=== PATIENT | female | born 1950 | race Caucasian/White ===

== ENCOUNTER 2018-04-03 17:34 | Inpatient (IN) ==
--- NOTE | 2018-04-03 18:12 | ED ---
HPI General Chief complaint: Medical Clearance Stated complaint: Psych Eval Time Seen by Provider: 04/03/18 17:55 Source: patient and EMS Mode of arrival: EMS Limitations: no limitations History of Present Illness HPI Narrative: Patient is a 67-year-old female presenting to emergency department by EMS for evaluation of shortness of breath. Patient voluntarily presented to [facility], during the intake she reported that she had COPD and had chronic shortness of breath. The stated that she is out of their scope of care and sent her to the emergency department. Upon arrival patient reports that she has been anxious and feels overwhelmed and depressed because of her living situation. She states that her mother's landlord is no longer allowing her to stay in that home because she is not on the lease. She is also stating that he is requiring her to do things to the home that she cannot afford to do such as wagon washer and put mulch around the home. Patient states her family is 4 hours away in [place], she states that they are not available to help financially or physically. Patient reports that the situation is becoming too much for her to handle and she feels like going outside and is throwing her hands up and screaming. Patient reports a previous suicide attempt when she was in her early 20s by overdose. Patient denies any nausea, vomiting, chest pain, abdominal pain, shortness of breath currently. MD complaint: medical clearance requested Reason for Medical Clearance: psychiatric condition Alleged Intoxication: No Traumatic Symptoms: denies traumatic injury Home Medications Medication Instructions Recorded Confirmed albuterol sulfate 2.5 mg INHALATION Q4H PRN 04/03/18 04/03/18 albuterol sulfate [Proventil HFA] 2 puff INHALATION Q4H PRN 04/03/18 04/03/18 aspirin 81 mg PO DAILY 04/03/18 04/03/18 diltiazem HCl 180 mg PO DAILY 04/03/18 04/03/18 gabapentin 100 mg PO BID 04/03/18 04/03/18 hydralazine 50 mg PO TID 04/03/18 04/03/18 ranitidine HCl 150 mg PO BID 04/03/18 04/03/18 rivaroxaban 20 mg PO DAILY 04/03/18 04/03/18 Allergies Allergy/AdvReac Type Severity Reaction Status Date / Time No Known Allergies Allergy Verified 04/03/18 17:58 Review of Systems Except as stated in HPI: all other systems reviewed are negative PMFSH History History Provided By: Patient Medical History Medical History Anterior urethral stricture (Acute) Anxiety (Acute) COPD (chronic obstructive pulmonary disease) (Acute) Depression (Acute) Edema (Acute) Hypertension (Acute) Pulmonary embolism (Acute) Surgical History Surgical History Hx of cholecystectomy (Acute) Previous section (Acute) Social History Social History Substance History: No History of Abuse Second Hand Smoke Exposure: No Smoking Status: Former smoker Tobacco Type: Cigarettes How Often Do You Have a Drink Containing Alcohol: Never Recent Travel in [facility] within the Last 8 Weeks: No Recent Out of Country Travel within the Last 8 Weeks: No Exam Narrative Exam Narrative: GENERAL: Disheveled, alert, well-developed female. Presenting in no acute distress. SKIN: Focused skin assessment warm/dry. HEAD: Atraumatic. Normocephalic. EYES: Pupils equal and round. No scleral icterus. No injection or drainage. ENT: No nasal bleeding or discharge. Mucous membranes pink and moist. NECK: Trachea midline. No JVD. CARDIOVASCULAR: Regular rate and rhythm. No murmur appreciated. RESPIRATORY: No accessory muscle use. Diminished in bases GASTROINTESTINAL: Abdomen soft, non-tender, nondistended. Hepatic and splenic margins not palpable. MUSCULOSKELETAL: No obvious deformities. No clubbing. No cyanosis. No edema. NEUROLOGICAL: Awake and alert. No obvious cranial nerve deficits. Motor grossly within normal limits. Normal speech. PSYCHIATRIC: Appropriate mood and affect; insight and judgment normal. Course Initial Documented Vital Signs Temperature 97.9 F 04/03/18 17:53 Pulse Rate 80 04/03/18 17:53 Respiratory Rate 24 04/03/18 17:53 Blood Pressure 154/69 H 04/03/18 17:53 Pulse Oximetry 96 04/03/18 17:53 Last Documented Vital Signs Temperature 97.9 F 04/03/18 17:53 Pulse Rate 82 04/03/18 18:11 Respiratory Rate 18 04/03/18 18:11 Blood Pressure 154/69 H 08/03/18 18:04 Pulse Oximetry 96 04/03/18 18:11 Medical Decision Making MDM Narrative Medical decision making narrative: Patient is a 59-year-old female that presented to the emergency department voluntarily for psychiatric evaluation. She has stable vital signs. Mental health screening discussed with the patient. Psychiatric screen ordered. Labs reviewed, no acute finding identified. Chest x-ray shows no acute abnormalities. Patient was given nebulizer treatments, Solu-Medrol and IV fluids in the emergency department. She is well oxygenated on room air, patient is cleared for psychiatric screen. Differential Diagnosis Differential Diagnosis: OPD exacerbation versus metabolic abnormality versus psychosis versus depression versus suicidal ideations versus anxiety versus other Lab Data Result diagrams: 04/03/18 18:06 04/03/18 18:06 Lab Results 04/03/18 04/03/18 04/03/18 Range/Units 18:06 18:06 18:06 WBC 9.4 (4.0-11.0) th/mm3 RBC 4.38 (4.00-5.30) mil/mm3 Hgb 11.8 (11.6-15.3) gm/dL Hct 35.5 (35.0-46.0) % MCV 81.1 (80.0-100.0) fL MCH 27.0 (27.0-34.0) pg MCHC 33.3 (32.0-36.0) % RDW 22.8 H (11.6-17.2) % Plt Count 225 (150-450) th/mm3 MPV 8.2 (7.0-11.0) fL Neut % (Auto) 89.3 H (16.0-70.0) % Lymph % (Auto) 7.4 L (9.0-44.0) % [place] % (Auto) 2.8 (0.0-8.0) % Eos % (Auto) 0.3 (0.0-4.0) % Baso % (Auto) 0.2 (0.0-2.0) % Neut # (Auto) 8.4 H (1.8-7.7) th/mm3 Lymph # (Auto) 0.7 L (1.0-4.8) th/mm3 [place] # (Auto) 0.3 (0.0-0.9) th/mm3 Eos # (Auto) 0.0 (0.0-0.4) th/mm3 Baso # (Auto) 0.0 (0.0-0.2) th/mm3 WBC Differential . Differential Comment Auto diff final Sodium 142 (136-145) meq/L Potassium 4.1 (3.5-5.1) meq/L Chloride 109 H (98-107) meq/L Carbon Dioxide 23.8 (21.0-32.0) meq/L Anion Gap 9 (5-15) meq/L BUN 16 (7-18) mg/dL Creatinine 1.53 H (0.50-1.00) mg/dL Estimated GFR 34 L (>89) mL/min Random Glucose 239 H (74-106) mg/dL Calcium 8.8 (8.5-10.1) mg/dL Magnesium 2.3 (1.5-2.5) mg/dL Total Bilirubin 0.4 (0.2-1.0) mg/dL AST 12 L (15-37) U/L ALT 17 (10-53) U/L Alkaline Phosphatase 66 (45-117) U/L Total Protein 6.9 (6.4-8.2) g/dL Albumin 3.8 (3.4-5.0) g/dL TSH 1.510 (0.358-3.740) uIU/mL Imaging Data Radiologist's impression: Chest X-Ray 04/03/18 17:58 CONCLUSION: Negative examination. Reviewed radiology reports Discharge Plan Discharge Disposition Patient Disposition: 30 Still Patient Discharge Condition Condition: Stable Discharge Details Diagnosis: Medical clearance for psychiatric admission, COPD (chronic obstructive pulmonary disease) Physicians Team ED Provider: Isabelle Caal ED Midlevel Provider: Kaila Pan Primary Care Provider: Primary Care Violet Kim Rxs /Orders / Referrals /Forms Prescriptions: No Action diltiazem HCl 180 mg Capsule,Extended Release 24 Hr 180 mg PO DAILY RF: 0 albuterol sulfate 2.5 mg /3 mL (0.083 %) Solution For Nebulization 2.5 mg INHALATION Q4H PRN (Reason: Shortness Of Breath) RF: 0 aspirin 81 mg Tablet,Chewable 81 mg PO DAILY RF: 0 hydralazine 50 mg Tablet 50 mg PO TID RF: 0 ranitidine HCl 150 mg Capsule 150 mg PO BID RF: 0 gabapentin 100 mg Capsule 100 mg PO BID RF: 0 albuterol sulfate [Proventil HFA] 90 mcg/actuation Hfa Aerosol Inhaler 2 puff INHALATION Q4H PRN (Reason: Wheezing) RF: 0 rivaroxaban 20 mg Tablet 20 mg PO DAILY RF: 0 Discharge Interventions Interventions: Vital Signs Last Done: 04/03/18 18:04 Status ED Status: With Doctor
[2018-04-03 18:20] LABS: Baso % (Auto) 0.2 % (0.0-2.0); Eos % (Auto) 0.3 % (0.0-4.0); Hematocrit 35.5 % (35.0-46.0); Hemoglobin 11.8 gm/dL (11.6-15.3); Lymph # (Auto) 0.7 th/mm3 (1.0-4.8); Lymph % (Auto) 7.4 % (9.0-44.0); Mean Corpuscular HGB Conc 33.3 % (32.0-36.0); Mean Corpuscular Volume 81.1 fL (80.0-100.0); Mean Platelet Volume 8.2 fL (7.0-11.0); Mono # (Auto) 0.3 th/mm3 (0.0-0.9); Mono % (Auto) 2.8 % (0.0-8.0); Neut # (Auto) 8.4 th/mm3 (1.8-7.7); Neut % (Auto) 89.3 % (16.0-70.0); Platelet Count 225 th/mm3 (150-450); Red Blood Count 4.38 mil/mm3 (4.00-5.30); Red Cell Distribution Width 22.8 % (11.6-17.2); White Blood Count 9.4 th/mm3 (4.0-11.0)
[2018-04-03 18:44] LABS: Alkaline Phosphatase 66 U/L (45-117); Total Protein 6.9 g/dL (6.4-8.2)
[2018-04-03 18:49] LABS: Alanine Aminotransferase 17 U/L (10-53); Albumin 3.8 g/dL (3.4-5.0); Anion Gap 9 meq/L (5-15); Aspartate Aminotransferase 12 U/L (15-37); Blood Urea Nitrogen 16 mg/dL (7-18); Calcium 8.8 mg/dL (8.5-10.1); Carbon Dioxide 23.8 meq/L (21.0-32.0); Chloride 109 meq/L (98-107); Glomerular Filtration Rate 34 mL/min (>89); Glucose,Random 239 mg/dL (74-106); Magnesium 2.3 mg/dL (1.5-2.5); Potassium 4.1 meq/L (3.5-5.1); Sodium 142 meq/L (136-145)
--- NOTE | 2018-04-03 19:31 | XR ---
EXAM DATE: 04/03/2018 7:17 PM EDT AGE/SEX: 67 years / Female INDICATIONS: Short of breath. CLINICAL DATA: This is the patient's initial encounter. Patient reports that signs and symptoms have been present for 2 days and indicates a pain score of 3/10. MEDICAL/SURGICAL HISTORY: None. None. COMPARISON: No prior exams available for comparison. FINDINGS: A single AP view of the chest demonstrates the lungs to be symmetrically aerated without evidence of mass, infiltrate or effusion. The cardiomediastinal contours are unremarkable. Osseous structures a re intact. CONCLUSION: Negative examination. Electronically signed by: Ezio Hart MD 04/03/2018 7:29 PM EDT
[2018-04-03] MEDS ORDERED: Sod Chloride 0.9% Inj 1,000 ML IV.SIG ONE (19:48)
[2018-04-03] MEDS ORDERED: MethylPREDNISolone Sod Succinate Inj 125 MG/2 ML Vial IV.PUSH ONE (19:48)
[2018-04-03] MEDS ORDERED: Acetaminophen 500 MG Tablet PO ONE (20:42)
[2018-04-03] MEDS ORDERED: ALPRAZolam 0.25 MG Tablet PO ONE (20:42)
[2018-04-03 20:57] LABS: Bacteria,Urine Many /hpf; Bilirubin,Urine Negative (Negative); Clarity,Urine Cloudy (Clear); Color,Urine Yellow (Yellw/Straw); Glucose,Urine (UA) 150 mg/dL (Negative); Hyaline Casts,Urine 7 /lpf (0-3); Leukocyte Esterase,Urine Large (Negative); Nitrite,Urine Positive (Negative); Squamous Epithelial Cell,Urine 1 /hpf (0-5)
[2018-04-04] MEDS ORDERED: Aluminum/Magnesium/Simethacone Susp 30 ML UDC PO PRN (02:00)
[2018-04-04] MEDS: Acetaminophen 325 MG Tablet PO PRN (03:22)
[2018-04-04 07:24] LABS: Calcium 9.2 mg/dL (8.5-10.1); Carbon Dioxide 20.3 meq/L (21.0-32.0)
[2018-04-04 07:28] LABS: Chol/HDL Ratio 4.44 Ratio; HDL Cholesterol 66.1 mg/dL (40.0-60.0)
[2018-04-04] MEDS: hydrALAZINE 50 MG Tablet PO SCH ×3 (09:52→17:12)
[2018-04-04] MEDS: Gabapentin 100 MG Capsule PO SCH ×2 (09:52→20:25)
[2018-04-04] MEDS: Famotidine 20 MG Tablet PO SCH ×2 (09:53→20:25)
[2018-04-04] MEDS: dilTIAZem CD 180 MG Capsule PO SCH (10:33)
[2018-04-04] MEDS: Rivaroxaban 20 MG Tablet PO SCH (10:33)
[2018-04-04] MEDS ORDERED: Sertraline 50 MG Tablet PO ONE (11:12)
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
[2018-04-04] MEDS ORDERED: Non-Formulary Drug (Diltiazem Hcl [Diltiazem Hcl] 180 MG) PO SCH (15:00)
[2018-04-04] MEDS ORDERED: Rivaroxaban 20 MG Tablet PO SCH (15:00)
--- NOTE | 2018-04-04 17:44 | CT ---
EXAM DATE: 04/04/2018 5:40 PM EDT AGE/SEX: 67 years / Female INDICATIONS: Shortness of breath. CLINICAL DATA: This is the patient's initial encounter. Patient reports that signs and symptoms have been present for 1 day and indicates a pain score of 0/10. MEDICAL/SURGICAL HISTORY: Hypertension. Chronic obstructive pulmonary disease. Cholecystectomy. RADIATION DOSE: 10.85 CTDI (mGy) COMPARISON: No prior exams available for comparison. TECHNIQUE: Volumetric scanning was performed using a multi-row detector CT scanner during bolus infu lidia of 70 ml Omnipaque 350 (iohexol) nonionic water-soluble contrast as a single exam dose. The vikki a was post processed with a variety of visualization algorithms including full volume maximum intensi ty projection and sliding thin slab reformation. Using automated exposure control and adjustment of the mA and/or kV according to patient size, radiation dose was kept as low as reasonably achievable t o obtain optimal diagnostic quality images. DICOM format image data is available electronically for review and comparison. FINDINGS: No filling defects are seen to suggest pulmonary embolic disease. There is no lung consolidation. No pleural or pericardial effusion. Moderate emphysema. No hilar, mediastinal or axillary adenopathy. Mo derate coronary calcifications. No acute findings in the upper abdomen. CONCLUSION: 1. Negative for pulmonary embolus. Emphysema. Moderate coronary calcifications. Electronically signed by: Ezio Hart MD 04/04/2018 5:43 PM EDT
--- NOTE | 2018-04-04 18:22 | P.CON ---
History of Present Illness Service: Hospitalist Consult date: 04/04/18 Requesting Physician: Brando Khan Reason for Consult: Medical Management Primary Care Provider: No Primary Care Physician Chief Complaint: I can't breathe History of Present Illness: Patient is a 67-year-old female who presented to the emergency room by EMS for evaluation of shortness of breath. She had previously been at [facility] and during intake she reported COPD with shortness of breath and they directed her to the emergency room. Upon arrival to the emergency room she reported anxiety and depression and was admitted to inpatient psychiatry for additional evaluation. Past medical history includes COPD, asthma, hypertension diabetes, pulmonary embolism, peripheral artery disease with a stent in the left leg. Patient is a somewhat poor historian however it appears that her PE was a result of DVT. She tells me that she is not taking any medication for her diabetes as she feels it resolved after she lost 40 her feet pounds. She does not know prior A1c. She does have a history of cardiac problems for which she takes Cardizem however she cannot tell me details. She does report having been in the hospital and plaque at least 10 times last year. She did bring in her medications -multiple pill bottles are found partially empty -patient's adherence to medical plan is questionable. Patient is seen sitting in room after breathing treatment. She reports continued SOB despite treatments. Reports that she had chest pain last night however is not able to quantify the pain -eventually settles on a description of fluttering rather than true pain. Pain resolved on its own after a few minutes. It is not repeated since. She does complain of swelling in her feet bilaterally however this is chronic. No new calf pain tenderness. [facility] - History History Provided By: Patient, Medical Record - Medical History Medical History: Medical History (Last Reviewed 04/03/18 @ 18:12 by LEODAN Khoury) Anterior urethral stricture Anxiety COPD (chronic obstructive pulmonary disease) Depression Edema Hypertension Pulmonary embolism - Surgical History Surgical History: Surgical History (Last Reviewed 04/03/18 @ 18:12 by LEODAN Khoury) Hx of cholecystectomy Previous section - Tobacco History Second Hand Smoke Exposure: No Smoking Status: Never smoker Tobacco Type: Cigarettes - Alcohol History How Often Do You Have a Drink Containing Alcohol: Never - Substance Use History Substance History: Past History - Substance Use Type Alcohol Status: Sustained Remission Route Used: By Mouth Comment: she used to smoke too - Travel History Recent Travel in the [place] Within the Last 8 Weeks: No Recent Travel Out of the Country Within the Last 8 Weeks: No - Immunization History Tetanus Immunization: Unsure Hx Influenza Vaccine This Season: Yes Medications and Allergies Active Medications: Active Medications Acetaminophen (Tylenol) 650 mg PO Q4H PRN PRN Reason: Pain 1-5 or Temp >101F Last Admin: 04/04/18 03:22 Dose: 650 mg Al Hydrox/Mg Hydrox/Simethicone (Mag-Al Plus Susp Liq) 30 ml PO Q6H PRN PRN Reason: DYSPEPSIA Al Hydroxide/Mg Hydroxide (Milk Of Magnesia Liq) 30 ml PO Q12H PRN PRN Reason: Constipation Albuterol (Ventolin Hfa Inh) 2 puff INH Q4H PRN PRN Reason: SHORTNESS OF BREATH Albuterol (Albuterol Neb (Prn)) 2.5 mg NEB Q4HR NEB PRN PRN Reason: SHORTNESS OF BREATH Last Admin: 04/04/18 14:05 Dose: 2.5 mg Aspirin (Aspirin Chew) 81 mg PO DAILY [facility] Last Admin: 04/04/18 09:53 Dose: 81 mg Diltiazem HCl (Cardizem Cd 24hr) 180 mg PO DAILY [facility] Last Admin: 04/04/18 10:33 Dose: 180 mg Diphenhydramine HCl (Benadryl Inj) 50 mg IM HS PRN PRN Reason: INSOMNIA Diphenhydramine HCl (Benadryl) 50 mg PO HS PRN PRN Reason: INSOMNIA Famotidine (Pepcid) 20 mg PO BID [facility] Last Admin: 04/04/18 09:53 Dose: 20 mg Gabapentin (Neurontin) 100 mg PO BID [facility] Last Admin: 04/04/18 09:52 Dose: 100 mg Hydralazine HCl (Apresoline) 50 mg PO TID [facility] Last Admin: 04/04/18 17:12 Dose: 50 mg Hydroxyzine HCl (Atarax) 50 mg PO Q6H PRN PRN Reason: ANXIETY Last Admin: 04/04/18 17:12 Dose: 50 mg Rivaroxaban (Xarelto) 20 mg PO DAILY [facility] Last Admin: 04/04/18 10:33 Dose: 20 mg Sertraline HCl (Zoloft) 50 mg PO DAILY [facility] Sodium Chloride (Ns Flush) 2 ml IV.FLUSH PRN PRN PRN Reason: FLUSH AFTER USING IV ACCESS Allergies Allergy/AdvReac Type Severity Reaction Status Date / Time No Known Allergies Allergy Verified 04/03/18 17:58 Home Medications Medication Instructions Recorded Confirmed Type albuterol sulfate 2.5 mg INHALATION Q4H PRN 04/03/18 04/03/18 History albuterol sulfate [Proventil HFA] 2 puff INHALATION Q4H PRN 04/03/18 04/03/18 History aspirin 81 mg PO DAILY 04/03/18 04/03/18 History diltiazem HCl 180 mg PO DAILY 04/03/18 04/03/18 History gabapentin 100 mg PO BID 04/03/18 04/03/18 History hydralazine 50 mg PO TID 04/03/18 04/03/18 History ranitidine HCl 150 mg PO BID 04/03/18 04/03/18 History rivaroxaban 20 mg PO DAILY 04/03/18 04/03/18 History Physical Exam Vital signs: Vital Signs 04/03/18 17:53 04/03/18 18:04 04/03/18 18:11 Temperature 97.9 F Pulse Rate 80 80 82 Respiratory Rate 24 22 18 Blood Pressure 154/69 H 154/69 H Pulse Oximetry 96 96 96 04/04/18 02:00 04/04/18 03:08 04/04/18 04:00 Temperature 97.8 F Pulse Rate 22 L 99 H Respiratory Rate 20 18 Blood Pressure 252/114 H 172/89 H Pulse Oximetry 96 04/04/18 06:28 04/04/18 08:29 04/04/18 09:28 Temperature 98.1 F Pulse Rate 83 84 80 Respiratory Rate 16 20 18 Blood Pressure 218/100 H 190/80 H Pulse Oximetry 98 95 04/04/18 14:05 Temperature Pulse Rate 79 Respiratory Rate 20 Blood Pressure Pulse Oximetry Intake & Output 04/03/18 04/04/18 04/04/18 18:59 06:59 18:59 Weight 79.379 kg 76.9 kg Other: Weight On Admission 76.9 kg Assessment and Plan - Plan 67-year-old female who presented to the emergency room by EMS for evaluation of shortness of breath. She had previously been at [facility] and during intake she reported COPD with shortness of breath and they directed her to the emergency room. Upon arrival to the emergency room she reported anxiety and depression and was admitted to inpatient psychiatry for additional evaluation. Past medical history includes COPD, asthma, hypertension, diabetes , pulmonary embolism, peripheral artery disease with a stent in the left leg. Patient is a somewhat poor historian. Depression/ anxiety -Managed by psychiatry COPD -Albuterol, nebs, prednisone -Monitor sats; [facility]. DVT/PE -Continue Xarelto -Rule out new PE -CTAP done 04/04 negative for PE Hypertension -Continue Cardizem -ECG ordered; BNP r/o CHF Edema -Add Lasix; monitor lab Diabetes - resolved -Not currently taking any medications; A1C 6.0 UTI - acute -04/04 started Keflex for 7 days DVT prophylaxis: Patient is on Xarelto Discussed with: Patient, nurse and Dr. Alvarez
[2018-04-04] MEDS: Furosemide 20 MG Tablet PO SCH (19:54)
[2018-04-04] MEDS: predniSONE 20 MG Tablet PO SCH (19:54)
[2018-04-05 07:07] LABS: Lymph # (Auto) 0.8 th/mm3 (1.0-4.8); Lymph % (Auto) 7.1 % (9.0-44.0); Mean Corpuscular HGB Conc 32.3 % (32.0-36.0); Mean Corpuscular Hemoglobin 26.3 pg (27.0-34.0); Mean Corpuscular Volume 81.4 fL (80.0-100.0); Mean Platelet Volume 8.2 fL (7.0-11.0); Mono # (Auto) 0.4 th/mm3 (0.0-0.9); Mono % (Auto) 3.8 % (0.0-8.0); Neut # (Auto) 9.7 th/mm3 (1.8-7.7); Neut % (Auto) 89.1 % (16.0-70.0); Platelet Count 222 th/mm3 (150-450); Red Blood Count 4.17 mil/mm3 (4.00-5.30); Red Cell Distribution Width 22.8 % (11.6-17.2); White Blood Count 10.9 th/mm3 (4.0-11.0)
[2018-04-05 07:40] LABS: Calcium 9.1 mg/dL (8.5-10.1); Carbon Dioxide 24.5 meq/L (21.0-32.0); Potassium 4.3 meq/L (3.5-5.1)
--- NOTE | 2018-04-05 08:48 | US ---
EXAM DATE: 04/05/2018 8:43 AM EDT AGE/SEX: 67 years / Female INDICATIONS: Bilateral leg swelling. CLINICAL DATA: This is the patient's initial encounter. Patient reports that signs and symptoms have been present for 1 week and indicates a pain score of 9/10. MEDICAL/SURGICAL HISTORY: Chronic obstructive pulmonary disease. Hypertension. Anterior urethr al stricture. Anxiety. Depression. Edema. Pulmonary embolism. Cholecystectomy. section. COMPARISON: No prior exams available for comparison. TECHNIQUE: Venous ultrasound of both lower extremities was performed from the inguinal ligament to t he proximal calf. Real-time, color Doppler and spectral tracing, compression and augmentation techni ques were used. FINDINGS: Right Leg: Normal compression of the deep venous system from the inguinal region to the proximal teri f. No echogenic clot is seen. Normal response of the venous system to augmentation and respiration. Left Leg: Normal compression of the deep venous system from the inguinal region to the proximal calf . No echogenic clot is seen. Normal response of the venous system to augmentation and respiration. Other: None. CONCLUSION: 1. The study is negative for bilateral lower extremity deep venous thrombosis. Electronically signed by: Vandana Quintanilla MD 04/05/2018 8:46 AM EDT
--- NOTE | 2018-04-05 08:56 | ECG ---
Date Performed: 04/04/2018 Time Performed: 15:20:27 PTAGE: 67 years EKG: Sinus rhythm MODERATE T-WAVE ABNORMALITY, CONSIDER LATERAL ISCHEMIA MODERATE T-WAVE ABNORMALITY, CONSIDER INFERIO R ISCHEMIA ABNORMAL ECG NO PREVIOUS TRACING DOCTOR: Melisa Rebollar Interpretating Date/Time 04/05/2018 08:54:15
[2018-04-05] MEDS: Famotidine 20 MG Tablet PO SCH ×2 (10:22→20:54)
[2018-04-05] MEDS: Gabapentin 100 MG Capsule PO SCH ×2 (10:22→20:54)
[2018-04-05] MEDS: Furosemide 20 MG Tablet PO SCH (10:22)
[2018-04-05] MEDS: dilTIAZem CD 180 MG Capsule PO SCH (10:22)
[2018-04-05] MEDS: Sertraline 50 MG Tablet PO SCH (10:22)
[2018-04-05] MEDS: predniSONE 20 MG Tablet PO SCH (10:23)
[2018-04-05] MEDS: Rivaroxaban 20 MG Tablet PO SCH (10:23)
[2018-04-05] MEDS: hydrALAZINE 50 MG Tablet PO SCH ×3 (10:24→17:28)
--- NOTE | 2018-04-05 12:40 | ECHRPT ---
Indication: HEART FAILURE CONCLUSIONS Normal left ventricular size. Mild concentric left ventricular hypertrophy. The left ventricular systolic function is hyperdynamic with an estimated ejection fraction in the ra nge of 65- 70%. A possible atrial level shunt is demonstrated by color flow Doppler interrogation, clinical correlat ion recommended. Aortic valve sclerosis is present. There is trace tricuspid valve regurgitation. The estimated pulmonary arterial pressure is 36 mmHg. Trivial pulmonary valve regurgitation. mild mr A prominent epicardial fat pad is present. BP: / HR: Rhythm: Sinus, PVCs MEASUREMENTS (Male / Female) Normal Values Technical Quality:Fair 2D ECHO LV Diastolic Diameter PLAX 5.3 cm 4.2 - 5.9 / 3.9 - 5.3 cm LV Systolic Diameter PLAX 3.4 cm IVS Diastolic Thickness 1.4 cm 0.6 - 1.0 / 0.6 - 0.9 cm LVPW Diastolic Thickness 1.4 cm 0.6 - 1.0 / 0.6 - 0.9 cm LV Relative Wall Thickness 0.5 RV Internal Dim ED PLAX 2.0 cm LVOT Diameter 2.4 cm Aortic Root Diameter 2.8 cm LA Systolic Diameter LX 3.8 cm 3.0 - 4.0 / 2.7 - 3.8 cm M-MODE AV Cusp Separation MM 1.7 cm DOPPLER AV Peak Velocity 174.0 cm/s AV Peak Gradient 12.1 mmHg AV Mean Gradient 6.0 mmHg AV Velocity Time Integral 35.5 cm LVOT Peak Velocity 96.3 cm/s LVOT Peak Gradient 3.7 mmHg LVOT Velocity Time Integral 19.2 cm AV Area Cont Eq vti 2.4 cm AV Area Cont Eq pk 2.5 cm Mitral E Point Velocity 99.2 cm/s Mitral A Point Velocity 81.4 cm/s Mitral E to A Ratio 1.2 LV E' Lateral Velocity 8.3 cm/s Mitral E to LV E' Lateral Ratio 12.0 LV E' Septal Velocity 6.6 cm/s Mitral E to LV E' Septal Ratio 15.0 TR Peak Velocity 255.0 cm/s TR Peak Gradient 26.0 mmHg Right Atrial Pressure 10.0 mmHg Pulmonary Artery Systolic Pressu 36.0 mmHg Right Ventricular Systolic Press 36.0 mmHg PV Peak Velocity 79.7 cm/s PV Peak Gradient 2.5 mmHg FINDINGS LEFT VENTRICLE Normal left ventricular size. Mild concentric left ventricular hypertrophy. The left ventricular systolic function is hyperdynamic with an estimated ejection fraction in the ra nge of 65- 70%. RIGHT VENTRICLE Normal right ventricular size and systolic function. LEFT ATRIUM The left atrial size is normal. RIGHT ATRIUM The right atrial size is normal. ATRIAL SEPTUM A possible atrial level shunt is demonstrated by color flow Doppler interrogation, clinical correlat ion recommended. AORTA The aortic root and proximal ascending aorta are normal in size on limited imaging. MITRAL VALVE Structurally normal mitral valve. No mitral valve stenosis or regurgitation. AORTIC VALVE Aortic valve sclerosis is present. TRICUSPID VALVE There is trace tricuspid valve regurgitation. The estimated pulmonary arterial pressure is 36 mmHg. PULMONARY VALVE Trivial pulmonary valve regurgitation. VESSELS The inferior vena cava is normal in size. PERICARDIUM A prominent epicardial fat pad is present. No pericardial effusion. Robert Hooks MD, FACC, [facility] (Electronically Signed) Final Date:05 April 2018 12:38
--- NOTE | 2018-04-05 13:23 | P.PNPSY ---
Subjective Remarks: Reviewed electronic medical records and discussed case with staff. Follow-up was conducted in the day room. Her nurse reports she remains very somatic. I found the patient eating heartily of her lunch tray. She reports that she is feeling "terrible". When asked if she has attended any of the group therapy sessions she responded, "why would I do that". She then goes on to say that she is here until her living arrangements and her medications are straightened out. When I explained to her that this is a psychiatric unit for people with mental illness she responds, "what I did not say I do not have one of those". She has been observed in the halls requesting breathing treatments stating she is having difficulty breathing although she talks without any shortness of breath. Mental Status Examination Appearance: Disheveled (Slightly) Consciousness: Alert Orientation: Person, Place, Date/Time Motor Activity: Normal gait Speech: Unremarkable Language: Adequate Fund of Knowledge: Inadequate Attention and Concentration: Adequate Memory: Unremarkable Mood: Anxious Affect: Anxious Thought Process & Associations: Intact, Linear Thought Content: Appropriate Hallucination Type: None Delusion Type: None Suicidal Ideation: No Suicidal Plan: No Suicidal Intention: No Homicidal Ideation: No Homicidal Plan: No Homicidal Intention: No Insight: Fair Judgment: Impulsive Assessment and Plan - Assessment (1) Acute adjustment disorder with mixed anxiety and depressed mood Code(s): F43.23 - Adjustment disorder with mixed anxiety and depressed mood Status: Acute - Plan Plan: Patient will be reevaluated tomorrow by the attending psychiatrist. Continue with current treatment plan. Justification for Continued Inpatient Stay: Moving this patient to a less restrictive environment would likely result in decompensation.
--- NOTE | 2018-04-05 13:55 | P.PN ---
Subjective Interval history: Patient is seen sitting in room. She has just completed a breathing treatment. She tells me she is breathing better however she very quickly becomes anxious as she discusses her situation. Appears to be fixated on what will happen to her when she is discharged; very worried about the fact that she has no money. Denies any chest pain. Denies any nausea vomiting or diarrhea. She is tolerating her meals well. Normal bowel movements and urination per her report. Physical Exam Vital signs: Vital Signs 04/04/18 14:05 04/04/18 21:17 04/05/18 04:00 Temperature Pulse Rate 79 90 92 H Respiratory Rate 20 18 18 Blood Pressure Pulse Oximetry 98 04/05/18 05:13 04/05/18 10:06 Temperature 97.9 F Pulse Rate 62 62 Respiratory Rate 18 16 Blood Pressure 175/76 H Pulse Oximetry 98 Intake & Output 04/04/18 04/05/18 04/05/18 18:59 06:59 18:59 Intake Total 360 / 360 Balance 360 / 360 Intake: Oral 360 / 360 Narrative: GENERAL: Well-nourished, well-developed adult female in no obvious distress. SKIN: Warm and dry. HEAD: Atraumatic. Normocephalic. CARDIOVASCULAR: Regular rate and rhythm. RESPIRATORY: No accessory muscle use. wheeze. Breath sounds equal bilaterally. GASTROINTESTINAL: Abdomen soft, non-tender, non-distended. Positive bowel sounds. MUSCULOSKELETAL: Generalized edema lower extremities, + 1 at ankles. No obvious deformities. NEUROLOGICAL: Awake and alert. No obvious cranial nerve deficits. Motor grossly within normal limits. Normal speech. Results - Labs CBC & Chem 7: 04/05/18 06:35 04/05/18 06:35 Laboratory Results - last 24 hr 04/04/18 04/04/18 04/04/18 06:21 16:07 16:07 WBC RBC Hgb Hct MCV MCH MCHC RDW Plt Count MPV Neut % (Auto) Lymph % (Auto) [place] % (Auto) Eos % (Auto) Baso % (Auto) Neut # (Auto) Lymph # (Auto) [place] # (Auto) Eos # (Auto) Baso # (Auto) WBC Differential Differential Comment D-Dimer Quant (PE/DVT) 0.21 Sodium Potassium Chloride Carbon Dioxide Anion Gap BUN Creatinine Estimated GFR Random Glucose Hemoglobin A1c 6.0 Calcium B-Natriuretic Peptide 358 H 04/05/18 04/05/18 06:35 06:35 WBC 10.9 RBC 4.17 Hgb 11.0 L Hct 34.0 L MCV 81.4 MCH 26.3 L MCHC 32.3 RDW 22.8 H Plt Count 222 MPV 8.2 Neut % (Auto) 89.1 H Lymph % (Auto) 7.1 L [place] % (Auto) 3.8 Eos % (Auto) 0.0 Baso % (Auto) 0.0 Neut # (Auto) 9.7 H Lymph # (Auto) 0.8 L [place] # (Auto) 0.4 Eos # (Auto) 0.0 Baso # (Auto) 0.0 WBC Differential . Differential Comment Auto diff final D-Dimer Quant (PE/DVT) Sodium 143 Potassium 4.3 Chloride 109 H Carbon Dioxide 24.5 Anion Gap 10 BUN 26 H Creatinine 1.30 H Estimated GFR 41 L Random Glucose 177 H D Hemoglobin A1c Calcium 9.1 B-Natriuretic Peptide Microbiology 04/03/18 20:40 Clean Catch Urine Urine Culture - Final Escherichia coli - Imaging Impressions Chest CTA 04/04/18 00:00 CONCLUSION: 1. Negative for pulmonary embolus. Emphysema. Moderate coronary calcifications. Venous Doppler Study 04/05/18 00:00 CONCLUSION: 1. The study is negative for bilateral lower extremity deep venous thrombosis. Assessment and Plan - Plan 67-year-old female who presented to the emergency room by EMS for evaluation of shortness of breath. She had previously been at [facility] and during intake she reported COPD with shortness of breath and they directed her to the emergency room. Upon arrival to the emergency room she reported anxiety and depression and was admitted to inpatient psychiatry for additional evaluation. Past medical history includes COPD, asthma, hypertension, diabetes , pulmonary embolism, peripheral artery disease with a stent in the left leg. Patient is a somewhat poor historian. Depression/ anxiety -Managed by psychiatry COPD -Albuterol, nebs, prednisone (5 day course; avoid taper as pt is non-adherent and would likely fail to complete if discharged early) -Monitor sats; appears stable DVT/PE -Continue Xarelto -Rule out new PE -CTAP done 04/04 negative for PE; Doppler negative for DVT Hypertension -Continue Cardizem -ECG ordered -sinus rhythm; BNP r/o CHF -Echo done 04/05 EF 65-70%; possible atrial level shunt -cardiology consult placed for additional evaluation; appreciate assistance -Nursing is attempting to get prior records from [facility] [place] Edema -Add Lasix; monitor lab Diabetes - resolved -Not currently taking any medications; A1C 6.0 UTI - acute -04/04 started Keflex for 7 days DVT prophylaxis: Patient is on Xarelto Discussed with: Patient, nurse and Dr. Alvarez
[2018-04-06] MEDS: hydrALAZINE 50 MG Tablet PO SCH ×3 (09:08→17:41)
[2018-04-06] MEDS: Rivaroxaban 20 MG Tablet PO SCH (09:08)
[2018-04-06] MEDS: dilTIAZem CD 180 MG Capsule PO SCH (09:08)
[2018-04-06] MEDS: Sertraline 50 MG Tablet PO SCH (09:09)
[2018-04-06] MEDS: predniSONE 20 MG Tablet PO SCH (09:09)
[2018-04-06] MEDS: Gabapentin 100 MG Capsule PO SCH ×2 (09:09→20:36)
[2018-04-06] MEDS: Famotidine 20 MG Tablet PO SCH ×3 (09:09→20:38)
[2018-04-06] MEDS: Furosemide 40 MG Tablet PO SCH (09:09)
--- NOTE | 2018-04-06 09:40 | P.PNPSY ---
Subjective Remarks: Patient seen and examined with nurse. Chart reviewed. Case discussed with nursing staff who reports patient slept well overnight and has presented no behavioral problem. On my examination today, the patient presents as somewhat disheveled although she does appear to be attending to basic needs. She complains of anxiety particularly regarding her living situation. Her main focus seems to be on her social situation and she is requesting counselor support to obtain help with Medicaid, food stamps and housing. I have discussed the case with counselor who reports that she has offered the patient assisted living placement, but the patient has declined any sort of placement and wishes to return home. Patient denies any suicidal or homicidal ideation at denies side effects from medications. No acute physical complaints. Vital Signs Temp Pulse Resp BP Pulse Ox 04/06/18 06:00 97.8 F 88 18 156/84 H 95 04/06/18 04:37 58 L 24 04/05/18 21:56 76 20 158/74 H 04/05/18 20:52 104 H 19 04/05/18 18:30 66 170/72 H 97 04/05/18 18:22 73 18 220/91 H 91 L Laboratory Tests 04/03/18 04/03/18 04/04/18 18:06 18:06 16:07 WBC Hgb Plt Count D-Dimer Quant (PE/DVT) 0.21 Sodium Potassium Chloride Carbon Dioxide BUN Creatinine Estimated GFR AST 12 L ALT 17 Alkaline Phosphatase 66 B-Natriuretic Peptide TSH 1.510 04/04/18 04/05/18 04/05/18 16:07 06:35 06:35 WBC 10.9 Hgb 11.0 L Plt Count 222 D-Dimer Quant (PE/DVT) Sodium 143 Potassium 4.3 Chloride 109 H Carbon Dioxide 24.5 BUN 26 H Creatinine 1.30 H Estimated GFR 41 L AST ALT Alkaline Phosphatase B-Natriuretic Peptide 358 H TSH Impressions Chest X-Ray 04/03/18 17:58 CONCLUSION: Negative examination. Chest CTA 04/04/18 00:00 CONCLUSION: 1. Negative for pulmonary embolus. Emphysema. Moderate coronary calcifications. Venous Doppler Study 04/05/18 00:00 CONCLUSION: 1. The study is negative for bilateral lower extremity deep venous thrombosis. Urinalysis and urine culture results reviewed. Review of Systems All other systems reviewed negative except as stated in HPI Mental Status Examination Appearance: Disheveled (Mild) Consciousness: Alert Orientation: x4 Motor Activity: Normal gait Speech: Unremarkable Language: Adequate Fund of Knowledge: Adequate Attention and Concentration: Adequate Memory: Unremarkable Mood: Anxious Affect: Anxious Thought Process & Associations: Intact, Logical, Linear Thought Content: Appropriate Hallucination Type: None Delusion Type: None Suicidal Ideation: No Suicidal Plan: No Suicidal Intention: No Homicidal Ideation: No Homicidal Plan: No Homicidal Intention: No Mental Status Exam Remarks: Insight and judgment are perhaps fair Assessment and Plan - Assessment (1) Acute adjustment disorder with mixed anxiety and depressed mood Code(s): F43.23 - Adjustment disorder with mixed anxiety and depressed mood Status: Acute - Plan Plan: Patient is complaining of some anxiety but denies SI or HI, denies psychotic symptoms. Unclear if there are psychiatric symptoms that necessitate inpatient psychiatric care at this time. As this is my first visit with the patient, I will continue to monitor on the inpatient unit overnight. Continue Zoloft as ordered. Continue to monitor on the inpatient unit. Hospitalist and cardiology input noted and appreciated. I have encouraged participation in groups and unit activities. Continue other medications and care as ordered. Justification for Continued Inpatient Stay: Monitoring on inpatient psychiatric unit Discharge Planning: Possible discharge in next 1-2 days Request Healthcare Surrogate/Guardian Advocate?: No
--- NOTE | 2018-04-06 12:40 | P.PN ---
Subjective Interval history: Patient is seen sitting in day room. She is initially very calm but becomes agitated and anxious as we talk. Continues to be focused on follow-up after discharge and how she will afford her medications. Tells me that her wheezing is improved but she still become short of breath very easily. Attempted to get more detailed cardiac history however she quickly becomes confused. Denies any chest pain. Denies any nausea vomiting, fever or chills. Bowel movements have been normal. Physical Exam Vital signs: Vital Signs 04/05/18 18:22 04/05/18 18:30 04/05/18 20:52 Temperature Pulse Rate 73 66 104 H Respiratory Rate 18 19 Blood Pressure 220/91 H 170/72 H Pulse Oximetry 91 L 97 04/05/18 21:56 04/06/18 04:37 04/06/18 06:00 Temperature 97.8 F Pulse Rate 76 58 L 88 Respiratory Rate 20 24 18 Blood Pressure 158/74 H 156/84 H Pulse Oximetry 95 Narrative: GENERAL: Well-nourished, well-developed adult female in no obvious distress. SKIN: Warm and dry. HEAD: Atraumatic. Normocephalic. CARDIOVASCULAR: Regular rate and rhythm. RESPIRATORY: No accessory muscle use. no wheeze. Breath sounds equal bilaterally. GASTROINTESTINAL: Abdomen soft, non-tender, non-distended. Positive bowel sounds. MUSCULOSKELETAL: Generalized edema lower extremities. No obvious deformities. NEUROLOGICAL: Awake and alert. No obvious cranial nerve deficits. Motor grossly within normal limits. Normal speech. Results - Labs CBC & Chem 7: 04/05/18 06:35 04/05/18 06:35 Microbiology 04/03/18 20:40 Clean Catch Urine Urine Culture - Final Escherichia coli - Imaging Impressions Chest X-Ray 04/03/18 17:58 CONCLUSION: Negative examination. Chest CTA 04/04/18 00:00 CONCLUSION: 1. Negative for pulmonary embolus. Emphysema. Moderate coronary calcifications. Assessment and Plan - Plan 67-year-old female who presented to the emergency room by EMS for evaluation of shortness of breath. She had previously been at [facility] and during intake she reported COPD with shortness of breath and they directed her to the emergency room. Upon arrival to the emergency room she reported anxiety and depression and was admitted to inpatient psychiatry for additional evaluation. Past medical history includes COPD, asthma, hypertension, diabetes , pulmonary embolism, peripheral artery disease with a stent in the left leg. Patient is a somewhat poor historian. Depression/ anxiety -Managed by psychiatry COPD -Albuterol, nebs, prednisone (5 day course; avoid taper as pt is non-adherent and would likely fail to complete if discharged early) -Monitor sats; appears stable DVT/PE -Continue Xarelto -Rule out new PE -CTAP done 04/04 negative for PE; Doppler negative for DVT Hypertension / CHF -Continue Cardizem; increased scheduled hydralazine to 75 mg TID. -ECG ordered -sinus rhythm; BNP elevated -Echo done 04/05 EF 65-70%; possible atrial level shunt -cardiology consult placed for additional evaluation; appreciate assistance -Nursing is attempting to get prior records from [facility] [place] Edema -Add Lasix; monitor lab Diabetes - resolved -Not currently taking any medications; A1C 6.0 UTI - acute -04/04 started Keflex for 7 days DVT prophylaxis: Patient is on Xarelto Discussed with: Patient, nurse and Dr. Obrien
--- NOTE | 2018-04-06 14:54 | MB ---
cc: Robert Hooks MD DATE: 04/06/2018 HISTORY OF PRESENT ILLNESS: Annemarie is a very pleasant 59-year-old lady with history of pulmonary embolism, COPD, currently in the psych unit. Consult is obtained for a possible atrial septal defect. The patient is currently lying in bed. She appears very anxious. She says she "doesn't feel good" but does not specify any details in terms of symptoms. Denies chest pain, shortness of breath, fever, chills, cough, GI or bleeding, PND or orthopnea, syncope or dizziness. PAST MEDICAL HISTORY: Includes anterior urethral stricture, anxiety, depression, edema, hypertension, cholecystectomy, and section. ALLERGIES: NONE. SOCIAL HISTORY: Denies tobacco use, denies alcohol use. MEDICATIONS: 1. Albuterol. 2. Aspirin 81 mg daily. 3. Cardizem-CD 180 mg a day. 4. Pepcid 10 mg b.i.d. 5. Lasix 40 mg daily. 6. Neurontin 100 mg b.i.d. 7. Hydralazine 75 mg t.i.d. 8. Atarax 50 mg p.r.n. 9. Prednisone 20 mg daily. 10. Xarelto 20 mg daily. 11. Zoloft 50 mg daily. PHYSICAL EXAMINATION: VITAL SIGNS: Pulse ranges between 58 and 104, blood pressure 156/84, respiratory rate 18, temperature 97.8. GENERAL: She is alert and oriented x 3, in mild distress. NECK: Supple. No JVD. No bruit. CARDIOVASCULAR: S1, S2. No murmurs, rubs or gallops. LUNGS: Clear to auscultation bilaterally. ABDOMEN: Soft, nontender, and nondistended with positive bowel sounds. EXTREMITIES: No lower extremity edema. DIAGNOSTIC STUDIES: A 2D echo read by myself on 04/05/2018 shows EF of 70%, possible atrial level shunt as demonstrated by color flow Doppler interrogation. PA systolic pressure equal to 36 mmHg. Chest x-ray negative examination. CTA of the chest negative for PE. Emphysema, moderate coronary artery calcifications. EKG: Normal sinus rhythm at 61 beats per minute. Asymmetric T-wave inversion and biphasic T-wave in V4, V5, V6, II, III, aVF. LABORATORY DATA: White count 10.9, hemoglobin 9.0, hematocrit 34.0, platelet count 222. INR is not done. Sodium 143, potassium 4.3, chloride 100, bicarbonate 24.5, BUN 26, creatinine 1.30. BNP is 358, LDL is 212. LFTs normal. Hemoglobin A1c is 6.0. DIAGNOSES: 1. Possible atrial septal defect. 2. Chronic obstructive pulmonary disease. 3. Coronary artery disease. 4. Hyperlipidemia. 5. Chronic renal insufficiency. 6. Chronic obstructive pulmonary disease. 7. Anemia. 8. History of pulmonary embolism. 9. Hypertension. DISCUSSION: At this point in time, the patient is adequately anticoagulated with Xarelto. There is no evidence of pressure volume overload by 2D echo. At this point in time, would continue Xarelto. We will also add Lipitor 80 given the coronary artery calcifications and the markedly elevated LDL. Liver function tests are normal. MD RAVI Stern/MAXINE , 02:27 PM , 02:36 PM
--- NOTE | 2018-04-07 09:34 | P.PNPSY ---
Subjective Remarks: Patient seen and examined with nurse. Chart reviewed. Case discussed with nursing staff. Case discussed in treatment team. Counselor notes that patient' s family is working on getting the patient placed in a nursing facility and a bed might be available later in the week. On my examination today, patient presents as fretful and anxious. She complains of feeling "overwhelmed and frightened." Main source of anxiety seems to be disposition plan. I try to review disposition options with patient, but she does not seem to be able to retain and weigh these options, I suspect secondary to anxiety. No SI/HI. No side effects from medications. Complains of paresthesias in fingertips. No other physical complaints. I have instructed the nurse to have the hospitalist follow up on this complaint. Vital Signs Temp Pulse Resp BP Pulse Ox 04/07/18 06:00 98.2 F 81 18 148/70 H 96 04/07/18 03:40 76 18 04/06/18 22:02 77 24 04/06/18 17:54 77 18 175/74 H 96 Labs reviewed. No new labs. Review of Systems All other systems reviewed negative except as stated in HPI (Limitation: Poor historian) Mental Status Examination Appearance: Disheveled (Mild) Consciousness: Alert Orientation: x4 Motor Activity: Normal gait Speech: Unremarkable Language: Adequate Fund of Knowledge: Adequate Attention and Concentration: Adequate Memory: Unremarkable Mood: Anxious (Ongoing) Affect: Anxious Thought Process & Associations: Circumstantial Thought Content: Appropriate Hallucination Type: None Delusion Type: None Suicidal Ideation: No Homicidal Ideation: No Insight: Fair Judgment: Impulsive Assessment and Plan - Assessment (1) Acute adjustment disorder with mixed anxiety and depressed mood Code(s): F43.23 - Adjustment disorder with mixed anxiety and depressed mood Status: Acute - Plan Plan: I discuss pharmacotherapeutic options for management of ongoing anxiety with patient. I will titrate patient's gabapentin to 100 mg 3 times a day to assist with management of anxiety, and I have discussed with patient that this is an "off label" use of this medication. Continue other psychotropics as ordered. Plan to attempt cognitive screening when the patient is less anxious; there may be some degree of underlying neurocognitive disorder. Hospitalist and cardiology input noted and appreciated. Continue other medications and care as ordered. Justification for Continued Inpatient Stay: Medication changes. High risk for decompensation in less restrictive environment. Discharge Planning: With the benefit of further observation I do believe the patient's anxiety is significant enough to warrant inpatient treatment. Possible discharge to nursing facility later in the week. Request Healthcare Surrogate/Guardian Advocate?: No
[2018-04-07] MEDS: hydrALAZINE 50 MG Tablet PO SCH ×3 (09:39→17:42)
[2018-04-07] MEDS: Sertraline 50 MG Tablet PO SCH (09:40)
[2018-04-07] MEDS: Famotidine 20 MG Tablet PO SCH ×2 (09:40→20:42)
[2018-04-07] MEDS: predniSONE 20 MG Tablet PO SCH (09:40)
[2018-04-07] MEDS: Furosemide 40 MG Tablet PO SCH (09:40)
[2018-04-07] MEDS: Rivaroxaban 20 MG Tablet PO SCH (09:40)
[2018-04-07] MEDS: Gabapentin 100 MG Capsule PO SCH ×3 (09:40→17:43)
--- NOTE | 2018-04-07 13:54 | P.PNCA ---
Subjective Interval history: c/o dyspnea improved with inhaler Physical Exam Vital signs: Vital Signs 04/06/18 17:54 04/06/18 22:02 04/07/18 03:40 Temperature Pulse Rate 77 77 76 Respiratory Rate 18 24 18 Blood Pressure 175/74 H Pulse Oximetry 96 04/07/18 06:00 Temperature 98.2 F Pulse Rate 81 Respiratory Rate 18 Blood Pressure 148/70 H Pulse Oximetry 96 Assessment and Plan - Plan 1.) ? ASD - continue xarelto
--- NOTE | 2018-04-07 16:48 | P.PN ---
Subjective Interval history: Follow-up visit for COPD, UTI, and possible atrial shunt. Patient is seen and examined sitting on the side of the bed in her room, appears anxious when I first introduced myself. As we begin speaking patient progressively gets more and more anxious. She continues to report "something is not right" she believes that it has to do with her medications. She believes that possibly the antibiotic for UTI as well as Zoloft could be causing these symptoms. She is unable to verbalize an exact reason behind the fact that she is not feeling right. She denies any fevers, chills, cough, shortness of breath, nausea, vomiting, diarrhea, headaches or chest pain. She reports some constipation, offered stool softeners on an as-needed basis, last BM yesterday. She reports that she does not know where she will be going home after she leaves the unit, concerns over going back to where she lives due to a broken AC. She reports that she is unable to afford duct cleaning since her AC is broken and this needs to be done. Spoke with nurse who reports patient has been anxious throughout the day. Physical Exam Vital signs: Vital Signs 04/06/18 17:54 04/06/18 22:02 04/07/18 03:40 Temperature Pulse Rate 77 77 76 Respiratory Rate 18 24 18 Blood Pressure 175/74 H Pulse Oximetry 96 04/07/18 06:00 Temperature 36.8 C Pulse Rate 81 Respiratory Rate 18 Blood Pressure 148/70 H Pulse Oximetry 96 Narrative: GENERAL: Well-nourished, well-developed adult female visibly anxious. SKIN: Warm and dry. HEAD: Atraumatic. Normocephalic. CARDIOVASCULAR: Regular rate and rhythm. RESPIRATORY: No accessory muscle use. Tammy left posterior upper lobe expiratory wheeze, rest of the lung acevedo clear. GASTROINTESTINAL: Abdomen soft, non-tender, non-distended. Positive bowel sounds. MUSCULOSKELETAL: No obvious deformities. Bilateral lower extremities with dry skin, no edema appreciated. NEUROLOGICAL: Awake and alert. No obvious cranial nerve deficits. Motor grossly within normal limits. Normal speech. Results - Labs CBC & Chem 7: 04/05/18 06:35 04/05/18 06:35 Assessment and Plan - Plan 67-year-old female who presented to the emergency room by EMS for evaluation of shortness of breath. She had previously been at [facility] and during intake she reported COPD with shortness of breath and they directed her to the emergency room. Upon arrival to the emergency room she reported anxiety and depression and was admitted to inpatient psychiatry for additional evaluation. Past medical history includes COPD, asthma, hypertension, diabetes , pulmonary embolism, peripheral artery disease with a stent in the left leg. Patient is a somewhat poor historian. Depression/ anxiety -Managed by psychiatry COPD -Albuterol, nebs, prednisone (5 day course; patient to complete course 04/08) -O2 saturations have been stable on room air, suspect that her shortness of breath could also be due to her anxiety. DVT/PE -Continue Xarelto -Rule out new PE -CTAP done 04/04 negative for PE; Doppler negative for DVT Hypertension / CHF -Continue Cardizem; increased scheduled hydralazine to 75 mg TID. -ECG ordered -sinus rhythm; BNP elevated -Echo done 04/05 EF 65-70%; possible atrial level shunt -cardiology consult placed for additional evaluation; appreciate assistance -Cardiology recommends continuing anticoagulation for the moment Edema -Bilateral leg edema resolved, discontinue Lasix for now and continue to monitor leg edema. Patient does not take Lasix at home. Diabetes - resolved -Not currently taking any medications; A1C 6.0 UTI - acute -04/04 started Keflex for 7 days -Denies any dysuria, afebrile DVT prophylaxis: Patient is on Xarelto Discussed Condition With: Discussed with patient, RN,
[2018-04-08] MEDS ORDERED: dilTIAZem CD 180 MG Capsule PO SCH (09:00)
[2018-04-08] MEDS ORDERED: dilTIAZem CD 240 MG Capsule PO SCH (10:00)
--- NOTE | 2018-04-08 10:36 | P.PNPSY ---
Subjective Remarks: Patient seen and examined with counselor, Karon. Chart reviewed. Case discussed with nursing staff. Case discussed with counselor. On my examination today, the patient presents as disheveled and malodorous. She remains quite anxious and fretful. She insists that her medications are "too much." When I try to ascertain in what sense they are too much, she only repeats again and again that they are "too much." She in particular does not like the Zoloft and wants it to be discontinued. She says that she has been on Xanax in the past. I have an extensive discussion with patient regarding pharmacotherapeutic options instead of Zoloft for anxiety, but the patient dismisses each option that I present to her. She seems quite forgetful and at the end of the interview asks again about what can be done about her anxiety. Denies SI/HI. No acute physical complaints. Vital Signs Temp Pulse Resp BP Pulse Ox 04/08/18 11:19 59 L 16 04/08/18 06:39 160/100 H 04/08/18 05:52 98.3 F 89 20 180/90 H 95 04/07/18 17:25 97.8 F 100 H 20 189/75 H 96 Nurse has rechecked blood pressure and it is 150s/70s. Labs reviewed. No new labs. Review of Systems All other systems reviewed negative except as stated in HPI Mental Status Examination Appearance: Disheveled, Malodorous Consciousness: Alert Orientation: x4 Motor Activity: Normal gait Speech: Unremarkable Language: Adequate Fund of Knowledge: Adequate Attention and Concentration: Easily distracted Memory: Impaired Mood: Anxious Affect: Anxious Thought Process & Associations: Circumstantial Thought Content: Appropriate Hallucination Type: None Delusion Type: None Suicidal Ideation: No Suicidal Plan: No Suicidal Intention: No Homicidal Ideation: No Homicidal Plan: No Homicidal Intention: No Insight: Fair Judgment: Impulsive Assessment and Plan - Assessment (1) Acute adjustment disorder with mixed anxiety and depressed mood Code(s): F43.23 - Adjustment disorder with mixed anxiety and depressed mood Status: Acute - Plan Plan: Discontinue Zoloft per patient preference. I have emphasized to the patient that anxiety may worsen if no other agent is put in its place. I will revisit options for management of this issue with her tomorrow. Continue gabapentin and Atarax as needed for anxiety. As noted above, the patient does seem quite forgetful. It is unclear to me if this is a registration problem in the setting of anxiety or if there is some degree of brittany joby underlying neurocognitive disorder. I do not think a bedside cognitive evaluation will be sufficient to differentiate between the two. I will request a neuropsychology consultation. Hospitalist input appreciated. Continue to monitor on the inpatient unit. Continue other medications and care as ordered. Justification for Continued Inpatient Stay: Risk for decompensation in less restrictive setting. Discharge Planning: Anticipate transfer to nursing facility later in the week. Counselor working on this. Request Healthcare Surrogate/Guardian Advocate?: No
--- NOTE | 2018-04-08 13:54 | P.PN ---
Subjective Interval history: Follow-up visit for COPD and hypertension. Spoke with nurse reports patient refused several medications early this morning, reluctant to take them all at one time. Patient is seen and examined in her room, still appears somewhat anxious and nervous although improved compared to yesterday. She reports that she is feeling better and less "shaky" due to the fact that she has been trying to stay off some of the medications. Discussed with patient the importance of medication compliance especially given the fact that her blood pressure is quite elevated. She denies any shortness of headache, dizziness, breath, cough , fevers, chills, nausea, vomiting, or diarrhea. Physical Exam Vital signs: Vital Signs 04/07/18 17:25 04/08/18 05:52 04/08/18 06:39 Temperature 36.6 C 36.8 C Pulse Rate 100 H 89 Respiratory Rate 20 20 Blood Pressure 189/75 H 180/90 H 160/100 H Pulse Oximetry 96 95 04/08/18 11:19 Temperature Pulse Rate 59 L Respiratory Rate 16 Blood Pressure Pulse Oximetry Narrative: GENERAL: Well-nourished, well-developed adult female visibly anxious. SKIN: Warm and dry. HEAD: Atraumatic. Normocephalic. CARDIOVASCULAR: Regular rate and rhythm. RESPIRATORY: No accessory muscle use. Tammy left upper lobe expiratory wheeze, rest of the lung acevedo diminished but clear. GASTROINTESTINAL: Abdomen soft, non-tender, non-distended. Positive bowel sounds. MUSCULOSKELETAL: No obvious deformities. Bilateral lower extremities with dry skin, no edema appreciated. NEUROLOGICAL: Awake and alert. No obvious cranial nerve deficits. Motor grossly within normal limits. Normal speech. Results - Labs CBC & Chem 7: 04/05/18 06:35 04/05/18 06:35 Assessment and Plan - Plan 67-year-old female who presented to the emergency room by EMS for evaluation of shortness of breath. She had previously been at [facility] and during intake she reported COPD with shortness of breath and they directed her to the emergency room. Upon arrival to the emergency room she reported anxiety and depression and was admitted to inpatient psychiatry for additional evaluation. Past medical history includes COPD, asthma, hypertension, diabetes , pulmonary embolism, peripheral artery disease with a stent in the left leg. Patient is a somewhat poor historian. Depression/ anxiety -Managed by psychiatry -Psychiatry adjusting medications, Zoloft D/C COPD -Albuterol, nebs, prednisone s/p 5 day course -O2 saturations have been stable on room air, suspect that her shortness of breath could also be due to her anxiety. DVT/PE -Continue Xarelto -Rule out new PE -CTAP done 04/04 negative for PE; Doppler negative for DVT Hypertension / CHF -BP continues to be elevated, Cardizem increased by refrigeration brazer/solderer, continue hydralazine to 75 mg TID. -ECG ordered -sinus rhythm; BNP elevated -Echo done 04/05 EF 65-70%; possible atrial level shunt -cardiology consult placed for additional evaluation; appreciate assistance -Cardiology recommends continuing anticoagulation for the moment Bilateral lower extremity edema, resolved -Lasix have been discontinued, continue to monitor for leg edema Diabetes - resolved -Not currently taking any medications; A1C 6.0 UTI - acute -04/04 started Keflex for 7 days -Denies any dysuria, afebrile DVT prophylaxis: Patient is on Xarelto Discussed with patient the importance of medication compliance Discussed Condition With: Discussed with patient and RN
--- NOTE | 2018-04-08 15:57 | P.PNCA ---
Subjective Interval history: alert in nad Physical Exam Vital signs: Vital Signs 04/07/18 17:25 04/08/18 05:52 04/08/18 06:39 Temperature 97.8 F 98.3 F Pulse Rate 100 H 89 Respiratory Rate 20 20 Blood Pressure 189/75 H 180/90 H 160/100 H Pulse Oximetry 96 95 04/08/18 11:19 04/08/18 15:39 Temperature Pulse Rate 59 L 59 L Respiratory Rate 16 16 Blood Pressure Pulse Oximetry Assessment and Plan - Plan 1.) ? ASD - continue xarelto 2.) HTN - increase cardizem to 240 mg qd
[2018-04-08] MEDS: hydrALAZINE 50 MG Tablet PO SCH (19:40)
[2018-04-08] MEDS: predniSONE 20 MG Tablet PO SCH (19:40)
[2018-04-08] MEDS: Famotidine 20 MG Tablet PO SCH ×2 (19:41→20:07)
[2018-04-08] MEDS: Gabapentin 100 MG Capsule PO SCH (19:41)
[2018-04-08] MEDS: Rivaroxaban 20 MG Tablet PO SCH (19:42)
[2018-04-09] MEDS: hydrALAZINE 50 MG Tablet PO SCH ×4 (05:04→17:01)
[2018-04-09] MEDS: Acetaminophen 325 MG Tablet PO PRN ×2 (09:14→16:25)
[2018-04-09] MEDS: Famotidine 20 MG Tablet PO SCH ×2 (09:17→21:04)
[2018-04-09] MEDS: Gabapentin 100 MG Capsule PO SCH ×3 (09:18→17:04)
[2018-04-09] MEDS: Rivaroxaban 20 MG Tablet PO SCH (09:18)
[2018-04-09] MEDS: amLODIPine 10 MG Tablet PO SCH (09:23)
[2018-04-09 11:03] LABS: Calcium 8.6 mg/dL (8.5-10.1); Carbon Dioxide 28.4 meq/L (21.0-32.0); Potassium 4.1 meq/L (3.5-5.1)
--- NOTE | 2018-04-09 13:49 | P.PNPSY ---
Subjective Remarks: Patient seen and examined with nurse. Chart reviewed. Case discussed with nursing staff. Patient remains somewhat oppositional and medication selective. Case discussed with counselor who reports that [facility] cannot accept the patient in the foreseeable future. She is pursuing local [facility] placement as an alternative. On my examination today, patient presents as extremely manipulative. In the first place, she is laying calmly in her room before we enter. When we enter she begins shaking in an exaggerated fashion to mimic panicky anxiety. She remains vague, I suspect intentionally, regarding any physical or psychiatric symptoms she is experiencing. She says flat out that she expects us to hold her in the hospital until she can go to [facility], even though I have explained that this is not a viable option at this point. No SI/HI. Besides chronic low back pain, no concrete medical complaints. Refuses to discuss meds to manage anxiety despite my efforts to engage her on this topic. Vital Signs Temp Pulse Resp BP Pulse Ox 04/09/18 10:35 18 04/09/18 06:30 96 H 20 170/82 H 96 04/09/18 05:27 98.5 F 87 18 200/85 H 96 04/08/18 19:41 82 20 04/08/18 18:02 97.4 F L 82 20 148/71 H 96 04/08/18 15:39 59 L 16 Intake and Output 04/08/18 04/09/18 04/09/18 22:59 06:59 14:59 Intake Total 1160 / 1160 480 / 480 Balance 1160 / 1160 480 / 480 Intake: Oral 1160 / 1160 480 / 480 Other: # Voids 3 3 Weight 77.7 kg Laboratory Results - last 24 hr 04/09/18 09:40 Sodium 142 Potassium 4.1 Chloride 106 Carbon Dioxide 28.4 Anion Gap 8 BUN 22 H Creatinine 1.05 H Estimated GFR 52 L Random Glucose 100 Calcium 8.6 Labs reviewed. Review of Systems other (Uncooperative) Mental Status Examination Appearance: Disheveled Consciousness: Alert Orientation: x4 Motor Activity: Other (Tremulous, I suspect consciously simulated. No other motor abnormalities noted.) Speech: Unremarkable Language: Adequate Fund of Knowledge: Adequate Attention and Concentration: Adequate Memory: Unremarkable Mood: Anxious Affect: Anxious Thought Process & Associations: Other (Vague) Thought Content: Appropriate Hallucination Type: None Delusion Type: None Suicidal Ideation: No Homicidal Ideation: No Insight: Fair Judgment: Impulsive Assessment and Plan - Assessment (1) Acute adjustment disorder with mixed anxiety and depressed mood Code(s): F43.23 - Adjustment disorder with mixed anxiety and depressed mood Status: Acute - Plan Plan: I am beginning to strongly suspect malingering in this patient. I believe that she wants to be housed here in the hospital until she can go to [facility], which is not an option. I suspect she is being purposely recalcitrant and vague with regards to managing the symptoms she is verbalizing and displaying in hopes that this obstructionism will extend her stay. Discussed with Dr. Kilpatrick, who will add symptom exaggeration measures when he comes to perform neuropsych testing. Continue to monitor on the inpatient unit for now. Continue other medications and care as ordered. Justification for Continued Inpatient Stay: Pending further assessment. Discharge Planning: TBD. Request Healthcare Surrogate/Guardian Advocate?: No
--- NOTE | 2018-04-09 14:17 | P.PNCA ---
Subjective Interval history: asleep in nad Physical Exam Vital signs: Vital Signs 04/08/18 15:39 04/08/18 18:02 04/08/18 19:41 Temperature 97.4 F L Pulse Rate 59 L 82 82 Respiratory Rate 16 20 20 Blood Pressure 148/71 H Pulse Oximetry 96 04/09/18 05:27 04/09/18 06:30 04/09/18 10:35 Temperature 98.5 F Pulse Rate 87 96 H Respiratory Rate 18 20 18 Blood Pressure 200/85 H 170/82 H Pulse Oximetry 96 96 Intake & Output 04/08/18 04/09/18 04/09/18 18:59 06:59 18:59 Intake Total 1160 / 1160 480 / 480 Balance 1160 / 1160 480 / 480 Weight 77.7 kg Intake: Oral 1160 / 1160 480 / 480 Other: # Voids 3 3 Assessment and Plan - Plan 1.) ? ASD - continue xarelto 2.) HTN - dc cardizem due to interaction with xarelto, start norvasc 10 mg qd
--- NOTE | 2018-04-09 15:55 | P.PN ---
Subjective Interval history: Follow-up visit for COPD, HTN, and UTI. Spoke with nurse reports patient has been quite manipulative with staff and has been complaining of an array of symptoms, suspect patient may not be wanting to leave psychiatry department. Prior to me entering the room I am able to see the patient is resting comfortably in bed, appears to be in no acute distress. As soon as I enter the room patient becomes shaky and begins hyperventilating. Reports back pain and states that she has a urinary tract infection. She also reports that she needs Coreg for her heart rate. Discussed with patient as needed Tylenol for back pain, will also recheck UA. Patient reports she does not know if she is having any dysuria, vague symptoms and states that she just "does not feel well". Today she does not mention anything regarding her respiratory status. She did report that she had a bowel movement today. Discussed with patient that her blood pressure continues to be elevated and assistant plant control operator has discontinued diltiazem and started her on Norvasc, reiterated the importance of medication compliance for BP control. When I bring up the topic over what the plan will be for her once discharge patient becomes upset and repeatedly states "do not do this to me". She reports that she does not know what she will do because of her living situations, cannot return back home. Discussed with patient that child support case officer is following and will attempt to arrange safe discharge for her. Physical Exam Vital signs: Vital Signs 04/08/18 18:02 04/08/18 19:41 04/09/18 05:27 Temperature 36.3 C L 36.9 C Pulse Rate 82 82 87 Respiratory Rate 20 20 18 Blood Pressure 148/71 H 200/85 H Pulse Oximetry 96 96 04/09/18 06:30 04/09/18 10:35 Temperature Pulse Rate 96 H Respiratory Rate 20 18 Blood Pressure 170/82 H Pulse Oximetry 96 Intake & Output 04/08/18 04/09/18 04/09/18 18:59 06:59 18:59 Intake Total 1160 / 1160 480 / 480 Balance 1160 / 1160 480 / 480 Weight 77.7 kg Intake: Oral 1160 / 1160 480 / 480 Other: # Voids 3 3 Narrative: GENERAL: Well-nourished, well-developed adult female she was. SKIN: Warm and dry. HEAD: Atraumatic. Normocephalic. CARDIOVASCULAR: Regular rate and rhythm. RESPIRATORY: No accessory muscle use. Diminished but clear throughout. GASTROINTESTINAL: Abdomen soft, non-tender, non-distended. Positive bowel sounds. MUSCULOSKELETAL: No obvious deformities. Bilateral lower extremities with dry skin, no edema appreciated. NEUROLOGICAL: Awake and alert. No obvious cranial nerve deficits. Motor grossly within normal limits. Normal speech. Results - Labs CBC & Chem 7: 04/05/18 06:35 04/09/18 09:40 Laboratory Results - last 24 hr 04/09/18 09:40 Sodium 142 Potassium 4.1 Chloride 106 Carbon Dioxide 28.4 Anion Gap 8 BUN 22 H Creatinine 1.05 H Estimated GFR 52 L Random Glucose 100 Calcium 8.6 Assessment and Plan - Plan 67-year-old female who presented to the emergency room by EMS for evaluation of shortness of breath. She had previously been at [facility] and during intake she reported COPD with shortness of breath and they directed her to the emergency room. Upon arrival to the emergency room she reported anxiety and depression and was admitted to inpatient psychiatry for additional evaluation. Past medical history includes COPD, asthma, hypertension, diabetes , pulmonary embolism, peripheral artery disease with a stent in the left leg. Patient is a somewhat poor historian. Depression/ anxiety -Managed by psychiatry -Psychiatry adjusting medications, Zoloft D/C COPD -Albuterol, nebs, prednisone s/p 5 day course -O2 saturations have been stable on room air. DVT/PE -Continue Xarelto -Rule out new PE -CTAP done 04/04 negative for PE; Doppler negative for DVT Hypertension / CHF -BP continues to be elevated, Cardizem discontinued and started on Norvasc by assistant plant control operator, continue hydralazine to 75 mg TID. -ECG -sinus rhythm; BNP elevated -Echo done 04/05 EF 65-70%; possible atrial level shunt -cardiology consult placed for additional evaluation; appreciate assistance -Cardiology recommends continuing anticoagulation for the moment -Discussed importance of medication compliance for BP control Bilateral lower extremity edema, resolved -Lasix have been discontinued, continue to monitor for leg edema Diabetes - resolved -Not currently taking any medications; A1C 6.0 UTI - acute -04/04 started Keflex for 7 days -Denies any dysuria, afebrile -Complaints of back pain, recheck UA, as needed Tylenol. Patient ambulating without difficulty. DVT prophylaxis: Patient is on Xarelto Discussed Condition With: Discussed with patient and RN
[2018-04-10 00:27] LABS: Bilirubin,Urine Negative (Negative); Clarity,Urine Clear (Clear); Color,Urine Yellow (Yellw/Straw); Glucose,Urine (UA) 50 mg/dL (Negative); Leukocyte Esterase,Urine Negative (Negative); Mucus,Urine Few /lpf (Occasional); Nitrite,Urine Negative (Negative); Specific Gravity,Urine 1.019 (1.002-1.035); Squamous Epithelial Cell,Urine 1 /hpf (0-5)
[2018-04-10] MEDS: hydrALAZINE 50 MG Tablet PO SCH ×2 (08:27→14:10)
[2018-04-10] MEDS: amLODIPine 10 MG Tablet PO SCH (08:28)
[2018-04-10] MEDS: Gabapentin 100 MG Capsule PO SCH ×2 (08:28→14:11)
[2018-04-10] MEDS: Rivaroxaban 20 MG Tablet PO SCH (08:29)
[2018-04-10] MEDS: Famotidine 20 MG Tablet PO SCH ×2 (08:32→20:33)
--- NOTE | 2018-04-10 11:43 | P.PNCA ---
Subjective Interval history: c/o dyspnea and tachycardia Physical Exam Vital signs: Vital Signs 04/09/18 19:18 04/10/18 04:58 04/10/18 06:00 Temperature 98.6 F Pulse Rate 93 H 106 H 106 H Respiratory Rate 18 20 Blood Pressure 132/60 184/74 H 146/80 H Pulse Oximetry 96 04/10/18 07:27 Temperature Pulse Rate 96 H Respiratory Rate 22 Blood Pressure Pulse Oximetry Intake & Output 04/09/18 04/10/18 04/10/18 18:59 06:59 18:59 Intake Total 340 / 340 Balance 340 / 340 Intake: Oral 240 / 240 Oral Supplement 100 / 100 Other: # Voids 2 # Bowel Movements 0 Assessment and Plan - Plan 1.) ? ASD - continue xarelto 2.) HTN - dc cardizem due to interaction with xarelto, continue norvasc 10 mg qd , add coreg 3.125 mg bid 3.) Dyspnea - consult pulmonary
--- NOTE | 2018-04-10 12:08 | P.NPEVAL ---
Disclaimer Patient was given an explanation of the nature and purpose of the evaluation. Patient agreed to proceed with the evaluation and treatment plan. History - Reason for Referral The patient is a 67 year old left handed female with a past medical history of HTN, DM, COPD, who presented to the ED on a voluntary basis on 04/04/2018 with complaints of anxiety, depression, feeling of being overwhelmed and financial stresses. She is originally from [place], been in [place] since a young age. She did not finish high school, but earned a GED. 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 She is x 1 , for many years and she has a daughter who lives in [facility], but far enough away to care for her. She has been living with her mother. She is referred for baseline neuropsychological evaluation to assess cognitive, behavioral and emotional aspects of the injury and to provide treatment recommendations. - Additional Psychosocial History Smoking Status: Never smoker Education Level: 12 Years or Less Employment Status: Retired Living Arrangement Prior to Admission: Lives With Parent Hand Dominance: Left PMFSH - History History Provided By: Patient, Medical Record - Medical History Medical History: Medical History (Last Reviewed 04/03/18 @ 18:12 by LEODAN Khoury) Anterior urethral stricture Anxiety COPD (chronic obstructive pulmonary disease) Depression Edema Hypertension Pulmonary embolism - Surgical History Surgical History: Surgical History (Last Reviewed 04/03/18 @ 18:12 by LEODAN Khoury) Hx of cholecystectomy Previous section - Tobacco History Second Hand Smoke Exposure: No Smoking Status: Never smoker Tobacco Type: Cigarettes - Alcohol History How Often Do You Have a Drink Containing Alcohol: Never - Substance Use History Substance History: Past History - Substance Use Type Alcohol Status: Sustained Remission Route Used: By Mouth Comment: she used to smoke too - Travel History Recent Travel in the [place] Within the Last 8 Weeks: No Recent Travel Out of the Country Within the Last 8 Weeks: No - Immunization History Tetanus Immunization: Unsure Hx Influenza Vaccine This Season: Yes Medications Active Medications Acetaminophen (Tylenol) 650 mg PO Q4H PRN PRN Reason: Pain 1-5 or Temp >101F Last Admin: 04/09/18 16:25 Dose: 650 mg Al Hydrox/Mg Hydrox/Simethicone (Mag-Al Plus Susp Liq) 30 ml PO Q6H PRN PRN Reason: DYSPEPSIA Al Hydroxide/Mg Hydroxide (Milk Of Magnvinay Liq) 30 ml PO Q12H PRN PRN Reason: Constipation Albuterol (Ventolin Hfa Inh) 2 puff INH Q4H PRN PRN Reason: SHORTNESS OF BREATH Last Admin: 04/10/18 07:18 Dose: 2 puff Albuterol (Duoneb Neb (Prn)) 1 ampul NEB Q4HR NEB PRN PRN Reason: SHORTNESS OF BREATH/WHEEZING Last Admin: 04/08/18 19:41 Dose: 1 ampul Amlodipine Besylate (Norvasc) 10 mg PO DAILY [facility] Last Admin: 04/10/18 08:28 Dose: 10 mg Aspirin (Aspirin Chew) 81 mg PO DAILY [facility] Last Admin: 04/10/18 08:29 Dose: 81 mg Atorvastatin Calcium (Lipitor) 40 mg PO HS [facility] Last Admin: 04/09/18 21:04 Dose: 40 mg Carvedilol (Coreg) 3.125 mg PO BID [facility] Diphenhydramine HCl (Benadryl Inj) 50 mg IM HS PRN PRN Reason: INSOMNIA Diphenhydramine HCl (Benadryl) 50 mg PO HS PRN PRN Reason: INSOMNIA Last Admin: 04/09/18 21:04 Dose: 50 mg Famotidine (Pepcid) 10 mg PO BID [facility] Last Admin: 04/10/18 08:32 Dose: 10 mg Gabapentin (Neurontin) 100 mg PO TID [facility] Last Admin: 04/10/18 08:28 Dose: 100 mg Hydralazine HCl (Apresoline) 75 mg PO TID [facility] Last Admin: 04/10/18 08:27 Dose: 75 mg Hydroxyzine HCl (Atarax) 50 mg PO Q6H PRN PRN Reason: ANXIETY Last Admin: 04/10/18 08:39 Dose: 50 mg Miscellaneous (Pill Splitter) 1 each OTHER UNSCH PRN PRN Reason: SEE LABEL COMMENTS Rivaroxaban (Xarelto) 20 mg PO DAILY [facility] Last Admin: 04/10/18 08:29 Dose: 20 mg Sodium Chloride (Ns Flush) 2 ml IV.FLUSH PRN PRN PRN Reason: FLUSH AFTER USING IV ACCESS Mental Status Assessment - Mental Status Orientation: oriented to: Self, Place, Time, Situation Mental Status: WFL: Language/interactions, Attention, Learning/memory, Visuospatial/construction, Variable: Problem-solving, Impaired: Thought processing Absent: Hallucinations, Delusions Adjustment/Coping Assessment - Adjustment/Coping Adjustment/Coping: Severe: Depression, Anxiety Affect: Full range - Observation In terms of emotional functioning, the patient demonstrated significant challenges. This patient demonstrated frequent signs of agitation, but no impulsivity or disinhibition. There was no remarkable evidence of a formal thought disorder or psychosis. There was significant evidence of depression and anxiety. The Geriatric Depression Scale-Short Form was administered given the ease to which it is administered to persons with known neurological pathology, and the patient endorsed 13 of 15 symptoms, which falls within the severely depressed range. Given the number of endorsed symptoms on the GDS-SF, there is some indication of over endorsement of symptoms. Thought content was free from suicidal, homicidal or paranoid ideation, and thought processes were tangential, preoccupied and concrete. The patients mood was dysthymic, anxious and tearful, and her affect was labile. The patient appears to possess minimal insight and awareness into their situation and within the limits of this brief evaluation, limited judgment. Effort Effort: Below average Cognition Assessment - Attention/Processing Speed Rating: WFL: Attention/processing, Language, Immediate & delayed memory, Visual perception, Spatial judgment, Impaired: Executive, Awareness - insight adjustment Observation: The patient was alert and oriented to person, place, time and circumstances surrounding the recent hospitalization. The Mini-Mental State Exam was administered, and the patient obtained a score of 30 out of 30 points, which falls in the [] range. However, on further evaluation, specific deficits were identified. In terms of attention skills, the patient exhibited normal abilities. The patient was able to remain on task and remember basic and complex verbal instructions in spite of her emotional distress. The patient was able to spell WORLD backwards, recite an adequate number of words from a serial word learning test and follow directions. In terms of memory functioning, the patient exhibited normal abilities. The patients initial registration of verbal information was normal, and the patient was able to improve their memory with repetition. After a period of delay, the patient was able to recall this information from memory. More specifically, on the [place]uria Memory Words Test- Short Form, the patients trial one performance was 5 of 7 words, trial five performance was 7 of 7 words, the patients Total Learning score was 33 (above cut-off), and the patients Delayed recall score was 7 of 7 words (above cut-off ). In terms of speech and language skills, the patient demonstrated normal abilities. The patients initiated spontaneous conversation throughout the assessment. Speech was characterized by adequate prosody, grammar, articulation , volume and rate. No remarkable dysnomic or paraphasic errors were noted either during conversational speech or on confrontation naming tasks. Reading recognition skills were adequate, as were writing skills. Her reading recognition ability fell within the superior range (percentile rank of 93). The patients comprehension for basic one- and two-stage commands was adequate. In terms of problem-solving skills, the patient exhibited challenges. The patient s ability to understand abstraction reasoning was abnormal, as she exhibited difficulties abstracting essential shared characteristics of objects and concepts. Mathematical reasoning skills were also below normal, but this was moreover due to questionable effort rather than defect. Speed of information processing, as evaluated by both the Letter and Category Fluency Tests was abnormal, again primarily due to poor effort. Finally, there was no evidence of ideomotor apraxia or constructional difficulties during this brief evaluation. Summary/Diagnosis - Summary/Impressions Summary: Neuropsychological evaluation results for this patient were relatively consistent with normal aging, with some inconsistencies due to limited effort, not possible underlying neuroanatomical compromise. She exhibited deficiencies of abstract reasoning and processing speed, but this appears moreover due to poor effort. Her learning and memory functioning was quite normal. Emotionally , she endorses significant amounts of depression, and her clinical demeanor is somewhat histrionic in terms of how she impressed upon the examiner just how depressed and anxious she was. I attempted to administer symptom validity measures to check on over endorsement of symptoms but her minimal effort precluded the administration. I even attempted to read each of the 75 questions to her, and she would have none of it. Overall diagnostic impressions include recurrent major depression, severe, and underlying Cluster B personality disorder. Recommendations Recommendations: From a neuropsychological standpoint, her cognition is sufficient to conclude she has decision making capacity. However, from a psychiatric standpoint, for which I defer to my psychiatric colleagues, she may not. Thus, I defer opinions concerning decision making to her treating psychiatrist. In terms of her ability to return to an independent living situation, in her present state, her emotional functioning appears to preclude her ability to do so. I would certainly recommend continued psychiatric evaluation and treatment in order to achieve an optimal therapeutic outcome. - Session Attendance Variance: 60 minutes
--- NOTE | 2018-04-10 12:35 | P.PN ---
Subjective Interval history: Follow-up visit for COPD, HTN, and UTI. Patient is seen resting comfortably in bed and in no acute distress, when I go in to see her she becomes visibally restless and shaking. States that her breathing is not good today. She is requesting to be placed back on Prednisone. She also states that her heart rate was acting up yesterday. She denies any cough, fevers, chill, or vomiting, denies dysuria or abdominal pain. She reports some nausea yesterday, but no vomiting. +BM with out diarrhea. She reports that she is not feeling well, but is vague about specific symptoms. Physical Exam Vital signs: Vital Signs 04/09/18 19:18 04/10/18 04:58 04/10/18 06:00 Temperature 37.0 C Pulse Rate 93 H 106 H 106 H Respiratory Rate 18 20 Blood Pressure 132/60 184/74 H 146/80 H Pulse Oximetry 96 04/10/18 07:27 04/10/18 11:53 Temperature Pulse Rate 96 H 108 H Respiratory Rate 22 18 Blood Pressure Pulse Oximetry Intake & Output 04/09/18 04/10/18 04/10/18 18:59 06:59 18:59 Intake Total 340 / 340 240 / 240 Balance 340 / 340 240 / 240 Intake: Oral 240 / 240 240 / 240 Oral Supplement 100 / 100 Other: # Voids 2 # Bowel Movements 0 Narrative: GENERAL: Well-nourished, well-developed adult female she was. SKIN: Warm and dry. HEAD: Atraumatic. Normocephalic. CARDIOVASCULAR: Regular rate and rhythm. RESPIRATORY: No accessory muscle use. Diminished but clear throughout. GASTROINTESTINAL: Abdomen soft, non-tender, non-distended. Positive bowel sounds. MUSCULOSKELETAL: No obvious deformities. Bilateral lower extremities with dry skin, no edema appreciated. NEUROLOGICAL: Awake and alert. No obvious cranial nerve deficits. Motor grossly within normal limits. Normal speech. Results - Labs CBC & Chem 7: 04/05/18 06:35 04/09/18 09:40 Laboratory Results - last 24 hr 04/09/18 23:35 Urine Color Yellow Urine Clarity Clear Urine pH 5.0 Ur Specific [place] 1.019 Urine Protein Negative Urine Glucose (UA) 50 Urine Ketones Negative Urine Occult Blood Negative Urine Nitrate Negative Urine Bilirubin Negative Urine Urobilinogen Less than 2 Ur Leukocyte Esterase Negative Urine RBC 1 Urine WBC 3 Ur Squamous Epith Cells 1 Urine Mucus Few H Micro UA Comment Culture not ind Urine Culture Comments Culture not ind Assessment and Plan - Plan 67-year-old female who presented to the emergency room by EMS for evaluation of shortness of breath. She had previously been at [facility] and during intake she reported COPD with shortness of breath and they directed her to the emergency room. Upon arrival to the emergency room she reported anxiety and depression and was admitted to inpatient psychiatry for additional evaluation. Past medical history includes COPD, asthma, hypertension, diabetes , pulmonary embolism, peripheral artery disease with a stent in the left leg. Patient is a somewhat poor historian. Depression/ anxiety -Managed by psychiatry -Psychiatry adjusting medications, Zoloft D/C COPD -Albuterol, nebs, prednisone s/p 5 day course -O2 saturations have been stable on room air. -Complaints of dyspnea, pulmonary consulted by DVT/PE -Continue Xarelto -Rule out new PE -CTAP done 04/04 negative for PE; Doppler negative for DVT Hypertension / CHF -BP still on high side, Cardizem D/C by cards. Increase in Norvasc to 10mg QD, hydralazine to 75 mg TID, cards added Coreg. -ECG -sinus rhythm; BNP elevated -Echo done 04/05 EF 65-70%; possible atrial level shunt -cardiology consult placed for additional evaluation; appreciate assistance -Cardiology recommends continuing anticoagulation for the moment Bilateral lower extremity edema, resolved -Lasix have been discontinued, continue to monitor for leg edema Diabetes - resolved -Not currently taking any medications; A1C 6.0 UTI - acute -04/04 started Keflex, denies any dysuria, afebrile -Complaints of back pain, recheck UA was negative, Keflex D/C DVT prophylaxis: Patient is on Xarelto
--- NOTE | 2018-04-10 15:41 | P.PNPSY ---
Subjective Remarks: Patient seen and examined. Chart reviewed. Case discussed with nursing staff who reports patient remains nervous and negativistic. Case discussed in treatment team. Therapists suspect malingering. On my examination today, patient once again does not display any signs of distress when surreptitiously observed. When engaged directly, however, she once again grows tremulous in a dramatic fashion. As before, she resists efforts to engage in constructive discussion of the psychiatric symptoms she may really have (perhaps some underlying anxiety or, as suggested by neuropsychologist, a cluster B personality disorder). She resists efforts to discuss medication adjustments. When I try to engage the patient in a discussion of discharge planning, emphasizing that it is not my intention to discharge her today, she endeavors to place this provider on the defensive, accusing me of "threatening" her, even though I did no such thing. Presentation remains exceedingly manipulative. Cluster B personality traits noted. No side effects from medications. No acute physical complaints. Vital Signs Temp Pulse Resp BP Pulse Ox 04/10/18 11:53 108 H 18 04/10/18 07:27 96 H 22 04/10/18 06:00 106 H 20 146/80 H 04/10/18 04:58 98.6 F 106 H 18 184/74 H 96 04/09/18 19:18 93 H 132/60 Intake and Output 04/10/18 04/10/18 04/10/18 06:59 14:59 22:59 Intake Total 240 / 240 Balance 240 / 240 Intake: Oral 240 / 240 Laboratory Results - last 24 hr 04/09/18 23:35 Urine Color Yellow Urine Clarity Clear Urine pH 5.0 Ur Specific [place] 1.019 Urine Protein Negative Urine Glucose (UA) 50 Urine Ketones Negative Urine Occult Blood Negative Urine Nitrate Negative Urine Bilirubin Negative Urine Urobilinogen Less than 2 Ur Leukocyte Esterase Negative Urine RBC 1 Urine WBC 3 Ur Squamous Epith Cells 1 Urine Mucus Few H Micro UA Comment Culture not ind Urine Culture Comments Culture not ind Labs reviewed. Review of Systems All other systems reviewed negative except as stated in HPI Mental Status Examination Appearance: Disheveled Consciousness: Alert Orientation: x4 Motor Activity: Other (Tremulous, I again suspect consciously simulated. No other motor abnormalities noted.) Speech: Unremarkable Language: Adequate Fund of Knowledge: Adequate Attention and Concentration: Adequate Memory: Unremarkable Mood: Anxious Affect: Anxious Thought Process & Associations: Other (Remains vague) Thought Content: Appropriate Hallucination Type: None Delusion Type: None Suicidal Ideation: No Homicidal Ideation: No Insight: Fair Judgment: Poor Assessment and Plan - Assessment (1) Adjustment disorder with anxiety Code(s): F43.22 - Adjustment disorder with anxiety Status: Acute (2) Mixed personality disorder Code(s): F60.89 - Other specific personality disorders Status: Suspected (3) Malingering Code(s): Z76.5 - Malingerer [conscious simulation] Status: Suspected - Plan Plan: Titrate gabapentin to help manage anxiety. Patient has been exceedingly resistant to any other medication change suggestions. Seam Taper Machine input noted and appreciated. Continue other medications and care as ordered. Justification for Continued Inpatient Stay: Medication change. Discharge Planning: Plan is for discharge Friday to . I think there is a high likelihood that the patient will sabotage this discharge because she wants to remain on the inpatient unit until she can be transferred to nursing facility where her mother resides (which is not feasible for the foreseeable future). In this case , we will discharge into [id number]'s care as per counselor's arrangements. Request Healthcare Surrogate/Guardian Advocate?: No
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
[2018-04-10] MEDS: Budesonide-Formoterol 160/4.5 MCG 6 GM Inhaler INH SCH (21:17)
[2018-04-11] MEDS ORDERED: Carvedilol 6.25 MG Tablet PO SCH (09:00)
[2018-04-11] MEDS: amLODIPine 10 MG Tablet PO SCH (09:03)
[2018-04-11] MEDS: Gabapentin 100 MG Capsule PO SCH ×4 (09:04→17:30)
[2018-04-11] MEDS: Rivaroxaban 20 MG Tablet PO SCH (09:04)
[2018-04-11] MEDS: Famotidine 20 MG Tablet PO SCH ×2 (09:04→20:55)
[2018-04-11] MEDS: hydrALAZINE 50 MG Tablet PO SCH ×3 (09:05→17:34)
[2018-04-11] MEDS: hydroCHLOROthiazide 25 MG Tablet PO SCH ×2 (09:07→17:35)
[2018-04-11] MEDS: Budesonide-Formoterol 160/4.5 MCG 6 GM Inhaler INH SCH ×2 (09:09→20:56)
--- NOTE | 2018-04-11 11:37 | P.PNCA ---
Subjective Interval history: alert in nad, appears more comfortable and less anxious Physical Exam Vital signs: Vital Signs 04/10/18 11:53 04/10/18 16:23 04/10/18 20:45 Temperature Pulse Rate 108 H 115 H 88 Respiratory Rate 18 24 18 Blood Pressure Pulse Oximetry 04/11/18 05:46 Temperature 98.7 F Pulse Rate 85 Respiratory Rate 18 Blood Pressure 177/74 H Pulse Oximetry 96 Intake & Output 04/10/18 04/11/18 04/11/18 18:59 06:59 18:59 Intake Total 820 / 820 Balance 820 / 820 Intake: Oral 820 / 820 Assessment and Plan - Plan 1.) ? ASD - continue xarelto 2.) HTN - dc cardizem due to interaction with xarelto, continue norvasc 10 mg qd , increase coreg 6.25 mg bid 3.) Dyspnea - Dr Schwartz following
--- NOTE | 2018-04-11 12:17 | P.PNPSY ---
Subjective Remarks: Patient was seen and case discussed with nursing. Patient remains guarded and defensive during the interview. Affect remains quite irritable and anxious. She is compliant with her medications and largely seclusive to self Mental Status Examination Appearance: Disheveled Consciousness: Alert Orientation: x4 Motor Activity: Other (Tremulous, I again suspect consciously simulated. No other motor abnormalities noted.) Speech: Unremarkable Language: Adequate Fund of Knowledge: Adequate Attention and Concentration: Adequate Memory: Unremarkable Mood: Anxious Affect: Anxious Thought Process & Associations: Other (Remains vague) Thought Content: Appropriate Hallucination Type: None Delusion Type: None Suicidal Ideation: No Suicidal Plan: No Suicidal Intention: No Homicidal Ideation: No Homicidal Plan: No Homicidal Intention: No Insight: Fair Judgment: Poor Assessment and Plan - Assessment (1) Adjustment disorder with anxiety Code(s): F43.22 - Adjustment disorder with anxiety Status: Acute (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
--- NOTE | 2018-04-11 15:44 | P.PN ---
Subjective Interval history: Follow-up visit for COPD, HTN, and UTI. Spoke with nurse who reports patient has been doing better today. She is seen and examined sitting in the morfin by her room, appears much more calm today even after I asked her how she is doing. Denies any fevers, chills, nausea, vomiting, diarrhea, cough, shortness of breath, chest pain or dysuria. Was recently started on Symbicort by pulmonary physician, feels as if this is helping. We discussed mildly elevated BP which is ongoing, added hydrochlorothiazide for better BP control. Patient reports that case management has talked to her and may possibly be going to [facility] on Friday. She is concerned that she still needs to make arrangements to obtain her belongings from her mother's house. Physical Exam Vital signs: Vital Signs 04/10/18 16:23 04/10/18 20:45 04/11/18 05:46 Temperature 37.1 C Pulse Rate 115 H 88 85 Respiratory Rate 24 18 Blood Pressure 177/74 H Pulse Oximetry 96 04/11/18 11:50 Temperature Pulse Rate 88 Respiratory Rate 14 Blood Pressure Pulse Oximetry Intake & Output 04/10/18 04/11/18 04/11/18 18:59 06:59 18:59 Intake Total 820 / 820 Balance 820 / 820 Intake: Oral 820 / 820 Narrative: GENERAL: Well-nourished, well-developed adult female she was. SKIN: Warm and dry. HEAD: Atraumatic. Normocephalic. CARDIOVASCULAR: Regular rate and rhythm. RESPIRATORY: No accessory muscle use. Diminished but clear throughout. GASTROINTESTINAL: Abdomen soft, non-tender, non-distended. Positive bowel sounds. MUSCULOSKELETAL: No obvious deformities. Bilateral lower extremities with dry skin, no edema appreciated. NEUROLOGICAL: Awake and alert. No obvious cranial nerve deficits. Motor grossly within normal limits. Normal speech. Results - Labs CBC & Chem 7: 04/05/18 06:35 04/09/18 09:40 Assessment and Plan - Plan 67-year-old female who presented to the emergency room by EMS for evaluation of shortness of breath. She had previously been at [facility] and during intake she reported COPD with shortness of breath and they directed her to the emergency room. Upon arrival to the emergency room she reported anxiety and depression and was admitted to inpatient psychiatry for additional evaluation. Past medical history includes COPD, asthma, hypertension, diabetes , pulmonary embolism, peripheral artery disease with a stent in the left leg. Patient is a somewhat poor historian. Depression/ anxiety -Managed by psychiatry -Appears, today COPD -Albuterol, nebs, prednisone s/p 5 day course -O2 saturations have been stable on room air. -Dr. Schwartz has restarted patient Symbicort, can continue as needed breathing treatments DVT/PE -Continue Xarelto -Rule out new PE -CTAP done 04/04 negative for PE; Doppler negative for DVT Hypertension / CHF -BP still on high side, Cardizem D/C by cards. Currently on Norvasc to 10mg QD , hydralazine to 75 mg TID, and Coreg 3.125 -BP still on the higher side, add hydrochlorothiazide and Coreg increased by cardiology -ECG -sinus rhythm; BNP elevated -Echo done 04/05 EF 65-70%; possible atrial level shunt -cardiology consult placed for additional evaluation; appreciate assistance -Cardiology recommends continuing anticoagulation for the moment Bilateral lower extremity edema, resolved -Lasix have been discontinued, continue to monitor for leg edema Diabetes - resolved -Not currently taking any medications; A1C 6.0 UTI - acute -04/04 started Keflex, denies any dysuria, afebrile -Complaints of back pain, recheck UA was negative, Keflex D/C DVT prophylaxis: Patient is on Xarelto Discussed Condition With: Patient, RN, Discharge Planning: Case management has made arrangements for patient to be discharged to [facility] on Friday. If for some reason something comes up or she is not able to be discharged to [facility], arrangements have already been made for patient to be discharged with [id number]. I anticipate patient's blood pressure to stabilize with increase in Coreg as well as addition of hydrochlorothiazide, will continue to observe this but most likely should be able to be discharged and follow-up with PCP.
--- NOTE | 2018-04-11 17:05 | MB ---
cc: Oleg Schwartz MD DATE: 04/11/2018 FOLLOWUP PULMONARY CONSULTATION HISTORY OF PRESENT ILLNESS: Ms. Hernández presented with acute anxiety and was hospitalized in psychiatry several days ago and was consistently short of breath. She was seen by cardiology who recommended I see her because she had a [id number] smoking history, although she quit smoking 5 years ago. When I saw her yesterday, she was breathing rapidly, appeared to be hyperventilating, but was extremely anxious and tremulous. She had been on Symbicort at home, so I resumed that yesterday and I scaled her respiratory treatments back to p.r.n. When I found her today, she was out with the other patients conversing, obviously much less anxious, no longer tremulous, and her lungs were clear. The patient will be continued on her Symbicort. I did explain to her that she does not have to use the nebulizer every 4 hours, which is what she has been accustomed to at home, particularly in light of her severe anxiety which is probably contributing to this. She also complained of palpitations which could have been complicated by over utilization of this medicine. She is clinically stable. I will not see her routinely, but I would suggest continuing on the Symbicort and only p.r.n. aerosol treatments. Oleg Schwartz MD RSW/lh , 04:47 PM , 04:54 PM
[2018-04-11] MEDS: Carvedilol 6.25 MG Tablet PO SCH (20:56)
[2018-04-12] MEDS: Acetaminophen 325 MG Tablet PO PRN ×2 (03:33→18:39)
[2018-04-12] MEDS: Budesonide-Formoterol 160/4.5 MCG 6 GM Inhaler INH SCH ×2 (08:54→20:58)
[2018-04-12] MEDS: Famotidine 20 MG Tablet PO SCH ×2 (08:54→20:56)
[2018-04-12] MEDS: Gabapentin 100 MG Capsule PO SCH ×3 (08:55→18:42)
[2018-04-12] MEDS: amLODIPine 10 MG Tablet PO SCH (08:55)
[2018-04-12] MEDS: hydrALAZINE 50 MG Tablet PO SCH ×3 (08:56→18:34)
[2018-04-12] MEDS: Carvedilol 6.25 MG Tablet PO SCH ×2 (09:07→20:56)
[2018-04-12] MEDS: hydroCHLOROthiazide 25 MG Tablet PO SCH ×2 (09:07→18:41)
[2018-04-12] MEDS: Rivaroxaban 20 MG Tablet PO SCH (09:39)
--- NOTE | 2018-04-12 11:19 | P.PN ---
Subjective Interval history: Follow-up visit for COPD and hypertension. Nurse reports no acute events overnight or this morning. Patient seen and examined in the day room, appears to be in no acute distress. BP has improved, plans for possible discharge tomorrow to facility. Patient denies any headache or dizziness. Physical Exam Vital signs: Vital Signs 04/11/18 11:50 04/11/18 17:56 04/11/18 18:32 Temperature 36.7 C Pulse Rate 88 88 75 Respiratory Rate 14 20 14 Blood Pressure 130/80 Pulse Oximetry 94 L 04/12/18 04:30 04/12/18 06:15 Temperature 36.8 C Pulse Rate 70 Respiratory Rate 16 16 Blood Pressure 150/84 H Pulse Oximetry 96 Intake & Output 04/11/18 04/12/18 04/12/18 18:59 06:59 18:59 Intake Total 0 / 0 Balance 0 / 0 Intake: Oral 0 / 0 Other: # Voids 3 Narrative: GENERAL: Well-nourished, well-developed adult female sitting up in chair. CARDIOVASCULAR: Regular rate and rhythm. RESPIRATORY: No accessory muscle use. Diminished but clear throughout. GASTROINTESTINAL: Abdomen soft, non-tender, non-distended. Positive bowel sounds. MUSCULOSKELETAL: No obvious deformities. Bilateral lower extremities with dry skin, no edema appreciated. NEUROLOGICAL: Awake and alert. No obvious cranial nerve deficits. Motor grossly within normal limits. Normal speech. Results - Labs CBC & Chem 7: 04/05/18 06:35 04/09/18 09:40 Assessment and Plan - Plan 67-year-old female who presented to the emergency room by EMS for evaluation of shortness of breath. She had previously been at [facility] and during intake she reported COPD with shortness of breath and they directed her to the emergency room. Upon arrival to the emergency room she reported anxiety and depression and was admitted to inpatient psychiatry for additional evaluation. Past medical history includes COPD, asthma, hypertension, diabetes , pulmonary embolism, peripheral artery disease with a stent in the left leg. Patient is a somewhat poor historian. Depression/ anxiety -Managed by psychiatry -Appears, today COPD -Albuterol, nebs, prednisone s/p 5 day course -O2 saturations have been stable on room air. -Dr. Schwartz has restarted patient Symbicort, can continue as needed breathing treatments -Breathing appears stable at the moment. DVT/PE -Continue Xarelto -Rule out new PE -CTAP done 04/04 negative for PE; Doppler negative for DVT Hypertension / CHF -Cardizem D/C by cards. Currently on Norvasc to 10mg QD, hydralazine to 75 mg TID, and Coreg 6.25 -BP improved -ECG -sinus rhythm; BNP elevated -Echo done 04/05 EF 65-70%; possible atrial level shunt -cardiology consult placed for additional evaluation; appreciate assistance -Cardiology recommends continuing anticoagulation for the moment Bilateral lower extremity edema, resolved -Lasix have been discontinued, continue to monitor for leg edema Diabetes - resolved -Not currently taking any medications; A1C 6.0 UTI - acute -04/04 started Keflex, denies any dysuria, afebrile -Complaints of back pain, recheck UA was negative, Keflex D/C DVT prophylaxis: Patient is on Xarelto Discussed Condition With: Patient and RN. Discharge Planning: Case management has made arrangements for patient to be discharged to [facility] on Friday. If for some reason something comes up or she is not able to be discharged to [facility], arrangements have already been made for patient to be discharged with [id number]. Patient's blood pressure has improved. Cleared medically for discharge.
--- NOTE | 2018-04-12 12:23 | P.PNPSY ---
Subjective Remarks: Patient was seen and case discussed with nursing. Medicine has now signed off on her case. We continue to believe there is a suspicion of malingering. Patient appears to be more anxious during the conversations. She is irritable during the interview. Guarded and defensive and vague. She does deny suicidal or homicidal ideation intent or plan at this time Mental Status Examination Appearance: Dirty, Disheveled Consciousness: Alert Orientation: x4 Motor Activity: Other (Tremulous, I again suspect consciously simulated. No other motor abnormalities noted.) Speech: Unremarkable Language: Adequate Fund of Knowledge: Adequate Attention and Concentration: Adequate Memory: Unremarkable Mood: Anxious Affect: Anxious Thought Process & Associations: Other (Remains vague) Thought Content: Appropriate Hallucination Type: None Delusion Type: None Suicidal Ideation: No Suicidal Plan: No Suicidal Intention: No Homicidal Ideation: No Homicidal Plan: No Homicidal Intention: No Insight: Fair Judgment: Poor Assessment and Plan - Assessment (1) Adjustment disorder with anxiety Code(s): F43.22 - Adjustment disorder with anxiety Status: Acute (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
--- NOTE | 2018-04-12 13:16 | P.PNCA ---
Subjective Interval history: alert in nad Physical Exam Vital signs: Vital Signs 04/11/18 17:56 04/11/18 18:32 04/12/18 04:30 Temperature 98.0 F Pulse Rate 88 75 Respiratory Rate 20 14 16 Blood Pressure 130/80 Pulse Oximetry 94 L 04/12/18 06:15 Temperature 98.2 F Pulse Rate 70 Respiratory Rate 16 Blood Pressure 150/84 H Pulse Oximetry 96 Intake & Output 04/11/18 04/12/18 04/12/18 18:59 06:59 18:59 Intake Total 0 / 0 Balance 0 / 0 Intake: Oral 0 / 0 Other: # Voids 3 Assessment and Plan - Plan 1.) ? ASD - continue xarelto 2.) HTN - dc cardizem due to interaction with xarelto, continue norvasc 10 mg qd , coreg 6.25 mg bid, bp and hr improved 3.) Dyspnea - Dr Schwartz following, dyspnea improved on simbicort
[2018-04-13] MEDS: Acetaminophen 325 MG Tablet PO PRN ×2 (00:59→09:03)
[2018-04-13] MEDS: Budesonide-Formoterol 160/4.5 MCG 6 GM Inhaler INH SCH (09:01)
[2018-04-13] MEDS: Gabapentin 100 MG Capsule PO SCH ×3 (09:02→15:11)
[2018-04-13] MEDS: hydrALAZINE 50 MG Tablet PO SCH ×2 (09:02→15:13)
[2018-04-13] MEDS: Rivaroxaban 20 MG Tablet PO SCH (09:02)
[2018-04-13] MEDS: Famotidine 20 MG Tablet PO SCH (09:02)
[2018-04-13] MEDS: hydroCHLOROthiazide 25 MG Tablet PO SCH (09:02)
[2018-04-13] MEDS: amLODIPine 10 MG Tablet PO SCH (09:02)
[2018-04-13] MEDS: Carvedilol 6.25 MG Tablet PO SCH (09:03)
--- NOTE | 2018-04-13 14:38 | P.PNCA ---
Subjective Interval history: alert in nad Physical Exam Vital signs: Vital Signs 04/12/18 18:17 04/13/18 02:00 04/13/18 06:00 Temperature 98.1 F 97.8 F Pulse Rate 85 74 Respiratory Rate 18 18 18 Blood Pressure 156/69 H 166/74 H Pulse Oximetry 97 97 04/13/18 06:45 04/13/18 13:18 Temperature Pulse Rate 78 84 Respiratory Rate 20 19 Blood Pressure Pulse Oximetry Intake & Output 04/12/18 04/13/18 04/13/18 18:59 06:59 18:59 Intake Total 1080 / 1080 0 / 0 Balance 1080 / 1080 0 / 0 Weight 76.9 kg Intake: Oral 1080 / 1080 0 / 0 Other: # Voids 3 2 Assessment and Plan - Plan 1.) ? ASD - continue xarelto 2.) HTN - dc cardizem due to interaction with xarelto, continue norvasc 10 mg qd , increase coreg 12.5 mg bid, bp and hr improved 3.) Dyspnea - Dr Schwartz following, dyspnea improved on simbicort
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
[2018-04-13] MEDS ORDERED: Carvedilol 12.5 MG Tablet PO SCH (21:00)
== END 2018-04-13 16:50 ==
LOC: NEPE 17:34 → NEDA 04-04 00:22 → H260 04-04 01:33
PROVIDERS: ADMIT Psychiatry & Neurology Psychiatry; ATTEND Psychiatry & Neurology Psychiatry

== ENCOUNTER 2018-05-20 02:05 | Inpatient (IN) ==
[2018-05-20] MEDS ORDERED: Sod Chloride 0.9% Inj 1,000 ML IV.SIG ONE (02:10)
[2018-05-20] MEDS ORDERED: fentaNYL Citrate Inj 100 MCG/2 ML Ampul IV.PUSH ONE (02:10)
[2018-05-20 02:25] LABS: Baso % (Auto) 0.2 % (0.0-2.0); Eos % (Auto) 0.1 % (0.0-4.0); Hematocrit 30.4 % (35.0-46.0); Hemoglobin 9.4 gm/dL (11.6-15.3); Lymph # (Auto) 0.6 th/mm3 (1.0-4.8); Lymph % (Auto) 3.3 % (9.0-44.0); Mean Corpuscular Hemoglobin 25.9 pg (27.0-34.0); Mean Corpuscular Volume 84.3 fL (80.0-100.0); Mean Platelet Volume 7.6 fL (7.0-11.0); Mono # (Auto) 0.6 th/mm3 (0.0-0.9); Mono % (Auto) 3.7 % (0.0-8.0); Neut # (Auto) 16.1 th/mm3 (1.8-7.7); Neut % (Auto) 92.7 % (16.0-70.0); Platelet Count 326 th/mm3 (150-450); Red Blood Count 3.61 mil/mm3 (4.00-5.30); Red Cell Distribution Width 18.6 % (11.6-17.2); White Blood Count 17.4 th/mm3 (4.0-11.0)
[2018-05-20] MEDS ORDERED: Pantoprazole Inj 40 MG Vial IV.PUSH ONE (02:30)
[2018-05-20 02:31] LABS: Mean Corpuscular HGB Conc 30.7 % (32.0-36.0)
--- NOTE | 2018-05-20 02:34 | XR ---
EXAM DATE: 05/20/2018 2:32 AM EDT AGE/SEX: 68 years / Female INDICATIONS: Evaluate for free air under the diaphragm. CLINICAL DATA: This is the patient's initial encounter. Patient reports that signs and symptoms have been present for 1 day and indicates a pain score of Nonresponsive. MEDICAL/SURGICAL HISTORY: Non-responsive. Non-responsive. COMPARISON: [facility] [place], CHEST 1V SINGLE AP, 04/03/2018. . FINDINGS: A single AP view of the chest demonstrates the lungs to be symmetrically aerated without evidence of mass, infiltrate or effusion. The cardiomediastinal contours are unremarkable. Osseous structures a re intact. CONCLUSION: Negative examination. Electronically signed by: Brando Laureano MD 05/20/2018 2:33 AM EDT
[2018-05-20] MEDS ORDERED: Vancomycin Inj 1,500 MG in Sodium Chlor 0.9% Inj 500 ML IV.SIG STA (02:35)
[2018-05-20] MEDS ORDERED: Piperacil/Tazo 4.5 GM Premix 4.5 GM/100 ML BAG IV.SIG STA (02:35)
--- NOTE | 2018-05-20 02:35 | XR ---
EXAM DATE: 05/20/2018 2:33 AM EDT AGE/SEX: 68 years / Female INDICATIONS: Blood in stool. CLINICAL DATA: This is the patient's initial encounter. Patient reports that signs and symptoms have been present for 1 day and indicates a pain score of 0/10. MEDICAL/SURGICAL HISTORY: Non-responsive. Abdominal aortic aneurysm repair. COMPARISON: No prior exams available for comparison. FINDINGS: The abdominal bowel gas pattern is normal. No abnormal masses, calcifications, or organomegaly is s een. The osseous structures are unremarkable. CONCLUSION: Nonspecific, benign abdomen appearance. Electronically signed by: Brando Laureano MD 05/20/2018 2:34 AM EDT
[2018-05-20 02:44] LABS: Activated Partial Thrombo Time 27.6 sec (24.3-30.1); INR 1.3 Ratio; Prothrombin Time 13.6 sec (9.8-11.6)
[2018-05-20 02:52] LABS: Alanine Aminotransferase 25 U/L (10-53); Albumin 2.9 g/dL (3.4-5.0); Anion Gap 7 meq/L (5-15); Aspartate Aminotransferase 22 U/L (15-37); Blood Urea Nitrogen 41 mg/dL (7-18); Calcium 8.5 mg/dL (8.5-10.1); Chloride 103 meq/L (98-107); Glomerular Filtration Rate 22 mL/min (>89); Glucose,Random 198 mg/dL (74-106); Lipase 573 U/L (73-393); Potassium 4.5 meq/L (3.5-5.1); Sodium 140 meq/L (136-145)
[2018-05-20 02:56] LABS: Alkaline Phosphatase 111 U/L (45-117)
--- NOTE | 2018-05-20 02:59 | ED ---
HPI General Chief complaint: GI Bleed Stated complaint: poss gi bleed Time Seen by Provider: 05/20/18 02:10 Source: patient and EMS Mode of arrival: EMS Limitations: altered mental status History of Present Illness HPI Narrative: Patient is a 68-year-old female, past medical history significant for COPD, PE, on blood thinners, who presents with complaint of GI bleed. EMS states that they were called to the snf for respiratory distress. On their arrival they state that she was not in respiratory distress but she was hypotensive with a systolic blood pressure in the 60s and delayed cap refill. Blood sugar was within normal limits. They noted dark bloody stools. They were able to secure an IV and route did give her about 350 cc of fluids prior to arrival. Her last blood pressure prior to arrival was in the 110s systolic. Patient was able to say that her abdomen hurts but is not answering too many more questions, she denied chest pain, shortness of breath. MD complaint: gross hematochezia Onset (ago): unknown Pain Consistency: constant Severity: moderate Context: anticoagulant use Associated symptoms: abdominal pain Related Data Home Medications Medication Instructions Recorded Confirmed acetaminophen [Tylenol Extra 500 mg PO Q4H PRN 05/20/18 05/20/18 Strength] alprazolam [Xanax] 0.5 mg PO BID PRN 05/20/18 05/20/18 amlodipine [Norvasc] 10 mg PO DAILY 05/20/18 05/20/18 ammonium lactate 1 applic TOPICAL DAILY 05/20/18 05/20/18 aspirin [Aspir-Low] 81 mg PO DAILY 05/20/18 05/20/18 atorvastatin 40 mg PO DAILY 05/20/18 05/20/18 budesonide-formoterol [Symbicort] 2 puff INHALATION BID 05/20/18 05/20/18 captopril-hydrochlorothiazide 1 tab PO BID 05/20/18 05/20/18 carvedilol [Coreg] 12.5 mg PO BID 05/20/18 05/20/18 ciprofloxacin HCl [Cipro] 500 mg PO BID 05/20/18 05/20/18 gabapentin 100 mg PO TID 05/20/18 05/20/18 hydralazine 75 mg PO TID 05/20/18 05/20/18 ibuprofen 5 mg/kg PO Q6-8H PRN 05/20/18 05/20/18 ipratropium-albuterol 3 ml INHALATION QID 05/20/18 05/20/18 melatonin 3 mg PO HS PRN 05/20/18 05/20/18 omeprazole magnesium [Prilosec OTC] 20 mg PO DAILY 05/20/18 05/20/18 prednisone 5 mg PO DAILY 05/20/18 05/20/18 ranitidine HCl 150 mg PO DAILY 05/20/18 05/20/18 rivaroxaban [Xarelto] 20 mg PO DAILY 05/20/18 05/20/18 trazodone 50 mg PO DAILY 05/20/18 05/20/18 Allergies Allergy/AdvReac Type Severity Reaction Status Date / Time No Known Allergies Allergy Verified 05/20/18 02:09 Review of Systems ROS Unobtainable ROS Unobtainable: unobtainable due to mental condition PMFSH Medical History Medical History Anterior urethral stricture (Acute) Anxiety (Acute) COPD (chronic obstructive pulmonary disease) (Acute) Depression (Acute) Edema (Acute) Hypertension (Acute) Pulmonary embolism (Acute) Surgical History Surgical History Hx of cholecystectomy (Acute) Previous section (Acute) Social History Social History Substance History: No History of Abuse Second Hand Smoke Exposure: No Smoking Status: Unknown if ever smoked Tobacco Type: Cigarettes How Often Do You Have a Drink Containing Alcohol: Never Recent Travel in [facility] within the Last 8 Weeks: No Recent Out of Country Travel within the Last 8 Weeks: No Immunization History Tetanus Immunization: Unsure Hx Influenza Vaccine This Season: Yes Exam Narrative Exam Narrative: GENERAL: Ill-appearing female, tired but easily arousable SKIN: Focused skin assessment cool and dry. HEAD: Atraumatic. Normocephalic. EYES: Pupils equal and round. No scleral icterus. No injection or drainage. ENT: No nasal bleeding or discharge. Mucous membranes pink and moist. NECK: Trachea midline. No JVD. CARDIOVASCULAR: Regular rate and rhythm. No murmur appreciated. Intact and equal peripheral pulses. RESPIRATORY: No accessory muscle use. Clear to auscultation. Breath sounds equal bilaterally. GASTROINTESTINAL: Abdomen soft. Tenderness present throughout. Abdomen distended. No pulsatile abdominal mass. : (done with EMILY Kong present) Dark stool with gross hematochezia. Guaiac positive. MUSCULOSKELETAL: No obvious deformities. No clubbing. No cyanosis. No edema. NEUROLOGICAL: Intermittently asleep but easily arousable. No obvious cranial nerve deficits. Generalized weakness. PSYCHIATRIC: Unable to assess Course Initial Documented Vital Signs Pulse Rate 86 05/20/18 02:09 Respiratory Rate 24 05/20/18 02:09 Blood Pressure 160/67 H 05/20/18 02:09 Pulse Oximetry 92 L 05/20/18 02:09 Last Documented Vital Signs Temperature 98.9 F 05/20/18 02:13 Pulse Rate 71 05/20/18 03:24 Respiratory Rate 18 05/20/18 03:24 Blood Pressure 115/51 L 05/20/18 03:24 Pulse Oximetry 95 05/20/18 03:24 Medical Decision Making MDM Narrative Medical decision making narrative: Patient is a 68-year-old female who presented with complaint of abdominal pain, rectal bleeding, lethargy. She is asleep but easily arousable on exam. Initial blood pressure on arrival here was within normal limits. Bedside ultrasound did not reveal a AAA. Portable chest and abdominal x-rays did not reveal free air under the diaphragm. Labs revealed leukocytosis (for which she has been given zosyn and vancomycin for presumed intraabdominal infection) and STEPHIE. CT showed proctitis and impaction. Stool was not easily palpated on rectal exam (and patient is having copious stool), thus suppository has been given. She has been admitted to the hospitalist, Dr Jeffries for her STEPHIE and hematochezia on blood thinners. Medical Screen Exam Complete: Yes Emergency Medical Condition: Yes Differential Diagnosis Differential Diagnosis: Differential diagnosis includes but is not limited to diverticulitis, diverticulosis, AAA, perforated viscus, pancreatitis, volvulus. Medical Records Medical records reviewed: Yes I reviewed the patient's medical records. Lab Data Result diagrams: 05/20/18 02:20 05/20/18 02:15 Lab Results 05/20/18 05/20/18 05/20/18 Range/Units 02:15 02:15 02:15 WBC (4.0-11.0) th/mm3 RBC (4.00-5.30) mil/mm3 Hgb (11.6-15.3) gm/dL POC Hgb (Calc) (11.6-15.3) g/dL Hct (35.0-46.0) % POC Hct (35-46.0) % MCV (80.0-100.0) fL MCH (27.0-34.0) pg MCHC (32.0-36.0) % RDW (11.6-17.2) % Plt Count (150-450) th/mm3 MPV (7.0-11.0) fL Neut % (Auto) (16.0-70.0) % Lymph % (Auto) (9.0-44.0) % Mitchell % (Auto) (0.0-8.0) % Eos % (Auto) (0.0-4.0) % Baso % (Auto) (0.0-2.0) % Neut # (Auto) (1.8-7.7) th/mm3 Lymph # (Auto) (1.0-4.8) th/mm3 Mitchell # (Auto) (0.0-0.9) th/mm3 Eos # (Auto) (0.0-0.4) th/mm3 Baso # (Auto) (0.0-0.2) th/mm3 WBC Differential Differential Comment PT (9.8-11.6) sec INR Ratio APTT (24.3-30.1) sec POC Sodium (137-144) mmol/L Sodium 140 (136-145) meq/L POC Potassium (3.6-5.0) mmol/L Potassium 4.5 (3.5-5.1) meq/L POC Chloride (102-111) mmol/L Chloride 103 (98-107) meq/L Carbon Dioxide 30.0 (21.0-32.0) meq/L Anion Gap 7 (5-15) meq/L POC BUN (5-21) mg/dL BUN 41 H (7-18) mg/dL Creatinine 2.25 H (0.50-1.00) mg/dL POC Creatinine (0.6-1.3) mg/dL Estimated GFR 22 L (>89) mL/min POC Glucose (68-110) mg/dL Random Glucose 198 H (74-106) mg/dL Lactic Acid (0.4-2.0) mmol/L Calcium 8.5 (8.5-10.1) mg/dL Total Bilirubin 0.6 (0.2-1.0) mg/dL AST 22 (15-37) U/L ALT 25 (10-53) U/L Alkaline Phosphatase 111 (45-117) U/L Troponin I Less than 0.02 L (0.02-0.05) ng/mL Total Protein 6.0 L (6.4-8.2) g/dL Albumin 2.9 L (3.4-5.0) g/dL Lipase 573 H (73-393) U/L Urine Color (Yellw/Straw) Urine Clarity (Clear) Urine pH (5.0-8.5) Ur Specific [place] (1.002-1.035) Urine Protein (Neg-Trace) mg/dL Urine Glucose (UA) (Negative) mg/dL Urine Ketones (Negative) mg/dL Urine Occult Blood (Negative) Urine Nitrate (Negative) Urine Bilirubin (Negative) Urine Urobilinogen (Less than 2) mg/dL Ur Leukocyte Esterase (Negative) Urine RBC (0-3) /hpf Urine WBC (0-5) /hpf Urine Mucus (Occasional) /lpf Micro UA Comment Ur Microscopic Review Urine Culture Comments Blood Type A Positive Blood Type Recheck Required Antibody Screen Positive H Antibody Identification Anti-E Antigen Identification E Antigen - NEGATIVE MTS Gel Crossmatch See Detail 05/20/18 05/20/18 05/20/18 Range/Units 02:20 02:20 02:20 WBC 17.4 H (4.0-11.0) th/mm3 RBC 3.61 L (4.00-5.30) mil/mm3 Hgb 9.4 L (11.6-15.3) gm/dL POC Hgb (Calc) (11.6-15.3) g/dL Hct 30.4 L (35.0-46.0) % POC Hct (35-46.0) % MCV 84.3 (80.0-100.0) fL MCH 25.9 L (27.0-34.0) pg MCHC 30.7 L (32.0-36.0) % RDW 18.6 H (11.6-17.2) % Plt Count 326 (150-450) th/mm3 MPV 7.6 (7.0-11.0) fL Neut % (Auto) 92.7 H (16.0-70.0) % Lymph % (Auto) 3.3 L (9.0-44.0) % Mitchell % (Auto) 3.7 (0.0-8.0) % Eos % (Auto) 0.1 (0.0-4.0) % Baso % (Auto) 0.2 (0.0-2.0) % Neut # (Auto) 16.1 H (1.8-7.7) th/mm3 Lymph # (Auto) 0.6 L (1.0-4.8) th/mm3 Mitchell # (Auto) 0.6 (0.0-0.9) th/mm3 Eos # (Auto) 0.0 (0.0-0.4) th/mm3 Baso # (Auto) 0.0 (0.0-0.2) th/mm3 WBC Differential . Differential Comment Auto diff final PT 13.6 H (9.8-11.6) sec INR 1.3 Ratio APTT 27.6 (24.3-30.1) sec POC Sodium (137-144) mmol/L Sodium (136-145) meq/L POC Potassium (3.6-5.0) mmol/L Potassium (3.5-5.1) meq/L POC Chloride (102-111) mmol/L Chloride (98-107) meq/L Carbon Dioxide (21.0-32.0) meq/L Anion Gap (5-15) meq/L POC BUN (5-21) mg/dL BUN (7-18) mg/dL Creatinine (0.50-1.00) mg/dL POC Creatinine (0.6-1.3) mg/dL Estimated GFR (>89) mL/min POC Glucose (68-110) mg/dL Random Glucose (74-106) mg/dL Lactic Acid 1.8 (0.4-2.0) mmol/L Calcium (8.5-10.1) mg/dL Total Bilirubin (0.2-1.0) mg/dL AST (15-37) U/L ALT (10-53) U/L Alkaline Phosphatase (45-117) U/L Troponin I (0.02-0.05) ng/mL Total Protein (6.4-8.2) g/dL Albumin (3.4-5.0) g/dL Lipase (73-393) U/L Urine Color (Yellw/Straw) Urine Clarity (Clear) Urine pH (5.0-8.5) Ur Specific [place] (1.002-1.035) Urine Protein (Neg-Trace) mg/dL Urine Glucose (UA) (Negative) mg/dL Urine Ketones (Negative) mg/dL Urine Occult Blood (Negative) Urine Nitrate (Negative) Urine Bilirubin (Negative) Urine Urobilinogen (Less than 2) mg/dL Ur Leukocyte Esterase (Negative) Urine RBC (0-3) /hpf Urine WBC (0-5) /hpf Urine Mucus (Occasional) /lpf Micro UA Comment Ur Microscopic Review Urine Culture Comments Blood Type Blood Type Recheck Antibody Screen Antibody Identification Antigen Identification MTS Gel Crossmatch 05/20/18 05/20/18 Range/Units 02:20 03:05 WBC (4.0-11.0) th/mm3 RBC (4.00-5.30) mil/mm3 Hgb (11.6-15.3) gm/dL POC Hgb (Calc) 9.5 L (11.6-15.3) g/dL Hct (35.0-46.0) % POC Hct 28.0 L (35-46.0) % MCV (80.0-100.0) fL MCH (27.0-34.0) pg MCHC (32.0-36.0) % RDW (11.6-17.2) % Plt Count (150-450) th/mm3 MPV (7.0-11.0) fL Neut % (Auto) (16.0-70.0) % Lymph % (Auto) (9.0-44.0) % Mitchell % (Auto) (0.0-8.0) % Eos % (Auto) (0.0-4.0) % Baso % (Auto) (0.0-2.0) % Neut # (Auto) (1.8-7.7) th/mm3 Lymph # (Auto) (1.0-4.8) th/mm3 Mitchell # (Auto) (0.0-0.9) th/mm3 Eos # (Auto) (0.0-0.4) th/mm3 Baso # (Auto) (0.0-0.2) th/mm3 WBC Differential Differential Comment PT (9.8-11.6) sec INR Ratio APTT (24.3-30.1) sec POC Sodium 137 (137-144) mmol/L Sodium (136-145) meq/L POC Potassium 4.4 (3.6-5.0) mmol/L Potassium (3.5-5.1) meq/L POC Chloride 102 (102-111) mmol/L Chloride (98-107) meq/L Carbon Dioxide (21.0-32.0) meq/L Anion Gap (5-15) meq/L POC BUN 38 H (5-21) mg/dL BUN (7-18) mg/dL Creatinine (0.50-1.00) mg/dL POC Creatinine 2.1 H (0.6-1.3) mg/dL Estimated GFR (>89) mL/min POC Glucose 198 H (68-110) mg/dL Random Glucose (74-106) mg/dL Lactic Acid (0.4-2.0) mmol/L Calcium (8.5-10.1) mg/dL Total Bilirubin (0.2-1.0) mg/dL AST (15-37) U/L ALT (10-53) U/L Alkaline Phosphatase (45-117) U/L Troponin I (0.02-0.05) ng/mL Total Protein (6.4-8.2) g/dL Albumin (3.4-5.0) g/dL Lipase (73-393) U/L Urine Color Yellow (Yellw/Straw) Urine Clarity Clear (Clear) Urine pH 6.0 (5.0-8.5) Ur Specific [place] 1.011 (1.002-1.035) Urine Protein Negative (Neg-Trace) mg/dL Urine Glucose (UA) Negative (Negative) mg/dL Urine Ketones Negative (Negative) mg/dL Urine Occult Blood Negative (Negative) Urine Nitrate Negative (Negative) Urine Bilirubin Negative (Negative) Urine Urobilinogen Less than 2 (Less than 2) mg/dL Ur Leukocyte Esterase Negative (Negative) Urine RBC Less than 1 (0-3) /hpf Urine WBC 1 (0-5) /hpf Urine Mucus Few H (Occasional) /lpf Micro UA Comment Culture not ind Ur Microscopic Review Not Reportable Urine Culture Comments Culture not ind Blood Type Blood Type Recheck Antibody Screen Antibody Identification Antigen Identification MTS Gel Crossmatch Imaging Data Radiologist's impression: Abdomen X-Ray 05/20/18 02:10 CONCLUSION: Nonspecific, benign abdomen appearance. Abdomen/Pelvis CT 05/20/18 02:10 CONCLUSION: Rectal fecal impaction and likely mild proctitis Chest X-Ray 05/20/18 02:10 CONCLUSION: Negative examination. ECG Data EKG Prior to Arrival: No Attestation: I personally reviewed and interpreted this ECG as follows: (Sinus rhythm at a rate of 84 bpm. Baseline is erratic and there is T-wave flattening present throughout no ST changes.) Discharge Plan Discharge Details Diagnosis: Abdominal pain, acute, STEPHIE (acute kidney injury) Physicians Team ED Provider: Claire Goodrich Primary Care Provider: Dakota Azevedo V Other Providers: Julián Navarro Rxs /Orders / Referrals /Forms Prescriptions: No Action atorvastatin 40 mg Tablet 40 mg PO DAILY RF: 0 carvedilol [Coreg] 12.5 mg Tablet 12.5 mg PO BID RF: 0 ipratropium-albuterol 0.5 mg-3 mg(2.5 mg base)/3 mL Solution For Nebulization 3 ml INHALATION QID RF: 0 ammonium lactate 12 % Lotion 1 applic TOPICAL DAILY RF: 0 trazodone 50 mg Tablet 50 mg PO DAILY RF: 0 prednisone 5 mg Tablet 5 mg PO DAILY RF: 0 ciprofloxacin HCl [Cipro] 500 mg Tablet 500 mg PO BID RF: 0 aspirin [Aspir-Low] 81 mg Tablet,Delayed Release (Dr/Ec) 81 mg PO DAILY RF: 0 acetaminophen [Tylenol Extra Strength] 500 mg Tablet 500 mg PO Q4H PRN (Reason: Pain) RF: 0 alprazolam [Xanax] 0.5 mg Tablet 0.5 mg PO BID PRN (Reason: Anxiety) RF: 0 captopril-hydrochlorothiazide 25-25 mg Tablet 1 tab PO BID RF: 0 amlodipine [Norvasc] 10 mg Tablet 10 mg PO DAILY RF: 0 hydralazine 100 mg Tablet 75 mg PO TID RF: 0 ranitidine HCl 150 mg Capsule 150 mg PO DAILY RF: 0 gabapentin 100 mg Capsule 100 mg PO TID RF: 0 ibuprofen 600 mg Tablet 5 mg/kg PO Q6-8H PRN (Reason: Pain) RF: 0 omeprazole magnesium [Prilosec OTC] 20 mg Tablet,Delayed Release (Dr/Ec) 20 mg PO DAILY RF: 0 melatonin 1 mg Tablet 3 mg PO HS PRN (Reason: Insomnia) RF: 0 budesonide-formoterol [Symbicort] 160-4.5 mcg/actuation Hfa Aerosol Inhaler 2 puff INHALATION BID RF: 0 rivaroxaban [Xarelto] 20 mg Tablet 20 mg PO DAILY RF: 0 Status ED Status: With Doctor
[2018-05-20 03:19] LABS: Bilirubin,Urine Negative (Negative); Clarity,Urine Clear (Clear); Color,Urine Yellow (Yellw/Straw); Glucose,Urine (UA) Negative (Negative); Leukocyte Esterase,Urine Negative (Negative); Mucus,Urine Few /lpf (Occasional); Nitrite,Urine Negative (Negative); Specific Gravity,Urine 1.011 (1.002-1.035)
[2018-05-20] MEDS ORDERED: Mineral Oil Enema 118 ML Bottle RECTAL ONE (03:23)
[2018-05-20] MEDS ORDERED: Bisacodyl 10 MG Supp RECTAL ONE (03:23)
--- NOTE | 2018-05-20 03:55 | CT ---
EXAM DATE: 05/20/2018 3:14 AM EDT AGE/SEX: 68 years / Female INDICATIONS: Abdomen pain; blood in stool. CLINICAL DATA: This is the patient's initial encounter. Patient reports that signs and symptoms have been present for 1 day and indicates a pain score of 5/10. MEDICAL/SURGICAL HISTORY: . Physch None. RADIATION DOSE: 12.29 CTDI (mGy) COMPARISON: [facility], CT ABDOMEN W/O CONTRAST, 05/11/2018. . TECHNIQUE: Multiple contiguous axial images were obtained through the abdomen. Images were obtained using multiple row detector helical technique. Using automated exposure control and adjustment of the mA and/or kV according to patient size, radiation dose was kept as low as reasonably achievable to o btain optimal diagnostic quality images. DICOM format image data is available electronically for rev iew and comparison. FINDINGS: Lower Lungs: The visualized lower lungs are clear. Liver: The liver has a homogeneous density without space-occupying lesion. Dilatation of the extrahep atic biliary tree is potentially reservoir effect postcholecystectomy. Spleen: Homogeneous density without enlargement. Pancreas: Unremarkable without mass or calcification. Kidneys: Normal in size and shape. No evidence of mass or hydronephrosis. Adrenal Glands: Unremarkable. Aorta: Prominent atherosclerotic calcification involving abdominal aorta and branch vessels. Slight distal aortic ectasia. Bowel/Mesentery: Rectosigmoid is distended with formed stool and there is mild indurative change in the perirectal and perisigmoid fatty tissues. The small bowel is nondilated. Abdominal Wall: Intact. Retroperitoneum: No evidence of adenopathy in the retrocrural, para-aortic, or deep pelvic regions. Bladder: Decompressed with Chirinos catheter Reproductive Organs: No abnormal masses or calcifications seen. Inguinal: The inguinal region is unremarkable without evidence of adenopathy. Bony Structures: Unremarkable. CONCLUSION: Rectal fecal impaction and likely mild proctitis Electronically signed by: Brando Laureano MD 05/20/2018 3:53 AM EDT
[2018-05-20] MEDS ORDERED: Morphine Inj 4 MG/ML Vial IV.PUSH PRN (04:43)
[2018-05-20] MEDS ORDERED: Naloxone Inj 0.4 MG/ML Vial ONE (05:15)
[2018-05-20] MEDS ORDERED: Sod Chloride 0.9% Inj 1,000 ML IV.SIG SCH (05:15)
[2018-05-20] MEDS ORDERED: Etomidate Inj 40 MG/20 ML Vial IV.PUSH ONE ×2 (05:20→05:29)
[2018-05-20] MEDS ORDERED: Succinylcholine Inj 200 MG/10 ML Vial IV.PUSH ONE (05:29)
[2018-05-20] MEDS ORDERED: fentaNYL 10 mcg/mL Premix Drip 2,500 MCG/250 ML BAG IV.SIG PRN ×2 (05:29→07:14)
[2018-05-20] MEDS ORDERED: Naloxone Inj 0.4 MG/ML Vial IV.PUSH ONE (05:29)
[2018-05-20 05:38] LABS: Hematocrit 27.5 % (35.0-46.0); Hemoglobin 8.4 gm/dL (11.6-15.3)
--- NOTE | 2018-05-20 05:47 | P.HPCC ---
History of Present Illness Primary Care Physician: Dakota Azevedo MD History of Present Illness: 68-year-old female, with past medical history significant for COPD, PE, on blood thinners, presented initially with complaint of GI bleed. Per EMS report they were called to the half-way for respiratory distress. On their arrival they state that she was not in respiratory distress but she was hypotensive with a systolic blood pressure in the 60s and delayed cap refill. Blood sugar was within normal limits. They noted dark bloody stools. They were able to secure an IV and route did give her about 350 cc of fluids prior to arrival. Her last blood pressure prior to arrival was in the 110s systolic. Patient was able to say that her abdomen hurts but was not answering too many more questions, she denied chest pain, shortness of breath. The CT of the abdomen showed only large amount of stool in the bowel and the patient passed a large volume of stool after manual disimpaction. Shortly after this she has lost consciousness, became unresponsive with GCS of 3 requiring emergent intubation for an airway protection by ED attending. Inpatient Certification: I certify that the inpatient services were ordered in accordance with Medicare regulations governing the order. This includes certification that hospital inpatient services are reasonable and necessary and in the case of services not specified as inpatient-only under 42 CFR 419.22(n), that they are appropriately provided as inpatient services in accordance to with the 2-midnight benchmark under 43 CFR 412.3(e) Estimated Total Length of Stay (Days): 2 Plans for Post Hospital Care: Not yet determined Review of Systems unobtainable due to endotracheal tube PMFSH - History History Provided By: Medical Record - Medical History Medical History: Medical History (Last Reviewed 05/20/18 @ 02:54 by Claire Goodrich MD) Anterior urethral stricture Anxiety COPD (chronic obstructive pulmonary disease) Depression Edema Hypertension Pulmonary embolism - Surgical History Surgical History: Surgical History (Last Reviewed 05/20/18 @ 02:54 by Claire Goodrich MD) Hx of cholecystectomy Previous section - Tobacco History Second Hand Smoke Exposure: No Tobacco Use In Past 30 Days: No Smoking Status: Unknown if ever smoked Tobacco Type: Cigarettes - Alcohol History How Often Do You Have a Drink Containing Alcohol: Never - Substance Use History Substance History: No History of Abuse - Travel History Recent Travel in the [place] Within the Last 8 Weeks: No Recent Travel Out of the Country Within the Last 8 Weeks: No - Immunization History Tetanus Immunization: Unsure Hx Influenza Vaccine This Season: Yes Medications and Allergies Active Medications: Active Medications Enalaprilat (Vasotec Inj) 2.5 mg IV.PUSH Q6H PRN PRN Reason: SBP>160, DBP>90 Sodium Chloride (Ns Inj) 1,000 mls @ 125 mls/hr IV.CONT .Q8H ANNE Sodium Chloride (Ns Inj) 1,000 mls @ 0 mls/hr IV.SIG BOLUS ANNE Last Admin: 05/20/18 05:15 Dose: 1,000 mls/hr Fentanyl (Fentanyl 10 Mcg/Ml Premix Drip) 2,500 mcg in 250 mls @ 5 mls/hr IV.SIG TITRATE PRN; Protocol PRN Reason: Per Protocol Morphine Sulfate (Morphine Inj) 4 mg IV.PUSH Q4H PRN PRN Reason: pain 6-10 Ondansetron HCl (Zofran Inj) 4 mg IV.PUSH Q6H PRN PRN Reason: NAUSEA Pantoprazole Sodium (Protonix Inj) 40 mg IV.PUSH DAILY ANNE Sodium Chloride (Ns Flush) 2 ml IV.FLUSH PRN PRN PRN Reason: FLUSH AFTER USING IV ACCESS Sodium Chloride (Ns Flush) 2 ml IV.FLUSH BID ANNE Sodium Chloride (Ns Flush) 2 ml IV.FLUSH PRN PRN PRN Reason: FLUSH AFTER USING IV ACCESS Sodium Chloride (Ns Flush) 2 ml IV.FLUSH PRN PRN PRN Reason: FLUSH AFTER USING IV ACCESS Allergies Allergy/AdvReac Type Severity Reaction Status Date / Time No Known Allergies Allergy Verified 05/20/18 02:09 Home Medications Medication Instructions Recorded Confirmed Type acetaminophen [Tylenol Extra 500 mg PO Q4H PRN 05/20/18 05/20/18 History Strength] alprazolam [Xanax] 0.5 mg PO BID PRN 05/20/18 05/20/18 History amlodipine [Norvasc] 10 mg PO DAILY 05/20/18 05/20/18 History ammonium lactate 1 applic TOPICAL DAILY 05/20/18 05/20/18 History aspirin [Aspir-Low] 81 mg PO DAILY 05/20/18 05/20/18 History atorvastatin 40 mg PO DAILY 05/20/18 05/20/18 History budesonide-formoterol [Symbicort] 2 puff INHALATION BID 05/20/18 05/20/18 History captopril-hydrochlorothiazide 1 tab PO BID 05/20/18 05/20/18 History carvedilol [Coreg] 12.5 mg PO BID 05/20/18 05/20/18 History ciprofloxacin HCl [Cipro] 500 mg PO BID 05/20/18 05/20/18 History gabapentin 100 mg PO TID 05/20/18 05/20/18 History hydralazine 75 mg PO TID 05/20/18 05/20/18 History ibuprofen 5 mg/kg PO Q6-8H PRN 05/20/18 05/20/18 History ipratropium-albuterol 3 ml INHALATION QID 05/20/18 05/20/18 History melatonin 3 mg PO HS PRN 05/20/18 05/20/18 History omeprazole magnesium [Prilosec OTC] 20 mg PO DAILY 05/20/18 05/20/18 History prednisone 5 mg PO DAILY 05/20/18 05/20/18 History ranitidine HCl 150 mg PO DAILY 05/20/18 05/20/18 History rivaroxaban [Xarelto] 20 mg PO DAILY 05/20/18 05/20/18 History trazodone 50 mg PO DAILY 05/20/18 05/20/18 History Results - Labs CBC & Chem 7: 05/20/18 15:55 05/20/18 12:12 Labs: Short CBC 05/20/18 05/20/18 Range/Units 02:20 05:25 WBC 17.4 H (4.0-11.0) th/mm3 Hgb 9.4 L 8.4 L (11.6-15.3) gm/dL Hct 30.4 L 27.5 L (35.0-46.0) % Plt Count 326 (150-450) th/mm3 BMP 05/20/18 02:15 Sodium 140 Potassium 4.5 Chloride 103 Carbon Dioxide 30.0 BUN 41 H Creatinine 2.25 H Calcium 8.5 Cardiac Enzymes 05/20/18 Range/Units 02:15 Troponin I Less than 0.02 L (0.02-0.05) ng/mL Liver Function 05/20/18 Range/Units 02:15 Total Bilirubin 0.6 (0.2-1.0) mg/dL AST 22 (15-37) U/L ALT 25 (10-53) U/L Alkaline Phosphatase 111 (45-117) U/L Albumin 2.9 L (3.4-5.0) g/dL Urine 05/20/18 Range/Units 03:05 Urine Color Yellow (Yellw/Straw) Urine Clarity Clear (Clear) Urine pH 6.0 (5.0-8.5) Ur Specific [place] 1.011 (1.002-1.035) Urine Protein Negative (Neg-Trace) mg/dL Urine Glucose (UA) Negative (Negative) mg/dL - Imaging Impressions Abdomen X-Ray 05/20/18 02:10 CONCLUSION: Nonspecific, benign abdomen appearance. Abdomen/Pelvis CT 05/20/18 02:10 CONCLUSION: Rectal fecal impaction and likely mild proctitis Chest X-Ray 05/20/18 02:10 CONCLUSION: Negative examination. Exam Vital signs: Vital Signs 05/20/18 02:09 05/20/18 02:12 05/20/18 02:13 Temperature 98.9 F Pulse Rate 86 Respiratory Rate 24 Blood Pressure 160/67 H Pulse Oximetry 92 L 95 96 05/20/18 03:24 Temperature Pulse Rate 71 Respiratory Rate 18 Blood Pressure 115/51 L Pulse Oximetry 95 Intake & Output 05/19/18 05/19/18 05/20/18 06:59 18:59 06:59 Intake Total 1100 / 1100 Balance 1100 / 1100 Weight 99.79 kg Intake: IV 1100 / 1100 Zosyn 4.5 GM Premix 4.5 gm In 100 / 100 100 ml @ 200 mls/hr IV.SIG STAT STA Rx#:[id number] NS Inj 1,000 ML @ Wide Open IV. 1000 / 1000 SIG BOLUS ONE Rx#:[id number] - Constitutional moderate distress - Routine HEENT Exam Head: Present: normocephalic, atraumatic Eye: Present: PERRL, normal accommodation ENT: Present: mucous membranes dry - Routine Neck Exam Present: supple. Absent: JVD, carotid bruit - Routine Respiratory Exam Present: patient mechanically ventilated. Absent: rhonchi, stridor, wheezes, crackles - Routine Cardiovascular Exam Present: RRR, S1, S2 - Routine Abdominal Exam Present: soft, distended. Absent: tenderness, rebound - Routine Extremities Exam Absent: cyanosis, clubbing, edema - Routine Skin Exam Present: intact. Absent: cyanosis, erythema - Routine Neurological Exam Present: altered mental status GCS 3 Caprini VTE Risk Assessment Caprini VTE Risk Assessment: Moderate/High Risk (score >= 2) VTE Pharmacological Exception Reason: Hemorrhage Caprini Risk Assessment Model: Point Value = 1 Point Value = 2 Point Value = 3 Point Value = 5 Age 41-60 Minor surgery BMI > 25 kg/m2 Swollen legs Varicose veins or History of unexplained or recurrent spontaneous Oral contraceptives or hormone replacement Sepsis (< 1 month) Serious lung disease, including pneumonia (< 1 month) Abnormal pulmonary function Acute myocardial infarction Congestive heart failure (< 1 month) History of inflammatory bowel disease Medical patient at bed rest Age 61-74 Arthroscopic surgery Major open surgery (> 45 min) Laparoscopic surgery (> 45 min) Malignancy Confined to bed (> 72 hours) Immobilizing plaster cast Central venous access Age >= 75 History of VTE Family history of VTE Factor V Leiden Prothrombin [id number] Lupus anticoagulant Anticardiolipin antibodies Elevated serum homocysteine Heparin-induced thrombocytopenia Other congenital or acquired thrombophilia Stroke (< 1 month) Elective arthroplasty Hip, pelvis, or leg fracture Acute spinal cord injury (< 1 month) Prophylaxis Regimen: Total Risk Factor Score Risk Level Prophylaxis Regimen 0-1 Low Early ambulation 2 Moderate Order ONE of the following: *Sequential Compression Device (SCD) *Heparin 5000 units SQ BID 3-4 Higher Order ONE of the following medications: *Heparin 5000 units SQ TID *Enoxaparin/Lovenox 40 mg SQ daily (WT < 150 kg, CrCl > 30 mL/min) *Enoxaparin/Lovenox 30 mg SQ daily (WT < 150 kg, CrCl > 10-29 mL/min) *Enoxaparin/Lovenox 30 mg SQ BID (WT < 150 kg, CrCl > 30 mL/min) AND/OR *Sequential Compression Device (SCD) 5 or more Highest Order ONE of the following medications: *Heparin 5000 units SQ TID (Preferred with Epidurals) *Enoxaparin/Lovenox 40 mg SQ daily (WT < 150 kg, CrCl > 30 mL/min) *Enoxaparin/Lovenox 30 mg SQ daily (WT < 150 kg, CrCl > 10-29 mL/min) *Enoxaparin/Lovenox 30 mg SQ BID (WT < 150 kg, CrCl > 30 mL/min) AND *Sequential Compression Device (SCD) Assessment and Plan - Assessment and Plan Plan: Respiratory failure -Intubated for an airway protection -No weaning until neurologically improve -Vent bundle -DuoNeb's as needed COPD -DuoNeb scheduled and as needed -Continue home dose prednisone GI bleed -N.p.o. -Protonix IV twice daily -Gastroenterology consultation Altered mental status -Likely vagal response -CT head pending -Neuro checks per unit protocol -Correct hypercarbia History of pulmonary embolism -Hold anticoagulation until cleared by GI Constipation -As needed meds per unit protocol DVT GI prophylaxis -Teds SCDs -No pharmacological DVT prophylaxis due to acute GI bleed -Protonix IV twice daily 35 minutes of critical care
[2018-05-20] MEDS ORDERED: fentaNYL 10 mcg/mL Premix Drip 2,500 MCG/250 ML BAG ONE (05:49)
--- NOTE | 2018-05-20 06:07 | XR ---
EXAM DATE: 05/20/2018 5:45 AM EDT AGE/SEX: 68 years / Female INDICATIONS: Post intubation. CLINICAL DATA: This is the patient's initial encounter. Patient reports that signs and symptoms have been present for 1 day and indicates a pain score of 0/10. MEDICAL/SURGICAL HISTORY: Non-responsive. Non-responsive. COMPARISON: [facility], CHEST 1V SINGLE AP, 05/20/2018. . FINDINGS: Endotracheal tube is present in good position with tip several centimeters above the mo. A nasoga stric tube descends into the stomach. There is mild bibasilar parenchymal opacity present. Cardiac co ntours are unchanged. CONCLUSION: Satisfactory endotracheal tube positioning. Slight bibasilar parenchymal opacities. Electronically signed by: Brando Laureano MD 05/20/2018 6:05 AM EDT
[2018-05-20] MEDS ORDERED: ALPRAZolam 0.5 MG Tablet PO PRN (06:12)
[2018-05-20] MEDS ORDERED: Acetaminophen 500 MG Tablet PO PRN (06:12)
[2018-05-20] MEDS ORDERED: Bisacodyl 10 MG Supp RECTAL PRN (06:17)
[2018-05-20 06:34] LABS: ABG Base Excess -1.6 mmol/L (-2-2); ABG PCO2 65 mmHg (38-42); ABG PO2 338 mmHg (61-120)
--- NOTE | 2018-05-20 06:52 | CT ---
EXAM DATE: 05/20/2018 6:29 AM EDT AGE/SEX: 68 years / Female INDICATIONS: Altered mental status. CLINICAL DATA: This is the patient's initial encounter. Patient reports that signs and symptoms have been present for 1 day and indicates a pain score of Nonresponsive. MEDICAL/SURGICAL HISTORY: Non-responsive. Non-responsive. RADIATION DOSE: 56.35 CTDI (mGy) COMPARISON: No prior exams available for comparison. TECHNIQUE: CT of the head without contrast. Using automated exposure control and adjustment of the mA and/or kV according to patient size, radiation dose was kept as low as reasonably achievable to ob tain optimal diagnostic quality images. DICOM format image data is available electronically for revi ew and comparison. FINDINGS: The ventricles are symmetric and normal. There is no evidence of intracranial hemorrhage or mass. Pat syeda diminished attenuation in deep white matter which appears chronic and benign. There is nothing to suggest acute infarction. There is a mucous retention cyst in the right maxillary antrum. Extracrani al structures are otherwise benign and intact. CONCLUSION: No acute intracranial findings . Electronically signed by: Brando Laureano MD 05/20/2018 6:50 AM EDT
[2018-05-20] MEDS: Sod Chloride 0.9% Inj 1,000 ML IV.CONT SCH ×3 (06:55→21:36)
[2018-05-20] MEDS ORDERED: Dextrose 50% in Water 50 ML Vial IV.PUSH PRN (07:06)
--- NOTE | 2018-05-20 07:13 | P.PNCC ---
Subjective Subjective Remarks/Hospital Course: 68-year-old female, with past medical history significant for COPD, PE, on blood thinners, presented initially with complaint of GI bleed. Per EMS report they were called to the snf for respiratory distress. On their arrival they state that she was not in respiratory distress but she was hypotensive with a systolic blood pressure in the 60s and delayed cap refill. Blood sugar was within normal limits. They noted dark bloody stools. They were able to secure an IV and route did give her about 350 cc of fluids prior to arrival. Her last blood pressure prior to arrival was in the 110s systolic. Patient was able to say that her abdomen hurts but was not answering too many more questions, she denied chest pain, shortness of breath. The CT of the abdomen showed only large amount of stool in the bowel and the patient passed a large volume of stool after manual disimpaction. Shortly after this she has lost consciousness, became unresponsive with GCS of 3 requiring emergent intubation for an airway protection by ED attending. Subjective 05/20: Patient still became more hypotensive. Receiving 2 units PRBCs and K Centra 4500 units x1 now. Minimal response on the ventilator. Did withdraw to vigorous stimuli/sternal rub. Afebrile. Objective Vital Signs / I&O: Vital Signs 05/20/18 02:09 05/20/18 02:10 05/20/18 02:12 Temperature Pulse Rate 86 77 Respiratory Rate 24 20 Blood Pressure 160/67 H 115/71 Pulse Oximetry 92 L 96 95 05/20/18 02:13 05/20/18 03:24 05/20/18 04:30 Temperature 98.9 F Pulse Rate 71 71 Respiratory Rate 18 18 Blood Pressure 115/51 L 127/70 Pulse Oximetry 96 95 97 05/20/18 05:15 05/20/18 05:25 05/20/18 05:41 Temperature Pulse Rate 76 81 Respiratory Rate 18 18 14 Blood Pressure 97/61 L 88/47 L Pulse Oximetry 98 97 100 05/20/18 06:00 05/20/18 06:15 05/20/18 06:30 Temperature Pulse Rate 71 Respiratory Rate 18 21 Blood Pressure 146/71 H Pulse Oximetry 98 100 100 Intake & Output 05/19/18 05/20/18 05/20/18 18:59 06:59 18:59 Intake Total 2100 / 2100 Output Total 300 / 300 Balance 1800 / 1800 Weight 85.7 kg Intake: IV 2099 Zosyn 4.5 GM Premix 4.5 gm In 100 / 100 100 ml @ 200 mls/hr IV.SIG STAT STA Rx#:[id number] NS Inj 1,000 ML @ Wide Open IV. 1999 SIG BOLUS ANNE Rx#:[id number] Output: Urine Amount (Catheter) 300 / 300 Indwelling Urethral Catheter 300 / 300 Other: Weight On Admission 85.7 kg Result Diagrams: 05/20/18 05:25 05/20/18 02:15 Imaging: Abdomen X-Ray 05/20/18 02:10 CONCLUSION: Nonspecific, benign abdomen appearance. Abdomen/Pelvis CT 05/20/18 02:10 CONCLUSION: Rectal fecal impaction and likely mild proctitis Chest X-Ray 05/20/18 02:10 CONCLUSION: Negative examination. Chest X-Ray 05/20/18 05:29 CONCLUSION: Satisfactory endotracheal tube positioning. Slight bibasilar parenchymal opacities. Head CT 05/20/18 05:44 CONCLUSION: No acute intracranial findings . Objective Remarks: GENERAL: 68-year-old female currently resting in bed in no acute distress SKIN: Warm and dry. No rash HEAD: Atraumatic. Normocephalic. EYES: Pupils equal and round. No scleral icterus. No injection or drainage. ENT: No nasal bleeding or discharge. Mucous membranes pink and moist. NECK: Trachea midline. No JVD. CARDIOVASCULAR: Regular rate and rhythm. S1, S2 predose 4. 1/6 systolic murmur r RESPIRATORY: No accessory muscle use. Clear to auscultation. Breath sounds equal bilaterally. GASTROINTESTINAL: Abdomen distended and protuberant with hypoactive bowel sounds appreciate MUSCULOSKELETAL: Extremities trace bilateral lower extremity edema. No obvious deformities. NEUROLOGICAL: Sedated on the ventilator. Positive corneal effect. Positive pupillary reflex 4 mm down to 3 mm. Positive gag and cough. Withdraws to sternal rub. Assessment and Plan - Assessment and Plan Plan: Neuro/Psych: Depression/anxiety disorder NOS Peripheral neuropathy Chronic insomnia Acute syncope likely vagal Holding alprazolam 0.5 mg twice daily/home medication Currently on trazodone 50 mg at night for depression Gabapentin 100 mg 3 times daily for peripheral neuropathy Ofirmev 650 mg IV every 6 hours as needed fever Currently on propofol/fentanyl drips for sedation/analgesia while intubated Goal of RASS -[address] brain 05/20 revealed no acute intracranial findings Holding melatonin 3 mg at night for insomnia CV: Essential hypertension Hyperlipidemia Questionable atrial septal defect on echocardiogram 04/[address] Hooks 04/18 admission. Started on rivaroxaban. 2D echocardiogram time revealed EF 65-30%. LVH. Essentially normal pulmonary arterial pressures. Holding anti-pretenses including amlodipine 10 mg daily, captopril/ hydrochlorthiazide 25/25 1 tablet daily, carvedilol 25 mg twice daily and hydralazine 75 mg 3 times daily in light of acute bleeding. On atorvastatin 40 mg daily for dyslipidemia. Hold aspirin 81 mg daily in light of GI bleed Resp: Acute respiratory failure COPD History of pulmonary embolism on chronic rivaroxaban [facility] /09/05/39 Ventilator bundle Albuterol/ipratropium aerosols every 4 hours with albuterol aerosols every 2 as needed for dyspnea Continue budesonide/formoterol 160/4.52 puffs twice daily via ventilator Chest x-ray post intubation revealed no acute cardiopulmonary findings GI: Fecal impaction GI bleed Hypoalbuminemia Elevated lipase of unclear significance NG tube to low remnant wall suction Pantoprazole 40 mg IV twice daily Docusate serum/senna 1 tablet twice daily for bowel regimen GI consultation for endoscopy Disimpacted in the ED. Possibly vagal during that event. CT abdomen/pelvis revealed fecal disimpaction. Possible proctitis. : History of anterior urethral stricture Chirinos catheter if indicated Endo: Hyperglycemia Chronic prednisone use Sliding scale insulin with aspart insulin medium regimen every 6 hours to maintain euglycemia Check TSH Put on hydrocortisone 100 mg 3 times daily/stress still. Renal: Acute kidney injury Baseline creatinine around 1.1. Monitor urine output Accurate I's and O's CT abdomen/pelvis revealed no hydronephrosis. Check urine eosinophils, sodium and creatinine. Avoid nephrotoxic medication. Heme: Acute blood loss anemia Chronic requires of him use Receiving 45 minutes K Centra currently. Serial hemoglobins every 6 hours Transfuse 2 units PRBCs currently. ID: Received vancomycin and piperacillin/tazobactam ED. UA negative Blood cultures x2, sputum, influenza a and B pending FEN: Replace electrolytes as clinically indicated Currently on normal saline at 125 cc now MSK: Elevated BMI Weight loss encouraged Access -Utilize peripheral IV. Central line if indicated Prophylaxis -GI -pantoprazole -DVT-SCD/holding pharmacological prophylaxis in light of GI bleed Additional 35 minutes critical care time Code Status: Full code
[2018-05-20] MEDS ORDERED: Norepinephrine Inj 16 MG in Sodium Chlor 0.9% Inj 234 ML IV.CONT PRN (07:14)
[2018-05-20] MEDS ORDERED: Acetaminophen Inj 650 MG/65 ML VIAL IV.SIG PRN (07:17)
[2018-05-20] MEDS ORDERED: Prothrombin Complex Conc Inj 4,500 UNIT in Syringe/Bag 1 EACH IV.SIG ONE (07:20)
[2018-05-20] MEDS ORDERED: Chlorhexidine 0.12% Oral Kit 15 ML UDC OROPHARYNG SCH (08:00)
[2018-05-20] MEDS ORDERED: predniSONE 5 MG Tablet PO SCH (09:00)
[2018-05-20] MEDS ORDERED: Pantoprazole Inj 40 MG Vial IV.PUSH SCH (09:00)
[2018-05-20] MEDS ORDERED: Albumin Human 5% Inj 500 ML IV.SIG ONE (09:00)
--- NOTE | 2018-05-20 09:01 | P.PCN ---
Date of procedure: 05/20/18 Pre-op diagnosis: Acute respiratory failure, GI bleed Post-op diagnosis: same Procedure: DATE: 05/20/18 CENTRAL LINE PLACEMENT: Left internal jugular vein. Ultrasound-guided INDICATION: Central venous access CONSENT Informed consent for procedure was obtained from dtr. DESCRIPTION OF THE PROCEDURE The patient was placed in supine position. The skin was cleansed with Chloraprep. Additional barrier precautions included large sterile drape, sterile gloves, sterile gown, face mask, and hat. 1 % lidocaine was used for local anesthesia. Under direct ultrasound guidance and on initial attempt, the vein was accessed with an introducer needle. The guide wire was advanced and the tract was dilated. Using Seldinger technique a 7 [place] 20 cm antimicrobial coated triple-lumen catheter was advanced to a depth of 20 centimeters. The guide wire was removed. All ports had good return of dark venous blood and flushed easily with saline. The central line was secured with 2.0 silk. StatLock do not adhere to skin. A sterile dressing with antibiotic disc was applied. ESTIMATED BLOOD LOSS: Minimal COMPLICATIONS: No apparent complications. STAT chest x-ray pending at time of dictation.
[2018-05-20] MEDS: Chlorhexidine 0.12% Oral Kit 15 ML UDC OROPHARYNG SCH ×2 (09:07→20:09)
--- NOTE | 2018-05-20 09:55 | XR ---
EXAM DATE: 05/20/2018 9:51 AM EDT AGE/SEX: 68 years / Female INDICATIONS: Post central line placement. CLINICAL DATA: This is the patient's subsequent encounter. Patient reports that signs and symptoms h ave been present for 1 day and indicates a pain score of Nonresponsive. MEDICAL/SURGICAL HISTORY: Non-responsive. Non-responsive. COMPARISON: [facility], CHEST 1V SINGLE AP, 05/20/2018. . FINDINGS: Stable ETT and NGT. Interval placement left IJ central line with tip in the mid SVC. No significant p neumothorax. Residual minimal airspace disease at the bases bilaterally. Cardiomediastinal contours a re within normal limits. Remainder of exam is unchanged. CONCLUSION: 1. Left IJ central line in the mid SVC without pneumothorax. Electronically signed by: Sanket Regalado MD 05/20/2018 9:54 AM EDT
[2018-05-20] MEDS: Pantoprazole Inj 40 MG Vial IV.PUSH SCH ×2 (10:27→20:10)
[2018-05-20] MEDS: Budesonide-Formoterol 160/4.5 MCG 6 GM Inhaler INH SCH ×2 (10:27→20:55)
[2018-05-20] MEDS: Senna/Docusate Sodium 8.6/50 MG Tablet PO SCH ×2 (10:27→20:10)
[2018-05-20] MEDS: traZODone 50 MG Tablet PO SCH (10:27)
[2018-05-20] MEDS: Polyvinyl Alcohol/Povidone PF Opth Drops 0.4 ML Dropperette EACH EYE SCH ×2 (10:29→20:10)
[2018-05-20 11:59] LABS: ABG Base Excess -1.5 mmol/L (-2-2); ABG PCO2 42 mmHg (38-42); ABG PO2 68 mmHG (61-120)
[2018-05-20] MEDS: Insulin NovoLOG Aspart Correctional Sugar Inj SQ SCH ×2 (12:00→18:00)
[2018-05-20] MEDS: Oral Hygiene Kit OROPHARYNG SCH ×2 (12:00→15:56)
--- NOTE | 2018-05-20 12:01 | P.CONGI ---
History of Present Illness Consult date: 05/19/18 Consult reason: GI bleed Chief complaint: GI Bleed, STEPHIE History of Present Illness: This is a 68-year-old female who presented [facility] the emergency room [facility] a [facility] on 05/14/2018 according to the record patient was not in respiratory distress on arrival but she was hypotensive and they noted dark bloody stools. Patient was admitted to the intensive care area and is now on ventilator management as well as altered mental status. Patient is currently receiving EEG and is been ruled out for possible CVA secondary to her initial lethargy. According to the record patient was having some abdominal pain on admission and had a manual disimpaction performed with relief of a large hard solid stool. Patient has a history of Motrin usage, prednisone as well as history of PE and was on Xarelto. Current hemoglobin was initially 9.4 now 8.4 , PT/INR 1.3, bilirubin LFTs and alkaline phosphatase are normal. Patient had CT scan of the abdomen which showed mild proctitis. Gastroenterology was consulted to assist with her GI bleed, GI symptoms as well as plan of care. According to the record patient and staff patient had recent laparoscopic cholecystectomy. Currently patient remains critically ill with ventilator management as well as her change in neuro status. Most of the information is being gathered from the record and/or the nursing staff caring for her <[place],Gladys Alfredo - Last Filed: 05/20/18 12:02> Review of Systems All other systems reviewed negative except as stated in HPI <Gladys Yuan Alfredo - Last Filed: 05/20/18 12:02> [facility] - History History Provided By: Medical Record - Medical History Medical History: Medical History (Last Reviewed 05/20/18 @ 02:54 by Claire Goodrich MD) Anterior urethral stricture Anxiety COPD (chronic obstructive pulmonary disease) Depression Edema Hypertension Pulmonary embolism - Surgical History Surgical History: Surgical History (Last Reviewed 05/20/18 @ 02:54 by Claire Goodrich MD) Hx of cholecystectomy Previous section - Tobacco History Second Hand Smoke Exposure: No Tobacco Use In Past 30 Days: No Smoking Status: Unknown if ever smoked Tobacco Type: Cigarettes - Alcohol History How Often Do You Have a Drink Containing Alcohol: Never - Substance Use History Substance History: No History of Abuse - Travel History Recent Travel in the [facility] Within the Last 8 Weeks: No Recent Travel Out of the Country Within the Last 8 Weeks: No - Immunization History Tetanus Immunization: Unsure Hx Influenza Vaccine This Season: Yes <Gladys Yuan - Last Filed: 05/20/18 12:02> - Medical History Medical History: Medical History (Last Reviewed 05/20/18 @ 02:54 by Claire Goodrich MD) Anterior urethral stricture Anxiety COPD (chronic obstructive pulmonary disease) Depression Edema Hypertension Pulmonary embolism - Surgical History Surgical History: Surgical History (Last Reviewed 05/20/18 @ 02:54 by Claire Goodrich MD) Hx of cholecystectomy Previous section <Julián Navarro - Last Filed: 05/20/18 21:37> Medications and Allergies Active Medications: Active Medications Al Hydroxide/Mg Hydroxide (Milk Of Magnvinay Liq) 30 ml PO Q12H PRN PRN Reason: Mild Constipation Albuterol (Albuterol Neb (Prn)) 2.5 mg NEB Q2HR NEB PRN PRN Reason: DYSPNEA Albuterol (Duoneb Neb ([facility])) 1 ampul NEB Q4HR NEB [facility] Last Admin: 05/20/18 08:19 Dose: 1 ampul Artificial Tears (Refresh Classic 1.4/0.6% Pf Opth Drops) 1 drop EACH EYE BID [facility] Last Admin: 05/20/18 10:29 Dose: 1 drop Atorvastatin Calcium (Lipitor) 40 mg PO DAILY [facility] Last Admin: 05/20/18 10:27 Dose: 40 mg Bisacodyl (Dulcolax Supp) 10 mg RECTAL DAILY PRN PRN Reason: SEVERE CONSITIPATION Budesonide/Formoterol Fumarate (Symbicort 160/4.5 Mcg Inh) 2 puff INH BID [facility] Last Admin: 05/20/18 10:27 Dose: Not Given Chlorhexidine Gluconate (Peridex 0.12% Oral Kit) 15 ml OROPHARYNG BID@0800, 2000 [facility] Last Admin: 05/20/18 09:07 Dose: 15 ml Chlorhexidine Gluconate (Chlorhexidine 2% Cloth) 3 pack TOPICAL DAILY@0400 SONNY Stop: 05/26/18 03:59 Chlorhexidine Gluconate (Chlorhexidine 2% Cloth) 3 pack TOPICAL DAILY@0400 PRN PRN Reason: Extra cloth needed Stop: 05/26/18 03:59 Dextrose (D50w Vial) 50 ml IV.PUSH UNSCH PRN PRN Reason: PER HYPOGLYCEMIA PROTOCOL Enalaprilat (Vasotec Inj) 2.5 mg IV.PUSH Q6H PRN PRN Reason: SBP>160, DBP>90 Glucagon (Glucagon Inj) 1 mg OTHER PRN PRN PRN Reason: for Hypoglycemia Protocol Hydrocortisone Sodium Succinate (Solucortef Inj) 100 mg IV.PUSH Q8HR SONNY Sodium Chloride (Ns Inj) 1,000 mls @ 125 mls/hr IV.CONT .Q8H [facility]ON[facility] Last Admin: 05/20/18 06:55 Dose: 125 mls/hr Sodium Chloride (Ns Inj) 1,000 mls @ 0 mls/hr IV.SIG BOLUS [facility] Last Infusion: 05/20/18 05:55 Dose: Infused Acetaminophen (Ofirmev Inj) 650 mg in 65 mls @ 400 mls/hr IV.SIG Q6H PRN PRN Reason: FEVER Norepinephrine Bitartrate 16 (mg/ Sodium Chloride) 250 mls @ 1.87 mls/hr IV.CONT TITRATE PRN; Protocol PRN Reason: See Protocol Propofol (Diprivan 1000 Mg/100 Ml Inj) 1,000 mg in 100 mls @ 2.571 mls/hr IV.CONT TITRATE PRN; Protocol PRN Reason: Per Protocol Fentanyl (Fentanyl 10 Mcg/Ml Premix Drip) 2,500 mcg in 250 mls @ 5 mls/hr IV.SIG TITRATE PRN; Protocol PRN Reason: Per Protocol Insulin Aspart (Novolog Insulin Correctional Sugar Inj) 0 unit SQ Q6HR SONNY; Protocol Lactulose (Lactulose Liq) 30 ml PO DAILY PRN PRN Reason: SEVERE CONSITIPATION Ondansetron HCl (Zofran Inj) 4 mg IV.PUSH Q6H PRN PRN Reason: NAUSEA Pantoprazole Sodium (Protonix Inj) 40 mg IV.PUSH Q12HR [facility] Last Admin: 05/20/18 10:27 Dose: 40 mg Senna/Docusate Sodium (Tanisha-Colace) 1 tab PO BID [facility] Last Admin: 05/20/18 10:27 Dose: 1 tab Sennosides (Senokot) 17.2 mg PO Q12H PRN PRN Reason: Moderate Constipation Sodium Chloride (Ns Flush) 2 ml IV.FLUSH BID [facility] Last Admin: 05/20/18 10:27 Dose: 2 ml Sodium Chloride (Ns Flush) 2 ml IV.FLUSH PRN PRN PRN Reason: FLUSH AFTER USING IV ACCESS Terbutaline Sulfate (Brethine Inj) 1 mg SQ UNSCH PRN PRN Reason: For Extravasation Trazodone HCl (Desyrel) 50 mg PO DAILY [facility] Last Admin: 05/20/18 10:27 Dose: Not Given <Gladys Yuan M - Last Filed: 05/20/18 12:02> Active Medications: Active Medications Al Hydroxide/Mg Hydroxide (Milk Of Marga Johnson) 30 ml PO Q12H PRN PRN Reason: Mild Constipation Albuterol (Albuterol Neb (Prn)) 2.5 mg NEB Q2HR NEB PRN PRN Reason: DYSPNEA Albuterol (Duoneb Neb (Sonny)) 1 ampul NEB Q4HR NEB [facility] Last Admin: 05/20/18 20:28 Dose: 1 ampul Artificial Tears (Refresh Classic 1.4/0.6% Pf Opth Drops) 1 drop EACH EYE BID [facility] Last Admin: 05/20/18 20:10 Dose: 1 drop Atorvastatin Calcium (Lipitor) 40 mg PO DAILY [facility] Last Admin: 05/20/18 10:27 Dose: 40 mg Bisacodyl (Dulcolax Supp) 10 mg RECTAL DAILY PRN PRN Reason: SEVERE CONSITIPATION Budesonide/Formoterol Fumarate (Symbicort 160/4.5 Mcg Inh) 2 puff INH BID [facility] Last Admin: 05/20/18 20:55 Dose: Not Given Chlorhexidine Gluconate (Peridex 0.12% Oral Kit) 15 ml OROPHARYNG BID@0800, 2000 [facility] Last Admin: 05/20/18 20:09 Dose: 15 ml Chlorhexidine Gluconate (Chlorhexidine 2% Cloth) 3 pack TOPICAL DAILY@0400 [facility] Stop: 05/26/18 03:59 Chlorhexidine Gluconate (Chlorhexidine 2% Cloth) 3 pack TOPICAL DAILY@0400 PRN PRN Reason: Extra cloth needed Stop: 05/26/18 03:59 Dextrose (D50w Vial) 50 ml IV.PUSH UNSCH PRN PRN Reason: PER HYPOGLYCEMIA PROTOCOL Enalaprilat (Vasotec Inj) 2.5 mg IV.PUSH Q6H PRN PRN Reason: SBP>160, DBP>90 Glucagon (Glucagon Inj) 1 mg OTHER PRN PRN PRN Reason: for Hypoglycemia Protocol Hydrocortisone Sodium Succinate (Solucortef Inj) 100 mg IV.PUSH Q8HR [facility] Last Admin: 05/20/18 14:49 Dose: 100 mg Sodium Chloride (Ns Inj) 1,000 mls @ 125 mls/hr IV.CONT .Q8H [facility] Last Admin: 05/20/18 19:19 Dose: 125 mls/hr Sodium Chloride (Ns Inj) 1,000 mls @ 0 mls/hr IV.SIG BOLUS [facility] Last Infusion: 05/20/18 05:55 Dose: Infused Acetaminophen (Ofirmev Inj) 650 mg in 65 mls @ 400 mls/hr IV.SIG Q6H PRN PRN Reason: FEVER Norepinephrine Bitartrate 16 (mg/ Sodium Chloride) 250 mls @ 1.87 mls/hr IV.CONT TITRATE PRN; Protocol PRN Reason: See Protocol Propofol (Diprivan 1000 Mg/100 Ml Inj) 1,000 mg in 100 mls @ 2.571 mls/hr IV.CONT TITRATE PRN; Protocol PRN Reason: Per Protocol Last Admin: 05/20/18 12:13 Dose: 5 mcg/kg/min, 2.57 mls/hr Fentanyl (Fentanyl 10 Mcg/Ml Premix Drip) 2,500 mcg in 250 mls @ 5 mls/hr IV.SIG TITRATE PRN; Protocol PRN Reason: Per Protocol Insulin Aspart (Novolog Insulin Correctional Sugar Inj) 0 unit SQ Q6HR [facility]; Protocol Last Admin: 05/20/18 18:00 Dose: 4 unit Lactulose (Lactulose Liq) 30 ml PO DAILY PRN PRN Reason: SEVERE CONSITIPATION Ondansetron HCl (Zofran Inj) 4 mg IV.PUSH Q6H PRN PRN Reason: NAUSEA Pantoprazole Sodium (Protonix Inj) 40 mg IV.PUSH Q12HR [facility] Last Admin: 05/20/18 20:10 Dose: 40 mg Senna/Docusate Sodium (Tanisha-Colace) 1 tab PO BID [facility] Last Admin: 05/20/18 20:10 Dose: 1 tab Sennosides (Senokot) 17.2 mg PO Q12H PRN PRN Reason: Moderate Constipation Sodium Chloride (Ns Flush) 2 ml IV.FLUSH BID [facility] Last Admin: 05/20/18 20:09 Dose: 2 ml Sodium Chloride (Ns Flush) 2 ml IV.FLUSH PRN PRN PRN Reason: FLUSH AFTER USING IV ACCESS Terbutaline Sulfate (Brethine Inj) 1 mg SQ UNSCH PRN PRN Reason: For Extravasation Trazodone HCl (Desyrel) 50 mg PO DAILY [facility] Last Admin: 05/20/18 10:27 Dose: Not Given <Julián Navarro E - Last Filed: 05/20/18 21:37> Allergies Allergy/AdvReac Type Severity Reaction Status Date / Time No Known Allergies Allergy Verified 05/20/18 02:09 Home Medications Medication Instructions Recorded Confirmed Type acetaminophen [Tylenol Extra 500 mg PO Q4H PRN 05/20/18 05/20/18 History Strength] alprazolam [Xanax] 0.5 mg PO BID PRN 05/20/18 05/20/18 History amlodipine [Norvasc] 10 mg PO DAILY 05/20/18 05/20/18 History ammonium lactate 1 applic TOPICAL DAILY 05/20/18 05/20/18 History aspirin [Aspir-Low] 81 mg PO DAILY 05/20/18 05/20/18 History atorvastatin 40 mg PO DAILY 05/20/18 05/20/18 History budesonide-formoterol [Symbicort] 2 puff INHALATION BID 05/20/18 05/20/18 History captopril-hydrochlorothiazide 1 tab PO BID 05/20/18 05/20/18 History carvedilol [Coreg] 12.5 mg PO BID 05/20/18 05/20/18 History ciprofloxacin HCl [Cipro] 500 mg PO BID 05/20/18 05/20/18 History gabapentin 100 mg PO TID 05/20/18 05/20/18 History hydralazine 75 mg PO TID 05/20/18 05/20/18 History ibuprofen 5 mg/kg PO Q6-8H PRN 05/20/18 05/20/18 History ipratropium-albuterol 3 ml INHALATION QID 05/20/18 05/20/18 History melatonin 3 mg PO HS PRN 05/20/18 05/20/18 History omeprazole magnesium [Prilosec OTC] 20 mg PO DAILY 05/20/18 05/20/18 History prednisone 5 mg PO DAILY 05/20/18 05/20/18 History ranitidine HCl 150 mg PO DAILY 05/20/18 05/20/18 History rivaroxaban [Xarelto] 20 mg PO DAILY 05/20/18 05/20/18 History trazodone 50 mg PO DAILY 05/20/18 05/20/18 History Exam Vital signs: Vital Signs 05/20/18 02:09 05/20/18 02:10 05/20/18 02:12 Temperature Pulse Rate 86 77 Respiratory Rate 24 20 Blood Pressure 160/67 H 115/71 Pulse Oximetry 92 L 96 95 05/20/18 02:13 05/20/18 03:24 05/20/18 04:30 Temperature 98.9 F Pulse Rate 71 71 Respiratory Rate 18 18 Blood Pressure 115/51 L 127/70 Pulse Oximetry 96 95 97 05/20/18 05:15 05/20/18 05:25 05/20/18 05:41 Temperature Pulse Rate 76 81 Respiratory Rate 18 18 14 Blood Pressure 97/61 L 88/47 L Pulse Oximetry 98 97 100 05/20/18 06:00 05/20/18 06:15 05/20/18 06:30 Temperature Pulse Rate 71 Respiratory Rate 18 21 Blood Pressure 146/71 H Pulse Oximetry 98 100 100 05/20/18 06:45 05/20/18 08:04 05/20/18 08:25 Temperature 98.5 F 97.6 F Pulse Rate 78 77 75 Respiratory Rate 18 18 18 Blood Pressure 100/44 L 87/42 L Pulse Oximetry 100 100 100 05/20/18 08:41 05/20/18 09:17 05/20/18 09:35 Temperature 98.4 F 98.4 F 97.7 F Pulse Rate 79 83 82 Respiratory Rate 18 21 18 Blood Pressure 115/56 L 129/56 L 121/57 L Pulse Oximetry 95 100 100 05/20/18 10:42 Temperature 97.4 F L Pulse Rate 79 Respiratory Rate 18 Blood Pressure 125/58 L Pulse Oximetry 94 L Intake & Output 05/19/18 05/20/18 05/20/18 18:59 06:59 18:59 Intake Total 2100 / 2100 400 / 400 Output Total 300 / 300 Balance 1800 / 1800 400 / 400 Weight 85.7 kg Intake: IV 2099 / 2099 Zosyn 4.5 GM Premix 4.5 gm In 100 / 100 100 ml @ 200 mls/hr IV.SIG STAT STA Rx#:[id number] NS Inj 1,000 ML @ Wide Open IV. 1999 SIG BOLUS SONNY Rx#:[id number] Intake (Blood Product) Amt 400 / 400 Rbc As-3 Leukoreduced Unit 0 / 0 [id number] Rbc As-3 Leukoreduced Unit 400 / 400 [id number] Output: Urine Amount (Catheter) 300 / 300 Indwelling Urethral Catheter 300 / 300 Other: Weight On Admission 85.7 kg - Constitutional mild distress, obese, obtunded - Routine HEENT Exam Head: Present: normocephalic ENT: Present: mucous membranes moist - Routine Neck Exam Present: supple - Routine Respiratory Exam Present: accessory muscle use, patient mechanically ventilated, decreased breath sounds - Routine Cardiovascular Exam Present: S1, S2 (Regular rhythm sinus heart rate 82) - Routine Abdominal Exam Present: distended (Obese, round, very soft hypoactive bowel sounds, mild tautness.) - Routine Neurological Exam Present: altered mental status <Gladys Yuan - Last Filed: 05/20/18 12:02> Vital signs: Vital Signs 05/20/18 02:09 05/20/18 02:10 05/20/18 02:12 Temperature Pulse Rate 86 77 Respiratory Rate 24 20 Blood Pressure 160/67 H 115/71 Pulse Oximetry 92 L 96 95 05/20/18 02:13 05/20/18 03:24 05/20/18 04:30 Temperature 98.9 F Pulse Rate 71 71 Respiratory Rate 18 18 Blood Pressure 115/51 L 127/70 Pulse Oximetry 96 95 97 05/20/18 05:15 05/20/18 05:25 05/20/18 05:41 Temperature Pulse Rate 76 81 Respiratory Rate 18 18 14 Blood Pressure 97/61 L 88/47 L Pulse Oximetry 98 97 100 05/20/18 06:00 05/20/18 06:15 05/20/18 06:30 Temperature Pulse Rate 71 Respiratory Rate 18 21 Blood Pressure 146/71 H Pulse Oximetry 98 100 100 05/20/18 06:45 05/20/18 07:00 05/20/18 08:00 Temperature 98.5 F 97.6 F Pulse Rate 78 74 Respiratory Rate 18 14 Blood Pressure 100/44 L 87/42 L Pulse Oximetry 100 100 100 05/20/18 08:04 05/20/18 08:25 05/20/18 08:41 Temperature 97.6 F 98.4 F Pulse Rate 77 75 79 Respiratory Rate 18 18 18 Blood Pressure 87/42 L 115/56 L Pulse Oximetry 100 100 95 05/20/18 08:42 05/20/18 08:45 05/20/18 08:48 Temperature Pulse Rate 79 79 Respiratory Rate 18 18 Blood Pressure 110/54 L 112/54 L 118/58 L Pulse Oximetry 96 95 05/20/18 08:51 05/20/18 08:54 05/20/18 08:57 Temperature Pulse Rate 80 79 79 Respiratory Rate 14 15 16 Blood Pressure 118/56 L 120/58 L 127/58 L Pulse Oximetry 93 L 94 L 100 05/20/18 09:00 05/20/18 09:03 05/20/18 09:06 Temperature Pulse Rate 79 79 79 Respiratory Rate 23 11 L 19 Blood Pressure 101/54 L 117/56 L 120/56 L Pulse Oximetry 99 100 100 05/20/18 09:09 05/20/18 09:12 05/20/18 09:17 Temperature 98.4 F Pulse Rate 79 80 83 Respiratory Rate 12 15 21 Blood Pressure 125/57 L 129/56 L 129/56 L Pulse Oximetry 99 100 100 05/20/18 09:30 05/20/18 09:35 05/20/18 10:00 Temperature 97.7 F Pulse Rate 82 82 81 Respiratory Rate 14 18 18 Blood Pressure 121/57 L 121/57 L 95/47 L Pulse Oximetry 100 100 98 05/20/18 10:30 05/20/18 10:42 05/20/18 11:00 Temperature 97.4 F L Pulse Rate 79 79 77 Respiratory Rate 18 18 18 Blood Pressure 125/58 L 125/58 L 126/59 L Pulse Oximetry 100 94 L 99 05/20/18 11:30 05/20/18 12:00 05/20/18 12:52 Temperature 98.4 F Pulse Rate 76 84 Respiratory Rate 18 18 18 Blood Pressure 132/63 158/68 H Pulse Oximetry 96 94 L 95 05/20/18 13:00 05/20/18 13:01 05/20/18 14:00 Temperature 97.7 F Pulse Rate 78 79 79 Respiratory Rate 18 18 18 Blood Pressure 117/56 L 113/53 L Pulse Oximetry 95 95 95 05/20/18 15:00 05/20/18 16:00 05/20/18 16:18 Temperature 98.1 F Pulse Rate 80 79 73 Respiratory Rate 18 18 16 Blood Pressure 114/53 L 116/57 L Pulse Oximetry 95 96 96 05/20/18 17:00 05/20/18 18:00 05/20/18 19:00 Temperature Pulse Rate 74 73 73 Respiratory Rate 18 18 18 Blood Pressure 104/51 L 105/53 L 107/54 L Pulse Oximetry 99 99 100 05/20/18 20:00 Temperature 99.3 F Pulse Rate 76 Respiratory Rate 18 Blood Pressure 113/57 L Pulse Oximetry 100 Intake & Output 05/20/18 05/20/18 05/21/18 06:59 18:59 06:59 Intake Total 2100 / 2100 1400 / 1400 3015 / 3015 Output Total 300 / 300 400 / 400 Balance 1800 / 1800 1000 / 1000 3015 / 3015 Weight 85.7 kg Intake: IV 2100 / 2100 1000 / 1000 3015 / 3015 NS Inj 1,000 ML @ 125 mls/hr IV 1000 / 1000 1000 / 1000 .CONT .Q8H [facility] Rx#:[id number] Alburx 5% Inj 500 ML @ 250 mls/ 500 / 500 hr IV.SIG ONCE ONE Rx#:[id number] Zosyn 4.5 GM Premix 4.5 gm In 100 / 100 100 ml @ 200 mls/hr IV.SIG STAT STA Rx#:[id number] NS Inj 1,000 ML @ Wide Open IV. 1999 SIG BOLUS SONNY Rx#:[id number] Intake (Blood Product) Amt 400 / 400 Rbc As-3 Leukoreduced Unit 0 / 0 [id number] Rbc As-3 Leukoreduced Unit 400 / 400 [id number] Output: Urine Amount (Catheter) 300 / 300 300 / 300 Indwelling Urethral Catheter 300 / 300 300 / 300 Gastric Drainage 100 / 100 Oral Orogastric Tube 100 / 100 Other: Date of Last Bowel Movement 05/20/18 05/20/18 # Bowel Movements 2 Weight On Admission 85.7 kg <Julián Navarro E - Last Filed: 05/20/18 21:37> Results - Labs CBC & Chem 7: 05/20/18 05:25 05/20/18 02:15 Labs: Laboratory Results - last 24 hr 05/20/18 05/20/18 05/20/18 02:15 02:15 02:15 WBC RBC Hgb POC Hgb (Calc) Hct POC Hct MCV MCH MCHC RDW Plt Count MPV Neut % (Auto) Lymph % (Auto) Crisp % (Auto) Eos % (Auto) Baso % (Auto) Neut # (Auto) Lymph # (Auto) Crisp # (Auto) Eos # (Auto) Baso # (Auto) WBC Differential Differential Comment PT INR APTT Puncture Site Patient Temperature O2 Saturation ABG pH ABG pCO2 ABG pO2 ABG HCO3 ABG O2 Content ABG Base Excess ABG Methemoglobin Spenser Test Hemoglobin Carboxyhemoglobin O2 Delivery Device Vent Setting Inspired O2 Critical Value POC Sodium Sodium 140 POC Potassium Potassium 4.5 POC Chloride Chloride 103 Carbon Dioxide 30.0 Anion Gap 7 POC BUN BUN 41 H Creatinine 2.25 H POC Creatinine Estimated GFR 22 L POC Glucose Random Glucose 198 H Lactic Acid Calcium 8.5 Total Bilirubin 0.6 AST 22 ALT 25 Alkaline Phosphatase 111 Troponin I Less than 0.02 L Total Protein 6.0 L Albumin 2.9 L Lipase 573 H TSH Urine Color Urine Clarity Urine pH Ur Specific [place] Urine Protein Urine Glucose (UA) Urine Ketones Urine Occult Blood Urine Nitrate Urine Bilirubin Urine Urobilinogen Ur Leukocyte Esterase Urine RBC Urine WBC Urine Mucus Micro UA Comment Ur Microscopic Review Urine Culture Comments Nasal Screen MRSA (PCR) Stl C.difficile Tox PCR St C. diff Tox Epid 027 Blood Type A Positive Blood Type Recheck Required Antibody Screen Positive H Antibody Identification Anti-E Rout Panel Path Interp Antigen Identification E Antigen - NEGATIVE MTS Gel Crossmatch See Detail Bld Prod Order Comment 05/20/18 05/20/18 05/20/18 02:20 02:20 02:20 WBC 17.4 H RBC 3.61 L Hgb 9.4 L POC Hgb (Calc) Hct 30.4 L POC Hct MCV 84.3 MCH 25.9 L MCHC 30.7 L RDW 18.6 H Plt Count 326 MPV 7.6 Neut % (Auto) 92.7 H Lymph % (Auto) 3.3 L Crisp % (Auto) 3.7 Eos % (Auto) 0.1 Baso % (Auto) 0.2 Neut # (Auto) 16.1 H Lymph # (Auto) 0.6 L Crisp # (Auto) 0.6 Eos # (Auto) 0.0 Baso # (Auto) 0.0 WBC Differential . Differential Comment Auto diff final PT 13.6 H INR 1.3 APTT 27.6 Puncture Site Patient Temperature O2 Saturation ABG pH ABG pCO2 ABG pO2 ABG HCO3 ABG O2 Content ABG Base Excess ABG Methemoglobin Spenser Test Hemoglobin Carboxyhemoglobin O2 Delivery Device Vent Setting Inspired O2 Critical Value POC Sodium Sodium POC Potassium Potassium POC Chloride Chloride Carbon Dioxide Anion Gap POC BUN BUN Creatinine POC Creatinine Estimated GFR POC Glucose Random Glucose Lactic Acid 1.8 Calcium Total Bilirubin AST ALT Alkaline Phosphatase Troponin I Total Protein Albumin Lipase TSH Urine Color Urine Clarity Urine pH Ur Specific [place] Urine Protein Urine Glucose (UA) Urine Ketones Urine Occult Blood Urine Nitrate Urine Bilirubin Urine Urobilinogen Ur Leukocyte Esterase Urine RBC Urine WBC Urine Mucus Micro UA Comment Ur Microscopic Review Urine Culture Comments Nasal Screen MRSA (PCR) Stl C.difficile Tox PCR St C. diff Tox Epid 027 Blood Type Blood Type Recheck Antibody Screen Antibody Identification Rout Panel Path Interp Antigen Identification MTS Gel Crossmatch Bld Prod Order Comment 05/20/18 05/20/18 05/20/18 02:20 03:05 04:40 WBC RBC Hgb POC Hgb (Calc) 9.5 L Hct POC Hct 28.0 L MCV MCH MCHC RDW Plt Count MPV Neut % (Auto) Lymph % (Auto) Crisp % (Auto) Eos % (Auto) Baso % (Auto) Neut # (Auto) Lymph # (Auto) Crisp # (Auto) Eos # (Auto) Baso # (Auto) WBC Differential Differential Comment PT INR APTT Puncture Site Patient Temperature O2 Saturation ABG pH ABG pCO2 ABG pO2 ABG HCO3 ABG O2 Content ABG Base Excess ABG Methemoglobin Spenser Test Hemoglobin Carboxyhemoglobin O2 Delivery Device Vent Setting Inspired O2 Critical Value POC Sodium 137 Sodium POC Potassium 4.4 Potassium POC Chloride 102 Chloride Carbon Dioxide Anion Gap POC BUN 38 H BUN Creatinine POC Creatinine 2.1 H Estimated GFR POC Glucose 198 H Random Glucose Lactic Acid Calcium Total Bilirubin AST ALT Alkaline Phosphatase Troponin I Total Protein Albumin Lipase TSH Urine Color Yellow Urine Clarity Clear Urine pH 6.0 Ur Specific [place] 1.011 Urine Protein Negative Urine Glucose (UA) Negative Urine Ketones Negative Urine Occult Blood Negative Urine Nitrate Negative Urine Bilirubin Negative Urine Urobilinogen Less than 2 Ur Leukocyte Esterase Negative Urine RBC Less than 1 Urine WBC 1 Urine Mucus Few H Micro UA Comment Culture not ind Ur Microscopic Review Not Reportable Urine Culture Comments Culture not ind Nasal Screen MRSA (PCR) Stl C.difficile Tox PCR Negative St C. diff Tox Epid 027 Negative Blood Type Blood Type Recheck Antibody Screen Antibody Identification Rout Panel Path Interp Antigen Identification MTS Gel Crossmatch Bld Prod Order Comment 05/20/18 05/20/18 05/20/18 05:25 05:51 06:30 WBC RBC Hgb 8.4 L POC Hgb (Calc) Hct 27.5 L POC Hct MCV MCH MCHC RDW Plt Count MPV Neut % (Auto) Lymph % (Auto) Crisp % (Auto) Eos % (Auto) Baso % (Auto) Neut # (Auto) Lymph # (Auto) Crisp # (Auto) Eos # (Auto) Baso # (Auto) WBC Differential Differential Comment PT INR APTT Puncture Site Left radial Patient Temperature 98.6 O2 Saturation 97 ABG pH 7.22 L* ABG pCO2 65 H* ABG pO2 338 H ABG HCO3 25 ABG O2 Content 12.2 ABG Base Excess -1.6 ABG Methemoglobin 1.0 Spenser Test Present Hemoglobin 8.3 L Carboxyhemoglobin 1.6 O2 Delivery Device Vent Vent Setting Prvc/ac Inspired O2 100 Critical Value Yes POC Sodium Sodium POC Potassium Potassium POC Chloride Chloride Carbon Dioxide Anion Gap POC BUN BUN Creatinine POC Creatinine Estimated GFR POC Glucose Random Glucose Lactic Acid Calcium Total Bilirubin AST ALT Alkaline Phosphatase Troponin I Total Protein Albumin Lipase TSH Urine Color Urine Clarity Urine pH Ur Specific [place] Urine Protein Urine Glucose (UA) Urine Ketones Urine Occult Blood Urine Nitrate Urine Bilirubin Urine Urobilinogen Ur Leukocyte Esterase Urine RBC Urine WBC Urine Mucus Micro UA Comment Ur Microscopic Review Urine Culture Comments Nasal Screen MRSA (PCR) Mrsa detected Stl C.difficile Tox PCR St C. diff Tox Epid 027 Blood Type Blood Type Recheck Antibody Screen Antibody Identification Rout Panel Path Interp Antigen Identification MTS Gel Crossmatch Bld Prod Order Comment 05/20/18 05/20/18 05/20/18 07:13 07:53 07:55 WBC RBC Hgb POC Hgb (Calc) Hct POC Hct MCV MCH MCHC RDW Plt Count MPV Neut % (Auto) Lymph % (Auto) Crisp % (Auto) Eos % (Auto) Baso % (Auto) Neut # (Auto) Lymph # (Auto) Crisp # (Auto) Eos # (Auto) Baso # (Auto) WBC Differential Differential Comment PT INR APTT Puncture Site Patient Temperature O2 Saturation ABG pH ABG pCO2 ABG pO2 ABG HCO3 ABG O2 Content ABG Base Excess ABG Methemoglobin Spenser Test Hemoglobin Carboxyhemoglobin O2 Delivery Device Vent Setting Inspired O2 Critical Value POC Sodium Sodium POC Potassium Potassium POC Chloride Chloride Carbon Dioxide Anion Gap POC BUN BUN Creatinine POC Creatinine Estimated GFR POC Glucose 209 H Random Glucose Lactic Acid Calcium Total Bilirubin AST ALT Alkaline Phosphatase Troponin I Less than 0.02 L Total Protein Albumin Lipase TSH Urine Color Urine Clarity Urine pH Ur Specific [place] Urine Protein Urine Glucose (UA) Urine Ketones Urine Occult Blood Urine Nitrate Urine Bilirubin Urine Urobilinogen Ur Leukocyte Esterase Urine RBC Urine WBC Urine Mucus Micro UA Comment Ur Microscopic Review Urine Culture Comments Nasal Screen MRSA (PCR) Stl C.difficile Tox PCR St C. diff Tox Epid 027 Blood Type Blood Type Recheck Antibody Screen Antibody Identification Rout Panel Path Interp Antigen Identification MTS Gel Crossmatch See Detail Bld Prod Order Comment 05/20/18 07:55 WBC RBC Hgb POC Hgb (Calc) Hct POC Hct MCV MCH MCHC RDW Plt Count MPV Neut % (Auto) Lymph % (Auto) Crisp % (Auto) Eos % (Auto) Baso % (Auto) Neut # (Auto) Lymph # (Auto) Crisp # (Auto) Eos # (Auto) Baso # (Auto) WBC Differential Differential Comment PT INR APTT Puncture Site Patient Temperature O2 Saturation ABG pH ABG pCO2 ABG pO2 ABG HCO3 ABG O2 Content ABG Base Excess ABG Methemoglobin Spenser Test Hemoglobin Carboxyhemoglobin O2 Delivery Device Vent Setting Inspired O2 Critical Value POC Sodium Sodium POC Potassium Potassium POC Chloride Chloride Carbon Dioxide Anion Gap POC BUN BUN Creatinine POC Creatinine Estimated GFR POC Glucose Random Glucose Lactic Acid Calcium Total Bilirubin AST ALT Alkaline Phosphatase Troponin I Total Protein Albumin Lipase TSH 1.770 Urine Color Urine Clarity Urine pH Ur Specific [place] Urine Protein Urine Glucose (UA) Urine Ketones Urine Occult Blood Urine Nitrate Urine Bilirubin Urine Urobilinogen Ur Leukocyte Esterase Urine RBC Urine WBC Urine Mucus Micro UA Comment Ur Microscopic Review Urine Culture Comments Nasal Screen MRSA (PCR) Stl C.difficile Tox PCR St C. diff Tox Epid 027 Blood Type Blood Type Recheck Antibody Screen Antibody Identification Rout Panel Path Interp Antigen Identification MTS Gel Crossmatch Bld Prod Order Comment - Imaging Impressions Abdomen X-Ray 05/20/18 02:10 CONCLUSION: Nonspecific, benign abdomen appearance. Abdomen/Pelvis CT 05/20/18 02:10 CONCLUSION: Rectal fecal impaction and likely mild proctitis Chest X-Ray 05/20/18 02:10 CONCLUSION: Negative examination. Chest X-Ray 05/20/18 05:29 CONCLUSION: Satisfactory endotracheal tube positioning. Slight bibasilar parenchymal opacities. Head CT 05/20/18 05:44 CONCLUSION: No acute intracranial findings . Chest X-Ray 05/20/18 08:57 CONCLUSION: 1. Left IJ central line in the mid SVC without pneumothorax. <Gladys Yuan - Last Filed: 05/20/18 12:02> - Labs CBC & Chem 7: 05/20/18 15:55 05/20/18 12:12 Labs: Laboratory Results - last 24 hr 05/20/18 05/20/18 05/20/18 02:15 02:15 02:15 WBC RBC Hgb POC Hgb (Calc) Hct POC Hct MCV MCH MCHC RDW Plt Count MPV Neut % (Auto) Lymph % (Auto) Crisp % (Auto) Eos % (Auto) Baso % (Auto) Neut # (Auto) Lymph # (Auto) Crisp # (Auto) Eos # (Auto) Baso # (Auto) WBC Differential Differential Comment PT INR APTT Puncture Site Patient Temperature O2 Saturation ABG pH ABG pCO2 ABG pO2 ABG HCO3 ABG O2 Content ABG Base Excess ABG Methemoglobin Spenser Test Hemoglobin Carboxyhemoglobin O2 Delivery Device Vent Setting Inspired O2 Critical Value POC Sodium Sodium 140 POC Potassium Potassium 4.5 POC Chloride Chloride 103 Carbon Dioxide 30.0 Anion Gap 7 POC BUN BUN 41 H Creatinine 2.25 H POC Creatinine Estimated GFR 22 L POC Glucose Random Glucose 198 H Lactic Acid Calcium 8.5 Total Bilirubin 0.6 AST 22 ALT 25 Alkaline Phosphatase 111 Troponin I Less than 0.02 L Total Protein 6.0 L Albumin 2.9 L Lipase 573 H TSH Urine Color Urine Clarity Urine pH Ur Specific [place] Urine Protein Urine Glucose (UA) Urine Ketones Urine Occult Blood Urine Nitrate Urine Bilirubin Urine Urobilinogen Ur Leukocyte Esterase Urine RBC Urine WBC Urine Mucus Micro UA Comment Ur Microscopic Review Urine Culture Comments Ur Random Creatinine Ur Random Sodium Nasal Screen MRSA (PCR) Stl C.difficile Tox PCR St C. diff Tox Epid 027 Blood Type A Positive Blood Type Recheck Required Antibody Screen Positive H Antibody Identification Anti-E Rout Panel Path Interp Antigen Identification E Antigen - NEGATIVE MTS Gel Crossmatch See Detail Bld Prod Order Comment 05/20/18 05/20/18 05/20/18 02:20 02:20 02:20 WBC 17.4 H RBC 3.61 L Hgb 9.4 L POC Hgb (Calc) Hct 30.4 L POC Hct MCV 84.3 MCH 25.9 L MCHC 30.7 L RDW 18.6 H Plt Count 326 MPV 7.6 Neut % (Auto) 92.7 H Lymph % (Auto) 3.3 L Crisp % (Auto) 3.7 Eos % (Auto) 0.1 Baso % (Auto) 0.2 Neut # (Auto) 16.1 H Lymph # (Auto) 0.6 L Crisp # (Auto) 0.6 Eos # (Auto) 0.0 Baso # (Auto) 0.0 WBC Differential . Differential Comment Auto diff final PT 13.6 H INR 1.3 APTT 27.6 Puncture Site Patient Temperature O2 Saturation ABG pH ABG pCO2 ABG pO2 ABG HCO3 ABG O2 Content ABG Base Excess ABG Methemoglobin Spenser Test Hemoglobin Carboxyhemoglobin O2 Delivery Device Vent Setting Inspired O2 Critical Value POC Sodium Sodium POC Potassium Potassium POC Chloride Chloride Carbon Dioxide Anion Gap POC BUN BUN Creatinine POC Creatinine Estimated GFR POC Glucose Random Glucose Lactic Acid 1.8 Calcium Total Bilirubin AST ALT Alkaline Phosphatase Troponin I Total Protein Albumin Lipase TSH Urine Color Urine Clarity Urine pH Ur Specific [place] Urine Protein Urine Glucose (UA) Urine Ketones Urine Occult Blood Urine Nitrate Urine Bilirubin Urine Urobilinogen Ur Leukocyte Esterase Urine RBC Urine WBC Urine Mucus Micro UA Comment Ur Microscopic Review Urine Culture Comments Ur Random Creatinine Ur Random Sodium Nasal Screen MRSA (PCR) Stl C.difficile Tox PCR St C. diff Tox Epid 027 Blood Type Blood Type Recheck Antibody Screen Antibody Identification Rout Panel Path Interp Antigen Identification MTS Gel Crossmatch Bld Prod Order Comment 05/20/18 05/20/18 05/20/18 02:20 03:05 04:40 WBC RBC Hgb POC Hgb (Calc) 9.5 L Hct POC Hct 28.0 L MCV MCH MCHC RDW Plt Count MPV Neut % (Auto) Lymph % (Auto) Cris[place] % (Auto) Eos % (Auto) Baso % (Auto) Neut # (Auto) Lymph # (Auto) Crisp # (Auto) Eos # (Auto) Baso # (Auto) WBC Differential Differential Comment PT INR APTT Puncture Site Patient Temperature O2 Saturation ABG pH ABG pCO2 ABG pO2 ABG HCO3 ABG O2 Content ABG Base Excess ABG Methemoglobin Spenser Test Hemoglobin Carboxyhemoglobin O2 Delivery Device Vent Setting Inspired O2 Critical Value POC Sodium 137 Sodium POC Potassium 4.4 Potassium POC Chloride 102 Chloride Carbon Dioxide Anion Gap POC BUN 38 H BUN Creatinine POC Creatinine 2.1 H Estimated GFR POC Glucose 198 H Random Glucose Lactic Acid Calcium Total Bilirubin AST ALT Alkaline Phosphatase Troponin I Total Protein Albumin Lipase TSH Urine Color Yellow Urine Clarity Clear Urine pH 6.0 Ur Specific [place] 1.011 Urine Protein Negative Urine Glucose (UA) Negative Urine Ketones Negative Urine Occult Blood Negative Urine Nitrate Negative Urine Bilirubin Negative Urine Urobilinogen Less than 2 Ur Leukocyte Esterase Negative Urine RBC Less than 1 Urine WBC 1 Urine Mucus Few H Micro UA Comment Culture not ind Ur Microscopic Review Not Reportable Urine Culture Comments Culture not ind Ur Random Creatinine Ur Random Sodium Nasal Screen MRSA (PCR) Stl C.difficile Tox PCR Negative St C. diff Tox Epid 027 Negative Blood Type Blood Type Recheck Antibody Screen Antibody Identification Rout Panel Path Interp Antigen Identification MTS Gel Crossmatch Bld Prod Order Comment 05/20/18 05/20/18 05/20/18 05:25 05:30 05:51 WBC RBC Hgb 8.4 L POC Hgb (Calc) Hct 27.5 L POC Hct MCV MCH MCHC RDW Plt Count MPV Neut % (Auto) Lymph % (Auto) Cris[place] % (Auto) Eos % (Auto) Baso % (Auto) Neut # (Auto) Lymph # (Auto) Cris[place] # (Auto) Eos # (Auto) Baso # (Auto) WBC Differential Differential Comment PT INR APTT Puncture Site Left radial Patient Temperature 98.6 O2 Saturation 97 ABG pH 7.22 L* ABG pCO2 65 H* ABG pO2 338 H ABG HCO3 25 ABG O2 Content 12.2 ABG Base Excess -1.6 ABG Methemoglobin 1.0 Spenser Test Present Hemoglobin 8.3 L Carboxyhemoglobin 1.6 O2 Delivery Device Vent Vent Setting Prvc/ac Inspired O2 100 Critical Value Yes POC Sodium Sodium POC Potassium Potassium POC Chloride Chloride Carbon Dioxide Anion Gap POC BUN BUN Creatinine POC Creatinine Estimated GFR POC Glucose Random Glucose Lactic Acid Calcium Total Bilirubin AST ALT Alkaline Phosphatase Troponin I Total Protein Albumin Lipase TSH Urine Color Urine Clarity Urine pH Ur Specific [place] Urine Protein Urine Glucose (UA) Urine Ketones Urine Occult Blood Urine Nitrate Urine Bilirubin Urine Urobilinogen Ur Leukocyte Esterase Urine RBC Urine WBC Urine Mucus Micro UA Comment Ur Microscopic Review Urine Culture Comments Ur Random Creatinine 115 Ur Random Sodium 7 Nasal Screen MRSA (PCR) Stl C.difficile Tox PCR St C. diff Tox Epid 027 Blood Type Blood Type Recheck Antibody Screen Antibody Identification Rout Panel Path Interp Antigen Identification MTS Gel Crossmatch Bld Prod Order Comment 05/20/18 05/20/18 05/20/18 06:30 07:13 07:53 WBC RBC Hgb POC Hgb (Calc) Hct POC Hct MCV MCH MCHC RDW Plt Count MPV Neut % (Auto) Lymph % (Auto) [place] % (Auto) Eos % (Auto) Baso % (Auto) Neut # (Auto) Lymph # (Auto) [place] # (Auto) Eos # (Auto) Baso # (Auto) WBC Differential Differential Comment PT INR APTT Puncture Site Patient Temperature O2 Saturation ABG pH ABG pCO2 ABG pO2 ABG HCO3 ABG O2 Content ABG Base Excess ABG Methemoglobin Spenser Test Hemoglobin Carboxyhemoglobin O2 Delivery Device Vent Setting Inspired O2 Critical Value POC Sodium Sodium POC Potassium Potassium POC Chloride Chloride Carbon Dioxide Anion Gap POC BUN BUN Creatinine POC Creatinine Estimated GFR POC Glucose 209 H Random Glucose Lactic Acid Calcium Total Bilirubin AST ALT Alkaline Phosphatase Troponin I Total Protein Albumin Lipase TSH Urine Color Urine Clarity Urine pH Ur Specific [place] Urine Protein Urine Glucose (UA) Urine Ketones Urine Occult Blood Urine Nitrate Urine Bilirubin Urine Urobilinogen Ur Leukocyte Esterase Urine RBC Urine WBC Urine Mucus Micro UA Comment Ur Microscopic Review Urine Culture Comments Ur Random Creatinine Ur Random Sodium Nasal Screen MRSA (PCR) Mrsa detected Stl C.difficile Tox PCR St C. diff Tox Epid 027 Blood Type Blood Type Recheck Antibody Screen Antibody Identification Rout Panel Path Interp Antigen Identification MTS Gel Crossmatch See Detail Bld Prod Order Comment 05/20/18 05/20/18 05/20/18 07:55 07:55 11:45 WBC RBC Hgb POC Hgb (Calc) Hct POC Hct MCV MCH MCHC RDW Plt Count MPV Neut % (Auto) Lymph % (Auto) Cris[place] % (Auto) Eos % (Auto) Baso % (Auto) Neut # (Auto) Lymph # (Auto) Cris[place] # (Auto) Eos # (Auto) Baso # (Auto) WBC Differential Differential Comment PT INR APTT Puncture Site Right radial Patient Temperature 98.6 O2 Saturation 91 ABG pH 7.36 L ABG pCO2 42 ABG pO2 68 ABG HCO3 23 ABG O2 Content 13.4 ABG Base Excess -1.5 ABG Methemoglobin 1.8 Spenser Test Present Hemoglobin 10.4 L Carboxyhemoglobin 1.7 O2 Delivery Device Ventilator Vent Setting [id number] Inspired O2 35 Critical Value No POC Sodium Sodium POC Potassium Potassium POC Chloride Chloride Carbon Dioxide Anion Gap POC BUN BUN Creatinine POC Creatinine Estimated GFR POC Glucose Random Glucose Lactic Acid Calcium Total Bilirubin AST ALT Alkaline Phosphatase Troponin I Less than 0.02 L Total Protein Albumin Lipase TSH 1.770 Urine Color Urine Clarity Urine pH Ur Specific [place] Urine Protein Urine Glucose (UA) Urine Ketones Urine Occult Blood Urine Nitrate Urine Bilirubin Urine Urobilinogen Ur Leukocyte Esterase Urine RBC Urine WBC Urine Mucus Micro UA Comment Ur Microscopic Review Urine Culture Comments Ur Random Creatinine Ur Random Sodium Nasal Screen MRSA (PCR) Stl C.difficile Tox PCR St C. diff Tox Epid 027 Blood Type Blood Type Recheck Antibody Screen Antibody Identification Rout Panel Path Interp Antigen Identification MTS Gel Crossmatch Bld Prod Order Comment 05/20/18 05/20/18 05/20/18 12:12 12:12 12:30 WBC RBC Hgb 10.4 L D POC Hgb (Calc) Hct 32.4 L POC Hct MCV MCH MCHC RDW Plt Count MPV Neut % (Auto) Lymph % (Auto) [place] % (Auto) Eos % (Auto) Baso % (Auto) Neut # (Auto) Lymph # (Auto) [place] # (Auto) Eos # (Auto) Baso # (Auto) WBC Differential Differential Comment PT INR APTT Puncture Site Patient Temperature O2 Saturation ABG pH ABG pCO2 ABG pO2 ABG HCO3 ABG O2 Content ABG Base Excess ABG Methemoglobin Spenser Test Hemoglobin Carboxyhemoglobin O2 Delivery Device Vent Setting Inspired O2 Critical Value POC Sodium Sodium 141 POC Potassium Potassium 4.1 POC Chloride Chloride 106 Carbon Dioxide 25.0 Anion Gap 10 POC BUN BUN 44 H Creatinine 2.14 H POC Creatinine Estimated GFR 23 L POC Glucose 231 H Random Glucose 229 H Lactic Acid Calcium 7.5 L D Total Bilirubin AST ALT Alkaline Phosphatase Troponin I Less than 0.02 L Total Protein Albumin Lipase TSH Urine Color Urine Clarity Urine pH Ur Specific [place] Urine Protein Urine Glucose (UA) Urine Ketones Urine Occult Blood Urine Nitrate Urine Bilirubin Urine Urobilinogen Ur Leukocyte Esterase Urine RBC Urine WBC Urine Mucus Micro UA Comment Ur Microscopic Review Urine Culture Comments Ur Random Creatinine Ur Random Sodium Nasal Screen MRSA (PCR) Stl C.difficile Tox PCR St C. diff Tox Epid 027 Blood Type Blood Type Recheck Antibody Screen Antibody Identification Rout Panel Path Interp Antigen Identification MTS Gel Crossmatch Bld Prod Order Comment 05/20/18 05/20/18 15:55 16:34 WBC RBC Hgb 10.2 L POC Hgb (Calc) Hct 32.3 L POC Hct MCV MCH MCHC RDW Plt Count MPV Neut % (Auto) Lymph % (Auto) [place] % (Auto) Eos % (Auto) Baso % (Auto) Neut # (Auto) Lymph # (Auto) [place] # (Auto) Eos # (Auto) Baso # (Auto) WBC Differential Differential Comment PT INR APTT Puncture Site Patient Temperature O2 Saturation ABG pH ABG pCO2 ABG pO2 ABG HCO3 ABG O2 Content ABG Base Excess ABG Methemoglobin Spenser Test Hemoglobin Carboxyhemoglobin O2 Delivery Device Vent Setting Inspired O2 Critical Value POC Sodium Sodium POC Potassium Potassium POC Chloride Chloride Carbon Dioxide Anion Gap POC BUN BUN Creatinine POC Creatinine Estimated GFR POC Glucose 209 H Random Glucose Lactic Acid Calcium Total Bilirubin AST ALT Alkaline Phosphatase Troponin I Total Protein Albumin Lipase TSH Urine Color Urine Clarity Urine pH Ur Specific [place] Urine Protein Urine Glucose (UA) Urine Ketones Urine Occult Blood Urine Nitrate Urine Bilirubin Urine Urobilinogen Ur Leukocyte Esterase Urine RBC Urine WBC Urine Mucus Micro UA Comment Ur Microscopic Review Urine Culture Comments Ur Random Creatinine Ur Random Sodium Nasal Screen MRSA (PCR) Stl C.difficile Tox PCR St C. diff Tox Epid 027 Blood Type Blood Type Recheck Antibody Screen Antibody Identification Rout Panel Path Interp Antigen Identification MTS Gel Crossmatch Bld Prod Order Comment - Imaging Impressions Abdomen X-Ray 05/20/18 02:10 CONCLUSION: Nonspecific, benign abdomen appearance. Abdomen/Pelvis CT 05/20/18 02:10 CONCLUSION: Rectal fecal impaction and likely mild proctitis Chest X-Ray 05/20/18 02:10 CONCLUSION: Negative examination. Chest X-Ray 05/20/18 05:29 CONCLUSION: Satisfactory endotracheal tube positioning. Slight bibasilar parenchymal opacities. Head CT 05/20/18 05:44 CONCLUSION: No acute intracranial findings . Chest X-Ray 05/20/18 08:57 CONCLUSION: 1. Left IJ central line in the mid SVC without pneumothorax. <Julián Navarro - Last Filed: 05/20/18 21:37> Assessment and Plan - Plan This is a 68-year-old female who [facility] on [facility]2018 according to the record patient was not in respiratory distress on arrival but she was hypotensive and they noted dark bloody stools. Patient was admitted to the intensive care area and is now on ventilator management as well as altered mental status. Patient is currently receiving EEG and is been ruled out for possible CVA secondary to her initial lethargy. Abdominal pain noted per the patient initially on admission according to the record. This could be related to her constipation, proctitis Bloody stools , patient did experience disimpaction and due to her history of Xarelto is high risk for GI bleed or possible hemorrhoid bleeding, versus diverticular. Fecal impaction, disimpacted on admission with hard stool CT scan did note some proctitis History of PE and currently patient is on Xarelto Current hemoglobin was initially 9.4 now 8.4, PT/INR 1.3, bilirubin LFTs and alkaline phosphatase are normal. Patient had CT scan of the abdomen which showed mild proctitis. Currently patient remains critically ill with ventilator management as well as her change in neuro status. Most of the information is being gathered from the record and/or the nursing staff caring for her. Patient currently has significant neurological changes in his receiving EEG for now CVA is been ruled out Plan Diet currently n.p.o., consider nutritional feedings once patient is more stable PPI IV Hold Xarelto Zofran as needed Monitor labs with special attention to hemoglobin Monitor for any further obvious rectal bleeding and report to GI Transfuse as needed Further recommendations to follow, patient remains critically ill and is not stable for any further procedures for now, will consider EGD/colonoscopy when stable Patient was seen per myself and Dr. Navarro, note was written on his behalf <Gladys Yuan M - Last Filed: 05/20/18 12:02> - Attending Attestation Patient seen and examined Patient with known history of PE on Xarelto Currently in respiratory failure apparently had fecal impaction and was disimpacted in the ED Subsequently she has had some hematochezia and she went into respiratory failure and is currently intubated At this point there is no active bleeding We will continue with current supportive care monitor labs and transfuse as needed We will need to allow the effects of Xarelto to her off and thereafter patient HAVE colonoscopy at some point This could happen either as an inpatient prior to discharge or if actively bleeding or even on outpatient basis Further recommendations she will depend on her hospital course <Julián Navarro - Last Filed: 05/20/18 21:37>
[2018-05-20] MEDS: Propofol 1000 mg/100 ml Inj 1,000 MG/100 ML BOTTLE IV.CONT PRN (12:13)
[2018-05-20 12:55] LABS: Hematocrit 32.4 % (35.0-46.0); Hemoglobin 10.4 gm/dL (11.6-15.3)
[2018-05-20 13:21] LABS: Anion Gap 10 meq/L (5-15); Blood Urea Nitrogen 44 mg/dL (7-18); Calcium 7.5 mg/dL (8.5-10.1); Chloride 106 meq/L (98-107); Glomerular Filtration Rate 23 mL/min (>89); Glucose,Random 229 mg/dL (74-106); Potassium 4.1 meq/L (3.5-5.1); Sodium 141 meq/L (136-145)
[2018-05-20] MEDS: Hydrocortisone Sod Succinate 100 MG Vial IV.PUSH SCH ×2 (14:49→21:35)
[2018-05-20 16:12] LABS: Hematocrit 32.3 % (35.0-46.0); Hemoglobin 10.2 gm/dL (11.6-15.3)
[2018-05-20 17:34] LABS: Creatinine,Urine Random 115 mg/dL (27-300)
--- NOTE | 2018-05-20 20:02 | ECG ---
Date Performed: 05/20/2018 Time Performed: 12:10:51 PTAGE: 68 years EKG: Sinus rhythm LOW QRS VOLTAGE IN EXTREMITY LEADS ABNORMAL ECG PREVIOUS TRACING : 05/20/2018 06.07 Since the previous tracing, no significant change noted DOCTOR: Tahir Leung Interpretating Date/Time 05/20/2018 20:00:21
--- NOTE | 2018-05-20 20:21 | ECG ---
Date Performed: 05/20/2018 Time Performed: 05:54:56 PTAGE: 68 years EKG: Sinus rhythm WITH OCCASIONAL VENTRICULAR PREMATURE COMPLEXES LOW QRS VOLTAGE IN EXTREMITY LEADS NONSPECIFIC T-WAV E ABNORMALITY ABNORMAL ECG PREVIOUS TRACING : 05/20/2018 02.15 Since the previous tracing, no significant change noted DOCTOR: Tahir Leung Interpretating Date/Time 05/20/2018 20:20:09
--- NOTE | 2018-05-20 20:21 | ECG ---
Date Performed: 05/20/2018 Time Performed: 06:07:38 PTAGE: 68 years EKG: Sinus rhythm LOW QRS VOLTAGE IN EXTREMITY LEADS NONSPECIFIC ST & T-WAVE ABNORMALITY ABNORMAL ECG PREVIOUS TRACING : 05/20/2018 05.54 Since the previous tracing, no significant change noted DOCTOR: Tahir Leung Interpretating Date/Time 05/20/2018 20:19:29
--- NOTE | 2018-05-20 20:25 | ECG ---
Date Performed: 05/20/2018 Time Performed: 02:15:15 PTAGE: 68 years EKG: Sinus rhythm LOW QRS VOLTAGE IN EXTREMITY LEADS NONSPECIFIC T-WAVE ABNORMALITY BORDERLINE ECG PREVIOUS TRACING : 05/20/2018 02.13 Compared to previous tracing, T wave changes less prominen t DOCTOR: Tahir Leung Interpretating Date/Time 05/20/2018 20:25:03
[2018-05-20 21:57] LABS: Hematocrit 31.5 % (35.0-46.0); Hemoglobin 10.2 gm/dL (11.6-15.3)
--- NOTE | 2018-05-20 22:05 | MG ---
cc: Josué Holly MD EEG RECORD NUMBER: [id number] Increased myogenic electrical artifact occurring almost throughout the recording. [place] through the recording, artifact reduced followed by generalized theta delta frequencies, some spindle activity suggestive of stage II sleep, poorly formed sleep architecture overall. Limited drive by photic stimulation. Single-lead EKG showing sinus rhythm. INTERPRETATION: Significant artifact during the first half of the recording followed by what appeared to be mild encephalopathy in sleep state. Clinical correlation. Josué Holly MD MG/rw/do , 09:39 PM , 09:47 PM
[2018-05-21] MEDS: Insulin NovoLOG Aspart Correctional Sugar Inj SQ SCH ×4 (00:54→18:29)
[2018-05-21] MEDS: Oral Hygiene Kit OROPHARYNG SCH ×4 (01:38→18:26)
[2018-05-21] MEDS: Propofol 1000 mg/100 ml Inj 1,000 MG/100 ML BOTTLE IV.CONT PRN (02:29)
[2018-05-21] MEDS ORDERED: Chlorhexidine Gluconate 2% 1 Pack (2 Cloths) TOPICAL PRN (04:00)
[2018-05-21 05:10] LABS: Baso % (Auto) 0.1 % (0.0-2.0); Hematocrit 30.8 % (35.0-46.0); Hemoglobin 10.1 gm/dL (11.6-15.3); Lymph # (Auto) 0.7 th/mm3 (1.0-4.8); Mean Corpuscular HGB Conc 32.9 % (32.0-36.0); Mean Corpuscular Hemoglobin 27.7 pg (27.0-34.0); Mean Corpuscular Volume 84.4 fL (80.0-100.0); Mean Platelet Volume 7.8 fL (7.0-11.0); Mono # (Auto) 0.6 th/mm3 (0.0-0.9); Mono % (Auto) 4.5 % (0.0-8.0); Neut # (Auto) 12.9 th/mm3 (1.8-7.7); Neut % (Auto) 90.4 % (16.0-70.0); Platelet Count 255 th/mm3 (150-450); Red Blood Count 3.65 mil/mm3 (4.00-5.30); Red Cell Distribution Width 17.1 % (11.6-17.2); White Blood Count 14.2 th/mm3 (4.0-11.0)
[2018-05-21 05:21] LABS: Activated Partial Thrombo Time 25.4 sec (24.3-30.1); INR 1.1 Ratio; Prothrombin Time 11.1 sec (9.8-11.6)
[2018-05-21] MEDS: Chlorhexidine Gluconate 2% 1 Pack (2 Cloths) TOPICAL SCH (05:42)
[2018-05-21] MEDS: Sod Chloride 0.9% Inj 1,000 ML IV.CONT SCH ×3 (05:42→21:55)
[2018-05-21] MEDS: Hydrocortisone Sod Succinate 100 MG Vial IV.PUSH SCH ×3 (05:43→21:57)
[2018-05-21 06:06] LABS: Albumin 2.6 g/dL (3.4-5.0); Calcium 7.3 mg/dL (8.5-10.1); Magnesium 4.3 mg/dL (1.5-2.5); Phosphorus 3.8 mg/dL (2.5-4.9); Potassium 3.7 meq/L (3.5-5.1); Total Protein 5.6 g/dL (6.4-8.2)
[2018-05-21] MEDS: Senna/Docusate Sodium 8.6/50 MG Tablet PO SCH ×2 (08:09→21:56)
[2018-05-21] MEDS: Pantoprazole Inj 40 MG Vial IV.PUSH SCH ×2 (08:09→21:56)
[2018-05-21] MEDS: Chlorhexidine 0.12% Oral Kit 15 ML UDC OROPHARYNG SCH ×2 (08:09→21:55)
[2018-05-21] MEDS: Budesonide-Formoterol 160/4.5 MCG 6 GM Inhaler INH SCH ×2 (08:10→21:57)
[2018-05-21] MEDS: Polyvinyl Alcohol/Povidone PF Opth Drops 0.4 ML Dropperette EACH EYE SCH ×2 (08:10→21:57)
--- NOTE | 2018-05-21 09:32 | P.PNCC ---
Subjective Subjective Remarks/Hospital Course: 68-year-old female, with past medical history significant for COPD, PE, on blood thinners, presented initially with complaint of GI bleed. Per EMS report they were called to the residential for respiratory distress. On their arrival they state that she was not in respiratory distress but she was hypotensive with a systolic blood pressure in the 60s and delayed cap refill. Blood sugar was within normal limits. They noted dark bloody stools. They were able to secure an IV and route did give her about 350 cc of fluids prior to arrival. Her last blood pressure prior to arrival was in the 110s systolic. Patient was able to say that her abdomen hurts but was not answering too many more questions, she denied chest pain, shortness of breath. The CT of the abdomen showed only large amount of stool in the bowel and the patient passed a large volume of stool after manual disimpaction. Shortly after this she has lost consciousness, became unresponsive with GCS of 3 requiring emergent intubation for an airway protection by ED attending. 05/20: Patient still became more hypotensive. Receiving 2 units PRBCs and K Centra 4500 units x1 now. Minimal response on the ventilator. Did withdraw to vigorous stimuli/sternal rub. Afebrile. Subjective 05/21: Currently resting in bed in no acute distress. Plan for extubation today. Hemoglobins remained stable. Objective Vital Signs / I&O: Vital Signs 05/20/18 09:35 05/20/18 10:00 05/20/18 10:30 Temperature 97.7 F Pulse Rate 82 81 79 Respiratory Rate 18 18 18 Blood Pressure 121/57 L 95/47 L 125/58 L Pulse Oximetry 100 98 100 05/20/18 10:35 05/20/18 10:42 05/20/18 10:50 Temperature 97.7 F 97.4 F L 98.4 F Pulse Rate 79 79 77 Respiratory Rate 18 18 18 Blood Pressure 125/58 L 125/58 L 126/59 L Pulse Oximetry 100 94 L 99 05/20/18 11:00 05/20/18 11:30 05/20/18 12:00 Temperature 98.4 F Pulse Rate 77 76 84 Respiratory Rate 18 18 18 Blood Pressure 126/59 L 132/63 158/68 H Pulse Oximetry 99 96 94 L 05/20/18 12:52 05/20/18 13:00 05/20/18 13:01 Temperature Pulse Rate 78 79 Respiratory Rate 18 18 18 Blood Pressure 117/56 L Pulse Oximetry 95 95 95 05/20/18 14:00 05/20/18 15:00 05/20/18 16:00 Temperature 97.7 F 98.1 F Pulse Rate 79 80 79 Respiratory Rate 18 18 18 Blood Pressure 113/53 L 114/53 L 116/57 L Pulse Oximetry 95 95 96 05/20/18 16:18 05/20/18 17:00 05/20/18 18:00 Temperature Pulse Rate 73 74 73 Respiratory Rate 16 18 18 Blood Pressure 104/51 L 105/53 L Pulse Oximetry 96 99 99 05/20/18 19:00 05/20/18 20:00 05/20/18 20:27 Temperature 99.3 F Pulse Rate 73 76 Respiratory Rate 18 18 18 Blood Pressure 107/54 L 113/57 L Pulse Oximetry 100 100 100 05/20/18 20:28 05/20/18 21:00 05/20/18 22:00 Temperature Pulse Rate 76 79 79 Respiratory Rate 18 18 18 Blood Pressure 120/56 L 123/57 L Pulse Oximetry 100 100 05/20/18 23:00 05/20/18 23:35 05/21/18 00:00 Temperature 99.9 F H Pulse Rate 79 79 79 Respiratory Rate 18 18 18 Blood Pressure 124/56 L 123/60 Pulse Oximetry 100 100 100 05/21/18 01:00 05/21/18 02:00 05/21/18 02:11 Temperature Pulse Rate 75 101 H 97 H Respiratory Rate 18 21 18 Blood Pressure 118/57 L 183/79 H Pulse Oximetry 100 79 L 95 05/21/18 03:00 05/21/18 03:08 05/21/18 04:00 Temperature Pulse Rate 85 85 87 Respiratory Rate 18 18 18 Blood Pressure 138/61 145/65 H Pulse Oximetry 97 96 05/21/18 05:00 05/21/18 06:00 05/21/18 07:00 Temperature Pulse Rate 83 77 79 Respiratory Rate 18 18 18 Blood Pressure 132/60 136/64 145/66 H Pulse Oximetry 100 100 100 05/21/18 07:28 Temperature Pulse Rate 96 H Respiratory Rate 14 Blood Pressure Pulse Oximetry Intake & Output 05/20/18 05/21/18 05/21/18 18:59 06:59 18:59 Intake Total 1800 / 1800 4365 / 4365 Output Total 400 / 400 600 / 600 Balance 1400 / 1400 3765 / 3765 Weight 88.8 kg Intake: IV 1000 / 1000 4365 / 4365 Diprivan 1000 mg/100 ml Inj 1, 100 / 100 000 mg In 100 ml @ 5 MCG/KG/MIN 2.571 mls/hr IV.CONT TITRATE PRN Rx#:[id number] NS Inj 1,000 ML @ 125 mls/hr IV 1000 / 1000 1999 / 1999 .CONT .Q8H ANNE Rx#:[id number] Alburx 5% Inj 500 ML @ 250 mls/ 500 / 500 hr IV.SIG ONCE ONE Rx#:[id number] Intake (Blood Product) Amt 800 / 800 Rbc As-3 Leukoreduced Unit 400 / 400 [id number] Rbc As-3 Leukoreduced Unit 0 / 0 [id number] Rbc As-3 Leukoreduced Unit 400 / 400 [id number] Output: Urine Amount (Catheter) 300 / 300 550 / 550 Indwelling Urethral Catheter 300 / 300 550 / 550 Gastric Drainage 100 / 100 50 / 50 Oral Orogastric Tube 100 / 100 50 / 50 Other: Date of Last Bowel Movement 05/20/18 05/21/18 # Bowel Movements 2 1 Result Diagrams: 05/21/18 04:45 05/21/18 04:45 Other Results: Microbiology 05/20/18 15:30 Nasal Wash Influenza Types A,B Antigen - Final Negative for FLU A and B antigen Infection due to influenza A or B cannot be ruled out since the antigen present in the sample may be below the detection limit of the test. Imaging: Abdomen X-Ray 05/20/18 02:10 CONCLUSION: Nonspecific, benign abdomen appearance. Abdomen/Pelvis CT 05/20/18 02:10 CONCLUSION: Rectal fecal impaction and likely mild proctitis Chest X-Ray 05/20/18 02:10 CONCLUSION: Negative examination. Chest X-Ray 05/20/18 05:29 CONCLUSION: Satisfactory endotracheal tube positioning. Slight bibasilar parenchymal opacities. Head CT 05/20/18 05:44 CONCLUSION: No acute intracranial findings . Chest X-Ray 05/20/18 08:57 CONCLUSION: 1. Left IJ central line in the mid SVC without pneumothorax. Objective Remarks: GENERAL: 68-year-old female currently resting in bed in no acute distress SKIN: Warm and dry. No rash HEAD: Atraumatic. Normocephalic. EYES: Pupils equal and round. No scleral icterus. No injection or drainage. ENT: No nasal bleeding or discharge. Mucous membranes pink and moist. NECK: Trachea midline. No JVD. CARDIOVASCULAR: Regular rate and rhythm. S1, S2 predose 4. 1/6 systolic murmur r RESPIRATORY: No accessory muscle use. Clear to auscultation. Breath sounds equal bilaterally. GASTROINTESTINAL: Abdomen distended and protuberant with hypoactive bowel sounds appreciate MUSCULOSKELETAL: Extremities trace bilateral lower extremity edema. No obvious deformities. NEUROLOGICAL: Sedated on the ventilator. Positive corneal effect. Positive pupillary reflex 4 mm down to 3 mm. Positive gag and cough. Withdraws to sternal rub. Assessment and Plan - Assessment and Plan Plan: Plan: Neuro/Psych: Depression/anxiety disorder NOS Peripheral neuropathy Chronic insomnia Acute syncope likely vagal Holding alprazolam 0.5 mg twice daily/home medication Currently on trazodone 50 mg at night for depression Gabapentin 100 mg 3 times daily for peripheral neuropathy currently on hold Ofirmev 650 mg IV every 6 hours as needed fever Currently on propofol/fentanyl drips for sedation/analgesia while intubated Goal of RASS -[address] brain 05/20 revealed no acute intracranial findings Holding melatonin 3 mg at night for insomnia CV: Essential hypertension Hyperlipidemia Questionable atrial septal defect on echocardiogram 04/[address] Hooks 04/18 admission. Started on rivaroxaban. 2D echocardiogram time revealed EF 65-30%. LVH. Essentially normal pulmonary arterial pressures. Holding anti-pretenses including amlodipine 10 mg daily, captopril/ hydrochlorthiazide 25/25 1 tablet daily, carvedilol 25 mg twice daily and hydralazine 75 mg 3 times daily in light of acute bleeding. On atorvastatin 40 mg daily for dyslipidemia. Hold aspirin 81 mg daily in light of GI bleed Resp: Acute respiratory failure COPD History of pulmonary embolism on chronic rivaroxaban [facility] /09/05/39 Ventilator bundle Albuterol/ipratropium aerosols every 4 hours with albuterol aerosols every 2 as needed for dyspnea Continue budesonide/formoterol 160/4.52 puffs twice daily via ventilator Chest x-ray post intubation revealed no acute cardiopulmonary findings Will attempt extubation today GI: Fecal impaction GI bleed Hypoalbuminemia Elevated lipase of unclear significance NG tube to low remnant wall suction Pantoprazole 40 mg IV twice daily Docusate serum/senna 1 tablet twice daily for bowel regimen GI consultation for endoscopy Disimpacted in the ED. Possibly vagal during that event. CT abdomen/pelvis revealed fecal disimpaction. Possible proctitis. : History of anterior urethral stricture Chirinos catheter if indicated Endo: Hyperglycemia Chronic prednisone use Sliding scale insulin with aspart insulin medium regimen every 6 hours to maintain euglycemia Check TSH Put on hydrocortisone 100 mg 3 times daily/stress dose steroids and weaned over the next week Renal: Acute kidney injury Baseline creatinine around 1.1. Monitor urine output Accurate I's and O's CT abdomen/pelvis revealed no hydronephrosis. Negative urine eosinophils. Avoid nephrotoxic medication. Heme: Leukocytosis Acute blood loss anemia Chronic rivaroxaban use Receiving 4500 K Centra 05/20 Serial hemoglobins every 6 hours completed and stated Transfuse 2 units PRBCs Recheck CBC in a.m. 05/20 ID: Received vancomycin and piperacillin/tazobactam ED. UA negative Blood cultures x2, sputum, influenza a and B no growth todTE FEN: Hyper magnesium Replace electrolytes as clinically indicated Currently on normal saline at 125 cc now MSK: Elevated BMI Weight loss encouraged Access -Utilize peripheral IV. Central line if indicated Prophylaxis -GI -pantoprazole -DVT-SCD/holding pharmacological prophylaxis in light of GI bleed Level 2 follow-up
--- NOTE | 2018-05-21 10:16 | P.PNGI ---
Subjective Interval history: Pt is resting in bed, in 2 points restraints, per nurse, she had pink stools. hh stable, OG was removed today, normal gastric out put. Was extubated today. <Nazanin Clark - Last Filed: 05/21/18 10:07> Physical Exam Vital signs: Vital Signs 05/20/18 10:30 05/20/18 10:35 05/20/18 10:42 Temperature 97.7 F 97.4 F L Pulse Rate 79 79 79 Respiratory Rate 18 18 18 Blood Pressure 125/58 L 125/58 L 125/58 L Pulse Oximetry 100 100 94 L 05/20/18 10:50 05/20/18 11:00 05/20/18 11:30 Temperature 98.4 F Pulse Rate 77 77 76 Respiratory Rate 18 18 18 Blood Pressure 126/59 L 126/59 L 132/63 Pulse Oximetry 99 99 96 05/20/18 12:00 05/20/18 12:52 05/20/18 13:00 Temperature 98.4 F Pulse Rate 84 78 Respiratory Rate 18 18 18 Blood Pressure 158/68 H Pulse Oximetry 94 L 95 95 05/20/18 13:01 05/20/18 14:00 05/20/18 15:00 Temperature 97.7 F Pulse Rate 79 79 80 Respiratory Rate 18 18 18 Blood Pressure 117/56 L 113/53 L 114/53 L Pulse Oximetry 95 95 95 05/20/18 16:00 05/20/18 16:18 05/20/18 17:00 Temperature 98.1 F Pulse Rate 79 73 74 Respiratory Rate 18 16 18 Blood Pressure 116/57 L 104/51 L Pulse Oximetry 96 96 99 05/20/18 18:00 05/20/18 19:00 05/20/18 20:00 Temperature 99.3 F Pulse Rate 73 73 76 Respiratory Rate 18 18 18 Blood Pressure 105/53 L 107/54 L 113/57 L Pulse Oximetry 99 100 100 05/20/18 20:27 05/20/18 20:28 05/20/18 21:00 Temperature Pulse Rate 76 79 Respiratory Rate 18 18 18 Blood Pressure 120/56 L Pulse Oximetry 100 100 05/20/18 22:00 05/20/18 23:00 05/20/18 23:35 Temperature Pulse Rate 79 79 79 Respiratory Rate 18 18 18 Blood Pressure 123/57 L 124/56 L Pulse Oximetry 100 100 100 05/21/18 00:00 05/21/18 01:00 05/21/18 02:00 Temperature 99.9 F H Pulse Rate 79 75 101 H Respiratory Rate 18 18 21 Blood Pressure 123/60 118/57 L Pulse Oximetry 100 100 79 L 05/21/18 02:11 05/21/18 03:00 05/21/18 03:08 Temperature Pulse Rate 97 H 85 85 Respiratory Rate 18 18 18 Blood Pressure 183/79 H 138/61 Pulse Oximetry 95 97 05/21/18 04:00 05/21/18 05:00 05/21/18 06:00 Temperature Pulse Rate 87 83 77 Respiratory Rate 18 18 18 Blood Pressure 145/65 H 132/60 136/64 Pulse Oximetry 96 100 100 05/21/18 07:00 05/21/18 07:28 Temperature Pulse Rate 79 96 H Respiratory Rate 18 14 Blood Pressure 145/66 H Pulse Oximetry 100 Intake & Output 05/20/18 05/21/18 05/21/18 18:59 06:59 18:59 Intake Total 1800 / 1800 4365 / 4365 Output Total 400 / 400 600 / 600 Balance 1400 / 1400 3765 / 3765 Weight 88.8 kg Intake: IV 1000 / 1000 4365 / 4365 Diprivan 1000 mg/100 ml Inj 1, 100 / 100 000 mg In 100 ml @ 5 MCG/KG/MIN 2.571 mls/hr IV.CONT TITRATE PRN Rx#:[id number] NS Inj 1,000 ML @ 125 mls/hr IV 1000 / 1000 1999 / 1999 .CONT .Q8H ANNE Rx#:[id number] Alburx 5% Inj 500 ML @ 250 mls/ 500 / 500 hr IV.SIG ONCE ONE Rx#:[id number] Intake (Blood Product) Amt 800 / 800 Rbc As-3 Leukoreduced Unit 400 / 400 [id number] Rbc As-3 Leukoreduced Unit 0 / 0 [id number] Rbc As-3 Leukoreduced Unit 400 / 400 [id number] Output: Urine Amount (Catheter) 300 / 300 550 / 550 Indwelling Urethral Catheter 300 / 300 550 / 550 Gastric Drainage 100 / 100 50 / 50 Oral Orogastric Tube 100 / 100 50 / 50 Other: Date of Last Bowel Movement 05/20/18 05/21/18 # Bowel Movements 2 1 - Constitutional no acute distress - Routine HEENT Exam Head: Present: normocephalic - Routine Neck Exam Present: supple - Routine Respiratory Exam Present: CTA bilaterally - Routine Cardiovascular Exam Present: RRR - Routine Abdominal Exam Present: soft, normoactive bowel sounds. Absent: tenderness, distended - Routine Skin Exam Present: intact, dry - Routine Neurological Exam Present: alert - Urinary Catheter Management Indwelling Urethral Catheter Cath placed during this visit: yes Reason for continuing: Hourly intake/output Insertion date: 05/20/18 Insertion time: 06:00 <Nazanin Clark - Last Filed: 05/21/18 10:07> Vital signs: Vital Signs 05/20/18 16:00 05/20/18 16:18 05/20/18 17:00 Temperature 98.1 F Pulse Rate 79 73 74 Respiratory Rate 18 16 18 Blood Pressure 116/57 L 104/51 L Pulse Oximetry 96 96 99 05/20/18 18:00 05/20/18 19:00 05/20/18 20:00 Temperature 99.3 F Pulse Rate 73 73 76 Respiratory Rate 18 18 18 Blood Pressure 105/53 L 107/54 L 113/57 L Pulse Oximetry 99 100 100 05/20/18 20:27 05/20/18 20:28 05/20/18 21:00 Temperature Pulse Rate 76 79 Respiratory Rate 18 18 18 Blood Pressure 120/56 L Pulse Oximetry 100 100 05/20/18 22:00 05/20/18 23:00 05/20/18 23:35 Temperature Pulse Rate 79 79 79 Respiratory Rate 18 18 18 Blood Pressure 123/57 L 124/56 L Pulse Oximetry 100 100 100 05/21/18 00:00 05/21/18 01:00 05/21/18 02:00 Temperature 99.9 F H Pulse Rate 79 75 101 H Respiratory Rate 18 18 21 Blood Pressure 123/60 118/57 L Pulse Oximetry 100 100 79 L 05/21/18 02:11 05/21/18 03:00 05/21/18 03:08 Temperature Pulse Rate 97 H 85 85 Respiratory Rate 18 18 18 Blood Pressure 183/79 H 138/61 Pulse Oximetry 95 97 05/21/18 04:00 05/21/18 05:00 05/21/18 06:00 Temperature Pulse Rate 87 83 77 Respiratory Rate 18 18 18 Blood Pressure 145/65 H 132/60 136/64 Pulse Oximetry 96 100 100 05/21/18 07:00 05/21/18 07:28 05/21/18 08:00 Temperature 98.1 F Pulse Rate 79 96 H 100 H Respiratory Rate 18 14 12 Blood Pressure 145/66 H 193/84 H Pulse Oximetry 100 93 L 05/21/18 09:00 05/21/18 10:00 05/21/18 11:42 Temperature Pulse Rate 112 H 100 H 102 H Respiratory Rate 19 24 Blood Pressure 141/69 H Pulse Oximetry 88 L 05/21/18 12:00 05/21/18 14:00 Temperature 97.6 F Pulse Rate 95 H 91 H Respiratory Rate 15 15 Blood Pressure 130/62 142/64 H Pulse Oximetry 95 95 Intake & Output 05/20/18 05/21/18 05/21/18 18:59 06:59 18:59 Intake Total 1800 / 1800 4365 / 4365 1000 / 1000 Output Total 400 / 400 600 / 600 Balance 1400 / 1400 3765 / 3765 1000 / 1000 Weight 88.8 kg Intake: IV 1000 / 1000 4365 / 4365 1000 / 1000 Diprivan 1000 mg/100 ml Inj 1, 100 / 100 000 mg In 100 ml @ 5 MCG/KG/MIN 2.571 mls/hr IV.CONT TITRATE PRN Rx#:[id number] NS Inj 1,000 ML @ 125 mls/hr IV 1000 / 1000 2000 / 2000 1000 / 1000 .CONT .Q8H ANNE Rx#:[id number] Alburx 5% Inj 500 ML @ 250 mls/ 500 / 500 hr IV.SIG ONCE ONE Rx#:[id number] Intake (Blood Product) Amt 800 / 800 Rbc As-3 Leukoreduced Unit 400 / 400 [id number] Rbc As-3 Leukoreduced Unit 0 / 0 [id number] Rbc As-3 Leukoreduced Unit 400 / 400 [id number] Output: Urine Amount (Catheter) 300 / 300 550 / 550 Indwelling Urethral Catheter 300 / 300 550 / 550 Gastric Drainage 100 / 100 50 / 50 Oral Orogastric Tube 100 / 100 50 / 50 Other: Date of Last Bowel Movement 09/19/18 09/20/18 09/19/18 # Bowel Movements 2 1 - Urinary Catheter Management Indwelling Urethral Catheter Cath placed during this visit: no <Sa Ramonud E - Last Filed: 05/21/18 15:42> Results - Labs CBC & Chem 7: 05/21/18 04:45 05/21/18 04:45 Laboratory Results - last 24 hr 05/20/18 05/20/18 05/20/18 05:30 05:30 06:30 WBC RBC Hgb Hct MCV MCH MCHC RDW Plt Count MPV Neut % (Auto) Lymph % (Auto) Tucker % (Auto) Eos % (Auto) Baso % (Auto) Neut # (Auto) Lymph # (Auto) Tucker # (Auto) Eos # (Auto) Baso # (Auto) WBC Differential Differential Comment PT INR APTT Puncture Site Patient Temperature O2 Saturation ABG pH ABG pCO2 ABG pO2 ABG HCO3 ABG O2 Content ABG Base Excess ABG Methemoglobin Spenser Test Hemoglobin Carboxyhemoglobin O2 Delivery Device Vent Setting Inspired O2 Critical Value Sodium Potassium Chloride Carbon Dioxide Anion Gap BUN Creatinine Estimated GFR POC Glucose Random Glucose Lactic Acid Calcium Prot Corrected Calcium Phosphorus Magnesium Total Bilirubin AST ALT Alkaline Phosphatase Troponin I Total Protein Albumin Urine Eosinophils Ur Random Creatinine 115 Ur Random Sodium 7 Nasal Screen MRSA (PCR) Mrsa detected MTS Gel Crossmatch Bld Prod Order Comment 05/20/18 05/20/18 05/20/18 07:13 11:45 12:12 WBC RBC Hgb 10.4 L D Hct 32.4 L MCV MCH MCHC RDW Plt Count MPV Neut % (Auto) Lymph % (Auto) Tucker % (Auto) Eos % (Auto) Baso % (Auto) Neut # (Auto) Lymph # (Auto) Tucker # (Auto) Eos # (Auto) Baso # (Auto) WBC Differential Differential Comment PT INR APTT Puncture Site Right radial Patient Temperature 98.6 O2 Saturation 91 ABG pH 7.36 L ABG pCO2 42 ABG pO2 68 ABG HCO3 23 ABG O2 Content 13.4 ABG Base Excess -1.5 ABG Methemoglobin 1.8 Spenser Test Present Hemoglobin 10.4 L Carboxyhemoglobin 1.7 O2 Delivery Device Ventilator Vent Setting [id number] Inspired O2 35 Critical Value No Sodium Potassium Chloride Carbon Dioxide Anion Gap BUN Creatinine Estimated GFR POC Glucose Random Glucose Lactic Acid Calcium Prot Corrected Calcium Phosphorus Magnesium Total Bilirubin AST ALT Alkaline Phosphatase Troponin I Total Protein Albumin Urine Eosinophils Ur Random Creatinine Ur Random Sodium Nasal Screen MRSA (PCR) MTS Gel Crossmatch See Detail Bld Prod Order Comment 05/20/18 05/20/18 05/20/18 12:12 12:30 15:55 WBC RBC Hgb 10.2 L Hct 32.3 L MCV MCH MCHC RDW Plt Count MPV Neut % (Auto) Lymph % (Auto) Tucker % (Auto) Eos % (Auto) Baso % (Auto) Neut # (Auto) Lymph # (Auto) Tucker # (Auto) Eos # (Auto) Baso # (Auto) WBC Differential Differential Comment PT INR APTT Puncture Site Patient Temperature O2 Saturation ABG pH ABG pCO2 ABG pO2 ABG HCO3 ABG O2 Content ABG Base Excess ABG Methemoglobin Spenser Test Hemoglobin Carboxyhemoglobin O2 Delivery Device Vent Setting Inspired O2 Critical Value Sodium 141 Potassium 4.1 Chloride 106 Carbon Dioxide 25.0 Anion Gap 10 BUN 44 H Creatinine 2.14 H Estimated GFR 23 L POC Glucose 231 H Random Glucose 229 H Lactic Acid Calcium 7.5 L D Prot Corrected Calcium Phosphorus Magnesium Total Bilirubin AST ALT Alkaline Phosphatase Troponin I Less than 0.02 L Total Protein Albumin Urine Eosinophils Ur Random Creatinine Ur Random Sodium Nasal Screen MRSA (PCR) MTS Gel Crossmatch Bld Prod Order Comment 05/20/18 05/20/18 05/21/18 16:34 21:44 00:39 WBC RBC Hgb 10.2 L Hct 31.5 L MCV MCH MCHC RDW Plt Count MPV Neut % (Auto) Lymph % (Auto) Tucker % (Auto) Eos % (Auto) Baso % (Auto) Neut # (Auto) Lymph # (Auto) Tucker # (Auto) Eos # (Auto) Baso # (Auto) WBC Differential Differential Comment PT INR APTT Puncture Site Patient Temperature O2 Saturation ABG pH ABG pCO2 ABG pO2 ABG HCO3 ABG O2 Content ABG Base Excess ABG Methemoglobin Spenser Test Hemoglobin Carboxyhemoglobin O2 Delivery Device Vent Setting Inspired O2 Critical Value Sodium Potassium Chloride Carbon Dioxide Anion Gap BUN Creatinine Estimated GFR POC Glucose 209 H 211 H Random Glucose Lactic Acid Calcium Prot Corrected Calcium Phosphorus Magnesium Total Bilirubin AST ALT Alkaline Phosphatase Troponin I Total Protein Albumin Urine Eosinophils Ur Random Creatinine Ur Random Sodium Nasal Screen MRSA (PCR) MTS Gel Crossmatch Bld Prod Order Comment 05/21/18 05/21/1818 04:45 04:45 04:45 WBC 14.2 H RBC 3.65 L Hgb 10.1 L Hct 30.8 L MCV 84.4 MCH 27.7 MCHC 32.9 RDW 17.1 Plt Count 255 MPV 7.8 Neut % (Auto) 90.4 H Lymph % (Auto) 5.0 L Tucker % (Auto) 4.5 Eos % (Auto) 0.0 Baso % (Auto) 0.1 Neut # (Auto) 12.9 H Lymph # (Auto) 0.7 L Tucker # (Auto) 0.6 Eos # (Auto) 0.0 Baso # (Auto) 0.0 WBC Differential . Differential Comment Auto diff final PT 11.1 INR 1.1 APTT 25.4 Puncture Site Patient Temperature O2 Saturation ABG pH ABG pCO2 ABG pO2 ABG HCO3 ABG O2 Content ABG Base Excess ABG Methemoglobin Spenser Test Hemoglobin Carboxyhemoglobin O2 Delivery Device Vent Setting Inspired O2 Critical Value Sodium 143 Potassium 3.7 Chloride 110 H Carbon Dioxide 24.0 Anion Gap 9 BUN 46 H Creatinine 2.01 H Estimated GFR 25 L POC Glucose Random Glucose 188 H Lactic Acid Calcium 7.3 L* Prot Corrected Calcium 8.1 L Phosphorus 3.8 Magnesium 4.3 H Total Bilirubin 0.5 AST 24 ALT 23 Alkaline Phosphatase 85 Troponin I Total Protein 5.6 L Albumin 2.6 L Urine Eosinophils Ur Random Creatinine Ur Random Sodium Nasal Screen MRSA (PCR) MTS Gel Crossmatch Bld Prod Order Comment 05/21/18 05/21/18 04:45 05:45 WBC RBC Hgb Hct MCV MCH MCHC RDW Plt Count MPV Neut % (Auto) Lymph % (Auto) Tucker % (Auto) Eos % (Auto) Baso % (Auto) Neut # (Auto) Lymph # (Auto) Tucker # (Auto) Eos # (Auto) Baso # (Auto) WBC Differential Differential Comment PT INR APTT Puncture Site Patient Temperature O2 Saturation ABG pH ABG pCO2 ABG pO2 ABG HCO3 ABG O2 Content ABG Base Excess ABG Methemoglobin Spenser Test Hemoglobin Carboxyhemoglobin O2 Delivery Device Vent Setting Inspired O2 Critical Value Sodium Potassium Chloride Carbon Dioxide Anion Gap BUN Creatinine Estimated GFR POC Glucose 189 H Random Glucose Lactic Acid 1.4 Calcium Prot Corrected Calcium Phosphorus Magnesium Total Bilirubin AST ALT Alkaline Phosphatase Troponin I Total Protein Albumin Urine Eosinophils Ur Random Creatinine Ur Random Sodium Nasal Screen MRSA (PCR) MTS Gel Crossmatch Bld Prod Order Comment Microbiology 05/20/18 15:30 Nasal Wash Influenza Types A,B Antigen - Final Negative for FLU A and B antigen Infection due to influenza A or B cannot be ruled out since the antigen present in the sample may be below the detection limit of the test. <Nazanin Clark - Last Filed: 05/21/18 10:07> - Labs CBC & Chem 7: 05/21/18 04:45 05/21/18 04:45 Laboratory Results - last 24 hr 05/20/18 05/20/18 05/20/18 05:30 05:30 07:13 WBC RBC Hgb Hct MCV MCH MCHC RDW Plt Count MPV Neut % (Auto) Lymph % (Auto) Tucker % (Auto) Eos % (Auto) Baso % (Auto) Neut # (Auto) Lymph # (Auto) Tucker # (Auto) Eos # (Auto) Baso # (Auto) WBC Differential Differential Comment PT INR APTT Sodium Potassium Chloride Carbon Dioxide Anion Gap BUN Creatinine Estimated GFR POC Glucose Random Glucose Lactic Acid Calcium Prot Corrected Calcium Phosphorus Magnesium Total Bilirubin AST ALT Alkaline Phosphatase Total Protein Albumin Urine Eosinophils Ur Random Creatinine 115 Ur Random Sodium 7 MTS Gel Crossmatch See Detail Bld Prod Order Comment 05/20/18 05/20/18 05/20/18 15:55 16:34 21:44 WBC RBC Hgb 10.2 L 10.2 L Hct 32.3 L 31.5 L MCV MCH MCHC RDW Plt Count MPV Neut % (Auto) Lymph % (Auto) Tucker % (Auto) Eos % (Auto) Baso % (Auto) Neut # (Auto) Lymph # (Auto) Tucker # (Auto) Eos # (Auto) Baso # (Auto) WBC Differential Differential Comment PT INR APTT Sodium Potassium Chloride Carbon Dioxide Anion Gap BUN Creatinine Estimated GFR POC Glucose 209 H Random Glucose Lactic Acid Calcium Prot Corrected Calcium Phosphorus Magnesium Total Bilirubin AST ALT Alkaline Phosphatase Total Protein Albumin Urine Eosinophils Ur Random Creatinine Ur Random Sodium MTS Gel Crossmatch Bld Prod Order Comment 05/21/18 05/21/18 05/21/18 00:39 04:45 04:45 WBC 14.2 H RBC 3.65 L Hgb 10.1 L Hct 30.8 L MCV 84.4 MCH 27.7 MCHC 32.9 RDW 17.1 Plt Count 255 MPV 7.8 Neut % (Auto) 90.4 H Lymph % (Auto) 5.0 L Tucker % (Auto) 4.5 Eos % (Auto) 0.0 Baso % (Auto) 0.1 Neut # (Auto) 12.9 H Lymph # (Auto) 0.7 L Tucker # (Auto) 0.6 Eos # (Auto) 0.0 Baso # (Auto) 0.0 WBC Differential . Differential Comment Auto diff final PT 11.1 INR 1.1 APTT 25.4 Sodium Potassium Chloride Carbon Dioxide Anion Gap BUN Creatinine Estimated GFR POC Glucose 211 H Random Glucose Lactic Acid Calcium Prot Corrected Calcium Phosphorus Magnesium Total Bilirubin AST ALT Alkaline Phosphatase Total Protein Albumin Urine Eosinophils Ur Random Creatinine Ur Random Sodium MTS Gel Crossmatch Bld Prod Order Comment 05/21/18 05/21/18 05/21/18 04:45 04:45 05:45 WBC RBC Hgb Hct MCV MCH MCHC RDW Plt Count MPV Neut % (Auto) Lymph % (Auto) Tucker % (Auto) Eos % (Auto) Baso % (Auto) Neut # (Auto) Lymph # (Auto) Tucker # (Auto) Eos # (Auto) Baso # (Auto) WBC Differential Differential Comment PT INR APTT Sodium 143 Potassium 3.7 Chloride 110 H Carbon Dioxide 24.0 Anion Gap 9 BUN 46 H Creatinine 2.01 H Estimated GFR 25 L POC Glucose 189 H Random Glucose 188 H Lactic Acid 1.4 Calcium 7.3 L* Prot Corrected Calcium 8.1 L Phosphorus 3.8 Magnesium 4.3 H Total Bilirubin 0.5 AST 24 ALT 23 Alkaline Phosphatase 85 Total Protein 5.6 L Albumin 2.6 L Urine Eosinophils Ur Random Creatinine Ur Random Sodium MTS Gel Crossmatch Bld Prod Order Comment 05/21/18 05/21/18 12:27 13:50 WBC RBC Hgb Hct MCV MCH MCHC RDW Plt Count MPV Neut % (Auto) Lymph % (Auto) Tucker % (Auto) Eos % (Auto) Baso % (Auto) Neut # (Auto) Lymph # (Auto) Tucker # (Auto) Eos # (Auto) Baso # (Auto) WBC Differential Differential Comment PT INR APTT Sodium Potassium Chloride Carbon Dioxide Anion Gap BUN Creatinine Estimated GFR POC Glucose 201 H Random Glucose Lactic Acid Calcium Prot Corrected Calcium Phosphorus 3.9 Magnesium 4.1 H Total Bilirubin AST ALT Alkaline Phosphatase Total Protein Albumin Urine Eosinophils Ur Random Creatinine Ur Random Sodium MTS Gel Crossmatch Bld Prod Order Comment Microbiology 05/20/18 03:15 Blood - Peripheral Aerobic Blood Culture - Preliminary No growth in 1 day 05/20/18 03:15 Blood - Peripheral Anaerobic Blood Culture - Preliminary No growth in 1 day 05/20/18 03:10 Blood - Peripheral Aerobic Blood Culture - Preliminary No growth in 1 day 05/20/18 03:10 Blood - Peripheral Anaerobic Blood Culture - Preliminary No growth in 1 day 05/20/18 16:35 Sputum - Endotracheal Gram Stain - Final 05/20/18 16:35 Sputum - Endotracheal Sputum Culture - Preliminary No growth in 24 hours 05/20/18 15:30 Nasal Wash Influenza Types A,B Antigen - Final Negative for FLU A and B antigen Infection due to influenza A or B cannot be ruled out since the antigen present in the sample may be below the detection limit of the test. <Julián Navarro - Last Filed: 05/21/18 15:42> Assessment and Plan - Plan Bloody stools/black stools - Hh stable, having pink stools per nurse, OG removed today, was normal gastric output. CT scan did note some proctitis Fecal impaction, disimpacted on admission History of PE on Xarelto ( on Hold) Respiratory failure- S/p intubation, was extubated today Plan Might feed pt Cont. PPI Hold Xarelto Monitor labs with special attention to hemoglobin Transfuse as needed EGD/colonoscopy when stable, possibly sometimes next week Patient was seen per myself and Dr. Navarro, note was written on his behalf <Nazanin Clark - Last Filed: 05/21/18 10:07> - Plan Patient seen and examined Agree with above Continue with current supportive care Monitor labs <Julián Navarro - Last Filed: 05/21/18 15:42>
[2018-05-21] MEDS: traZODone 50 MG Tablet PO SCH (13:54)
[2018-05-21 14:43] LABS: Magnesium 4.1 mg/dL (1.5-2.5); Phosphorus 3.9 mg/dL (2.5-4.9)
[2018-05-21] MEDS ORDERED: niCARdipine Inj 25 MG in Sodium Chlor 0.9% Inj 240 ML IV.CONT PRN (17:49)
[2018-05-21] MEDS: Gabapentin 100 MG Capsule PO SCH (18:25)
[2018-05-21] MEDS: hydrALAZINE 25 MG Tablet PO SCH (18:25)
--- NOTE | 2018-05-21 20:38 | CT ---
EXAM DATE: 05/21/2018 8:30 PM EDT AGE/SEX: 68 years / Female INDICATIONS: Altered mental status. CLINICAL DATA: This is the patient's initial encounter. Patient reports that signs and symptoms have been present for 1 day and indicates a pain score of 0/10. MEDICAL/SURGICAL HISTORY: Chronic obstructive pulmonary disease. Hypertension. Pulmonary embolism. None. RADIATION DOSE: 52.17 CTDI (mGy) [place] [facility] [place]. . TECHNIQUE: CT of the head without contrast. Using automated exposure control and adjustment of the mA and/or kV according to patient size, radiation dose was kept as low as reasonably achievable to ob tain optimal diagnostic quality images. DICOM format image data is available electronically for revi ew and comparison. FINDINGS: Cerebrum: The ventricles are normal for age. No evidence of midline shift, mass lesion, hemorrhage or acute infarction. No extraaxial fluid collections are seen. Patchy white matter ischemic changes similar to recent exam. Posterior Fossa: The cerebellum and brainstem are intact. The 4th ventricle is midline. The cerebe llopontine angle is unremarkable. Extracranial: The visualized portion of the orbits is intact. Skull: The calvaria is intact. No evidence of skull fracture. CONCLUSION: 1. No acute findings. Stable exam since May 20. Chronic white matter ischemic changes. Retenti on cyst right maxillary sinus. . Electronically signed by: Ezio Hart MD 05/21/2018 8:36 PM EDT
[2018-05-21] MEDS ORDERED: CAPTOPRIL PO SCH (21:00)
[2018-05-21] MEDS ORDERED: HYDROCHLOROTHIAZIDE PO SCH (21:00)
[2018-05-21] MEDS: Mupirocin 2% Nasal Oint Topical Syringe EACH NARE SCH (21:55)
[2018-05-21] MEDS: Melatonin 5 MG Tablet PO SCH (21:56)
[2018-05-21] MEDS: Carvedilol 12.5 MG Tablet PO SCH (21:56)
[2018-05-21] MEDS: ALPRAZolam 0.25 MG Tablet PO PRN (21:57)
[2018-05-22] MEDS: Oral Hygiene Kit OROPHARYNG SCH ×4 (01:16→18:53)
[2018-05-22] MEDS: Insulin NovoLOG Aspart Correctional Sugar Inj SQ SCH ×4 (05:33→23:59)
[2018-05-22] MEDS: Sod Chloride 0.9% Inj 1,000 ML IV.CONT SCH (05:41)
[2018-05-22] MEDS: Hydrocortisone Sod Succinate 100 MG Vial IV.PUSH SCH ×3 (05:41→21:30)
[2018-05-22] MEDS: Chlorhexidine Gluconate 2% 1 Pack (2 Cloths) TOPICAL SCH (05:41)
[2018-05-22 07:06] LABS: Baso % (Auto) 0.1 % (0.0-2.0); Hematocrit 30.1 % (35.0-46.0); Hemoglobin 9.9 gm/dL (11.6-15.3); Lymph # (Auto) 0.8 th/mm3 (1.0-4.8); Lymph % (Auto) 6.7 % (9.0-44.0); Mean Corpuscular HGB Conc 32.9 % (32.0-36.0); Mean Corpuscular Hemoglobin 28.1 pg (27.0-34.0); Mean Corpuscular Volume 85.5 fL (80.0-100.0); Mono # (Auto) 0.6 th/mm3 (0.0-0.9); Mono % (Auto) 4.8 % (0.0-8.0); Neut # (Auto) 10.7 th/mm3 (1.8-7.7); Neut % (Auto) 88.4 % (16.0-70.0); Platelet Count 231 th/mm3 (150-450); Red Blood Count 3.52 mil/mm3 (4.00-5.30); Red Cell Distribution Width 17.5 % (11.6-17.2); White Blood Count 12.2 th/mm3 (4.0-11.0)
[2018-05-22 07:08] LABS: Carbon Dioxide 24.5 meq/L (21.0-32.0); Potassium 3.8 meq/L (3.5-5.1)
[2018-05-22] MEDS: traZODone 50 MG Tablet PO SCH (10:09)
[2018-05-22] MEDS: Pantoprazole Inj 40 MG Vial IV.PUSH SCH ×2 (10:09→21:41)
[2018-05-22] MEDS: hydroCHLOROthiazide 25 MG Tablet PO SCH ×2 (10:15→21:30)
[2018-05-22] MEDS: Gabapentin 100 MG Capsule PO SCH ×3 (10:17→18:54)
[2018-05-22] MEDS: Lactic Acid (Ammonium Lactate) 12% Lotion 225 GM Bottle TOPICAL SCH (10:19)
[2018-05-22] MEDS: Senna/Docusate Sodium 8.6/50 MG Tablet PO SCH ×2 (10:20→21:30)
[2018-05-22] MEDS: Carvedilol 12.5 MG Tablet PO SCH ×2 (10:20→21:41)
[2018-05-22] MEDS: Mupirocin 2% Nasal Oint Topical Syringe EACH NARE SCH ×2 (10:20→21:41)
[2018-05-22] MEDS: Chlorhexidine 0.12% Oral Kit 15 ML UDC OROPHARYNG SCH ×2 (10:23→23:58)
[2018-05-22] MEDS: hydrALAZINE 25 MG Tablet PO SCH ×3 (10:23→18:53)
[2018-05-22] MEDS: Polyvinyl Alcohol/Povidone PF Opth Drops 0.4 ML Dropperette EACH EYE SCH ×2 (10:24→23:58)
--- NOTE | 2018-05-22 10:29 | P.PNGI ---
Subjective Interval history: Patient continues in the intensive care setting off ventilator support now oxygen per nasal cannula greater than 6 L. IV fluids at 1 25 cc an hour and patient has audible wheezing and coarse breath sounds while talking. No obvious bleeding but still has abdominal tenderness generalized on palpation. No obvious nausea or vomiting <LissyGladys M - Last Filed: 05/22/18 10:37> Physical Exam Vital signs: Vital Signs 05/21/18 11:00 05/21/18 11:42 05/21/18 12:00 Temperature 97.6 F Pulse Rate 97 H 102 H 95 H Respiratory Rate 12 24 15 Blood Pressure 132/60 130/62 Pulse Oximetry 89 L 92 L 05/21/18 13:00 05/21/18 14:00 05/21/18 14:01 Temperature Pulse Rate 97 H 91 H 90 Respiratory Rate 17 15 13 Blood Pressure 140/67 142/64 H 142/64 H Pulse Oximetry 93 L 95 96 05/21/18 15:00 05/21/18 16:00 05/21/18 16:01 Temperature 98.2 F Pulse Rate 92 H 88 89 Respiratory Rate 14 22 17 Blood Pressure 165/70 H 165/70 H 203/83 H Pulse Oximetry 92 L 94 L 94 L 05/21/18 16:13 05/21/18 16:19 05/21/18 17:00 Temperature Pulse Rate 91 H 86 92 H Respiratory Rate 16 14 18 Blood Pressure 160/70 H Pulse Oximetry 100 94 L 05/21/18 17:04 05/21/18 18:00 05/21/18 18:01 Temperature Pulse Rate 95 H 97 H 94 H Respiratory Rate 22 23 25 H Blood Pressure 142/63 H 135/62 Pulse Oximetry 95 90 L 92 L 05/21/18 19:00 05/21/18 19:36 05/21/18 20:00 Temperature 99.1 F Pulse Rate 94 H 100 H 107 H Respiratory Rate 22 22 27 H Blood Pressure 146/66 H Pulse Oximetry 92 L 92 L 85 L 05/21/18 20:59 05/21/18 21:00 05/21/18 22:00 Temperature Pulse Rate 109 H 103 H 101 H Respiratory Rate 24 26 H 17 Blood Pressure Pulse Oximetry 89 L 92 L 05/21/18 22:17 05/21/18 23:00 05/22/18 00:00 Temperature Pulse Rate 101 H 73 72 Respiratory Rate 22 14 13 Blood Pressure 136/61 126/58 L 135/62 Pulse Oximetry 89 L 95 94 L 05/22/18 01:00 05/22/18 02:00 05/22/18 03:00 Temperature Pulse Rate 76 74 73 Respiratory Rate 18 18 14 Blood Pressure 153/69 H 158/68 H 147/65 H Pulse Oximetry 96 94 L 95 05/22/18 04:00 05/22/18 04:01 05/22/18 04:33 Temperature Pulse Rate 76 79 82 Respiratory Rate 15 16 20 Blood Pressure 152/72 H Pulse Oximetry 92 L 93 L 05/22/18 05:00 05/22/18 06:00 05/22/18 07:00 Temperature Pulse Rate 74 83 79 Respiratory Rate 14 17 15 Blood Pressure 161/71 H 171/79 H Pulse Oximetry 94 L 91 L 91 L 05/22/18 07:01 05/22/18 07:38 Temperature Pulse Rate 79 80 Respiratory Rate 14 16 Blood Pressure 159/67 H Pulse Oximetry 91 L 91 L Intake & Output 05/21/18 05/22/18 05/22/18 18:59 06:59 18:59 Intake Total 1600 / 1600 2830 / 2830 Output Total 950 / 950 650 / 650 Balance 650 / 650 2180 / 2180 Weight 89.5 kg Intake: IV 1000 / 1000 2350 / 2350 Diprivan 1000 mg/100 ml Inj 1, 100 / 100 000 mg In 100 ml @ 5 MCG/KG/MIN 2.571 mls/hr IV.CONT TITRATE PRN Rx#:[id number] NS Inj 1,000 ML @ 125 mls/hr IV 1000 / 1000 1999 / 1999 .CONT .Q8H [facility] Rx#:[id number] fentaNYL 10 mcg/mL Premix Drip 250 / 250 2,500 mcg In 250 ml @ 50 MCG/HR 5 mls/hr IV.SIG TITRATE PRN Rx #:[id number] Oral 600 / 600 480 / 480 Output: Urine 650 / 650 Urine Amount (Catheter) 950 / 950 Indwelling Urethral Catheter 950 / 950 Other: Date of Last Bowel Movement 05/20/18 05/21/18 # Bowel Movements 1 - Constitutional mild distress, cachectic, disheveled - Routine HEENT Exam Head: Present: normocephalic ENT: Present: mucous membranes moist - Routine Respiratory Exam Present: decreased breath sounds, wheezes - Routine Cardiovascular Exam Present: S1, S2 - Routine Abdominal Exam Present: soft, tenderness ( generalize to light palpation), distended (Mild) - Routine Skin Exam Present: intact (Thin turgor), pallor - Routine Neurological Exam Present: altered mental status - Routine Psychiatric Exam Present: anxious (Mild) - Urinary Catheter Management Indwelling Urethral Catheter Cath placed during this visit: yes Reason for continuing: Hourly intake/output Insertion date: 05/20/18 Insertion time: 06:00 <Gladys Yuan - Last Filed: 05/22/18 10:37> Vital signs: Vital Signs 05/21/18 13:00 05/21/18 14:00 05/21/18 14:01 Temperature Pulse Rate 97 H 91 H 90 Respiratory Rate 17 15 13 Blood Pressure 140/67 142/64 H 142/64 H Pulse Oximetry 93 L 95 96 05/21/18 15:00 05/21/18 16:00 05/21/18 16:01 Temperature 98.2 F Pulse Rate 92 H 88 89 Respiratory Rate 14 22 17 Blood Pressure 165/70 H 165/70 H 203/83 H Pulse Oximetry 92 L 94 L 94 L 05/21/18 16:13 05/21/18 16:19 05/21/18 17:00 Temperature Pulse Rate 91 H 86 92 H Respiratory Rate 16 14 18 Blood Pressure 160/70 H Pulse Oximetry 100 94 L 05/21/18 17:04 05/21/18 18:00 05/21/18 18:01 Temperature Pulse Rate 95 H 97 H 94 H Respiratory Rate 22 23 25 H Blood Pressure 142/63 H 135/62 Pulse Oximetry 95 90 L 92 L 05/21/18 19:00 05/21/18 19:36 05/21/18 20:00 Temperature 99.1 F Pulse Rate 94 H 100 H 107 H Respiratory Rate 22 22 27 H Blood Pressure 146/66 H Pulse Oximetry 92 L 92 L 85 L 05/21/18 20:59 05/21/18 21:00 05/21/18 22:00 Temperature Pulse Rate 109 H 103 H 101 H Respiratory Rate 24 26 H 17 Blood Pressure Pulse Oximetry 89 L 92 L 05/21/18 22:17 05/21/18 23:00 05/22/18 00:00 Temperature Pulse Rate 101 H 73 72 Respiratory Rate 22 14 13 Blood Pressure 136/61 126/58 L 135/62 Pulse Oximetry 89 L 95 94 L 05/22/18 01:00 05/22/18 02:00 05/22/18 03:00 Temperature Pulse Rate 76 74 73 Respiratory Rate 18 18 14 Blood Pressure 153/69 H 158/68 H 147/65 H Pulse Oximetry 96 94 L 95 05/22/18 04:00 05/22/18 04:01 05/22/18 04:33 Temperature Pulse Rate 76 79 82 Respiratory Rate 15 16 20 Blood Pressure 152/72 H Pulse Oximetry 92 L 93 L 05/22/18 05:00 05/22/18 06:00 05/22/18 07:00 Temperature Pulse Rate 74 83 79 Respiratory Rate 14 17 15 Blood Pressure 161/71 H 171/79 H Pulse Oximetry 94 L 91 L 91 L 05/22/18 07:01 05/22/18 07:38 05/22/18 11:01 Temperature Pulse Rate 79 80 93 H Respiratory Rate 14 16 24 Blood Pressure 159/67 H Pulse Oximetry 91 L 91 L 05/22/18 11:12 Temperature Pulse Rate Respiratory Rate Blood Pressure Pulse Oximetry 92 L Intake & Output 05/21/18 05/22/18 05/22/18 18:59 06:59 18:59 Intake Total 1600 / 1600 2830 / 2830 Output Total 950 / 950 650 / 650 Balance 650 / 650 2180 / 2180 Weight 89.5 kg Intake: IV 1000 / 1000 2350 / 2350 Diprivan 1000 mg/100 ml Inj 1, 100 / 100 000 mg In 100 ml @ 5 MCG/KG/MIN 2.571 mls/hr IV.CONT TITRATE PRN Rx#:[id number] NS Inj 1,000 ML @ 125 mls/hr IV 1000 / 1000 1999 / 1999 .CONT .Q8H [facility] Rx#:[id number] fentaNYL 10 mcg/mL Premix Drip 250 / 250 2,500 mcg In 250 ml @ 50 MCG/HR 5 mls/hr IV.SIG TITRATE PRN Rx #:[id number] Oral 600 / 600 480 / 480 Output: Urine 650 / 650 Urine Amount (Catheter) 950 / 950 Indwelling Urethral Catheter 950 / 950 Other: Date of Last Bowel Movement 05/20/18 05/21/18 # Bowel Movements 1 - Urinary Catheter Management Indwelling Urethral Catheter Cath placed during this visit: no <Julián Navarro E - Last Filed: 05/22/18 12:28> Results - Labs CBC & Chem 7: 05/22/18 05:50 05/22/18 05:50 Laboratory Results - last 24 hr 05/21/18 05/21/18 05/21/18 12:27 13:50 18:28 WBC RBC Hgb Hct MCV MCH MCHC RDW Plt Count MPV Neut % (Auto) Lymph % (Auto) [place] % (Auto) Eos % (Auto) Baso % (Auto) Neut # (Auto) Lymph # (Auto) [place] # (Auto) Eos # (Auto) Baso # (Auto) WBC Differential Differential Comment Sodium Potassium Chloride Carbon Dioxide Anion Gap BUN Creatinine Estimated GFR POC Glucose 201 H 173 H Random Glucose Calcium Phosphorus 3.9 Magnesium 4.1 H 05/22/18 05/22/18 05/22/18 05:42 05:50 05:50 WBC 12.2 H RBC 3.52 L Hgb 9.9 L Hct 30.1 L MCV 85.5 MCH 28.1 MCHC 32.9 RDW 17.5 H Plt Count 231 MPV 8.0 Neut % (Auto) 88.4 H Lymph % (Auto) 6.7 L [place] % (Auto) 4.8 Eos % (Auto) 0.0 Baso % (Auto) 0.1 Neut # (Auto) 10.7 H Lymph # (Auto) 0.8 L [place] # (Auto) 0.6 Eos # (Auto) 0.0 Baso # (Auto) 0.0 WBC Differential . Differential Comment Auto diff final Sodium 146 H Potassium 3.8 Chloride 112 H Carbon Dioxide 24.5 Anion Gap 10 BUN 40 H Creatinine 1.35 H Estimated GFR 39 L POC Glucose 162 H Random Glucose 163 H Calcium 8.0 L Phosphorus Magnesium Microbiology 05/20/18 16:35 Sputum - Endotracheal Gram Stain - Final 05/20/18 16:35 Sputum - Endotracheal Sputum Culture - Final No growth in 48 hours 05/20/18 03:15 Blood - Peripheral Aerobic Blood Culture - Preliminary No growth in 1 day 05/20/18 03:15 Blood - Peripheral Anaerobic Blood Culture - Preliminary No growth in 1 day 05/20/18 03:10 Blood - Peripheral Aerobic Blood Culture - Preliminary No growth in 1 day 05/20/18 03:10 Blood - Peripheral Anaerobic Blood Culture - Preliminary No growth in 1 day - Imaging Impressions Head CT 05/21/18 19:41 CONCLUSION: 1. No acute findings. Stable exam since May 20. Chronic white matter ischemic changes. Retention cyst right maxillary sinus. . <Gladys Yuan - Last Filed: 05/22/18 10:37> - Labs CBC & Chem 7: 05/22/18 05:50 05/22/18 05:50 Laboratory Results - last 24 hr 05/21/18 05/21/18 05/21/18 12:27 13:50 18:28 WBC RBC Hgb Hct MCV MCH MCHC RDW Plt Count MPV Neut % (Auto) Lymph % (Auto) [place] % (Auto) Eos % (Auto) Baso % (Auto) Neut # (Auto) Lymph # (Auto) [place] # (Auto) Eos # (Auto) Baso # (Auto) WBC Differential Differential Comment Sodium Potassium Chloride Carbon Dioxide Anion Gap BUN Creatinine Estimated GFR POC Glucose 201 H 173 H Random Glucose Calcium Phosphorus 3.9 Magnesium 4.1 H 05/22/18 05/22/18 05/22/18 05:42 05:50 05:50 WBC 12.2 H RBC 3.52 L Hgb 9.9 L Hct 30.1 L MCV 85.5 MCH 28.1 MCHC 32.9 RDW 17.5 H Plt Count 231 MPV 8.0 Neut % (Auto) 88.4 H Lymph % (Auto) 6.7 L [place] % (Auto) 4.8 Eos % (Auto) 0.0 Baso % (Auto) 0.1 Neut # (Auto) 10.7 H Lymph # (Auto) 0.8 L [place] # (Auto) 0.6 Eos # (Auto) 0.0 Baso # (Auto) 0.0 WBC Differential . Differential Comment Auto diff final Sodium 146 H Potassium 3.8 Chloride 112 H Carbon Dioxide 24.5 Anion Gap 10 BUN 40 H Creatinine 1.35 H Estimated GFR 39 L POC Glucose 162 H Random Glucose 163 H Calcium 8.0 L Phosphorus Magnesium Microbiology 05/20/18 03:15 Blood - Peripheral Aerobic Blood Culture - Preliminary No growth in 2 days 05/20/18 03:15 Blood - Peripheral Anaerobic Blood Culture - Preliminary No growth in 2 days 05/20/18 03:10 Blood - Peripheral Aerobic Blood Culture - Preliminary No growth in 2 days 05/20/18 03:10 Blood - Peripheral Anaerobic Blood Culture - Preliminary No growth in 2 days 05/20/18 16:35 Sputum - Endotracheal Gram Stain - Final 05/20/18 16:35 Sputum - Endotracheal Sputum Culture - Final No growth in 48 hours - Imaging Impressions Head CT 05/21/18 19:41 CONCLUSION: 1. No acute findings. Stable exam since May 20. Chronic white matter ischemic changes. Retention cyst right maxillary sinus. . <Julián Navarro E - Last Filed: 05/22/18 12:28> Assessment and Plan - Plan This is a 68-year-old female who presented to the emergency room from a intermediate setting on 05/14/2018 according to the record patient was not in respiratory distress on arrival but she was hypotensive and they noted dark bloody stools. Patient was admitted to the intensive care area and is now on ventilator management as well as altered mental status. Patient is currently receiving EEG and is been ruled out for possible CVA secondary to her initial lethargy. Abdominal pain noted per the patient initially on admission according to the record. This could be related to her constipation, proctitis Bloody stools , patient did experience disimpaction and due to her history of Xarelto is high risk for GI bleed or possible hemorrhoid bleeding, versus diverticular. Fecal impaction, disimpacted on admission with hard stool CT scan did note some proctitis History of PE and currently patient is on Xarelto Current hemoglobin was initially 9.4 now 8.4, PT/INR 1.3, bilirubin LFTs and alkaline phosphatase are normal. Patient had CT scan of the abdomen which showed mild proctitis. Currently patient remains critically ill with ventilator management as well as her change in neuro status. Most of the information is being gathered from the record and/or the nursing staff caring for her. Patient currently has significant neurological changes in his receiving EEG for now CVA is been ruled out 05/21/2018 bloody stools/black stools - Hh stable, having pink stools per nurse, OG removed today, was normal gastric output. CT scan did note some proctitis Fecal impaction, disimpacted on admission History of PE on Xarelto ( on Hold) Respiratory failure- S/p intubation, was extubated today 05/22/2018 patient is awake, currently being managed on oxygen per nasal cannula at greater than 6 L and continues to have some shortness of breath as well as audible wheezing. IV fluids continue at 1 25 cc an hour. May consider cutting back on fluids. Patient's currently still in the intensive care setting and will have her O2 sat monitored cautiously. Patient does have some altered mental status and some mild confusion and does not remember what happened to her and why she ended up in the hospital except that she had uncontrolled abdominal pain. She also remembered being constipated and currently is having a couple of loose stools since her admission. Current hemoglobin 9.9 which is stable PT/INR 1.1. Patient will need colonoscopy probable EGD also sometime next week once she is stable from a respiratory status. Plan Diet as tolerated, regular per attending PPI Continue to hold Xarelto Monitor labs with special attention to hemoglobin Transfuse as needed EGD/colonoscopy, possibly sometimes next week when stable from a respiratory status Patient was seen per myself and Dr. Navarro, note was written on his behalf <Gladys Yuan - Last Filed: 05/22/18 10:37> - Plan Patient seen and examined Agree with above Continue current supportive care Monitor labs and transfuse if needed Probable EGD colonoscopy on Friday <Julián Navarro - Last Filed: 05/22/18 12:28>
[2018-05-22] MEDS: ALPRAZolam 0.25 MG Tablet PO PRN (11:34)
--- NOTE | 2018-05-22 13:04 | P.PNCC ---
Subjective Subjective Remarks/Hospital Course: 68-year-old female, with past medical history significant for COPD, PE, on blood thinners, presented initially with complaint of GI bleed. Per EMS report they were called to the shelter for respiratory distress. On their arrival they state that she was not in respiratory distress but she was hypotensive with a systolic blood pressure in the 60s and delayed cap refill. Blood sugar was within normal limits. They noted dark bloody stools. They were able to secure an IV and route did give her about 350 cc of fluids prior to arrival. Her last blood pressure prior to arrival was in the 110s systolic. Patient was able to say that her abdomen hurts but was not answering too many more questions, she denied chest pain, shortness of breath. The CT of the abdomen showed only large amount of stool in the bowel and the patient passed a large volume of stool after manual disimpaction. Shortly after this she has lost consciousness, became unresponsive with GCS of 3 requiring emergent intubation for an airway protection by ED attending. 05/20: Patient still became more hypotensive. Receiving 2 units PRBCs and K Centra 4500 units x1 now. Minimal response on the ventilator. Did withdraw to vigorous stimuli/sternal rub. Afebrile. 05/21: Currently resting in bed in no acute distress. Plan for extubation today. Hemoglobins remained stable. Subjective 05/22: Afebrile. Currently on 8 L nasal cannula. Will provide 1 dose of bumetanide and attempt to diurese. Discontinue IV fluids. CT brain overnight revealed no acute intracranial findings. Objective Vital Signs / I&O: Vital Signs 05/21/18 14:00 05/21/18 14:01 05/21/18 15:00 Temperature Pulse Rate 91 H 90 92 H Respiratory Rate 15 13 14 Blood Pressure 142/64 H 142/64 H 165/70 H Pulse Oximetry 95 96 92 L 05/21/18 16:00 05/21/18 16:01 05/21/18 16:13 Temperature 98.2 F Pulse Rate 88 89 91 H Respiratory Rate 22 17 16 Blood Pressure 165/70 H 203/83 H Pulse Oximetry 94 L 94 L 05/21/18 16:19 05/21/18 17:00 05/21/18 17:04 Temperature Pulse Rate 86 92 H 95 H Respiratory Rate 14 18 22 Blood Pressure 160/70 H 142/63 H Pulse Oximetry 100 94 L 95 05/21/18 18:00 05/21/18 18:01 05/21/18 19:00 Temperature Pulse Rate 97 H 94 H 94 H Respiratory Rate 23 25 H 22 Blood Pressure 135/62 146/66 H Pulse Oximetry 90 L 92 L 92 L 05/21/18 19:36 05/21/18 20:00 05/21/18 20:59 Temperature 99.1 F Pulse Rate 100 H 107 H 109 H Respiratory Rate 22 27 H 24 Blood Pressure Pulse Oximetry 92 L 85 L 05/21/18 21:00 05/21/18 22:00 05/21/18 22:17 Temperature Pulse Rate 103 H 101 H 101 H Respiratory Rate 26 H 17 22 Blood Pressure 136/61 Pulse Oximetry 89 L 92 L 89 L 05/21/18 23:00 05/22/18 00:00 05/22/18 01:00 Temperature Pulse Rate 73 72 76 Respiratory Rate 14 13 18 Blood Pressure 126/58 L 135/62 153/69 H Pulse Oximetry 95 94 L 96 05/22/18 02:00 05/22/18 03:00 05/22/18 04:00 Temperature Pulse Rate 74 73 76 Respiratory Rate 18 14 15 Blood Pressure 158/68 H 147/65 H Pulse Oximetry 94 L 95 92 L 05/22/18 04:01 05/22/18 04:33 05/22/18 05:00 Temperature Pulse Rate 79 82 74 Respiratory Rate 16 20 14 Blood Pressure 152/72 H 161/71 H Pulse Oximetry 93 L 94 L 05/22/18 06:00 05/22/18 07:00 05/22/18 07:01 Temperature Pulse Rate 83 79 79 Respiratory Rate 17 15 14 Blood Pressure 171/79 H 159/67 H Pulse Oximetry 91 L 91 L 91 L 05/22/18 07:38 05/22/18 11:01 05/22/18 11:12 Temperature Pulse Rate 80 93 H Respiratory Rate 16 24 Blood Pressure Pulse Oximetry 91 L 92 L Intake & Output 05/21/18 05/22/18 05/22/18 18:59 06:59 18:59 Intake Total 1600 / 1600 2830 / 2830 Output Total 950 / 950 650 / 650 Balance 650 / 650 2180 / 2180 Weight 89.5 kg Intake: IV 1000 / 1000 2350 / 2350 Diprivan 1000 mg/100 ml Inj 1, 100 / 100 000 mg In 100 ml @ 5 MCG/KG/MIN 2.571 mls/hr IV.CONT TITRATE PRN Rx#:[id number] NS Inj 1,000 ML @ 125 mls/hr IV 1000 / 1000 1999 / 1999 .CONT .Q8H [facility] Rx#:[id number] fentaNYL 10 mcg/mL Premix Drip 250 / 250 2,500 mcg In 250 ml @ 50 MCG/HR 5 mls/hr IV.SIG TITRATE PRN Rx #:[id number] Oral 600 / 600 480 / 480 Output: Urine 650 / 650 Urine Amount (Catheter) 950 / 950 Indwelling Urethral Catheter 950 / 950 Other: Date of Last Bowel Movement 05/20/18 05/21/18 # Bowel Movements 1 Result Diagrams: 05/22/18 05:50 05/22/18 05:50 Other Results: Microbiology 05/20/18 03:15 Blood - Peripheral Aerobic Blood Culture - Preliminary No growth in 2 days 05/20/18 03:15 Blood - Peripheral Anaerobic Blood Culture - Preliminary No growth in 2 days 05/20/18 03:10 Blood - Peripheral Aerobic Blood Culture - Preliminary No growth in 2 days 05/20/18 03:10 Blood - Peripheral Anaerobic Blood Culture - Preliminary No growth in 2 days 05/20/18 16:35 Sputum - Endotracheal Gram Stain - Final 05/20/18 16:35 Sputum - Endotracheal Sputum Culture - Final No growth in 48 hours 05/20/18 15:30 Nasal Wash Influenza Types A,B Antigen - Final Negative for FLU A and B antigen Infection due to influenza A or B cannot be ruled out since the antigen present in the sample may be below the detection limit of the test. Imaging: Abdomen X-Ray 05/20/18 02:10 CONCLUSION: Nonspecific, benign abdomen appearance. Abdomen/Pelvis CT 05/20/18 02:10 CONCLUSION: Rectal fecal impaction and likely mild proctitis Chest X-Ray 05/20/18 02:10 CONCLUSION: Negative examination. Chest X-Ray 05/20/18 05:29 CONCLUSION: Satisfactory endotracheal tube positioning. Slight bibasilar parenchymal opacities. Head CT 05/20/18 05:44 CONCLUSION: No acute intracranial findings . Chest X-Ray 05/20/18 08:57 CONCLUSION: 1. Left IJ central line in the mid SVC without pneumothorax. Head CT 05/21/18 19:41 CONCLUSION: 1. No acute findings. Stable exam since May 20. Chronic white matter ischemic changes. Retention cyst right maxillary sinus. . Objective Remarks: GENERAL: 68-year-old female currently resting in bed in no acute distress on nasal cannula SKIN: Warm and dry. No rash HEAD: Atraumatic. Normocephalic. EYES: Pupils equal and round. No scleral icterus. No injection or drainage. ENT: No nasal bleeding or discharge. Mucous membranes pink and moist. NECK: Trachea midline. No JVD. CARDIOVASCULAR: Regular rate and rhythm. S1, S2 no S4. / systolic murmur r RESPIRATORY: No accessory muscle use. Clear to auscultation. Breath sounds equal bilaterally. GASTROINTESTINAL: Abdomen distended and protuberant with hypoactive bowel sounds appreciate MUSCULOSKELETAL: Extremities trace bilateral lower extremity edema. No obvious deformities. NEUROLOGICAL: Sedated on the ventilator. Positive corneal effect. Positive pupillary reflex 4 mm down to 3 mm. Positive gag and cough. Withdraws to sternal rub. Assessment and Plan - Assessment and Plan Plan: Plan: Neuro/Psych: Depression/anxiety disorder NOS Peripheral neuropathy Chronic insomnia Acute syncope likely vagal Holding alprazolam 0.5 mg twice daily/home medication Currently on trazodone 50 mg at night for depression Gabapentin 100 mg 3 times daily for peripheral neuropathy currently on hold Ofirmev 650 mg IV every 6 hours as needed fever CT brain 05/20 and 05/21 revealed no acute intracranial findings Holding melatonin 3 mg at night for insomnia CV: Essential hypertension Hyperlipidemia Questionable atrial septal defect on echocardiogram 04/[address] Hooks 04/18 admission. Started on rivaroxaban. 2D echocardiogram time revealed EF 65-30%. LVH. Essentially normal pulmonary arterial pressures. Holding anti-pretenses including amlodipine 10 mg daily, captopril/ hydrochlorthiazide 25/25 1 tablet daily, carvedilol 25 mg twice daily and hydralazine 75 mg 3 times daily in light of acute bleeding. On atorvastatin 40 mg daily for dyslipidemia. Hold aspirin 81 mg daily in light of GI bleed Resp: Acute respiratory failure COPD History of pulmonary embolism on chronic rivaroxaban Incentive spirometer while awake Nasal cannula to maintain saturations greater than equal to 90% Albuterol/ipratropium aerosols every 4 hours with albuterol aerosols every 2 as needed for dyspnea Continue budesonide/formoterol 160/4.52 puffs twice daily Chest x-ray post intubation revealed no acute cardiopulmonary findings Extubated 05/21 GI: Fecal impaction GI bleed Hypoalbuminemia Elevated lipase of unclear significance NG tube to low remnant wall suction Pantoprazole 40 mg IV twice daily Docusate serum/senna 1 tablet twice daily for bowel regimen GI consultation for endoscopy Disimpacted in the ED. Possibly vagal during that event. CT abdomen/pelvis revealed fecal disimpaction. Possible proctitis. : History of anterior urethral stricture Chirinos catheter if indicated Endo: Hyperglycemia Chronic prednisone use Sliding scale insulin with aspart insulin medium regimen every 6 hours to maintain euglycemia Check TSH Put on hydrocortisone 100 mg 3 times daily/stress dose steroids and weaned over the next week. 05/22 decrease to 50 twice daily Renal: Acute kidney injury Baseline creatinine around 1.1. Rate currently 1.36 Monitor urine output Accurate I's and O's CT abdomen/pelvis revealed no hydronephrosis. Negative urine eosinophils. Avoid nephrotoxic medication. Heme: Leukocytosis Acute blood loss anemia Chronic rivaroxaban use Receiving 4500 K Centra 05/20 Serial hemoglobins every 6 hours completed and stated Transfuse 2 units PRBCs Recheck CBC in a.m. 05/23 ID: Received vancomycin and piperacillin/tazobactam ED. UA negative Blood cultures x2, sputum, influenza a and B no growth to date. FEN: Hyper magnesium Replace electrolytes as clinically indicated Discontinue IV fluids MSK: Elevated BMI Weight loss encouraged Access -Utilize peripheral IV. Central line if indicated Prophylaxis -GI -pantoprazole -DVT-SCD/holding pharmacological prophylaxis in light of GI bleed Level 2 follow-up Stable from critical care medicine standpoint. Assign care to hospitalist in a.m. 05/23.
[2018-05-22] MEDS: Budesonide-Formoterol 160/4.5 MCG 6 GM Inhaler INH SCH ×2 (18:52→23:58)
[2018-05-22] MEDS: Melatonin 5 MG Tablet PO SCH (21:29)
[2018-05-23] MEDS: Insulin NovoLOG Aspart Correctional Sugar Inj SQ SCH ×4 (02:00→18:12)
[2018-05-23] MEDS: Oral Hygiene Kit OROPHARYNG SCH ×4 (02:01→17:58)
--- NOTE | 2018-05-23 05:14 | XR ---
EXAM DATE: 05/23/2018 5:10 AM EDT AGE/SEX: 68 years / Female INDICATIONS: Shortness of breath, possible pulmonary disease. CLINICAL DATA: This is the patient's subsequent encounter. Patient reports that signs and symptoms h ave been present for 4 - 6 days and indicates a pain score of Nonresponsive. MEDICAL/SURGICAL HISTORY: Chronic obstructive pulmonary disease. Hypertension. PE. s ection. Cholecystectomy. COMPARISON: [facility] [place], CHEST 1V SINGLE AP, 05/20/2018. . FINDINGS: Mild bibasilar parenchymal opacities are present and both sides are slightly worse in the interim. No large effusions seen. No pneumothorax. Endotracheal tube and nasogastric tube out. Left internal jugular central venous catheter with tip in the superior vena cava unchanged. CONCLUSION: Worsening bibasilar parenchymal consolidation. Interim extubation and nasogastric tube removal. Electronically signed by: Brando Yanez MD 05/23/2018 5:12 AM EDT
[2018-05-23 05:35] LABS: Baso % (Auto) 0.1 % (0.0-2.0); Hematocrit 29.5 % (35.0-46.0); Hemoglobin 9.7 gm/dL (11.6-15.3); Lymph # (Auto) 0.8 th/mm3 (1.0-4.8); Lymph % (Auto) 8.9 % (9.0-44.0); Mean Corpuscular HGB Conc 32.8 % (32.0-36.0); Mean Corpuscular Hemoglobin 27.8 pg (27.0-34.0); Mean Corpuscular Volume 84.8 fL (80.0-100.0); Mean Platelet Volume 7.9 fL (7.0-11.0); Mono # (Auto) 0.7 th/mm3 (0.0-0.9); Mono % (Auto) 7.2 % (0.0-8.0); Neut # (Auto) 7.9 th/mm3 (1.8-7.7); Neut % (Auto) 83.8 % (16.0-70.0); Platelet Count 223 th/mm3 (150-450); Red Blood Count 3.48 mil/mm3 (4.00-5.30); White Blood Count 9.5 th/mm3 (4.0-11.0)
[2018-05-23] MEDS: Hydrocortisone Sod Succinate 100 MG Vial IV.PUSH SCH (05:38)
[2018-05-23 06:22] LABS: Alanine Aminotransferase 23 U/L (10-53); Albumin 2.3 g/dL (3.4-5.0); Alkaline Phosphatase 80 U/L (45-117); Anion Gap 9 meq/L (5-15); Aspartate Aminotransferase 25 U/L (15-37); Blood Urea Nitrogen 31 mg/dL (7-18); Chloride 112 meq/L (98-107); Glomerular Filtration Rate 44 mL/min (>89); Glucose,Random 188 mg/dL (74-106); Magnesium 3.1 mg/dL (1.5-2.5); Phosphorus 3.6 mg/dL (2.5-4.9); Potassium 3.1 meq/L (3.5-5.1); Sodium 149 meq/L (136-145); Total Protein 5.5 g/dL (6.4-8.2)
[2018-05-23] MEDS: Chlorhexidine Gluconate 2% 1 Pack (2 Cloths) TOPICAL SCH (06:26)
[2018-05-23] MEDS ORDERED: Vancomycin Consult Pharmacy OTHER PRN (08:12)
[2018-05-23] MEDS: Pantoprazole Inj 40 MG Vial IV.PUSH SCH ×2 (09:05→20:07)
[2018-05-23] MEDS: Carvedilol 12.5 MG Tablet PO SCH ×2 (09:06→20:05)
[2018-05-23] MEDS: Gabapentin 100 MG Capsule PO SCH ×3 (09:06→17:59)
[2018-05-23] MEDS: hydroCHLOROthiazide 25 MG Tablet PO SCH (09:07)
[2018-05-23] MEDS: Senna/Docusate Sodium 8.6/50 MG Tablet PO SCH ×2 (09:07→20:07)
[2018-05-23] MEDS: traZODone 50 MG Tablet PO SCH (09:08)
[2018-05-23] MEDS: Mupirocin 2% Nasal Oint Topical Syringe EACH NARE SCH ×2 (09:09→20:07)
[2018-05-23] MEDS: Piperacil/Tazo 4.5 GM Premix 4.5 GM/100 ML BAG IV.SIG SCH ×3 (09:20→20:08)
--- NOTE | 2018-05-23 09:37 | P.PNIM ---
Subjective Interval history: The patient was resting in bed comfortably. She seems confused about how she ended up in the hospital. She describes some left-sided abdominal pain that has improved. She said she was recently on antibiotics for a urinary tract infection. She said the breathing treatments have been helping with her breathing. Discussed with nursing at the bedside. Physical Exam Vital signs: Vital Signs 05/22/18 11:01 05/22/18 11:12 05/22/18 12:00 Temperature 98.4 F Pulse Rate 93 H 88 Respiratory Rate 24 15 Blood Pressure 174/92 H Pulse Oximetry 92 L 05/22/18 14:43 05/22/18 16:00 05/22/18 18:00 Temperature 98.7 F Pulse Rate 90 85 88 Respiratory Rate 21 22 19 Blood Pressure 161/70 H 172/71 H Pulse Oximetry 93 L 05/22/18 19:00 05/22/18 19:28 05/22/18 20:00 Temperature 100.0 F H Pulse Rate 93 H 92 H 92 H Respiratory Rate 30 H 22 20 Blood Pressure 179/72 H Pulse Oximetry 93 L 92 L 05/22/18 20:01 05/22/18 21:00 05/22/18 22:00 Temperature Pulse Rate 91 H 86 95 H Respiratory Rate 19 26 H 39 H Blood Pressure 154/65 H 131/60 131/69 Pulse Oximetry 93 L 93 L 90 L 05/22/18 23:00 05/22/18 23:09 05/23/18 00:00 Temperature 98.8 F Pulse Rate 75 75 75 Respiratory Rate 17 20 16 Blood Pressure 146/63 H 156/70 H Pulse Oximetry 96 93 L 05/23/18 01:00 05/23/18 02:00 05/23/18 03:00 Temperature Pulse Rate 77 82 71 Respiratory Rate 15 17 15 Blood Pressure 173/74 H 170/75 H 169/72 H Pulse Oximetry 93 L 95 96 05/23/18 03:43 05/23/18 04:00 05/23/18 05:00 Temperature 98.8 F Pulse Rate 76 70 79 Respiratory Rate 16 15 19 Blood Pressure 177/79 H 186/81 H Pulse Oximetry 100 95 05/23/18 06:00 05/23/18 06:01 05/23/18 07:10 Temperature Pulse Rate 73 76 75 Respiratory Rate 13 14 14 Blood Pressure 167/73 H Pulse Oximetry 93 L 93 L 95 Intake & Output 05/22/18 05/23/18 05/23/18 18:59 06:59 18:59 Intake Total 480 / 480 240 / 240 Output Total 1999 950 / 950 Balance -1520 / -1520 -710 / -710 Weight 90.7 kg Intake: Oral 480 / 480 240 / 240 Output: Urine Amount (Catheter) 1949 950 / 950 Indwelling Urethral Catheter 1949 950 / 950 Gastric Drainage 50 / 50 Oral Orogastric Tube 50 / 50 Other: Date of Last Bowel Movement 05/22/18 05/22/18 # Bowel Movements 1 2 Narrative: GENERAL: Resting comfortably. SKIN: Warm and dry. No rash. HEAD: Atraumatic. Normocephalic. EYES: Pupils equal and round. No scleral icterus. No injection or drainage. ENT: No nasal bleeding or discharge. Mucous membranes pink and moist. NECK: Trachea midline. No JVD. CARDIOVASCULAR: Regular rate and rhythm. S1, S2 no S4. RESPIRATORY: Diffuse wheezing. GASTROINTESTINAL: Mild tenderness to palpation on the left. MUSCULOSKELETAL: Extremities trace bilateral lower extremity edema. No obvious deformities. NEUROLOGICAL: Awake and alert. Moves upper and lower extremities. - Urinary Catheter Management Indwelling Urethral Catheter Cath placed during this visit: yes Reason for continuing: Hourly intake/output Insertion date: 05/20/18 Insertion time: 06:00 Results - Labs CBC & Chem 7: 05/23/18 05:02 05/23/18 05:02 Laboratory Results - last 24 hr 05/22/18 05/22/18 05/23/18 14:10 19:01 00:25 WBC RBC Hgb Hct MCV MCH MCHC RDW Plt Count MPV Neut % (Auto) Lymph % (Auto) [place] % (Auto) Eos % (Auto) Baso % (Auto) Neut # (Auto) Lymph # (Auto) [place] # (Auto) Eos # (Auto) Baso # (Auto) WBC Differential Differential Comment Sodium Potassium Chloride Carbon Dioxide Anion Gap BUN Creatinine Estimated GFR POC Glucose 179 H 170 H 214 H Random Glucose Calcium Phosphorus Magnesium Total Bilirubin AST ALT Alkaline Phosphatase Total Protein Albumin 05/23/18 05/23/18 05/23/18 05:02 05:02 05:30 WBC 9.5 RBC 3.48 L Hgb 9.7 L Hct 29.5 L MCV 84.8 MCH 27.8 MCHC 32.8 RDW 18.0 H Plt Count 223 MPV 7.9 Neut % (Auto) 83.8 H Lymph % (Auto) 8.9 L [place] % (Auto) 7.2 Eos % (Auto) 0.0 Baso % (Auto) 0.1 Neut # (Auto) 7.9 H Lymph # (Auto) 0.8 L [place] # (Auto) 0.7 Eos # (Auto) 0.0 Baso # (Auto) 0.0 WBC Differential . Differential Comment Auto diff final Sodium 149 H Potassium 3.1 L Chloride 112 H Carbon Dioxide 28.0 Anion Gap 9 BUN 31 H Creatinine 1.21 H Estimated GFR 44 L POC Glucose 174 H Random Glucose 188 H Calcium 8.0 L Phosphorus 3.6 Magnesium 3.1 H D Total Bilirubin 0.5 AST 25 ALT 23 Alkaline Phosphatase 80 Total Protein 5.5 L Albumin 2.3 L Microbiology 05/20/18 03:15 Blood - Peripheral Aerobic Blood Culture - Preliminary No growth in 2 days 05/20/18 03:15 Blood - Peripheral Anaerobic Blood Culture - Preliminary No growth in 2 days 05/20/18 03:10 Blood - Peripheral Aerobic Blood Culture - Preliminary No growth in 2 days 05/20/18 03:10 Blood - Peripheral Anaerobic Blood Culture - Preliminary No growth in 2 days 05/20/18 16:35 Sputum - Endotracheal Gram Stain - Final 05/20/18 16:35 Sputum - Endotracheal Sputum Culture - Final No growth in 48 hours - Imaging Impressions Chest X-Ray 05/23/18 06:00 CONCLUSION: Worsening bibasilar parenchymal consolidation. Interim extubation and nasogastric tube removal. Assessment and Plan - Plan Acute syncope Likely vagal. CT brain 05/20 and 05/21 revealed no acute intracranial findings. -neuro checks. Essential hypertension Hyperlipidemia Questionable atrial septal defect on echocardiogram 04/[address] Hooks 04/18 admission. Started on rivaroxaban. 2D echocardiogram time revealed EF 65-30%. LVH. Essentially normal pulmonary arterial pressures. -on Coreg, HCTZ, captopril and hydralazine. Adjust regimen as needed. -On atorvastatin 40 mg daily for dyslipidemia. -Hold aspirin and Xarelto in light of GI bleed Acute respiratory failure COPD History of pulmonary embolism on chronic rivaroxaban -Incentive spirometer while awake -Nasal cannula to maintain saturations greater than equal to 90% -Albuterol/ipratropium aerosols every 4 hours with albuterol aerosols every 2 as needed for dyspnea -Continue budesonide/formoterol 160/4.52 puffs twice daily -Chest x-ray post intubation revealed no acute cardiopulmonary findings -Extubated 05/21 -IV vancomycin and Zosyn stared 05/23 for HCAP. -continue IV Solumedrol. Fecal impaction s/p disimpaction in the ED. CT abdomen/pelvis revealed fecal disimpaction. Possible proctitis. GI bleed Hypoalbuminemia Elevated lipase of unclear significance -Pantoprazole 40 mg IV twice daily -GI consultation for endoscopy Acute kidney injury/ Hypokalemia Baseline creatinine around 1.1. Improving. -Monitor urine output -Accurate I's and O's -CT abdomen/pelvis revealed no hydronephrosis. -Negative urine eosinophils. -Avoid nephrotoxic medication. -IVFs with KCl and monitor Leukocytosis Acute blood loss anemia Chronic rivaroxaban use Received 4500 K [address] 05/20 Transfused 2 units PRBCs -Recheck CBC in a.m. 05/24 Prophylaxis -GI -pantoprazole -DVT-SCD/holding pharmacological prophylaxis in light of GI bleed
[2018-05-23] MEDS ORDERED: Vancomycin Inj 1,750 MG in Sodium Chlor 0.9% Inj 500 ML IV.SIG ONE (10:00)
[2018-05-23] MEDS: Chlorhexidine 0.12% Oral Kit 15 ML UDC OROPHARYNG SCH ×3 (10:42→20:08)
[2018-05-23] MEDS: hydrALAZINE 25 MG Tablet PO SCH ×3 (10:52→17:59)
[2018-05-23] MEDS: Sodium Chloride 0.45 % Inj 1,000 ML IV.CONT SCH ×2 (10:52→17:59)
[2018-05-23] MEDS: Lactic Acid (Ammonium Lactate) 12% Lotion 225 GM Bottle TOPICAL SCH (10:53)
[2018-05-23] MEDS: Polyvinyl Alcohol/Povidone PF Opth Drops 0.4 ML Dropperette EACH EYE SCH ×2 (10:53→20:08)
[2018-05-23] MEDS: Budesonide-Formoterol 160/4.5 MCG 6 GM Inhaler INH SCH ×2 (10:54→20:13)
--- NOTE | 2018-05-23 13:59 | P.PNGI ---
Subjective Interval history: Patient is sitting up in the bed more alert answering simple questions Denies any acute nausea or vomiting unable to tolerate regular soft food Mild abdominal pain left and right lateral edges, describes more as a soreness <Gladys Yuan M - Last Filed: 05/23/18 14:31> Physical Exam Vital signs: Vital Signs 05/22/18 14:43 05/22/18 16:00 05/22/18 18:00 Temperature 98.7 F Pulse Rate 90 85 88 Respiratory Rate 21 22 19 Blood Pressure 161/70 H 172/71 H Pulse Oximetry 93 L 05/22/18 19:00 05/22/18 19:28 05/22/18 20:00 Temperature 100.0 F H Pulse Rate 93 H 92 H 92 H Respiratory Rate 30 H 22 20 Blood Pressure 179/72 H Pulse Oximetry 93 L 92 L 05/22/18 20:01 05/22/18 21:00 05/22/18 22:00 Temperature Pulse Rate 91 H 86 95 H Respiratory Rate 19 26 H 39 H Blood Pressure 154/65 H 131/60 131/69 Pulse Oximetry 93 L 93 L 90 L 05/22/18 23:00 05/22/18 23:09 05/23/18 00:00 Temperature 98.8 F Pulse Rate 75 75 75 Respiratory Rate 17 20 16 Blood Pressure 146/63 H 156/70 H Pulse Oximetry 96 93 L 05/23/18 01:00 05/23/18 02:00 05/23/18 03:00 Temperature Pulse Rate 77 82 71 Respiratory Rate 15 17 15 Blood Pressure 173/74 H 170/75 H 169/72 H Pulse Oximetry 93 L 95 96 05/23/18 03:43 05/23/18 04:00 05/23/18 05:00 Temperature 98.8 F Pulse Rate 76 70 79 Respiratory Rate 16 15 19 Blood Pressure 177/79 H 186/81 H Pulse Oximetry 100 95 05/23/18 06:00 05/23/18 06:01 05/23/18 07:00 Temperature Pulse Rate 73 76 70 Respiratory Rate 13 14 18 Blood Pressure 167/73 H 177/74 H Pulse Oximetry 93 L 93 L 93 L 05/23/18 07:10 05/23/18 08:00 05/23/18 09:00 Temperature 99 F Pulse Rate 75 73 75 Respiratory Rate 14 20 16 Blood Pressure 174/74 H 125/76 Pulse Oximetry 95 94 L 91 L 05/23/18 10:00 05/23/18 11:00 05/23/18 11:07 Temperature Pulse Rate 77 82 83 Respiratory Rate 20 22 16 Blood Pressure 182/76 H 162/69 H Pulse Oximetry 93 L 98 Intake & Output 05/22/18 05/23/18 05/23/18 18:59 06:59 18:59 Intake Total 480 / 480 240 / 240 Output Total 1999 950 / 950 Balance -1520 / -1520 -710 / -710 Weight 90.7 kg Intake: Oral 480 / 480 240 / 240 Output: Urine Amount (Catheter) 1949 950 / 950 Indwelling Urethral Catheter 1949 950 / 950 Gastric Drainage 50 / 50 Oral Orogastric Tube 50 / 50 Other: Date of Last Bowel Movement 05/22/18 05/22/18 05/22/18 # Bowel Movements 1 2 - Constitutional mild distress, obese, cachectic - Routine HEENT Exam Head: Present: normocephalic ENT: Present: mucous membranes moist - Routine Neck Exam Present: supple - Routine Respiratory Exam Present: accessory muscle use (No obvious wheezing or rhonchi or shortness of breath at rest) - Routine Cardiovascular Exam Present: S1, S2 (Heart rate controlled) - Routine Abdominal Exam Present: soft, tenderness (Round, right and left lateral quadrant, mild discomfort) - Routine Extremities Exam Present: edema (Mild lower extremity) - Urinary Catheter Management Indwelling Urethral Catheter Cath placed during this visit: yes Reason for continuing: Hourly intake/output Insertion date: 05/20/18 Insertion time: 06:00 <Gladys Yuan - Last Filed: 05/23/18 14:31> Vital signs: Vital Signs 05/22/18 22:00 05/22/18 23:00 05/22/18 23:09 Temperature Pulse Rate 95 H 75 75 Respiratory Rate 39 H 17 20 Blood Pressure 131/69 146/63 H Pulse Oximetry 90 L 96 05/23/18 00:00 05/23/18 01:00 05/23/18 02:00 Temperature 98.8 F Pulse Rate 75 77 82 Respiratory Rate 16 15 17 Blood Pressure 156/70 H 173/74 H 170/75 H Pulse Oximetry 93 L 93 L 95 05/23/18 03:00 05/23/18 03:43 05/23/18 04:00 Temperature 98.8 F Pulse Rate 71 76 70 Respiratory Rate 15 16 15 Blood Pressure 169/72 H 177/79 H Pulse Oximetry 96 100 05/23/18 05:00 05/23/18 06:00 05/23/18 06:01 Temperature Pulse Rate 79 73 76 Respiratory Rate 19 13 14 Blood Pressure 186/81 H 167/73 H Pulse Oximetry 95 93 L 93 L 05/23/18 07:00 05/23/18 07:10 05/23/18 08:00 Temperature 99 F Pulse Rate 70 75 73 Respiratory Rate 18 14 20 Blood Pressure 177/74 H 174/74 H Pulse Oximetry 93 L 95 94 L 05/23/18 09:00 05/23/18 10:00 05/23/18 11:00 Temperature Pulse Rate 75 77 82 Respiratory Rate 16 20 22 Blood Pressure 125/76 182/76 H 162/69 H Pulse Oximetry 91 L 93 L 98 05/23/18 11:07 05/23/18 12:00 05/23/18 13:00 Temperature 98.8 F Pulse Rate 83 74 77 Respiratory Rate 16 20 18 Blood Pressure 162/69 H 150/69 H Pulse Oximetry 94 L 98 05/23/18 14:00 05/23/18 15:00 05/23/18 15:47 Temperature Pulse Rate 76 74 83 Respiratory Rate 16 14 16 Blood Pressure 157/69 H 168/70 H Pulse Oximetry 95 98 05/23/18 16:00 05/23/18 17:00 05/23/18 18:00 Temperature 99 F 98.5 F 98.6 F Pulse Rate 73 64 60 Respiratory Rate 20 22 24 Blood Pressure 177/116 H 175/72 H 162/69 H Pulse Oximetry 98 100 100 05/23/18 20:00 Temperature Pulse Rate Respiratory Rate Blood Pressure Pulse Oximetry 98 Intake & Output 05/23/18 05/23/18 05/24/18 06:59 18:59 06:59 Intake Total 240 / 240 2517.5 / 2517.5 Output Total 950 / 950 1000 / 1000 Balance -710 / -710 1517.5 / 1517.5 Weight 90.7 kg Intake: IV 1817.5 / 1817.5 1/2 Normal Saline Inj 1,000 ML 1000 / 1000 @ 100 mls/hr IV.CONT .Q10H [facility] Rx#:[id number] Zosyn 4.5 GM Premix 4.5 gm In 200 / 200 100 ml @ 200 mls/hr IV.SIG Q6H [facility] Rx#:[id number] KCl 20 mEq Premix Inj 20 meq In 100 / 100 100 ml @ 50 mls/hr IV.SIG Q2H [facility] Rx#:[id number] Vancomycin Inj 1,750 MG In NS 517.5 / 517.5 Inj 500 ML @ 250 mls/hr IV.SIG ONCE ONE Rx#:[id number] Oral 240 / 240 700 / 700 Output: Urine Amount (Catheter) 950 / 950 1000 / 1000 Indwelling Urethral Catheter 950 / 950 1000 / 1000 Other: Date of Last Bowel Movement 05/22/18 05/23/18 # Bowel Movements 2 - Urinary Catheter Management Indwelling Urethral Catheter Cath placed during this visit: no <Julián Navarro E - Last Filed: 05/23/18 21:31> Results - Labs CBC & Chem 7: 05/23/18 05:02 05/23/18 05:02 Laboratory Results - last 24 hr 05/22/18 05/22/18 05/23/18 14:10 19:01 00:25 WBC RBC Hgb Hct MCV MCH MCHC RDW Plt Count MPV Neut % (Auto) Lymph % (Auto) [place] % (Auto) Eos % (Auto) Baso % (Auto) Neut # (Auto) Lymph # (Auto) [place] # (Auto) Eos # (Auto) Baso # (Auto) WBC Differential Differential Comment Sodium Potassium Chloride Carbon Dioxide Anion Gap BUN Creatinine Estimated GFR POC Glucose 179 H 170 H 214 H Random Glucose Calcium Phosphorus Magnesium Total Bilirubin AST ALT Alkaline Phosphatase Total Protein Albumin 05/23/18 05/23/18 05/23/18 05:02 05:02 05:30 WBC 9.5 RBC 3.48 L Hgb 9.7 L Hct 29.5 L MCV 84.8 MCH 27.8 MCHC 32.8 RDW 18.0 H Plt Count 223 MPV 7.9 Neut % (Auto) 83.8 H Lymph % (Auto) 8.9 L [place] % (Auto) 7.2 Eos % (Auto) 0.0 Baso % (Auto) 0.1 Neut # (Auto) 7.9 H Lymph # (Auto) 0.8 L [place] # (Auto) 0.7 Eos # (Auto) 0.0 Baso # (Auto) 0.0 WBC Differential . Differential Comment Auto diff final Sodium 149 H Potassium 3.1 L Chloride 112 H Carbon Dioxide 28.0 Anion Gap 9 BUN 31 H Creatinine 1.21 H Estimated GFR 44 L POC Glucose 174 H Random Glucose 188 H Calcium 8.0 L Phosphorus 3.6 Magnesium 3.1 H D Total Bilirubin 0.5 AST 25 ALT 23 Alkaline Phosphatase 80 Total Protein 5.5 L Albumin 2.3 L Microbiology 05/20/18 03:15 Blood - Peripheral Aerobic Blood Culture - Preliminary No growth in 3 days 05/20/18 03:15 Blood - Peripheral Anaerobic Blood Culture - Preliminary No growth in 3 days 05/20/18 03:10 Blood - Peripheral Aerobic Blood Culture - Preliminary No growth in 3 days 05/20/18 03:10 Blood - Peripheral Anaerobic Blood Culture - Preliminary No growth in 3 days - Imaging Impressions Chest X-Ray 05/23/18 06:00 CONCLUSION: Worsening bibasilar parenchymal consolidation. Interim extubation and nasogastric tube removal. <Gladys Yuan - Last Filed: 05/23/18 14:31> - Labs CBC & Chem 7: 05/23/18 05:02 05/23/18 05:02 Laboratory Results - last 24 hr 05/23/18 05/23/18 05/23/18 00:25 05:02 05:02 WBC 9.5 RBC 3.48 L Hgb 9.7 L Hct 29.5 L MCV 84.8 MCH 27.8 MCHC 32.8 RDW 18.0 H Plt Count 223 MPV 7.9 Neut % (Auto) 83.8 H Lymph % (Auto) 8.9 L [place] % (Auto) 7.2 Eos % (Auto) 0.0 Baso % (Auto) 0.1 Neut # (Auto) 7.9 H Lymph # (Auto) 0.8 L [place] # (Auto) 0.7 Eos # (Auto) 0.0 Baso # (Auto) 0.0 WBC Differential . Differential Comment Auto diff final Sodium 149 H Potassium 3.1 L Chloride 112 H Carbon Dioxide 28.0 Anion Gap 9 BUN 31 H Creatinine 1.21 H Estimated GFR 44 L POC Glucose 214 H Random Glucose 188 H Calcium 8.0 L Phosphorus 3.6 Magnesium 3.1 H D Total Bilirubin 0.5 AST 25 ALT 23 Alkaline Phosphatase 80 Total Protein 5.5 L Albumin 2.3 L 05/23/18 05/23/18 05/23/18 05:30 15:56 18:09 WBC RBC Hgb Hct MCV MCH MCHC RDW Plt Count MPV Neut % (Auto) Lymph % (Auto) [place] % (Auto) Eos % (Auto) Baso % (Auto) Neut # (Auto) Lymph # (Auto) [place] # (Auto) Eos # (Auto) Baso # (Auto) WBC Differential Differential Comment Sodium Potassium Chloride Carbon Dioxide Anion Gap BUN Creatinine Estimated GFR POC Glucose 174 H 248 H 89 Random Glucose Calcium Phosphorus Magnesium Total Bilirubin AST ALT Alkaline Phosphatase Total Protein Albumin Microbiology 05/20/18 03:15 Blood - Peripheral Aerobic Blood Culture - Preliminary No growth in 3 days 05/20/18 03:15 Blood - Peripheral Anaerobic Blood Culture - Preliminary No growth in 3 days 05/20/18 03:10 Blood - Peripheral Aerobic Blood Culture - Preliminary No growth in 3 days 05/20/18 03:10 Blood - Peripheral Anaerobic Blood Culture - Preliminary No growth in 3 days - Imaging Impressions Chest X-Ray 05/23/18 06:00 CONCLUSION: Worsening bibasilar parenchymal consolidation. Interim extubation and nasogastric tube removal. <Julián Navarro E - Last Filed: 05/23/18 21:31> Assessment and Plan - Plan This is a 68-year-old female who presented to the emergency room from a care home setting on 05/14/2018 according to the record patient was not in respiratory distress on arrival but she was hypotensive and they noted dark bloody stools. Patient was admitted to the intensive care area and is now on ventilator management as well as altered mental status. Patient is currently receiving EEG and is been ruled out for possible CVA secondary to her initial lethargy. Abdominal pain noted per the patient initially on admission according to the record. This could be related to her constipation, proctitis Bloody stools , patient did experience disimpaction and due to her history of Xarelto is high risk for GI bleed or possible hemorrhoid bleeding, versus diverticular. Fecal impaction, disimpacted on admission with hard stool CT scan did note some proctitis History of PE and currently patient is on Xarelto Current hemoglobin was initially 9.4 now 8.4, PT/INR 1.3, bilirubin LFTs and alkaline phosphatase are normal. Patient had CT scan of the abdomen which showed mild proctitis. Currently patient remains critically ill with ventilator management as well as her change in neuro status. Most of the information is being gathered from the record and/or the nursing staff caring for her. Patient currently has significant neurological changes in his receiving EEG for now CVA is been ruled out 05/21/2018 bloody stools/black stools - Hh stable, having pink stools per nurse, OG removed today, was normal gastric output. CT scan did note some proctitis Fecal impaction, disimpacted on admission History of PE on Xarelto ( on Hold) Respiratory failure- S/p intubation, was extubated today 05/22/2018 patient is awake, currently being managed on oxygen per nasal cannula at greater than 6 L and continues to have some shortness of breath as well as audible wheezing. IV fluids continue at 1 25 cc an hour. May consider cutting back on fluids. Patient's currently still in the intensive care setting and will have her O2 sat monitored cautiously. Patient does have some altered mental status and some mild confusion and does not remember what happened to her and why she ended up in the hospital except that she had uncontrolled abdominal pain. She also remembered being constipated and currently is having a couple of loose stools since her admission. Current hemoglobin 9.9 which is stable PT/INR 1.1. Patient will need colonoscopy probable EGD also sometime next week once she is stable from a respiratory status. 05/23/2018, patient is more alert today no audible wheezing no nausea no vomiting. Gradual improvement of abdominal pain but still notes some pain on the left and right lateral abdominal edges. Patient states large BM within the past 12 hours. Current hemoglobin 9.7, no obvious bleeding. Continuing to hold Xarelto. Patient does continue to show gradual improvement and discussed with her plans for EGD colonoscopy Friday. No current transfusion so far and patient's hemoglobin remains . Patient had significant fecal impaction with one BM in the past 24 hours since she was disimpacted. Will transition back to clear liquids this p.m. and give bowel regimen lactulose today, to assist pre- prep for EGD colonoscopy Friday. Plan Diet regular, PPI Monitor hemoglobin, PT/INR hold Xarelto Monitor labs with special attention to hemoglobin, transfuse as needed Consent for EGD/colonoscopy, tentatively Friday as long as patient continues to improve. Plan clear liquids for supper and through 05/24/2018 until after EGD colonoscopy Lactulose p.o. twice daily, start today Supportive care Patient was seen per myself and Dr. Navarro, note was written on his behalf <Gladys Yuan M - Last Filed: 05/23/18 14:31> - Plan patient seen and examined agree with above continue current supportive care monitor labs egd colon on friday <Julián Navarro - Last Filed: 05/23/18 21:31>
[2018-05-23] MEDS: Potassium Chlor 20 mEq Premix 20 MEQ/100 ML PIGGYBACK IV.SIG SCH ×2 (15:45→17:58)
[2018-05-23] MEDS: MethylPREDNISolone Sod Succinate Inj 40 MG/ML Vial IV.PUSH SCH ×2 (15:45→23:37)
[2018-05-23] MEDS: ALPRAZolam 0.25 MG Tablet PO PRN (20:05)
[2018-05-23] MEDS: Melatonin 5 MG Tablet PO SCH (20:05)
[2018-05-24] MEDS: Insulin NovoLOG Aspart Correctional Sugar Inj SQ SCH ×4 (01:02→17:44)
[2018-05-24] MEDS: Oral Hygiene Kit OROPHARYNG SCH ×5 (01:02→23:35)
[2018-05-24] MEDS: Piperacil/Tazo 4.5 GM Premix 4.5 GM/100 ML BAG IV.SIG SCH ×4 (04:03→20:37)
[2018-05-24 04:58] LABS: Baso % (Auto) 0.2 % (0.0-2.0); Eos % (Auto) 0.2 % (0.0-4.0); Hematocrit 30.7 % (35.0-46.0); Hemoglobin 9.9 gm/dL (11.6-15.3); Lymph # (Auto) 0.5 th/mm3 (1.0-4.8); Lymph % (Auto) 6.7 % (9.0-44.0); Mean Corpuscular HGB Conc 32.3 % (32.0-36.0); Mean Corpuscular Volume 86.5 fL (80.0-100.0); Mean Platelet Volume 8.1 fL (7.0-11.0); Mono # (Auto) 0.2 th/mm3 (0.0-0.9); Mono % (Auto) 3.2 % (0.0-8.0); Neut # (Auto) 6.1 th/mm3 (1.8-7.7); Neut % (Auto) 89.7 % (16.0-70.0); Platelet Count 200 th/mm3 (150-450); Red Blood Count 3.55 mil/mm3 (4.00-5.30); Red Cell Distribution Width 17.8 % (11.6-17.2); White Blood Count 6.8 th/mm3 (4.0-11.0)
[2018-05-24] MEDS: Chlorhexidine Gluconate 2% 1 Pack (2 Cloths) TOPICAL SCH (05:08)
[2018-05-24 05:10] LABS: Prothrombin Time 10.2 sec (9.8-11.6)
[2018-05-24 05:26] LABS: Calcium 7.5 mg/dL (8.5-10.1); Carbon Dioxide 27.9 meq/L (21.0-32.0); Magnesium 2.3 mg/dL (1.5-2.5); Phosphorus 2.6 mg/dL (2.5-4.9); Potassium 3.4 meq/L (3.5-5.1)
[2018-05-24] MEDS: MethylPREDNISolone Sod Succinate Inj 40 MG/ML Vial IV.PUSH SCH ×3 (07:23→21:38)
[2018-05-24] MEDS: Mupirocin 2% Nasal Oint Topical Syringe EACH NARE SCH ×2 (08:26→20:36)
[2018-05-24] MEDS: Senna/Docusate Sodium 8.6/50 MG Tablet PO SCH ×2 (08:26→20:37)
[2018-05-24] MEDS: hydrALAZINE 25 MG Tablet PO SCH ×3 (08:26→17:44)
[2018-05-24] MEDS: hydroCHLOROthiazide 25 MG Tablet PO SCH (08:27)
[2018-05-24] MEDS: Pantoprazole Inj 40 MG Vial IV.PUSH SCH ×2 (08:27→20:36)
[2018-05-24] MEDS: Gabapentin 100 MG Capsule PO SCH ×3 (08:27→17:44)
[2018-05-24] MEDS: Carvedilol 12.5 MG Tablet PO SCH ×2 (08:27→20:35)
[2018-05-24] MEDS: traZODone 50 MG Tablet PO SCH (08:27)
[2018-05-24] MEDS: Chlorhexidine 0.12% Oral Kit 15 ML UDC OROPHARYNG SCH ×2 (08:28→20:34)
[2018-05-24] MEDS: Lactic Acid (Ammonium Lactate) 12% Lotion 225 GM Bottle TOPICAL SCH (08:28)
[2018-05-24] MEDS: Polyvinyl Alcohol/Povidone PF Opth Drops 0.4 ML Dropperette EACH EYE SCH ×2 (08:28→20:37)
[2018-05-24] MEDS ORDERED: Potassium Chlor 20 mEq Premix 20 MEQ/100 ML PIGGYBACK IV.SIG ONE (09:00)
[2018-05-24] MEDS ORDERED: Sodium Chloride 0.45 % Inj 1,000 ML IV.CONT SCH (09:19)
--- NOTE | 2018-05-24 09:22 | P.PNIM ---
Subjective Interval history: The patient was resting comfortably in bed. She said she has some abdominal pain yesterday but that has improved. She was surprised to hear that she might have a colonoscopy tomorrow. She understood that she was being treated for pneumonia. Discussed with nursing. Physical Exam Vital signs: Vital Signs 05/23/18 10:00 05/23/18 10:01 05/23/18 11:00 Temperature Pulse Rate 77 75 82 Respiratory Rate 21 21 36 H Blood Pressure 182/76 H 182/76 H 162/69 H Pulse Oximetry 93 L 93 L 94 L 05/23/18 11:01 05/23/18 11:07 05/23/18 12:00 Temperature 98.8 F Pulse Rate 80 83 74 Respiratory Rate 24 16 17 Blood Pressure 162/69 H 145/67 H Pulse Oximetry 94 L 94 L 05/23/18 13:00 05/23/18 14:00 05/23/18 15:00 Temperature Pulse Rate 77 76 74 Respiratory Rate 18 20 18 Blood Pressure 150/69 H 157/69 H 168/70 H Pulse Oximetry 91 L 95 95 05/23/18 15:47 05/23/18 16:00 05/23/18 17:00 Temperature 99 F 98.5 F Pulse Rate 83 73 79 Respiratory Rate 16 18 22 Blood Pressure 177/116 H 175/72 H Pulse Oximetry 96 95 05/23/18 18:00 05/23/18 19:00 05/23/18 20:00 Temperature 98.6 F Pulse Rate 77 83 84 Respiratory Rate 18 24 24 Blood Pressure 162/69 H 167/68 H 165/113 H Pulse Oximetry 96 95 98 05/23/18 20:31 05/23/18 21:00 05/23/18 21:31 Temperature Pulse Rate 88 71 70 Respiratory Rate 21 18 16 Blood Pressure 136/77 134/63 128/60 Pulse Oximetry 93 L 94 L 94 L 05/23/18 22:00 05/23/18 22:30 05/23/18 23:00 Temperature Pulse Rate 70 74 75 Respiratory Rate 16 18 20 Blood Pressure 117/57 L 127/60 140/61 Pulse Oximetry 95 94 L 91 L 05/23/18 23:30 05/23/18 23:51 05/24/18 00:00 Temperature 99.4 F Pulse Rate 74 78 70 Respiratory Rate 31 H 21 20 Blood Pressure 146/65 H 156/67 H Pulse Oximetry 93 L 99 05/24/18 00:30 05/24/18 01:00 05/24/18 01:30 Temperature Pulse Rate 71 81 81 Respiratory Rate 17 27 H 21 Blood Pressure 148/64 H 168/74 H 173/73 H Pulse Oximetry 92 L 93 L 92 L 05/24/18 02:00 05/24/18 02:30 05/24/18 03:00 Temperature Pulse Rate 81 71 75 Respiratory Rate 19 17 17 Blood Pressure 165/73 H 143/64 H 159/73 H Pulse Oximetry 92 L 93 L 94 L 05/24/18 03:14 05/24/18 03:30 05/24/18 04:00 Temperature 99 F Pulse Rate 77 73 79 Respiratory Rate 21 17 18 Blood Pressure 151/69 H 170/76 H Pulse Oximetry 100 92 L 05/24/18 07:54 Temperature Pulse Rate 74 Respiratory Rate 20 Blood Pressure Pulse Oximetry 94 L Intake & Output 05/23/18 05/24/18 05/24/18 18:59 06:59 18:59 Intake Total 2517.5 / 2517.5 500 / 500 1000 / 1000 Output Total 1000 / 1000 1000 / 1000 Balance 1517.5 / 1517.5 -500 / -500 1000 / 1000 Weight 93.5 kg Intake: IV 1817.5 / 1817.5 200 / 200 1000 / 1000 1/2 Normal Saline Inj 1,000 ML 1000 / 1000 1000 / 1000 @ 100 mls/hr IV.CONT .Q10H [facility] Rx#:[id number] Zosyn 4.5 GM Premix 4.5 gm In 200 / 200 200 / 200 100 ml @ 200 mls/hr IV.SIG Q6H [facility] Rx#:[id number] KCl 20 mEq Premix Inj 20 meq In 100 / 100 100 ml @ 50 mls/hr IV.SIG Q2H [facility] Rx#:[id number] Vancomycin Inj 1,750 MG In NS 517.5 / 517.5 Inj 500 ML @ 250 mls/hr IV.SIG ONCE ONE Rx#:[id number] Oral 700 / 700 300 / 300 Output: Urine Amount (Catheter) 1000 / 1000 1000 / 1000 Indwelling Urethral Catheter 1000 / 1000 1000 / 1000 Other: Date of Last Bowel Movement 05/23/18 05/24/18 # Bowel Movements 1 Narrative: GENERAL: Resting comfortably. SKIN: Warm and dry. No rash. HEAD: Atraumatic. Normocephalic. EYES: Pupils equal and round. No scleral icterus. No injection or drainage. ENT: No nasal bleeding or discharge. Mucous membranes pink and moist. NECK: Trachea midline. No JVD. CARDIOVASCULAR: Regular rate and rhythm. S1, S2 no S4. RESPIRATORY: Diffuse wheezing improved. GASTROINTESTINAL: Nontender, soft. MUSCULOSKELETAL: Extremities trace bilateral lower extremity edema. No obvious deformities. NEUROLOGICAL: Awake and alert. Moves upper and lower extremities. - Urinary Catheter Management Indwelling Urethral Catheter Cath placed during this visit: yes Reason for continuing: Hourly intake/output Insertion date: 05/20/18 Insertion time: 06:00 Results - Labs CBC & Chem 7: 05/24/18 03:59 05/24/18 03:59 Laboratory Results - last 24 hr 05/23/18 05/23/18 05/23/18 15:56 18:09 23:35 WBC RBC Hgb Hct MCV MCH MCHC RDW Plt Count MPV Neut % (Auto) Lymph % (Auto) [place] % (Auto) Eos % (Auto) Baso % (Auto) Neut # (Auto) Lymph # (Auto) [place] # (Auto) Eos # (Auto) Baso # (Auto) WBC Differential Differential Comment PT INR Sodium Potassium Chloride Carbon Dioxide Anion Gap BUN Creatinine Estimated GFR POC Glucose 248 H 89 120 H Random Glucose Calcium Phosphorus Magnesium 05/24/18 05/24/18 05/24/18 03:59 03:59 03:59 WBC 6.8 RBC 3.55 L Hgb 9.9 L Hct 30.7 L MCV 86.5 MCH 28.0 MCHC 32.3 RDW 17.8 H Plt Count 200 MPV 8.1 Neut % (Auto) 89.7 H Lymph % (Auto) 6.7 L [place] % (Auto) 3.2 Eos % (Auto) 0.2 Baso % (Auto) 0.2 Neut # (Auto) 6.1 Lymph # (Auto) 0.5 L [place] # (Auto) 0.2 Eos # (Auto) 0.0 Baso # (Auto) 0.0 WBC Differential . Differential Comment Auto diff final PT 10.2 INR 1.0 Sodium 144 Potassium 3.4 L Chloride 109 H Carbon Dioxide 27.9 Anion Gap 7 BUN 24 H Creatinine 1.07 H Estimated GFR 51 L POC Glucose Random Glucose 266 H Calcium 7.5 L Phosphorus 2.6 D Magnesium 2.3 D 05/24/18 05:52 WBC RBC Hgb Hct MCV MCH MCHC RDW Plt Count MPV Neut % (Auto) Lymph % (Auto) [place] % (Auto) Eos % (Auto) Baso % (Auto) Neut # (Auto) Lymph # (Auto) [place] # (Auto) Eos # (Auto) Baso # (Auto) WBC Differential Differential Comment PT INR Sodium Potassium Chloride Carbon Dioxide Anion Gap BUN Creatinine Estimated GFR POC Glucose 277 H Random Glucose Calcium Phosphorus Magnesium Microbiology 05/20/18 03:15 Blood - Peripheral Aerobic Blood Culture - Preliminary No growth in 3 days 05/20/18 03:15 Blood - Peripheral Anaerobic Blood Culture - Preliminary No growth in 3 days 05/20/18 03:10 Blood - Peripheral Aerobic Blood Culture - Preliminary No growth in 3 days 05/20/18 03:10 Blood - Peripheral Anaerobic Blood Culture - Preliminary No growth in 3 days Assessment and Plan - Plan Acute syncope Likely vagal. CT brain 05/20 and 05/21 revealed no acute intracranial findings. -neuro checks. Hypertensive urgency Questionable atrial septal defect on echocardiogram 04/[address] Hooks on 04/18 admission. Started on rivaroxaban. 2D echocardiogram revealed EF 65-30%. LVH. Essentially normal pulmonary arterial pressures. -on Coreg, HCTZ, captopril and hydralazine. Add amlodipine. -On atorvastatin 40 mg daily for dyslipidemia. -Hold aspirin and Xarelto in light of GI bleed Acute respiratory failure COPD History of pulmonary embolism on chronic rivaroxaban -Incentive spirometer while awake -Nasal cannula to maintain saturations greater than equal to 90% -Albuterol/ipratropium aerosols every 4 hours with albuterol aerosols every 2 as needed for dyspnea -Continue budesonide/formoterol 160/4.52 puffs twice daily -repeat chest x-ray showed consolidation. -Extubated 05/21 -IV vancomycin and Zosyn stared 05/23 for HCAP. -continue IV Solumedrol. Fecal impaction s/p disimpaction in the ED. CT abdomen/pelvis revealed fecal disimpaction. Possible proctitis. GI bleed- hemoglobin stable Elevated lipase of unclear significance -Pantoprazole 40 mg IV twice daily -GI consultation for endoscopy and colonoscopy 05/25. -diet per GI. Acute kidney injury/ Hypokalemia Baseline creatinine around 1.1. Improving. -Monitor urine output -Accurate I's and O's -CT abdomen/pelvis revealed no hydronephrosis. -Negative urine eosinophils. -Avoid nephrotoxic medication. -IVFs. Leukocytosis Acute blood loss anemia Chronic rivaroxaban use Received 4500 K [address] 05/20 Transfused 2 units PRBCs -Recheck CBC in a.m. 05/25. Prophylaxis -GI -pantoprazole -DVT-SCD/holding pharmacological prophylaxis in light of GI bleed
[2018-05-24] MEDS: amLODIPine 5 MG Tablet PO SCH (10:19)
[2018-05-24] MEDS: Vancomycin Inj 1,250 MG in Sodium Chlor 0.9% Inj 250 ML IV.SIG SCH (11:37)
[2018-05-24 12:53] LABS: Hemoglobin A1c 6.9 % (4.3-6.0)
[2018-05-24] MEDS: Labetalol HCl Inj 100 MG/20 ML Vial IV.PUSH PRN ×2 (14:27→17:29)
[2018-05-24] MEDS: ALPRAZolam 0.25 MG Tablet PO PRN (14:31)
[2018-05-24] MEDS ORDERED: PEG 3350/E-Lyte Soln 4000 ML Bottle PO ONE (15:00)
--- NOTE | 2018-05-24 16:36 | P.PNGI ---
Subjective Interval history: Mild increased anxiety, tearful at times, mild shortness of breath at rest with oxygen per nasal cannula O2 sat 91 Lower abdominal discomfort improved <Gladys Yuan M - Last Filed: 05/24/18 16:30> Physical Exam Vital signs: Vital Signs 05/23/18 17:00 05/23/18 18:00 05/23/18 19:00 Temperature 98.5 F 98.6 F Pulse Rate 79 77 83 Respiratory Rate 22 18 24 Blood Pressure 175/72 H 162/69 H 167/68 H Pulse Oximetry 95 96 95 05/23/18 20:00 05/23/18 20:31 05/23/18 21:00 Temperature Pulse Rate 84 88 71 Respiratory Rate 24 21 18 Blood Pressure 165/113 H 136/77 134/63 Pulse Oximetry 98 93 L 94 L 05/23/18 21:31 05/23/18 22:00 05/23/18 22:30 Temperature Pulse Rate 70 70 74 Respiratory Rate 16 16 18 Blood Pressure 128/60 117/57 L 127/60 Pulse Oximetry 94 L 95 94 L 05/23/18 23:00 05/23/18 23:30 05/23/18 23:51 Temperature Pulse Rate 75 74 78 Respiratory Rate 20 31 H 21 Blood Pressure 140/61 146/65 H Pulse Oximetry 91 L 93 L 05/24/18 00:00 05/24/18 00:30 05/24/18 01:00 Temperature 99.4 F Pulse Rate 70 71 81 Respiratory Rate 20 17 27 H Blood Pressure 156/67 H 148/64 H 168/74 H Pulse Oximetry 99 92 L 93 L 05/24/18 01:30 05/24/18 02:00 05/24/18 02:30 Temperature Pulse Rate 81 81 71 Respiratory Rate 21 19 17 Blood Pressure 173/73 H 165/73 H 143/64 H Pulse Oximetry 92 L 92 L 93 L 05/24/18 03:00 05/24/18 03:14 05/24/18 03:30 Temperature Pulse Rate 75 77 73 Respiratory Rate 17 21 17 Blood Pressure 159/73 H 151/69 H Pulse Oximetry 94 L 100 05/24/18 04:00 05/24/18 04:30 05/24/18 05:00 Temperature 99 F Pulse Rate 79 71 69 Respiratory Rate 18 16 16 Blood Pressure 170/76 H 153/66 H 147/65 H Pulse Oximetry 92 L 92 L 93 L 05/24/18 05:30 05/24/18 06:00 05/24/18 06:30 Temperature Pulse Rate 76 73 72 Respiratory Rate 16 16 16 Blood Pressure 166/72 H 181/78 H 192/84 H Pulse Oximetry 93 L 94 L 95 05/24/18 07:00 05/24/18 07:01 05/24/18 07:30 Temperature Pulse Rate 72 76 72 Respiratory Rate 16 22 18 Blood Pressure 180/85 H 187/77 H Pulse Oximetry 96 95 96 05/24/18 07:54 05/24/18 08:00 05/24/18 08:30 Temperature 98.4 F Pulse Rate 74 73 78 Respiratory Rate 20 16 20 Blood Pressure 204/84 H 217/86 H Pulse Oximetry 94 L 97 93 L 05/24/18 09:00 05/24/18 09:01 05/24/18 10:00 Temperature Pulse Rate 84 82 77 Respiratory Rate 34 H 31 H 15 Blood Pressure 200/81 H Pulse Oximetry 92 L 93 L 93 L 05/24/18 10:01 05/24/18 11:00 05/24/18 11:15 Temperature Pulse Rate 77 80 82 Respiratory Rate 17 16 16 Blood Pressure 142/65 H 160/69 H Pulse Oximetry 93 L 94 L 05/24/18 12:00 05/24/18 13:00 05/24/18 14:00 Temperature 98.8 F Pulse Rate 77 82 82 Respiratory Rate 17 28 H Blood Pressure 176/75 H 169/74 H Pulse Oximetry 93 L 93 L 05/24/18 15:40 05/24/18 16:05 Temperature Pulse Rate 76 Respiratory Rate 18 22 Blood Pressure Pulse Oximetry Intake & Output 05/23/18 05/24/18 05/24/18 18:59 06:59 18:59 Intake Total 2517.5 / 2517.5 500 / 500 1540 / 1540 Output Total 1000 / 1000 1000 / 1000 Balance 1517.5 / 1517.5 -500 / -500 1540 / 1540 Weight 93.5 kg Intake: IV 1817.5 / 1817.5 200 / 200 1540 / 1540 1/2 Normal Saline Inj 1,000 ML 1000 / 1000 1000 / 1000 @ 100 mls/hr IV.CONT .Q10H [facility] Rx#:[id number] Ofirmev Inj 650 mg In 65 ml @ 65 / 65 400 mls/hr IV.SIG Q6H [facility] Rx#: [id number] Zosyn 4.5 GM Premix 4.5 gm In 200 / 200 200 / 200 100 / 100 100 ml @ 200 mls/hr IV.SIG Q6H [facility] Rx#:[id number] KCl 20 mEq Premix Inj 20 meq In 100 / 100 105 / 105 100 ml @ 50 mls/hr IV.SIG ONCE ONE Rx#:[id number] Vancomycin Inj 1,250 MG In NS 270 / 270 Inj 250 ML @ 250 mls/hr IV.SIG Q24H [facility] Rx#:[id number] Vancomycin Inj 1,750 MG In NS 517.5 / 517.5 Inj 500 ML @ 250 mls/hr IV.SIG ONCE ONE Rx#:[id number] Oral 700 / 700 300 / 300 Output: Urine Amount (Catheter) 1000 / 1000 1000 / 1000 Indwelling Urethral Catheter 1000 / 1000 1000 / 1000 Other: Date of Last Bowel Movement 05/23/18 05/24/18 # Bowel Movements 1 - Constitutional mild distress, cachectic, chronically ill appearing, agitated - Routine HEENT Exam Head: Present: normocephalic ENT: Present: mucous membranes dry - Routine Respiratory Exam Present: decreased breath sounds (Low volumes mild tachypnea ) - Routine Cardiovascular Exam Present: S1 (at rest), S2 - Routine Abdominal Exam Present: soft, normoactive bowel sounds (Round,), distended ( soft , mild distention) - Urinary Catheter Management Indwelling Urethral Catheter Cath placed during this visit: yes Reason for continuing: Hourly intake/output Insertion date: 05/20/18 Insertion time: 06:00 <Gladys Yuan - Last Filed: 05/24/18 16:30> Vital signs: Vital Signs 05/23/18 17:00 05/23/18 18:00 05/23/18 19:00 Temperature 98.5 F 98.6 F Pulse Rate 79 77 83 Respiratory Rate 22 18 24 Blood Pressure 175/72 H 162/69 H 167/68 H Pulse Oximetry 95 96 95 05/23/18 20:00 05/23/18 20:31 05/23/18 21:00 Temperature Pulse Rate 84 88 71 Respiratory Rate 18 Blood Pressure 165/113 H 136/77 134/63 Pulse Oximetry 98 93 L 94 L 05/23/18 21:31 05/23/18 22:00 05/23/18 22:30 Temperature Pulse Rate 70 70 74 Respiratory Rate 16 16 18 Blood Pressure 128/60 117/57 L 127/60 Pulse Oximetry 94 L 95 94 L 05/23/18 23:00 05/23/18 23:30 05/23/18 23:51 Temperature Pulse Rate 75 74 78 Respiratory Rate 20 31 H 21 Blood Pressure 140/61 146/65 H Pulse Oximetry 91 L 93 L 05/24/18 00:00 05/24/18 00:30 05/24/18 01:00 Temperature 99.4 F Pulse Rate 70 71 81 Respiratory Rate 20 17 27 H Blood Pressure 156/67 H 148/64 H 168/74 H Pulse Oximetry 99 92 L 93 L 05/24/18 01:30 05/24/18 02:00 05/24/18 02:30 Temperature Pulse Rate 81 81 71 Respiratory Rate 21 19 17 Blood Pressure 173/73 H 165/73 H 143/64 H Pulse Oximetry 92 L 92 L 93 L 05/24/18 03:00 05/24/18 03:14 05/24/18 03:30 Temperature Pulse Rate 75 77 73 Respiratory Rate 17 21 17 Blood Pressure 159/73 H 151/69 H Pulse Oximetry 94 L 100 05/24/18 04:00 05/24/18 04:30 05/24/18 05:00 Temperature 99 F Pulse Rate 79 71 69 Respiratory Rate 18 16 16 Blood Pressure 170/76 H 153/66 H 147/65 H Pulse Oximetry 92 L 92 L 93 L 05/24/18 05:30 05/24/18 06:00 05/24/18 06:30 Temperature Pulse Rate 76 73 72 Respiratory Rate 16 16 16 Blood Pressure 166/72 H 181/78 H 192/84 H Pulse Oximetry 93 L 94 L 95 05/24/18 07:00 05/24/18 07:01 05/24/18 07:30 Temperature Pulse Rate 72 76 72 Respiratory Rate 16 22 18 Blood Pressure 180/85 H 187/77 H Pulse Oximetry 96 95 96 05/24/18 07:54 05/24/18 08:00 05/24/18 08:30 Temperature 98.4 F Pulse Rate 74 73 78 Respiratory Rate 20 16 20 Blood Pressure 204/84 H 217/86 H Pulse Oximetry 94 L 97 93 L 05/24/18 09:00 05/24/18 09:01 05/24/18 10:00 Temperature Pulse Rate 84 82 77 Respiratory Rate 34 H 31 H 15 Blood Pressure 200/81 H Pulse Oximetry 92 L 93 L 93 L 05/24/18 10:01 05/24/18 11:00 05/24/18 11:15 Temperature Pulse Rate 77 80 82 Respiratory Rate 17 16 16 Blood Pressure 142/65 H 160/69 H Pulse Oximetry 93 L 94 L 05/24/18 12:00 05/24/18 13:00 05/24/18 14:00 Temperature 98.8 F Pulse Rate 77 82 82 Respiratory Rate 17 28 H Blood Pressure 176/75 H 169/74 H Pulse Oximetry 93 L 93 L 05/24/18 15:40 05/24/18 16:00 05/24/18 16:05 Temperature Pulse Rate 79 76 Respiratory Rate 18 17 22 Blood Pressure Pulse Oximetry Intake & Output 05/23/18 05/24/18 05/24/18 18:59 06:59 18:59 Intake Total 2517.5 / 2517.5 500 / 500 1640 / 1640 Output Total 1000 / 1000 1000 / 1000 Balance 1517.5 / 1517.5 -500 / -500 1640 / 1640 Weight 93.5 kg Intake: IV 1817.5 / 1817.5 200 / 200 1640 / 1640 1/2 Normal Saline Inj 1,000 ML 1000 / 1000 1000 / 1000 @ 100 mls/hr IV.CONT .Q10H [facility] Rx#:[id number] Ofirmev Inj 650 mg In 65 ml @ 65 / 65 400 mls/hr IV.SIG Q6H [facility] Rx#: [id number] Zosyn 4.5 GM Premix 4.5 gm In 200 / 200 200 / 200 200 / 200 100 ml @ 200 mls/hr IV.SIG Q6H [facility] Rx#:[id number] KCl 20 mEq Premix Inj 20 meq In 100 / 100 105 / 105 100 ml @ 50 mls/hr IV.SIG ONCE ONE Rx#:[id number] Vancomycin Inj 1,250 MG In NS 270 / 270 Inj 250 ML @ 250 mls/hr IV.SIG Q24H [facility] Rx#:[id number] Vancomycin Inj 1,750 MG In NS 517.5 / 517.5 Inj 500 ML @ 250 mls/hr IV.SIG ONCE ONE Rx#:[id number] Oral 700 / 700 300 / 300 Output: Urine Amount (Catheter) 1000 / 1000 1000 / 1000 Indwelling Urethral Catheter 1000 / 1000 1000 / 1000 Other: Date of Last Bowel Movement 05/23/18 05/24/18 # Bowel Movements 1 - Urinary Catheter Management Indwelling Urethral Catheter Cath placed during this visit: no <Julián Navarro E - Last Filed: 05/24/18 16:53> Results - Labs CBC & Chem 7: 05/24/18 03:59 05/24/18 03:59 Laboratory Results - last 24 hr 05/23/18 05/23/18 05/24/18 18:09 23:35 03:59 WBC 6.8 RBC 3.55 L Hgb 9.9 L Hct 30.7 L MCV 86.5 MCH 28.0 MCHC 32.3 RDW 17.8 H Plt Count 200 MPV 8.1 Neut % (Auto) 89.7 H Lymph % (Auto) 6.7 L [place] % (Auto) 3.2 Eos % (Auto) 0.2 Baso % (Auto) 0.2 Neut # (Auto) 6.1 Lymph # (Auto) 0.5 L [place] # (Auto) 0.2 Eos # (Auto) 0.0 Baso # (Auto) 0.0 WBC Differential . Differential Comment Auto diff final PT INR Sodium Potassium Chloride Carbon Dioxide Anion Gap BUN Creatinine Estimated GFR POC Glucose 89 120 H Random Glucose Hemoglobin A1c Calcium Phosphorus Magnesium 05/24/18 05/24/18 05/24/18 03:59 03:59 03:59 WBC RBC Hgb Hct MCV MCH MCHC RDW Plt Count MPV Neut % (Auto) Lymph % (Auto) [place] % (Auto) Eos % (Auto) Baso % (Auto) Neut # (Auto) Lymph # (Auto) [place] # (Auto) Eos # (Auto) Baso # (Auto) WBC Differential Differential Comment PT 10.2 INR 1.0 Sodium 144 Potassium 3.4 L Chloride 109 H Carbon Dioxide 27.9 Anion Gap 7 BUN 24 H Creatinine 1.07 H Estimated GFR 51 L POC Glucose Random Glucose 266 H Hemoglobin A1c 6.9 H Calcium 7.5 L Phosphorus 2.6 D Magnesium 2.3 D 05/24/18 05/24/18 05/24/18 05:52 12:41 12:42 WBC RBC Hgb Hct MCV MCH MCHC RDW Plt Count MPV Neut % (Auto) Lymph % (Auto) [place] % (Auto) Eos % (Auto) Baso % (Auto) Neut # (Auto) Lymph # (Auto) [place] # (Auto) Eos # (Auto) Baso # (Auto) WBC Differential Differential Comment PT INR Sodium Potassium Chloride Carbon Dioxide Anion Gap BUN Creatinine Estimated GFR POC Glucose 277 H 331 H 357 H Random Glucose Hemoglobin A1c Calcium Phosphorus Magnesium Microbiology 05/20/18 03:15 Blood - Peripheral Aerobic Blood Culture - Preliminary No growth in 4 days 05/20/18 03:15 Blood - Peripheral Anaerobic Blood Culture - Preliminary No growth in 4 days 05/20/18 03:10 Blood - Peripheral Aerobic Blood Culture - Preliminary No growth in 4 days 05/20/18 03:10 Blood - Peripheral Anaerobic Blood Culture - Preliminary No growth in 4 days <lGadys Yuan - Last Filed: 05/24/18 16:30> - Labs CBC & Chem 7: 05/24/18 03:59 05/24/18 03:59 Laboratory Results - last 24 hr 05/23/18 05/23/18 05/24/18 18:09 23:35 03:59 WBC 6.8 RBC 3.55 L Hgb 9.9 L Hct 30.7 L MCV 86.5 MCH 28.0 MCHC 32.3 RDW 17.8 H Plt Count 200 MPV 8.1 Neut % (Auto) 89.7 H Lymph % (Auto) 6.7 L [place] % (Auto) 3.2 Eos % (Auto) 0.2 Baso % (Auto) 0.2 Neut # (Auto) 6.1 Lymph # (Auto) 0.5 L [place] # (Auto) 0.2 Eos # (Auto) 0.0 Baso # (Auto) 0.0 WBC Differential . Differential Comment Auto diff final PT INR Sodium Potassium Chloride Carbon Dioxide Anion Gap BUN Creatinine Estimated GFR POC Glucose 89 120 H Random Glucose Hemoglobin A1c Calcium Phosphorus Magnesium 05/24/18 05/24/18 05/24/18 03:59 03:59 03:59 WBC RBC Hgb Hct MCV MCH MCHC RDW Plt Count MPV Neut % (Auto) Lymph % (Auto) [place] % (Auto) Eos % (Auto) Baso % (Auto) Neut # (Auto) Lymph # (Auto) [place] # (Auto) Eos # (Auto) Baso # (Auto) WBC Differential Differential Comment PT 10.2 INR 1.0 Sodium 144 Potassium 3.4 L Chloride 109 H Carbon Dioxide 27.9 Anion Gap 7 BUN 24 H Creatinine 1.07 H Estimated GFR 51 L POC Glucose Random Glucose 266 H Hemoglobin A1c 6.9 H Calcium 7.5 L Phosphorus 2.6 D Magnesium 2.3 D 05/24/18 05/24/18 05/24/18 05:52 12:41 12:42 WBC RBC Hgb Hct MCV MCH MCHC RDW Plt Count MPV Neut % (Auto) Lymph % (Auto) [place] % (Auto) Eos % (Auto) Baso % (Auto) Neut # (Auto) Lymph # (Auto) [place] # (Auto) Eos # (Auto) Baso # (Auto) WBC Differential Differential Comment PT INR Sodium Potassium Chloride Carbon Dioxide Anion Gap BUN Creatinine Estimated GFR POC Glucose 277 H 331 H 357 H Random Glucose Hemoglobin A1c Calcium Phosphorus Magnesium Microbiology 05/20/18 03:15 Blood - Peripheral Aerobic Blood Culture - Preliminary No growth in 4 days 05/20/18 03:15 Blood - Peripheral Anaerobic Blood Culture - Preliminary No growth in 4 days 05/20/18 03:10 Blood - Peripheral Aerobic Blood Culture - Preliminary No growth in 4 days 05/20/18 03:10 Blood - Peripheral Anaerobic Blood Culture - Preliminary No growth in 4 days <Julián Navarro - Last Filed: 05/24/18 16:53> Assessment and Plan - Plan 05/21/2018 bloody stools/black stools - Hh stable, having pink stools per nurse, OG removed today, was normal gastric output. CT scan did note some proctitis Fecal impaction, disimpacted on admission History of PE on Xarelto ( on Hold) Respiratory failure- S/p intubation, was extubated today 05/22/2018 patient is awake, currently being managed on oxygen per nasal cannula at greater than 6 L and continues to have some shortness of breath as well as audible wheezing. IV fluids continue at 1 25 cc an hour. May consider cutting back on fluids. Patient's currently still in the intensive care setting and will have her O2 sat monitored cautiously. Patient does have some altered mental status and some mild confusion and does not remember what happened to her and why she ended up in the hospital except that she had uncontrolled abdominal pain. She also remembered being constipated and currently is having a couple of loose stools since her admission. Current hemoglobin 9.9 which is stable PT/INR 1.1. Patient will need colonoscopy probable EGD also sometime next week once she is stable from a respiratory status. 05/23/2018, patient is more alert today no audible wheezing no nausea no vomiting. Gradual improvement of abdominal pain but still notes some pain on the left and right lateral abdominal edges. Patient states large BM within the past 12 hours. Current hemoglobin 9.7, no obvious bleeding. Continuing to hold Xarelto. Patient does continue to show gradual improvement and discussed with her plans for EGD colonoscopy Friday. No current transfusion so far and patient's hemoglobin remains . Patient had significant fecal impaction with one BM in the past 24 hours since she was disimpacted. Will transition back to clear liquids this p.m. and give bowel regimen lactulose today, to assist pre- prep for EGD colonoscopy Friday. 05/24/2018 patient appears to be weaker and more short of breath today with O2 sat currently 91. States she feels tired and has some bouts of increased anxiety today. Current hemoglobin 9.9. Nurse states loose stools 2, but patient is currently refusing EGD and colonoscopy. She is thinking back when she had cholecystectomy and bowel perforation back in 2013, and currently is struggling with any further procedures. Will offer supportive care for now and monitor patient, continue to hold Xarelto for now. Plan Diet as tolerated PPI Monitor labs, hemoglobin and transfuse as necessary hold Xarelto Monitor labs with special attention to hemoglobin, transfuse as needed Bowel regimen as needed Supportive care Patient was seen per myself and Dr. Navarro, note was written on his behalf <Gladys Yuan M - Last Filed: 05/24/18 16:30> - Plan Patient seen and examined Agree with above Continue with current supportive care Monitor labs Patient refusing endoscopy Not much to add from a GI perspective at this point therefore we will sign off <Julián Navarro - Last Filed: 05/24/18 16:53>
[2018-05-24] MEDS: Budesonide-Formoterol 160/4.5 MCG 6 GM Inhaler INH SCH ×2 (19:57→21:58)
[2018-05-24] MEDS: Melatonin 5 MG Tablet PO SCH (20:36)
[2018-05-24] MEDS ORDERED: Potassium Chloride 25 MEQ Effervescent Tablet PO ONE (21:55)
[2018-05-24] MEDS ORDERED: Potassium Chloride Inj 30 MEQ in Sodium Chlor 0.9% Inj 100 ML IV.CONT ONE (22:54)
[2018-05-25] MEDS: Insulin NovoLOG Aspart Correctional Sugar Inj SQ SCH ×4 (00:35→17:02)
[2018-05-25] MEDS: Labetalol HCl Inj 100 MG/20 ML Vial IV.PUSH PRN ×3 (00:35→07:05)
[2018-05-25] MEDS: Chlorhexidine Gluconate 2% 1 Pack (2 Cloths) TOPICAL SCH (03:01)
[2018-05-25] MEDS: Piperacil/Tazo 4.5 GM Premix 4.5 GM/100 ML BAG IV.SIG SCH ×4 (03:01→21:27)
[2018-05-25] MEDS: Oral Hygiene Kit OROPHARYNG SCH ×4 (03:02→17:06)
[2018-05-25] MEDS: MethylPREDNISolone Sod Succinate Inj 40 MG/ML Vial IV.PUSH SCH ×2 (06:10→21:23)
[2018-05-25 06:16] LABS: Hematocrit 31.2 % (35.0-46.0); Hemoglobin 10.1 gm/dL (11.6-15.3); Mean Corpuscular HGB Conc 32.5 % (32.0-36.0); Mean Corpuscular Hemoglobin 27.9 pg (27.0-34.0); Mean Platelet Volume 7.9 fL (7.0-11.0); Platelet Count 211 th/mm3 (150-450); Red Blood Count 3.62 mil/mm3 (4.00-5.30); Red Cell Distribution Width 17.8 % (11.6-17.2); White Blood Count 7.7 th/mm3 (4.0-11.0)
[2018-05-25 06:43] LABS: Calcium 8.2 mg/dL (8.5-10.1); Carbon Dioxide 30.1 meq/L (21.0-32.0); Magnesium 2.4 mg/dL (1.5-2.5); Potassium 3.8 meq/L (3.5-5.1)
[2018-05-25] MEDS: traZODone 50 MG Tablet PO SCH (08:04)
[2018-05-25] MEDS: hydroCHLOROthiazide 25 MG Tablet PO SCH (08:04)
[2018-05-25] MEDS: Carvedilol 12.5 MG Tablet PO SCH ×2 (08:04→21:24)
[2018-05-25] MEDS: Senna/Docusate Sodium 8.6/50 MG Tablet PO SCH ×2 (08:05→21:27)
[2018-05-25] MEDS: amLODIPine 5 MG Tablet PO SCH (08:05)
[2018-05-25] MEDS: Gabapentin 100 MG Capsule PO SCH ×3 (08:05→17:02)
[2018-05-25] MEDS: hydrALAZINE 25 MG Tablet PO SCH ×3 (08:05→17:01)
[2018-05-25] MEDS: Chlorhexidine 0.12% Oral Kit 15 ML UDC OROPHARYNG SCH ×2 (08:06→21:23)
[2018-05-25] MEDS: Mupirocin 2% Nasal Oint Topical Syringe EACH NARE SCH ×2 (08:06→21:23)
[2018-05-25] MEDS: Lactic Acid (Ammonium Lactate) 12% Lotion 225 GM Bottle TOPICAL SCH (08:07)
[2018-05-25] MEDS: Polyvinyl Alcohol/Povidone PF Opth Drops 0.4 ML Dropperette EACH EYE SCH ×2 (08:08→21:25)
--- NOTE | 2018-05-25 09:15 | P.PNIM ---
Subjective Interval history: The patient said she was confused about the endoscopy and colonoscopy. She says she recently got a breathing treatment. She did endorse some abdominal discomfort and acid reflux. She was wondering if she could take Tylenol. She said she was having diarrhea. Physical Exam Vital signs: Vital Signs 05/24/18 10:00 05/24/18 10:01 05/24/18 11:00 Temperature Pulse Rate 77 77 80 Respiratory Rate 15 17 16 Blood Pressure 142/65 H 160/69 H Pulse Oximetry 93 L 93 L 94 L 05/24/18 11:15 05/24/18 12:00 05/24/18 13:00 Temperature 98.8 F Pulse Rate 82 77 82 Respiratory Rate 16 17 28 H Blood Pressure 176/75 H 169/74 H Pulse Oximetry 93 L 93 L 05/24/18 14:00 05/24/18 15:00 05/24/18 15:40 Temperature Pulse Rate 83 79 Respiratory Rate 20 22 18 Blood Pressure 173/70 H 152/67 H Pulse Oximetry 92 L 92 L 05/24/18 16:00 05/24/18 16:05 05/24/18 17:00 Temperature Pulse Rate 77 76 78 Respiratory Rate 19 22 19 Blood Pressure 168/71 H 164/71 H Pulse Oximetry 92 L 94 L 05/24/18 18:00 05/24/18 19:00 05/24/18 19:31 Temperature Pulse Rate 85 84 79 Respiratory Rate 24 19 16 Blood Pressure 189/79 H 162/67 H Pulse Oximetry 94 L 95 95 05/24/18 20:00 05/24/18 21:00 05/24/18 22:00 Temperature 99.4 F Pulse Rate 83 81 78 Respiratory Rate 20 18 18 Blood Pressure 165/70 H 162/67 H Pulse Oximetry 95 93 L 95 05/24/18 22:04 05/24/18 23:00 05/24/18 23:14 Temperature Pulse Rate 78 81 75 Respiratory Rate 17 28 H 33 H Blood Pressure 156/69 H 172/72 H 165/71 H Pulse Oximetry 96 96 96 05/24/18 23:24 05/25/18 00:00 05/25/18 00:25 Temperature 98.9 F Pulse Rate 83 76 78 Respiratory Rate 24 27 H 22 Blood Pressure 175/77 H 175/77 H Pulse Oximetry 95 93 L 05/25/18 01:00 05/25/18 02:00 05/25/18 02:30 Temperature Pulse Rate 76 72 76 Respiratory Rate 25 H 16 18 Blood Pressure 180/79 H 181/72 H 189/79 H Pulse Oximetry 93 L 98 97 05/25/18 03:00 05/25/18 03:30 05/25/18 04:00 Temperature 98.2 F Pulse Rate 67 66 78 Respiratory Rate 16 16 20 Blood Pressure 160/69 H 162/70 H 188/81 H Pulse Oximetry 98 99 97 05/25/18 04:03 05/25/18 04:30 05/25/18 04:39 Temperature Pulse Rate 80 79 75 Respiratory Rate 22 22 27 H Blood Pressure 208/81 H 219/85 H Pulse Oximetry 96 96 05/25/18 04:47 05/25/18 05:00 05/25/18 05:31 Temperature Pulse Rate 76 71 76 Respiratory Rate 20 18 28 H Blood Pressure 189/79 H 192/81 H 180/77 H Pulse Oximetry 95 95 91 L 05/25/18 06:00 05/25/18 07:26 Temperature Pulse Rate 69 71 Respiratory Rate 16 16 Blood Pressure 182/74 H Pulse Oximetry 96 95 Intake & Output 05/24/18 05/25/18 05/25/18 18:59 06:59 18:59 Intake Total 2440 / 2440 1555 / 1555 Output Total 950 / 950 775 / 775 Balance 1490 / 1490 780 / 780 Weight 94.6 kg Intake: IV 1640 / 1640 1315 / 1315 KCl Inj 30 MEQ In NS Inj 100 ML 115 / 115 @ 38.333 mls/hr IV.CONT ONCE ONE Rx#:[id number] 1/2 Normal Saline Inj 1,000 ML 1000 / 1000 1000 / 1000 @ 75 mls/hr IV.CONT .[id number] ANNE Rx#:[id number] Ofirmev Inj 650 mg In 65 ml @ 65 / 65 400 mls/hr IV.SIG Q6H PRN Rx#: [id number] Zosyn 4.5 GM Premix 4.5 gm In 200 / 200 200 / 200 100 ml @ 200 mls/hr IV.SIG Q6H ANNE Rx#:[id number] KCl 20 mEq Premix Inj 20 meq In 105 / 105 100 ml @ 50 mls/hr IV.SIG ONCE ONE Rx#:[id number] Vancomycin Inj 1,250 MG In NS 270 / 270 Inj 250 ML @ 250 mls/hr IV.SIG Q24H ANNE Rx#:[id number] Oral 800 / 800 240 / 240 Output: Urine Amount (Catheter) 950 / 950 775 / 775 Indwelling Urethral Catheter 950 / 950 775 / 775 Other: Date of Last Bowel Movement 05/25/18 # Bowel Movements 2 2 Narrative: GENERAL: Resting comfortably. SKIN: Warm and dry. No rash. HEAD: Atraumatic. Normocephalic. EYES: Pupils equal and round. No scleral icterus. No injection or drainage. ENT: No nasal bleeding or discharge. Mucous membranes pink and moist. NECK: Trachea midline. No JVD. CARDIOVASCULAR: Regular rate and rhythm. S1, S2 no S4. RESPIRATORY: Diffuse wheezing improved. GASTROINTESTINAL: Nontender, soft. MUSCULOSKELETAL: Extremities trace bilateral lower extremity edema. No obvious deformities. NEUROLOGICAL: Awake and alert. Moves upper and lower extremities. - Urinary Catheter Management Indwelling Urethral Catheter Cath placed during this visit: yes Reason for continuing: Hourly intake/output Insertion date: 05/20/18 Insertion time: 06:00 Results - Labs CBC & Chem 7: 05/25/18 05:30 05/25/18 05:30 Laboratory Results - last 24 hr 05/24/18 05/24/18 05/24/18 03:59 12:41 12:42 WBC RBC Hgb Hct MCV MCH MCHC RDW Plt Count MPV Sodium Potassium Chloride Carbon Dioxide Anion Gap BUN Creatinine Estimated GFR POC Glucose 331 H 357 H Random Glucose Hemoglobin A1c 6.9 H Calcium Phosphorus Magnesium 05/24/18 05/24/18 05/25/18 17:43 19:35 00:26 WBC RBC Hgb Hct MCV MCH MCHC RDW Plt Count MPV Sodium Potassium 3.1 L Chloride Carbon Dioxide Anion Gap BUN Creatinine Estimated GFR POC Glucose 288 H 318 H Random Glucose Hemoglobin A1c Calcium Phosphorus Magnesium 05/25/18 05/25/18 05/25/18 05:30 05:30 06:07 WBC 7.7 RBC 3.62 L Hgb 10.1 L Hct 31.2 L MCV 86.0 MCH 27.9 MCHC 32.5 RDW 17.8 H Plt Count 211 MPV 7.9 Sodium 145 Potassium 3.8 Chloride 107 Carbon Dioxide 30.1 Anion Gap 8 BUN 22 H Creatinine 1.11 H Estimated GFR 49 L POC Glucose 235 H Random Glucose 246 H Hemoglobin A1c Calcium 8.2 L Phosphorus 3.0 Magnesium 2.4 Microbiology 05/20/18 03:15 Blood - Peripheral Aerobic Blood Culture - Preliminary No growth in 4 days 05/20/18 03:15 Blood - Peripheral Anaerobic Blood Culture - Preliminary No growth in 4 days 05/20/18 03:10 Blood - Peripheral Aerobic Blood Culture - Preliminary No growth in 4 days 05/20/18 03:10 Blood - Peripheral Anaerobic Blood Culture - Preliminary No growth in 4 days Assessment and Plan - Plan Acute syncope Likely vagal. CT brain 05/20 and 05/21 revealed no acute intracranial findings. -neuro checks. Hypertensive urgency Questionable atrial septal defect on echocardiogram 04/[address] Hooks on 04/18 admission. Started on rivaroxaban. 2D echocardiogram revealed EF 65-30%. LVH. Essentially normal pulmonary arterial pressures. -on Coreg, HCTZ, captopril and hydralazine. Increase amlodipine. -On atorvastatin 40 mg daily for dyslipidemia. -Hold aspirin and Xarelto in light of GI bleed. Acute respiratory failure COPD History of pulmonary embolism on chronic rivaroxaban -Incentive spirometer while awake. -Nasal cannula to maintain saturations greater than equal to 90%. -Albuterol/ipratropium aerosols every 4 hours with albuterol aerosols every 2 as needed for dyspnea. -Continue budesonide/formoterol 160/4.52 puffs twice daily. -repeat chest x-ray showed consolidation. -Extubated 05/21 -IV vancomycin and Zosyn stared 05/23 for HCAP. -continue IV Solumedrol, wean to BID. Fecal impaction s/p disimpaction in the ED. CT abdomen/pelvis revealed fecal disimpaction. Possible proctitis. GI bleed- hemoglobin stable Elevated lipase of unclear significance -Pantoprazole 40 mg IV twice daily. -GI consultation signed off as pt refusing endoscopy and colonoscopy. She is still considering it. -ADAT. Acute kidney injury/ Hypokalemia Baseline creatinine around 1.1. Improving. -Monitor urine output -Accurate I's and O's -CT abdomen/pelvis revealed no hydronephrosis. -Negative urine eosinophils. -Avoid nephrotoxic medication. -IVFs. Leukocytosis Acute blood loss anemia Chronic rivaroxaban use Received 4500 K [facility] 05/20 Transfused 2 units PRBCs -Recheck CBC in a.m. 05/26. Prophylaxis -GI -pantoprazole -DVT-SCD/holding pharmacological prophylaxis in light of GI bleed Discharge Planning: Transfer to floor if blood pressure improves
[2018-05-25] MEDS ORDERED: amLODIPine 5 MG Tablet PO ONE (09:30)
[2018-05-25] MEDS: ALPRAZolam 0.25 MG Tablet PO PRN ×2 (09:36→22:08)
[2018-05-25] MEDS: Insulin Detemir Inj 1,000 UNIT/10 ML Vial SQ SCH (10:37)
[2018-05-25] MEDS: Pantoprazole Inj 40 MG Vial IV.PUSH SCH ×2 (10:38→21:24)
[2018-05-25] MEDS: Vancomycin Inj 1,250 MG in Sodium Chlor 0.9% Inj 250 ML IV.SIG SCH (10:39)
[2018-05-25] MEDS: Budesonide-Formoterol 160/4.5 MCG 6 GM Inhaler INH SCH ×3 (12:30→21:25)
[2018-05-25] MEDS: Melatonin 5 MG Tablet PO SCH (21:23)
[2018-05-25] MEDS: Acetaminophen 325 MG Tablet PO PRN (22:07)
[2018-05-26] MEDS: Insulin NovoLOG Aspart Correctional Sugar Inj SQ SCH ×5 (01:16→23:58)
[2018-05-26] MEDS: Oral Hygiene Kit OROPHARYNG SCH ×5 (01:17→23:59)
[2018-05-26] MEDS: Labetalol HCl Inj 100 MG/20 ML Vial IV.PUSH PRN ×7 (02:11→22:34)
[2018-05-26] MEDS: Piperacil/Tazo 4.5 GM Premix 4.5 GM/100 ML BAG IV.SIG SCH ×4 (03:10→20:40)
[2018-05-26] MEDS ORDERED: hydrALAZINE HCl Inj 20 MG/ML Vial IV.PUSH ONE (05:40)
[2018-05-26] MEDS: Chlorhexidine 0.12% Oral Kit 15 ML UDC OROPHARYNG SCH ×2 (08:55→20:42)
[2018-05-26] MEDS: Pantoprazole Inj 40 MG Vial IV.PUSH SCH ×2 (08:56→20:42)
[2018-05-26] MEDS: Carvedilol 12.5 MG Tablet PO SCH ×2 (08:57→20:43)
[2018-05-26] MEDS: traZODone 50 MG Tablet PO SCH (08:57)
[2018-05-26] MEDS: hydrALAZINE 25 MG Tablet PO SCH ×3 (08:57→17:10)
[2018-05-26] MEDS: Lactic Acid (Ammonium Lactate) 12% Lotion 225 GM Bottle TOPICAL SCH (08:58)
[2018-05-26] MEDS: hydroCHLOROthiazide 25 MG Tablet PO SCH (08:58)
[2018-05-26] MEDS: Mupirocin 2% Nasal Oint Topical Syringe EACH NARE SCH ×2 (08:58→20:42)
[2018-05-26] MEDS: Gabapentin 100 MG Capsule PO SCH ×3 (08:59→17:10)
[2018-05-26] MEDS: Insulin Detemir Inj 1,000 UNIT/10 ML Vial SQ SCH ×2 (08:59→20:41)
[2018-05-26] MEDS: amLODIPine 5 MG Tablet PO SCH (08:59)
[2018-05-26] MEDS: Senna/Docusate Sodium 8.6/50 MG Tablet PO SCH ×2 (09:00→20:42)
[2018-05-26] MEDS: MethylPREDNISolone Sod Succinate Inj 40 MG/ML Vial IV.PUSH SCH ×2 (09:00→20:41)
[2018-05-26] MEDS: Polyvinyl Alcohol/Povidone PF Opth Drops 0.4 ML Dropperette EACH EYE SCH ×2 (09:01→20:43)
[2018-05-26] MEDS: Budesonide-Formoterol 160/4.5 MCG 6 GM Inhaler INH SCH ×2 (09:01→20:43)
--- NOTE | 2018-05-26 09:13 | P.PNIM ---
Subjective Interval history: The patient was resting in bed comfortably. She changed her mind about the colonoscopy and endoscopy and would like to go ahead with those. She said she has shortness of breath at times. She says she recently had a breathing treatment. Discussed with nursing at the bedside. Physical Exam Vital signs: Vital Signs 05/25/18 10:00 05/25/18 11:00 05/25/18 11:04 Temperature 98.4 F Pulse Rate 82 75 76 Respiratory Rate 19 26 H 18 Blood Pressure 162/74 H 159/66 H Pulse Oximetry 94 L 97 05/25/18 12:00 05/25/18 13:00 05/25/18 13:30 Temperature 98.1 F Pulse Rate 73 71 78 Respiratory Rate 18 17 20 Blood Pressure 141/64 H 144/65 H 163/70 H Pulse Oximetry 96 96 96 05/25/18 14:00 05/25/18 14:30 05/25/18 15:00 Temperature Pulse Rate 81 78 77 Respiratory Rate 24 22 21 Blood Pressure 168/67 H 150/65 H 132/60 Pulse Oximetry 96 96 97 05/25/18 15:17 05/25/18 16:00 05/25/18 17:00 Temperature Pulse Rate 73 78 79 Respiratory Rate 18 28 H 26 H Blood Pressure 145/65 H 148/67 H Pulse Oximetry 94 L 96 05/25/18 17:01 05/25/18 17:30 05/25/18 18:00 Temperature Pulse Rate 78 77 76 Respiratory Rate 21 18 18 Blood Pressure 148/67 H 144/64 H 144/64 H Pulse Oximetry 96 96 97 05/25/18 19:00 05/25/18 19:26 05/25/18 19:30 Temperature Pulse Rate 90 84 Respiratory Rate 18 30 H Blood Pressure 160/76 H 175/72 H 160/76 H Pulse Oximetry 95 95 05/25/18 20:00 05/25/18 20:01 05/25/18 20:30 Temperature 99.0 F Pulse Rate 79 76 77 Respiratory Rate 35 H 18 19 Blood Pressure 147/67 H 165/71 H Pulse Oximetry 96 96 96 05/25/18 21:00 05/25/18 21:30 05/25/18 22:00 Temperature Pulse Rate 76 91 H 77 Respiratory Rate 21 39 H 23 Blood Pressure 162/70 H 183/80 H 137/69 Pulse Oximetry 96 96 96 05/25/18 22:01 05/25/18 22:30 05/25/18 23:00 Temperature Pulse Rate 78 71 67 Respiratory Rate 25 H 31 H 16 Blood Pressure 163/70 H 137/69 132/62 Pulse Oximetry 96 97 99 05/25/18 23:30 05/26/18 00:00 05/26/18 00:02 Temperature 98.7 F Pulse Rate 74 70 71 Respiratory Rate 20 19 20 Blood Pressure 166/73 H 165/70 H Pulse Oximetry 97 97 05/26/18 00:54 05/26/18 01:00 05/26/18 01:30 Temperature Pulse Rate 70 69 69 Respiratory Rate 17 18 17 Blood Pressure 168/76 H 168/72 H 169/72 H Pulse Oximetry 97 96 96 05/26/18 02:00 05/26/18 02:05 05/26/18 02:16 Temperature Pulse Rate 74 82 68 Respiratory Rate 18 24 18 Blood Pressure 176/76 H 197/93 H 193/81 H Pulse Oximetry 96 97 95 05/26/18 02:30 05/26/18 03:00 05/26/18 03:01 Temperature Pulse Rate 68 64 64 Respiratory Rate 19 16 16 Blood Pressure 189/68 H 161/70 H 161/70 H Pulse Oximetry 97 98 98 05/26/18 03:30 05/26/18 04:00 05/26/18 04:25 Temperature 98.9 F Pulse Rate 68 69 68 Respiratory Rate 25 H 21 20 Blood Pressure 188/74 H 174/74 H Pulse Oximetry 98 99 05/26/18 04:31 05/26/18 05:00 05/26/18 05:01 Temperature Pulse Rate 69 71 69 Respiratory Rate 18 23 18 Blood Pressure 209/87 H 173/76 H 173/76 H Pulse Oximetry 100 96 96 05/26/18 06:00 05/26/18 07:00 05/26/18 07:29 Temperature 97.8 F Pulse Rate 73 69 79 Respiratory Rate 17 16 25 H Blood Pressure 168/69 H 160/70 H Pulse Oximetry 96 97 98 Intake & Output 05/25/18 05/26/18 05/26/18 18:59 06:59 18:59 Intake Total 1250 / 1250 780 / 780 Output Total 1000 / 1000 600 / 600 Balance 250 / 250 180 / 180 Weight 93.7 kg Intake: IV 100 / 100 300 / 300 Zosyn 4.5 GM Premix 4.5 gm In 100 / 100 300 / 300 100 ml @ 200 mls/hr IV.SIG Q6H ANNE Rx#:[id number] Oral 1150 / 1150 480 / 480 Output: Urine 1000 / 1000 600 / 600 Other: Date of Last Bowel Movement 05/25/18 05/26/18 # Bowel Movements 3 3 # Incontinent Bowel Movements 3 Narrative: GENERAL: Resting comfortably. SKIN: Warm and dry. No rash. HEAD: Atraumatic. Normocephalic. EYES: Pupils equal and round. No scleral icterus. No injection or drainage. ENT: No nasal bleeding or discharge. Mucous membranes pink and moist. NECK: Trachea midline. No JVD. CARDIOVASCULAR: Regular rate and rhythm. S1, S2 no S4. RESPIRATORY: Diffuse wheezing, improved. GASTROINTESTINAL: Nontender, soft. MUSCULOSKELETAL: Extremities trace bilateral lower extremity edema. No obvious deformities. NEUROLOGICAL: Awake and alert. Moves upper and lower extremities. - Urinary Catheter Management Indwelling Urethral Catheter Cath placed during this visit: yes Reason for continuing: Hourly intake/output Insertion date: 05/20/18 Insertion time: 06:00 Results - Labs CBC & Chem 7: 05/25/18 05:30 05/26/18 03:41 Laboratory Results - last 24 hr 05/25/18 05/25/18 05/26/18 12:07 16:52 01:11 Creatinine Estimated GFR POC Glucose 260 H 277 H 271 H 05/26/18 05/26/18 03:41 05:20 Creatinine 1.02 H Estimated GFR 54 L POC Glucose 200 H Microbiology 05/20/18 03:15 Blood - Peripheral Aerobic Blood Culture - Final No growth in 5 days 05/20/18 03:15 Blood - Peripheral Anaerobic Blood Culture - Final No growth in 5 days 05/20/18 03:10 Blood - Peripheral Aerobic Blood Culture - Final No growth in 5 days 05/20/18 03:10 Blood - Peripheral Anaerobic Blood Culture - Final No growth in 5 days Assessment and Plan - Plan Acute syncope Likely vagal. CT brain 05/20 and 05/21 revealed no acute intracranial findings. -neuro checks. Hypertensive urgency Questionable atrial septal defect on echocardiogram 04/[address] Hooks on 04/18 admission. Started on rivaroxaban. 2D echocardiogram revealed EF 65-30%. LVH. Essentially normal pulmonary arterial pressures. -on Coreg, HCTZ, captopril and hydralazine. Increased amlodipine. -On atorvastatin 40 mg daily for dyslipidemia. -Hold aspirin and Xarelto in light of GI bleed. Acute respiratory failure COPD History of pulmonary embolism on chronic rivaroxaban -Incentive spirometer while awake. -Nasal cannula to maintain saturations greater than equal to 90%. -Albuterol/ipratropium aerosols every 4 hours with albuterol aerosols every 2 as needed for dyspnea. -Continue budesonide/formoterol 160/4.52 puffs twice daily. -repeat chest x-ray 05/26. -Extubated 05/21. -IV vancomycin and Zosyn stared 05/23 for HCAP. -continue IV Solumedrol, weaned to BID. Fecal impaction s/p disimpaction in the ED. CT abdomen/pelvis revealed fecal disimpaction. Possible proctitis. GI bleed- hemoglobin stable Elevated lipase of unclear significance -Pantoprazole 40 mg IV twice daily. -GI consultation signed off as pt refusing endoscopy and colonoscopy. She changed her mind and would like to proceed with the GI studies. Reconsult GI. -ADAT. Acute kidney injury/ Hypokalemia Baseline creatinine around 1.1. Improving. -Monitor urine output -Accurate I's and O's -CT abdomen/pelvis revealed no hydronephrosis. -Negative urine eosinophils. -Avoid nephrotoxic medication. Leukocytosis Acute blood loss anemia Chronic rivaroxaban use Received 4500 K [facility] 05/20 Transfused 2 units PRBCs -Recheck CBC in a.m. 05/26. Prophylaxis -GI -pantoprazole -DVT-SCD/holding pharmacological prophylaxis in light of GI bleed Discharge Planning: Transfer to floor
[2018-05-26] MEDS ORDERED: Pharmacy Ordered Lab Info OTHER ONE (09:45)
--- NOTE | 2018-05-26 09:58 | XR ---
EXAM DATE: 05/26/2018 9:34 AM EDT AGE/SEX: 68 years / Female INDICATIONS: Shortness of breath. CLINICAL DATA: This is the patient's subsequent encounter. Patient reports that signs and symptoms h ave been present for 4 - 6 days and indicates a pain score of 0/10. MEDICAL/SURGICAL HISTORY: . Chronic obstructive pulmonary disease. Hypertension None. COMPARISON: C, CHEST 1V SINGLE AP, 05/23/2018. . FINDINGS: Today's exam is compared to the prior study. There is improving bibasal infiltrates compared to the p rior study. The interstitial edema is also improved on today's exam compared to the prior study. The heart size is within normal limits. There is still some mild blunting of both costophrenic angles sug gestive of small effusions. There is no evidence of pneumothorax. The bony structures are stable. CONCLUSION: Improving bibasilar infiltrates and interstitial edema. Electronically signed by: Yohan Whelan MD 05/26/2018 9:57 AM EDT
[2018-05-26] MEDS: Vancomycin Inj 1,250 MG in Sodium Chlor 0.9% Inj 250 ML IV.SIG SCH (11:00)
[2018-05-26] MEDS: ALPRAZolam 0.25 MG Tablet PO PRN ×2 (12:35→20:41)
[2018-05-26] MEDS ORDERED: Vancomycin Inj 500 MG in Sodium Chlor 0.9% Inj 100 ML IV.SIG ONE (13:00)
--- NOTE | 2018-05-26 13:49 | P.PNGI ---
Subjective Interval history: No bleeding, reports diarrhea. Abdominal pain improved. Physical Exam Vital signs: Vital Signs 05/25/18 14:00 05/25/18 14:30 05/25/18 15:00 Temperature Pulse Rate 81 78 77 Respiratory Rate 24 22 21 Blood Pressure 168/67 H 150/65 H 132/60 Pulse Oximetry 96 96 97 05/25/18 15:17 05/25/18 16:00 05/25/18 17:00 Temperature Pulse Rate 73 78 79 Respiratory Rate 18 28 H 26 H Blood Pressure 145/65 H 148/67 H Pulse Oximetry 94 L 96 05/25/18 17:01 05/25/18 17:30 05/25/18 18:00 Temperature Pulse Rate 78 77 76 Respiratory Rate 21 18 18 Blood Pressure 148/67 H 144/64 H 144/64 H Pulse Oximetry 96 96 97 05/25/18 19:00 05/25/18 19:26 05/25/18 19:30 Temperature Pulse Rate 90 84 Respiratory Rate 18 30 H Blood Pressure 160/76 H 175/72 H 160/76 H Pulse Oximetry 95 95 05/25/18 20:00 05/25/18 20:01 05/25/18 20:30 Temperature 99.0 F Pulse Rate 79 76 77 Respiratory Rate 35 H 18 19 Blood Pressure 147/67 H 165/71 H Pulse Oximetry 96 96 96 05/25/18 21:00 05/25/18 21:30 05/25/18 22:00 Temperature Pulse Rate 76 91 H 77 Respiratory Rate 21 39 H 23 Blood Pressure 162/70 H 183/80 H 137/69 Pulse Oximetry 96 96 96 05/25/18 22:01 05/25/18 22:30 05/25/18 23:00 Temperature Pulse Rate 78 71 67 Respiratory Rate 25 H 31 H 16 Blood Pressure 163/70 H 137/69 132/62 Pulse Oximetry 96 97 99 05/25/18 23:30 05/26/18 00:00 05/26/18 00:02 Temperature 98.7 F Pulse Rate 74 70 71 Respiratory Rate 20 19 20 Blood Pressure 166/73 H 165/70 H Pulse Oximetry 97 97 05/26/18 00:54 05/26/18 01:00 05/26/18 01:30 Temperature Pulse Rate 70 69 69 Respiratory Rate 17 18 17 Blood Pressure 168/76 H 168/72 H 169/72 H Pulse Oximetry 97 96 96 05/26/18 02:00 05/26/18 02:05 05/26/18 02:16 Temperature Pulse Rate 74 82 68 Respiratory Rate 18 24 18 Blood Pressure 176/76 H 197/93 H 193/81 H Pulse Oximetry 96 97 95 05/26/18 02:30 05/26/18 03:00 05/26/18 03:01 Temperature Pulse Rate 68 64 64 Respiratory Rate 19 16 16 Blood Pressure 189/68 H 161/70 H 161/70 H Pulse Oximetry 97 98 98 05/26/18 03:30 05/26/18 04:00 05/26/18 04:25 Temperature 98.9 F Pulse Rate 68 69 68 Respiratory Rate 25 H 21 20 Blood Pressure 188/74 H 174/74 H Pulse Oximetry 98 99 05/26/18 04:31 05/26/18 05:00 05/26/18 05:01 Temperature Pulse Rate 69 71 69 Respiratory Rate 18 23 18 Blood Pressure 209/87 H 173/76 H 173/76 H Pulse Oximetry 100 96 96 05/26/18 06:00 05/26/18 07:00 05/26/18 07:29 Temperature 97.8 F Pulse Rate 73 69 79 Respiratory Rate 17 16 25 H Blood Pressure 168/69 H 160/70 H Pulse Oximetry 96 97 98 05/26/18 08:00 05/26/18 09:00 05/26/18 09:15 Temperature 97.6 F Pulse Rate 75 73 74 Respiratory Rate 31 H 20 21 Blood Pressure 160/70 H 157/111 H 171/76 H Pulse Oximetry 95 95 96 05/26/18 09:30 05/26/18 10:00 05/26/18 10:01 Temperature Pulse Rate 73 78 76 Respiratory Rate 26 H 35 H 35 H Blood Pressure 170/65 H 150/84 H Pulse Oximetry 97 98 97 05/26/18 10:42 05/26/18 11:00 05/26/18 11:16 Temperature 98.8 F Pulse Rate 67 67 Respiratory Rate 22 15 22 Blood Pressure 139/65 Pulse Oximetry 100 98 05/26/18 11:30 05/26/18 12:00 05/26/18 12:30 Temperature Pulse Rate 67 72 68 Respiratory Rate 16 39 H 24 Blood Pressure 141/61 H 146/61 H 146/65 H Pulse Oximetry 98 96 95 05/26/18 13:00 Temperature Pulse Rate 67 Respiratory Rate 26 H Blood Pressure 155/67 H Pulse Oximetry 95 Intake & Output 05/25/18 05/26/18 05/26/18 18:59 06:59 18:59 Intake Total 1250 / 1250 780 / 780 Output Total 1000 / 1000 600 / 600 Balance 250 / 250 180 / 180 Weight 93.7 kg Intake: IV 100 / 100 300 / 300 Zosyn 4.5 GM Premix 4.5 gm In 100 / 100 300 / 300 100 ml @ 200 mls/hr IV.SIG Q6H ANNE Rx#:[id number] Oral 1150 / 1150 480 / 480 Output: Urine 1000 / 1000 600 / 600 Other: Date of Last Bowel Movement 05/25/18 05/26/18 05/26/18 # Bowel Movements 3 3 # Incontinent Bowel Movements 3 - Constitutional no acute distress - Routine HEENT Exam Head: Present: normocephalic Eye: Present: EOMI - Routine Neck Exam Present: supple - Routine Respiratory Exam Present: CTA bilaterally - Routine Cardiovascular Exam Present: RRR - Routine Abdominal Exam Present: soft, normoactive bowel sounds - Urinary Catheter Management Indwelling Urethral Catheter Cath placed during this visit: yes Reason for continuing: Hourly intake/output Insertion date: 05/20/18 Insertion time: 06:00 Results - Labs CBC & Chem 7: 05/25/18 05:30 05/26/18 03:41 Laboratory Results - last 24 hr 05/25/18 05/26/18 05/26/18 16:52 01:11 03:41 Creatinine 1.02 H Estimated GFR 54 L POC Glucose 277 H 271 H Vancomycin Trough 05/26/18 05/26/18 05/26/18 05:20 10:16 12:14 Creatinine Estimated GFR POC Glucose 200 H 373 H Vancomycin Trough 8.0 Microbiology 05/20/18 03:15 Blood - Peripheral Aerobic Blood Culture - Final No growth in 5 days 05/20/18 03:15 Blood - Peripheral Anaerobic Blood Culture - Final No growth in 5 days 05/20/18 03:10 Blood - Peripheral Aerobic Blood Culture - Final No growth in 5 days 05/20/18 03:10 Blood - Peripheral Anaerobic Blood Culture - Final No growth in 5 days - Imaging Impressions Chest X-Ray 05/26/18 09:08 CONCLUSION: Improving bibasilar infiltrates and interstitial edema. Assessment and Plan - Plan Patient seen and examined ow agreeable to gi sallie. 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 EGD/Colonoscopy tomorrow. Patient agreeable. Thank you
[2018-05-26] MEDS ORDERED: PEG 3350/E-Lyte Soln 4000 ML Bottle PO ONE (15:00)
[2018-05-26] MEDS: Melatonin 5 MG Tablet PO SCH (20:42)
[2018-05-27] MEDS: Piperacil/Tazo 4.5 GM Premix 4.5 GM/100 ML BAG IV.SIG SCH ×4 (03:36→20:22)
[2018-05-27] MEDS: Oral Hygiene Kit OROPHARYNG SCH ×3 (03:36→17:28)
[2018-05-27] MEDS: Insulin NovoLOG Aspart Correctional Sugar Inj SQ SCH ×3 (06:19→20:16)
--- NOTE | 2018-05-27 07:56 | P.PNIM ---
Subjective Interval history: in no acute distress. has mild wheezing . no abdominal pain or active GI bleed. had some nausea earlier which has improved. Physical Exam Vital signs: Vital Signs 05/26/18 08:00 05/26/18 09:00 05/26/18 09:15 Temperature 97.6 F Pulse Rate 75 73 74 Respiratory Rate 31 H 20 21 Blood Pressure 160/70 H 157/111 H 171/76 H Pulse Oximetry 95 95 96 05/26/18 09:30 05/26/18 10:00 05/26/18 10:01 Temperature Pulse Rate 73 78 76 Respiratory Rate 26 H 35 H 35 H Blood Pressure 170/65 H 150/84 H Pulse Oximetry 97 98 97 05/26/18 10:42 05/26/18 11:00 05/26/18 11:16 Temperature 98.8 F Pulse Rate 67 67 Respiratory Rate 22 15 22 Blood Pressure 139/65 Pulse Oximetry 100 98 05/26/18 11:30 05/26/18 12:00 05/26/18 12:30 Temperature Pulse Rate 67 72 68 Respiratory Rate 16 39 H 24 Blood Pressure 141/61 H 146/61 H 146/65 H Pulse Oximetry 98 96 95 05/26/18 13:00 05/26/18 14:00 05/26/18 14:30 Temperature Pulse Rate 67 75 77 Respiratory Rate 26 H 35 H 21 Blood Pressure 155/67 H 152/87 H 168/73 H Pulse Oximetry 95 96 90 L 05/26/18 15:00 05/26/18 15:30 05/26/18 15:39 Temperature Pulse Rate 69 66 63 Respiratory Rate 24 17 16 Blood Pressure 149/69 H 155/68 H Pulse Oximetry 97 97 05/26/18 16:00 05/26/18 17:00 05/26/18 17:31 Temperature 98.1 F 98.2 F Pulse Rate 70 71 73 Respiratory Rate 16 20 18 Blood Pressure 174/74 H 172/72 H 192/79 H Pulse Oximetry 97 97 97 05/26/18 17:40 05/26/18 17:56 05/26/18 18:00 Temperature Pulse Rate 74 70 71 Respiratory Rate 25 H 22 22 Blood Pressure 186/78 H 174/73 H 174/73 H Pulse Oximetry 97 98 97 05/26/18 18:35 05/26/18 19:00 05/26/18 20:00 Temperature 98.6 F Pulse Rate 82 71 Respiratory Rate 20 28 H 17 Blood Pressure 178/76 H 162/71 H Pulse Oximetry 97 98 05/26/18 20:52 05/26/18 21:00 05/26/18 22:00 Temperature Pulse Rate 77 74 72 Respiratory Rate 22 19 19 Blood Pressure 195/79 H 157/70 H Pulse Oximetry 98 98 95 05/26/18 23:00 05/26/18 23:52 05/27/18 00:00 Temperature 98.7 F Pulse Rate 71 77 74 Respiratory Rate 22 22 25 H Blood Pressure 185/89 H 217/88 H Pulse Oximetry 97 100 05/27/18 01:00 05/27/18 02:00 05/27/18 03:00 Temperature Pulse Rate 64 62 62 Respiratory Rate 16 15 16 Blood Pressure 159/69 H 159/70 H 157/70 H Pulse Oximetry 96 94 L 96 05/27/18 03:44 05/27/18 04:00 05/27/18 05:00 Temperature 98.9 F Pulse Rate 67 66 65 Respiratory Rate 18 17 15 Blood Pressure 164/71 H 163/69 H Pulse Oximetry 95 94 L 05/27/18 06:00 05/27/18 07:35 Temperature Pulse Rate 74 74 Respiratory Rate 17 25 H Blood Pressure 178/72 H Pulse Oximetry 96 97 Intake & Output 05/26/18 05/27/18 05/27/18 18:59 06:59 18:59 Intake Total 1762.5 / 1762.5 4600 / 4600 Output Total 50 / 50 Balance 1712.5 / 1712.5 4600 / 4600 Weight 92.6 kg Intake: IV 562.5 / 562.5 100 / 100 Zosyn 4.5 GM Premix 4.5 gm In 200 / 200 100 / 100 100 ml @ 200 mls/hr IV.SIG Q6H ANEN Rx#:[id number] Vancomycin Inj 1,250 MG In NS 262.5 / 262.5 Inj 250 ML @ 250 mls/hr IV.SIG Q24H ANNE Rx#:[id number] Vancomycin Inj 500 MG In NS Inj 100 / 100 100 ML @ 200 mls/hr IV.SIG ONCE ONE Rx#:[id number] Oral 1200 / 1200 4500 / 4500 Output: Gastric Drainage 50 / 50 Oral Orogastric Tube 50 / 50 Other: # Voids 6 5 # Incontinent Voids 6 Date of Last Bowel Movement 05/26/18 05/27/18 # Bowel Movements 4 5 # Incontinent Bowel Movements 3 - Constitutional no acute distress - Routine Respiratory Exam Present: CTA bilaterally, wheezes - Routine Cardiovascular Exam Present: RRR - Routine Abdominal Exam Present: soft - Routine Extremities Exam Comments: no pedal edema. - Routine Neurological Exam Present: alert, oriented X3 - Urinary Catheter Management Indwelling Urethral Catheter Cath placed during this visit: yes Reason for continuing: Hourly intake/output Insertion date: 05/20/18 Insertion time: 06:00 Results - Labs CBC & Chem 7: 05/25/18 05:30 05/26/18 03:41 Laboratory Results - last 24 hr 05/26/18 05/26/18 05/26/18 10:16 12:14 17:12 POC Glucose 373 H 361 H Vancomycin Trough 8.0 05/26/18 05/27/18 23:47 05:59 POC Glucose 174 H 195 H Vancomycin Trough - Imaging Impressions Chest X-Ray 05/26/18 09:08 CONCLUSION: Improving bibasilar infiltrates and interstitial edema. - Procedures central line placement. Assessment and Plan - Plan Acute syncope Likely vagal. CT brain 05/20 and 05/21 revealed no acute intracranial findings. -neuro checks. Hypertensive urgency Questionable atrial septal defect on echocardiogram 04/[address] Hooks on 04/18 admission. Started on rivaroxaban. 2D echocardiogram revealed EF 65-30%. LVH. Essentially normal pulmonary arterial pressures. -on Coreg, HCTZ, captopril and hydralazine which will be increased to 100 mg tid. Increased amlodipine. -On atorvastatin 40 mg daily for dyslipidemia. -Hold aspirin and Xarelto in light of GI bleed. Acute respiratory failure COPD History of pulmonary embolism on chronic rivaroxaban -Incentive spirometer while awake. -Nasal cannula to maintain saturations greater than equal to 90%. -Albuterol/ipratropium aerosols every 4 hours with albuterol aerosols every 2 as needed for dyspnea. -Continue budesonide/formoterol 160/4.52 puffs twice daily. -repeat chest x-ray 05/26 with improved infiltrate and interstitia edema- -Extubated 05/21. -IV vancomycin and Zosyn stared 05/23 for HCAP. -continue IV Solumedrol, weaned to BID. Fecal impaction s/p disimpaction in the ED. CT abdomen/pelvis revealed fecal disimpaction. Possible proctitis. GI bleed- hemoglobin stable Elevated lipase of unclear significance -Pantoprazole 40 mg IV twice daily. -GI consultation signed off as pt refusing endoscopy and colonoscopy. She changed her mind and would like to proceed with the GI studies. Reconsulted GI and plan for panendoscopy today. Acute kidney injury/ Hypokalemia Baseline creatinine around 1.1. Improving. -Monitor urine output -Accurate I's and O's -CT abdomen/pelvis revealed no hydronephrosis. -Negative urine eosinophils. -Avoid nephrotoxic medication. Leukocytosis Acute blood loss anemia Chronic rivaroxaban use Received 4500 K [address] 05/20 Transfused 2 units PRBCs H/H stable. Prophylaxis -GI -pantoprazole -DVT-SCD/holding pharmacological prophylaxis in light of GI bleed for transfer to floor. Discharge Planning: awaiting GI w/u.
[2018-05-27] MEDS: Chlorhexidine 0.12% Oral Kit 15 ML UDC OROPHARYNG SCH ×2 (09:27→20:16)
[2018-05-27] MEDS: MethylPREDNISolone Sod Succinate Inj 40 MG/ML Vial IV.PUSH SCH ×2 (09:28→20:14)
[2018-05-27] MEDS: Pantoprazole Inj 40 MG Vial IV.PUSH SCH ×2 (09:28→20:14)
[2018-05-27] MEDS: Mupirocin 2% Nasal Oint Topical Syringe EACH NARE SCH ×2 (09:28→20:15)
[2018-05-27] MEDS: traZODone 50 MG Tablet PO SCH (09:29)
[2018-05-27] MEDS: amLODIPine 5 MG Tablet PO SCH (09:29)
[2018-05-27] MEDS: Carvedilol 12.5 MG Tablet PO SCH ×2 (09:29→20:14)
[2018-05-27] MEDS: Gabapentin 100 MG Capsule PO SCH ×3 (09:29→17:28)
[2018-05-27] MEDS: hydroCHLOROthiazide 25 MG Tablet PO SCH (09:29)
[2018-05-27] MEDS: Lactic Acid (Ammonium Lactate) 12% Lotion 225 GM Bottle TOPICAL SCH (09:30)
[2018-05-27] MEDS: Polyvinyl Alcohol/Povidone PF Opth Drops 0.4 ML Dropperette EACH EYE SCH ×2 (09:30→20:16)
[2018-05-27] MEDS: Budesonide-Formoterol 160/4.5 MCG 6 GM Inhaler INH SCH ×2 (09:30→20:16)
[2018-05-27] MEDS: Senna/Docusate Sodium 8.6/50 MG Tablet PO SCH ×2 (09:30→20:15)
[2018-05-27] MEDS: Insulin Detemir Inj 1,000 UNIT/10 ML Vial SQ SCH ×2 (13:09→20:21)
[2018-05-27] MEDS: Vancomycin Inj 1,750 MG in Sodium Chlor 0.9% Inj 500 ML IV.SIG SCH (13:20)
[2018-05-27] MEDS ORDERED: Lidocaine PF 1% Inj 5 ML Syringe OTHER ONE (14:15)
--- NOTE | 2018-05-27 14:48 | GIPROC ---
[facility] [address] [facility]. [facility], [address] EGD PROCEDURE REPORT EXAM DATE: 05/27/2018 PATIENT NAME: Annemarie Hernández MR #: [id number] BIRTHDATE: 1950 ATTENDING: Cathie Porter MD ORDER #: [id number] TOWEL FOLDER: Robinson Fuentes and Gypsy Gutierrez STATUS: inpatient INDICATIONS: The patient is a 68 yr old female here for an EGD due to iron deficiency anemia PROCEDURE PERFORMED: EGD w/ biopsy MEDICATIONS: None and Per Anesthesia. TOPICAL ANESTHETIC: CONSENT: The patient understands the risks and benefits of the procedure and understands that these risks include, but are not limited to: sedation, allergic reaction, infection, perforation and/or bleeding. Alternative means of evaluation and treatment include, among others: physical exam, x-rays, and/or surgical intervention. The patient elects to proceed with this endoscopic procedure. medical equipment was checked for proper function. Hand hygiene and appropriate measures for infection prevention was taken. After the risks, benefits and alternatives of the procedure were thoroughly explained, Informed consent was verified, confirmed and timeout was successfully executed by the treatment team. The patient was anesthetized with topical anesthesia and the EC-3490Li (Pedi C) endoscope was introduced through the mouth and advanced to the second portion of the duodenum. Retroflexed views revealed no abnormalities The gastroscope was then slowly withdrawn and removed. ESOPHAGUS: The mucosa of the esophagus appeared normal. STOMACH: There was erythematous severe gastritis in the gastric antrum and gastric body. A biopsy was performed using cold forceps. Sample sent for histology. DUODENUM: The duodenal mucosa appeared normal in the bulb and second portion of the duodenum. ADVERSE EVENTS: There were no complications. IMPRESSIONS: 1. The esophagus appeared normal 2. There was erythematous gastritis in the gastric antrum and gastric body; biopsy was performed 3. Normal duodenal mucosa in the bulb and second portion of the duodenum 4. Retroflexed views revealed no abnormalities RECOMMENDATIONS: 1. Await biopsy results. Biopsy results will not be ready for 7-10 days. If you don't hear from us in two weeks, call our office for biopsy results. 2. Anti-reflux regimen 3. Continue PPI PATIENT CONDITION: stable DISPOSITION: Inpatient REPEAT EXAM: Return 1 year EGD pending biopsy results Cathie Porter MD eSigned: Cathie Porter MD 05/27/2018 2:48 PM cc: PATIENT NAME: Annemarie Hernández MR#: [id number]
--- NOTE | 2018-05-27 14:58 | GIPROC ---
[facility] [address] [facility]. [facility], [address] COLONOSCOPY PROCEDURE REPORT EXAM DATE: 05/27/2018 PATIENT NAME: Annemarie Hernández MR #: [id number] BIRTHDATE: 1950 ENDOSCOPIST: Cathie Porter MD ORDER #: [id number] REGISTERED NURSE MIDWIFE: Robinson Fuentes and Gypsy Gutierrez STATUS: inpatient INDICATIONS: The patient is a 68 yr old female here for a colonoscopy due to abdominal pain and iron deficiency anemia PROCEDURE PERFORMED: Colonoscopy with biopsy MEDICATIONS: None and Per Anesthesia. PREP QUALITY: The [place] Bowel Prep Score was Right colon 1, Mid colon 2, and Left colon 2. Total = 5. ESTIMATED BLOOD LOSS: None CONSENT: The patient understands the risks and benefits of the procedure and understands that these risks include, but are not limited to: sedation, allergic reaction, infection, perforation and/or bleeding. Alternative means of evaluation and treatment include, among others: physical exam, x-rays, and/or surgical intervention. The patient elects to proceed with this endoscopic procedure. medical equipment was checked for proper function. Hand hygiene and appropriate measures for infection prevention was taken. After the risks, benefits and alternatives of the procedure were thoroughly explained, Informed consent was verified, confirmed and timeout was successfully executed by the treatment team. A digital exam revealed external hemorrhoids The Pentax EC-3490Li endoscope was introduced through the anus and advanced to the cecum, which was identified by both the appendix and ileocecal valve. The instrument was then slowly withdrawn as the colon was fully examined. COLON FINDINGS: Severe diverticulosis was noted throughout the entire examined colon. No bleeding was noted from the diverticulosis. A large sized circumferential patch of colitis was found in the sigmoid colon. The mucosa was congested, edematous, erythematous, friable and ulcerated. This is consistent with ischemic colitis disease. Multiple biopsies were performed using cold forceps. Retroflexed views revealed internal hemorrhoids and Retroflexed views revealed medium internal hemorrhoids The scope was then completely withdrawn from the patient and the procedure terminated. PROCEDURE WITHDRAWAL TIME:6minutes ADVERSE EVENTS: There were no complications. IMPRESSIONS: 1. Severe diverticulosis was noted throughout the entire examined colon 2. Large sized circumferential colitis was found in the sigmoid colon; The mucosa was congested, edematous, erythematous, friable and ulcerated; This is consistent with ischemic colitis.; multiple biopsies were performed using cold forceps 3. Retroflexed views revealed internal hemorrhoids 4. Retroflexed views revealed medium internal hemorrhoids 5. Revealed external hemorrhoids RECOMMENDATIONS: 1. Await biopsy results. Biopsy results will not be ready for 7-10 days. If you don't hear from us in two weeks, call our office for results. 2. Continue surveillance 3. High fiber diet 4. Yearly hemoccult 5. No seeds, nuts and popcorn in diet RECALL: Return 1 month Colonoscopy, pending biopsy results Cathie Porter MD eSigned: Cathie Porter MD 05/27/2018 2:57 PM cc: PATIENT NAME: Annemarie Hernández MR#: [id number]
--- NOTE | 2018-05-27 16:48 | CT ---
EXAM DATE: 05/27/2018 3:34 PM EDT AGE/SEX: 68 years / Female INDICATIONS: Mesentery Ischemia. CLINICAL DATA: This is the patient's initial encounter. Patient reports that signs and symptoms have been present for 1 day and indicates a pain score of 0/10. MEDICAL/SURGICAL HISTORY: Chronic obstructive pulmonary disease. Hypertension. Pulmonary emboli. Cholecystectomy. RADIATION DOSE: 7.4 CTDI (mGy) COMPARISON: [facility] [place], CT ABDOMEN & PELVIS W/O CONTRAST, 05/20/2018. . TECHNIQUE: Volumetric scanning was performed using a multi-row detector CT scanner during bolus infu lidia of 75 ml Omnipaque 350 (iohexol) nonionic water-soluble contrast as a single exam dose. . The data was post processed with a variety of visualization algorithms including full volume maximum inte nsity projection, multi-planar sliding thin slab reformation, curved planar reformation, and surface rendering techniques. Using automated exposure control and adjustment of the mA and/or kV according to patient size, radiation dose was kept as low as reasonably achievable to obtain optimal diagnostic quality images. DICOM format image data is available electronically for review and comparison. FINDINGS: Lower chest: There are new small bilateral pleural effusions with compressive atelectasis. Hepatobiliary: No focal liver lesion is identified. There is pneumobilia. Gallbladder is absent with clips in the gallbladder fossa. No bile duct dilatation is appreciated. Kidneys: No hydronephrosis, stone, or mass. Adrenal Glands: Within normal limits. Spleen: Within normal limits. Pancreas: No mass is visualized. There is air within the main pancreatic duct in the head and proxima l body. Vascular: There is severe atherosclerotic disease of the abdominal aorta. Infrarenal aorta is ectatic measuring up to 2.6 x 2.2 cm. The celiac trunk demonstrates no aneurysm or significant stenosis. The re is atherosclerotic calcification throughout the splenic artery. No hepatic artery or splenic arter y aneurysm is seen. The superior mesenteric artery demonstrates mild atherosclerotic plaque near the origin. More distally there is mild narrowing at the first branching. However, the more peripheral br anches appear patent. The ANGIE is patent. There are patent renal arteries bilaterally with suspected a ccessory renal artery supplying the right lower pole. Mild plaque is present in the proximal right re nal artery and there is moderate plaque causing narrowing of the proximal left renal artery. Common i liac arteries demonstrate severe atherosclerotic disease but no aneurysm. Internal and external iliac arteries are also patent. Bowel/Mesentery: The stomach and small bowel demonstrate no acute abnormality. 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 The colon demonstrates no intramural air. There is small volume of f ree fluid in the pelvis. Rectum demonstrates circumferential wall thickening with mild surrounding in flammation. No intramural air is visualized. Abdominal Wall: There is diffuse subcutaneous edema. Retroperitoneum: No lymphadenopathy. Bladder: No wall thickening or mass. Reproductive: No definite abnormality is appreciated. Inguinal: No lymphadenopathy or hernia. Musculoskeletal: No acute osseous abnormality is identified. There are degenerative changes of the chloe mbar spine. CONCLUSION: 1. There is severe atherosclerotic disease of the aorta. Atherosclerotic disease is present within t he superior mesenteric artery but no high-grade stenosis or occlusion is visualized on the arterial s glen of the mesenteric vasculature. Please note that the venous mesenteric structures are not well bushra luated on this examination timed for arterial enhancement. Additionally, there are no secondary findi ngs to suggest mesenteric ischemia including no intramural air. 2. Wall thickening of the rectum suggesting a proctitis. 3. New small bilateral pleural effusions and new small volume of free fluid in the abdomen and pelvi s. Also, anasarca is new. Electronically signed by: Brando Vernon MD 05/27/2018 4:47 PM EDT
[2018-05-27] MEDS: Melatonin 5 MG Tablet PO SCH (20:14)
[2018-05-27] MEDS: ALPRAZolam 0.25 MG Tablet PO PRN (20:36)
[2018-05-28] MEDS: Insulin NovoLOG Aspart Correctional Sugar Inj SQ SCH ×4 (00:44→19:40)
[2018-05-28] MEDS: Oral Hygiene Kit OROPHARYNG SCH ×4 (00:45→15:24)
[2018-05-28] MEDS: Piperacil/Tazo 4.5 GM Premix 4.5 GM/100 ML BAG IV.SIG SCH ×4 (02:38→23:44)
[2018-05-28 04:52] LABS: Baso % (Auto) 0.1 % (0.0-2.0); Hematocrit 33.6 % (35.0-46.0); Hemoglobin 10.7 gm/dL (11.6-15.3); Lymph # (Auto) 0.5 th/mm3 (1.0-4.8); Lymph % (Auto) 7.4 % (9.0-44.0); Mean Corpuscular HGB Conc 31.9 % (32.0-36.0); Mean Corpuscular Hemoglobin 27.6 pg (27.0-34.0); Mean Corpuscular Volume 86.6 fL (80.0-100.0); Mean Platelet Volume 8.2 fL (7.0-11.0); Mono # (Auto) 0.3 th/mm3 (0.0-0.9); Neut # (Auto) 6.1 th/mm3 (1.8-7.7); Neut % (Auto) 87.5 % (16.0-70.0); Platelet Count 218 th/mm3 (150-450); Red Blood Count 3.89 mil/mm3 (4.00-5.30); Red Cell Distribution Width 17.7 % (11.6-17.2)
[2018-05-28 05:16] LABS: Calcium 8.3 mg/dL (8.5-10.1); Carbon Dioxide 31.3 meq/L (21.0-32.0); Potassium 3.4 meq/L (3.5-5.1)
--- NOTE | 2018-05-28 08:08 | P.PNIM ---
Subjective Interval history: f/u; respiratory failure/colitis in no acute distress. however easily desaturates upon moving. still with bilateral wheezing. has some abdominal pain. no fever. d/w the RN. Physical Exam Vital signs: Vital Signs 05/27/18 08:30 05/27/18 09:00 05/27/18 09:01 Temperature Pulse Rate 62 60 61 Respiratory Rate 16 12 7 L Blood Pressure 185/78 H 169/72 H Pulse Oximetry 95 94 L 96 05/27/18 09:30 05/27/18 10:00 05/27/18 10:31 Temperature Pulse Rate 66 63 62 Respiratory Rate 20 16 15 Blood Pressure 160/70 H 180/77 H 133/63 Pulse Oximetry 99 99 100 05/27/18 11:00 05/27/18 11:30 05/27/18 12:00 Temperature Pulse Rate 62 62 60 Respiratory Rate 10 L 17 17 Blood Pressure 138/65 148/65 H Pulse Oximetry 96 99 95 05/27/18 12:01 05/27/18 12:30 05/27/18 13:00 Temperature Pulse Rate 62 64 63 Respiratory Rate 23 16 21 Blood Pressure 130/59 L 144/64 H Pulse Oximetry 100 97 94 L 05/27/18 13:01 05/27/18 13:30 05/27/18 14:04 Temperature Pulse Rate 64 62 72 Respiratory Rate 33 H 24 24 Blood Pressure 143/61 H 143/64 H Pulse Oximetry 96 97 05/27/18 15:15 05/27/18 15:30 05/27/18 15:58 Temperature 97.7 F 97.7 F Pulse Rate 64 65 71 Respiratory Rate 14 14 Blood Pressure 131/58 L 134/60 Pulse Oximetry 98 97 100 05/27/18 15:59 05/27/18 16:00 05/27/18 16:30 Temperature Pulse Rate 71 68 69 Respiratory Rate 24 13 14 Blood Pressure 139/75 143/65 H 145/66 H Pulse Oximetry 96 97 95 05/27/18 17:00 05/27/18 17:01 05/27/18 17:31 Temperature Pulse Rate 66 65 68 Respiratory Rate 16 15 16 Blood Pressure 145/61 H 139/63 Pulse Oximetry 95 96 99 05/27/18 18:00 05/27/18 18:41 05/27/18 19:00 Temperature Pulse Rate 65 69 73 Respiratory Rate 16 18 24 Blood Pressure 129/60 142/65 H 136/65 Pulse Oximetry 97 94 L 93 L 05/27/18 19:39 05/27/18 20:00 05/27/18 21:00 Temperature 98.7 F Pulse Rate 68 68 Respiratory Rate 18 19 Blood Pressure 123/57 L 118/58 L Pulse Oximetry 94 L 94 L 94 L 05/27/18 22:00 05/27/18 23:00 05/28/18 00:00 Temperature 98.1 F Pulse Rate 60 62 61 Respiratory Rate 14 15 15 Blood Pressure 123/58 L 154/65 H 138/63 Pulse Oximetry 93 L 94 L 94 L 05/28/18 01:00 05/28/18 01:15 05/28/18 02:00 Temperature Pulse Rate 77 65 66 Respiratory Rate 21 17 22 Blood Pressure 172/74 H 156/70 H Pulse Oximetry 95 96 94 L 05/28/18 03:00 05/28/18 04:00 05/28/18 05:00 Temperature 98.3 F Pulse Rate 58 L 58 L 64 Respiratory Rate 15 14 17 Blood Pressure 147/65 H 149/67 H 159/68 H Pulse Oximetry 93 L 95 96 05/28/18 06:00 05/28/18 07:31 Temperature Pulse Rate 57 L 62 Respiratory Rate 15 17 Blood Pressure 162/70 H Pulse Oximetry 95 96 Intake & Output 05/27/18 05/28/18 05/28/18 18:59 06:59 18:59 Intake Total 917.5 / 917.5 920 / 920 Balance 917.5 / 917.5 920 / 920 Weight 94.1 kg Intake: IV 717.5 / 717.5 200 / 200 Zosyn 4.5 GM Premix 4.5 gm In 200 / 200 200 / 200 100 ml @ 200 mls/hr IV.SIG Q6H ANNE Rx#:[id number] Vancomycin Inj 1,750 MG In NS 517.5 / 517.5 Inj 500 ML @ 250 mls/hr IV.SIG Q24H ANNE Rx#:[id number] Oral 720 / 720 Anesthesia Amount 200 / 200 Other: # Voids 5 5 Date of Last Bowel Movement 05/27/18 05/28/18 # Bowel Movements 3 2 - Constitutional mild distress - Routine Respiratory Exam Present: CTA bilaterally, prolonged expiratory phase, wheezes - Routine Cardiovascular Exam Present: RRR - Routine Abdominal Exam Present: soft, tenderness (mild generalized tenderness.) - Routine Extremities Exam Comments: no pedal edema. - Routine Neurological Exam Present: alert, oriented X3 - Urinary Catheter Management Indwelling Urethral Catheter Cath placed during this visit: yes Reason for continuing: Hourly intake/output Insertion date: 05/20/18 Insertion time: 06:00 Results - Labs CBC & Chem 7: 05/28/18 02:50 05/28/18 02:50 Laboratory Results - last 24 hr 05/27/18 05/27/18 05/27/18 09:47 18:14 20:00 WBC RBC Hgb Hct MCV MCH MCHC RDW Plt Count MPV Neut % (Auto) Lymph % (Auto) [place] % (Auto) Eos % (Auto) Baso % (Auto) Neut # (Auto) Lymph # (Auto) [place] # (Auto) Eos # (Auto) Baso # (Auto) WBC Differential Differential Comment Sodium Potassium Chloride Carbon Dioxide Anion Gap BUN Creatinine Estimated GFR POC Glucose 180 H 187 H 262 H Random Glucose Calcium 05/28/18 05/28/18 05/28/18 00:32 02:50 02:50 WBC 7.0 RBC 3.89 L Hgb 10.7 L Hct 33.6 L MCV 86.6 MCH 27.6 MCHC 31.9 L RDW 17.7 H Plt Count 218 MPV 8.2 Neut % (Auto) 87.5 H Lymph % (Auto) 7.4 L [place] % (Auto) 5.0 Eos % (Auto) 0.0 Baso % (Auto) 0.1 Neut # (Auto) 6.1 Lymph # (Auto) 0.5 L [place] # (Auto) 0.3 Eos # (Auto) 0.0 Baso # (Auto) 0.0 WBC Differential . Differential Comment Auto diff final Sodium 140 Potassium 3.4 L Chloride 100 Carbon Dioxide 31.3 Anion Gap 9 BUN 20 H Creatinine 1.06 H Estimated GFR 51 L POC Glucose 355 H Random Glucose 259 H Calcium 8.3 L 05/28/18 05:29 WBC RBC Hgb Hct MCV MCH MCHC RDW Plt Count MPV Neut % (Auto) Lymph % (Auto) [place] % (Auto) Eos % (Auto) Baso % (Auto) Neut # (Auto) Lymph # (Auto) [place] # (Auto) Eos # (Auto) Baso # (Auto) WBC Differential Differential Comment Sodium Potassium Chloride Carbon Dioxide Anion Gap BUN Creatinine Estimated GFR POC Glucose 230 H Random Glucose Calcium - Imaging Impressions Abdomen/Pelvis CTA 05/27/18 00:00 CONCLUSION: 1. There is severe atherosclerotic disease of the aorta. Atherosclerotic disease is present within the superior mesenteric artery but no high-grade stenosis or occlusion is visualized on the arterial side of the mesenteric vasculature. Please note that the venous mesenteric structures are not well evaluated on this examination timed for arterial enhancement. Additionally, there are no secondary findings to suggest mesenteric ischemia including no intramural air. 2. Wall thickening of the rectum suggesting a proctitis. 3. New small bilateral pleural effusions and new small volume of free fluid in the abdomen and pelvis. Also, anasarca is new. - Procedures central line placement. Assessment and Plan - Plan Acute syncope Likely vagal. CT brain 05/20 and 05/21 revealed no acute intracranial findings. -neuro checks. Hypertensive urgency Questionable atrial septal defect on echocardiogram 04/[address] Hooks on 04/18 admission. Started on rivaroxaban. 2D echocardiogram revealed EF 65-30%. LVH. Essentially normal pulmonary arterial pressures. -on Coreg, HCTZ, captopril and hydralazine which was just increased to 100 mg tid. continue amlodipine. -On atorvastatin 40 mg daily for dyslipidemia. -resume aspirin and Xarelto when ok with GI. Acute respiratory failure COPD History of pulmonary embolism on chronic rivaroxaban -still with persistent wheezing which is somewhat worse than yesterday. -Incentive spirometer while awake. -Nasal cannula to maintain saturations greater than equal to 90%. -Albuterol/ipratropium aerosols every 4 hours with albuterol aerosols every 2 as needed for dyspnea. -Continue budesonide/formoterol 160/4.52 puffs twice daily. -repeat chest x-ray 05/26 with improved infiltrate and interstitia edema- -Extubated 05/21. -IV vancomycin and Zosyn stared 05/23 for HCAP. -continue IV Solumedrol, weaned to BID. -will consult pulmonary Fecal impaction s/p disimpaction in the ED. CT abdomen/pelvis revealed fecal disimpaction. Possible proctitis. GI bleed- hemoglobin stable Elevated lipase of unclear significance -Pantoprazole 40 mg IV twice daily. -GI consulted- s/p colonoscopy with diverticulosis/ischemic colitis/ external and internal hemorrhoids/ s/p EGD with gastritis -continue Antibiotics and PPI/ biopsy pending. Acute kidney injury/ Hypokalemia Baseline creatinine around 1.1. Improving. -Monitor urine output -Accurate I's and O's -CT abdomen/pelvis revealed no hydronephrosis. -Negative urine eosinophils. -Avoid nephrotoxic medication. Leukocytosis Acute blood loss anemia Chronic rivaroxaban use Received 4500 K [facility] 05/20 Transfused 2 units PRBCs H/H stable. Prophylaxis -GI -pantoprazole -DVT-SCD/will resume Xarelto when ok with GI. hold the transfer today; will monitor in ICU for now- awaiting pulmonary evaluation. d/w the RN.
[2018-05-28] MEDS: Carvedilol 12.5 MG Tablet PO SCH ×2 (08:40→22:50)
[2018-05-28] MEDS: amLODIPine 5 MG Tablet PO SCH (08:41)
[2018-05-28] MEDS: hydroCHLOROthiazide 25 MG Tablet PO SCH (08:41)
[2018-05-28] MEDS: MethylPREDNISolone Sod Succinate Inj 40 MG/ML Vial IV.PUSH SCH ×2 (08:41→23:44)
[2018-05-28] MEDS: Gabapentin 100 MG Capsule PO SCH ×3 (08:41→19:40)
[2018-05-28] MEDS: Pantoprazole Inj 40 MG Vial IV.PUSH SCH (08:41)
[2018-05-28] MEDS: traZODone 50 MG Tablet PO SCH (08:41)
[2018-05-28] MEDS: Insulin Detemir Inj 1,000 UNIT/10 ML Vial SQ SCH (08:44)
[2018-05-28] MEDS: Mupirocin 2% Nasal Oint Topical Syringe EACH NARE SCH ×2 (08:47→23:45)
[2018-05-28] MEDS: Senna/Docusate Sodium 8.6/50 MG Tablet PO SCH ×2 (08:47→23:45)
[2018-05-28] MEDS: Budesonide-Formoterol 160/4.5 MCG 6 GM Inhaler INH SCH ×2 (08:49→23:45)
[2018-05-28] MEDS: Polyvinyl Alcohol/Povidone PF Opth Drops 0.4 ML Dropperette EACH EYE SCH ×2 (08:49→23:45)
[2018-05-28] MEDS: Lactic Acid (Ammonium Lactate) 12% Lotion 225 GM Bottle TOPICAL SCH (08:49)
[2018-05-28] MEDS: Chlorhexidine 0.12% Oral Kit 15 ML UDC OROPHARYNG SCH ×2 (09:21→22:49)
--- NOTE | 2018-05-28 09:24 | P.PNGI ---
Subjective Interval history: Patient resting in bed, still had a few loose stools yesterday. No further hematochezia or melena. Denies any nausea discussed with RN at bedside. H/H stable. Patient reports some minor soreness to her abdomen with palpation. <Maryse Augustin - Last Filed: 05/28/18 09:13> Physical Exam Vital signs: Vital Signs 05/27/18 09:30 05/27/18 10:00 05/27/18 10:31 Temperature Pulse Rate 66 63 62 Respiratory Rate 20 16 15 Blood Pressure 160/70 H 180/77 H 133/63 Pulse Oximetry 99 99 100 05/27/18 11:00 05/27/18 11:30 05/27/18 12:00 Temperature Pulse Rate 62 62 60 Respiratory Rate 10 L 17 17 Blood Pressure 138/65 148/65 H Pulse Oximetry 96 99 95 05/27/18 12:01 05/27/18 12:30 05/27/18 13:00 Temperature Pulse Rate 62 64 63 Respiratory Rate 23 16 21 Blood Pressure 130/59 L 144/64 H Pulse Oximetry 100 97 94 L 05/27/18 13:01 05/27/18 13:30 05/27/18 14:04 Temperature Pulse Rate 64 62 72 Respiratory Rate 33 H 24 24 Blood Pressure 143/61 H 143/64 H Pulse Oximetry 96 97 05/27/18 15:15 05/27/18 15:30 05/27/18 15:58 Temperature 97.7 F 97.7 F Pulse Rate 64 65 71 Respiratory Rate 14 14 Blood Pressure 131/58 L 134/60 Pulse Oximetry 98 97 100 05/27/18 15:59 05/27/18 16:00 05/27/18 16:30 Temperature Pulse Rate 71 68 69 Respiratory Rate 24 13 14 Blood Pressure 139/75 143/65 H 145/66 H Pulse Oximetry 96 97 95 05/27/18 17:00 05/27/18 17:01 05/27/18 17:31 Temperature Pulse Rate 66 65 68 Respiratory Rate 16 15 16 Blood Pressure 145/61 H 139/63 Pulse Oximetry 95 96 99 05/27/18 18:00 05/27/18 18:41 05/27/18 19:00 Temperature Pulse Rate 65 69 73 Respiratory Rate 16 18 24 Blood Pressure 129/60 142/65 H 136/65 Pulse Oximetry 97 94 L 93 L 09/26/18 19:39 05/27/18 20:00 05/27/18 21:00 Temperature 98.7 F Pulse Rate 68 68 Respiratory Rate 18 19 Blood Pressure 123/57 L 118/58 L Pulse Oximetry 94 L 94 L 94 L 05/27/18 22:00 05/27/18 23:00 05/28/18 00:00 Temperature 98.1 F Pulse Rate 60 62 61 Respiratory Rate 14 15 15 Blood Pressure 123/58 L 154/65 H 138/63 Pulse Oximetry 93 L 94 L 94 L 05/28/18 01:00 05/28/18 01:15 05/28/18 02:00 Temperature Pulse Rate 77 65 66 Respiratory Rate 21 17 22 Blood Pressure 172/74 H 156/70 H Pulse Oximetry 95 96 94 L 05/28/18 03:00 05/28/18 04:00 05/28/18 05:00 Temperature 98.3 F Pulse Rate 58 L 58 L 64 Respiratory Rate 15 14 17 Blood Pressure 147/65 H 149/67 H 159/68 H Pulse Oximetry 93 L 95 96 05/28/18 06:00 05/28/18 07:31 Temperature Pulse Rate 57 L 62 Respiratory Rate 15 17 Blood Pressure 162/70 H Pulse Oximetry 95 96 Intake & Output 05/27/18 05/28/18 05/28/18 18:59 06:59 18:59 Intake Total 917.5 / 917.5 920 / 920 Balance 917.5 / 917.5 920 / 920 Weight 94.1 kg Intake: IV 717.5 / 717.5 200 / 200 Zosyn 4.5 GM Premix 4.5 gm In 200 / 200 200 / 200 100 ml @ 200 mls/hr IV.SIG Q6H ANNE Rx#:[id number] Vancomycin Inj 1,750 MG In NS 517.5 / 517.5 Inj 500 ML @ 250 mls/hr IV.SIG Q24H ANNE Rx#:[id number] Oral 720 / 720 Anesthesia Amount 200 / 200 Other: # Voids 5 5 Date of Last Bowel Movement 05/27/18 05/28/18 # Bowel Movements 3 2 - Constitutional no acute distress - Routine HEENT Exam Head: Present: normocephalic, atraumatic - Routine Respiratory Exam Present: wheezes. Absent: accessory muscle use - Routine Abdominal Exam Present: soft, normoactive bowel sounds, tenderness (mild diffuse tenderness ). Absent: distended - Routine Skin Exam Present: dry, warm - Routine Neurological Exam Present: alert, oriented X3 - Urinary Catheter Management Indwelling Urethral Catheter Cath placed during this visit: yes Reason for continuing: Hourly intake/output Insertion date: 05/20/18 Insertion time: 06:00 <Maryse Augustin - Last Filed: 05/28/18 09:13> Vital signs: Vital Signs 05/27/18 11:30 05/27/18 12:00 05/27/18 12:01 Temperature Pulse Rate 62 60 62 Respiratory Rate 17 17 23 Blood Pressure 148/65 H 130/59 L Pulse Oximetry 99 95 100 05/27/18 12:30 05/27/18 13:00 05/27/18 13:01 Temperature Pulse Rate 64 63 64 Respiratory Rate 16 21 33 H Blood Pressure 144/64 H 143/61 H Pulse Oximetry 97 94 L 96 05/27/18 13:30 05/27/18 14:04 05/27/18 15:15 Temperature 97.7 F Pulse Rate 62 72 64 Respiratory Rate 24 24 14 Blood Pressure 143/64 H 131/58 L Pulse Oximetry 97 98 05/27/18 15:30 05/27/18 15:58 05/27/18 15:59 Temperature 97.7 F Pulse Rate 65 71 71 Respiratory Rate 14 24 Blood Pressure 134/60 139/75 Pulse Oximetry 97 100 96 05/27/18 16:00 05/27/18 16:30 05/27/18 17:00 Temperature Pulse Rate 68 69 66 Respiratory Rate 13 14 16 Blood Pressure 143/65 H 145/66 H Pulse Oximetry 97 95 95 05/27/18 17:01 05/27/18 17:31 05/27/18 18:00 Temperature Pulse Rate 65 68 65 Respiratory Rate 15 16 16 Blood Pressure 145/61 H 139/63 129/60 Pulse Oximetry 96 99 97 05/27/18 18:41 05/27/18 19:00 05/27/18 19:39 Temperature Pulse Rate 69 73 Respiratory Rate 18 24 Blood Pressure 142/65 H 136/65 Pulse Oximetry 94 L 93 L 94 L 05/27/18 20:00 05/27/18 21:00 05/27/18 21:31 Temperature 98.7 F Pulse Rate 68 68 60 Respiratory Rate 18 19 16 Blood Pressure 123/57 L 118/58 L 108/53 L Pulse Oximetry 94 L 94 L 93 L 05/27/18 22:00 05/27/18 22:30 05/27/18 23:00 Temperature Pulse Rate 60 58 L 62 Respiratory Rate 14 15 15 Blood Pressure 123/58 L 136/60 154/65 H Pulse Oximetry 92 L 93 L 94 L 05/27/18 23:30 05/28/18 00:00 05/28/18 00:01 Temperature 98.1 F Pulse Rate 64 61 63 Respiratory Rate 18 15 16 Blood Pressure 158/72 H 138/63 138/63 Pulse Oximetry 94 L 94 L 95 05/28/18 00:31 05/28/18 01:00 05/28/18 01:15 Temperature Pulse Rate 66 77 65 Respiratory Rate 20 32 H 17 Blood Pressure 151/65 H 172/74 H Pulse Oximetry 94 L 91 L 96 05/28/18 01:30 05/28/18 01:33 05/28/18 02:00 Temperature Pulse Rate 63 63 66 Respiratory Rate 12 14 30 H Blood Pressure 189/78 H 172/74 H 156/70 H Pulse Oximetry 98 99 94 L 05/28/18 02:01 05/28/18 03:00 05/28/18 03:01 Temperature Pulse Rate 64 58 L 58 L Respiratory Rate 15 15 15 Blood Pressure 156/70 H 147/65 H 147/65 H Pulse Oximetry 94 L 93 L 93 L 05/28/18 04:00 05/28/18 05:00 05/28/18 05:01 Temperature 98.3 F Pulse Rate 58 L 64 60 Respiratory Rate 14 17 16 Blood Pressure 149/67 H 159/68 H 165/70 H Pulse Oximetry 95 96 96 05/28/18 06:00 05/28/18 06:23 05/28/18 07:00 Temperature Pulse Rate 57 L 66 62 Respiratory Rate 15 23 20 Blood Pressure 190/77 H 162/70 H Pulse Oximetry 95 95 96 05/28/18 07:01 05/28/18 07:31 05/28/18 08:00 Temperature 98.0 F Pulse Rate 65 62 66 Respiratory Rate 22 17 27 H Blood Pressure 180/81 H Pulse Oximetry 96 96 95 05/28/18 08:01 05/28/18 09:00 05/28/18 09:01 Temperature Pulse Rate 62 63 62 Respiratory Rate 24 20 18 Blood Pressure 184/81 H 182/77 H Pulse Oximetry 95 96 96 05/28/18 10:00 05/28/18 10:01 05/28/18 11:00 Temperature Pulse Rate 66 66 63 Respiratory Rate 14 18 16 Blood Pressure 130/59 L Pulse Oximetry 96 97 95 05/28/18 11:01 05/28/18 11:15 Temperature Pulse Rate 68 Respiratory Rate 17 Blood Pressure 149/67 H Pulse Oximetry Intake & Output 05/27/18 05/28/18 05/28/18 18:59 06:59 18:59 Intake Total 917.5 / 917.5 920 / 920 Balance 917.5 / 917.5 920 / 920 Weight 94.1 kg Intake: IV 717.5 / 717.5 200 / 200 Zosyn 4.5 GM Premix 4.5 gm In 200 / 200 200 / 200 100 ml @ 200 mls/hr IV.SIG Q6H ANNE Rx#:[id number] Vancomycin Inj 1,750 MG In NS 517.5 / 517.5 Inj 500 ML @ 250 mls/hr IV.SIG Q24H ANNE Rx#:[id number] Oral 720 / 720 Anesthesia Amount 200 / 200 Other: # Voids 5 5 Date of Last Bowel Movement 05/27/18 05/28/18 05/28/18 # Bowel Movements 3 2 - Urinary Catheter Management Indwelling Urethral Catheter Cath placed during this visit: no <Cathie Porter - Last Filed: 05/28/18 11:29> Results - Labs CBC & Chem 7: 05/28/18 02:50 05/28/18 02:50 Laboratory Results - last 24 hr 05/27/18 05/27/18 05/27/18 09:47 18:14 20:00 WBC RBC Hgb Hct MCV MCH MCHC RDW Plt Count MPV Neut % (Auto) Lymph % (Auto) [place] % (Auto) Eos % (Auto) Baso % (Auto) Neut # (Auto) Lymph # (Auto) [place] # (Auto) Eos # (Auto) Baso # (Auto) WBC Differential Differential Comment Sodium Potassium Chloride Carbon Dioxide Anion Gap BUN Creatinine Estimated GFR POC Glucose 180 H 187 H 262 H Random Glucose Calcium 05/28/18 05/28/18 05/28/18 00:32 02:50 02:50 WBC 7.0 RBC 3.89 L Hgb 10.7 L Hct 33.6 L MCV 86.6 MCH 27.6 MCHC 31.9 L RDW 17.7 H Plt Count 218 MPV 8.2 Neut % (Auto) 87.5 H Lymph % (Auto) 7.4 L [place] % (Auto) 5.0 Eos % (Auto) 0.0 Baso % (Auto) 0.1 Neut # (Auto) 6.1 Lymph # (Auto) 0.5 L [place] # (Auto) 0.3 Eos # (Auto) 0.0 Baso # (Auto) 0.0 WBC Differential . Differential Comment Auto diff final Sodium 140 Potassium 3.4 L Chloride 100 Carbon Dioxide 31.3 Anion Gap 9 BUN 20 H Creatinine 1.06 H Estimated GFR 51 L POC Glucose 355 H Random Glucose 259 H Calcium 8.3 L 05/28/18 05/28/18 05:29 08:06 WBC RBC Hgb Hct MCV MCH MCHC RDW Plt Count MPV Neut % (Auto) Lymph % (Auto) [place] % (Auto) Eos % (Auto) Baso % (Auto) Neut # (Auto) Lymph # (Auto) [place] # (Auto) Eos # (Auto) Baso # (Auto) WBC Differential Differential Comment Sodium Potassium Chloride Carbon Dioxide Anion Gap BUN Creatinine Estimated GFR POC Glucose 230 H 175 H Random Glucose Calcium - Imaging Impressions Abdomen/Pelvis CTA 05/27/18 00:00 CONCLUSION: 1. There is severe atherosclerotic disease of the aorta. Atherosclerotic disease is present within the superior mesenteric artery but no high-grade stenosis or occlusion is visualized on the arterial side of the mesenteric vasculature. Please note that the venous mesenteric structures are not well evaluated on this examination timed for arterial enhancement. Additionally, there are no secondary findings to suggest mesenteric ischemia including no intramural air. 2. Wall thickening of the rectum suggesting a proctitis. 3. New small bilateral pleural effusions and new small volume of free fluid in the abdomen and pelvis. Also, anasarca is new. - Procedures central line placement. <Maryse Augustin - Last Filed: 05/28/18 09:13> - Labs CBC & Chem 7: 05/28/18 02:50 05/28/18 02:50 Laboratory Results - last 24 hr 05/27/18 05/27/18 05/28/18 18:14 20:00 00:32 WBC RBC Hgb Hct MCV MCH MCHC RDW Plt Count MPV Neut % (Auto) Lymph % (Auto) [place] % (Auto) Eos % (Auto) Baso % (Auto) Neut # (Auto) Lymph # (Auto) [place] # (Auto) Eos # (Auto) Baso # (Auto) WBC Differential Differential Comment Sodium Potassium Chloride Carbon Dioxide Anion Gap BUN Creatinine Estimated GFR POC Glucose 187 H 262 H 355 H Random Glucose Calcium 05/28/18 05/28/18 05/28/18 02:50 02:50 05:29 WBC 7.0 RBC 3.89 L Hgb 10.7 L Hct 33.6 L MCV 86.6 MCH 27.6 MCHC 31.9 L RDW 17.7 H Plt Count 218 MPV 8.2 Neut % (Auto) 87.5 H Lymph % (Auto) 7.4 L [place] % (Auto) 5.0 Eos % (Auto) 0.0 Baso % (Auto) 0.1 Neut # (Auto) 6.1 Lymph # (Auto) 0.5 L [place] # (Auto) 0.3 Eos # (Auto) 0.0 Baso # (Auto) 0.0 WBC Differential . Differential Comment Auto diff final Sodium 140 Potassium 3.4 L Chloride 100 Carbon Dioxide 31.3 Anion Gap 9 BUN 20 H Creatinine 1.06 H Estimated GFR 51 L POC Glucose 230 H Random Glucose 259 H Calcium 8.3 L 05/28/18 08:06 WBC RBC Hgb Hct MCV MCH MCHC RDW Plt Count MPV Neut % (Auto) Lymph % (Auto) [place] % (Auto) Eos % (Auto) Baso % (Auto) Neut # (Auto) Lymph # (Auto) [place] # (Auto) Eos # (Auto) Baso # (Auto) WBC Differential Differential Comment Sodium Potassium Chloride Carbon Dioxide Anion Gap BUN Creatinine Estimated GFR POC Glucose 175 H Random Glucose Calcium - Imaging Impressions Abdomen/Pelvis CTA 05/27/18 00:00 CONCLUSION: 1. There is severe atherosclerotic disease of the aorta. Atherosclerotic disease is present within the superior mesenteric artery but no high-grade stenosis or occlusion is visualized on the arterial side of the mesenteric vasculature. Please note that the venous mesenteric structures are not well evaluated on this examination timed for arterial enhancement. Additionally, there are no secondary findings to suggest mesenteric ischemia including no intramural air. 2. Wall thickening of the rectum suggesting a proctitis. 3. New small bilateral pleural effusions and new small volume of free fluid in the abdomen and pelvis. Also, anasarca is new. <Cathie Porter - Last Filed: 05/28/18 11:29> Assessment and Plan - Plan Assessment: - Rectal bleeding reported on admission- pt was sent from [place] and according to chart EVAC noted her to have dark red stools and to be very hypotensive with systolic BP in the 60s on arrival. Pt initially declined GI procedures, however changed her mind and underwent EGD and colonoscopy yesterday. 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 Erythematous gastritis in the gastric antrum and gastric body, biopsy. Normal duodenal mucosa in the bulb and second portion of the duodenum. Colonoscopy --> Severe diverticulosis throughout entire examined colon. Large sized circumferential colitis in the sigmoid colon consistent with ischemic colitis. Internal and external hemorrhoids Abdomen/Pelvis CTA --> There is severe atherosclerotic disease of the aorta. Atherosclerotic disease is present within the superior mesenteric artery but no high-grade stenosis or occlusion is visualized on the arterial side of the mesenteric vasculature. Please note that the venous mesenteric structures are not well evaluated on this examination timed for arterial enhancement. Additionally, there are no secondary findings to suggest mesenteric ischemia including no intramural air. Wall thickening of the rectum suggesting a proctitis. New small bilateral pleural effusions and new small volume of free fluid in the abdomen and pelvis. Also, anasarca is new. Pt severely hypotensive on 05/20, day of admission, could be cause of ischemic colitis, BP is now controlled Plan: Protonix EGD/colon biopsy pending Monitor H/H- at this time stable OK to restart Xarelto from a GI perspective Avoid hypotension Diet as tolerated Our service will sign off, please reconsult as needed Have pt follow up with GI after DC Pt has been seen and examined by myself and Dr. Porter and this note is written on his behalf <Maryse Augustin - Last Filed: 05/28/18 09:13> - Plan Seen and examined with [employer], CTA with atherosclerosis but no major occlusions. Clinically doing better. Colon biopsies-p. Diet as tolerated. Recommend fu colonoscopy in 1 to 2 months to document healing of colon mucosa. If further problems recommend Vascular surgery consult. GI fu upon dc. Thank you The exam, history, and the medical decision-making described in the above note were completed with the assistance of the mid-level provider. I reviewed and agree with the findings presented. I attest that I had a [id number] encounter with the patient on the same day, and personally performed and documented my assessment and findings in the medical record. <Cathie Porter - Last Filed: 05/28/18 11:29>
[2018-05-28] MEDS ORDERED: Pharmacy Ordered Lab Info OTHER ONE (09:45)
[2018-05-28] MEDS: Vancomycin Inj 1,750 MG in Sodium Chlor 0.9% Inj 500 ML IV.SIG SCH (10:59)
[2018-05-28] MEDS ORDERED: Rivaroxaban 20 MG Tablet PO SCH (12:00)
[2018-05-28 19:39] LABS: Hematocrit 23.2 % (35.0-46.0); Hemoglobin 7.4 gm/dL (11.6-15.3)
[2018-05-28] MEDS: Sod Chloride 0.9% Inj 1,000 ML IV.SIG SCH (20:00)
--- NOTE | 2018-05-28 20:01 | MB ---
cc: Gertrude Joshi MD DATE: 05/28/2018 REASON FOR CONSULTATION: COPD and hypoxia. HISTORY OF PRESENT ILLNESS: This is a 68-year-old white female with a longstanding history of COPD, prior history of pulmonary emboli, history of anemia and a recent GI bleed, who was seen in the emergency room with hypotension and dark bloody stools. The patient was started on IV fluids and her blood pressure did improve. She was poorly responsive following admission, requiring emergency intubation. The hemoglobin was 10.1. The patient had a GI workup and apparently was found to be not actively bleeding from the GI tract and was weaned off the ventilator within 24 hours. Following that, the patient needed oxygen via mask and now has been weaned down to oxygen via nasal cannula at 2 liters. She had chest x-rays done which showed evidence of COPD and no active infiltrates. The patient does have some abdominal discomfort. She has had leg swelling and she has complaints of lower abdominal pain but no nausea or vomiting. She has been placed on vancomycin and Zosyn for a possibility of sepsis and pneumonia. PAST MEDICAL HISTORY: Includes a history of COPD with emphysema, history of depression and anxiety. history of hypertension, prior history of pulmonary embolism and DVT, history of urethral strictures. PAST SURGICAL HISTORY: Includes cholecystectomy and a previous . HABITS: The patient smoked 1-2 packs per day for 35 years and cut down. Alcohol use, none. FAMILY HISTORY: Noncontributory. ALLERGIES: NO DRUG ALLERGIES ARE LISTED. REVIEW OF SYSTEMS: The patient has had some weight loss. She complains of dizziness, blackout spells. She has epigastric distress and nausea. She has wheezing and shortness of breath. She has leg swelling and joint pains of her extremities. She does have some depression. The other system review is negative. MEDICATION LIST: Reviewed from the chart. She is also on nebulized albuterol and Atrovent solution q.6 and Symbicort 160/4.5 mcg 2 puffs b.i.d. PHYSICAL EXAMINATION: GENERAL: This is an averagely built elderly white female who is pale and mildly dyspneic at rest. VITAL SIGNS: Blood pressure 130/70, pulse 90, respirations 22, temperature 97.2. HEENT: Head is normocephalic. Pupils are reactive. Sclerae are clear. Throat is dry. Nasal mucosa is edematous. NECK: Supple. No bruits, thyroid enlargement or lymphadenopathy. CHEST: Decreased excursions with occasional wheezes bilaterally. Breath sounds are distant. HEART: Sounds are regular. S1 and S2. No murmur. No S3. ABDOMEN: Soft, protuberant without masses. No organomegaly or tenderness. Bowel sounds are active. EXTREMITIES: Edema 1+ with decreased pulses. NEUROLOGIC: Reflexes are 1+ with no gross motor deficits. Cranial nerves are grossly intact. RECTAL: Deferred. SKIN: No lesions noted. IMPRESSION: 1. Chronic obstructive pulmonary disease with emphysema in acute exacerbation. 2. Respiratory failure, resolved. 3. History of pulmonary embolism. 4. Anemia with gastrointestinal bleed. 5. Nicotine dependency. 6. History of hypertension. PLAN: The patient has been placed on 2 liters of oxygen and wean to keep sats greater than 92. Nebulized DuoNeb solution added q.i.d. and p.r.n. We will also continue Symbicort 160/4.5 mcg 2 puffs twice a day. Chest x-ray to be done tomorrow. Pulmonary functions done at the bedside. Antibiotic therapy continued for now. Followup CBC and BMP are pending. Incentive spirometry was started every 2 hours. Thank you, Dr. Juarez, for this consultation. Gertrude Joshi MD VJD/cullen , 06:10 PM , 06:23 PM
[2018-05-28] MEDS ORDERED: Lidocaine 1% Inj 50 ML Vial ONE (20:03)
--- NOTE | 2018-05-28 20:29 | P.CON ---
History of Present Illness Consult date: 05/28/18 Requesting Physician: Cathie Porter Reason for Consult: Ischemic colitis Primary Care Provider: Dakota Azevedo MD Chief Complaint: Acute change in status History of Present Illness: Patient is a 68-year-old female admitted for GI hemorrhage on 05/20/2018. The patient has been relatively stable after receiving 3 units packed red cells since her admission. She was restarted on Xarelto today due to previous history of DVT. Patient became hypotensive and had significant change in her hemodynamic status approximately 1-1/2 hours ago. I have been asked to see the patient based on this with her history of ischemic colitis seen by colonoscopy yesterday. There was a circumferential segment of ulcerated mucosa in the sigmoid colon. Biopsies were taken. Review of Systems Gastrointestinal: Reports abdominal pain, Reports black, tarry stools PMFSH - History History Provided By: Medical Record - Medical History Medical History: Medical History (Last Reviewed 06/08/18 @ 16:07 by Maria Isabel Carnes MD) Anterior urethral stricture Anxiety COPD (chronic obstructive pulmonary disease) Depression Edema Hypertension Pulmonary embolism - Surgical History Surgical History: Surgical History (Last Reviewed 06/08/18 @ 16:07 by Maria Isabel Carnes MD) Hx of cholecystectomy Previous section - Family History Family History: Family History (Last Updated 06/08/18 @ 16:07 by Maria Isabel Carnes MD) Other No pertinent family history - Tobacco History Second Hand Smoke Exposure: No Tobacco Use In Past 30 Days: No Smoking Status: Unknown if ever smoked Tobacco Type: Cigarettes - Alcohol History How Often Do You Have a Drink Containing Alcohol: Never - Substance Use History Substance History: No History of Abuse - Travel History Recent Travel in the [place] Within the Last 8 Weeks: No Recent Travel Out of the Country Within the Last 8 Weeks: No - Immunization History Tetanus Immunization: Unsure Hx Influenza Vaccine This Season: Yes Medications and Allergies Active Medications: Active Medications Acetaminophen (Tylenol) 650 mg PO Q4H PRN PRN Reason: pain 1-10/ fever Last Admin: 05/25/18 22:07 Dose: 650 mg Al Hydroxide/Mg Hydroxide (Milk Of Magnvinay Liq) 30 ml PO Q12H PRN PRN Reason: Mild Constipation Albuterol (Albuterol Neb (Prn)) 2.5 mg NEB Q2HR NEB PRN PRN Reason: DYSPNEA Last Admin: 05/28/18 07:28 Dose: 2.5 mg Albuterol (Duoneb Neb (Sonny)) 1 ampul NEB Q6HR NEB [facility] Alprazolam (Xanax) 0.25 mg PO Q8H PRN PRN Reason: ANXIETY Last Admin: 05/27/18 20:36 Dose: 0.25 mg Amlodipine Besylate (Norvasc) 10 mg PO DAILY [facility] Last Admin: 05/28/18 08:41 Dose: 10 mg Artificial Tears (Refresh Classic 1.4/0.6% Pf Opth Drops) 1 drop EACH EYE BID [facility] Last Admin: 05/28/18 08:49 Dose: 1 drop Aspirin (Ecotrin) 81 mg PO DAILY [facility] Atorvastatin Calcium (Lipitor) 40 mg PO DAILY [facility] Last Admin: 05/28/18 08:40 Dose: 40 mg Bisacodyl (Dulcolax Supp) 10 mg RECTAL DAILY PRN PRN Reason: SEVERE CONSITIPATION Budesonide/Formoterol Fumarate (Symbicort 160/4.5 Mcg Inh) 2 puff INH BID [facility] Last Admin: 05/28/18 08:49 Dose: 2 puff Captopril (Capoten) 25 mg PO BID [facility] Last Admin: 05/28/18 08:41 Dose: 25 mg Carvedilol (Coreg) 12.5 mg PO BID [facility] Last Admin: 05/28/18 08:40 Dose: 12.5 mg Chlorhexidine Gluconate (Peridex 0.12% Oral Kit) 15 ml OROPHARYNG BID@0800, 2000 [facility] Last Admin: 05/28/18 09:21 Dose: Not Given Dextrose (D50w Vial) 50 ml IV.PUSH UNSCH PRN PRN Reason: PER HYPOGLYCEMIA PROTOCOL Enalaprilat (Vasotec Inj) 2.5 mg IV.PUSH Q6H PRN PRN Reason: SBP>160, DBP>90 Last Admin: 05/28/18 01:36 Dose: 2.5 mg Gabapentin (Neurontin) 100 mg PO TID [facility] Last Admin: 05/28/18 19:40 Dose: Not Given Glucagon (Glucagon Inj) 1 mg OTHER PRN PRN PRN Reason: for Hypoglycemia Protocol Hydralazine HCl (Apresoline) 100 mg PO TID [facility] Last Admin: 05/28/18 19:39 Dose: Not Given Hydrochlorothiazide (Hydrodiuril) 25 mg PO DAILY [facility] Last Admin: 05/28/18 08:41 Dose: 25 mg Piperacillin/Tazobactam/Dextrose (Zosyn 4.5 Gm Premix) 4.5 gm in 100 mls @ 200 mls/hr IV.SIG Q6H [facility] Last Admin: 05/28/18 14:19 Dose: 100 mls/hr Vancomycin HCl 1,750 mg/ (Sodium Chloride) 517.5 mls @ 250 mls/hr IV.SIG Q24H [facility] Last Admin: 05/28/18 10:59 Dose: 250 mls/hr Sodium Chloride (Ns Inj) 1,000 mls @ 100 mls/hr IV.SIG .Q10H [facility] Norepinephrine Bitartrate (Levophed-Dextrose 4 Mg/250 Ml Drip) 4 mg in 250 mls @ 7.5 mls/hr IV.SIG TITRATE PRN; Protocol PRN Reason: Per Protocol Insulin Aspart (Novolog Insulin Correctional Sugar Inj) 0 unit SQ Q6HR [facility]; Protocol Last Admin: 05/28/18 19:40 Dose: Not Given Insulin Detemir (Levemir Inj) 10 unit SQ BID [facility] Last Admin: 05/28/18 08:44 Dose: 10 unit Labetalol HCl (Trandate Inj) 10 mg IV.PUSH Q1H PRN PRN Reason: Sbp>160, Dbp>90, Hr>65 Last Admin: 05/26/18 22:34 Dose: 10 mg Lactic Acid (Lac-Hydrin 12% Lotion) 1 applicatio TOPICAL DAILY [facility] Last Admin: 05/28/18 08:49 Dose: 1 applicatio Melatonin (Melatonin) 5 mg PO [facility] Last Admin: 05/27/18 20:14 Dose: 5 mg Methylprednisolone Sodium Succinate (Solumedrol Inj) 40 mg IV.PUSH BID [facility] Last Admin: 05/28/18 08:41 Dose: 40 mg Miscellaneous Information ([facility] [place]dered [place] Info) 0 each OTHER ONCE ONE Stop: 05/29/18 09:46 Mupirocin (Bactroban 2% Nasal Oint) 1 applicatio EACH NARE BID [facility] Last Admin: 05/28/18 08:47 Dose: 1 applicatio Ondansetron HCl (Zofran Inj) 4 mg IV.PUSH Q6H PRN PRN Reason: NAUSEA Last Admin: 05/27/18 06:53 Dose: 4 mg Pantoprazole Sodium (Protonix Inj) 40 mg IV.PUSH Q12HR [facility] Last Admin: 05/28/18 08:41 Dose: 40 mg Pharmacy Profile Note (Vancomycin Consult Pharmacy) 1 each OTHER UNSCH PRN PRN Reason: Pharmacy to dose Rivaroxaban (Xarelto) 20 mg PO DAILY [facility] Last Admin: 05/28/18 13:21 Dose: 20 mg Senna/Docusate Sodium (Tanisha-Colace) 1 tab PO BID [facility] Last Admin: 05/28/18 08:47 Dose: 1 tab Sennosides (Senokot) 17.2 mg PO Q12H PRN PRN Reason: Moderate Constipation Sodium Chloride (Ns Flush) 2 ml IV.FLUSH BID [facility] Last Admin: 05/28/18 08:47 Dose: 2 ml Sodium Chloride (Ns Flush) 2 ml IV.FLUSH PRN PRN PRN Reason: FLUSH AFTER USING IV ACCESS Last Admin: 05/24/18 14:27 Dose: 2 ml Terbutaline Sulfate (Brethine Inj) 1 mg SQ UNSCH PRN PRN Reason: For Extravasation Tramadol HCl (Ultram) 50 mg PO Q8H PRN PRN Reason: BREAKTHROUGH PAIN Last Admin: 05/28/18 20:07 Dose: 50 mg Trazodone HCl (Desyrel) 50 mg PO DAILY [facility] Last Admin: 05/28/18 08:41 Dose: 50 mg Allergies Allergy/AdvReac Type Severity Reaction Status Date / Time No Known Allergies Allergy Verified 05/20/18 02:09 Home Medications Medication Instructions Recorded Confirmed Type acetaminophen [Tylenol Extra 500 mg PO Q4H PRN 05/20/18 05/20/18 History Strength] alprazolam [Xanax] 0.5 mg PO BID PRN 05/20/18 05/20/18 History amlodipine [Norvasc] 10 mg PO DAILY 05/20/18 05/20/18 History ammonium lactate 1 applic TOPICAL DAILY 05/20/18 05/20/18 History aspirin [Aspir-Low] 81 mg PO DAILY 05/20/18 05/20/18 History atorvastatin 40 mg PO DAILY 05/20/18 05/20/18 History budesonide-formoterol [Symbicort] 2 puff INHALATION BID 05/20/18 05/20/18 History captopril-hydrochlorothiazide 1 tab PO BID 05/20/18 05/20/18 History carvedilol [Coreg] 12.5 mg PO BID 05/20/18 05/20/18 History ciprofloxacin HCl [Cipro] 500 mg PO BID 05/20/18 05/20/18 History gabapentin 100 mg PO TID 05/20/18 05/20/18 History hydralazine 75 mg PO TID 05/20/18 05/20/18 History ibuprofen 5 mg/kg PO Q6-8H PRN 05/20/18 05/20/18 History ipratropium-albuterol 3 ml INHALATION QID 05/20/18 05/20/18 History melatonin 3 mg PO HS PRN 05/20/18 05/20/18 History omeprazole magnesium [Prilosec OTC] 20 mg PO DAILY 05/20/18 05/20/18 History prednisone 5 mg PO DAILY 05/20/18 05/20/18 History ranitidine HCl 150 mg PO DAILY 05/20/18 05/20/18 History rivaroxaban [Xarelto] 20 mg PO DAILY 05/20/18 05/20/18 History trazodone 50 mg PO DAILY 05/20/18 05/20/18 History Physical Exam Vital signs: Vital Signs 05/27/18 21:00 05/27/18 21:31 05/27/18 22:00 Temperature Pulse Rate 68 60 60 Respiratory Rate 19 16 14 Blood Pressure 118/58 L 108/53 L 123/58 L Pulse Oximetry 94 L 93 L 92 L 05/27/18 22:30 05/27/18 23:00 05/27/18 23:30 Temperature Pulse Rate 58 L 62 64 Respiratory Rate 15 15 18 Blood Pressure 136/60 154/65 H 158/72 H Pulse Oximetry 93 L 94 L 94 L 05/28/18 00:00 05/28/18 00:01 05/28/18 00:31 Temperature 98.1 F Pulse Rate 61 63 66 Respiratory Rate 15 16 20 Blood Pressure 138/63 138/63 151/65 H Pulse Oximetry 94 L 95 94 L 05/28/18 01:00 05/28/18 01:15 05/28/18 01:30 Temperature Pulse Rate 77 65 63 Respiratory Rate 32 H 17 12 Blood Pressure 172/74 H 189/78 H Pulse Oximetry 91 L 96 98 05/28/18 01:33 05/28/18 02:00 05/28/18 02:01 Temperature Pulse Rate 63 66 64 Respiratory Rate 14 30 H 15 Blood Pressure 172/74 H 156/70 H 156/70 H Pulse Oximetry 99 94 L 94 L 05/28/18 03:00 05/28/18 03:01 05/28/18 04:00 Temperature 98.3 F Pulse Rate 58 L 58 L 58 L Respiratory Rate 15 15 14 Blood Pressure 147/65 H 147/65 H 149/67 H Pulse Oximetry 93 L 93 L 95 05/28/18 05:00 05/28/18 05:01 05/28/18 06:00 Temperature Pulse Rate 64 60 57 L Respiratory Rate 17 16 15 Blood Pressure 159/68 H 165/70 H 190/77 H Pulse Oximetry 96 96 95 05/28/18 06:23 05/28/18 07:00 05/28/18 07:01 Temperature Pulse Rate 66 62 65 Respiratory Rate 23 20 22 Blood Pressure 162/70 H 180/81 H Pulse Oximetry 95 96 96 05/28/18 07:31 05/28/18 08:00 05/28/18 08:01 Temperature 98.0 F Pulse Rate 62 66 62 Respiratory Rate 17 27 H 24 Blood Pressure 184/81 H Pulse Oximetry 96 95 95 05/28/18 09:00 05/28/18 09:01 05/28/18 10:00 Temperature Pulse Rate 63 62 66 Respiratory Rate 20 18 14 Blood Pressure 182/77 H Pulse Oximetry 96 96 96 05/28/18 10:01 05/28/18 11:00 05/28/18 11:01 Temperature Pulse Rate 66 63 Respiratory Rate 18 16 Blood Pressure 130/59 L 149/67 H Pulse Oximetry 97 95 05/28/18 11:15 05/28/18 12:00 05/28/18 14:00 Temperature 98.0 F Pulse Rate 68 65 70 Respiratory Rate 17 16 Blood Pressure 137/63 Pulse Oximetry 99 05/28/18 15:15 05/28/18 16:00 05/28/18 18:00 Temperature 97.8 F Pulse Rate 70 69 85 Respiratory Rate 16 20 Blood Pressure 140/65 Pulse Oximetry 90 L Intake & Output 05/28/18 05/28/18 05/29/18 06:59 18:59 06:59 Intake Total 920 / 920 700 / 700 Balance 920 / 920 700 / 700 Weight 94.1 kg Intake: IV 200 / 200 100 / 100 Zosyn 4.5 GM Premix 4.5 gm In 200 / 200 100 / 100 100 ml @ 200 mls/hr IV.SIG Q6H [facility] Rx#:[id number] Oral 720 / 720 600 / 600 Other: # Voids 5 5 Date of Last Bowel Movement 05/28/18 05/28/18 # Bowel Movements 2 # Incontinent Bowel Movements 1 - Constitutional mild distress - Routine HEENT Exam Head: Present: normocephalic, atraumatic Comments: Pale but skin warm and not clammy - Routine Respiratory Exam Present: CTA bilaterally - Routine Abdominal Exam Present: soft, distended Comments: Tender but not with pain out of proportion to the physical findings; No guarding - Routine Rectal Exam Patient deferred: visual exam Digital: Present: blood (Dark bloody stool in the bed) Comments: Dark bloody stool in felisha in the bed - Urinary Catheter Management Indwelling Urethral Catheter Cath placed during this visit: yes Reason for continuing: Hourly intake/output Insertion date: 05/20/18 Insertion time: 06:00 Assessment and Plan - Assessment (1) GI hemorrhage Code(s): K92.2 - Gastrointestinal hemorrhage, unspecified Status: Acute Plan: Patient receiving volume bolus at the time of this dictation. Being started on pressors. Discussed with Dr. Avendano. Blood products being typed and crossed. Latest hemoglobin 1 hour ago was 7.4. Hemoglobin was 10.7 this morning. If she continues to deteriorate, I have discussed with the patient that she may require total or subtotal colectomy to save her life. Ideally, patient needs to be resuscitated and hopefully she will stabilize. Would hold any and all Xarelto or other anticoagulants as it is contraindicated at this time. (2) Abdominal pain, acute Code(s): R10.9 - Unspecified abdominal pain Status: Acute (3) Acute blood loss anemia Code(s): D62 - Acute posthemorrhagic anemia Status: Acute (4) Acute hypotension Code(s): I95.9 - Hypotension, unspecified Status: Acute - Attending Attestation I attest that I had a [id number] encounter with the patient on the same day, and personally performed and documented my assessment and findings in the medical record. The following services were provided during this hospital visit: Chart data review, vital sign assessments/reviewing monitor data Review of consultation notes if present Medication orders/review and/or management Ordering and/or reviewing lab tests Ordering and/or interpreting/reviewing x-rays and/or diagnostic studies Care of the patient and discussion of the patient with the care team Documentation time To help prompt me to consider important information that might be impacting today's encounter and assessment, Information from prior notes written by myself or my colleagues may have been "brought forward/copy and pasted" into today's note.
[2018-05-28] MEDS ORDERED: Prothrombin Complex Conc Inj 2,500 UNIT in Syringe/Bag 1 EACH IV.SIG ONE (22:00)
[2018-05-28 23:41] LABS: Hematocrit 23.5 % (35.0-46.0); Hemoglobin 7.9 gm/dL (11.6-15.3)
[2018-05-28] MEDS ORDERED: PANTOPRAZOLE IV.SIG ONE (23:42)
[2018-05-28] MEDS ORDERED: SODIUM CHLOR 0.9% IV.SIG ONE (23:42)
--- NOTE | 2018-05-28 23:43 | P.PCN ---
Date of procedure: 05/28/18 Pre-op diagnosis: Shock Procedure: DATE: 05/28/18 PROCEDURE: Right radial arterial catheter placement INDICATION: Hemorrhagic shock DETAILS OF PROCEDURE The patient was placed in supine position. The skin was cleansed with Chloraprep x3. Additional barrier precautions included sterile towels, sterile gloves, sterile gown, face mask, and hat. 1% lidocaine 1cc was used for local anesthesia. Ultrasound probe cover was used. Under direct ultrasound guidance and on the first attempt, the artery was accessed with an introducer needle. The patient flinched vigorously and wire would not thread. A new 20 gauge Arrow radial art line kit was obtained. The artery was accessed and the wire was advanced. The 20-gauge catheter was advanced over the wire. The needle and guidewire were removed. The catheter was connected to a transducer line and flushed with saline. The video monitor displayed normal arterial wave forms. The catheter was secured with 2-0 silk. A sterile dressing with antibiotic disc was applied. ESTIMATED BLOOD LOSS: minimal COMPLICATIONS: None
[2018-05-29] MEDS ORDERED: fentaNYL Citrate Inj 100 MCG/2 ML Ampul IV.PUSH PRN (00:06)
--- NOTE | 2018-05-29 00:06 | XR ---
EXAM DATE: 05/28/2018 11:38 PM EDT AGE/SEX: 68 years / Female INDICATIONS: Central line placement. CLINICAL DATA: This is the patient's initial encounter. Patient reports that signs and symptoms have been present for 1 day and indicates a pain score of Nonresponsive. MEDICAL/SURGICAL HISTORY: . Chronic obstructive pulmonary disease. Hypertension. Pulmonary embo li. . [place]olecyst[place]. [place] [facility] [place]. . FINDINGS: Mild bibasilar atelectasis again seen and not significantly changed. Probable small, bilateral pleura l effusions as well. No large effusion demonstrated. No pneumothorax. There is now a right internal jugular central venous catheter with tip at the atriocaval junction. Normal, stable heart size. CONCLUSION: 1. New right IJ line with tip at the atriocaval junction. No pneumothorax. 2. Mild atelectasis and tiny effusions at both lung bases not significantly changed. Electronically signed by: Brando Yanez MD 05/29/2018 12:05 AM EDT
--- NOTE | 2018-05-29 00:16 | P.PCN ---
Date of procedure: 05/28/18 Pre-op diagnosis: Hemorrhagic shock in need of central venous access. Procedure: DATE: 05/28/18 CENTRAL LINE PLACEMENT: Right internal jugular vein. INDICATION: Central venous access CONSENT Informed consent for procedure was obtained from patient after discussion of risk, benefits, alternatives. DESCRIPTION OF THE PROCEDURE The patient was placed in supine position, mild Trendelenburg. The skin was cleansed with Chloraprep x3. Additional barrier precautions included large sterile drape, sterile gloves, sterile gown, face mask, and hat. 1 % lidocaine was used for local anesthesia. Under direct ultrasound guidance and on single attempt, the vein was accessed with an introducer needle. The guide wire was advanced and the tract was dilated. Using Seldinger technique a 7 Uzbek 20 cm antimicrobial coated triple-lumen catheter was advanced to a depth of 18 centimeters. The guide wire was removed. All ports had good return of dark venous blood and flushed easily with saline. The central line was secured with 2.0 silk as Statlock would not adhere due to diaphoresis. A sterile dressing with antibiotic disc was applied. ESTIMATED BLOOD LOSS: Minimal COMPLICATIONS: No apparent complications. STAT chest x-ray demonstrates aspect or central venous line position without apparent complication.
[2018-05-29] MEDS ORDERED: Prothrombin Complex Conc Inj 2,500 UNIT in Syringe/Bag 1 EACH IV.SIG ONE (00:40)
[2018-05-29] MEDS ORDERED: Sodium Chlor 0.9% Inj 250 ML IV.SIG SCH ×3 (01:00→03:00)
[2018-05-29] MEDS ORDERED: Dextrose 50% in Water 50 ML Vial IV.PUSH PRN (01:02)
--- NOTE | 2018-05-29 01:04 | P.PNCC ---
Subjective Subjective Remarks/Hospital Course: 68-year-old female, with past medical history significant for COPD, PE, on blood thinners, presented initially with complaint of GI bleed. Per EMS report they were called to the senior care for respiratory distress. On their arrival they state that she was not in respiratory distress but she was hypotensive with a systolic blood pressure in the 60s and delayed cap refill. Blood sugar was within normal limits. They noted dark bloody stools. They were able to secure an IV and route did give her about 350 cc of fluids prior to arrival. Her last blood pressure prior to arrival was in the 110s systolic. Patient was able to say that her abdomen hurts but was not answering too many more questions, she denied chest pain, shortness of breath. The CT of the abdomen showed only large amount of stool in the bowel and the patient passed a large volume of stool after manual disimpaction. Shortly after this she has lost consciousness, became unresponsive with GCS of 3 requiring emergent intubation for an airway protection by ED attending. 05/20: Patient still became more hypotensive. Receiving 2 units PRBCs and K Centra 4500 units x1 now. Minimal response on the ventilator. Did withdraw to vigorous stimuli/sternal rub. Afebrile. 05/21: Currently resting in bed in no acute distress. Plan for extubation today. Hemoglobins remained stable. 05/22: Afebrile. Currently on 8 L nasal cannula. Will provide 1 dose of bumetanide and attempt to diurese. Discontinue IV fluids. CT brain overnight revealed no acute intracranial findings. Subjective: 05/29 Critical care medicine reconsulted for hemorrhagic shock. Patient underwent EGD/colonoscopy on 05/27 that demonstrated severe erythematous gastritis of gastric body and antrum, diverticulosis, large circumferential colitis in sigmoid colon. CTA 05/27 demonstrates atherosclerosis in the SMA without high-grade stenosis. She does have a history of pulmonary embolism that was treated with Xarelto. Her Xarelto had been on hold due to GI bleeding but was resumed today. This afternoon she began having large dark bowel movements with clots. She has crampy abdominal pain. She is nauseated but not vomiting. Hemoglobin dropped from 10.7 this morning to 7.[address] Castro has been consulted for evaluation of ischemic colitis. Upon his evaluation he found her hypotensive with a MAP of 50 and thus has requested critical care medicine consult due to hemorrhagic shock. I am placing art line and central line. She was started on Levophed Objective Vital Signs / I&O: Vital Signs 05/28/18 01:15 05/28/18 01:30 05/28/18 01:33 Temperature Pulse Rate 65 63 63 Respiratory Rate 17 12 14 Blood Pressure 189/78 H 172/74 H Pulse Oximetry 96 98 99 05/28/18 02:00 05/28/18 02:01 05/28/18 03:00 Temperature Pulse Rate 66 64 58 L Respiratory Rate 30 H 15 15 Blood Pressure 156/70 H 156/70 H 147/65 H Pulse Oximetry 94 L 94 L 93 L 05/28/18 03:01 05/28/18 04:00 05/28/18 05:00 Temperature 98.3 F Pulse Rate 58 L 58 L 64 Respiratory Rate 15 14 17 Blood Pressure 147/65 H 149/67 H 159/68 H Pulse Oximetry 93 L 95 96 05/28/18 05:01 05/28/18 06:00 05/28/18 06:23 Temperature Pulse Rate 60 57 L 66 Respiratory Rate 16 15 23 Blood Pressure 165/70 H 190/77 H 162/70 H Pulse Oximetry 96 95 95 05/28/18 07:00 05/28/18 07:01 05/28/18 07:31 Temperature Pulse Rate 62 65 62 Respiratory Rate 20 22 17 Blood Pressure 180/81 H Pulse Oximetry 96 96 96 05/28/18 08:00 05/28/18 08:01 05/28/18 09:00 Temperature 98.0 F Pulse Rate 66 62 63 Respiratory Rate 27 H 24 20 Blood Pressure 184/81 H Pulse Oximetry 95 95 96 05/28/18 09:01 05/28/18 10:00 05/28/18 10:01 Temperature Pulse Rate 62 66 66 Respiratory Rate 18 14 18 Blood Pressure 182/77 H 130/59 L Pulse Oximetry 96 96 97 05/28/18 11:00 05/28/18 11:01 05/28/18 11:15 Temperature Pulse Rate 63 68 Respiratory Rate 16 17 Blood Pressure 149/67 H Pulse Oximetry 95 05/28/18 12:00 05/28/18 14:00 05/28/18 15:15 Temperature 98.0 F Pulse Rate 65 70 70 Respiratory Rate 16 16 Blood Pressure 137/63 Pulse Oximetry 99 05/28/18 16:00 05/28/18 18:00 05/28/18 20:40 Temperature 97.8 F 98.4 F Pulse Rate 69 85 74 Respiratory Rate 20 20 Blood Pressure 140/65 117/44 L Pulse Oximetry 90 L 99 05/28/18 20:57 05/28/18 20:58 05/28/18 21:43 Temperature 97.8 F Pulse Rate 89 80 Respiratory Rate 21 20 Blood Pressure 100/39 L Pulse Oximetry 100 98 05/28/18 23:35 Temperature 98.3 F Pulse Rate 78 Respiratory Rate 20 Blood Pressure 95/64 L Pulse Oximetry 99 Intake & Output 05/28/18 05/28/18 05/29/18 06:59 18:59 06:59 Intake Total 920 / 920 800 / 800 1215 / 1215 Balance 920 / 920 800 / 800 1215 / 1215 Weight 94.1 kg Intake: IV 200 / 200 200 / 200 Zosyn 4.5 GM Premix 4.5 gm In 200 / 200 200 / 200 100 ml @ 200 mls/hr IV.SIG Q6H [facility] Rx#:[id number] Oral 720 / 720 600 / 600 Other Rbc As-3 Leukoreduced Unit [id number] Intake (Blood Product) Amt 1200 / 1200 Rbc As-3 Leukoreduced Unit 400 / 400 [id number] Rbc As-3 Leukoreduced Unit 400 / 400 [id number] Rbc As-3 Leukoreduced Unit 400 / 400 [id number] Other: Other Intake Source Rbc As-3 Leukoreduced Unit Saline Solution [id number] # Voids 5 5 Date of Last Bowel Movement 05/28/18 05/28/18 # Bowel Movements 2 # Incontinent Bowel Movements 1 Result Diagrams: 05/30/18 17:45 05/30/18 04:15 Objective Remarks: GENERAL: 68-year-old female sitting up in [facility] bed, anxious and uncomfortable. On nasal cannula. SKIN: Warm and dry. No rash HEAD: Atraumatic. Normocephalic. EYES: Pupils equal and round. No scleral icterus. No injection or drainage. ENT: No nasal bleeding or discharge. Mucous membranes pink and moist. NECK: Trachea midline. No JVD. CARDIOVASCULAR: Regular rate and rhythm. S1, S2 no S4. 1/6 systolic murmur left sternal border. RESPIRATORY: Mildly tachypneic without accessory muscle use. Coarse breath sounds bilaterally with slight wheeze. No rales. GASTROINTESTINAL: Abdomen mildly distended, tender to palpation primarily in left mid and lower abdomen. Bowel sounds present. No hepatosplenomegaly or mass. Large dark bowel movement with clots on pad. : Voiding MUSCULOSKELETAL: Trace to 1+ edema bilateral lower extremities. NEUROLOGICAL: Eyes open, alert and interactive, oriented. Moves all extremities without focal deficit. Assessment and Plan - Problem List (1) Hemorrhagic shock Code(s): R57.8 - Other shock Status: Acute (2) Mesenteric ischemia Code(s): K55.9 - Vascular disorder of intestine, unspecified Status: Acute (3) Gastritis Code(s): K29.70 - Gastritis, unspecified, without bleeding Status: Acute (4) Anticoagulated Code(s): Z79.01 - longterm (current) use of anticoagulants Status: Acute (5) Obesity Code(s): E66.9 - Obesity, unspecified Status: Chronic (6) STEPHIE (acute kidney injury) Code(s): N17.9 - Acute kidney failure, unspecified Status: Acute (7) HLD (hyperlipidemia) Code(s): E78.5 - Hyperlipidemia, unspecified Status: Chronic (8) Chronic steroid use Status: Chronic (9) Hx pulmonary embolism Code(s): Z86.711 - Personal history of pulmonary embolism Status: Resolved (10) COPD (chronic obstructive pulmonary disease) Code(s): J44.9 - Chronic obstructive pulmonary disease, unspecified Status: Chronic (11) Acute blood loss anemia Code(s): D62 - Acute posthemorrhagic anemia Status: Acute - Assessment and Plan Plan: Plan: Neuro/Psych: Depression/anxiety disorder NOS Peripheral neuropathy Chronic insomnia Acute syncope likely vagal Has been on Xanax/tramadol as needed and trazodone.. Will use morphine now as needed for pain. On gabapentin 100 mg 3 times daily for peripheral neuropathy CT brain 05/20 and 05/21 revealed no acute intracranial findings CV: Hemorrhagic shock Essential hypertension Hyperlipidemia Questionable atrial septal defect on echocardiogram 04/18 Place art line for continuous hemodynamic monitoring. Levophed to maintain mean arterial pressure greater than 65. Actively transfusing for hemorrhagic shock. Received 2 L of crystalloid while awaiting available packed red cells as she has antibodies. Normal saline 100 mL/h peer Evaluate Dr. Hooks 04/18 admission. 2D echocardiogram time revealed EF 65-30%. LVH. Essentially normal pulmonary arterial pressures. Holding anti-hypertensives including amlodipine 10 mg daily, captopril/ hydrochlorthiazide 25/25 1 tablet daily, carvedilol 25 mg twice daily, hydralazine 100 every 8 hours in light of hemorrhagic shock. On atorvastatin 40 mg daily for dyslipidemia. Hold aspirin 81 mg daily in light of GI bleed Resp: COPD History of pulmonary embolism on chronic rivaroxaban Acute respiratory failure (resolved) Extubated 05/21 Incentive spirometer while awake Nasal cannula to maintain saturations greater than equal to 90% Albuterol/ipratropium aerosols every 4 hours with albuterol aerosols every 2 as needed for dyspnea Continue budesonide/formoterol 160/4.52 puffs twice daily GI/HEME: Ischemic colitis, sigmoid. Seen on colonoscopy 05/[address] Porter Severe erythematous gastritis, esophagitis on EGD 05/27 GI bleeding Fecal impaction, resolved Disimpacted in the ED. Hypoalbuminemia Elevated lipase of unclear significance Obesity Start Protonix drip. Serial hemoglobin. Transfuse as indicated based on hemodynamics. CT abdomen pelvis 05/27no pneumatosis. There is SMA atherosclerosis without high-grade stenosis. EGD and colonoscopy 05/27 demonstrated severe erythematous gastritis, esophagitis , diverticulitis, sigmoid ischemic colitis. Developed acute GI bleeding with hemorrhagic shock on 05/28 after receiving dose of Xarelto. Xarelto on hold. Administered K Centra and 2 doses of 25 units/ kg. Transfused based on hemodynamics to total of 6 units packed red cells which facilitated weaning Levophed from 9 mcg/min to 3 mcg/min. She does have coarse breath sounds and some comet tail on lung ultrasound consistent with pulmonary edema however chest x-ray looks relatively clear and IVC was collapsible so held off on Lasix. Recheck coags and fibrinogen. Dr. Castro states would pursue colectomy if needed for mesenteric ischemia, however resuscitating medically at this point and she appears to be responding. In addition, before pursuing colectomy, may be reasonable to re-scope or use other study to ensure that this is source of bleeding since she had abnormalities both gastric and sigmoid, though would defer to expertise and findings of GI. Endo: Hyperglycemia Chronic prednisone use - On solumedrol 40 mg IV q8 . Bedside glucose every 4 hours with medium dose insulin sliding scale as indicated. FEN/Renal: Acute kidney injury History of anterior urethral stricture Baseline creatinine around 1.1. She is voiding well and does not need Chirinos at this time CT abdomen/pelvis revealed no hydronephrosis. Negative urine eosinophils. Avoid nephrotoxic medication. ID: Obtain blood cultures. Already on Zosyn and vancomycin which will cover for translocation for mesenteric ischemia. Could discontinue vancomycin soon if cultures are negative. Access -Right IJ central venous line placed 05/28 #1 Prophylaxis -GI -pantoprazole drip as per above -DVT-SCD/holding pharmacological prophylaxis in light of GI bleed Patient is critically ill with hemorrhagic shock requiring repeated evaluation at bedside to assist with titration of vasopressors and determination of blood product requirements. Discussed with Dr. Castro on multiple occasions. Discussed with bedside RN and charge nurse. Discussed K Ron with pharmacist. Critical care time 90 minutes exclusive of separately billable procedures per (10) COPD (chronic obstructive pulmonary disease) Qualifiers: COPD type: unspecified COPD Qualified Code(s): J44.9 - Chronic obstructive pulmonary disease, unspecified
[2018-05-29 02:41] LABS: INR 1.4 Ratio; Prothrombin Time 13.8 sec (9.8-11.6)
[2018-05-29] MEDS: Morphine Inj 4 MG/ML Vial IV.PUSH PRN ×5 (02:49→19:56)
[2018-05-29] MEDS: Melatonin 5 MG Tablet PO SCH ×2 (03:19→20:01)
[2018-05-29] MEDS: Oral Hygiene Kit OROPHARYNG SCH ×3 (03:19→16:39)
[2018-05-29] MEDS: Insulin NovoLOG Aspart Correctional Sugar Inj SQ SCH ×5 (03:34→21:03)
--- NOTE | 2018-05-29 04:04 | XR ---
EXAM DATE: 05/29/2018 12:00 AM EDT AGE/SEX: 68 years / Female INDICATIONS: Shortness of breath CLINICAL DATA: This is the patient's subsequent encounter. Patient reports that signs and symptoms h ave been present for 1 week and indicates a pain score of 0/10. MEDICAL/SURGICAL HISTORY: . Chronic obstructive pulmonary disease. Hypertension. Pulmonary embo li. Cholecystectomy. COMPARISON: C, CHEST 1V SINGLE AP, 05/28/2018. . FINDINGS: Mild atelectasis and tiny effusions at each lung base not significantly changed. No pneumothorax. Hea rt size stable, within normal limits. Right IJ central venous catheter with tip at the atriocaval junction again noted. CONCLUSION: No change mild atelectasis and small effusions at each lung base. Electronically signed by: Brando Yanez MD 05/29/2018 4:03 AM EDT
[2018-05-29] MEDS: Piperacil/Tazo 4.5 GM Premix 4.5 GM/100 ML BAG IV.SIG SCH ×2 (04:07→08:19)
[2018-05-29 04:56] LABS: Baso % (Auto) 0.1 % (0.0-2.0); Hematocrit 39.8 % (35.0-46.0); Hemoglobin 13.3 gm/dL (11.6-15.3); Lymph % (Auto) 3.9 % (9.0-44.0); Mean Corpuscular HGB Conc 33.5 % (32.0-36.0); Mean Corpuscular Volume 86.5 fL (80.0-100.0); Mean Platelet Volume 8.5 fL (7.0-11.0); Mono % (Auto) 3.8 % (0.0-8.0); Neut # (Auto) 24.9 th/mm3 (1.8-7.7); Neut % (Auto) 92.2 % (16.0-70.0); Platelet Count 129 th/mm3 (150-450)
[2018-05-29] MEDS: Sod Chloride 0.9% Inj 1,000 ML IV.SIG SCH ×2 (06:50→17:10)
[2018-05-29] MEDS: Senna/Docusate Sodium 8.6/50 MG Tablet PO SCH ×2 (08:11→20:02)
[2018-05-29] MEDS: MethylPREDNISolone Sod Succinate Inj 40 MG/ML Vial IV.PUSH SCH ×2 (08:19→20:01)
[2018-05-29] MEDS: traZODone 50 MG Tablet PO SCH (08:19)
[2018-05-29] MEDS: Gabapentin 100 MG Capsule PO SCH ×3 (08:19→17:15)
[2018-05-29] MEDS: Polyvinyl Alcohol/Povidone PF Opth Drops 0.4 ML Dropperette EACH EYE SCH ×2 (08:20→20:02)
[2018-05-29] MEDS: Budesonide-Formoterol 160/4.5 MCG 6 GM Inhaler INH SCH ×2 (08:20→20:02)
[2018-05-29] MEDS: Mupirocin 2% Nasal Oint Topical Syringe EACH NARE SCH ×2 (08:20→20:02)
[2018-05-29] MEDS: Chlorhexidine 0.12% Oral Kit 15 ML UDC OROPHARYNG SCH ×2 (08:21→19:55)
[2018-05-29] MEDS ORDERED: Pharmacy Ordered Lab Info OTHER ONE (09:45)
[2018-05-29 10:35] LABS: INR 1.2 Ratio
[2018-05-29] MEDS: Vancomycin Inj 1,750 MG in Sodium Chlor 0.9% Inj 500 ML IV.SIG SCH (11:14)
[2018-05-29] MEDS: Lactic Acid (Ammonium Lactate) 12% Lotion 225 GM Bottle TOPICAL SCH (11:15)
--- NOTE | 2018-05-29 12:53 | P.PN ---
Subjective Interval history: Had to receive 6 U packed red cells yesterdy for GI bleed. Off xarelto again. On O2 5 L. Weak and SOB. Physical Exam Vital signs: Vital Signs 05/28/18 14:00 05/28/18 15:15 05/28/18 16:00 Temperature 97.8 F Pulse Rate 70 70 69 Respiratory Rate 16 20 Blood Pressure 140/65 Pulse Oximetry 90 L 05/28/18 18:00 05/28/18 20:00 05/28/18 20:40 Temperature 98.4 F Pulse Rate 85 77 74 Respiratory Rate 18 20 Blood Pressure 117/44 L Pulse Oximetry 99 05/28/18 20:57 05/28/18 20:58 05/28/18 21:43 Temperature 97.8 F Pulse Rate 89 80 Respiratory Rate 21 20 Blood Pressure 100/39 L Pulse Oximetry 100 98 05/28/18 22:00 05/28/18 22:51 05/28/18 22:54 Temperature Pulse Rate 80 77 78 Respiratory Rate Blood Pressure 91/48 L Pulse Oximetry 98 98 05/28/18 22:57 05/28/18 23:00 05/28/18 23:03 Temperature Pulse Rate 80 79 78 Respiratory Rate Blood Pressure 97/50 L 95/53 L 99/55 L Pulse Oximetry 98 99 98 05/28/18 23:06 05/28/18 23:09 05/28/18 23:12 Temperature Pulse Rate 76 78 77 Respiratory Rate Blood Pressure 102/53 L 102/55 L 106/58 L Pulse Oximetry 98 98 97 05/28/18 23:15 05/28/18 23:18 05/28/18 23:21 Temperature Pulse Rate 77 78 79 Respiratory Rate Blood Pressure 107/56 L 106/52 L 101/55 L Pulse Oximetry 98 99 100 05/28/18 23:24 05/28/18 23:27 05/28/18 23:30 Temperature Pulse Rate 79 77 77 Respiratory Rate Blood Pressure 102/52 L 99/54 L 105/54 L Pulse Oximetry 99 97 98 05/28/18 23:33 05/28/18 23:35 05/28/18 23:36 Temperature 98.3 F Pulse Rate 75 78 77 Respiratory Rate 9 L 20 14 Blood Pressure 111/54 L 95/64 L 98/51 L Pulse Oximetry 98 99 99 05/29/18 00:00 05/29/18 00:30 05/29/18 00:48 Temperature 98.3 F Pulse Rate 83 84 91 H Respiratory Rate 17 18 15 Blood Pressure 102/56 L 107/71 110/53 L Pulse Oximetry 99 100 97 05/29/18 01:00 05/29/18 01:31 05/29/18 01:33 Temperature 98 F Pulse Rate 93 H 92 H 88 Respiratory Rate 16 15 18 Blood Pressure 114/55 L 116/82 113/52 L Pulse Oximetry 87 L 100 100 05/29/18 02:00 05/29/18 02:04 05/29/18 02:30 Temperature Pulse Rate 84 87 Respiratory Rate 15 17 Blood Pressure 119/55 L 127/58 L Pulse Oximetry 99 95 99 05/29/18 03:00 05/29/18 03:30 05/29/18 03:43 Temperature Pulse Rate 83 79 83 Respiratory Rate 16 18 17 Blood Pressure 134/60 132/56 L Pulse Oximetry 98 98 05/29/18 03:44 05/29/18 04:00 05/29/18 04:01 Temperature Pulse Rate 79 80 Respiratory Rate 18 18 Blood Pressure 87/52 L Pulse Oximetry 99 99 99 05/29/18 06:00 05/29/18 07:17 05/29/18 08:00 Temperature Pulse Rate 78 77 77 Respiratory Rate 13 Blood Pressure Pulse Oximetry 96 98 05/29/18 10:00 05/29/18 12:00 Temperature Pulse Rate 80 80 Respiratory Rate Blood Pressure Pulse Oximetry Intake & Output 05/28/18 05/29/18 05/29/18 18:59 06:59 18:59 Intake Total 800 / 800 5082.5 / 5082.5 135 / 135 Output Total 650 / 650 Balance 800 / 800 4432.5 / 4432.5 135 / 135 Weight 97.5 kg Intake: IV 200 / 200 1867.5 / 1867.5 135 / 135 Levophed-Dextrose 4 mg/250 ml 250 / 250 Drip 4 mg In 250 ml @ 2 MCG/MIN 7.5 mls/hr IV.SIG TITRATE PRN Rx#:[id number] Protonix Inj 40 MG In NS Inj 35 35 / 35 ML @ 420 mls/hr IV.SIG [facility] Rx#:[id number] Zosyn 4.5 GM Premix 4.5 gm In 200 / 200 100 / 100 100 / 100 100 ml @ 200 mls/hr IV.SIG Q6H [facility] Rx#:[id number] NS Inj 1,000 ML @ 100 mls/hr IV 1000 / 1000 .SIG .Q10H [facility] Rx#:[id number] Vancomycin Inj 1,750 MG In NS 517.5 / 517.5 Inj 500 ML @ 250 mls/hr IV.SIG Q24H [facility] Rx#:[id number] Oral 600 / 600 600 / 600 Anesthesia Amount 200 / 200 Other Rbc As-3 Leukoreduced Unit [id number] Intake (Blood Product) Amt 2400 / 2400 Rbc As-3 Leukoreduced Unit 400 / 400 [id number] Rbc As-3 Leukoreduced Unit 400 / 400 [id number] Rbc As-3 Leukoreduced Unit 400 / 400 [id number] Rbc As-3 Leukoreduced Unit 400 / 400 [id number] Rbc As-3 Leukoreduced Unit 400 / 400 [id number] Rbc As-3 Leukoreduced Unit 400 / 400 [id number] Output: Urine 600 / 600 Gastric Drainage 50 / 50 Oral Orogastric Tube 50 / 50 Other: Other Intake Source Rbc As-3 Leukoreduced Unit Saline Solution [id number] # Voids 5 5 # Incontinent Voids 6 Date of Last Bowel Movement 05/28/18 05/28/18 05/28/18 # Bowel Movements 2 # Incontinent Bowel Movements 1 1 Narrative: GENERAL: Pale awake and seems dyspneic SKIN: Warm and dry. No rash. HEAD: Atraumatic. Normocephalic. EYES: Pupils equal and round. No scleral icterus. No injection or drainage. ENT: No nasal bleeding or discharge. Mucous membranes pink and moist. NECK: Trachea midline. No JVD. CARDIOVASCULAR: Regular rate and rhythm. S1, S2 no S4. RESPIRATORY: Diffuse wheezing, bilateral. GASTROINTESTINAL: Nontender, soft. MUSCULOSKELETAL: Extremities with trace bilateral lower extremity edema. No obvious deformities. NEUROLOGICAL: Awake and alert. Moves upper and lower extremities. - Urinary Catheter Management Indwelling Urethral Catheter Cath placed during this visit: yes Reason for continuing: Hourly intake/output Insertion date: 05/20/18 Insertion time: 06:00 Results - Labs CBC & Chem 7: 05/29/18 09:30 05/29/18 04:15 Laboratory Results - last 24 hr 05/20/18 05/28/18 05/28/18 07:13 13:20 18:02 WBC RBC Hgb Hct MCV MCH MCHC RDW Plt Count MPV Neut % (Auto) Lymph % (Auto) [place] % (Auto) Eos % (Auto) Baso % (Auto) Neut # (Auto) Lymph # (Auto) [place] # (Auto) Eos # (Auto) Baso # (Auto) WBC Differential Differential Comment PT INR APTT Fibrinogen Creatinine Estimated GFR POC Glucose 267 H 273 H Lactic Acid Vancomycin Trough Blood Type Antibody Screen MTS Gel Crossmatch See Detail Bld Prod Order Comment 05/28/18 05/28/18 05/28/18 19:09 19:09 20:32 WBC RBC Hgb 7.4 L D Hct 23.2 L MCV MCH MCHC RDW Plt Count MPV Neut % (Auto) Lymph % (Auto) [place] % (Auto) Eos % (Auto) Baso % (Auto) Neut # (Auto) Lymph # (Auto) [place] # (Auto) Eos # (Auto) Baso # (Auto) WBC Differential Differential Comment PT INR APTT Fibrinogen Creatinine Estimated GFR POC Glucose Lactic Acid Vancomycin Trough Blood Type A Positive Antibody Screen Negative MTS Gel Crossmatch See Detail See Detail Bld Prod Order Comment 05/28/18 05/28/18 05/29/18 20:47 23:20 00:08 WBC RBC Hgb 7.9 L Hct 23.5 L MCV MCH MCHC RDW Plt Count MPV Neut % (Auto) Lymph % (Auto) [place] % (Auto) Eos % (Auto) Baso % (Auto) Neut # (Auto) Lymph # (Auto) [place] # (Auto) Eos # (Auto) Baso # (Auto) WBC Differential Differential Comment PT INR APTT Fibrinogen Creatinine Estimated GFR POC Glucose Lactic Acid 1.0 Vancomycin Trough Blood Type Antibody Screen MTS Gel Crossmatch See Detail Bld Prod Order Comment Cancelled 05/29/18 05/29/18 05/29/18 00:12 00:42 01:58 WBC RBC Hgb Hct MCV MCH MCHC RDW Plt Count MPV Neut % (Auto) Lymph % (Auto) [place] % (Auto) Eos % (Auto) Baso % (Auto) Neut # (Auto) Lymph # (Auto) [place] # (Auto) Eos # (Auto) Baso # (Auto) WBC Differential Differential Comment PT 13.8 H INR 1.4 APTT Fibrinogen 119 L Creatinine Estimated GFR POC Glucose 272 H Lactic Acid Vancomycin Trough Blood Type Antibody Screen MTS Gel Crossmatch See Detail Bld Prod Order Comment 05/29/18 05/29/18 05/29/18 01:58 02:19 03:30 WBC RBC Hgb Hct MCV MCH MCHC RDW Plt Count MPV Neut % (Auto) Lymph % (Auto) [place] % (Auto) Eos % (Auto) Baso % (Auto) Neut # (Auto) Lymph # (Auto) [place] # (Auto) Eos # (Auto) Baso # (Auto) WBC Differential Differential Comment PT INR APTT Fibrinogen Creatinine Estimated GFR POC Glucose 338 H Lactic Acid 1.1 Vancomycin Trough Blood Type Antibody Screen MTS Gel Crossmatch See Detail Bld Prod Order Comment Cancelled 05/29/18 05/29/18 05/29/18 04:15 04:15 04:15 WBC 27.0 H RBC 4.60 Hgb 13.3 D Hct 39.8 MCV 86.5 MCH 29.0 MCHC 33.5 RDW 15.0 D Plt Count 129 L D MPV 8.5 Neut % (Auto) 92.2 H Lymph % (Auto) 3.9 L [place]mons[place] % (Auto) 3.8 Eos % (Auto) 0.0 Baso % (Auto) 0.1 Neut # (Auto) 24.9 H Lymph # (Auto) 1.0 [place] # (Auto) 1.0 H Eos # (Auto) 0.0 Baso # (Auto) 0.0 WBC Differential . Differential Comment Auto diff final PT INR APTT Fibrinogen Creatinine 1.31 H Estimated GFR 40 L POC Glucose Lactic Acid Vancomycin Trough 12.7 H Blood Type Antibody Screen MTS Gel Crossmatch Bld Prod Order Comment 05/29/18 05/29/18 05/29/18 08:10 09:30 09:30 WBC RBC Hgb 12.6 Hct MCV MCH MCHC RDW Plt Count MPV Neut % (Auto) Lymph % (Auto) [place] % (Auto) Eos % (Auto) Baso % (Auto) Neut # (Auto) Lymph # (Auto) [place] # (Auto) Eos # (Auto) Baso # (Auto) WBC Differential Differential Comment PT 12.0 H INR 1.2 APTT 21.0 L Fibrinogen 153 L Creatinine Estimated GFR POC Glucose 283 H Lactic Acid Vancomycin Trough Blood Type Antibody Screen MTS Gel Crossmatch Bld Prod Order Comment 05/29/18 12:28 WBC RBC Hgb Hct MCV MCH MCHC RDW Plt Count MPV Neut % (Auto) Lymph % (Auto) [place] % (Auto) Eos % (Auto) Baso % (Auto) Neut # (Auto) Lymph # (Auto) [place] # (Auto) Eos # (Auto) Baso # (Auto) WBC Differential Differential Comment PT INR APTT Fibrinogen Creatinine Estimated GFR POC Glucose 257 H Lactic Acid Vancomycin Trough Blood Type Antibody Screen MTS Gel Crossmatch Bld Prod Order Comment Microbiology 05/28/18 18:40 Stool Stool Occult Blood (SARAHI) - Final Hemoccult positive - Imaging Impressions Chest X-Ray 05/28/18 23:38 CONCLUSION: 1. New right IJ line with tip at the atriocaval junction. No pneumothorax. 2. Mild atelectasis and tiny effusions at both lung bases not significantly changed. Chest X-Ray 05/29/18 00:00 CONCLUSION: No change mild atelectasis and small effusions at each lung base. - Procedures central line placement. Assessment and Plan - Assessment (1) GI bleed requiring more than 4 units of blood in 24 hours, ICU, or surgery Code(s): K92.2 - Gastrointestinal hemorrhage, unspecified Status: Acute (2) Anemia Code(s): D64.9 - Anemia, unspecified Status: Acute (3) Shock Code(s): R57.9 - Shock, unspecified Status: Acute (4) COPD (chronic obstructive pulmonary disease) Code(s): J44.9 - Chronic obstructive pulmonary disease, unspecified Status: Acute (5) Major depression, recurrent Code(s): F33.9 - Major depressive disorder, recurrent, unspecified Status: Acute (6) Sepsis Code(s): A41.9 - Sepsis, unspecified organism Status: Acute (7) Atelectasis Code(s): J98.11 - Atelectasis Status: Acute - Plan 1. Continue O2 at 4 L. 2. watch Hgb and transfuse if Necessary 3. Duonebs qid prn. 4. taper solumedrol to 20 mg BID 5. CBC,BMP in am 6. GI and surgical Evaluation (4) COPD (chronic obstructive pulmonary disease) Qualifiers: COPD type: unspecified COPD Qualified Code(s): J44.9 - Chronic obstructive pulmonary disease, unspecified
[2018-05-29] MEDS: Pantoprazole Inj 80 MG in Sodium Chlor 0.9% Inj 100 ML IV.CONT SCH ×2 (13:35→22:11)
--- NOTE | 2018-05-29 14:17 | P.PNGS ---
Subjective Interval history: Resting in bed Asking for a fruit smoothie Physical Exam Vital signs: Vital Signs 05/28/18 15:15 05/28/18 16:00 05/28/18 18:00 Temperature 97.8 F Pulse Rate 70 69 85 Respiratory Rate 16 20 Blood Pressure 140/65 Pulse Oximetry 90 L 05/28/18 20:00 05/28/18 20:40 05/28/18 20:57 Temperature 98.4 F Pulse Rate 77 74 89 Respiratory Rate 18 20 21 Blood Pressure 117/44 L Pulse Oximetry 99 05/28/18 20:58 05/28/18 21:43 05/28/18 22:00 Temperature 97.8 F Pulse Rate 80 80 Respiratory Rate 20 Blood Pressure 100/39 L Pulse Oximetry 100 98 05/28/18 22:51 05/28/18 22:54 05/28/18 22:57 Temperature Pulse Rate 77 78 80 Respiratory Rate Blood Pressure 91/48 L 97/50 L Pulse Oximetry 98 98 98 05/28/18 23:00 05/28/18 23:03 05/28/18 23:06 Temperature Pulse Rate 79 78 76 Respiratory Rate Blood Pressure 95/53 L 99/55 L 102/53 L Pulse Oximetry 99 98 98 05/28/18 23:09 05/28/18 23:12 05/28/18 23:15 Temperature Pulse Rate 78 77 77 Respiratory Rate Blood Pressure 102/55 L 106/58 L 107/56 L Pulse Oximetry 98 97 98 05/28/18 23:18 05/28/18 23:21 05/28/18 23:24 Temperature Pulse Rate 78 79 79 Respiratory Rate Blood Pressure 106/52 L 101/55 L 102/52 L Pulse Oximetry 99 100 99 05/28/18 23:27 05/28/18 23:30 05/28/18 23:33 Temperature Pulse Rate 77 77 75 Respiratory Rate 9 L Blood Pressure 99/54 L 105/54 L 111/54 L Pulse Oximetry 97 98 98 05/28/18 23:35 05/28/18 23:36 05/29/18 00:00 Temperature 98.3 F Pulse Rate 78 77 83 Respiratory Rate 20 14 17 Blood Pressure 95/64 L 98/51 L 102/56 L Pulse Oximetry 99 99 99 05/29/18 00:30 05/29/18 00:48 05/29/18 01:00 Temperature 98.3 F Pulse Rate 84 91 H 93 H Respiratory Rate 18 15 16 Blood Pressure 107/71 110/53 L 114/55 L Pulse Oximetry 100 97 87 L 05/29/18 01:31 05/29/18 01:33 05/29/18 02:00 Temperature 98 F Pulse Rate 92 H 88 84 Respiratory Rate 15 18 15 Blood Pressure 116/82 113/52 L 119/55 L Pulse Oximetry 100 100 99 05/29/18 02:04 05/29/18 02:30 05/29/18 03:00 Temperature Pulse Rate 87 83 Respiratory Rate 17 16 Blood Pressure 127/58 L 134/60 Pulse Oximetry 95 99 98 05/29/18 03:30 05/29/18 03:43 05/29/18 03:44 Temperature Pulse Rate 79 83 Respiratory Rate 18 17 Blood Pressure 132/56 L Pulse Oximetry 98 99 05/29/18 04:00 05/29/18 04:01 05/29/18 05:00 Temperature Pulse Rate 79 80 80 Respiratory Rate 18 18 10 L Blood Pressure 87/52 L 125/58 L Pulse Oximetry 99 99 97 05/29/18 06:00 05/29/18 07:00 05/29/18 07:17 Temperature Pulse Rate 78 79 77 Respiratory Rate 14 15 13 Blood Pressure 117/59 L 128/56 L Pulse Oximetry 97 96 96 05/29/18 08:00 05/29/18 09:00 05/29/18 10:00 Temperature 98.0 F Pulse Rate 77 73 74 Respiratory Rate 12 14 12 Blood Pressure 115/56 L 121/56 L 123/58 L Pulse Oximetry 97 97 98 05/29/18 11:00 05/29/18 12:00 05/29/18 12:59 Temperature 98.5 F Pulse Rate 75 76 67 Respiratory Rate 12 14 11 L Blood Pressure 135/59 L 137/64 Pulse Oximetry 97 99 99 05/29/18 13:00 Temperature Pulse Rate Respiratory Rate Blood Pressure 151/68 H Pulse Oximetry Intake & Output 05/28/18 05/29/18 05/29/18 18:59 06:59 18:59 Intake Total 800 / 800 5082.5 / 5082.5 135 / 135 Output Total 650 / 650 Balance 800 / 800 4432.5 / 4432.5 135 / 135 Weight 97.5 kg Intake: IV 200 / 200 1867.5 / 1867.5 135 / 135 Levophed-Dextrose 4 mg/250 ml 250 / 250 Drip 4 mg In 250 ml @ 2 MCG/MIN 7.5 mls/hr IV.SIG TITRATE PRN Rx#:[id number] Protonix Inj 40 MG In NS Inj 35 35 / 35 ML @ 420 mls/hr IV.SIG BOLUS ONE Rx#:[id number] Zosyn 4.5 GM Premix 4.5 gm In 200 / 200 100 / 100 100 / 100 100 ml @ 200 mls/hr IV.SIG Q6H [facility] Rx#:[id number] NS Inj 1,000 ML @ 100 mls/hr IV 1000 / 1000 .SIG .Q10H [facility] Rx#:[id number] Vancomycin Inj 1,750 MG In NS 517.5 / 517.5 Inj 500 ML @ 250 mls/hr IV.SIG Q24H [facility] Rx#:[id number] Oral 600 / 600 600 / 600 Anesthesia Amount 200 / 200 Other Rbc As-3 Leukoreduced Unit [id number] Intake (Blood Product) Amt 2400 / 2400 Rbc As-3 Leukoreduced Unit 400 / 400 [id number] Rbc As-3 Leukoreduced Unit 400 / 400 [id number] Rbc As-3 Leukoreduced Unit 400 / 400 [id number] Rbc As-3 Leukoreduced Unit 400 / 400 [id number] Rbc As-3 Leukoreduced Unit 400 / 400 [id number] Rbc As-3 Leukoreduced Unit 400 / 400 [id number] Output: Urine 600 / 600 Gastric Drainage 50 / 50 Oral Orogastric Tube 50 / 50 Other: Other Intake Source Rbc As-3 Leukoreduced Unit Saline Solution [id number] # Voids 5 5 # Incontinent Voids 6 Date of Last Bowel Movement 05/28/18 05/28/18 05/28/18 # Bowel Movements 2 # Incontinent Bowel Movements 1 1 Narrative: Alert and awake Abd: soft; minimally tender to palpation; non distended - Urinary Catheter Management Indwelling Urethral Catheter Cath placed during this visit: yes Reason for continuing: Hourly intake/output Insertion date: 05/20/18 Insertion time: 06:00 Results - Labs 06/11/18 02:50 06/11/18 02:50 Laboratory Results - last 24 hr 05/20/18 05/28/18 05/28/18 07:13 18:02 19:09 WBC RBC Hgb Hct MCV MCH MCHC RDW Plt Count MPV Neut % (Auto) Lymph % (Auto) [place] % (Auto) Eos % (Auto) Baso % (Auto) Neut # (Auto) Lymph # (Auto) [place] # (Auto) Eos # (Auto) Baso # (Auto) WBC Differential Differential Comment PT INR APTT Fibrinogen Creatinine Estimated GFR POC Glucose 273 H Lactic Acid Vancomycin Trough Blood Type A Positive Antibody Screen Negative MTS Gel Crossmatch See Detail See Detail Bld Prod Order Comment 05/28/18 05/28/18 05/28/18 19:09 20:32 20:47 WBC RBC Hgb 7.4 L D Hct 23.2 L MCV MCH MCHC RDW Plt Count MPV Neut % (Auto) Lymph % (Auto) [place] % (Auto) Eos % (Auto) Baso % (Auto) Neut # (Auto) Lymph # (Auto) [place] # (Auto) Eos # (Auto) Baso # (Auto) WBC Differential Differential Comment PT INR APTT Fibrinogen Creatinine Estimated GFR POC Glucose Lactic Acid 1.0 Vancomycin Trough Blood Type Antibody Screen MTS Gel Crossmatch See Detail Bld Prod Order Comment 05/28/18 05/29/18 05/29/18 23:20 00:08 00:12 WBC RBC Hgb 7.9 L Hct 23.5 L MCV MCH MCHC RDW Plt Count MPV Neut % (Auto) Lymph % (Auto) [place] % (Auto) Eos % (Auto) Baso % (Auto) Neut # (Auto) Lymph # (Auto) [place] # (Auto) Eos # (Auto) Baso # (Auto) WBC Differential Differential Comment PT INR APTT Fibrinogen Creatinine Estimated GFR POC Glucose 272 H Lactic Acid Vancomycin Trough Blood Type Antibody Screen MTS Gel Crossmatch See Detail Bld Prod Order Comment Cancelled 05/29/18 05/29/18 05/29/18 00:42 01:58 01:58 WBC RBC Hgb Hct MCV MCH MCHC RDW Plt Count MPV Neut % (Auto) Lymph % (Auto) [place] % (Auto) Eos % (Auto) Baso % (Auto) Neut # (Auto) Lymph # (Auto) [place] # (Auto) Eos # (Auto) Baso # (Auto) WBC Differential Differential Comment PT 13.8 H INR 1.4 APTT Fibrinogen 119 L Creatinine Estimated GFR POC Glucose Lactic Acid 1.1 Vancomycin Trough Blood Type Antibody Screen MTS Gel Crossmatch See Detail Bld Prod Order Comment 05/29/18 05/29/18 05/29/18 02:19 03:30 04:15 WBC 27.0 H RBC 4.60 Hgb 13.3 D Hct 39.8 MCV 86.5 MCH 29.0 MCHC 33.5 RDW 15.0 D Plt Count 129 L D MPV 8.5 Neut % (Auto) 92.2 H Lymph % (Auto) 3.9 L [place] % (Auto) 3.8 Eos % (Auto) 0.0 Baso % (Auto) 0.1 Neut # (Auto) 24.9 H Lymph # (Auto) 1.0 [place] # (Auto) 1.0 H Eos # (Auto) 0.0 Baso # (Auto) 0.0 WBC Differential . Differential Comment Auto diff final PT INR APTT Fibrinogen Creatinine Estimated GFR POC Glucose 338 H Lactic Acid Vancomycin Trough Blood Type Antibody Screen MTS Gel Crossmatch See Detail Bld Prod Order Comment Cancelled 05/29/18 05/29/18 05/29/18 04:15 04:15 08:10 WBC RBC Hgb Hct MCV MCH MCHC RDW Plt Count MPV Neut % (Auto) Lymph % (Auto) [place] % (Auto) Eos % (Auto) Baso % (Auto) Neut # (Auto) Lymph # (Auto) [place] # (Auto) Eos # (Auto) Baso # (Auto) WBC Differential Differential Comment PT INR APTT Fibrinogen Creatinine 1.31 H Estimated GFR 40 L POC Glucose 283 H Lactic Acid Vancomycin Trough 12.7 H Blood Type Antibody Screen MTS Gel Crossmatch Bld Prod Order Comment 05/29/18 05/29/18 05/29/18 09:30 09:30 12:28 WBC RBC Hgb 12.6 Hct MCV MCH MCHC RDW Plt Count MPV Neut % (Auto) Lymph % (Auto) [place] % (Auto) Eos % (Auto) Baso % (Auto) Neut # (Auto) Lymph # (Auto) [place] # (Auto) Eos # (Auto) Baso # (Auto) WBC Differential Differential Comment PT 12.0 H INR 1.2 APTT 21.0 L Fibrinogen 153 L Creatinine Estimated GFR POC Glucose 257 H Lactic Acid Vancomycin Trough Blood Type Antibody Screen MTS Gel Crossmatch Bld Prod Order Comment - Imaging Imaging: ITS Impressions Abdomen X-Ray 05/20/18 02:10 CONCLUSION: Nonspecific, benign abdomen appearance. Abdomen/Pelvis CT 05/20/18 02:10 CONCLUSION: Rectal fecal impaction and likely mild proctitis Head CT 05/21/18 19:41 CONCLUSION: 1. No acute findings. Stable exam since May 20. Chronic white matter ischemic changes. Retention cyst right maxillary sinus. . Abdomen/Pelvis CTA 05/27/18 00:00 CONCLUSION: 1. There is severe atherosclerotic disease of the aorta. Atherosclerotic disease is present within the superior mesenteric artery but no high-grade stenosis or occlusion is visualized on the arterial side of the mesenteric vasculature. Please note that the venous mesenteric structures are not well evaluated on this examination timed for arterial enhancement. Additionally, there are no secondary findings to suggest mesenteric ischemia including no intramural air. 2. Wall thickening of the rectum suggesting a proctitis. 3. New small bilateral pleural effusions and new small volume of free fluid in the abdomen and pelvis. Also, anasarca is new. Chest X-Ray 05/29/18 00:00 CONCLUSION: No change mild atelectasis and small effusions at each lung base. Assessment and Plan - Assessment (1) GI hemorrhage Code(s): K92.2 - Gastrointestinal hemorrhage, unspecified Status: Acute Plan: 68 year old female with GIB; ischemic colitis -On Levophed 4 mcg---BP in the low 100s-110s -WBC up to 27k---recheck tomorrow -LA 1.1 -Continue to hold OAC -Continue to resuscitate the patient -Will continue non operative treatment unless patient clinically changes Clinically improved Weaning pressors, blood loss decreasing dramatically Continuing to follow Elevated WBC's may be due to acute bleed and margination of white cells. The exam, history, and the medical decision-making described in the above note were completed with the assistance of the mid-level provider. I reviewed and agree with the findings presented. I attest that I had a [id number] encounter with the patient on the same day, and personally performed and documented my assessment and findings in the medical record. (2) Abdominal pain, acute Code(s): R10.9 - Unspecified abdominal pain Status: Acute (3) Acute blood loss anemia Code(s): D62 - Acute posthemorrhagic anemia Status: Acute (4) Acute hypotension Code(s): I95.9 - Hypotension, unspecified Status: Acute
[2018-05-29] MEDS: Piperacil/Tazo 3.375 GM Premix 50 ML IV.SIG SCH ×2 (15:34→20:01)
[2018-05-30] MEDS: Insulin NovoLOG Aspart Correctional Sugar Inj SQ SCH ×5 (00:09→21:08)
[2018-05-30] MEDS: Oral Hygiene Kit OROPHARYNG SCH ×4 (00:09→21:08)
[2018-05-30] MEDS: Piperacil/Tazo 3.375 GM Premix 50 ML IV.SIG SCH ×4 (02:30→22:09)
[2018-05-30] MEDS: Morphine Inj 4 MG/ML Vial IV.PUSH PRN ×3 (03:42→22:10)
[2018-05-30] MEDS: Sod Chloride 0.9% Inj 1,000 ML IV.SIG SCH ×2 (03:43→21:06)
[2018-05-30 05:02] LABS: Baso % (Auto) 0.1 % (0.0-2.0); Hematocrit 30.2 % (35.0-46.0); Hemoglobin 10.3 gm/dL (11.6-15.3); Lymph # (Auto) 1.2 th/mm3 (1.0-4.8); Lymph % (Auto) 6.8 % (9.0-44.0); Mean Corpuscular HGB Conc 34.2 % (32.0-36.0); Mean Corpuscular Hemoglobin 29.6 pg (27.0-34.0); Mean Corpuscular Volume 86.4 fL (80.0-100.0); Mean Platelet Volume 8.7 fL (7.0-11.0); Mono # (Auto) 0.9 th/mm3 (0.0-0.9); Mono % (Auto) 5.2 % (0.0-8.0); Neut # (Auto) 14.9 th/mm3 (1.8-7.7); Neut % (Auto) 87.9 % (16.0-70.0); Platelet Count 115 th/mm3 (150-450); Red Blood Count 3.49 mil/mm3 (4.00-5.30); Red Cell Distribution Width 15.6 % (11.6-17.2)
[2018-05-30 05:21] LABS: Albumin 1.9 g/dL (3.4-5.0); Calcium 7.4 mg/dL (8.5-10.1); Carbon Dioxide 30.2 meq/L (21.0-32.0); Potassium 3.9 meq/L (3.5-5.1)
[2018-05-30 07:31] LABS: Lymphocytes 9 % (9-44); Metamyelocytes 3 % (0-1); Monocytes 2 % (0-8)
[2018-05-30 07:32] LABS: Platelet Morphology Normal (Normal); RBC Morphology Normal (Normal)
[2018-05-30] MEDS: Chlorhexidine 0.12% Oral Kit 15 ML UDC OROPHARYNG SCH ×2 (08:05→21:08)
[2018-05-30] MEDS: traZODone 50 MG Tablet PO SCH (09:05)
--- NOTE | 2018-05-30 09:23 | P.PNCC ---
Subjective Subjective Remarks/Hospital Course: 68-year-old female, with past medical history significant for COPD, PE, on blood thinners, presented initially with complaint of GI bleed. Per EMS report they were called to the [facility] for respiratory distress. On their arrival they state that she was not in respiratory distress but she was hypotensive with a systolic blood pressure in the 60s and delayed cap refill. Blood sugar was within normal limits. They noted dark bloody stools. They were able to secure an IV and route did give her about 350 cc of fluids prior to arrival. Her last blood pressure prior to arrival was in the 110s systolic. Patient was able to say that her abdomen hurts but was not answering too many more questions, she denied chest pain, shortness of breath. The CT of the abdomen showed only large amount of stool in the bowel and the patient passed a large volume of stool after manual disimpaction. Shortly after this she has lost consciousness, became unresponsive with GCS of 3 requiring emergent intubation for an airway protection by ED attending. 05/20: Patient still became more hypotensive. Receiving 2 units PRBCs and K Centra 4500 units x1 now. Minimal response on the ventilator. Did withdraw to vigorous stimuli/sternal rub. Afebrile. 05/21: Currently resting in bed in no acute distress. Plan for extubation today. Hemoglobins remained stable. 05/22: Afebrile. Currently on 8 L nasal cannula. Will provide 1 dose of bumetanide and attempt to diurese. Discontinue IV fluids. CT brain overnight revealed no acute intracranial findings. Subjective: 05/29 Critical care medicine reconsulted for hemorrhagic shock. Patient underwent EGD/colonoscopy on 05/27 that demonstrated severe erythematous gastritis of gastric body and antrum, diverticulosis, large circumferential colitis in sigmoid colon. CTA 05/27 demonstrates atherosclerosis in the SMA without high-grade stenosis. She does have a history of pulmonary embolism that was treated with Xarelto. Her Xarelto had been on hold due to GI bleeding but was resumed today. This afternoon she began having large dark bowel movements with clots. She has crampy abdominal pain. She is nauseated but not vomiting. Hemoglobin dropped from 10.7 this morning to 7.[address] Castro has been consulted for evaluation of ischemic colitis. Upon his evaluation he found her hypotensive with a MAP of 50 and thus has requested critical care medicine consult due to hemorrhagic shock. I am placing art line and central line. She was started on Levophed 05/30: Shock is resolved patient is hypotensive Levophed just discontinued. Systolic blood pressure close to 180s. Hemoglobin remained stable. Lactic acid had remained normal. Had an episode of black stool overnight could be old blood, there was no hemoglobin drop Objective Vital Signs / I&O: Vital Signs 05/29/18 10:00 05/29/18 11:00 05/29/18 12:00 Temperature 98.5 F Pulse Rate 74 75 76 Respiratory Rate 12 12 14 Blood Pressure 123/58 L 135/59 L 137/64 Pulse Oximetry 98 97 99 05/29/18 12:59 05/29/18 13:00 05/29/18 14:00 Temperature Pulse Rate 67 68 71 Respiratory Rate 11 L 12 15 Blood Pressure 151/68 H 153/67 H Pulse Oximetry 99 99 96 05/29/18 14:33 05/29/18 15:00 05/29/18 15:01 Temperature Pulse Rate 74 70 70 Respiratory Rate 16 11 L 16 Blood Pressure 132/61 Pulse Oximetry 98 97 97 05/29/18 16:00 05/29/18 17:00 05/29/18 18:00 Temperature 98.2 F Pulse Rate 78 70 71 Respiratory Rate 23 11 L 11 L Blood Pressure 119/76 111/54 L 127/66 Pulse Oximetry 98 97 99 05/29/18 19:00 05/29/18 20:00 05/29/18 20:01 Temperature 97.8 F Pulse Rate 71 73 68 Respiratory Rate 21 18 10 L Blood Pressure 140/65 170/71 H Pulse Oximetry 99 99 99 05/29/18 20:20 05/29/18 21:00 05/29/18 21:01 Temperature Pulse Rate 72 67 68 Respiratory Rate 18 10 L 13 Blood Pressure 136/60 Pulse Oximetry 97 100 100 05/29/18 22:00 05/29/18 23:00 05/29/18 23:01 Temperature Pulse Rate 70 69 70 Respiratory Rate 11 L 11 L 10 L Blood Pressure 162/72 H 149/65 H Pulse Oximetry 95 94 L 94 L 05/30/18 00:00 05/30/18 00:01 05/30/18 01:00 Temperature 97.6 F Pulse Rate 67 67 68 Respiratory Rate 11 L 11 L 11 L Blood Pressure 132/60 Pulse Oximetry 94 L 94 L 95 05/30/18 01:01 05/30/18 02:00 05/30/18 02:01 Temperature Pulse Rate 68 69 69 Respiratory Rate 11 L 11 L 11 L Blood Pressure 161/69 H 166/72 H Pulse Oximetry 95 95 95 05/30/18 02:42 05/30/18 03:00 05/30/18 03:01 Temperature Pulse Rate 70 68 66 Respiratory Rate 12 9 L 13 Blood Pressure 174/71 H 166/71 H Pulse Oximetry 96 96 96 05/30/18 04:00 05/30/18 04:11 05/30/18 05:00 Temperature 98.1 F Pulse Rate 83 78 79 Respiratory Rate 15 16 11 L Blood Pressure 161/70 H Pulse Oximetry 94 L 97 05/30/18 05:01 05/30/18 06:00 05/30/18 08:00 Temperature Pulse Rate 71 82 Respiratory Rate 16 Blood Pressure 172/71 H Pulse Oximetry 05/30/18 08:01 Temperature Pulse Rate Respiratory Rate Blood Pressure Pulse Oximetry 96 Intake & Output 05/29/18 05/30/18 05/30/18 18:59 06:59 18:59 Intake Total 1635 / 1635 1300 / 1300 Output Total 1100 / 1100 600 / 600 Balance 535 / 535 700 / 700 Weight 100 kg Intake: IV 1435 / 1435 1200 / 1200 Protonix Inj 80 MG In NS Inj 100 / 100 100 ML @ 10 mls/hr IV.CONT CONT [facility] Rx#:[id number] Levophed-Dextrose 4 mg/250 ml 250 / 250 Drip 4 mg In 250 ml @ 2 MCG/MIN 7.5 mls/hr IV.SIG TITRATE PRN Rx#:[id number] Protonix Inj 40 MG In NS Inj 35 35 / 35 ML @ 420 mls/hr IV.SIG BOLUS ONE Rx#:[id number] Zosyn 3.375 GM Premix 50 ML @ 50 / 50 100 / 100 200 mls/hr IV.SIG Q6H [facility] Rx#: [id number] Zosyn 4.5 GM Premix 4.5 gm In 100 / 100 100 ml @ 200 mls/hr IV.SIG Q6H [facility] Rx#:[id number] NS Inj 1,000 ML @ 100 mls/hr IV 1000 / 1000 1000 / 1000 .SIG .Q10H [facility] Rx#:[id number] Oral 100 / 100 Anesthesia Amount 200 / 200 Output: Urine 600 / 600 600 / 600 Urine Amount (Catheter) 500 / 500 Indwelling Urethral Catheter 500 / 500 Other: # Voids 5 4 # Incontinent Voids 6 Date of Last Bowel Movement 05/28/18 05/30/18 # Bowel Movements 0 2 Result Diagrams: 05/30/18 04:15 05/30/18 04:15 Objective Remarks: GENERAL: 68-year-old female sitting up in [facility] bed. On nasal cannula. SKIN: Warm and dry. No rash HEAD: Atraumatic. Normocephalic. EYES: Pupils equal and round. No scleral icterus. No injection or drainage. ENT: No nasal bleeding or discharge. Mucous membranes pink and moist. NECK: Trachea midline. No JVD. CARDIOVASCULAR: Regular rate and rhythm. S1, S2 no S4. 1/6 systolic murmur left sternal border. RESPIRATORY: Coarse breath sounds bilaterally with slight wheeze. No rales. GASTROINTESTINAL: Abdomen mildly distended, tender to palpation primarily in left mid and lower abdomen. Bowel sounds present. No hepatosplenomegaly or mass. : Voiding MUSCULOSKELETAL: Trace to 1+ edema bilateral lower extremities. NEUROLOGICAL: Eyes open, alert and interactive, oriented. Moves all extremities without focal deficit. Assessment and Plan - Problem List (1) Hemorrhagic shock Code(s): R57.8 - Other shock Status: Acute (2) Mesenteric ischemia Code(s): K55.9 - Vascular disorder of intestine, unspecified Status: Acute (3) Gastritis Code(s): K29.70 - Gastritis, unspecified, without bleeding Status: Acute (4) Anticoagulated Code(s): Z79.01 - residential (current) use of anticoagulants Status: Acute (5) Obesity Code(s): E66.9 - Obesity, unspecified Status: Chronic (6) STEPHIE (acute kidney injury) Code(s): N17.9 - Acute kidney failure, unspecified Status: Acute - Assessment and Plan Plan: Plan: Neuro/Psych: Depression/anxiety disorder NOS Peripheral neuropathy Chronic insomnia Acute syncope likely vagal Has been on Xanax/tramadol as needed and trazodone.. Use morphine now as needed for pain. On gabapentin 100 mg 3 times daily for peripheral neuropathy CT brain 05/20 and 05/21 revealed no acute intracranial findings CV: Hemorrhagic shock-resolved Essential hypertension Hyperlipidemia Questionable atrial septal defect on echocardiogram 04/18 Weaned off Levophed, currently hypertensive Discontinue maintenance IV fluids Use Vasotec as needed for systolic blood pressure more than 160 2D echocardiogram time revealed EF 65-30%. LVH. Essentially normal pulmonary arterial pressures. Continue to hold anti-hypertensives including amlodipine 10 mg daily, captopril/ hydrochlorthiazide 25/25 1 tablet daily, carvedilol 25 mg twice daily, hydralazine 100 every 8 hours in light of hemorrhagic shock. Resume as tolerated. Will start back on carvedilol first On atorvastatin 40 mg daily for dyslipidemia. Hold aspirin 81 mg daily in light of GI bleed Resp: COPD History of pulmonary embolism on chronic rivaroxaban Acute respiratory failure (resolved) Extubated 05/21 Incentive spirometer while awake Nasal cannula to maintain saturations greater than equal to 90% Albuterol/ipratropium aerosols every 4 hours with albuterol aerosols every 2 as needed for dyspnea Continue budesonide/formoterol 160/4.52 puffs twice daily Holding Xarelto GI/HEME: Ischemic colitis, sigmoid. Seen on colonoscopy 05/[address] Porter Severe erythematous gastritis, esophagitis on EGD 05/27 GI bleeding Fecal impaction, resolved Disimpacted in the ED. Hypoalbuminemia Elevated lipase of unclear significance Continue Protonix drip. Serial hemoglobin. Transfuse as indicated based on hemodynamics. CT abdomen pelvis 05/27no pneumatosis. There is SMA atherosclerosis without high-grade stenosis. EGD and colonoscopy 05/27 demonstrated severe erythematous gastritis, esophagitis , diverticulitis, sigmoid ischemic colitis. Developed acute GI bleeding with hemorrhagic shock on 05/28 after receiving dose of Xarelto. Xarelto on hold. Administered K Centra and 2 doses of 25 units/kg. Transfused based on hemodynamics to total of 6 units packed red cells which facilitated Dr. Castro would pursue colectomy if needed for mesenteric ischemia, however patient has stabilized and no indication for colectomy at this time Endo: Hyperglycemia Chronic prednisone use - On solumedrol 40 mg IV q8 . Bedside glucose every 4 hours with medium dose insulin sliding scale as indicated. FEN/Renal: Acute kidney injury History of anterior urethral stricture Baseline creatinine around 1.1. She is voiding well and does not need Chirinos at this time CT abdomen/pelvis revealed no hydronephrosis. Negative urine eosinophils. Avoid nephrotoxic medication. ID: Follow-up blood cultures. Already on Zosyn and vancomycin which will cover for translocation for mesenteric ischemia. Could discontinue vancomycin soon if cultures are negative. Access -Right IJ central venous line placed 05/28 and arterial line placed 05/28/2018. Discontinue both today 05/30/2018 Prophylaxis -GI -pantoprazole drip as per above -DVT-SCD/holding pharmacological prophylaxis in light of GI bleed Level 2 Consult hospitalist to assume care in a.m. 05/31/2018 Code Status: Full
[2018-05-30] MEDS: MethylPREDNISolone Sod Succinate Inj 40 MG/ML Vial IV.PUSH SCH ×2 (09:39→22:10)
[2018-05-30] MEDS: Budesonide-Formoterol 160/4.5 MCG 6 GM Inhaler INH SCH ×2 (09:40→22:16)
[2018-05-30] MEDS: Mupirocin 2% Nasal Oint Topical Syringe EACH NARE SCH ×2 (09:40→22:10)
[2018-05-30] MEDS: Gabapentin 100 MG Capsule PO SCH ×3 (09:40→21:08)
[2018-05-30] MEDS: Senna/Docusate Sodium 8.6/50 MG Tablet PO SCH ×2 (09:40→22:11)
[2018-05-30] MEDS: Polyvinyl Alcohol/Povidone PF Opth Drops 0.4 ML Dropperette EACH EYE SCH ×2 (09:40→22:16)
[2018-05-30] MEDS: Vancomycin Inj 1,750 MG in Sodium Chlor 0.9% Inj 500 ML IV.SIG SCH (10:02)
--- NOTE | 2018-05-30 12:08 | P.PNGS ---
Subjective Patient reports: no new complaints (mild abdominal pain, HH slow trend down, off levo) Physical Exam Vital signs: Vital Signs 05/29/18 12:59 05/29/18 13:00 05/29/18 14:00 Temperature Pulse Rate 67 68 71 Respiratory Rate 11 L 12 15 Blood Pressure 151/68 H 153/67 H Pulse Oximetry 99 99 96 05/29/18 14:33 05/29/18 15:00 05/29/18 15:01 Temperature Pulse Rate 74 70 70 Respiratory Rate 16 11 L 16 Blood Pressure 132/61 Pulse Oximetry 98 97 97 05/29/18 16:00 05/29/18 17:00 05/29/18 18:00 Temperature 98.2 F Pulse Rate 78 70 71 Respiratory Rate 23 11 L 11 L Blood Pressure 119/76 111/54 L 127/66 Pulse Oximetry 98 97 99 05/29/18 19:00 05/29/18 20:00 05/29/18 20:01 Temperature 97.8 F Pulse Rate 71 73 68 Respiratory Rate 21 18 10 L Blood Pressure 140/65 170/71 H Pulse Oximetry 99 99 99 05/29/18 20:20 05/29/18 21:00 05/29/18 21:01 Temperature Pulse Rate 72 67 68 Respiratory Rate 18 10 L 13 Blood Pressure 136/60 Pulse Oximetry 97 100 100 05/29/18 22:00 05/29/18 23:00 05/29/18 23:01 Temperature Pulse Rate 70 69 70 Respiratory Rate 11 L 11 L 10 L Blood Pressure 162/72 H 149/65 H Pulse Oximetry 95 94 L 94 L 05/30/18 00:00 05/30/18 00:01 05/30/18 01:00 Temperature 97.6 F Pulse Rate 67 67 68 Respiratory Rate 11 L 11 L 11 L Blood Pressure 132/60 Pulse Oximetry 94 L 94 L 95 05/30/18 01:01 05/30/18 02:00 05/30/18 02:01 Temperature Pulse Rate 68 69 69 Respiratory Rate 11 L 11 L 11 L Blood Pressure 161/69 H 166/72 H Pulse Oximetry 95 95 95 05/30/18 02:42 05/30/18 03:00 05/30/18 03:01 Temperature Pulse Rate 70 68 66 Respiratory Rate 12 9 L 13 Blood Pressure 174/71 H 166/71 H Pulse Oximetry 96 96 96 05/30/18 04:00 05/30/18 04:11 05/30/18 05:00 Temperature 98.1 F Pulse Rate 83 78 79 Respiratory Rate 15 16 11 L Blood Pressure 161/70 H Pulse Oximetry 94 L 97 05/30/18 05:01 05/30/18 06:00 05/30/18 08:00 Temperature Pulse Rate 71 82 Respiratory Rate 16 Blood Pressure 172/71 H Pulse Oximetry 05/30/18 08:01 Temperature Pulse Rate Respiratory Rate Blood Pressure Pulse Oximetry 96 Intake & Output 05/29/18 05/30/18 05/30/18 18:59 06:59 18:59 Intake Total 2152.5 / 2152.5 1300 / 1300 Output Total 1100 / 1100 600 / 600 Balance 1052.5 / 1052.5 700 / 700 Weight 100 kg Intake: IV 1952.5 / 1952.5 1200 / 1200 Protonix Inj 80 MG In NS Inj 100 / 100 100 ML @ 10 mls/hr IV.CONT CONT [facility] Rx#:[id number] Levophed-Dextrose 4 mg/250 ml 250 / 250 Drip 4 mg In 250 ml @ 2 MCG/MIN 7.5 mls/hr IV.SIG TITRATE PRN Rx#:[id number] Protonix Inj 40 MG In NS Inj 35 35 / 35 ML @ 420 mls/hr IV.SIG BOLUS ONE Rx#:[id number] Zosyn 3.375 GM Premix 50 ML @ 50 / 50 100 / 100 200 mls/hr IV.SIG Q6H [facility] Rx#: [id number] Zosyn 4.5 GM Premix 4.5 gm In 100 / 100 100 ml @ 200 mls/hr IV.SIG Q6H [facility] Rx#:[id number] NS Inj 1,000 ML @ 100 mls/hr IV 1000 / 1000 1000 / 1000 .SIG .Q10H [facility] Rx#:[id number] Vancomycin Inj 1,750 MG In NS 517.5 / 517.5 Inj 500 ML @ 250 mls/hr IV.SIG Q24H [facility] Rx#:[id number] Oral 100 / 100 Anesthesia Amount 200 / 200 Output: Urine 600 / 600 600 / 600 Urine Amount (Catheter) 500 / 500 Indwelling Urethral Catheter 500 / 500 Other: # Voids 5 4 # Incontinent Voids 6 Date of Last Bowel Movement 05/28/18 05/30/18 # Bowel Movements 0 2 - Routine Abdominal Exam Present: soft (mild ttp diffuse, mild distension) - Urinary Catheter Management Indwelling Urethral Catheter Cath placed during this visit: yes Reason for continuing: Hourly intake/output Insertion date: 05/20/18 Insertion time: 06:00 Results - Labs 05/30/18 04:15 05/30/18 04:15 Laboratory Results - last 24 hr 05/29/18 05/29/18 05/29/18 12:28 15:33 19:18 WBC RBC Hgb 11.5 L Hct MCV MCH MCHC RDW Plt Count MPV Prelim Diff (Auto) Neut % (Auto) Lymph % (Auto) [place] % (Auto) Eos % (Auto) Baso % (Auto) Neut # (Auto) Lymph # (Auto) [place] # (Auto) Eos # (Auto) Baso # (Auto) WBC Differential Seg Neuts % (Manual) Lymphocytes % (Manual) Monocytes % (Manual) Metamyelocytes % (Man) Abs Neuts (Manual) Differential Comment Platelet Estimate Platelet Morphology RBC Morphology Sodium Potassium Chloride Carbon Dioxide Anion Gap BUN Creatinine Estimated GFR POC Glucose 257 H 231 H Random Glucose Calcium Prot Corrected Calcium Total Bilirubin AST ALT Alkaline Phosphatase Total Protein Albumin 05/29/18 05/30/18 05/30/18 20:21 00:00 04:15 WBC 17.0 H RBC 3.49 L Hgb 10.3 L Hct 30.2 L MCV 86.4 MCH 29.6 MCHC 34.2 RDW 15.6 Plt Count 115 L MPV 8.7 Prelim Diff (Auto) Slide review pending Neut % (Auto) 87.9 H Lymph % (Auto) 6.8 L [place] % (Auto) 5.2 Eos % (Auto) 0.0 Baso % (Auto) 0.1 Neut # (Auto) 14.9 H Lymph # (Auto) 1.2 [place] # (Auto) 0.9 Eos # (Auto) 0.0 Baso # (Auto) 0.0 WBC Differential Manual diff final Seg Neuts % (Manual) 86 H Lymphocytes % (Manual) 9 Monocytes % (Manual) 2 Metamyelocytes % (Man) 3 H Abs Neuts (Manual) 15.1 H Differential Comment . Platelet Estimate Low L Platelet Morphology Normal RBC Morphology Normal Sodium Potassium Chloride Carbon Dioxide Anion Gap BUN Creatinine Estimated GFR POC Glucose 171 H 176 H Random Glucose Calcium Prot Corrected Calcium Total Bilirubin AST ALT Alkaline Phosphatase Total Protein Albumin 05/30/18 05/30/18 05/30/18 04:15 04:17 09:35 WBC RBC Hgb Hct MCV MCH MCHC RDW Plt Count MPV Prelim Diff (Auto) Neut % (Auto) Lymph % (Auto) [place] % (Auto) Eos % (Auto) Baso % (Auto) Neut # (Auto) Lymph # (Auto) [place] # (Auto) Eos # (Auto) Baso # (Auto) WBC Differential Seg Neuts % (Manual) Lymphocytes % (Manual) Monocytes % (Manual) Metamyelocytes % (Man) Abs Neuts (Manual) Differential Comment Platelet Estimate Platelet Morphology RBC Morphology Sodium 146 H Potassium 3.9 Chloride 108 H Carbon Dioxide 30.2 Anion Gap 8 BUN 31 H Creatinine 1.11 H Estimated GFR 49 L POC Glucose 194 H 174 H Random Glucose 187 H Calcium 7.4 L* Prot Corrected Calcium 9.3 Total Bilirubin 0.6 AST 13 L ALT 19 Alkaline Phosphatase 35 L Total Protein 4.0 L D Albumin 1.9 L - Imaging Imaging: ITS Impressions Abdomen X-Ray 05/20/18 02:10 CONCLUSION: Nonspecific, benign abdomen appearance. Abdomen/Pelvis CT 05/20/18 02:10 CONCLUSION: Rectal fecal impaction and likely mild proctitis Head CT 05/21/18 19:41 CONCLUSION: 1. No acute findings. Stable exam since May 20. Chronic white matter ischemic changes. Retention cyst right maxillary sinus. . Abdomen/Pelvis CTA 05/27/18 00:00 CONCLUSION: 1. There is severe atherosclerotic disease of the aorta. Atherosclerotic disease is present within the superior mesenteric artery but no high-grade stenosis or occlusion is visualized on the arterial side of the mesenteric vasculature. Please note that the venous mesenteric structures are not well evaluated on this examination timed for arterial enhancement. Additionally, there are no secondary findings to suggest mesenteric ischemia including no intramural air. 2. Wall thickening of the rectum suggesting a proctitis. 3. New small bilateral pleural effusions and new small volume of free fluid in the abdomen and pelvis. Also, anasarca is new. Chest X-Ray 05/29/18 00:00 CONCLUSION: No change mild atelectasis and small effusions at each lung base. Assessment and Plan - Assessment (1) GI hemorrhage Code(s): K92.2 - Gastrointestinal hemorrhage, unspecified Status: Acute Plan: 68 year old female with GIB; ischemic colitis rectal bag with ree aixa maroon , hh slow trend down but wnl, pt off levo more stable -off levo -cardio diet -WBC up to 27k---recheck better today 17 -Continue to hold OAC -Continue to resuscitate the patient as needed -Will continue non operative treatment unless patient clinically changes- appears improving overall (2) Abdominal pain, acute Code(s): R10.9 - Unspecified abdominal pain Status: Acute (3) Acute blood loss anemia Code(s): D62 - Acute posthemorrhagic anemia Status: Acute (4) Acute hypotension Code(s): I95.9 - Hypotension, unspecified Status: Acute
[2018-05-30] MEDS: ALPRAZolam 0.25 MG Tablet PO PRN (17:39)
[2018-05-30] MEDS: Lactic Acid (Ammonium Lactate) 12% Lotion 225 GM Bottle TOPICAL SCH (21:06)
[2018-05-30] MEDS: Melatonin 5 MG Tablet PO SCH (22:10)
[2018-05-30] MEDS: Pantoprazole Inj 80 MG in Sodium Chlor 0.9% Inj 100 ML IV.CONT SCH (22:12)
[2018-05-31] MEDS: Oral Hygiene Kit OROPHARYNG SCH ×4 (00:12→20:44)
[2018-05-31] MEDS: Insulin NovoLOG Aspart Correctional Sugar Inj SQ SCH ×7 (00:12→21:21)
[2018-05-31] MEDS: Morphine Inj 4 MG/ML Vial IV.PUSH PRN ×2 (00:13→20:35)
[2018-05-31] MEDS: ALPRAZolam 0.25 MG Tablet PO PRN (02:05)
[2018-05-31] MEDS: Piperacil/Tazo 3.375 GM Premix 50 ML IV.SIG SCH ×4 (02:05→21:23)
[2018-05-31 04:43] LABS: Hematocrit 26.9 % (35.0-46.0); Hemoglobin 9.1 gm/dL (11.6-15.3); Mean Corpuscular HGB Conc 33.8 % (32.0-36.0); Mean Corpuscular Hemoglobin 29.7 pg (27.0-34.0); Mean Corpuscular Volume 87.8 fL (80.0-100.0); Mean Platelet Volume 8.7 fL (7.0-11.0); Platelet Count 114 th/mm3 (150-450); Red Blood Count 3.07 mil/mm3 (4.00-5.30); Red Cell Distribution Width 15.4 % (11.6-17.2); White Blood Count 13.7 th/mm3 (4.0-11.0)
[2018-05-31] MEDS: Sod Chloride 0.9% Inj 1,000 ML IV.SIG SCH (05:16)
[2018-05-31] MEDS: Labetalol HCl Inj 100 MG/20 ML Vial IV.PUSH PRN (05:40)
--- NOTE | 2018-05-31 07:59 | P.PNIM ---
Subjective Interval history: f/u; GI bleed/COPD exacerbation in no acute distress. however with cough and bilateral wheezing. has mild generalized abdominal pain with blood-tinged stools but no active GI bleed. afebrile. d/w the RN. Physical Exam Vital signs: Vital Signs 05/30/18 08:00 05/30/18 08:01 05/30/18 10:00 Temperature 97.9 F Pulse Rate 82 81 Respiratory Rate 20 Blood Pressure 159/70 H Pulse Oximetry 94 L 96 05/30/18 12:00 05/30/18 14:00 05/30/18 15:05 Temperature 98.1 F Pulse Rate 82 79 76 Respiratory Rate 16 16 Blood Pressure 157/64 H Pulse Oximetry 96 05/30/18 16:00 05/30/18 18:00 05/30/18 20:00 Temperature 97.7 F 97.9 F Pulse Rate 82 84 96 H Respiratory Rate 20 24 Blood Pressure 147/66 H 123/73 Pulse Oximetry 96 100 05/30/18 21:26 05/30/18 22:00 05/31/18 00:00 Temperature 97.9 F Pulse Rate 84 82 85 Respiratory Rate 18 20 Blood Pressure 145/47 H Pulse Oximetry 95 100 05/31/18 02:00 05/31/18 04:00 05/31/18 06:00 Temperature 98.0 F Pulse Rate 79 76 72 Respiratory Rate 16 Blood Pressure 91/72 L Pulse Oximetry 96 Intake & Output 05/30/18 05/31/18 05/31/18 18:59 06:59 18:59 Intake Total 1650 / 1650 1667.5 / 1667.5 Output Total 900 / 900 1300 / 1300 Balance 750 / 750 367.5 / 367.5 Weight 100.9 kg Intake: IV 1050 / 1050 1667.5 / 1667.5 Zosyn 3.375 GM Premix 50 ML @ 50 / 50 150 / 150 200 mls/hr IV.SIG Q6H [facility] Rx#: [id number] NS Inj 1,000 ML @ 100 mls/hr IV 1000 / 1000 1000 / 1000 .SIG .Q10H [facility] Rx#:[id number] Vancomycin Inj 1,750 MG In NS 517.5 / 517.5 Inj 500 ML @ 250 mls/hr IV.SIG Q24H [facility] Rx#:[id number] Oral 600 / 600 Output: Urine 600 / 600 Stool 300 / 300 300 / 300 Urine Amount (Catheter) 1000 / 1000 Indwelling Urethral Catheter 1000 / 1000 Other: Date of Last Bowel Movement 05/30/18 05/30/18 # Bowel Movements 2 - Constitutional mild distress - Routine Respiratory Exam Present: prolonged expiratory phase, wheezes - Routine Cardiovascular Exam Present: RRR - Routine Abdominal Exam Present: soft, tenderness (mild generalized tenderness.) - Routine Extremities Exam Comments: bilateral pedal edema. - Routine Neurological Exam Present: alert, oriented X3 - Urinary Catheter Management Indwelling Urethral Catheter Cath placed during this visit: yes Reason for continuing: Hourly intake/output Insertion date: 05/20/18 Insertion time: 06:00 Results - Labs CBC & Chem 7: 05/31/18 03:30 05/31/18 03:30 Laboratory Results - last 24 hr 05/28/18 05/29/18 05/30/18 20:32 00:42 09:35 WBC RBC Hgb Hct MCV MCH MCHC RDW Plt Count MPV Creatinine Estimated GFR POC Glucose 174 H MTS Gel Crossmatch See Detail See Detail 05/30/18 05/30/18 05/31/18 17:45 18:22 01:58 WBC RBC Hgb 8.7 L Hct MCV MCH MCHC RDW Plt Count MPV Creatinine Estimated GFR POC Glucose 181 H 214 H MTS Gel Crossmatch 05/31/18 05/31/18 03:30 03:30 WBC 13.7 H RBC 3.07 L Hgb 9.1 L Hct 26.9 L MCV 87.8 MCH 29.7 MCHC 33.8 RDW 15.4 Plt Count 114 L MPV 8.7 Creatinine 0.92 Estimated GFR 61 L POC Glucose MTS Gel Crossmatch Microbiology 05/29/18 04:40 Blood - Peripheral Aerobic Blood Culture - Preliminary No growth in 1 day 05/29/18 04:40 Blood - Peripheral Anaerobic Blood Culture - Preliminary No growth in 1 day 05/29/18 04:40 Blood - Peripheral Aerobic Blood Culture - Preliminary No growth in 1 day 05/29/18 04:40 Blood - Peripheral Anaerobic Blood Culture - Preliminary No growth in 1 day - Procedures central line placement. Assessment and Plan - Plan Hemorrhagic shock-resolved Essential hypertension Hyperlipidemia Questionable atrial septal defect on echocardiogram 04/18 Weaned off Levophed, BP currently fairly stable. Use Vasotec as needed for systolic blood pressure more than 160 2D echocardiogram time revealed EF 65-70%. LVH. Essentially normal pulmonary arterial pressures. Continue to hold anti-hypertensives including amlodipine 10 mg daily, captopril/ hydrochlorthiazide 25/25 1 tablet daily, carvedilol 25 mg twice daily, hydralazine 100 every 8 hours in light of hemorrhagic shock. Resume as tolerated. Will start back on carvedilol first On atorvastatin 40 mg daily for dyslipidemia. Hold aspirin 81 mg daily in light of GI bleed Depression/anxiety disorder NOS Peripheral neuropathy Chronic insomnia Acute syncope likely vagal Has been on Xanax/tramadol as needed and trazodone.. Use morphine now as needed for pain. On gabapentin 100 mg 3 times daily for peripheral neuropathy CT brain 05/20 and 05/21 revealed no acute intracranial findings COPD exacerbation History of pulmonary embolism on chronic rivaroxaban Acute respiratory failure (resolved) Extubated 05/21 Incentive spirometer while awake Nasal cannula to maintain saturations greater than equal to 90% Albuterol/ipratropium aerosols every 4 hours with albuterol aerosols every 2 as needed for dyspnea Continue budesonide/formoterol 160/4.52 puffs twice daily continue IV Solumedrol CXR today Holding Xarelto because of GI bleed pulmonary following. Ischemic colitis, sigmoid. Seen on colonoscopy 05/[address] Porter Severe erythematous gastritis, esophagitis on EGD 05/27 GI bleeding Fecal impaction, resolved Disimpacted in the ED. Hypoalbuminemia Elevated lipase of unclear significance Continue Protonix drip. Serial hemoglobin. Transfuse as indicated based on hemodynamics. continue IV Zosyn- will dc IV Vanco tomorrow if blood cultures remain negative. CT abdomen pelvis 05/27no pneumatosis. There is SMA atherosclerosis without high-grade stenosis. EGD and colonoscopy 05/27 demonstrated severe erythematous gastritis, esophagitis , diverticulitis, sigmoid ischemic colitis. Developed acute GI bleeding with hemorrhagic shock on 05/28 after receiving dose of Xarelto. Xarelto on hold. Administered K Centra and 2 doses of 25 units/kg. Transfused based on hemodynamics to total of 6 units packed red cells which facilitated Dr. Castro would pursue colectomy if needed for mesenteric ischemia, however patient has stabilized and no indication for colectomy at this time surgery following. Hyperglycemia Chronic prednisone use - On solumedrol 40 mg IV. Bedside glucose every 4 hours with medium dose insulin sliding scale as indicated. Acute kidney injury History of anterior urethral stricture Baseline creatinine around 1.1. CT abdomen/pelvis revealed no hydronephrosis. Negative urine eosinophils. Avoid nephrotoxic medication. Access -Right IJ central venous line placed 05/28 and arterial line placed 05/28/2018. Discontinue both today 05/30/2018 Prophylaxis -GI -pantoprazole drip as per above -DVT-SCD/holding pharmacological prophylaxis in light of GI bleed Discharge Planning: will transfer to floor within the next 24-48 hrs if stable. dc planning; rehab.
--- NOTE | 2018-05-31 08:20 | XR ---
EXAM DATE: 05/31/2018 12:00 AM EDT AGE/SEX: 68 years / Female INDICATIONS: COPD. CLINICAL DATA: This is the patient's subsequent encounter. Patient reports that signs and symptoms h ave been present for 1 day and indicates a pain score of 0/10. MEDICAL/SURGICAL HISTORY: . Chronic obstructive pulmonary disease. Hypertension. Pulmonary embo li. . Cholecystectomy. COMPARISON: [facility] [place], CHEST 1V SINGLE AP, 05/29/2018. . FINDINGS: Portable AP view of the chest demonstrates a normal-sized cardiac silhouette. There are small bibasil ar pleural-parenchymal opacities, stable from the prior study. No pneumothorax is identified. The bon es and soft tissues demonstrate no acute abnormality. EKG lines overlie the patient. CONCLUSION: Stable chest x-ray with small bilateral pleural effusions with associated volume loss and/or airspace consolidation. Electronically signed by: Brando Vernon MD 05/31/2018 8:18 AM EDT
[2018-05-31] MEDS ORDERED: Pharmacy Ordered Lab Info OTHER ONE (09:45)
[2018-05-31] MEDS: traZODone 50 MG Tablet PO SCH (10:56)
[2018-05-31] MEDS: Gabapentin 100 MG Capsule PO SCH ×3 (10:56→20:44)
[2018-05-31] MEDS: ALPRAZolam 0.5 MG Tablet PO PRN ×2 (10:59→21:21)
--- NOTE | 2018-05-31 12:50 | P.PNGS ---
Subjective Patient reports: feels better, still having pain, pain is less, tolerating liquids well, bowel movement, afebrile Physical Exam Vital signs: Vital Signs 05/30/18 14:00 05/30/18 15:05 05/30/18 16:00 Temperature 97.7 F Pulse Rate 79 76 82 Respiratory Rate 16 20 Blood Pressure 147/66 H Pulse Oximetry 96 05/30/18 18:00 05/30/18 20:00 05/30/18 21:26 Temperature 97.9 F Pulse Rate 84 96 H 84 Respiratory Rate 24 18 Blood Pressure 123/73 Pulse Oximetry 100 95 05/30/18 22:00 05/31/18 00:00 05/31/18 02:00 Temperature 97.9 F Pulse Rate 82 85 79 Respiratory Rate 20 Blood Pressure 145/47 H Pulse Oximetry 100 05/31/18 04:00 05/31/18 06:00 05/31/18 07:00 Temperature 98.0 F Pulse Rate 76 72 Respiratory Rate 16 Blood Pressure 91/72 L Pulse Oximetry 96 96 Intake & Output 05/30/18 05/31/18 05/31/18 18:59 06:59 18:59 Intake Total 1650 / 1650 1667.5 / 1667.5 Output Total 900 / 900 1300 / 1300 Balance 750 / 750 367.5 / 367.5 Weight 100.9 kg Intake: IV 1050 / 1050 1667.5 / 1667.5 Zosyn 3.375 GM Premix 50 ML @ 50 / 50 150 / 150 200 mls/hr IV.SIG Q6H [facility] Rx#: [id number] NS Inj 1,000 ML @ 100 mls/hr IV 1000 / 1000 1000 / 1000 .SIG .Q10H [facility] Rx#:[id number] Vancomycin Inj 1,750 MG In NS 517.5 / 517.5 Inj 500 ML @ 250 mls/hr IV.SIG Q24H [facility] Rx#:[id number] Oral 600 / 600 Output: Urine 600 / 600 Stool 300 / 300 300 / 300 Urine Amount (Catheter) 1000 / 1000 Indwelling Urethral Catheter 1000 / 1000 Other: Date of Last Bowel Movement 05/30/18 05/30/18 # Bowel Movements 2 - Routine Abdominal Exam Present: soft, normoactive bowel sounds - Urinary Catheter Management Indwelling Urethral Catheter Cath placed during this visit: yes Reason for continuing: Hourly intake/output Insertion date: 05/20/18 Insertion time: 06:00 Results - Labs 05/31/18 03:30 05/31/18 03:30 Laboratory Results - last 24 hr 05/28/18 05/29/18 05/30/18 20:32 00:42 17:45 WBC RBC Hgb 8.7 L Hct MCV MCH MCHC RDW Plt Count MPV Creatinine Estimated GFR POC Glucose MTS Gel Crossmatch See Detail See Detail 05/30/18 05/31/18 05/31/18 18:22 01:58 03:30 WBC RBC Hgb Hct MCV MCH MCHC RDW Plt Count MPV Creatinine 0.92 Estimated GFR 61 L POC Glucose 181 H 214 H MTS Gel Crossmatch 05/31/18 05/31/18 03:30 08:59 WBC 13.7 H RBC 3.07 L Hgb 9.1 L Hct 26.9 L MCV 87.8 MCH 29.7 MCHC 33.8 RDW 15.4 Plt Count 114 L MPV 8.7 Creatinine Estimated GFR POC Glucose 212 H MTS Gel Crossmatch - Imaging Imaging: ITS Impressions Abdomen X-Ray 05/20/18 02:10 CONCLUSION: Nonspecific, benign abdomen appearance. Abdomen/Pelvis CT 05/20/18 02:10 CONCLUSION: Rectal fecal impaction and likely mild proctitis Head CT 05/21/18 19:41 CONCLUSION: 1. No acute findings. Stable exam since May 20. Chronic white matter ischemic changes. Retention cyst right maxillary sinus. . Abdomen/Pelvis CTA 05/27/18 00:00 CONCLUSION: 1. There is severe atherosclerotic disease of the aorta. Atherosclerotic disease is present within the superior mesenteric artery but no high-grade stenosis or occlusion is visualized on the arterial side of the mesenteric vasculature. Please note that the venous mesenteric structures are not well evaluated on this examination timed for arterial enhancement. Additionally, there are no secondary findings to suggest mesenteric ischemia including no intramural air. 2. Wall thickening of the rectum suggesting a proctitis. 3. New small bilateral pleural effusions and new small volume of free fluid in the abdomen and pelvis. Also, anasarca is new. Chest X-Ray 05/31/18 00:00 CONCLUSION: Stable chest x-ray with small bilateral pleural effusions with associated volume loss and/or airspace consolidation. Assessment and Plan - Assessment (1) GI hemorrhage Code(s): K92.2 - Gastrointestinal hemorrhage, unspecified Status: Acute Plan: 68 year old female with GIB; ischemic colitis rectal bag with melana dark maroon , hh slow trend down but wnl, pt off levo more stable -off levo -cardio diet -WBC up to 27k---recheck better today 17 -Continue to hold OAC -Continue to resuscitate the patient as needed -Will continue non operative treatment unless patient clinically changes- appears improving overall (2) Abdominal pain, acute Code(s): R10.9 - Unspecified abdominal pain Status: Acute (3) Acute blood loss anemia Code(s): D62 - Acute posthemorrhagic anemia Status: Acute (4) Acute hypotension Code(s): I95.9 - Hypotension, unspecified Status: Acute - Plan stable no active bleeding, labs stable continue medical management
[2018-05-31] MEDS ORDERED: Propofol Inj 500 MG/50 ML Vial ONE (14:14)
[2018-05-31] MEDS: Pantoprazole Inj 80 MG in Sodium Chlor 0.9% Inj 100 ML IV.CONT SCH ×2 (20:35→21:00)
[2018-05-31] MEDS: Chlorhexidine 0.12% Oral Kit 15 ML UDC OROPHARYNG SCH ×2 (20:37→21:21)
[2018-05-31] MEDS: Mupirocin 2% Nasal Oint Topical Syringe EACH NARE SCH ×2 (20:37→21:21)
[2018-05-31] MEDS: Senna/Docusate Sodium 8.6/50 MG Tablet PO SCH ×2 (20:38→21:22)
[2018-05-31] MEDS: MethylPREDNISolone Sod Succinate Inj 40 MG/ML Vial IV.PUSH SCH ×2 (20:38→21:21)
[2018-05-31] MEDS: Lactic Acid (Ammonium Lactate) 12% Lotion 225 GM Bottle TOPICAL SCH (20:38)
[2018-05-31] MEDS: Polyvinyl Alcohol/Povidone PF Opth Drops 0.4 ML Dropperette EACH EYE SCH ×2 (20:38→21:22)
[2018-05-31] MEDS: Budesonide-Formoterol 160/4.5 MCG 6 GM Inhaler INH SCH ×2 (20:38→21:23)
[2018-05-31] MEDS: Vancomycin Inj 1,500 MG in Sodium Chlor 0.9% Inj 500 ML IV.SIG SCH (20:42)
[2018-05-31] MEDS: Melatonin 5 MG Tablet PO SCH (21:21)
[2018-05-31] MEDS: Carvedilol 12.5 MG Tablet PO SCH (21:21)
[2018-06-01] MEDS: Insulin NovoLOG Aspart Correctional Sugar Inj SQ SCH ×6 (01:21→21:17)
[2018-06-01] MEDS: Oral Hygiene Kit OROPHARYNG SCH ×4 (01:21→16:55)
[2018-06-01] MEDS: Morphine Inj 4 MG/ML Vial IV.PUSH PRN ×4 (01:32→20:27)
[2018-06-01] MEDS: Piperacil/Tazo 3.375 GM Premix 50 ML IV.SIG SCH ×4 (03:30→20:35)
[2018-06-01] MEDS: Pantoprazole Inj 80 MG in Sodium Chlor 0.9% Inj 100 ML IV.CONT SCH ×2 (06:39→16:54)
[2018-06-01 06:58] LABS: Baso % (Auto) 0.1 % (0.0-2.0); Eos % (Auto) 0.1 % (0.0-4.0); Hematocrit 27.7 % (35.0-46.0); Hemoglobin 9.4 gm/dL (11.6-15.3); Lymph # (Auto) 0.5 th/mm3 (1.0-4.8); Mean Corpuscular HGB Conc 33.9 % (32.0-36.0); Mean Corpuscular Hemoglobin 30.1 pg (27.0-34.0); Mean Platelet Volume 8.9 fL (7.0-11.0); Mono # (Auto) 0.2 th/mm3 (0.0-0.9); Mono % (Auto) 2.4 % (0.0-8.0); Neut # (Auto) 9.1 th/mm3 (1.8-7.7); Neut % (Auto) 92.4 % (16.0-70.0); Platelet Count 132 th/mm3 (150-450); Red Blood Count 3.12 mil/mm3 (4.00-5.30); Red Cell Distribution Width 15.3 % (11.6-17.2); White Blood Count 9.9 th/mm3 (4.0-11.0)
[2018-06-01 07:17] LABS: Carbon Dioxide 28.6 meq/L (21.0-32.0); Potassium 4.2 meq/L (3.5-5.1)
[2018-06-01] MEDS: Senna/Docusate Sodium 8.6/50 MG Tablet PO SCH ×2 (09:21→20:19)
[2018-06-01] MEDS: Mupirocin 2% Nasal Oint Topical Syringe EACH NARE SCH ×2 (09:21→20:20)
[2018-06-01] MEDS: Gabapentin 100 MG Capsule PO SCH ×3 (09:21→18:24)
[2018-06-01] MEDS: traZODone 50 MG Tablet PO SCH (09:21)
[2018-06-01] MEDS: Carvedilol 12.5 MG Tablet PO SCH ×2 (09:21→20:19)
[2018-06-01] MEDS: Chlorhexidine 0.12% Oral Kit 15 ML UDC OROPHARYNG SCH ×2 (09:22→20:20)
[2018-06-01] MEDS: Lactic Acid (Ammonium Lactate) 12% Lotion 225 GM Bottle TOPICAL SCH (09:23)
[2018-06-01] MEDS: Budesonide-Formoterol 160/4.5 MCG 6 GM Inhaler INH SCH ×2 (09:23→20:21)
[2018-06-01] MEDS: MethylPREDNISolone Sod Succinate Inj 40 MG/ML Vial IV.PUSH SCH ×2 (10:00→20:21)
[2018-06-01] MEDS: ALPRAZolam 0.5 MG Tablet PO PRN (10:00)
[2018-06-01] MEDS: Polyvinyl Alcohol/Povidone PF Opth Drops 0.4 ML Dropperette EACH EYE SCH ×2 (10:03→20:36)
--- NOTE | 2018-06-01 13:04 | P.PN ---
Subjective Interval history: Alert and On O2 2 L. No active bleeding. Hgb >9.0 Physical Exam Vital signs: Vital Signs 05/31/18 14:43 05/31/18 16:00 05/31/18 20:00 Temperature 98.2 F 98 F Pulse Rate 69 73 75 Respiratory Rate 18 16 13 Blood Pressure 137/63 139/62 Pulse Oximetry 94 L 96 05/31/18 20:42 05/31/18 22:00 06/01/18 00:00 Temperature 98.4 F Pulse Rate 71 77 69 Respiratory Rate 18 17 Blood Pressure 124/58 L Pulse Oximetry 96 93 L 06/01/18 01:34 06/01/18 02:00 06/01/18 04:00 Temperature Pulse Rate 66 68 Respiratory Rate 18 15 Blood Pressure 155/68 H Pulse Oximetry 95 06/01/18 05:23 06/01/18 06:00 06/01/18 08:00 Temperature Pulse Rate 73 65 Respiratory Rate 18 Blood Pressure Pulse Oximetry 06/01/18 09:14 06/01/18 10:00 06/01/18 10:03 Temperature Pulse Rate 73 73 Respiratory Rate 21 8 L Blood Pressure Pulse Oximetry 98 06/01/18 11:56 Temperature Pulse Rate 63 Respiratory Rate 18 Blood Pressure Pulse Oximetry Intake & Output 05/31/18 06/01/18 06/01/18 18:59 06:59 18:59 Intake Total 600 / 600 800 / 800 Output Total 900 / 900 1200 / 1200 Balance -300 / -300 -400 / -400 Weight 99.3 kg Intake: IV 100 / 100 400 / 400 Protonix Inj 80 MG In NS Inj 100 / 100 200 / 200 100 ML @ 10 mls/hr IV.CONT Q10H ANNE Rx#:[id number] Zosyn 3.375 GM Premix 50 ML @ 200 / 200 200 mls/hr IV.SIG Q6H ANNE Rx#: [id number] Oral 500 / 500 400 / 400 Output: Urine 900 / 900 Urine Amount (Catheter) 1200 / 1200 Indwelling Urethral Catheter 1200 / 1200 Other: Date of Last Bowel Movement 05/30/18 05/30/18 05/30/18 # Bowel Movements 2 Narrative: Alert and awake GENERAL: Elderly W/F pale alert SKIN: Warm and dry. HEAD: Normocephalic. EYES: No scleral icterus. No injection or drainage. NECK: Supple, trachea midline. No JVD or lymphadenopathy. CARDIOVASCULAR: Regular rate and rhythm without murmurs, gallops, or rubs. RESPIRATORY: Breath sounds equal bilaterally. No wheeze. No accessory muscle use. GASTROINTESTINAL: Abdomen soft, non-tender, nondistended. MUSCULOSKELETAL: No cyanosis, but has 1 + edema. BACK: Nontender without obvious deformity. No CVA tenderness. - Urinary Catheter Management Indwelling Urethral Catheter Cath placed during this visit: yes Reason for continuing: Hourly intake/output Insertion date: 05/20/18 Insertion time: 06:00 Results - Labs CBC & Chem 7: 06/01/18 04:47 06/01/18 04:47 Laboratory Results - last 24 hr 05/31/18 05/31/18 05/31/18 13:12 17:05 21:19 WBC RBC Hgb Hct MCV MCH MCHC RDW Plt Count MPV Prelim Diff (Auto) Neut % (Auto) Lymph % (Auto) [place] % (Auto) Eos % (Auto) Baso % (Auto) Neut # (Auto) Lymph # (Auto) [place] # (Auto) Eos # (Auto) Baso # (Auto) WBC Differential Diff Scan Differential Comment Sodium Potassium Chloride Carbon Dioxide Anion Gap BUN Creatinine Estimated GFR POC Glucose 156 H 106 156 H Random Glucose Calcium 06/01/18 06/01/18 06/01/18 04:46 04:47 04:47 WBC 9.9 RBC 3.12 L Hgb 9.4 L Hct 27.7 L MCV 89.0 MCH 30.1 MCHC 33.9 RDW 15.3 Plt Count 132 L MPV 8.9 Prelim Diff (Auto) Slide review pending Neut % (Auto) 92.4 H Lymph % (Auto) 5.0 L [place] % (Auto) 2.4 Eos % (Auto) 0.1 Baso % (Auto) 0.1 Neut # (Auto) 9.1 H Lymph # (Auto) 0.5 L [place] # (Auto) 0.2 Eos # (Auto) 0.0 Baso # (Auto) 0.0 WBC Differential . Diff Scan Auto diff confirmed Differential Comment . Sodium 143 Potassium 4.2 Chloride 106 Carbon Dioxide 28.6 Anion Gap 8 BUN 15 Creatinine 0.73 Estimated GFR 79 L POC Glucose 299 H Random Glucose 280 H Calcium 8.0 L 06/01/18 06/01/18 09:17 12:32 WBC RBC Hgb Hct MCV MCH MCHC RDW Plt Count MPV Prelim Diff (Auto) Neut % (Auto) Lymph % (Auto) [place] % (Auto) Eos % (Auto) Baso % (Auto) Neut # (Auto) Lymph # (Auto) [place] # (Auto) Eos # (Auto) Baso # (Auto) WBC Differential Diff Scan Differential Comment Sodium Potassium Chloride Carbon Dioxide Anion Gap BUN Creatinine Estimated GFR POC Glucose 225 H 211 H Random Glucose Calcium Microbiology 05/29/18 04:40 Blood - Peripheral Aerobic Blood Culture - Preliminary No growth in 3 days 05/29/18 04:40 Blood - Peripheral Anaerobic Blood Culture - Preliminary No growth in 3 days 05/29/18 04:40 Blood - Peripheral Aerobic Blood Culture - Preliminary No growth in 3 days 05/29/18 04:40 Blood - Peripheral Anaerobic Blood Culture - Preliminary No growth in 3 days - Procedures central line placement. Assessment and Plan - Assessment (1) GI bleed requiring more than 4 units of blood in 24 hours, ICU, or surgery Code(s): K92.2 - Gastrointestinal hemorrhage, unspecified Status: Acute (2) Anemia Code(s): D64.9 - Anemia, unspecified Status: Acute (3) Shock Code(s): R57.9 - Shock, unspecified Status: Acute (4) COPD (chronic obstructive pulmonary disease) Code(s): J44.9 - Chronic obstructive pulmonary disease, unspecified Status: Chronic (5) Major depression, recurrent Code(s): F33.9 - Major depressive disorder, recurrent, unspecified Status: Acute (6) Sepsis Code(s): A41.9 - Sepsis, unspecified organism Status: Acute (7) Atelectasis Code(s): J98.11 - Atelectasis Status: Acute - Plan 1. Continue O2 at 2 L.and wean to RA 2. CBC,BMP 3. Duonebs qid prn. 4. D/C solumedrol 5. IS q3h bedside 6. Transfer to tele (4) COPD (chronic obstructive pulmonary disease) Qualifiers: COPD type: unspecified COPD Qualified Code(s): J44.9 - Chronic obstructive pulmonary disease, unspecified
[2018-06-01] MEDS: Vancomycin Inj 1,500 MG in Sodium Chlor 0.9% Inj 500 ML IV.SIG SCH (13:23)
--- NOTE | 2018-06-01 18:24 | P.PNIM ---
Subjective Interval history: Patient is tolerating her p.o. diet. She states that she has a good appetite. She does not have any other complaints. Physical Exam Vital signs: Vital Signs 05/31/18 20:00 05/31/18 20:42 05/31/18 22:00 Temperature 98 F Pulse Rate 75 71 77 Respiratory Rate 13 18 Blood Pressure 139/62 Pulse Oximetry 96 96 06/01/18 00:00 06/01/18 01:34 06/01/18 02:00 Temperature 98.4 F Pulse Rate 69 66 Respiratory Rate 17 18 Blood Pressure 124/58 L Pulse Oximetry 93 L 06/01/18 04:00 06/01/18 05:23 06/01/18 06:00 Temperature Pulse Rate 68 73 Respiratory Rate 15 18 Blood Pressure 155/68 H Pulse Oximetry 95 06/01/18 08:00 06/01/18 09:14 06/01/18 10:00 Temperature 97.8 F Pulse Rate 65 73 73 Respiratory Rate 18 21 Blood Pressure 157/70 H Pulse Oximetry 99 98 06/01/18 10:03 06/01/18 11:56 06/01/18 12:00 Temperature 98.3 F Pulse Rate 63 56 L Respiratory Rate 8 L 18 15 Blood Pressure 143/69 H Pulse Oximetry 100 06/01/18 14:00 06/01/18 15:36 06/01/18 16:00 Temperature 98 F Pulse Rate 69 60 64 Respiratory Rate 15 16 Blood Pressure 154/69 H Pulse Oximetry 97 Intake & Output 05/31/18 06/01/18 06/01/18 18:59 06:59 18:59 Intake Total 600 / 600 1315 / 1315 150 / 150 Output Total 900 / 900 1200 / 1200 Balance -300 / -300 115 / 115 150 / 150 Weight 99.3 kg Intake: IV 100 / 100 915 / 915 150 / 150 Protonix Inj 80 MG In NS Inj 100 / 100 200 / 200 100 / 100 100 ML @ 10 mls/hr IV.CONT Q10H ANNE Rx#:[id number] Zosyn 3.375 GM Premix 50 ML @ 200 / 200 50 / 50 200 mls/hr IV.SIG Q6H ANNE Rx#: [id number] Vancomycin Inj 1,500 MG In NS 515 / 515 Inj 500 ML @ 250 mls/hr IV.SIG Q18H ANNE Rx#:[id number] Oral 500 / 500 400 / 400 Output: Urine 900 / 900 Urine Amount (Catheter) 1200 / 1200 Indwelling Urethral Catheter 1200 / 1200 Other: Date of Last Bowel Movement 05/30/18 05/30/18 05/30/18 # Bowel Movements 2 Narrative: General patient in no acute distress HEENT extraocular movements are intact, clear oropharyngeal mucosa Cardiovascular S1-S2 audible Respiratory clear to auscultation bilaterally Abdomen soft, nontender, nondistended, normal bowel sounds Extremities no edema 2+ distal pulses in bilateral upper and lower extremities Neuro patient moves all 4 extremities, sensation is intact bilaterally - Urinary Catheter Management Indwelling Urethral Catheter Cath placed during this visit: yes Reason for continuing: Hourly intake/output Insertion date: 05/20/18 Insertion time: 06:00 Results - Labs CBC & Chem 7: 06/01/18 04:47 06/01/18 04:47 Laboratory Results - last 24 hr 05/31/18 06/01/18 06/01/18 21:19 04:46 04:47 WBC 9.9 RBC 3.12 L Hgb 9.4 L Hct 27.7 L MCV 89.0 MCH 30.1 MCHC 33.9 RDW 15.3 Plt Count 132 L MPV 8.9 Prelim Diff (Auto) Slide review pending Neut % (Auto) 92.4 H Lymph % (Auto) 5.0 L [place] % (Auto) 2.4 Eos % (Auto) 0.1 Baso % (Auto) 0.1 Neut # (Auto) 9.1 H Lymph # (Auto) 0.5 L [place] # (Auto) 0.2 Eos # (Auto) 0.0 Baso # (Auto) 0.0 WBC Differential . Diff Scan Auto diff confirmed Differential Comment . Sodium Potassium Chloride Carbon Dioxide Anion Gap BUN Creatinine Estimated GFR POC Glucose 156 H 299 H Random Glucose Calcium 06/01/18 06/01/18 06/01/18 04:47 09:17 12:32 WBC RBC Hgb Hct MCV MCH MCHC RDW Plt Count MPV Prelim Diff (Auto) Neut % (Auto) Lymph % (Auto) [place] % (Auto) Eos % (Auto) Baso % (Auto) Neut # (Auto) Lymph # (Auto) [place] # (Auto) Eos # (Auto) Baso # (Auto) WBC Differential Diff Scan Differential Comment Sodium 143 Potassium 4.2 Chloride 106 Carbon Dioxide 28.6 Anion Gap 8 BUN 15 Creatinine 0.73 Estimated GFR 79 L POC Glucose 225 H 211 H Random Glucose 280 H Calcium 8.0 L 06/01/18 18:18 WBC RBC Hgb Hct MCV MCH MCHC RDW Plt Count MPV Prelim Diff (Auto) Neut % (Auto) Lymph % (Auto) [place] % (Auto) Eos % (Auto) Baso % (Auto) Neut # (Auto) Lymph # (Auto) [place] # (Auto) Eos # (Auto) Baso # (Auto) WBC Differential Diff Scan Differential Comment Sodium Potassium Chloride Carbon Dioxide Anion Gap BUN Creatinine Estimated GFR POC Glucose 299 H Random Glucose Calcium Microbiology 05/29/18 04:40 Blood - Peripheral Aerobic Blood Culture - Preliminary No growth in 3 days 05/29/18 04:40 Blood - Peripheral Anaerobic Blood Culture - Preliminary No growth in 3 days 05/29/18 04:40 Blood - Peripheral Aerobic Blood Culture - Preliminary No growth in 3 days 05/29/18 04:40 Blood - Peripheral Anaerobic Blood Culture - Preliminary No growth in 3 days - Procedures central line placement. Assessment and Plan - Plan This patient is a 68-year-old female from a alf facility. She has a history of hypertension dyslipidemia and pulmonary embolus and was on Xarelto. She was brought into our emergency department after she was found to have systolic blood pressure in the 60s and was having dark colored stools. 1. Hemorrhagic shock secondary to GI bleed resolved The patient is currently off of levophed. Blood pressure is stable. EGD and colonoscopy were done which showed severe erythematous gastritis as well as findings consistent with ischemic colitis Continue Protonix drip. Surgery co-following, recommends non-operative management at this point. Will continue to follow recommendations from GI and surgery. Aspirin has been held, Xarelto has also been held due to the GI bleed. 2. Ischemic colitis Continue IV antibiotics. Surgery is recommending nonoperative management at this point. We will continue to follow their recommendations. 3. Acute hypoxic respiratory failure secondary to COPD exacerbation Continue breathing treatments and supplemental oxygen as needed to keep O2 saturation greater than 90% Incentive spirometry Continue IV steroids Continue to follow regulations from pulmonary team. 4. Anxiety disorder Continue Xanax 5. Peripheral neuropathy Continue gabapentin 6. Dyslipidemia Continue statin 7. Acute kidney injury likely secondary to hypovolemia from hemorrhagic shock Acute kidney injury has resolved patient's serum creatinine is now normal. 8. Hyperglycemia Possibly secondary to IV steroids. Will obtain a hemoglobin A1c. Protonix for GI prophylaxis, no pharmacotherapy for DVT prophylaxis as the patient had a GI bleed.
[2018-06-01] MEDS: Labetalol HCl Inj 100 MG/20 ML Vial IV.PUSH PRN (19:25)
[2018-06-01] MEDS: amLODIPine 5 MG Tablet PO SCH (20:19)
[2018-06-01] MEDS: Melatonin 5 MG Tablet PO SCH (20:19)
--- NOTE | 2018-06-01 22:13 | P.PN ---
Subjective Interval history: Uneventful day Tolerating diet Physical Exam Vital signs: Vital Signs 06/01/18 00:00 06/01/18 01:34 06/01/18 02:00 Temperature 98.4 F Pulse Rate 69 66 Respiratory Rate 17 18 Blood Pressure 124/58 L Pulse Oximetry 93 L 06/01/18 04:00 06/01/18 05:23 06/01/18 06:00 Temperature Pulse Rate 68 73 Respiratory Rate 15 18 Blood Pressure 155/68 H Pulse Oximetry 95 06/01/18 08:00 06/01/18 09:14 06/01/18 10:00 Temperature 97.8 F Pulse Rate 65 73 73 Respiratory Rate 18 21 Blood Pressure 157/70 H Pulse Oximetry 99 98 06/01/18 10:03 06/01/18 11:56 06/01/18 12:00 Temperature 98.3 F Pulse Rate 63 56 L Respiratory Rate 8 L 18 15 Blood Pressure 143/69 H Pulse Oximetry 100 06/01/18 14:00 06/01/18 15:36 06/01/18 16:00 Temperature 98 F Pulse Rate 69 60 64 Respiratory Rate 15 16 Blood Pressure 154/69 H Pulse Oximetry 97 06/01/18 18:00 06/01/18 20:05 06/01/18 20:07 Temperature Pulse Rate 80 72 Respiratory Rate 20 Blood Pressure Pulse Oximetry 93 L Intake & Output 06/01/18 06/01/18 06/02/18 06:59 18:59 06:59 Intake Total 1315 / 1315 900 / 900 Output Total 1200 / 1200 1000 / 1000 Balance 115 / 115 -100 / -100 Weight 99.3 kg Intake: IV 915 / 915 200 / 200 Protonix Inj 80 MG In NS Inj 200 / 200 100 / 100 100 ML @ 10 mls/hr IV.CONT Q10H ANNE Rx#:[id number] Zosyn 3.375 GM Premix 50 ML @ 200 / 200 100 / 100 200 mls/hr IV.SIG Q6H ANNE Rx#: [id number] Vancomycin Inj 1,500 MG In NS 515 / 515 Inj 500 ML @ 250 mls/hr IV.SIG Q18H ANNE Rx#:[id number] Oral 400 / 400 700 / 700 Output: Urine 1000 / 1000 Urine Amount (Catheter) 1200 / 1200 Indwelling Urethral Catheter 1200 / 1200 Other: Date of Last Bowel Movement 05/30/18 05/30/18 - Constitutional no acute distress - Routine Abdominal Exam Present: soft - Urinary Catheter Management Indwelling Urethral Catheter Cath placed during this visit: yes Reason for continuing: Hourly intake/output Insertion date: 05/20/18 Insertion time: 06:00 Results - Labs CBC & Chem 7: 06/01/18 04:47 06/01/18 04:47 Laboratory Results - last 24 hr 06/01/18 06/01/18 06/01/18 04:46 04:47 04:47 WBC 9.9 RBC 3.12 L Hgb 9.4 L Hct 27.7 L MCV 89.0 MCH 30.1 MCHC 33.9 RDW 15.3 Plt Count 132 L MPV 8.9 Prelim Diff (Auto) Slide review pending Neut % (Auto) 92.4 H Lymph % (Auto) 5.0 L [place] % (Auto) 2.4 Eos % (Auto) 0.1 Baso % (Auto) 0.1 Neut # (Auto) 9.1 H Lymph # (Auto) 0.5 L [place] # (Auto) 0.2 Eos # (Auto) 0.0 Baso # (Auto) 0.0 WBC Differential . Diff Scan Auto diff confirmed Differential Comment . Sodium 143 Potassium 4.2 Chloride 106 Carbon Dioxide 28.6 Anion Gap 8 BUN 15 Creatinine 0.73 Estimated GFR 79 L POC Glucose 299 H Random Glucose 280 H Calcium 8.0 L 06/01/18 06/01/18 06/01/18 09:17 12:32 18:18 WBC RBC Hgb Hct MCV MCH MCHC RDW Plt Count MPV Prelim Diff (Auto) Neut % (Auto) Lymph % (Auto) [place] % (Auto) Eos % (Auto) Baso % (Auto) Neut # (Auto) Lymph # (Auto) [place] # (Auto) Eos # (Auto) Baso # (Auto) WBC Differential Diff Scan Differential Comment Sodium Potassium Chloride Carbon Dioxide Anion Gap BUN Creatinine Estimated GFR POC Glucose 225 H 211 H 299 H Random Glucose Calcium 06/01/18 21:10 WBC RBC Hgb Hct MCV MCH MCHC RDW Plt Count MPV Prelim Diff (Auto) Neut % (Auto) Lymph % (Auto) [place] % (Auto) Eos % (Auto) Baso % (Auto) Neut # (Auto) Lymph # (Auto) [place] # (Auto) Eos # (Auto) Baso # (Auto) WBC Differential Diff Scan Differential Comment Sodium Potassium Chloride Carbon Dioxide Anion Gap BUN Creatinine Estimated GFR POC Glucose 310 H Random Glucose Calcium Microbiology 05/29/18 04:40 Blood - Peripheral Aerobic Blood Culture - Preliminary No growth in 3 days 05/29/18 04:40 Blood - Peripheral Anaerobic Blood Culture - Preliminary No growth in 3 days 05/29/18 04:40 Blood - Peripheral Aerobic Blood Culture - Preliminary No growth in 3 days 05/29/18 04:40 Blood - Peripheral Anaerobic Blood Culture - Preliminary No growth in 3 days - Procedures central line placement. Assessment and Plan - Assessment (1) GI hemorrhage Code(s): K92.2 - Gastrointestinal hemorrhage, unspecified Status: Acute Plan: Stable with Hb 9.4 (9.1 yesterday) Would hold any and all Xarelto or other anticoagulants as it is contraindicated at this time. Will sign off and see as needed. (2) Abdominal pain, acute Code(s): R10.9 - Unspecified abdominal pain Status: Acute (3) Acute blood loss anemia Code(s): D62 - Acute posthemorrhagic anemia Status: Acute (4) Acute hypotension Code(s): I95.9 - Hypotension, unspecified Status: Acute
[2018-06-02] MEDS: Insulin NovoLOG Aspart Correctional Sugar Inj SQ SCH ×7 (00:19→23:39)
[2018-06-02] MEDS: Oral Hygiene Kit OROPHARYNG SCH ×5 (00:20→23:39)
[2018-06-02] MEDS: Pantoprazole Inj 80 MG in Sodium Chlor 0.9% Inj 100 ML IV.CONT SCH ×3 (02:34→20:33)
[2018-06-02] MEDS: Piperacil/Tazo 3.375 GM Premix 50 ML IV.SIG SCH ×4 (02:42→20:42)
[2018-06-02] MEDS: Morphine Inj 4 MG/ML Vial IV.PUSH PRN ×6 (02:42→23:14)
[2018-06-02] MEDS: Vancomycin Inj 1,500 MG in Sodium Chlor 0.9% Inj 500 ML IV.SIG SCH ×2 (05:38→23:39)
[2018-06-02] MEDS: Carvedilol 12.5 MG Tablet PO SCH ×2 (08:46→20:35)
[2018-06-02] MEDS: Chlorhexidine 0.12% Oral Kit 15 ML UDC OROPHARYNG SCH ×2 (08:46→20:36)
[2018-06-02] MEDS: Mupirocin 2% Nasal Oint Topical Syringe EACH NARE SCH ×2 (08:46→20:35)
[2018-06-02] MEDS: Senna/Docusate Sodium 8.6/50 MG Tablet PO SCH ×2 (08:47→20:35)
[2018-06-02] MEDS: Lactic Acid (Ammonium Lactate) 12% Lotion 225 GM Bottle TOPICAL SCH (08:47)
[2018-06-02] MEDS: Gabapentin 100 MG Capsule PO SCH ×3 (08:47→17:39)
[2018-06-02] MEDS: Polyvinyl Alcohol/Povidone PF Opth Drops 0.4 ML Dropperette EACH EYE SCH ×2 (08:47→20:36)
[2018-06-02] MEDS: traZODone 50 MG Tablet PO SCH (08:47)
[2018-06-02] MEDS: MethylPREDNISolone Sod Succinate Inj 40 MG/ML Vial IV.PUSH SCH (08:47)
[2018-06-02] MEDS: amLODIPine 5 MG Tablet PO SCH (08:47)
[2018-06-02] MEDS: Budesonide-Formoterol 160/4.5 MCG 6 GM Inhaler INH SCH ×2 (08:47→20:36)
[2018-06-02] MEDS ORDERED: amLODIPine 5 MG Tablet PO ONE (11:00)
[2018-06-02] MEDS: Lisinopril 10 MG Tablet PO SCH (11:10)
--- NOTE | 2018-06-02 12:37 | P.PN ---
Subjective Interval history: No new change . On O2 2 l Hgb is stable at 9.3. No active GI bleed noted. Physical Exam Vital signs: Vital Signs 06/01/18 14:00 06/01/18 15:36 06/01/18 16:00 Temperature 98 F Pulse Rate 69 60 64 Respiratory Rate 15 16 Blood Pressure 154/69 H Pulse Oximetry 97 06/01/18 18:00 06/01/18 20:00 06/01/18 20:05 Temperature 97.7 F Pulse Rate 80 77 72 Respiratory Rate 16 20 Blood Pressure 169/73 H Pulse Oximetry 97 06/01/18 20:07 06/01/18 22:00 06/02/18 00:00 Temperature 97.6 F Pulse Rate 65 70 Respiratory Rate 16 Blood Pressure 166/74 H Pulse Oximetry 93 L 96 06/02/18 00:33 06/02/18 02:00 06/02/18 04:00 Temperature 97.8 F Pulse Rate 65 82 62 Respiratory Rate 14 14 Blood Pressure 157/71 H Pulse Oximetry 97 06/02/18 04:26 06/02/18 06:00 06/02/18 07:55 Temperature Pulse Rate 59 L 64 59 L Respiratory Rate 16 13 Blood Pressure Pulse Oximetry 99 06/02/18 08:00 06/02/18 10:00 06/02/18 10:52 Temperature 97.9 F Pulse Rate 61 63 69 Respiratory Rate 13 25 H Blood Pressure 206/88 H Pulse Oximetry 100 06/02/18 12:00 Temperature 98.6 F Pulse Rate 70 Respiratory Rate 18 Blood Pressure 182/80 H Pulse Oximetry 92 L Intake & Output 06/01/18 06/02/18 06/02/18 18:59 06:59 18:59 Intake Total 1415 / 1415 680 / 680 100 / 100 Output Total 1000 / 1000 600 / 600 Balance 415 / 415 80 / 80 100 / 100 Intake: IV 715 / 715 200 / 200 100 / 100 Protonix Inj 80 MG In NS Inj 100 / 100 100 / 100 100 / 100 100 ML @ 10 mls/hr IV.CONT Q10H ANNE Rx#:[id number] Zosyn 3.375 GM Premix 50 ML @ 100 / 100 100 / 100 200 mls/hr IV.SIG Q6H ANNE Rx#: [id number] Vancomycin Inj 1,500 MG In NS 515 / 515 Inj 500 ML @ 250 mls/hr IV.SIG Q18H ANNE Rx#:[id number] Oral 700 / 700 480 / 480 Output: Urine 1000 / 1000 600 / 600 Other: Date of Last Bowel Movement 05/30/18 06/02/18 06/02/18 # Bowel Movements 1 Narrative: General patient in no acute distress GENERAL: SKIN: Warm and dry.[place]+. HEAD: Normocephalic. EYES: No scleral icterus. No injection or drainage. NECK: Supple, trachea midline. No JVD or lymphadenopathy. CARDIOVASCULAR: Regular rate and rhythm without murmurs, gallops, or rubs. RESPIRATORY: Breath sounds equal bilaterally. No accessory muscle use. GASTROINTESTINAL: Abdomen soft, non-tender, nondistended. MUSCULOSKELETAL: No cyanosis, or edema. BACK: Nontender without obvious deformity. No CVA tenderness. - Urinary Catheter Management Indwelling Urethral Catheter Cath placed during this visit: yes Reason for continuing: Hourly intake/output Insertion date: 05/20/18 Insertion time: 06:00 Results - Labs CBC & Chem 7: 06/01/18 04:47 06/02/18 06:06 Laboratory Results - last 24 hr 06/01/18 06/01/18 06/01/18 12:32 18:18 21:10 Creatinine Estimated GFR POC Glucose 211 H 299 H 310 H 06/02/18 06/02/18 06/02/18 00:13 04:33 06:06 Creatinine 0.88 Estimated GFR 64 L POC Glucose 279 H 270 H 06/02/18 06/02/18 08:22 11:10 Creatinine Estimated GFR POC Glucose 228 H 202 H Microbiology 05/29/18 04:40 Blood - Peripheral Aerobic Blood Culture - Preliminary No growth in 4 days 05/29/18 04:40 Blood - Peripheral Anaerobic Blood Culture - Preliminary No growth in 4 days 05/29/18 04:40 Blood - Peripheral Aerobic Blood Culture - Preliminary No growth in 4 days 05/29/18 04:40 Blood - Peripheral Anaerobic Blood Culture - Preliminary No growth in 4 days - Procedures central line placement. Assessment and Plan - Assessment (1) GI bleed requiring more than 4 units of blood in 24 hours, ICU, or surgery Code(s): K92.2 - Gastrointestinal hemorrhage, unspecified Status: Acute (2) Anemia Code(s): D64.9 - Anemia, unspecified Status: Acute (3) Shock Code(s): R57.9 - Shock, unspecified Status: Acute (4) COPD (chronic obstructive pulmonary disease) Code(s): J44.9 - Chronic obstructive pulmonary disease, unspecified Status: Chronic (5) Major depression, recurrent Code(s): F33.9 - Major depressive disorder, recurrent, unspecified Status: Acute (6) Sepsis Code(s): A41.9 - Sepsis, unspecified organism Status: Acute (7) Atelectasis Code(s): J98.11 - Atelectasis Status: Acute - Plan 1. Continue O2 at 2 L.and wean to RA 2. CBC,BMP in am 3. Duonebs qid prn. 4. Up with help 5. IS q3h bedside 6. Transfer to tele (4) COPD (chronic obstructive pulmonary disease) Qualifiers: COPD type: unspecified COPD Qualified Code(s): J44.9 - Chronic obstructive pulmonary disease, unspecified
--- NOTE | 2018-06-02 18:16 | P.PNIM ---
Subjective Interval history: Patient is in no acute distress. She is sitting comfortably on 3 L of supplemental oxygen. She is tolerating a p.o. diet. She does not have any other complaints. Physical Exam Vital signs: Vital Signs 06/01/18 20:00 06/01/18 20:05 06/01/18 20:07 Temperature 97.7 F Pulse Rate 77 72 Respiratory Rate 16 20 Blood Pressure 169/73 H Pulse Oximetry 97 93 L 06/01/18 22:00 06/02/18 00:00 06/02/18 00:33 Temperature 97.6 F Pulse Rate 65 70 65 Respiratory Rate 16 14 Blood Pressure 166/74 H Pulse Oximetry 96 06/02/18 02:00 06/02/18 04:00 06/02/18 04:26 Temperature 97.8 F Pulse Rate 82 62 59 L Respiratory Rate 14 16 Blood Pressure 157/71 H Pulse Oximetry 97 06/02/18 06:00 06/02/18 07:55 06/02/18 08:00 Temperature 97.9 F Pulse Rate 64 59 L 61 Respiratory Rate 13 13 Blood Pressure 206/88 H Pulse Oximetry 99 100 06/02/18 10:00 06/02/18 10:52 06/02/18 12:00 Temperature 98.6 F Pulse Rate 63 69 70 Respiratory Rate 25 H 18 Blood Pressure 182/80 H Pulse Oximetry 92 L 06/02/18 13:00 06/02/18 14:00 06/02/18 15:00 Temperature Pulse Rate 78 68 76 Respiratory Rate 25 H 14 21 Blood Pressure 171/71 H 145/66 H 144/64 H Pulse Oximetry 90 L 94 L 92 L 06/02/18 15:35 06/02/18 16:00 Temperature Pulse Rate 65 68 Respiratory Rate 15 15 Blood Pressure 144/65 H Pulse Oximetry 93 L Intake & Output 06/01/18 06/02/18 06/02/18 18:59 06:59 18:59 Intake Total 1415 / 1415 680 / 680 150 / 150 Output Total 1000 / 1000 600 / 600 1000 / 1000 Balance 415 / 415 80 / 80 -850 / -850 Intake: IV 715 / 715 200 / 200 150 / 150 Protonix Inj 80 MG In NS Inj 100 / 100 100 / 100 100 / 100 100 ML @ 10 mls/hr IV.CONT Q10H PENDING SALE TO [facility] Rx#:[id number] Zosyn 3.375 GM Premix 50 ML @ 100 / 100 100 / 100 50 / 50 200 mls/hr IV.SIG Q6H [facility] Rx#: [id number] Vancomycin Inj 1,500 MG In NS 515 / 515 Inj 500 ML @ 250 mls/hr IV.SIG Q18H ANNE Rx#:[id number] Oral 700 / 700 480 / 480 Output: Urine 1000 / 1000 600 / 600 1000 / 1000 Other: Date of Last Bowel Movement 05/30/18 06/02/18 06/02/18 # Bowel Movements 1 1 Narrative: General patient in no acute distress HEENT extraocular movements are intact, clear oropharyngeal mucosa Cardiovascular S1-S2 audible Respiratory clear to auscultation bilaterally Abdomen soft, nontender, nondistended, normal bowel sounds Extremities no edema 2+ distal pulses in bilateral upper and lower extremities Neuro patient moves all 4 extremities, sensation is intact bilaterally - Urinary Catheter Management Indwelling Urethral Catheter Cath placed during this visit: yes Reason for continuing: Hourly intake/output Insertion date: 05/20/18 Insertion time: 06:00 Results - Labs CBC & Chem 7: 06/01/18 04:47 06/02/18 06:06 Laboratory Results - last 24 hr 06/01/18 06/01/18 06/02/18 18:18 21:10 00:13 Creatinine Estimated GFR POC Glucose 299 H 310 H 279 H 06/02/18 06/02/18 06/02/18 04:33 06:06 08:22 Creatinine 0.88 Estimated GFR 64 L POC Glucose 270 H 228 H 06/02/18 06/02/18 11:10 17:51 Creatinine Estimated GFR POC Glucose 202 H 307 H Microbiology 05/29/18 04:40 Blood - Peripheral Aerobic Blood Culture - Preliminary No growth in 4 days 05/29/18 04:40 Blood - Peripheral Anaerobic Blood Culture - Preliminary No growth in 4 days 05/29/18 04:40 Blood - Peripheral Aerobic Blood Culture - Preliminary No growth in 4 days 05/29/18 04:40 Blood - Peripheral Anaerobic Blood Culture - Preliminary No growth in 4 days - Procedures central line placement. Assessment and Plan - Plan This patient is a 68-year-old female from [facility]. She has a history of hypertension dyslipidemia and pulmonary embolus and was on Xarelto. She was brought into our emergency department after she was found to have systolic blood pressure in the 60s and was having dark colored stools. 1. Hemorrhagic shock secondary to GI bleed resolved No drop in the patient's hemoglobin. Anticoagulant and aspirin have been held because of the GI bleed. The patient is currently off of levophed. Blood pressure is stable. EGD and colonoscopy were done which showed severe erythematous gastritis as well as findings consistent with ischemic colitis Continue Protonix drip. Surgery co-following, recommends non-operative management at this point. Will continue to follow recommendations from GI and surgery. 2. Ischemic colitis Continue IV antibiotics. Surgery is recommending nonoperative management at this point. We will continue to follow their recommendations. 3. Acute hypoxic respiratory failure secondary to COPD exacerbation Continue breathing treatments and supplemental oxygen as needed to keep O2 saturation greater than 90% Incentive spirometry Continue IV steroids Continue to follow regulations from pulmonary team. 4. Anxiety disorder Continue Xanax 5. Peripheral neuropathy Continue gabapentin 6. Dyslipidemia Continue statin 7. Acute kidney injury likely secondary to hypovolemia from hemorrhagic shock Acute kidney injury has resolved patient's serum creatinine is now normal. 8. Hyperglycemia Patient is consistently hyperglycemic. Continue low-dose insulin sliding scale. The patient will be started on Lantus. Possibly secondary to IV steroids. Will obtain a hemoglobin A1c. Protonix for GI prophylaxis, no pharmacotherapy for DVT prophylaxis as the patient had a GI bleed.
[2018-06-02] MEDS: Melatonin 5 MG Tablet PO SCH (20:36)
[2018-06-02] MEDS: Insulin Detemir Inj 1,000 UNIT/10 ML Vial SQ SCH (20:36)
[2018-06-02] MEDS: ALPRAZolam 0.5 MG Tablet PO PRN (20:41)
[2018-06-02] MEDS ORDERED: Pharmacy Ordered Lab Info OTHER ONE (23:45)
[2018-06-03] MEDS: Piperacil/Tazo 3.375 GM Premix 50 ML IV.SIG SCH ×4 (03:48→22:41)
[2018-06-03] MEDS: Insulin NovoLOG Aspart Correctional Sugar Inj SQ SCH ×5 (03:50→22:48)
[2018-06-03] MEDS: Oral Hygiene Kit OROPHARYNG SCH ×3 (03:51→16:43)
[2018-06-03] MEDS: Morphine Inj 4 MG/ML Vial IV.PUSH PRN ×2 (04:32→08:48)
[2018-06-03] MEDS: Pantoprazole Inj 80 MG in Sodium Chlor 0.9% Inj 100 ML IV.CONT SCH ×2 (05:47→14:53)
[2018-06-03 07:45] LABS: Calcium 8.3 mg/dL (8.5-10.1)
[2018-06-03 07:49] LABS: Hematocrit 28.8 % (35.0-46.0); Hemoglobin 9.4 gm/dL (11.6-15.3); Mean Corpuscular HGB Conc 32.7 % (32.0-36.0); Mean Corpuscular Hemoglobin 29.9 pg (27.0-34.0); Mean Corpuscular Volume 91.3 fL (80.0-100.0); Mean Platelet Volume 8.8 fL (7.0-11.0); Platelet Count 168 th/mm3 (150-450); Red Blood Count 3.16 mil/mm3 (4.00-5.30); Red Cell Distribution Width 15.1 % (11.6-17.2); White Blood Count 10.6 th/mm3 (4.0-11.0)
[2018-06-03] MEDS: Chlorhexidine 0.12% Oral Kit 15 ML UDC OROPHARYNG SCH ×2 (08:46→22:00)
[2018-06-03] MEDS: Carvedilol 12.5 MG Tablet PO SCH ×2 (08:47→21:59)
[2018-06-03] MEDS: Lisinopril 10 MG Tablet PO SCH (08:47)
[2018-06-03] MEDS: Gabapentin 100 MG Capsule PO SCH ×3 (08:47→17:57)
[2018-06-03] MEDS: Mupirocin 2% Nasal Oint Topical Syringe EACH NARE SCH ×2 (08:47→21:59)
[2018-06-03] MEDS: traZODone 50 MG Tablet PO SCH (08:47)
[2018-06-03] MEDS: amLODIPine 10 MG Tablet PO SCH (08:48)
[2018-06-03] MEDS: Budesonide-Formoterol 160/4.5 MCG 6 GM Inhaler INH SCH ×2 (08:49→22:45)
[2018-06-03] MEDS: Lactic Acid (Ammonium Lactate) 12% Lotion 225 GM Bottle TOPICAL SCH (08:52)
[2018-06-03] MEDS: Polyvinyl Alcohol/Povidone PF Opth Drops 0.4 ML Dropperette EACH EYE SCH ×2 (08:53→22:51)
[2018-06-03] MEDS: Senna/Docusate Sodium 8.6/50 MG Tablet PO SCH ×2 (09:16→21:59)
--- NOTE | 2018-06-03 12:02 | P.PN ---
Subjective Interval history: She is better. On O2 2 L. No chest pains. Able to take a diet. C/O Arm swelling. Physical Exam Vital signs: Vital Signs 06/02/18 12:00 06/02/18 13:00 06/02/18 14:00 Temperature 98.6 F Pulse Rate 70 78 68 Respiratory Rate 18 25 H 14 Blood Pressure 182/80 H 171/71 H 145/66 H Pulse Oximetry 92 L 90 L 94 L 06/02/18 15:00 06/02/18 15:35 06/02/18 16:00 Temperature Pulse Rate 76 65 68 Respiratory Rate 21 15 15 Blood Pressure 144/64 H 144/65 H Pulse Oximetry 92 L 93 L 06/02/18 17:00 06/02/18 18:00 06/02/18 19:00 Temperature Pulse Rate 75 79 77 Respiratory Rate 14 13 22 Blood Pressure 134/66 138/65 155/67 H Pulse Oximetry 90 L 92 L 93 L 06/02/18 19:23 06/02/18 20:00 06/02/18 21:00 Temperature 97.8 F Pulse Rate 74 78 75 Respiratory Rate 16 19 14 Blood Pressure 157/67 H 139/63 Pulse Oximetry 94 L 96 94 L 06/02/18 22:00 06/02/18 23:00 06/02/18 23:42 Temperature Pulse Rate 64 61 64 Respiratory Rate 14 13 16 Blood Pressure 135/60 149/67 H Pulse Oximetry 98 98 06/02/18 23:43 06/03/18 00:00 06/03/18 01:00 Temperature 98.2 F Pulse Rate 57 L 61 Respiratory Rate 14 12 Blood Pressure 149/67 H 162/73 H Pulse Oximetry 96 97 97 06/03/18 02:00 06/03/18 03:00 06/03/18 04:00 Temperature 98.4 F Pulse Rate 62 61 62 Respiratory Rate 13 16 14 Blood Pressure 164/74 H 166/74 H 172/81 H Pulse Oximetry 98 98 99 06/03/18 04:41 06/03/18 05:00 06/03/18 05:02 Temperature Pulse Rate 58 L 60 64 Respiratory Rate 19 15 14 Blood Pressure 162/114 H 166/70 H Pulse Oximetry 100 99 06/03/18 06:00 06/03/18 07:00 06/03/18 07:24 Temperature Pulse Rate 64 56 L 63 Respiratory Rate 14 12 15 Blood Pressure Pulse Oximetry 94 L 98 98 06/03/18 07:44 06/03/18 08:00 06/03/18 09:00 Temperature 96.9 F L Pulse Rate 66 70 74 Respiratory Rate 21 18 14 Blood Pressure 162/80 H 172/78 H 172/78 H Pulse Oximetry 100 100 95 06/03/18 10:00 06/03/18 11:11 Temperature Pulse Rate 63 63 Respiratory Rate 19 Blood Pressure Pulse Oximetry Intake & Output 06/02/18 06/03/18 06/03/18 18:59 06:59 18:59 Intake Total 715 / 715 1115 / 1115 50 / 50 Output Total 2200 / 2200 150 / 150 Balance -1485 / -1485 965 / 965 50 / 50 Weight 100.4 kg Intake: IV 715 / 715 815 / 815 50 / 50 Protonix Inj 80 MG In NS Inj 100 / 100 200 / 200 100 ML @ 10 mls/hr IV.CONT Q10H [facility] Rx#:[id number] Zosyn 3.375 GM Premix 50 ML @ 100 / 100 100 / 100 50 / 50 200 mls/hr IV.SIG Q6H [facility] Rx#: [id number] Vancomycin Inj 1,500 MG In NS 515 / 515 515 / 515 Inj 500 ML @ 250 mls/hr IV.SIG Q18H [facility] Rx#:[id number] Oral 300 / 300 Output: Urine 2200 / 2200 150 / 150 Other: # Incontinent Voids 2 Date of Last Bowel Movement 06/02/18 06/03/18 06/03/18 # Bowel Movements 1 1 Narrative: General : Elderly W/F patient in no acute distress HEENT Clear throat Cardiovascular S1-S2 audible Respiratory clear to auscultation bilaterally Abdomen soft, nontender, nondistended, normal bowel sounds Extremities 2 + arm edema and 1+ distal pulses in bilateral upper and lower extremities Neuro patient moves all 4 extremities with no gross deficit. - Urinary Catheter Management Indwelling Urethral Catheter Cath placed during this visit: yes Reason for continuing: Hourly intake/output Insertion date: 05/20/18 Insertion time: 06:00 Results - Labs CBC & Chem 7: 06/03/18 06:45 06/03/18 06:45 Laboratory Results - last 24 hr 06/02/18 06/02/18 06/02/18 17:51 20:36 23:23 WBC RBC Hgb Hct MCV MCH MCHC RDW Plt Count MPV Sodium Potassium Chloride Carbon Dioxide Anion Gap BUN Creatinine Estimated GFR POC Glucose 307 H 290 H 301 H Random Glucose Calcium Vancomycin Trough 06/02/18 06/03/18 06/03/18 23:30 03:50 06:45 WBC 10.6 RBC 3.16 L Hgb 9.4 L Hct 28.8 L MCV 91.3 MCH 29.9 MCHC 32.7 RDW 15.1 Plt Count 168 MPV 8.8 Sodium Potassium Chloride Carbon Dioxide Anion Gap BUN Creatinine Estimated GFR POC Glucose 218 H Random Glucose Calcium Vancomycin Trough 14.2 H 06/03/18 06/03/18 06:45 07:51 WBC RBC Hgb Hct MCV MCH MCHC RDW Plt Count MPV Sodium 142 Potassium 4.0 Chloride 107 Carbon Dioxide 29.0 Anion Gap 6 BUN 15 Creatinine 0.79 Estimated GFR 72 L POC Glucose 126 H Random Glucose 142 H Calcium 8.3 L Vancomycin Trough Microbiology 05/29/18 04:40 Blood - Peripheral Aerobic Blood Culture - Final No growth in 5 days 05/29/18 04:40 Blood - Peripheral Anaerobic Blood Culture - Final No growth in 5 days 05/29/18 04:40 Blood - Peripheral Aerobic Blood Culture - Final No growth in 5 days 05/29/18 04:40 Blood - Peripheral Anaerobic Blood Culture - Final No growth in 5 days - Procedures central line placement. Assessment and Plan - Assessment (1) GI bleed requiring more than 4 units of blood in 24 hours, ICU, or surgery Code(s): K92.2 - Gastrointestinal hemorrhage, unspecified Status: Acute (2) Anemia Code(s): D64.9 - Anemia, unspecified Status: Acute (3) Shock Code(s): R57.9 - Shock, unspecified Status: Acute (4) COPD (chronic obstructive pulmonary disease) Code(s): J44.9 - Chronic obstructive pulmonary disease, unspecified Status: Chronic (5) Major depression, recurrent Code(s): F33.9 - Major depressive disorder, recurrent, unspecified Status: Acute (6) Sepsis Code(s): A41.9 - Sepsis, unspecified organism Status: Acute (7) Atelectasis Code(s): J98.11 - Atelectasis Status: Acute - Plan 1. Continue O2 at 2 L.and wean to RA 2. transfer to tele 3. [place] qid prn. 4. Up with help 5. IS q3h bedside 6. Rpt labs in am. (4) COPD (chronic obstructive pulmonary disease) Qualifiers: COPD type: unspecified COPD Qualified Code(s): J44.9 - Chronic obstructive pulmonary disease, unspecified
--- NOTE | 2018-06-03 17:08 | P.PNIM ---
Subjective Interval history: Patient does not appear to be in any acute distress. She complains of feeling weak. Otherwise does not have any other complaints. Physical Exam Vital signs: Vital Signs 06/02/18 18:00 06/02/18 19:00 06/02/18 19:23 Temperature Pulse Rate 79 77 74 Respiratory Rate 13 22 16 Blood Pressure 138/65 155/67 H Pulse Oximetry 92 L 93 L 94 L 06/02/18 20:00 06/02/18 21:00 06/02/18 22:00 Temperature 97.8 F Pulse Rate 78 75 64 Respiratory Rate 19 14 14 Blood Pressure 157/67 H 139/63 135/60 Pulse Oximetry 96 94 L 98 06/02/18 23:00 06/02/18 23:42 06/02/18 23:43 Temperature Pulse Rate 61 64 Respiratory Rate 13 16 Blood Pressure 149/67 H Pulse Oximetry 98 96 06/03/18 00:00 06/03/18 01:00 06/03/18 02:00 Temperature 98.2 F Pulse Rate 57 L 61 62 Respiratory Rate 14 12 13 Blood Pressure 149/67 H 162/73 H 164/74 H Pulse Oximetry 97 97 98 06/03/18 03:00 06/03/18 04:00 06/03/18 04:41 Temperature 98.4 F Pulse Rate 61 62 58 L Respiratory Rate 16 14 19 Blood Pressure 166/74 H 172/81 H Pulse Oximetry 98 99 06/03/18 05:00 06/03/18 05:02 06/03/18 06:00 Temperature Pulse Rate 60 64 64 Respiratory Rate 15 14 14 Blood Pressure 162/114 H 166/70 H Pulse Oximetry 100 99 94 L 06/03/18 07:00 06/03/18 07:24 06/03/18 07:44 Temperature Pulse Rate 56 L 63 66 Respiratory Rate 12 15 21 Blood Pressure 162/80 H Pulse Oximetry 98 98 100 06/03/18 08:00 06/03/18 09:00 06/03/18 10:00 Temperature 96.9 F L Pulse Rate 70 74 63 Respiratory Rate 18 14 13 Blood Pressure 172/78 H 172/78 H 134/67 Pulse Oximetry 100 95 93 L 06/03/18 11:00 06/03/18 11:11 06/03/18 12:00 Temperature 97.8 F Pulse Rate 60 63 66 Respiratory Rate 20 19 16 Blood Pressure 125/58 L 123/58 L Pulse Oximetry 98 97 06/03/18 13:00 06/03/18 14:00 06/03/18 15:00 Temperature Pulse Rate 66 66 66 Respiratory Rate 14 20 18 Blood Pressure 129/61 140/65 143/64 H Pulse Oximetry 94 L 95 96 06/03/18 15:10 06/03/18 16:00 Temperature 98.3 F Pulse Rate 69 68 Respiratory Rate 14 15 Blood Pressure 119/57 L Pulse Oximetry 96 Intake & Output 06/02/18 06/03/18 06/03/18 18:59 06:59 18:59 Intake Total 715 / 715 1115 / 1115 150 / 150 Output Total 2200 / 2200 150 / 150 Balance -1485 / -1485 965 / 965 150 / 150 Weight 100.4 kg Intake: IV 715 / 715 815 / 815 150 / 150 Protonix Inj 80 MG In NS Inj 100 / 100 200 / 200 100 / 100 100 ML @ 10 mls/hr IV.CONT Q10H [facility] Rx#:[id number] Zosyn 3.375 GM Premix 50 ML @ 100 / 100 100 / 100 50 / 50 200 mls/hr IV.SIG Q6H [facility] Rx#: [id number] Vancomycin Inj 1,500 MG In NS 515 / 515 515 / 515 Inj 500 ML @ 250 mls/hr IV.SIG Q18H [facility] Rx#:[id number] Oral 300 / 300 Output: Urine 2200 / 2200 150 / 150 Other: # Incontinent Voids 2 Date of Last Bowel Movement 06/02/18 06/03/18 06/03/18 # Bowel Movements 1 1 Narrative: General patient in no acute distress, nasal cannula in place. HEENT extraocular movements are intact, clear oropharyngeal mucosa Cardiovascular S1-S2 audible Respiratory clear to auscultation bilaterally Abdomen soft, nontender, nondistended, normal bowel sounds Extremities no edema 2+ distal pulses in bilateral upper and lower extremities Neuro patient moves all 4 extremities, sensation is intact bilaterally - Urinary Catheter Management Indwelling Urethral Catheter Cath placed during this visit: yes Reason for continuing: Hourly intake/output Insertion date: 05/20/18 Insertion time: 06:00 Results - Labs CBC & Chem 7: 06/03/18 06:45 06/03/18 06:45 Laboratory Results - last 24 hr 06/02/18 06/02/18 06/02/18 17:51 20:36 23:23 WBC RBC Hgb Hct MCV MCH MCHC RDW Plt Count MPV Sodium Potassium Chloride Carbon Dioxide Anion Gap BUN Creatinine Estimated GFR POC Glucose 307 H 290 H 301 H Random Glucose Calcium Vancomycin Trough 06/02/18 06/03/18 06/03/18 23:30 03:50 06:45 WBC 10.6 RBC 3.16 L Hgb 9.4 L Hct 28.8 L MCV 91.3 MCH 29.9 MCHC 32.7 RDW 15.1 Plt Count 168 MPV 8.8 Sodium Potassium Chloride Carbon Dioxide Anion Gap BUN Creatinine Estimated GFR POC Glucose 218 H Random Glucose Calcium Vancomycin Trough 14.2 H 06/03/18 06/03/18 06/03/18 06:45 07:51 12:01 WBC RBC Hgb Hct MCV MCH MCHC RDW Plt Count MPV Sodium 142 Potassium 4.0 Chloride 107 Carbon Dioxide 29.0 Anion Gap 6 BUN 15 Creatinine 0.79 Estimated GFR 72 L POC Glucose 126 H 137 H Random Glucose 142 H Calcium 8.3 L Vancomycin Trough 06/03/18 16:12 WBC RBC Hgb Hct MCV MCH MCHC RDW Plt Count MPV Sodium Potassium Chloride Carbon Dioxide Anion Gap BUN Creatinine Estimated GFR POC Glucose 155 H Random Glucose Calcium Vancomycin Trough Microbiology 05/29/18 04:40 Blood - Peripheral Aerobic Blood Culture - Final No growth in 5 days 05/29/18 04:40 Blood - Peripheral Anaerobic Blood Culture - Final No growth in 5 days 05/29/18 04:40 Blood - Peripheral Aerobic Blood Culture - Final No growth in 5 days 05/29/18 04:40 Blood - Peripheral Anaerobic Blood Culture - Final No growth in 5 days - Procedures central line placement. Assessment and Plan - Plan This patient is a 68-year-old female from a [facility] facility. She has a history of hypertension dyslipidemia and pulmonary embolus and was on Xarelto. She was brought into our emergency department after she was found to have systolic blood pressure in the 60s and was having dark colored stools. 1. Hemorrhagic shock secondary to GI bleed resolved No drop in the patient's hemoglobin. Anticoagulant and aspirin have been held because of the GI bleed as per surgery recommendations. The patient is currently off of levophed. Blood pressure is stable. EGD and colonoscopy were done which showed severe erythematous gastritis as well as findings consistent with ischemic colitis Continue Protonix drip. Surgery co-following, recommends non-operative management at this point. Will continue to follow recommendations from GI and surgery. 2. Ischemic colitis Continue IV antibiotics. Surgery is recommending nonoperative management at this point. We will continue to follow their recommendations. 3. Acute hypoxic respiratory failure secondary to COPD exacerbation Continue breathing treatments and supplemental oxygen as needed to keep O2 saturation greater than 90% Patient is currently on 2 L of supplemental oxygen with an O2 saturation of 96 % . Will be continue to titrate the patient off of supplemental oxygen. Incentive spirometry Continue to follow recommendations from pulmonary team. 4. Anxiety disorder Continue Xanax 5. Peripheral neuropathy Continue gabapentin 6. Dyslipidemia Continue statin 7. Acute kidney injury likely secondary to hypovolemia from hemorrhagic shock Acute kidney injury has resolved patient's serum creatinine is now normal. 8. Hyperglycemia Patient was consistently hyperglycemic yesterday. Continue low-dose insulin sliding scale. The patient was started on Lantus last night and her blood sugars are now better controlled. Will follow up the hemoglobin A1c. Protonix for GI prophylaxis, no pharmacotherapy for DVT prophylaxis as the patient had a GI bleed. Continue PT. Patient will likely need continued rehab after she is medically stable.
[2018-06-03] MEDS: Vancomycin Inj 1,500 MG in Sodium Chlor 0.9% Inj 500 ML IV.SIG SCH (17:56)
[2018-06-03] MEDS: ALPRAZolam 0.5 MG Tablet PO PRN (17:57)
[2018-06-03] MEDS: Pantoprazole Inj 40 MG Vial IV.PUSH SCH (18:00)
[2018-06-03 18:14] LABS: Hemoglobin A1c 6.9 % (4.3-6.0)
[2018-06-03] MEDS: Insulin Detemir Inj 1,000 UNIT/10 ML Vial SQ SCH (21:59)
[2018-06-03] MEDS: Melatonin 5 MG Tablet PO SCH (21:59)
[2018-06-04] MEDS: ALPRAZolam 0.5 MG Tablet PO PRN ×2 (00:49→11:00)
[2018-06-04 04:36] LABS: Hematocrit 28.8 % (35.0-46.0); Hemoglobin 9.9 gm/dL (11.6-15.3)
[2018-06-04] MEDS: Piperacil/Tazo 3.375 GM Premix 50 ML IV.SIG SCH ×3 (04:58→14:28)
[2018-06-04] MEDS: Oral Hygiene Kit OROPHARYNG SCH ×4 (04:59→16:10)
[2018-06-04] MEDS: Insulin NovoLOG Aspart Correctional Sugar Inj SQ SCH ×5 (04:59→16:10)
--- NOTE | 2018-06-04 09:14 | P.PCN ---
Date of procedure: 06/04/18 Pre-op diagnosis: Acute respiratory failure Post-op diagnosis: same Procedure: DATE: 06/04/2018 PROCEDURE: Orotracheal intubation INDICATION: Acute respiratory failure DETAILS OF PROCEDURE The patient was placed in optimal position and preoxygenated with 100% FiO2 via bag valve mask. At the start oxygen saturation was 93 %. The patient was administered no medication IV. I entered the oropharynx with a size 4 Kamryn laryngoscope blade and obtained a grade 3 view of the airway. On single attempt a size 8.0 cuffed endotracheal tube was passed through the vocal cords. Correct tube location was confirmed with end tidal CO2 detector and by auscultating over bilateral lung acevedo. The endotracheal tube was secured with adhesive tape at a depth of 23 cm at the lips. The patient was connected to the ventilator. The patient tolerated the procedure well without any apparent complications. Oxygen saturations were maintained greater than 95% all times. STAT chest x-ray pending at time of dictation.
[2018-06-04] MEDS: Chlorhexidine 0.12% Oral Kit 15 ML UDC OROPHARYNG SCH (09:45)
[2018-06-04] MEDS: traZODone 50 MG Tablet PO SCH (09:45)
[2018-06-04] MEDS: Pantoprazole Inj 40 MG Vial IV.PUSH SCH (09:45)
[2018-06-04] MEDS: Lisinopril 10 MG Tablet PO SCH (09:46)
[2018-06-04] MEDS: Carvedilol 12.5 MG Tablet PO SCH (09:46)
[2018-06-04] MEDS: Gabapentin 100 MG Capsule PO SCH ×3 (09:46→17:37)
[2018-06-04] MEDS: amLODIPine 10 MG Tablet PO SCH (09:46)
[2018-06-04] MEDS: Lactic Acid (Ammonium Lactate) 12% Lotion 225 GM Bottle TOPICAL SCH (09:47)
[2018-06-04] MEDS: Senna/Docusate Sodium 8.6/50 MG Tablet PO SCH (09:47)
[2018-06-04] MEDS: Polyvinyl Alcohol/Povidone PF Opth Drops 0.4 ML Dropperette EACH EYE SCH (09:47)
[2018-06-04] MEDS: Budesonide-Formoterol 160/4.5 MCG 6 GM Inhaler INH SCH (09:47)
[2018-06-04] MEDS: Mupirocin 2% Nasal Oint Topical Syringe EACH NARE SCH (09:51)
--- NOTE | 2018-06-04 12:44 | P.PN ---
Subjective Interval history: Alert and stale and on O2 2 L. Hgb is stable. Good output. Physical Exam Vital signs: Vital Signs 06/03/18 13:00 06/03/18 14:00 06/03/18 15:00 Temperature Pulse Rate 66 66 66 Respiratory Rate 14 20 18 Blood Pressure 129/61 140/65 143/64 H Pulse Oximetry 94 L 95 96 06/03/18 15:10 06/03/18 16:00 06/03/18 18:00 Temperature 98.3 F Pulse Rate 69 68 76 Respiratory Rate 14 15 Blood Pressure 119/57 L Pulse Oximetry 96 06/03/18 19:00 06/03/18 19:55 06/03/18 20:00 Temperature 98.3 F Pulse Rate 73 74 73 Respiratory Rate 15 17 14 Blood Pressure 155/69 H 153/70 H Pulse Oximetry 94 L 94 L 100 06/03/18 21:00 06/03/18 22:00 06/03/18 23:00 Temperature Pulse Rate 74 90 78 Respiratory Rate 16 16 15 Blood Pressure 126/58 L 129/57 L 145/66 H Pulse Oximetry 92 L 94 L 94 L 06/04/18 00:00 06/04/18 00:31 06/04/18 01:00 Temperature Pulse Rate 87 77 78 Respiratory Rate 17 18 16 Blood Pressure 129/61 Pulse Oximetry 96 96 95 06/04/18 01:05 06/04/18 02:00 06/04/18 03:00 Temperature Pulse Rate 72 87 79 Respiratory Rate 17 17 22 Blood Pressure Pulse Oximetry 96 99 06/04/18 04:00 06/04/18 04:14 06/04/18 04:24 Temperature 98.7 F Pulse Rate 88 63 71 Respiratory Rate 18 16 24 Blood Pressure 141/65 H Pulse Oximetry 98 100 06/04/18 05:00 06/04/18 06:00 06/04/18 07:00 Temperature Pulse Rate 71 72 82 Respiratory Rate 19 18 23 Blood Pressure Pulse Oximetry 90 L 91 L 76 L 06/04/18 07:38 06/04/18 08:00 06/04/18 09:00 Temperature 99.3 F Pulse Rate 80 65 76 Respiratory Rate 17 18 17 Blood Pressure Pulse Oximetry 98 92 L 96 06/04/18 10:00 06/04/18 10:17 06/04/18 11:00 Temperature Pulse Rate 75 80 66 Respiratory Rate 19 21 18 Blood Pressure 139/65 Pulse Oximetry 95 94 L 100 06/04/18 11:42 Temperature Pulse Rate 76 Respiratory Rate 16 Blood Pressure Pulse Oximetry Intake & Output 06/03/18 06/04/18 06/04/18 18:59 06:59 18:59 Intake Total 932 / 932 5567 / 5567 615 / 615 Output Total 1800 / 1800 825 / 825 Balance -868 / -868 4742 / 4742 615 / 615 Weight 111.6 kg Intake: IV 212 / 212 50 / 50 615 / 615 Protonix Inj 80 MG In NS Inj 112 / 112 100 ML @ 10 mls/hr IV.CONT Q10H [facility] Rx#:[id number] Zosyn 3.375 GM Premix 50 ML @ 100 / 100 50 / 50 100 / 100 200 mls/hr IV.SIG Q6H [facility] Rx#: [id number] Vancomycin Inj 1,500 MG In NS 515 / 515 Inj 500 ML @ 250 mls/hr IV.SIG Q18H [facility] Rx#:[id number] Oral 720 / 720 180 / 180 Tube Feeding 4437 / 4437 Water Bolus Amount 900 / 900 Output: Urine 1800 / 1800 300 / 300 Urine Amount (Stoma) 525 / 525 Nephrostomy Tube 525 / 525 Other: # Incontinent Voids 4 Date of Last Bowel Movement 06/03/18 06/03/18 06/03/18 # Bowel Movements 2 Narrative: General : Elderly W/F patient in no acute distress, nasal cannula in place. HEENT Throat clear. clear oropharyngeal mucosa Cardiovascular S1-S2 audible Respiratory clear to auscultation bilaterally Abdomen soft, nontender, nondistended, normal bowel sounds Extremities 1 + edema of legs and 2+ distal pulses in bilateral upper and lower extremities Neuro patient moves all 4 extremities, sensation is intact bilaterally - Urinary Catheter Management Indwelling Urethral Catheter Cath placed during this visit: yes Reason for continuing: Hourly intake/output Insertion date: 05/20/18 Insertion time: 06:00 Results - Labs CBC & Chem 7: 06/04/18 02:36 06/04/18 02:36 Laboratory Results - last 24 hr 06/03/18 06/03/18 06/03/18 06:45 16:12 22:07 Hgb Hct Creatinine Estimated GFR POC Glucose 155 H 179 H Hemoglobin A1c 6.9 H 06/04/18 06/04/18 06/04/18 00:50 02:36 02:36 Hgb 9.9 L Hct 28.8 L Creatinine 1.00 Estimated GFR 55 L POC Glucose 159 H Hemoglobin A1c 06/04/18 06/04/18 04:49 12:31 Hgb Hct Creatinine Estimated GFR POC Glucose 126 H 91 Hemoglobin A1c Microbiology 05/29/18 04:40 Blood - Peripheral Aerobic Blood Culture - Final No growth in 5 days 05/29/18 04:40 Blood - Peripheral Anaerobic Blood Culture - Final No growth in 5 days 05/29/18 04:40 Blood - Peripheral Aerobic Blood Culture - Final No growth in 5 days 05/29/18 04:40 Blood - Peripheral Anaerobic Blood Culture - Final No growth in 5 days - Procedures central line placement. Assessment and Plan - Assessment (1) GI bleed requiring more than 4 units of blood in 24 hours, ICU, or surgery Code(s): K92.2 - Gastrointestinal hemorrhage, unspecified Status: Acute (2) Anemia Code(s): D64.9 - Anemia, unspecified Status: Acute (3) Shock Code(s): R57.9 - Shock, unspecified Status: Acute (4) COPD (chronic obstructive pulmonary disease) Code(s): J44.9 - Chronic obstructive pulmonary disease, unspecified Status: Chronic (5) Major depression, recurrent Code(s): F33.9 - Major depressive disorder, recurrent, unspecified Status: Acute (6) Sepsis Code(s): A41.9 - Sepsis, unspecified organism Status: Acute (7) Atelectasis Code(s): J98.11 - Atelectasis Status: Acute - Plan 1. O2 at 2 L.and wean to RA 2. transfer to tele 3. [place] qid prn. 4. IS bedside qid. 5. Diet low salt 6. Rpt labs in am. (4) COPD (chronic obstructive pulmonary disease) Qualifiers: COPD type: unspecified COPD Qualified Code(s): J44.9 - Chronic obstructive pulmonary disease, unspecified
[2018-06-04] MEDS: Vancomycin Inj 1,500 MG in Sodium Chlor 0.9% Inj 500 ML IV.SIG SCH (13:41)
[2018-06-04 14:00] LABS: Hematocrit 30.4 % (35.0-46.0); Mean Corpuscular Hemoglobin 30.1 pg (27.0-34.0); Mean Corpuscular Volume 91.4 fL (80.0-100.0); Mean Platelet Volume 8.6 fL (7.0-11.0); Platelet Count 198 th/mm3 (150-450); Red Blood Count 3.32 mil/mm3 (4.00-5.30); Red Cell Distribution Width 15.7 % (11.6-17.2); White Blood Count 10.8 th/mm3 (4.0-11.0)
[2018-06-04] MEDS: Acetaminophen 325 MG Tablet PO PRN (14:28)
--- NOTE | 2018-06-04 14:31 | P.PNIM ---
Physical Exam Vital signs: Vital Signs 06/03/18 15:00 06/03/18 15:10 06/03/18 16:00 Temperature 98.3 F Pulse Rate 66 69 68 Respiratory Rate 18 14 15 Blood Pressure 143/64 H 119/57 L Pulse Oximetry 96 96 06/03/18 18:00 06/03/18 19:00 06/03/18 19:55 Temperature Pulse Rate 76 73 74 Respiratory Rate 15 17 Blood Pressure 155/69 H Pulse Oximetry 94 L 94 L 06/03/18 20:00 06/03/18 21:00 06/03/18 22:00 Temperature 98.3 F Pulse Rate 73 74 90 Respiratory Rate 14 16 16 Blood Pressure 153/70 H 126/58 L 129/57 L Pulse Oximetry 100 92 L 94 L 06/03/18 23:00 06/04/18 00:00 06/04/18 00:31 Temperature Pulse Rate 78 87 77 Respiratory Rate 15 17 18 Blood Pressure 145/66 H 129/61 Pulse Oximetry 94 L 96 96 06/04/18 01:00 06/04/18 01:05 06/04/18 02:00 Temperature Pulse Rate 78 72 87 Respiratory Rate 16 17 17 Blood Pressure Pulse Oximetry 95 96 06/04/18 03:00 06/04/18 04:00 06/04/18 04:14 Temperature 98.7 F Pulse Rate 79 88 63 Respiratory Rate 22 18 16 Blood Pressure Pulse Oximetry 99 98 06/04/18 04:24 06/04/18 05:00 06/04/18 06:00 Temperature Pulse Rate 71 71 72 Respiratory Rate 24 19 18 Blood Pressure 141/65 H Pulse Oximetry 100 90 L 91 L 06/04/18 07:00 06/04/18 07:38 06/04/18 08:00 Temperature 99.3 F Pulse Rate 82 80 65 Respiratory Rate 23 17 18 Blood Pressure Pulse Oximetry 76 L 98 92 L 06/04/18 09:00 06/04/18 10:00 06/04/18 10:17 Temperature Pulse Rate 76 75 80 Respiratory Rate 17 19 21 Blood Pressure 139/65 Pulse Oximetry 96 95 94 L 06/04/18 11:00 06/04/18 11:42 06/04/18 12:00 Temperature Pulse Rate 66 76 74 Respiratory Rate 18 16 22 Blood Pressure 151/66 H Pulse Oximetry 100 100 06/04/18 13:00 Temperature Pulse Rate 74 Respiratory Rate 18 Blood Pressure Pulse Oximetry 96 Intake & Output 06/03/18 06/04/18 06/04/18 18:59 06:59 18:59 Intake Total 932 / 932 5567 / 5567 615 / 615 Output Total 1800 / 1800 825 / 825 Balance -868 / -868 4742 / 4742 615 / 615 Weight 111.6 kg Intake: IV 212 / 212 50 / 50 615 / 615 Protonix Inj 80 MG In NS Inj 112 / 112 100 ML @ 10 mls/hr IV.CONT Q10H ANNE Rx#:[id number] Zosyn 3.375 GM Premix 50 ML @ 100 / 100 50 / 50 100 / 100 200 mls/hr IV.SIG Q6H ANNE Rx#: [id number] Vancomycin Inj 1,500 MG In NS 515 / 515 Inj 500 ML @ 250 mls/hr IV.SIG Q18H ANNE Rx#:[id number] Oral 720 / 720 180 / 180 Tube Feeding 4437 / 4437 Water Bolus Amount 900 / 900 Output: Urine 1800 / 1800 300 / 300 Urine Amount (Stoma) 525 / 525 Nephrostomy Tube 525 / 525 Other: # Incontinent Voids 4 Date of Last Bowel Movement 06/03/18 06/03/18 06/03/18 # Bowel Movements 2 Narrative: General patient in no acute distress, nasal cannula in place, she appears slightly more drowsy than my evaluation yesterday. She says she did not sleep well last night. HEENT extraocular movements are intact, clear oropharyngeal mucosa Cardiovascular S1-S2 audible Respiratory clear to auscultation bilaterally Abdomen soft, patient complains of some abdominal pain most lower quadrants bilaterally. Extremities no edema 2+ distal pulses in bilateral upper and lower extremities Neuro patient moves all 4 extremities, sensation is intact bilaterally - Urinary Catheter Management Indwelling Urethral Catheter Cath placed during this visit: yes Reason for continuing: Hourly intake/output Insertion date: 05/20/18 Insertion time: 06:00 Results - Labs CBC & Chem 7: 06/04/18 13:36 06/04/18 02:36 Laboratory Results - last 24 hr 06/03/18 06/03/18 06/03/18 06:45 16:12 22:07 WBC RBC Hgb Hct MCV MCH MCHC RDW Plt Count MPV Creatinine Estimated GFR POC Glucose 155 H 179 H Hemoglobin A1c 6.9 H 06/04/18 06/04/18 06/04/18 00:50 02:36 02:36 WBC RBC Hgb 9.9 L Hct 28.8 L MCV MCH MCHC RDW Plt Count MPV Creatinine 1.00 Estimated GFR 55 L POC Glucose 159 H Hemoglobin A1c 06/04/18 06/04/18 06/04/18 04:49 12:31 13:36 WBC 10.8 RBC 3.32 L Hgb 10.0 L Hct 30.4 L MCV 91.4 MCH 30.1 MCHC 33.0 RDW 15.7 Plt Count 198 MPV 8.6 Creatinine Estimated GFR POC Glucose 126 H 91 Hemoglobin A1c Microbiology 05/29/18 04:40 Blood - Peripheral Aerobic Blood Culture - Final No growth in 5 days 05/29/18 04:40 Blood - Peripheral Anaerobic Blood Culture - Final No growth in 5 days 05/29/18 04:40 Blood - Peripheral Aerobic Blood Culture - Final No growth in 5 days 05/29/18 04:40 Blood - Peripheral Anaerobic Blood Culture - Final No growth in 5 days - Procedures central line placement. Assessment and Plan - Plan This patient is a 68-year-old female from a intermediate facility. She has a history of hypertension dyslipidemia and pulmonary embolus and was on Xarelto. She was brought into our emergency department after she was found to have systolic blood pressure in the 60s and was having dark colored stools. 1. Hemorrhagic shock secondary to GI bleed resolved No drop in the patient's hemoglobin. Hemoglobin is 10 today. Anticoagulant and aspirin have been held because of the GI bleed as per surgery recommendations. Blood pressure is stable. EGD and colonoscopy were done which showed severe erythematous gastritis as well as findings consistent with ischemic colitis Continue Protonix drip. Surgery co-following, recommends non-operative management at this point. Will continue to follow recommendations from GI and surgery. I had a discussion with the patient's daughter over the phone yesterday who was concerned about the mother's placement after she is discharged. The patient is currently homeless and will need SNF placement after discharge. 2. Ischemic colitis Continue IV antibiotics. Surgery is recommending nonoperative management at this point. We will continue to follow their recommendations. 3. Acute hypoxic respiratory failure secondary to COPD exacerbation Continue breathing treatments and supplemental oxygen as needed to keep O2 saturation greater than 90% Patient is currently on 2 L of supplemental oxygen with an O2 saturation of 96 % . Will be continue to titrate the patient off of supplemental oxygen. Incentive spirometry Continue to follow recommendations from pulmonary team. 4. Anxiety disorder Xanax will be held for today as the patient appears slightly more drowsy than she did yesterday. She is still alert and oriented x3 responding to my questions and commands appropriately. We will continue to monitor the patient if she begins to feel anxious again we will restart her on Xanax at a lower dose. 5. Peripheral neuropathy Continue gabapentin 6. Dyslipidemia Continue statin 7. Acute kidney injury likely secondary to hypovolemia from hemorrhagic shock Acute kidney injury has resolved patient's serum creatinine is now normal. 8. Hyperglycemia Patient was consistently hyperglycemic yesterday. Continue low-dose insulin sliding scale. The patient was started on Lantus last night and her blood sugars are now better controlled. Will follow up the hemoglobin A1c. Protonix for GI prophylaxis, no pharmacotherapy for DVT prophylaxis as the patient had a GI bleed. Continue PT. Patient will likely need continued rehab after she is medically stable.
[2018-06-04] MEDS ORDERED: Piperacil/Tazo 4.5 GM Premix 4.5 GM/100 ML BAG IV.SIG SCH (21:00)
[2018-06-05] MEDS: Insulin NovoLOG Aspart Correctional Sugar Inj SQ SCH ×8 (01:49→23:37)
[2018-06-05] MEDS: Mupirocin 2% Nasal Oint Topical Syringe EACH NARE SCH ×3 (05:11→20:50)
[2018-06-05] MEDS: Chlorhexidine 0.12% Oral Kit 15 ML UDC OROPHARYNG SCH ×3 (05:11→21:02)
[2018-06-05] MEDS: Insulin Detemir Inj 1,000 UNIT/10 ML Vial SQ SCH ×2 (05:12→20:50)
[2018-06-05] MEDS: Carvedilol 12.5 MG Tablet PO SCH ×3 (05:12→20:52)
[2018-06-05] MEDS: Melatonin 5 MG Tablet PO SCH (05:12)
[2018-06-05] MEDS: Pantoprazole Inj 40 MG Vial IV.PUSH SCH ×3 (05:13→20:51)
[2018-06-05] MEDS: Senna/Docusate Sodium 8.6/50 MG Tablet PO SCH ×3 (05:13→20:50)
[2018-06-05 06:04] LABS: Baso % (Auto) 0.1 % (0.0-2.0); Eos # (Auto) 0.1 th/mm3 (0.0-0.4); Eos % (Auto) 0.8 % (0.0-4.0); Hemoglobin 8.7 gm/dL (11.6-15.3); Lymph # (Auto) 0.8 th/mm3 (1.0-4.8); Lymph % (Auto) 7.4 % (9.0-44.0); Mean Corpuscular HGB Conc 33.4 % (32.0-36.0); Mean Corpuscular Volume 89.7 fL (80.0-100.0); Mean Platelet Volume 8.6 fL (7.0-11.0); Mono # (Auto) 1.1 th/mm3 (0.0-0.9); Mono % (Auto) 9.4 % (0.0-8.0); Neut # (Auto) 9.4 th/mm3 (1.8-7.7); Neut % (Auto) 82.3 % (16.0-70.0); Platelet Count 186 th/mm3 (150-450); Red Cell Distribution Width 15.5 % (11.6-17.2); White Blood Count 11.4 th/mm3 (4.0-11.0)
[2018-06-05 06:26] LABS: Calcium 7.5 mg/dL (8.5-10.1); Carbon Dioxide 33.8 meq/L (21.0-32.0); Potassium 3.7 meq/L (3.5-5.1)
[2018-06-05] MEDS: Polyvinyl Alcohol/Povidone PF Opth Drops 0.4 ML Dropperette EACH EYE SCH ×3 (07:55→21:02)
[2018-06-05] MEDS: Piperacil/Tazo 3.375 GM Premix 50 ML IV.SIG SCH ×5 (07:55→20:58)
[2018-06-05] MEDS: Budesonide-Formoterol 160/4.5 MCG 6 GM Inhaler INH SCH ×3 (07:55→20:57)
[2018-06-05] MEDS: Oral Hygiene Kit OROPHARYNG SCH ×4 (07:57→16:17)
[2018-06-05] MEDS: Vancomycin Inj 1,500 MG in Sodium Chlor 0.9% Inj 500 ML IV.SIG SCH ×2 (07:57→23:38)
[2018-06-05] MEDS: Gabapentin 100 MG Capsule PO SCH ×3 (08:11→17:07)
[2018-06-05] MEDS: Lisinopril 10 MG Tablet PO SCH (08:12)
[2018-06-05] MEDS: amLODIPine 10 MG Tablet PO SCH (08:13)
[2018-06-05] MEDS: traZODone 50 MG Tablet PO SCH (08:13)
[2018-06-05] MEDS: Lactic Acid (Ammonium Lactate) 12% Lotion 225 GM Bottle TOPICAL SCH (08:13)
[2018-06-05] MEDS: Acetaminophen 325 MG Tablet PO PRN ×2 (08:15→16:18)
--- NOTE | 2018-06-05 17:46 | P.PNIM ---
Subjective Interval history: The patient is awake and alert today. Normal conversation with me and smiling. She appears comfortable. Physical Exam Vital signs: Vital Signs 06/04/18 18:00 06/04/18 18:01 06/04/18 19:00 Temperature Pulse Rate 67 66 76 Respiratory Rate 22 20 22 Blood Pressure 131/58 L 138/63 Pulse Oximetry 98 98 96 06/04/18 20:00 06/04/18 21:00 06/04/18 21:25 Temperature Pulse Rate 74 73 Respiratory Rate 16 18 Blood Pressure 134/61 124/58 L Pulse Oximetry 91 L 95 97 06/04/18 22:00 06/04/18 23:00 06/05/18 00:00 Temperature 97.9 F Pulse Rate 75 83 79 Respiratory Rate 18 17 21 Blood Pressure 116/59 L 127/61 125/62 Pulse Oximetry 97 95 95 06/05/18 01:00 06/05/18 02:00 06/05/18 03:00 Temperature Pulse Rate 78 77 77 Respiratory Rate 24 23 24 Blood Pressure 130/60 129/69 121/56 L Pulse Oximetry 95 97 95 06/05/18 04:00 06/05/18 05:00 06/05/18 05:50 Temperature 98.4 F Pulse Rate 76 80 79 Respiratory Rate 25 H 26 H 22 Blood Pressure 128/60 129/63 Pulse Oximetry 95 96 06/05/18 06:00 06/05/18 07:00 06/05/18 08:00 Temperature 101.2 F H Pulse Rate 78 81 76 Respiratory Rate 22 19 22 Blood Pressure 117/56 L 109/56 L 106/55 L Pulse Oximetry 97 95 97 06/05/18 09:00 06/05/18 10:00 06/05/18 11:00 Temperature Pulse Rate 72 69 66 Respiratory Rate 21 21 21 Blood Pressure 95/51 L 96/55 L 92/53 L Pulse Oximetry 96 96 95 06/05/18 12:00 06/05/18 13:00 06/05/18 14:00 Temperature 100.3 F H Pulse Rate 68 63 70 Respiratory Rate 22 21 21 Blood Pressure 95/52 L 90/52 L 95/51 L Pulse Oximetry 97 95 97 06/05/18 15:00 06/05/18 16:00 Temperature 99.4 F Pulse Rate 69 64 Respiratory Rate 18 20 Blood Pressure 103/51 L 92/49 L Pulse Oximetry 97 94 L Intake & Output 06/04/18 06/05/18 06/05/18 18:59 06:59 18:59 Intake Total 1660 / 1660 500 / 500 715 / 715 Output Total 400 / 400 Balance 1660 / 1660 100 / 100 715 / 715 Weight 111 kg Intake: IV 1180 / 1180 715 / 715 Zosyn 3.375 GM Premix 50 ML @ 150 / 150 200 / 200 200 mls/hr IV.SIG Q6H ANNE Rx#: [id number] Vancomycin Inj 1,500 MG In NS 1030 / 1030 515 / 515 Inj 500 ML @ 250 mls/hr IV.SIG Q18H ANNE Rx#:[id number] Oral 480 / 480 150 / 150 Other 350 / 350 Output: Urine 400 / 400 Other: # Voids 4 Date of Last Bowel Movement 06/04/18 06/05/18 06/05/18 # Bowel Movements 1 1 Narrative: General patient in no acute distress, nasal cannula in place, patient appears more awake than she did yesterday. She is responding to all my questions and commands appropriately she appears comfortable and was smiling on my physical examination during our conversation. HEENT extraocular movements are intact, clear oropharyngeal mucosa Cardiovascular S1-S2 audible Respiratory clear to auscultation bilaterally Abdomen soft, nontender, nondistended. Bowel sounds present.. Extremities no edema 2+ distal pulses in bilateral upper and lower extremities Neuro sensation is intact bilaterally. The patient is weak in all 4 of her extremities however is able to move them. - Urinary Catheter Management Indwelling Urethral Catheter Cath placed during this visit: yes Reason for continuing: Hourly intake/output Insertion date: 05/20/18 Insertion time: 06:00 Results - Labs CBC & Chem 7: 06/05/18 05:31 06/05/18 05:31 Laboratory Results - last 24 hr 06/04/18 06/04/18 06/05/18 17:39 20:44 01:32 WBC RBC Hgb Hct MCV MCH MCHC RDW Plt Count MPV Neut % (Auto) Lymph % (Auto) [place] % (Auto) Eos % (Auto) Baso % (Auto) Neut # (Auto) Lymph # (Auto) [place] # (Auto) Eos # (Auto) Baso # (Auto) WBC Differential Differential Comment Sodium Potassium Chloride Carbon Dioxide Anion Gap BUN Creatinine Estimated GFR POC Glucose 96 103 229 H Random Glucose Calcium 06/05/18 06/05/18 06/05/18 05:31 05:31 06:21 WBC 11.4 H RBC 2.90 L Hgb 8.7 L Hct 26.0 L MCV 89.7 MCH 30.0 MCHC 33.4 RDW 15.5 Plt Count 186 MPV 8.6 Neut % (Auto) 82.3 H Lymph % (Auto) 7.4 L [place] % (Auto) 9.4 H Eos % (Auto) 0.8 Baso % (Auto) 0.1 Neut # (Auto) 9.4 H Lymph # (Auto) 0.8 L [place] # (Auto) 1.1 H Eos # (Auto) 0.1 Baso # (Auto) 0.0 WBC Differential . Differential Comment Auto diff final Sodium 145 Potassium 3.7 Chloride 105 Carbon Dioxide 33.8 H Anion Gap 6 BUN 11 Creatinine 1.02 H Estimated GFR 54 L POC Glucose 164 H Random Glucose 136 H Calcium 7.5 L D 06/05/18 06/05/18 11:22 15:35 WBC RBC Hgb Hct MCV MCH MCHC RDW Plt Count MPV Neut % (Auto) Lymph % (Auto) [place] % (Auto) Eos % (Auto) Baso % (Auto) Neut # (Auto) Lymph # (Auto) [place] # (Auto) Eos # (Auto) Baso # (Auto) WBC Differential Differential Comment Sodium Potassium Chloride Carbon Dioxide Anion Gap BUN Creatinine Estimated GFR POC Glucose 125 H 112 H Random Glucose Calcium - Procedures central line placement. Assessment and Plan - Plan This patient is a 68-year-old female from a [facility] facility. She has a history of hypertension dyslipidemia and pulmonary embolus and was on Xarelto. She was brought into our emergency department after she was found to have systolic blood pressure in the 60s and was having dark colored stools. Systemic inflammatory response syndrome The patient had a slight elevation in her WBC count and has had 2 fevers over the past 24 hours. She is currently on Zosyn and IV vancomycin a urinalysis, chest x-ray, and blood cultures were ordered. These will be followed up. The patient is already on broad-spectrum antibiotics and no change in antibiotics will be made at this time. Currently the patient does not have diarrhea. If she does begin to have diarrhea we will send stool studies for C. difficile. 1. Hemorrhagic shock secondary to GI bleed resolved Patient had a drop in hemoglobin to 8.7 today from 10. We will follow-up in a.m. hemoglobin. Anticoagulant and aspirin have been held because of the GI bleed as per surgery recommendations. Blood pressure in the low 100s on the monitor. No signs of GI bleeding now. EGD and colonoscopy were done which showed severe erythematous gastritis as well as findings consistent with ischemic colitis Continue Protonix drip. Surgery co-following, recommends non-operative management at this point. Will continue to follow recommendations from GI and surgery. I had a discussion with the patient's daughter over the phone 2 days ago who was concerned about the mother's placement after she is discharged. The patient is currently homeless and will need SNF placement after discharge. 2. Ischemic colitis Continue IV antibiotics. Surgery is recommending nonoperative management at this point. We will continue to follow their recommendations. 3. Acute hypoxic respiratory failure secondary to COPD exacerbation Continue breathing treatments and supplemental oxygen as needed to keep O2 saturation greater than 90% Patient is currently on 2 L of supplemental oxygen with an O2 saturation of 96 % . Will be continue to titrate the patient off of supplemental oxygen. Incentive spirometry Continue to follow recommendations from pulmonary team. 4. Anxiety disorder Xanax was held yesterday as the patient appeared to be drowsy on my examination yesterday. Today she is awake alert and oriented x3. She is responding to all my questions and commands appropriately. I advised the patient to participate in physical therapy as the documentation states that the patient usually does not want to participate. She says she will make an attempt to participate in the physical therapy. This was also discussed at bedside with the patient's nurse. We will continue to encourage physical therapy. 5. Peripheral neuropathy Continue gabapentin 6. Dyslipidemia Continue statin 7. Acute kidney injury likely secondary to hypovolemia from hemorrhagic shock Acute kidney injury has resolved patient's serum creatinine is now normal. Follow-up a.m. renal panel. 8. Hyperglycemia Patient was consistently hyperglycemic yesterday. Continue low-dose insulin sliding scale. The patient was started on Lantus last night and her blood sugars are now better controlled. Will follow up the hemoglobin A1c. Protonix for GI prophylaxis, no pharmacotherapy for DVT prophylaxis as the patient had a GI bleed. Continue PT patient was encouraged to participate in the physical therapy.. Patient will likely need continued rehab after she is medically stable. CODE STATUS the patient is currently alert and oriented x3. I had a CODE STATUS discussion with the patient and her overall condition. She states that this time she would like us to do everything possible to keep her alive if she were to undergo cardiopulmonary arrest. Again the patient is alert and oriented x3 and responding to all my questions and commands appropriately.
--- NOTE | 2018-06-05 21:03 | XR ---
EXAM DATE: 06/05/2018 12:00 AM EDT AGE/SEX: 68 years / Female INDICATIONS: Cough and fever, concern for pneumonia and left sided chest pain. CLINICAL DATA: This is the patient's initial encounter. Patient reports that signs and symptoms have been present for 1 week and indicates a pain score of 5/10. MEDICAL/SURGICAL HISTORY: Chronic obstructive pulmonary disease. Hypertension. Pulmonary embol i. Cholecystectomy. COMPARISON: [facility] – [place], CHEST 1V SINGLE AP, 05/31/2018. . FINDINGS: Small effusions and mild parenchymal consolidation seen at both lung bases, not significantly changed . No pneumothorax. Heart size stable, upper limits of normal. CONCLUSION: Mild parenchymal consolidation and small effusions at each lung base not significantly changed. Electronically signed by: Brando Yanez MD 06/05/2018 9:02 PM EDT
[2018-06-05] MEDS: Morphine Inj 4 MG/ML Vial IV.PUSH PRN (21:26)
[2018-06-06] MEDS: Oral Hygiene Kit OROPHARYNG SCH ×4 (00:24→19:37)
[2018-06-06] MEDS: Piperacil/Tazo 3.375 GM Premix 50 ML IV.SIG SCH ×4 (02:21→20:03)
[2018-06-06] MEDS: Insulin NovoLOG Aspart Correctional Sugar Inj SQ SCH ×5 (04:55→20:01)
[2018-06-06 05:29] LABS: Baso % (Auto) 0.2 % (0.0-2.0); Eos # (Auto) 0.1 th/mm3 (0.0-0.4); Eos % (Auto) 0.8 % (0.0-4.0); Hematocrit 26.4 % (35.0-46.0); Hemoglobin 8.8 gm/dL (11.6-15.3); Lymph # (Auto) 1.1 th/mm3 (1.0-4.8); Lymph % (Auto) 9.5 % (9.0-44.0); Mean Corpuscular HGB Conc 33.3 % (32.0-36.0); Mean Corpuscular Hemoglobin 29.6 pg (27.0-34.0); Mean Corpuscular Volume 89.1 fL (80.0-100.0); Mean Platelet Volume 8.8 fL (7.0-11.0); Mono % (Auto) 9.2 % (0.0-8.0); Neut % (Auto) 80.3 % (16.0-70.0); Platelet Count 183 th/mm3 (150-450); Red Blood Count 2.96 mil/mm3 (4.00-5.30); Red Cell Distribution Width 15.2 % (11.6-17.2); White Blood Count 11.2 th/mm3 (4.0-11.0)
[2018-06-06 05:45] LABS: Calcium 7.7 mg/dL (8.5-10.1); Carbon Dioxide 30.5 meq/L (21.0-32.0); Magnesium 1.9 mg/dL (1.5-2.5); Potassium 3.6 meq/L (3.5-5.1)
[2018-06-06 07:07] LABS: Bacteria,Urine Occasional /hpf; Bilirubin,Urine Negative (Negative); Clarity,Urine Clear (Clear); Color,Urine Yellow (Yellw/Straw); Glucose,Urine (UA) Negative (Negative); Hyaline Casts,Urine 1 /lpf (0-3); Leukocyte Esterase,Urine Trace (Negative); Nitrite,Urine Negative (Negative); Specific Gravity,Urine 1.018 (1.002-1.035); Squamous Epithelial Cell,Urine <1 /hpf (0-5)
[2018-06-06] MEDS: Chlorhexidine 0.12% Oral Kit 15 ML UDC OROPHARYNG SCH ×2 (09:05→20:02)
[2018-06-06] MEDS: Pantoprazole Inj 40 MG Vial IV.PUSH SCH ×2 (09:06→20:03)
[2018-06-06] MEDS: Mupirocin 2% Nasal Oint Topical Syringe EACH NARE SCH ×2 (09:06→20:02)
[2018-06-06] MEDS: Gabapentin 100 MG Capsule PO SCH ×3 (09:07→19:37)
[2018-06-06] MEDS: Lisinopril 10 MG Tablet PO SCH (09:07)
[2018-06-06] MEDS: traZODone 50 MG Tablet PO SCH (09:07)
[2018-06-06] MEDS: Senna/Docusate Sodium 8.6/50 MG Tablet PO SCH ×2 (09:07→20:03)
[2018-06-06] MEDS: amLODIPine 10 MG Tablet PO SCH (09:07)
[2018-06-06] MEDS: Polyvinyl Alcohol/Povidone PF Opth Drops 0.4 ML Dropperette EACH EYE SCH ×2 (09:10→20:03)
[2018-06-06] MEDS: Budesonide-Formoterol 160/4.5 MCG 6 GM Inhaler INH SCH ×2 (09:10→20:03)
[2018-06-06] MEDS: Lactic Acid (Ammonium Lactate) 12% Lotion 225 GM Bottle TOPICAL SCH (09:11)
[2018-06-06] MEDS: Carvedilol 12.5 MG Tablet PO SCH ×2 (09:11→20:02)
--- NOTE | 2018-06-06 11:34 | P.PNIM ---
Subjective Interval history: Patient is awake and alert. She does not appear to be in any acute distress she does not have any other complaints. Physical Exam Vital signs: Vital Signs 06/05/18 12:00 06/05/18 13:00 06/05/18 14:00 Temperature 100.3 F H Pulse Rate 68 63 70 Respiratory Rate 22 21 21 Blood Pressure 95/52 L 90/52 L 95/51 L Pulse Oximetry 97 95 97 06/05/18 15:00 06/05/18 16:00 06/05/18 17:00 Temperature 99.4 F Pulse Rate 69 64 64 Respiratory Rate 18 20 20 Blood Pressure 103/51 L 92/49 L 93/51 L Pulse Oximetry 97 94 L 95 06/05/18 18:00 06/05/18 19:00 06/05/18 20:00 Temperature 98.8 F Pulse Rate 64 74 75 Respiratory Rate 21 19 16 Blood Pressure 92/53 L 105/67 108/54 L Pulse Oximetry 95 93 L 93 L 06/05/18 21:00 06/05/18 21:01 06/05/18 22:00 Temperature Pulse Rate 76 74 72 Respiratory Rate 20 19 16 Blood Pressure 153/62 H 117/54 L Pulse Oximetry 94 L 93 L 96 06/05/18 23:00 06/05/18 23:34 06/06/18 00:00 Temperature 98.4 F Pulse Rate 81 72 70 Respiratory Rate 24 16 17 Blood Pressure 120/83 120/58 L Pulse Oximetry 91 L 92 L 100 06/06/18 01:00 06/06/18 02:00 06/06/18 03:00 Temperature Pulse Rate 69 70 71 Respiratory Rate 21 20 21 Blood Pressure 129/60 128/60 124/59 L Pulse Oximetry 92 L 95 95 06/06/18 04:00 06/06/18 04:26 06/06/18 05:00 Temperature 98.9 F Pulse Rate 74 74 73 Respiratory Rate 19 17 17 Blood Pressure 127/61 129/58 L Pulse Oximetry 95 100 06/06/18 08:58 Temperature Pulse Rate 79 Respiratory Rate 19 Blood Pressure Pulse Oximetry 94 L Intake & Output 06/05/18 06/06/18 06/06/18 18:59 06:59 18:59 Intake Total 1195 / 1195 615 / 615 Output Total 800 / 800 Balance 395 / 395 615 / 615 Intake: IV 715 / 715 615 / 615 Zosyn 3.375 GM Premix 50 ML @ 200 / 200 100 / 100 200 mls/hr IV.SIG Q6H ANNE Rx#: [id number] Vancomycin Inj 1,500 MG In NS 515 / 515 515 / 515 Inj 500 ML @ 250 mls/hr IV.SIG Q18H ANNE Rx#:[id number] Oral 480 / 480 Output: Urine 800 / 800 Other: # Voids 3 Date of Last Bowel Movement 06/05/18 06/05/18 06/05/18 # Bowel Movements 2 Narrative: General patient in no acute distress, nasal cannula in place, patient appears more awake than she did yesterday. She is responding to all my questions and commands appropriately she appears comfortable and was smiling on my physical examination during our conversation. She appears even more awake than my evaluation yesterday. She says that she did not like this morning's breakfast and is looking forward to lunch. HEENT extraocular movements are intact, clear oropharyngeal mucosa Cardiovascular S1-S2 audible Respiratory clear to auscultation bilaterally Abdomen soft, nontender, nondistended. Bowel sounds present.. Extremities no edema 2+ distal pulses in bilateral upper and lower extremities Neuro sensation is intact bilaterally. The patient is weak in all 4 of her extremities however is able to move them. - Urinary Catheter Management Indwelling Urethral Catheter Cath placed during this visit: yes Reason for continuing: Hourly intake/output Insertion date: 05/20/18 Insertion time: 06:00 Results - Labs CBC & Chem 7: 06/06/18 04:13 06/06/18 04:13 Laboratory Results - last 24 hr 06/05/18 06/05/18 06/05/18 15:35 20:44 23:29 WBC RBC Hgb Hct MCV MCH MCHC RDW Plt Count MPV Prelim Diff (Auto) Neut % (Auto) Lymph % (Auto) [place] % (Auto) Eos % (Auto) Baso % (Auto) Neut # (Auto) Lymph # (Auto) [place] # (Auto) Eos # (Auto) Baso # (Auto) WBC Differential Diff Scan Differential Comment Sodium Potassium Chloride Carbon Dioxide Anion Gap BUN Creatinine Estimated GFR POC Glucose 112 H 138 H 181 H Random Glucose Calcium Magnesium Urine Color Urine Clarity Urine pH Ur Specific [place] Urine Protein Urine Glucose (UA) Urine Ketones Urine Occult Blood Urine Nitrate Urine Bilirubin Urine Urobilinogen Ur Leukocyte Esterase Urine RBC Urine WBC Ur Squamous Epith Cells Urine Bacteria Hyaline Casts Urine Yeast Micro UA Comment Ur Microscopic Review Urine Culture Comments 06/06/18 06/06/18 06/06/18 04:13 04:13 04:22 WBC 11.2 H RBC 2.96 L Hgb 8.8 L Hct 26.4 L MCV 89.1 MCH 29.6 MCHC 33.3 RDW 15.2 Plt Count 183 MPV 8.8 Prelim Diff (Auto) Slide review pending Neut % (Auto) 80.3 H Lymph % (Auto) 9.5 [place] % (Auto) 9.2 H Eos % (Auto) 0.8 Baso % (Auto) 0.2 Neut # (Auto) 9.0 H Lymph # (Auto) 1.1 [place] # (Auto) 1.0 H Eos # (Auto) 0.1 Baso # (Auto) 0.0 WBC Differential . Diff Scan Auto diff confirmed Differential Comment . Sodium 143 Potassium 3.6 Chloride 105 Carbon Dioxide 30.5 Anion Gap 8 BUN 10 Creatinine 1.11 H Estimated GFR 49 L POC Glucose 112 H Random Glucose 108 H Calcium 7.7 L Magnesium 1.9 Urine Color Urine Clarity Urine pH Ur Specific [place] Urine Protein Urine Glucose (UA) Urine Ketones Urine Occult Blood Urine Nitrate Urine Bilirubin Urine Urobilinogen Ur Leukocyte Esterase Urine RBC Urine WBC Ur Squamous Epith Cells Urine Bacteria Hyaline Casts Urine Yeast Micro UA Comment Ur Microscopic Review Urine Culture Comments 06/06/18 06/06/18 06:15 09:03 WBC RBC Hgb Hct MCV MCH MCHC RDW Plt Count MPV Prelim Diff (Auto) Neut % (Auto) Lymph % (Auto) [place] % (Auto) Eos % (Auto) Baso % (Auto) Neut # (Auto) Lymph # (Auto) [place] # (Auto) Eos # (Auto) Baso # (Auto) WBC Differential Diff Scan Differential Comment Sodium Potassium Chloride Carbon Dioxide Anion Gap BUN Creatinine Estimated GFR POC Glucose 103 Random Glucose Calcium Magnesium Urine Color Yellow Urine Clarity Clear Urine pH 7.0 Ur Specific [place] 1.018 Urine Protein 30 H Urine Glucose (UA) Negative Urine Ketones Negative Urine Occult Blood Negative Urine Nitrate Negative Urine Bilirubin Negative Urine Urobilinogen Less than 2 Ur Leukocyte Esterase Trace H Urine RBC 2 Urine WBC 26 H Ur Squamous Epith Cells <1 Urine Bacteria Occasional H Hyaline Casts 1 Urine Yeast Moderate H Micro UA Comment Cath-culture ind Ur Microscopic Review Not Reportable Urine Culture Comments Cath-cult indicated Microbiology 06/05/18 19:50 Blood - Peripheral Aerobic Blood Culture - Preliminary No growth in 1 day 06/05/18 19:50 Blood - Peripheral Anaerobic Blood Culture - Preliminary No growth in 1 day 06/05/18 19:58 Blood - Peripheral Aerobic Blood Culture - Preliminary No growth in 1 day 06/05/18 19:58 Blood - Peripheral Anaerobic Blood Culture - Preliminary No growth in 1 day - Imaging Impressions Chest X-Ray 06/05/18 00:00 CONCLUSION: Mild parenchymal consolidation and small effusions at each lung base not significantly changed. - Procedures central line placement. Assessment and Plan - Plan This patient is a 68-year-old female from a assisted facility. She has a history of hypertension dyslipidemia and pulmonary embolus and was on Xarelto. She was brought into our emergency department after she was found to have systolic blood pressure in the 60s and was having dark colored stools. 1. Fungal UTI The patient had 2 fevers yesterday morning. A chest x-ray was done which did not show any significant change from previous chest x-rays. Similar opacities that we were already treating. Blood cultures are pending, urinalysis showed findings concerning for a fungal UTI. Will follow up on the urine culture. Fluconazole started today. If the patient does not continue to have fevers we will transition the patient from IV vancomycin and Zosyn to p.o. antibiotics. 2. Hemorrhagic shock secondary to GI bleed resolved No significant drop in the patient's hemoglobin from yesterday to today. Anticoagulant and aspirin have been held because of the GI bleed as per surgery recommendations. Will follow up with the surgery team to see how long they would like to hold antiplatelets and anticoagulation. Systolic blood pressure in the 130s today on the monitor. No signs of GI bleeding now. EGD and colonoscopy were done which showed severe erythematous gastritis as well as findings consistent with ischemic colitis Continue Protonix drip. Surgery co-following, recommends non-operative management at this point. I had a discussion with the patient's daughter over the phone 3 days ago who was concerned about the mother's placement after she is discharged. The patient is currently homeless and will need SNF placement after discharge. 2. Ischemic colitis Continue IV antibiotics. Surgery is recommending nonoperative management at this point. We will continue to follow their recommendations. If the patient remains afebrile tomorrow we will switch the patient to p.o. antibiotics. 3. Acute hypoxic respiratory failure secondary to COPD exacerbation Continue breathing treatments and supplemental oxygen as needed to keep O2 saturation greater than 90% Patient is currently on 2.5 L of supplemental oxygen with an O2 saturation of 95 %. Will be continue to titrate the patient off of supplemental oxygen. Incentive spirometry Continue to follow recommendations from pulmonary team. 4. Anxiety disorder Patient is awake and alert today. At this time I do not recommend restarting Xanax as she is a lot more active without the medication. Xanax was held yesterday as the patient appeared to be drowsy on my examination yesterday. Today she is awake alert and oriented x3. She is responding to all my questions and commands appropriately. I advised the patient to participate in physical therapy as the documentation states that the patient usually does not want to participate. We will continue to encourage physical therapy. 5. Peripheral neuropathy Continue gabapentin 6. Dyslipidemia Continue statin 7. Acute kidney injury likely secondary to hypovolemia from hemorrhagic shock Acute kidney injury has resolved patient's serum creatinine is now normal. Follow-up a.m. renal panel. 8. Hyperglycemia Patient was consistently hyperglycemic yesterday. Continue low-dose insulin sliding scale. The patient was started on Lantus last night and her blood sugars are now better controlled. Will follow up the hemoglobin A1c. Protonix for GI prophylaxis, no pharmacotherapy for DVT prophylaxis as the patient had a GI bleed. Continue PT patient was encouraged to participate in the physical therapy.. Patient will likely need continued rehab after she is medically stable. CODE STATUS the patient is currently alert and oriented x3. I had a CODE STATUS discussion with the patient and her overall condition. She states that this time she would like us to do everything possible to keep her alive if she were to undergo cardiopulmonary arrest. Again the patient is alert and oriented x3 and responding to all my questions and commands appropriately.
[2018-06-06] MEDS: Morphine Inj 4 MG/ML Vial IV.PUSH PRN (13:18)
[2018-06-06] MEDS: Sodium Chloride 0.45 % Inj 1,000 ML IV.CONT SCH (13:28)
[2018-06-06] MEDS ORDERED: Magnesium Sulfate Inj 2 GM in Sodium Chlor 0.9% Inj 96 ML IV.SIG ONE (14:00)
[2018-06-06] MEDS ORDERED: Pharmacy Ordered Lab Info OTHER ONE (17:45)
[2018-06-06] MEDS: Vancomycin Inj 1,500 MG in Sodium Chlor 0.9% Inj 500 ML IV.SIG SCH (19:37)
[2018-06-06] MEDS: Insulin Detemir Inj 1,000 UNIT/10 ML Vial SQ SCH (20:02)
[2018-06-07] MEDS: Sodium Chloride 0.45 % Inj 1,000 ML IV.CONT SCH ×2 (00:21→11:09)
[2018-06-07] MEDS: Oral Hygiene Kit OROPHARYNG SCH ×4 (00:22→16:19)
[2018-06-07] MEDS: Insulin NovoLOG Aspart Correctional Sugar Inj SQ SCH ×6 (00:22→19:56)
[2018-06-07] MEDS: Morphine Inj 4 MG/ML Vial IV.PUSH PRN ×3 (02:58→20:30)
[2018-06-07] MEDS: Piperacil/Tazo 3.375 GM Premix 50 ML IV.SIG SCH ×2 (03:01→09:06)
[2018-06-07] MEDS: Chlorhexidine 0.12% Oral Kit 15 ML UDC OROPHARYNG SCH ×2 (09:01→19:56)
[2018-06-07] MEDS: Mupirocin 2% Nasal Oint Topical Syringe EACH NARE SCH ×2 (09:05→20:05)
[2018-06-07] MEDS: Pantoprazole Inj 40 MG Vial IV.PUSH SCH ×2 (09:05→20:04)
[2018-06-07] MEDS: Gabapentin 100 MG Capsule PO SCH ×3 (09:07→17:17)
[2018-06-07] MEDS: traZODone 50 MG Tablet PO SCH (09:07)
[2018-06-07] MEDS: Carvedilol 12.5 MG Tablet PO SCH ×2 (09:07→20:04)
[2018-06-07] MEDS: Senna/Docusate Sodium 8.6/50 MG Tablet PO SCH ×2 (09:07→20:05)
[2018-06-07] MEDS: Lisinopril 10 MG Tablet PO SCH (09:07)
[2018-06-07] MEDS: Polyvinyl Alcohol/Povidone PF Opth Drops 0.4 ML Dropperette EACH EYE SCH ×2 (09:08→20:05)
[2018-06-07] MEDS: Budesonide-Formoterol 160/4.5 MCG 6 GM Inhaler INH SCH ×2 (09:08→20:04)
[2018-06-07] MEDS: amLODIPine 10 MG Tablet PO SCH (09:08)
[2018-06-07] MEDS: Lactic Acid (Ammonium Lactate) 12% Lotion 225 GM Bottle TOPICAL SCH (09:08)
--- NOTE | 2018-06-07 10:53 | P.PNIM ---
Subjective Interval history: Patient complaining of some shortness of breath. She is able to speak in full sentences. Physical Exam Vital signs: Vital Signs 06/06/18 12:00 06/06/18 14:00 06/06/18 15:31 Temperature 98.9 F Pulse Rate 69 71 74 Respiratory Rate 16 23 Blood Pressure 115/56 L Pulse Oximetry 94 L 06/06/18 16:00 06/06/18 18:00 06/06/18 19:00 Temperature 99.3 F Pulse Rate 74 75 Respiratory Rate 20 Blood Pressure 121/57 L Pulse Oximetry 100 93 L 06/06/18 20:00 06/06/18 21:43 06/06/18 22:00 Temperature 98.4 F Pulse Rate 82 72 70 Respiratory Rate 22 24 Blood Pressure 134/60 Pulse Oximetry 93 L 93 L 06/07/18 00:00 06/07/18 02:00 06/07/18 03:18 Temperature 98.6 F Pulse Rate 71 75 73 Respiratory Rate 20 20 Blood Pressure 97/54 L Pulse Oximetry 93 L 06/07/18 04:00 06/07/18 06:00 06/07/18 07:00 Temperature 98.9 F Pulse Rate 69 66 Respiratory Rate 17 Blood Pressure 110/57 L Pulse Oximetry 93 L 96 06/07/18 08:00 06/07/18 10:00 Temperature 98.7 F Pulse Rate 71 37 L Respiratory Rate 17 Blood Pressure 106/54 L Pulse Oximetry 93 L Intake & Output 06/06/18 06/07/18 06/07/18 18:59 06:59 18:59 Intake Total 650 / 650 1865 / 1865 Output Total 1000 / 1000 700 / 700 Balance -350 / -350 1165 / 1165 Weight 96 kg Intake: IV 50 / 50 1865 / 1865 1/2 Normal Saline Inj 1,000 ML 1000 / 1000 @ 84 mls/hr IV.CONT .[id number] ANNE Rx#:[id number] Diflucan 200 mg Premix Bag 100 100 / 100 ML @ 100 mls/hr IV.SIG Q24H ANNE Rx#:[id number] Magnesium Sulfate Inj 2 GM In 100 / 100 NS Inj 96 ML @ 50 mls/hr IV.SIG ONCE ONE Rx#:[id number] Zosyn 3.375 GM Premix 50 ML @ 50 / 50 150 / 150 200 mls/hr IV.SIG Q6H NANE Rx#: [id number] Vancomycin Inj 1,500 MG In NS 515 / 515 Inj 500 ML @ 250 mls/hr IV.SIG Q18H ANNE Rx#:[id number] Oral 600 / 600 Output: Urine 1000 / 1000 700 / 700 Other: Date of Last Bowel Movement 06/06/18 06/07/18 06/07/18 # Bowel Movements 1 1 Narrative: General patient in mild distress, complaining of shortness of breath. Wheezing on physical examination. She is able to speak in full sentences. HEENT extraocular movements are intact, clear oropharyngeal mucosa Cardiovascular S1-S2 audible Respiratory wheezing auscultated bilaterally. Abdomen soft, nontender, nondistended. Bowel sounds present.. Extremities no edema 2+ distal pulses in bilateral upper and lower extremities Neuro sensation is intact bilaterally. The patient is weak in all 4 of her extremities however is able to move them. - Urinary Catheter Management Indwelling Urethral Catheter Cath placed during this visit: yes Reason for continuing: Hourly intake/output Insertion date: 05/20/18 Insertion time: 06:00 Results - Labs CBC & Chem 7: 06/06/18 04:13 06/07/18 03:39 Laboratory Results - last 24 hr 06/06/18 06/06/18 06/06/18 13:21 15:45 20:01 Creatinine Estimated GFR POC Glucose 96 88 79 06/07/18 06/07/18 06/07/18 00:20 03:03 03:39 Creatinine 1.43 H Estimated GFR 36 L POC Glucose 171 H 188 H 06/07/18 09:03 Creatinine Estimated GFR POC Glucose 130 H Microbiology 06/05/18 19:50 Blood - Peripheral Aerobic Blood Culture - Preliminary No growth in 1 day 06/05/18 19:50 Blood - Peripheral Anaerobic Blood Culture - Preliminary No growth in 1 day 06/05/18 19:58 Blood - Peripheral Aerobic Blood Culture - Preliminary No growth in 1 day 06/05/18 19:58 Blood - Peripheral Anaerobic Blood Culture - Preliminary No growth in 1 day - Procedures central line placement. Assessment and Plan - Plan This patient is a 68-year-old female from a [facility] facility. She has a history of hypertension dyslipidemia and pulmonary embolus and was on Xarelto. She was brought into our emergency department after she was found to have systolic blood pressure in the 60s and was having dark colored stools. 1. Fungal UTI The patient had 2 fevers 2 days ago. A chest x-ray was done which did not show any significant change from previous chest x-rays. Similar opacities that we were already treating. Blood cultures are pending, urinalysis showed findings concerning for a fungal UTI. Will follow up on the urine culture. Fluconazole started yesterday. Patient had an increase in her serum creatinine today, the dose of fluconazole was renally adjusted. 2. Acute kidney injury possibly prerenal and medication induced. Patient does not have a very good p.o. appetite. IV fluids switched to normal saline. We will follow-up a a.m. renal panel Lisinopril was held. If the patient's blood pressure continues to rise we will adjust her blood pressure medications. 2. Hemorrhagic shock secondary to GI bleed resolved No significant drop in the patient's hemoglobin from yesterday to today. Anticoagulant and aspirin have been held because of the GI bleed as per surgery recommendations. Will follow up with the surgery team to see how long they would like to hold antiplatelets and anticoagulation. Systolic blood pressure in the 120s today on the monitor. No signs of GI bleeding now. EGD and colonoscopy were done which showed severe erythematous gastritis as well as findings consistent with ischemic colitis Continue Protonix drip. Surgery recommending nonoperative management. 2. Ischemic colitis Continue IV antibiotics. Surgery is recommending nonoperative management at this point. We will continue to follow their recommendations. Antibiotics were stopped. If the patient spikes fevers consider restarting antibiotics. 3. Acute hypoxic respiratory failure secondary to COPD exacerbation On my examination the patient was complaining of some shortness of breath. Monitor showed an O2 saturation in the high 80s. Auscultation shows wheezing bilaterally. I discussed the case with the respiratory therapist. She will be given DuoNeb treatments around the clock for the next 24 hours. If she shows improvement and they can be changed to as needed treatments. BiPAP will also be given intermittently. Continue supplemental oxygen as needed. Incentive spirometry Continue to follow recommendations from pulmonary team. 4. Anxiety disorder Patient is awake and alert today. At this time I do not recommend restarting Xanax as she is a lot more active without the medication. Xanax was held and the patient appears much more awake without the medication. 5. Peripheral neuropathy Continue gabapentin 6. Dyslipidemia Continue statin 7. Hyperglycemia Patient was consistently hyperglycemic yesterday. Continue low-dose insulin sliding scale. The patient was started on Lantus last night and her blood sugars are now better controlled. Will follow up the hemoglobin A1c. Protonix for GI prophylaxis, no pharmacotherapy for DVT prophylaxis as the patient had a GI bleed. Continue PT patient was encouraged to participate in the physical therapy.. Patient will likely need continued rehab after she is medically stable. CODE STATUS the patient is currently alert and oriented x3. I had a CODE STATUS discussion with the patient and her overall condition. She states that this time she would like us to do everything possible to keep her alive if she were to undergo cardiopulmonary arrest. Again the patient is alert and oriented x3 and responding to all my questions and commands appropriately.
[2018-06-07] MEDS ORDERED: Pharmacy Ordered Lab Info OTHER ONE (11:45)
[2018-06-07] MEDS: Sod Chloride 0.9% Inj 1,000 ML IV.CONT SCH (13:18)
[2018-06-07 14:40] LABS: Calcium 5.4 mg/dL (8.5-10.1); Carbon Dioxide 31.7 meq/L (21.0-32.0); Potassium 3.8 meq/L (3.5-5.1)
[2018-06-07 14:59] LABS: Total Protein 0.4 g/dL (6.4-8.2)
[2018-06-07] MEDS: Insulin Detemir Inj 1,000 UNIT/10 ML Vial SQ SCH (20:05)
[2018-06-08] MEDS: Oral Hygiene Kit OROPHARYNG SCH ×4 (00:11→16:44)
[2018-06-08] MEDS: Insulin NovoLOG Aspart Correctional Sugar Inj SQ SCH ×6 (00:25→21:25)
[2018-06-08] MEDS: Sod Chloride 0.9% Inj 1,000 ML IV.CONT SCH ×2 (01:52→12:17)
[2018-06-08] MEDS: Sodium Chloride 0.45 % Inj 1,000 ML IV.CONT SCH ×3 (01:53→21:22)
[2018-06-08] MEDS: Morphine Inj 4 MG/ML Vial IV.PUSH PRN ×3 (05:20→20:11)
[2018-06-08 06:24] LABS: Calcium 7.9 mg/dL (8.5-10.1); Magnesium 2.2 mg/dL (1.5-2.5); Potassium 3.8 meq/L (3.5-5.1)
[2018-06-08] MEDS: traZODone 50 MG Tablet PO SCH (08:18)
[2018-06-08] MEDS: Senna/Docusate Sodium 8.6/50 MG Tablet PO SCH ×2 (08:18→20:10)
[2018-06-08] MEDS: Gabapentin 100 MG Capsule PO SCH ×3 (08:18→17:54)
[2018-06-08] MEDS: Mupirocin 2% Nasal Oint Topical Syringe EACH NARE SCH ×2 (08:18→20:09)
[2018-06-08] MEDS: Carvedilol 12.5 MG Tablet PO SCH ×2 (08:18→20:09)
[2018-06-08] MEDS: amLODIPine 10 MG Tablet PO SCH (08:18)
[2018-06-08] MEDS: Budesonide-Formoterol 160/4.5 MCG 6 GM Inhaler INH SCH ×2 (08:19→20:10)
[2018-06-08] MEDS: Pantoprazole Inj 40 MG Vial IV.PUSH SCH ×2 (08:19→20:10)
[2018-06-08] MEDS: Lactic Acid (Ammonium Lactate) 12% Lotion 225 GM Bottle TOPICAL SCH (08:20)
[2018-06-08] MEDS: Chlorhexidine 0.12% Oral Kit 15 ML UDC OROPHARYNG SCH ×2 (08:22→21:25)
[2018-06-08] MEDS: Polyvinyl Alcohol/Povidone PF Opth Drops 0.4 ML Dropperette EACH EYE SCH ×2 (08:22→21:26)
--- NOTE | 2018-06-08 11:23 | P.PN ---
Subjective Interval history: This is a pleasant 68 y/o Female who was brought in from [facility], has Hypertension, Hyperlipidemia, PE on Xarelto She was brought into our emergency department after she was found to have systolic blood pressure in the 60s and was having dark colored stools. 06/08: Seen in her bedroom continue with Shortness of breath, swollen legs, increased Creatinine level to 2.1 asked for Nephrology specialist following, no nausea, vomit or diarrhea. Physical Exam Vital signs: Vital Signs 06/07/18 12:00 06/07/18 13:00 06/07/18 14:00 Temperature 98.6 F Pulse Rate 63 63 65 Respiratory Rate 16 16 18 Blood Pressure 101/51 L 105/52 L 111/51 L Pulse Oximetry 98 100 100 06/07/18 15:00 06/07/18 15:37 06/07/18 16:00 Temperature 99 F Pulse Rate 65 67 64 Respiratory Rate 19 16 15 Blood Pressure 92/53 L 93/52 L Pulse Oximetry 100 99 06/07/18 17:00 06/07/18 17:46 06/07/18 18:00 Temperature Pulse Rate 64 63 63 Respiratory Rate 14 19 14 Blood Pressure 96/55 L 106/54 L Pulse Oximetry 98 100 06/07/18 19:00 06/07/18 20:00 06/07/18 20:28 Temperature 99.4 F Pulse Rate 62 66 68 Respiratory Rate 15 14 20 Blood Pressure 116/55 L 109/53 L Pulse Oximetry 100 97 97 06/07/18 20:36 06/07/18 21:00 06/07/18 22:00 Temperature Pulse Rate 62 61 Respiratory Rate 18 13 13 Blood Pressure 113/53 L 108/51 L Pulse Oximetry 100 100 06/07/18 23:00 06/08/18 00:00 06/08/18 00:27 Temperature 98.5 F Pulse Rate 62 61 67 Respiratory Rate 13 12 20 Blood Pressure 108/52 L 109/55 L Pulse Oximetry 96 98 06/08/18 01:00 06/08/18 02:00 06/08/18 02:01 Temperature Pulse Rate 61 65 66 Respiratory Rate 13 13 13 Blood Pressure 110/55 L 127/56 L Pulse Oximetry 99 95 95 06/08/18 03:00 06/08/18 03:12 06/08/18 04:00 Temperature 98.6 F Pulse Rate 64 75 72 Respiratory Rate 14 16 15 Blood Pressure 113/56 L 117/56 L Pulse Oximetry 99 95 06/08/18 05:00 06/08/18 06:00 06/08/18 07:00 Temperature Pulse Rate 78 68 69 Respiratory Rate 19 15 14 Blood Pressure 122/90 108/55 L 113/58 L Pulse Oximetry 92 L 97 96 06/08/18 07:46 06/08/18 08:00 06/08/18 09:00 Temperature 98.9 F Pulse Rate 73 77 Respiratory Rate 15 17 Blood Pressure 108/55 L 112/57 L Pulse Oximetry 95 100 92 L 06/08/18 10:00 Temperature Pulse Rate 75 Respiratory Rate 14 Blood Pressure 113/57 L Pulse Oximetry 96 Intake & Output 06/07/18 06/08/18 06/08/18 18:59 06:59 18:59 Intake Total 1480 / 1480 1360 / 1360 Output Total 800 / 800 Balance 680 / 680 1360 / 1360 Weight 96.8 kg Intake: IV 1000 / 1000 1000 / 1000 NS Inj 1,000 ML @ 84 mls/hr IV. 1000 / 1000 CONT .[id number] ANNE Rx#:[id number] 1/2 Normal Saline Inj 1,000 ML 1000 / 1000 @ 84 mls/hr IV.CONT .[id number] ANNE Rx#:[id number] Oral 480 / 480 360 / 360 Output: Urine 800 / 800 Other: # Incontinent Voids 1 Date of Last Bowel Movement 06/07/18 06/07/18 06/07/18 # Bowel Movements 1 # Incontinent Bowel Movements 1 Narrative: General patient in mild distress, complaining of shortness of breath. Wheezing on physical examination. She is able to speak in full sentences. HEENT extraocular movements are intact, clear oropharyngeal mucosa Cardiovascular S1-S2 audible Respiratory wheezing auscultated bilaterally. Abdomen soft, nontender, nondistended. Bowel sounds present.. Extremities no edema 2+ distal pulses in bilateral upper and lower extremities Neuro sensation is intact bilaterally. The patient is weak in all 4 of her extremities however is able to move them. - Urinary Catheter Management Indwelling Urethral Catheter Cath placed during this visit: yes Reason for continuing: Hourly intake/output Insertion date: 05/20/18 Insertion time: 06:00 Results - Labs CBC & Chem 7: 06/09/18 05:52 10/09/18 13:41 Laboratory Results - last 24 hr 06/07/18 06/07/18 06/07/18 13:15 13:55 13:55 Sodium Cancelled 148 H Potassium Cancelled 3.8 Chloride Cancelled 113 H D Carbon Dioxide Cancelled 31.7 Anion Gap Cancelled 3 L BUN Cancelled 10 Creatinine Cancelled 1.47 H Estimated GFR Cancelled 35 L POC Glucose 116 H Random Glucose Cancelled 136 H Calcium Cancelled 5.4 L* D Prot Corrected Calcium 9.4 Magnesium 2.0 Total Protein 0.4 L 06/07/18 06/07/18 06/08/18 16:16 19:48 00:24 Sodium Potassium Chloride Carbon Dioxide Anion Gap BUN Creatinine Estimated GFR POC Glucose 121 H 99 88 Random Glucose Calcium Prot Corrected Calcium Magnesium Total Protein 06/08/18 06/08/18 06/08/18 03:19 04:08 04:26 Sodium 143 Potassium 3.8 Chloride 107 Carbon Dioxide 27.0 Anion Gap 9 BUN 10 Creatinine 2.10 H Estimated GFR 23 L POC Glucose 76 128 H Random Glucose 120 H Calcium 7.9 L D Prot Corrected Calcium Magnesium 2.2 Total Protein 06/08/18 08:25 Sodium Potassium Chloride Carbon Dioxide Anion Gap BUN Creatinine Estimated GFR POC Glucose 105 Random Glucose Calcium Prot Corrected Calcium Magnesium Total Protein Microbiology 06/05/18 19:50 Blood - Peripheral Aerobic Blood Culture - Preliminary No growth in 3 days 06/05/18 19:50 Blood - Peripheral Anaerobic Blood Culture - Preliminary No growth in 3 days 06/05/18 19:58 Blood - Peripheral Aerobic Blood Culture - Preliminary No growth in 3 days 06/05/18 19:58 Blood - Peripheral Anaerobic Blood Culture - Preliminary No growth in 3 days 06/06/18 06:15 Catheterized Urine Urine Culture - Preliminary Yeast - ID to follow - Procedures central line placement. Assessment and Plan - Plan This patient is a 68-year-old female from a group home facility. She has a history of hypertension dyslipidemia and pulmonary embolus and was on Xarelto. She was brought into our emergency department after she was found to have systolic blood pressure in the 60s and was having dark colored stools. 1. Fungal UTI Blood cultures are pending, urinalysis showed findings concerning for a fungal UTI. Will follow up on the urine culture. continue Fluconazole Patient had an increase in her serum creatinine today, the dose of fluconazole was renally adjusted. 2. Acute kidney injury possibly prerenal and medication induced. IV fluids switched to normal saline. Lisinopril held, today worsening to 2.1 asked for Nephrology specialist consult. 3. Hemorrhagic shock secondary to GI bleed resolved, ASA on Hold, No signs of GI bleeding now. EGD and colonoscopy were done which showed severe erythematous gastritis as well as findings consistent with ischemic colitis Continue Protonix drip. Surgery recommending nonoperative management. 4. Ischemic colitis to continue IV antibiotics, Non operative management by Surgical team. 5. Acute hypoxic respiratory failure secondary to COPD exacerbation, Continue Bronchodilator, Mucolytic incentive spirometry BiPAP as needed, Oxygen as needed. relocation services specialist following. 6. Anxiety disorder, Benzodiazepines, 7. Peripheral neuropathy Continue gabapentin 8. Dyslipidemia Continue statin 9. Obesity strongly recommended diet and exercise as outpatient. Protonix for GI prophylaxis, no pharmacotherapy for DVT prophylaxis as the patient had a GI bleed. Continue PT patient was encouraged to participate in the physical therapy.. Patient will likely need continued rehab after she is medically stable. Poor retirement prognosis. Code Status: Full code. Discussed Condition With: patient and nurse Miss Saldana Discharge Planning: Not yet clear for discharge.
--- NOTE | 2018-06-08 16:10 | P.CONNP ---
History of Present Illness Service: Nephrology Consult date: 06/08/18 Requesting Physician: Abdi Botello Reason for Consult: Acute renal failure Primary Care Provider: Dakota Azevedo MD Chief Complaint: Acute change in status History of Present Illness: Patient is a 68-year-old white female with history of ischemic colitis, admitted with GI bleeding and underwent CTA on 05/27 however she did tolerated contrast without any problem and now for the past few days has hypertension, decreased perfusion pressure between the night of 06/06-06/07, and increasing creatinine since then now gone up to 2.1 with declining urine output patient is having third spacing and edema, patient has been treated for urinary tract infection, her blood pressure medication amlodipine was continued and patient is having low blood pressure, she was placed on half-normal saline at 84 cc an hour, kidney function did not improve and have been consulted patient is awake and feels tired has abdominal distention occasional nausea. Review of Systems Constitutional: Reports lack of energy Eyes: Denies blind spots, Denies blurry vision, Denies bulging eyes, Denies change in vision, Denies double vision, Denies discharge, Denies dry eyes, Denies floaters, Denies irritation, Denies itchy eyes, Denies loss of vision, Denies pain, Denies requires corrective lenses, Denies sensitivity to light, Denies other Ears, Nose, Mouth, and Throat: Denies abnormal hearing, Denies bleeding gums, Denies bad breath, Denies change in voice, Denies dental pain, Denies difficulty swallowing, Denies dizziness, Denies dry mouth, Denies ear discharge , Denies ear pain, Denies facial pain, Denies headache(s), Denies hearing loss, Denies hoarseness, Denies lip swelling, Denies nosebleed, Denies mouth lesions, Denies mouth pain, Denies nasal congestion, Denies nasal discharge, Denies nasal obstruction, Denies nasal trauma, Denies neck lump, Denies neck pain, Denies nose pain, Denies pain with swallowing, Denies poor balance, Denies post nasal drip, Denies ringing in the ears, Denies sinus pain, Denies sinus pressure , Denies sore throat, Denies throat swelling, Denies tongue swelling, Denies other Cardiovascular: Reports leg swelling Respiratory: Reports cough Gastrointestinal: Reports bloating, Reports nausea, Reports vomiting Genitourinary: Reports urinary incontinence Musculoskeletal: Reports muscle weakness Neurologic: Reports weakness Psychiatric: Reports other Endocrine: Reports other PMFSH - History History Provided By: Patient, Medical Record - Medical History Medical History: Medical History (Last Reviewed 06/08/18 @ 16:07 by Maria Isabel Carnes MD) Anterior urethral stricture Anxiety COPD (chronic obstructive pulmonary disease) Depression Edema Hypertension Pulmonary embolism - Surgical History Surgical History: Surgical History (Last Reviewed 06/08/18 @ 16:07 by Maria Isabel Carnes MD) Hx of cholecystectomy Previous section - Family History Family History: Family History (Last Updated 06/08/18 @ 16:07 by Maria Isabel Carnes MD) Other No pertinent family history - Social History I have reviewed the patient's Social History: Yes - Tobacco History Second Hand Smoke Exposure: No Tobacco Use In Past 30 Days: No Smoking Status: Unknown if ever smoked Tobacco Type: Cigarettes - Alcohol History How Often Do You Have a Drink Containing Alcohol: Never - Substance Use History Substance History: No History of Abuse - Travel History Recent Travel in the [place] Within the Last 8 Weeks: No Recent Travel Out of the Country Within the Last 8 Weeks: No - Immunization History Tetanus Immunization: Unsure Hx Influenza Vaccine This Season: Yes Medications and Allergies Active Medications: Active Medications Acetaminophen (Tylenol) 650 mg PO Q4H PRN PRN Reason: pain 1-10/ fever Last Admin: 06/05/18 16:18 Dose: 650 mg Al Hydroxide/Mg Hydroxide (Milk Of Marga Johnson) 30 ml PO Q12H PRN PRN Reason: Mild Constipation Albuterol (Albuterol Neb (Prn)) 2.5 mg NEB Q2HR NEB PRN PRN Reason: DYSPNEA Last Admin: 06/07/18 17:45 Dose: 2.5 mg Albuterol (Duoneb Neb (Sonny)) 1 ampul NEB Q4HR NEB SONNY Last Admin: 06/08/18 13:42 Dose: 1 ampul Amlodipine Besylate (Norvasc) 10 mg PO DAILY SONNY Last Admin: 06/08/18 08:18 Dose: 10 mg Artificial Tears (Refresh Classic 1.4/0.6% Pf Opth Drops) 1 drop EACH EYE BID SONNY Last Admin: 06/08/18 08:22 Dose: Not Given Aspirin (Ecotrin) 81 mg PO DAILY [facility] Atorvastatin Calcium (Lipitor) 40 mg PO DAILY [facility] Last Admin: 06/08/18 08:18 Dose: 40 mg Bisacodyl (Dulcolax Supp) 10 mg RECTAL DAILY PRN PRN Reason: SEVERE CONSITIPATION Last Admin: 06/03/18 17:57 Dose: 10 mg Budesonide/Formoterol Fumarate (Symbicort 160/4.5 Mcg Inh) 2 puff INH BID [facility] Last Admin: 06/08/18 08:19 Dose: 2 puff Captopril (Capoten) 25 mg PO BID [facility] Last Admin: 05/28/18 22:50 Dose: Not Given Carvedilol (Coreg) 12.5 mg PO BID [facility] Last Admin: 06/08/18 08:18 Dose: 12.5 mg Chlorhexidine Gluconate (Peridex 0.12% Oral Kit) 15 ml OROPHARYNG BID@0800, 2000 [facility] Last Admin: 06/08/18 08:22 Dose: 15 ml Dextrose (D50w Vial) 50 ml IV.PUSH UNSCH PRN PRN Reason: PER HYPOGLYCEMIA PROTOCOL Enalaprilat (Vasotec Inj) 2.5 mg IV.PUSH Q6H PRN PRN Reason: SBP>160, DBP>90 Last Admin: 06/02/18 11:20 Dose: 2.5 mg Gabapentin (Neurontin) 100 mg PO TID [facility] Last Admin: 06/08/18 12:10 Dose: 100 mg Glucagon (Glucagon Inj) 1 mg OTHER PRN PRN PRN Reason: for Hypoglycemia Protocol Hydralazine HCl (Apresoline) 100 mg PO TID [facility] Last Admin: 05/29/18 08:21 Dose: Not Given Hydrochlorothiazide (Hydrodiuril) 25 mg PO DAILY [facility] Last Admin: 05/28/18 08:41 Dose: 25 mg Sodium Chloride (Ns Inj) 1,000 mls @ 100 mls/hr IV.SIG .Q10H [facility] Last Admin: 05/31/18 05:16 Dose: 100 mls/hr Sodium Chloride (1/2 Normal Saline Inj) 1,000 mls @ 50 mls/hr IV.CONT .Q20H [facility] Last Admin: 06/08/18 12:05 Dose: Not Given Sodium Chloride (Ns Inj) 1,000 mls @ 84 mls/hr IV.CONT .[id number] [facility] Last Admin: 06/08/18 12:17 Dose: 84 mls/hr Fluconazole (Diflucan 100 Mg Premix Bag) 50 mls @ 50 mls/hr IV.SIG Q24H [facility] Last Admin: 06/08/18 12:10 Dose: 50 mls/hr Albumin Human (Flexbumin 25% Inj) 100 mls @ 60 mls/hr IV.SIG Q12H [facility] Insulin Aspart (Novolog Insulin Correctional Sugar Inj) 0 unit SQ Q4HR [facility]; Protocol Last Admin: 06/08/18 12:11 Dose: Not Given Insulin Detemir (Levemir Inj) 5 unit SQ HS [facility] Last Admin: 06/07/18 20:05 Dose: 5 unit Labetalol HCl (Trandate Inj) 10 mg IV.PUSH Q1H PRN PRN Reason: Sbp>160, Dbp>90, Hr>65 Last Admin: 06/01/18 19:25 Dose: 10 mg Lactic Acid (Lac-Hydrin 12% Lotion) 1 applicatio TOPICAL DAILY [facility] Last Admin: 06/08/18 08:20 Dose: 1 applicatio Morphine Sulfate (Morphine Inj) 4 mg IV.PUSH Q2H PRN PRN Reason: breakthrough pain Last Admin: 06/08/18 09:02 Dose: 4 mg Mupirocin (Bactroban 2% Nasal Oint) 1 applicatio EACH NARE BID [facility] Last Admin: 06/08/18 08:18 Dose: 1 applicatio Ondansetron HCl (Zofran Inj) 4 mg IV.PUSH Q6H PRN PRN Reason: NAUSEA Last Admin: 06/04/18 00:46 Dose: 4 mg Pantoprazole Sodium (Protonix Inj) 40 mg IV.PUSH Q12HR [facility] Last Admin: 06/08/18 08:19 Dose: 40 mg Senna/Docusate Sodium (Tanisha-Colace) 1 tab PO BID [facility] Last Admin: 06/08/18 08:18 Dose: 1 tab Sennosides (Senokot) 17.2 mg PO Q12H PRN PRN Reason: Moderate Constipation Sodium Chloride (Ns Flush) 2 ml IV.FLUSH BID [facility] Last Admin: 06/08/18 08:19 Dose: 2 ml Sodium Chloride (Ns Flush) 2 ml IV.FLUSH PRN PRN PRN Reason: FLUSH AFTER USING IV ACCESS Last Admin: 05/24/18 14:27 Dose: 2 ml Terbutaline Sulfate (Brethine Inj) 1 mg SQ UNSCH PRN PRN Reason: For Extravasation Tramadol HCl (Ultram) 50 mg PO Q8H PRN PRN Reason: BREAKTHROUGH PAIN Last Admin: 05/31/18 10:55 Dose: 50 mg Trazodone HCl (Desyrel) 50 mg PO DAILY [facility] Last Admin: 06/08/18 08:18 Dose: 50 mg Allergies Allergy/AdvReac Type Severity Reaction Status Date / Time No Known Allergies Allergy Verified 05/20/18 02:09 Home Medications Medication Instructions Recorded Confirmed Type acetaminophen [Tylenol Extra 500 mg PO Q4H PRN 05/20/18 05/20/18 History Strength] alprazolam [Xanax] 0.5 mg PO BID PRN 05/20/18 05/20/18 History amlodipine [Norvasc] 10 mg PO DAILY 05/20/18 05/20/18 History ammonium lactate 1 applic TOPICAL DAILY 05/20/18 05/20/18 History aspirin [Aspir-Low] 81 mg PO DAILY 05/20/18 05/20/18 History atorvastatin 40 mg PO DAILY 05/20/18 05/20/18 History budesonide-formoterol [Symbicort] 2 puff INHALATION BID 05/20/18 05/20/18 History captopril-hydrochlorothiazide 1 tab PO BID 05/20/18 05/20/18 History carvedilol [Coreg] 12.5 mg PO BID 05/20/18 05/20/18 History ciprofloxacin HCl [Cipro] 500 mg PO BID 05/20/18 05/20/18 History gabapentin 100 mg PO TID 05/20/18 05/20/18 History hydralazine 75 mg PO TID 05/20/18 05/20/18 History ibuprofen 5 mg/kg PO Q6-8H PRN 05/20/18 05/20/18 History ipratropium-albuterol 3 ml INHALATION QID 05/20/18 05/20/18 History melatonin 3 mg PO HS PRN 05/20/18 05/20/18 History omeprazole magnesium [Prilosec OTC] 20 mg PO DAILY 05/20/18 05/20/18 History prednisone 5 mg PO DAILY 05/20/18 05/20/18 History ranitidine HCl 150 mg PO DAILY 05/20/18 05/20/18 History rivaroxaban [Xarelto] 20 mg PO DAILY 05/20/18 05/20/18 History trazodone 50 mg PO DAILY 05/20/18 05/20/18 History Exam Vital signs: Vital Signs 06/07/18 16:00 06/07/18 17:00 06/07/18 17:46 Temperature 99 F Pulse Rate 64 64 63 Respiratory Rate 15 14 19 Blood Pressure 93/52 L 96/55 L Pulse Oximetry 99 98 06/07/18 18:00 06/07/18 19:00 06/07/18 20:00 Temperature 99.4 F Pulse Rate 63 62 66 Respiratory Rate 14 15 14 Blood Pressure 106/54 L 116/55 L 109/53 L Pulse Oximetry 100 100 97 06/07/18 20:28 06/07/18 20:36 06/07/18 21:00 Temperature Pulse Rate 68 62 Respiratory Rate 20 18 13 Blood Pressure 113/53 L Pulse Oximetry 97 100 06/07/18 22:00 06/07/18 23:00 06/08/18 00:00 Temperature 98.5 F Pulse Rate 61 62 61 Respiratory Rate 13 13 12 Blood Pressure 108/51 L 108/52 L 109/55 L Pulse Oximetry 100 96 98 06/08/18 00:27 06/08/18 01:00 06/08/18 02:00 Temperature Pulse Rate 67 61 65 Respiratory Rate 20 13 13 Blood Pressure 110/55 L Pulse Oximetry 99 95 06/08/18 02:01 06/08/18 03:00 06/08/18 03:12 Temperature Pulse Rate 66 64 75 Respiratory Rate 13 14 16 Blood Pressure 127/56 L 113/56 L Pulse Oximetry 95 99 06/08/18 04:00 06/08/18 05:00 06/08/18 06:00 Temperature 98.6 F Pulse Rate 72 78 68 Respiratory Rate 15 19 15 Blood Pressure 117/56 L 122/90 108/55 L Pulse Oximetry 95 92 L 97 06/08/18 07:00 06/08/18 07:46 06/08/18 08:00 Temperature 98.9 F Pulse Rate 69 73 Respiratory Rate 14 15 Blood Pressure 113/58 L 108/55 L Pulse Oximetry 96 95 100 06/08/18 09:00 06/08/18 10:00 06/08/18 11:00 Temperature Pulse Rate 77 75 75 Respiratory Rate 17 14 16 Blood Pressure 112/57 L 113/57 L 107/50 L Pulse Oximetry 92 L 96 86 L 06/08/18 12:00 06/08/18 12:42 06/08/18 13:00 Temperature 99.7 F H Pulse Rate 74 73 74 Respiratory Rate 15 14 17 Blood Pressure 107/55 L 107/54 L Pulse Oximetry 96 100 06/08/18 13:42 06/08/18 14:00 Temperature Pulse Rate 72 74 Respiratory Rate 18 17 Blood Pressure 113/54 L Pulse Oximetry 100 Intake & Output 06/07/18 06/08/18 06/08/18 18:59 06:59 18:59 Intake Total 1530 / 1530 1360 / 1360 1000 / 1000 Output Total 800 / 800 Balance 730 / 730 1360 / 1360 1000 / 1000 Weight 96.8 kg Intake: IV 1050 / 1050 1000 / 1000 1000 / 1000 NS Inj 1,000 ML @ 84 mls/hr IV. 1000 / 1000 1000 / 1000 CONT .[id number] SONNY Rx#:[id number] 1/2 Normal Saline Inj 1,000 ML 1000 / 1000 @ 84 mls/hr IV.CONT .[id number] SONNY Rx#:[id number] Diflucan 100 mg Premix Bag 50 50 / 50 ML @ 50 mls/hr IV.SIG Q24H SONNY Rx#:[id number] Oral 480 / 480 360 / 360 Output: Urine 800 / 800 Other: # Incontinent Voids 1 Date of Last Bowel Movement 06/07/18 06/07/18 06/07/18 # Bowel Movements 1 # Incontinent Bowel Movements 1 Narrative: GENERAL: Well-nourished, well-developed patient. SKIN: Warm and dry. HEAD: Normocephalic. EYES: No scleral icterus. No injection or drainage. NECK: Supple, trachea midline. No JVD or lymphadenopathy. CARDIOVASCULAR: Regular rate and rhythm without murmurs, gallops, or rubs. RESPIRATORY: Breath sounds at bases GASTROINTESTINAL: Abdomen distended. EXTREMITIES: 2-3+ edema NEUROLOGICAL: Awake, alert, and oriented x 3. Non-focal. Results - Lab Results 06/06/18 04:13 06/08/18 04:26 Most recent lab results ABG pH 7.36 (7.380-7.420) L 05/20/18 11:45 ABG pCO2 42 mmHg (38-42) 05/20/18 11:45 ABG pO2 68 mmHG (61-120) 05/20/18 11:45 ABG HCO3 23 mmol/L (22-26) 05/20/18 11:45 Calcium 7.9 mg/dL (8.5-10.1) L D 06/08/18 04:26 Phosphorus 3.0 mg/dL (2.5-4.9) 05/25/18 05:30 Magnesium 2.2 mg/dL (1.5-2.5) 06/08/18 04:26 Assessment and Plan - Assessment (1) STEPHIE (acute kidney injury) Code(s): N17.9 - Acute kidney failure, unspecified Status: Acute (2) GI bleed requiring more than 4 units of blood in 24 hours, ICU, or surgery Code(s): K92.2 - Gastrointestinal hemorrhage, unspecified Status: Acute (3) Anemia Code(s): D64.9 - Anemia, unspecified Status: Acute (4) Shock Code(s): R57.9 - Shock, unspecified Status: Acute (5) Sepsis Code(s): A41.9 - Sepsis, unspecified organism Status: Acute - Plan Patient is getting IV fluid however the urine output is not recorded correctly She is getting Diflucan for yeast infection Acute renal failure appears to be due to hypoperfusion of the kidney as a result of sepsis Third spacing Use albumin and give a dose of Lasix To improve urine output Insert Chirinos catheter. Strict intake and output Follow BMP Avoid nephrotoxic agent
[2018-06-08] MEDS: Albumin Human 25% Inj 100 ML IV.SIG SCH (16:21)
--- NOTE | 2018-06-08 16:54 | US ---
EXAM DATE: 06/08/2018 12:00 AM EDT AGE/SEX: 68 years / Female INDICATIONS: Increased lab values. CLINICAL DATA: This is the patient's initial encounter. Patient reports that signs and symptoms have been present for 1 day and indicates a pain score of 0/10. MEDICAL/SURGICAL HISTORY: Chronic obstructive pulmonary disease. Hypertension. Edema. Anxiety. Depression. Pulmonary embolism. Cholecystectomy. section. COMPARISON: None. MEASUREMENTS: Right Kidney:__10.8 x 6.1x 5.8 cm Left Kidney:__10.0 x 5.2 x 6.1 cm FINDINGS: Right Kidney: Normal echotexture and cortical thickness. No mass or hydronephrosis. Left Kidney: Normal echotexture and cortical thickness. No mass or hydronephrosis. Bladder: Within normal limits given the degree of distension. Other: None. CONCLUSION: 1. Negative renal sonogram. No obstruction observed. Electronically signed by: Sy Denis MD 06/08/2018 4:53 PM EDT
[2018-06-08 18:50] LABS: Bacteria,Urine Rare /hpf; Bilirubin,Urine Negative (Negative); Clarity,Urine Hazy (Clear); Color,Urine Straw (Yellw/Straw); Glucose,Urine (UA) Negative (Negative); Leukocyte Esterase,Urine Moderate (Negative); Mucus,Urine Few /lpf (Occasional); Nitrite,Urine Negative (Negative); Specific Gravity,Urine 1.004 (1.002-1.035); Squamous Epithelial Cell,Urine <1 /hpf (0-5)
[2018-06-08] MEDS: Insulin Detemir Inj 1,000 UNIT/10 ML Vial SQ SCH (20:09)
[2018-06-08 20:26] LABS: Albumin 1.5 g/dL (3.4-5.0); Calcium 7.6 mg/dL (8.5-10.1); Carbon Dioxide 24.9 meq/L (21.0-32.0); Phosphorus 2.8 mg/dL (2.5-4.9); Potassium 3.8 meq/L (3.5-5.1)
[2018-06-09] MEDS: Sod Chloride 0.9% Inj 1,000 ML IV.CONT SCH ×2 (00:39→14:13)
[2018-06-09] MEDS: Sodium Chloride 0.45 % Inj 1,000 ML IV.CONT SCH (00:40)
[2018-06-09] MEDS: Insulin NovoLOG Aspart Correctional Sugar Inj SQ SCH ×5 (00:41→21:15)
[2018-06-09] MEDS: Oral Hygiene Kit OROPHARYNG SCH ×4 (00:41→15:15)
[2018-06-09] MEDS: Albumin Human 25% Inj 100 ML IV.SIG SCH ×2 (06:36→15:14)
[2018-06-09] MEDS: Morphine Inj 4 MG/ML Vial IV.PUSH PRN ×3 (06:37→17:53)
[2018-06-09 06:57] LABS: Baso % (Auto) 0.3 % (0.0-2.0); Eos # (Auto) 0.1 th/mm3 (0.0-0.4); Eos % (Auto) 2.1 % (0.0-4.0); Hematocrit 22.8 % (35.0-46.0); Hemoglobin 7.4 gm/dL (11.6-15.3); Lymph # (Auto) 0.7 th/mm3 (1.0-4.8); Lymph % (Auto) 12.9 % (9.0-44.0); Mean Corpuscular HGB Conc 32.6 % (32.0-36.0); Mean Corpuscular Hemoglobin 29.5 pg (27.0-34.0); Mean Corpuscular Volume 90.4 fL (80.0-100.0); Mean Platelet Volume 8.2 fL (7.0-11.0); Mono # (Auto) 0.6 th/mm3 (0.0-0.9); Mono % (Auto) 9.6 % (0.0-8.0); Neut # (Auto) 4.3 th/mm3 (1.8-7.7); Neut % (Auto) 75.1 % (16.0-70.0); Platelet Count 169 th/mm3 (150-450); Red Blood Count 2.53 mil/mm3 (4.00-5.30); Red Cell Distribution Width 15.6 % (11.6-17.2); White Blood Count 5.8 th/mm3 (4.0-11.0)
[2018-06-09] MEDS: Carvedilol 12.5 MG Tablet PO SCH ×2 (09:04→21:17)
[2018-06-09] MEDS: Pantoprazole Inj 40 MG Vial IV.PUSH SCH ×2 (09:04→21:18)
[2018-06-09] MEDS: traZODone 50 MG Tablet PO SCH (09:04)
[2018-06-09] MEDS: Lactic Acid (Ammonium Lactate) 12% Lotion 225 GM Bottle TOPICAL SCH (09:05)
[2018-06-09] MEDS: Budesonide-Formoterol 160/4.5 MCG 6 GM Inhaler INH SCH ×2 (09:05→21:18)
[2018-06-09] MEDS: Senna/Docusate Sodium 8.6/50 MG Tablet PO SCH ×2 (09:05→21:18)
[2018-06-09] MEDS: Mupirocin 2% Nasal Oint Topical Syringe EACH NARE SCH ×2 (09:05→21:16)
[2018-06-09] MEDS: Polyvinyl Alcohol/Povidone PF Opth Drops 0.4 ML Dropperette EACH EYE SCH ×2 (09:05→21:18)
[2018-06-09] MEDS: Gabapentin 100 MG Capsule PO SCH ×3 (09:05→17:49)
[2018-06-09] MEDS: Chlorhexidine 0.12% Oral Kit 15 ML UDC OROPHARYNG SCH ×2 (09:06→21:16)
--- NOTE | 2018-06-09 13:29 | P.PNNP ---
Subjective Interval history: edema persists, Physical Exam Vital signs: Vital Signs 06/08/18 13:42 06/08/18 14:00 06/08/18 15:00 Temperature Pulse Rate 72 74 74 Respiratory Rate 18 17 16 Blood Pressure 113/54 L Pulse Oximetry 100 96 06/08/18 15:01 06/08/18 16:00 06/08/18 17:00 Temperature Pulse Rate 74 75 83 Respiratory Rate 16 15 17 Blood Pressure 119/57 L 116/54 L 117/54 L Pulse Oximetry 97 97 95 06/08/18 18:00 06/08/18 18:32 06/08/18 19:00 Temperature Pulse Rate 80 86 Respiratory Rate 17 18 Blood Pressure 110/57 L Pulse Oximetry 97 96 06/08/18 20:00 06/08/18 22:00 06/08/18 23:44 Temperature 98.7 F Pulse Rate 88 79 80 Respiratory Rate 16 17 Blood Pressure 126/60 Pulse Oximetry 94 L 98 06/09/18 00:00 06/09/18 02:00 06/09/18 03:22 Temperature 98.2 F Pulse Rate 78 73 66 Respiratory Rate 16 17 Blood Pressure 145/60 H Pulse Oximetry 100 06/09/18 04:00 06/09/18 06:00 06/09/18 07:00 Temperature 98.4 F Pulse Rate 68 79 Respiratory Rate 16 Blood Pressure 135/60 Pulse Oximetry 99 96 06/09/18 08:00 06/09/18 08:14 06/09/18 12:58 Temperature 98.4 F Pulse Rate 72 69 84 Respiratory Rate 17 14 20 Blood Pressure 107/58 L Pulse Oximetry 96 98 Intake & Output 06/08/18 06/09/18 06/09/18 18:59 06:59 18:59 Intake Total 1630 / 1630 200 / 200 100 / 100 Output Total 800 / 800 1900 / 1900 Balance 830 / 830 -1700 / -1700 100 / 100 Weight 96.8 kg Intake: IV 1150 / 1150 0 / 0 100 / 100 NS Inj 1,000 ML @ 84 mls/hr IV. 1000 / 1000 CONT .[id number] [facility] Rx#:[id number] 1/2 Normal Saline Inj 1,000 ML 0 / 0 @ 50 mls/hr IV.CONT .Q20H [facility] Rx#:[id number] Flexbumin 25% Inj 100 ML @ 60 100 / 100 100 / 100 mls/hr IV.SIG Q12H [facility] Rx#: [id number] Diflucan 100 mg Premix Bag 50 50 / 50 ML @ 50 mls/hr IV.SIG Q24H [facility] Rx#:[id number] Oral 480 / 480 200 / 200 Output: Urine Amount (Catheter) 800 / 800 1900 / 1900 Indwelling Urethral Catheter 800 / 800 1900 / 1900 Other: Date of Last Bowel Movement 06/08/18 06/09/18 06/09/18 # Bowel Movements 2 # Incontinent Bowel Movements 2 Narrative: GENERAL: Well-nourished, well-developed patient. SKIN: Warm and dry. HEAD: Normocephalic. EYES: No scleral icterus. No injection or drainage. NECK: Supple, trachea midline. No JVD or lymphadenopathy. CARDIOVASCULAR: Regular rate and rhythm without murmurs, gallops, or rubs. RESPIRATORY: Breath sounds at bases GASTROINTESTINAL: Abdomen distended. EXTREMITIES: 2-3+ edema NEUROLOGICAL: Awake, alert, and oriented x 3. Non-focal. - Urinary Catheter Management Indwelling Urethral Catheter Cath placed during this visit: yes Reason for continuing: Hourly intake/output Insertion date: 05/20/18 Insertion time: 06:00 Assessment and Plan - Assessment (1) STEPHIE (acute kidney injury) Code(s): N17.9 - Acute kidney failure, unspecified Status: Acute (2) GI bleed requiring more than 4 units of blood in 24 hours, ICU, or surgery Code(s): K92.2 - Gastrointestinal hemorrhage, unspecified Status: Acute (3) Anemia Code(s): D64.9 - Anemia, unspecified Status: Acute (4) Shock Code(s): R57.9 - Shock, unspecified Status: Acute (5) Sepsis Code(s): A41.9 - Sepsis, unspecified organism Status: Acute - Plan Patient is getting IV fluid however the urine output is not recorded correctly She is getting Diflucan for yeast infection Acute renal failure appears to be due to hypoperfusion of the kidney as a result of sepsis Third spacing, Jame 7 pre renal azotemia Use albumin and give a dose of Lasix To improve urine output check Renal panel Avoid nephrotoxic agent
[2018-06-09 14:25] LABS: Albumin 2.3 g/dL (3.4-5.0); Carbon Dioxide 27.8 meq/L (21.0-32.0); Phosphorus 2.9 mg/dL (2.5-4.9); Potassium 3.5 meq/L (3.5-5.1)
--- NOTE | 2018-06-09 15:19 | P.PN ---
Subjective Interval history: This is a pleasant 68 y/o Female who was brought in from [facility], has Hypertension, Hyperlipidemia, PE on Xarelto She was brought into our emergency department after she was found to have systolic blood pressure in the 60s and was having dark colored stools. 06/08: Seen in her bedroom continue with Shortness of breath, swollen legs, increased Creatinine level to 2.1 asked for Nephrology specialist following. 06/09: seen in her bedroom, in the presence of nurse Henna, her renal function is worsened today to Creatinine 2.5 Nephrology specialist following, thinking in Hypoperfusion and Third spacing, Urinary sodium 7 pre renal azotemia, recommended to continue Lasix and albumin, to improve urine output, also may improve her respiratory function, Physical Exam Vital signs: Vital Signs 06/08/18 16:00 06/08/18 17:00 06/08/18 18:00 Temperature Pulse Rate 75 83 80 Respiratory Rate 15 17 17 Blood Pressure 116/54 L 117/54 L 110/57 L Pulse Oximetry 97 95 97 06/08/18 18:32 06/08/18 19:00 06/08/18 20:00 Temperature 98.7 F Pulse Rate 86 88 Respiratory Rate 18 16 Blood Pressure 126/60 Pulse Oximetry 96 94 L 06/08/18 22:00 06/08/18 23:44 06/09/18 00:00 Temperature 98.2 F Pulse Rate 79 80 78 Respiratory Rate 17 16 Blood Pressure 145/60 H Pulse Oximetry 98 100 06/09/18 02:00 06/09/18 03:22 06/09/18 04:00 Temperature 98.4 F Pulse Rate 73 66 68 Respiratory Rate 17 16 Blood Pressure 135/60 Pulse Oximetry 99 06/09/18 06:00 06/09/18 07:00 06/09/18 08:00 Temperature 98.4 F Pulse Rate 79 72 Respiratory Rate 17 Blood Pressure 107/58 L Pulse Oximetry 96 96 06/09/18 08:14 06/09/18 12:58 Temperature Pulse Rate 69 84 Respiratory Rate 14 20 Blood Pressure Pulse Oximetry 98 Intake & Output 06/08/18 06/09/18 06/09/18 18:59 06:59 18:59 Intake Total 1630 / 1630 200 / 200 700 / 700 Output Total 800 / 800 1900 / 1900 Balance 830 / 830 -1700 / -1700 700 / 700 Weight 96.8 kg Intake: IV 1150 / 1150 0 / 0 700 / 700 NS Inj 1,000 ML @ 84 mls/hr IV. 1000 / 1000 CONT .[id number] [facility] Rx#:[id number] 1/2 Normal Saline Inj 1,000 ML 0 / 0 600 / 600 @ 50 mls/hr IV.CONT .Q20H [facility] Rx#:[id number] Flexbumin 25% Inj 100 ML @ 60 100 / 100 100 / 100 mls/hr IV.SIG Q12H [facility] Rx#: [id number] Diflucan 100 mg Premix Bag 50 50 / 50 ML @ 50 mls/hr IV.SIG Q24H [facility] Rx#:[id number] Oral 480 / 480 200 / 200 Output: Urine Amount (Catheter) 800 / 800 1900 / 1900 Indwelling Urethral Catheter 800 / 800 1900 / 1900 Other: Date of Last Bowel Movement 06/08/18 06/09/18 06/09/18 # Bowel Movements 2 # Incontinent Bowel Movements 2 - Urinary Catheter Management Indwelling Urethral Catheter Cath placed during this visit: yes Reason for continuing: Hourly intake/output Insertion date: 05/20/18 Insertion time: 06:00 Results - Labs CBC & Chem 7: 06/09/18 05:52 06/09/18 13:41 Laboratory Results - last 24 hr 06/08/18 06/08/18 06/08/18 04:26 16:40 17:45 WBC RBC Hgb Hct MCV MCH MCHC RDW Plt Count MPV Neut % (Auto) Lymph % (Auto) [place] % (Auto) Eos % (Auto) Baso % (Auto) Neut # (Auto) Lymph # (Auto) [place] # (Auto) Eos # (Auto) Baso # (Auto) WBC Differential Differential Comment Sodium 143 Potassium 3.8 Chloride 109 H Carbon Dioxide 24.9 Anion Gap 9 BUN 11 Creatinine 2.10 H Estimated GFR 23 L POC Glucose 100 Random Glucose 111 H Calcium 7.6 L Phosphorus 2.8 Albumin 1.5 L Urine Color Straw Urine Clarity Hazy H Urine pH 6.0 Ur Specific [place] 1.004 Urine Protein Negative Urine Glucose (UA) Negative Urine Ketones Negative Urine Occult Blood Small H Urine Nitrate Negative Urine Bilirubin Negative Urine Urobilinogen Less than 2 Ur Leukocyte Esterase Moderate H Urine RBC 6 H Urine WBC 85 H Urine WBC Clumps Few H Ur Squamous Epith Cells <1 Urine Bacteria Rare H Urine Mucus Few H Urine Yeast Rare H Micro UA Comment Cath-culture ind Ur Microscopic Review Not Reportable Urine Culture Comments Cath-cult indicated Ur Random Creatinine Ur Random Sodium 06/08/18 06/08/18 06/09/18 17:45 19:57 00:36 WBC RBC Hgb Hct MCV MCH MCHC RDW Plt Count MPV Neut % (Auto) Lymph % (Auto) [place] % (Auto) Eos % (Auto) Baso % (Auto) Neut # (Auto) Lymph # (Auto) [place] # (Auto) Eos # (Auto) Baso # (Auto) WBC Differential Differential Comment Sodium Potassium Chloride Carbon Dioxide Anion Gap BUN Creatinine Estimated GFR POC Glucose 87 94 Random Glucose Calcium Phosphorus Albumin Urine Color Urine Clarity Urine pH Ur Specific [place] Urine Protein Urine Glucose (UA) Urine Ketones Urine Occult Blood Urine Nitrate Urine Bilirubin Urine Urobilinogen Ur Leukocyte Esterase Urine RBC Urine WBC Urine WBC Clumps Ur Squamous Epith Cells Urine Bacteria Urine Mucus Urine Yeast Micro UA Comment Ur Microscopic Review Urine Culture Comments Ur Random Creatinine Less than 13 L Ur Random Sodium 113 06/09/18 06/09/18 06/09/18 05:27 05:52 09:05 WBC 5.8 RBC 2.53 L Hgb 7.4 L Hct 22.8 L MCV 90.4 MCH 29.5 MCHC 32.6 RDW 15.6 Plt Count 169 MPV 8.2 Neut % (Auto) 75.1 H Lymph % (Auto) 12.9 Powell % (Auto) 9.6 H Eos % (Auto) 2.1 Baso % (Auto) 0.3 Neut # (Auto) 4.3 Lymph # (Auto) 0.7 L Powell # (Auto) 0.6 Eos # (Auto) 0.1 Baso # (Auto) 0.0 WBC Differential . Differential Comment Auto diff final Sodium Potassium Chloride Carbon Dioxide Anion Gap BUN Creatinine Estimated GFR POC Glucose 69 62 L Random Glucose Calcium Phosphorus Albumin Urine Color Urine Clarity Urine pH Ur Specific [place] Urine Protein Urine Glucose (UA) Urine Ketones Urine Occult Blood Urine Nitrate Urine Bilirubin Urine Urobilinogen Ur Leukocyte Esterase Urine RBC Urine WBC Urine WBC Clumps Ur Squamous Epith Cells Urine Bacteria Urine Mucus Urine Yeast Micro UA Comment Ur Microscopic Review Urine Culture Comments Ur Random Creatinine Ur Random Sodium 06/09/18 06/09/18 06/09/18 09:30 10:20 11:45 WBC RBC Hgb Hct MCV MCH MCHC RDW Plt Count MPV Neut % (Auto) Lymph % (Auto) Powell % (Auto) Eos % (Auto) Baso % (Auto) Neut # (Auto) Lymph # (Auto) Powell # (Auto) Eos # (Auto) Baso # (Auto) WBC Differential Differential Comment Sodium Potassium Chloride Carbon Dioxide Anion Gap BUN Creatinine Estimated GFR POC Glucose 68 88 109 Random Glucose Calcium Phosphorus Albumin Urine Color Urine Clarity Urine pH Ur Specific [place] Urine Protein Urine Glucose (UA) Urine Ketones Urine Occult Blood Urine Nitrate Urine Bilirubin Urine Urobilinogen Ur Leukocyte Esterase Urine RBC Urine WBC Urine WBC Clumps Ur Squamous Epith Cells Urine Bacteria Urine Mucus Urine Yeast Micro UA Comment Ur Microscopic Review Urine Culture Comments Ur Random Creatinine Ur Random Sodium 06/09/18 13:41 WBC RBC Hgb Hct MCV MCH MCHC RDW Plt Count MPV Neut % (Auto) Lymph % (Auto) [place] % (Auto) Eos % (Auto) Baso % (Auto) Neut # (Auto) Lymph # (Auto) Powell # (Auto) Eos # (Auto) Baso # (Auto) WBC Differential Differential Comment Sodium 145 Potassium 3.5 Chloride 108 H Carbon Dioxide 27.8 Anion Gap 9 BUN 10 Creatinine 2.50 H Estimated GFR 19 L POC Glucose Random Glucose 94 Calcium 8.0 L Phosphorus 2.9 Albumin 2.3 L D Urine Color Urine Clarity Urine pH Ur Specific [place] Urine Protein Urine Glucose (UA) Urine Ketones Urine Occult Blood Urine Nitrate Urine Bilirubin Urine Urobilinogen Ur Leukocyte Esterase Urine RBC Urine WBC Urine WBC Clumps Ur Squamous Epith Cells Urine Bacteria Urine Mucus Urine Yeast Micro UA Comment Ur Microscopic Review Urine Culture Comments Ur Random Creatinine Ur Random Sodium Microbiology 06/08/18 17:45 Catheterized Urine Urine Culture - Preliminary No growth in 24 hours 06/05/18 19:50 Blood - Peripheral Aerobic Blood Culture - Preliminary No growth in 4 days 06/05/18 19:50 Blood - Peripheral Anaerobic Blood Culture - Preliminary No growth in 4 days 06/05/18 19:58 Blood - Peripheral Aerobic Blood Culture - Preliminary No growth in 4 days 06/05/18 19:58 Blood - Peripheral Anaerobic Blood Culture - Preliminary No growth in 4 days - Imaging Impressions Abdomen/Bladder Ultrasound 06/08/18 00:00 CONCLUSION: 1. Negative renal sonogram. No obstruction observed. - Procedures central line placement. Assessment and Plan - Plan This patient is a 68-year-old female from a custodial facility. She has a history of hypertension dyslipidemia and pulmonary embolus and was on Xarelto. She was brought into our emergency department after she was found to have systolic blood pressure in the 60s and was having dark colored stools. 1. Fungal UTI Blood cultures are pending, urinalysis showed findings concerning for a fungal UTI. Will follow up on the urine culture. continue Fluconazole Patient had an increase in her serum creatinine today, the dose of fluconazole was renally adjusted. 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 2. Acute kidney injury possibly prerenal and medication induced. IV fluids switched to normal saline. Lisinopril held, today worsening to 2.5 recommended by Nephrology to continue IV fluids albumin and Lasix. asked for BNP to get the volume overload possible she has not got CHF. 3. Hemorrhagic shock secondary to GI bleed resolved, ASA on Hold, No signs of GI bleeding now. EGD and colonoscopy were done which showed severe erythematous gastritis as well as findings consistent with ischemic colitis Continue Protonix drip. Surgery recommending nonoperative management. 4. Ischemic colitis Off antibiotics, Non operative management by Surgical team. 5. Acute hypoxic respiratory failure secondary to COPD exacerbation, Continue Bronchodilator, Mucolytic incentive spirometry BiPAP as needed, Oxygen as needed. automotive parts specialist following. not improving condition, asked for new BNP. 6. Anxiety disorder, Benzodiazepines, 7. Peripheral neuropathy Continue gabapentin 8. Dyslipidemia Continue statin 9. Obesity strongly recommended diet and exercise as outpatient. Protonix for GI prophylaxis, no pharmacotherapy for DVT prophylaxis as the patient had a GI bleed. Continue PT patient was encouraged to participate in the physical therapy.. Patient will likely need continued rehab after she is medically stable. Poor chcf prognosis. Code Status: Full code. Discussed Condition With: patient and Nurse Miss Aguillon. Discharge Planning: Not yet clear for discharge.
[2018-06-09] MEDS: Insulin Detemir Inj 1,000 UNIT/10 ML Vial SQ SCH (21:17)
[2018-06-10] MEDS: Insulin NovoLOG Aspart Correctional Sugar Inj SQ SCH ×7 (00:34→21:50)
[2018-06-10] MEDS: Oral Hygiene Kit OROPHARYNG SCH ×4 (00:34→18:39)
[2018-06-10] MEDS: Albumin Human 25% Inj 100 ML IV.SIG SCH ×2 (04:46→18:38)
[2018-06-10] MEDS: Sod Chloride 0.9% Inj 1,000 ML IV.CONT SCH (04:47)
[2018-06-10] MEDS: Morphine Inj 4 MG/ML Vial IV.PUSH PRN ×3 (05:05→18:36)
[2018-06-10] MEDS: Chlorhexidine 0.12% Oral Kit 15 ML UDC OROPHARYNG SCH ×2 (08:09→21:50)
[2018-06-10 08:19] LABS: Calcium 7.6 mg/dL (8.5-10.1); Carbon Dioxide 27.6 meq/L (21.0-32.0); Potassium 3.2 meq/L (3.5-5.1)
[2018-06-10 08:21] LABS: Baso % (Auto) 0.5 % (0.0-2.0); Eos # (Auto) 0.1 th/mm3 (0.0-0.4); Lymph # (Auto) 0.7 th/mm3 (1.0-4.8); Lymph % (Auto) 12.3 % (9.0-44.0); Mean Corpuscular HGB Conc 33.5 % (32.0-36.0); Mean Corpuscular Hemoglobin 29.8 pg (27.0-34.0); Mean Corpuscular Volume 88.9 fL (80.0-100.0); Mean Platelet Volume 8.3 fL (7.0-11.0); Mono # (Auto) 0.5 th/mm3 (0.0-0.9); Mono % (Auto) 8.8 % (0.0-8.0); Neut # (Auto) 4.2 th/mm3 (1.8-7.7); Neut % (Auto) 76.4 % (16.0-70.0); Platelet Count 151 th/mm3 (150-450); Red Blood Count 2.32 mil/mm3 (4.00-5.30); Red Cell Distribution Width 15.6 % (11.6-17.2); White Blood Count 5.5 th/mm3 (4.0-11.0)
[2018-06-10 08:54] LABS: Hematocrit 20.6 % (35.0-46.0); Hemoglobin 6.9 gm/dL (11.6-15.3)
[2018-06-10] MEDS: Polyvinyl Alcohol/Povidone PF Opth Drops 0.4 ML Dropperette EACH EYE SCH (09:11)
[2018-06-10] MEDS: Pantoprazole Inj 40 MG Vial IV.PUSH SCH ×2 (09:23→21:52)
[2018-06-10] MEDS: Carvedilol 12.5 MG Tablet PO SCH ×2 (09:23→21:52)
[2018-06-10] MEDS: Mupirocin 2% Nasal Oint Topical Syringe EACH NARE SCH ×2 (09:24→21:51)
[2018-06-10] MEDS: Gabapentin 100 MG Capsule PO SCH ×3 (09:24→18:39)
[2018-06-10] MEDS: traZODone 50 MG Tablet PO SCH (09:24)
[2018-06-10] MEDS: Senna/Docusate Sodium 8.6/50 MG Tablet PO SCH ×2 (09:24→21:51)
[2018-06-10] MEDS: Lactic Acid (Ammonium Lactate) 12% Lotion 225 GM Bottle TOPICAL SCH (09:25)
[2018-06-10] MEDS: Budesonide-Formoterol 160/4.5 MCG 6 GM Inhaler INH SCH ×2 (09:25→21:54)
--- NOTE | 2018-06-10 10:08 | P.PN ---
Subjective Interval history: This is a pleasant 68 y/o Female who was brought in from [facility], has Hypertension, Hyperlipidemia, PE on Xarelto She was brought into our emergency department after she was found to have systolic blood pressure in the 60s and was having dark colored stools. 06/08: Seen in her bedroom continue with Shortness of breath, swollen legs, increased Creatinine level to 2.1 asked for Nephrology specialist following. 06/09: seen in her bedroom, in the presence of nurse Henna, her renal function is worsened today to Creatinine 2.5 Nephrology specialist following, thinking in Hypoperfusion and Third spacing, Urinary sodium 7 pre renal azotemia, recommended to continue Lasix and albumin, to improve urine output, also may improve her respiratory function, 06/10: Stable in her bedroom, improving Clinically not yet ready to transfer to the floor, no nausea, vomit or diarrhea. Physical Exam Vital signs: Vital Signs 06/09/18 12:00 06/09/18 12:58 06/09/18 14:00 Temperature 99.0 F Pulse Rate 83 84 86 Respiratory Rate 18 20 Blood Pressure 136/61 Pulse Oximetry 99 06/09/18 16:00 06/09/18 16:14 06/09/18 18:00 Temperature Pulse Rate 84 85 103 H Respiratory Rate 16 Blood Pressure Pulse Oximetry 06/09/18 19:55 06/09/18 20:00 06/09/18 22:00 Temperature 99.8 F H Pulse Rate 86 84 91 H Respiratory Rate 17 23 Blood Pressure 131/58 L Pulse Oximetry 94 L 100 06/09/18 23:29 06/10/18 00:00 06/10/18 02:00 Temperature 99.1 F Pulse Rate 73 77 72 Respiratory Rate 16 18 Blood Pressure 109/52 L Pulse Oximetry 99 06/10/18 04:00 06/10/18 06:00 06/10/18 06:39 Temperature 98.1 F Pulse Rate 80 72 Respiratory Rate 21 Blood Pressure 115/53 L Pulse Oximetry 99 100 06/10/18 07:28 Temperature Pulse Rate 91 H Respiratory Rate 20 Blood Pressure Pulse Oximetry Intake & Output 06/09/18 06/10/18 06/10/18 18:59 06:59 18:59 Intake Total 1420 / 1420 1450 / 1450 Output Total 2225 / 2225 1300 / 1300 Balance -805 / -805 150 / 150 Weight 98.1 kg Intake: IV 700 / 700 1150 / 1150 NS Inj 1,000 ML @ 50 mls/hr IV. 1000 / 1000 CONT .Q20H [facility] Rx#:[id number] 1/2 Normal Saline Inj 1,000 ML 600 / 600 @ 50 mls/hr IV.CONT .Q20H [facility] Rx#:[id number] Flexbumin 25% Inj 100 ML @ 60 100 / 100 100 / 100 mls/hr IV.SIG Q12H [facility] Rx#: [id number] Diflucan 100 mg Premix Bag 50 50 / 50 ML @ 50 mls/hr IV.SIG Q24H [facility] Rx#:[id number] Oral 720 / 720 300 / 300 Output: Stool 300 / 300 Urine Amount (Catheter) 2224 / 1000 Indwelling Urethral Catheter 2224 / 999 Other: Date of Last Bowel Movement 06/09/18 06/10/18 # Bowel Movements 1 # Incontinent Bowel Movements 1 Narrative: General Mild acute distress. HEENT extraocular movements are intact, clear oropharyngeal mucosa Cardiovascular S1-S2 audible Respiratory severe Decreased breath sounds bilateral, expiratory wheezing present no crackles. Abdomen soft, nontender, nondistended. Bowel sounds present.. Extremities no edema 2+ distal pulses in bilateral upper and lower extremities Neuro sensation is intact bilaterally. The patient is weak in all 4 of her extremities however is able to move them. - Urinary Catheter Management Indwelling Urethral Catheter Cath placed during this visit: yes Reason for continuing: Hourly intake/output Insertion date: 06/08/18 Insertion time: 16:15 Results - Labs CBC & Chem 7: 06/11/18 02:50 06/11/18 02:50 Laboratory Results - last 24 hr 06/09/18 06/09/18 06/09/18 10:20 11:45 13:41 WBC RBC Hgb Hct MCV MCH MCHC RDW Plt Count MPV Prelim Diff (Auto) Neut % (Auto) Lymph % (Auto) [place] % (Auto) Eos % (Auto) Baso % (Auto) Neut # (Auto) Lymph # (Auto) [place] # (Auto) Eos # (Auto) Baso # (Auto) Differential Comment Sodium 145 Potassium 3.5 Chloride 108 H Carbon Dioxide 27.8 Anion Gap 9 BUN 10 Creatinine 2.50 H Estimated GFR 19 L POC Glucose 88 109 Random Glucose 94 Calcium 8.0 L Phosphorus 2.9 B-Natriuretic Peptide Albumin 2.3 L D 06/09/18 06/09/18 06/10/18 17:55 19:56 00:24 WBC RBC Hgb Hct MCV MCH MCHC RDW Plt Count MPV Prelim Diff (Auto) Neut % (Auto) Lymph % (Auto) [place] % (Auto) Eos % (Auto) Baso % (Auto) Neut # (Auto) Lymph # (Auto) [place] # (Auto) Eos # (Auto) Baso # (Auto) Differential Comment Sodium Potassium Chloride Carbon Dioxide Anion Gap BUN Creatinine Estimated GFR POC Glucose 125 H 153 H 138 H Random Glucose Calcium Phosphorus B-Natriuretic Peptide Albumin 06/10/18 06/10/18 06/10/18 04:08 04:08 04:08 WBC 5.5 RBC 2.32 L Hgb 6.9 L* Hct 20.6 L* MCV 88.9 MCH 29.8 MCHC 33.5 RDW 15.6 Plt Count 151 MPV 8.3 Prelim Diff (Auto) Slide review pending Neut % (Auto) 76.4 H Lymph % (Auto) 12.3 [place] % (Auto) 8.8 H Eos % (Auto) 2.0 Baso % (Auto) 0.5 Neut # (Auto) 4.2 Lymph # (Auto) 0.7 L [place] # (Auto) 0.5 Eos # (Auto) 0.1 Baso # (Auto) 0.0 Differential Comment . Sodium 147 H Potassium 3.2 L Chloride 107 Carbon Dioxide 27.6 Anion Gap 12 BUN 11 Creatinine 2.66 H Estimated GFR 18 L POC Glucose Random Glucose 93 Calcium 7.6 L Phosphorus B-Natriuretic Peptide 754 H Albumin 06/10/18 04:30 WBC RBC Hgb Hct MCV MCH MCHC RDW Plt Count MPV Prelim Diff (Auto) Neut % (Auto) Lymph % (Auto) [place] % (Auto) Eos % (Auto) Baso % (Auto) Neut # (Auto) Lymph # (Auto) [place] # (Auto) Eos # (Auto) Baso # (Auto) Differential Comment Sodium Potassium Chloride Carbon Dioxide Anion Gap BUN Creatinine Estimated GFR POC Glucose 113 H Random Glucose Calcium Phosphorus B-Natriuretic Peptide Albumin Microbiology 06/06/18 06:15 Catheterized Urine Urine Culture - Final Lisbeth glabrata 06/08/18 17:45 Catheterized Urine Urine Culture - Preliminary No growth in 24 hours 06/05/18 19:50 Blood - Peripheral Aerobic Blood Culture - Preliminary No growth in 4 days 06/05/18 19:50 Blood - Peripheral Anaerobic Blood Culture - Preliminary No growth in 4 days 06/05/18 19:58 Blood - Peripheral Aerobic Blood Culture - Preliminary No growth in 4 days 06/05/18 19:58 Blood - Peripheral Anaerobic Blood Culture - Preliminary No growth in 4 days - Procedures central line placement. Assessment and Plan - Plan This patient is a 68-year-old female from a snf facility. She has a history of hypertension dyslipidemia and pulmonary embolus and was on Xarelto. She was brought into our emergency department after she was found to have systolic blood pressure in the 60s and was having dark colored stools. 1. Fungal UTI probable contamination with her worsening renal function and high suspicion for contamination and not real Bladder or kidney infection, no BSI I held this medicine at this time. Blood cultures are pending, urinalysis showed findings concerning for a fungal UTI. Will follow up on the urine culture. continue Fluconazole Patient had an increase in her serum creatinine today, the dose of fluconazole was renally adjusted. 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 2. Acute kidney injury possibly prerenal and medication induced. IV fluids switched to normal saline. Lisinopril held, today worsening to 2.6 recommended by Nephrology to continue IV fluids albumin and Lasix. asked for BNP to get the volume overload possible she has not got CHF. discontinued Lasix by Nephrology specialist 3. Hemorrhagic shock secondary to GI bleed resolved, ASA on Hold, No signs of GI bleeding now. EGD and colonoscopy were done which showed severe erythematous gastritis as well as findings consistent with ischemic colitis Continue Protonix drip. Surgery recommending nonoperative management. 4. Ischemic colitis Off antibiotics, Non operative management by Surgical team. 5. Acute hypoxic respiratory failure secondary to COPD exacerbation, Continue Bronchodilator, Mucolytic incentive spirometry BiPAP as needed, Oxygen as needed. outcomes specialist following. not improving condition, asked for new BNP. 6. Anxiety disorder, Benzodiazepines, 7. Peripheral neuropathy Continue gabapentin 8. Dyslipidemia Continue statin 9. Obesity strongly recommended diet and exercise as outpatient. Protonix for GI prophylaxis, no pharmacotherapy for DVT prophylaxis as the patient had a GI bleed. Continue PT patient was encouraged to participate in the physical therapy. Code Status: Full code. Discussed Condition With: Patient and Nurse. Discharge Planning: Not yet clear for discharge.
[2018-06-10] MEDS ORDERED: Potassium Chloride 25 MEQ Effervescent Tablet PO ONE ×2 (12:25→14:30)
[2018-06-10] MEDS ORDERED: Acetaminophen 325 MG Tablet PO ONE (12:30)
[2018-06-10] MEDS ORDERED: Sodium Chlor 0.9% Inj 250 ML IV.SIG SCH (13:00)
--- NOTE | 2018-06-10 18:25 | P.PNNP ---
Subjective Interval history: Received packed red blood cell Physical Exam Vital signs: Vital Signs 06/09/18 19:55 06/09/18 20:00 06/09/18 22:00 Temperature 99.8 F H Pulse Rate 86 84 91 H Respiratory Rate 17 23 Blood Pressure 131/58 L Pulse Oximetry 94 L 100 06/09/18 23:29 06/10/18 00:00 06/10/18 02:00 Temperature 99.1 F Pulse Rate 73 77 72 Respiratory Rate 16 18 Blood Pressure 109/52 L Pulse Oximetry 99 06/10/18 04:00 06/10/18 06:00 06/10/18 06:39 Temperature 98.1 F Pulse Rate 80 72 Respiratory Rate 21 Blood Pressure 115/53 L Pulse Oximetry 99 100 06/10/18 07:28 06/10/18 08:00 06/10/18 10:00 Temperature Pulse Rate 91 H 71 76 Respiratory Rate 20 21 Blood Pressure Pulse Oximetry 100 06/10/18 12:00 06/10/18 13:22 06/10/18 14:00 Temperature Pulse Rate 50 L 75 53 L Respiratory Rate 21 18 Blood Pressure Pulse Oximetry 06/10/18 15:11 06/10/18 16:00 Temperature Pulse Rate 79 51 L Respiratory Rate 19 21 Blood Pressure Pulse Oximetry Intake & Output 06/09/18 06/10/18 06/10/18 18:59 06:59 18:59 Intake Total 1420 / 1420 1450 / 1450 Output Total 2225 / 2225 1300 / 1300 Balance -805 / -805 150 / 150 Weight 98.1 kg Intake: IV 700 / 700 1150 / 1150 NS Inj 1,000 ML @ 50 mls/hr IV. 1000 / 1000 CONT .Q20H [facility] Rx#:[id number] 1/2 Normal Saline Inj 1,000 ML 600 / 600 @ 50 mls/hr IV.CONT .Q20H [facility] Rx#:[id number] Flexbumin 25% Inj 100 ML @ 60 100 / 100 100 / 100 mls/hr IV.SIG Q12H [facility] Rx#: [id number] Diflucan 100 mg Premix Bag 50 50 / 50 ML @ 50 mls/hr IV.SIG Q24H [facility] Rx#:[id number] Oral 720 / 720 300 / 300 Output: Stool 300 / 300 Urine Amount (Catheter) 2225 / 2225 1000 / 1000 Indwelling Urethral Catheter 2225 / 2225 1000 / 1000 Other: Date of Last Bowel Movement 06/09/18 06/10/18 06/09/18 # Bowel Movements 1 # Incontinent Bowel Movements 1 Narrative: General patient in mild distress, complaining of shortness of breath. Wheezing on physical examination. She is able to speak in full sentences. HEENT extraocular movements are intact, clear oropharyngeal mucosa Cardiovascular S1-S2 audible Respiratory wheezing auscultated bilaterally. Abdomen soft, nontender, nondistended. Bowel sounds present.. Extremities no edema 2+ distal pulses in bilateral upper and lower extremities Neuro sensation is intact bilaterally. The patient is weak in all 4 of her extremities however is able to move them. - Urinary Catheter Management Indwelling Urethral Catheter Cath placed during this visit: yes Reason for continuing: Hourly intake/output Insertion date: 06/08/18 Insertion time: 16:15 Assessment and Plan - Assessment (1) STEPHIE (acute kidney injury) Code(s): N17.9 - Acute kidney failure, unspecified Status: Acute (2) GI bleed requiring more than 4 units of blood in 24 hours, ICU, or surgery Code(s): K92.2 - Gastrointestinal hemorrhage, unspecified Status: Acute (3) Anemia Code(s): D64.9 - Anemia, unspecified Status: Acute (4) Shock Code(s): R57.9 - Shock, unspecified Status: Acute (5) Sepsis Code(s): A41.9 - Sepsis, unspecified organism Status: Acute - Plan Patient is getting IV fluid however the urine output is not recorded correctly She is getting Diflucan for yeast infection Acute renal failure appears to be due to hypoperfusion of the kidney as a result of sepsis We will DC Lasix continue to monitor BMP Increased urine output
[2018-06-10] MEDS: Insulin Detemir Inj 1,000 UNIT/10 ML Vial SQ SCH (21:52)
[2018-06-11] MEDS: Insulin NovoLOG Aspart Correctional Sugar Inj SQ SCH ×6 (03:03→21:27)
[2018-06-11 03:49] LABS: Hematocrit 25.1 % (35.0-46.0); Hemoglobin 8.3 gm/dL (11.6-15.3); Mean Corpuscular HGB Conc 32.9 % (32.0-36.0); Mean Corpuscular Hemoglobin 29.4 pg (27.0-34.0); Mean Corpuscular Volume 89.6 fL (80.0-100.0); Platelet Count 161 th/mm3 (150-450); Red Cell Distribution Width 15.8 % (11.6-17.2); White Blood Count 6.2 th/mm3 (4.0-11.0)
[2018-06-11 04:11] LABS: Calcium 7.9 mg/dL (8.5-10.1); Carbon Dioxide 30.3 meq/L (21.0-32.0); Potassium 3.4 meq/L (3.5-5.1)
[2018-06-11] MEDS: Morphine Inj 4 MG/ML Vial IV.PUSH PRN ×2 (04:14→17:25)
[2018-06-11] MEDS: Albumin Human 25% Inj 100 ML IV.SIG SCH ×2 (04:15→15:56)
[2018-06-11] MEDS: Sod Chloride 0.9% Inj 1,000 ML IV.CONT SCH (05:13)
[2018-06-11] MEDS: Polyvinyl Alcohol/Povidone PF Opth Drops 0.4 ML Dropperette EACH EYE SCH ×3 (06:52→21:28)
[2018-06-11] MEDS: Oral Hygiene Kit OROPHARYNG SCH ×3 (06:52→15:58)
[2018-06-11] MEDS: Chlorhexidine 0.12% Oral Kit 15 ML UDC OROPHARYNG SCH ×2 (09:59→21:27)
[2018-06-11] MEDS: Budesonide-Formoterol 160/4.5 MCG 6 GM Inhaler INH SCH ×2 (10:00→21:32)
[2018-06-11] MEDS: Pantoprazole Inj 40 MG Vial IV.PUSH SCH ×2 (10:02→21:26)
[2018-06-11] MEDS: Senna/Docusate Sodium 8.6/50 MG Tablet PO SCH ×2 (10:03→21:27)
[2018-06-11] MEDS: Carvedilol 12.5 MG Tablet PO SCH ×2 (10:03→21:28)
[2018-06-11] MEDS: Gabapentin 100 MG Capsule PO SCH ×3 (10:03→19:08)
[2018-06-11] MEDS: traZODone 50 MG Tablet PO SCH (10:03)
[2018-06-11] MEDS: Lactic Acid (Ammonium Lactate) 12% Lotion 225 GM Bottle TOPICAL SCH (10:04)
--- NOTE | 2018-06-11 10:44 | P.PNNP ---
Subjective Interval history: Patient sitting in the chair feels tired Physical Exam Vital signs: Vital Signs 06/10/18 12:00 06/10/18 13:22 06/10/18 14:00 Temperature 99.2 F Pulse Rate 80 75 53 L Respiratory Rate 21 18 Blood Pressure 133/63 Pulse Oximetry 99 06/10/18 14:45 06/10/18 15:11 06/10/18 16:00 Temperature 100 F H 98.1 F Pulse Rate 76 79 80 Respiratory Rate 15 19 21 Blood Pressure 123/65 115/53 L Pulse Oximetry 99 06/10/18 17:00 06/10/18 18:00 06/10/18 19:23 Temperature 99.4 F Pulse Rate 78 76 75 Respiratory Rate 15 20 Blood Pressure 123/64 Pulse Oximetry 98 98 06/10/18 20:00 06/10/18 22:00 06/11/18 00:00 Temperature 99.3 F 99 F Pulse Rate 76 76 67 Respiratory Rate 22 18 Blood Pressure 122/66 117/60 Pulse Oximetry 96 96 06/11/18 00:09 06/11/18 02:00 06/11/18 03:00 Temperature Pulse Rate 67 70 76 Respiratory Rate 22 18 Blood Pressure Pulse Oximetry 06/11/18 04:00 06/11/18 05:50 06/11/18 06:00 Temperature 99.0 F Pulse Rate 76 76 Respiratory Rate 18 14 Blood Pressure 134/63 Pulse Oximetry 95 06/11/18 07:41 Temperature Pulse Rate 96 H Respiratory Rate 22 Blood Pressure Pulse Oximetry 95 Intake & Output 06/10/18 06/11/18 06/11/18 18:59 06:59 18:59 Intake Total 950 / 950 1400 / 1400 Output Total 650 / 650 1250 / 1250 Balance 300 / 300 150 / 150 Weight 97.6 kg Intake: IV 100 / 100 1100 / 1100 NS Inj 1,000 ML @ 50 mls/hr IV. 1000 / 1000 CONT .Q20H [facility] Rx#:[id number] Flexbumin 25% Inj 100 ML @ 60 100 / 100 100 / 100 mls/hr IV.SIG Q12H [facility] Rx#: [id number] Oral 700 / 700 200 / 200 Other 150 / 150 100 / 100 Rbc As-3 Leukoreduced Unit 150 / 150 [id number] Intake (Blood Product) Amt 0 / 0 Rbc As-3 Leukoreduced Unit 0 / 0 [id number] Output: Urine 1250 / 1250 Urine Amount (Catheter) 650 / 650 Indwelling Urethral Catheter 650 / 650 Other: Other Intake Source Rbc As-3 Leukoreduced Unit Saline Solution [id number] Date of Last Bowel Movement 06/09/18 06/09/18 Narrative: General patient in mild distress, complaining of shortness of breath. Wheezing on physical examination. She is able to speak in full sentences. HEENT extraocular movements are intact, clear oropharyngeal mucosa Cardiovascular S1-S2 audible Respiratory wheezing auscultated bilaterally. Abdomen soft, nontender, nondistended. Bowel sounds present.. Extremities no edema 2+ distal pulses in bilateral upper and lower extremities Neuro sensation is intact bilaterally. The patient is weak in all 4 of her extremities however is able to move them. - Urinary Catheter Management Indwelling Urethral Catheter Cath placed during this visit: yes Reason for continuing: Hourly intake/output Insertion date: 06/08/18 Insertion time: 16:15 Assessment and Plan - Assessment (1) STEPHIE (acute kidney injury) Code(s): N17.9 - Acute kidney failure, unspecified Status: Acute (2) GI bleed requiring more than 4 units of blood in 24 hours, ICU, or surgery Code(s): K92.2 - Gastrointestinal hemorrhage, unspecified Status: Acute (3) Anemia Code(s): D64.9 - Anemia, unspecified Status: Acute (4) Shock Code(s): R57.9 - Shock, unspecified Status: Acute (5) Sepsis Code(s): A41.9 - Sepsis, unspecified organism Status: Acute - Plan Patient is getting IV fluid however the urine output is not recorded correctly She is getting Diflucan for yeast infection Acute renal failure appears to be due to hypoperfusion of the kidney as a result of sepsis Creatinine is higher 2.7 monitor BMP, potassium is low replace, stop IV fluid due to edema Increased urine output
[2018-06-11] MEDS: Mupirocin 2% Nasal Oint Topical Syringe EACH NARE SCH ×2 (13:41→21:26)
[2018-06-11] MEDS ORDERED: Potassium Chloride 25 MEQ Effervescent Tablet PO ONE (14:30)
--- NOTE | 2018-06-11 14:31 | P.PN ---
Subjective Interval history: This is a pleasant 68 y/o Female who was brought in from [facility], has Hypertension, Hyperlipidemia, PE on Xarelto She was brought into our emergency department after she was found to have systolic blood pressure in the 60s and was having dark colored stools. 06/08: Seen in her bedroom continue with Shortness of breath, swollen legs, increased Creatinine level to 2.1 asked for Nephrology specialist following. 06/09: seen in her bedroom, in the presence of nurse Miss Aguillon, her renal function is worsened today to Creatinine 2.5 Nephrology specialist following, thinking in Hypoperfusion and Third spacing, Urinary sodium 7 pre renal azotemia, recommended to continue Lasix and albumin, to improve urine output, also may improve her respiratory function, 06/10: Stable in her bedroom, improving Clinically not yet ready to transfer to the floor. 06/11: Continue worsening her renal function, discussed at this time with doctor Carnes and recommended to remove IV fluids, yesterday has removed Lasix, clinically improving, and working with Physical Therapy. No nausea, vomit or diarrhea. Physical Exam Vital signs: Vital Signs 06/10/18 14:45 06/10/18 15:11 06/10/18 16:00 Temperature 100 F H 98.1 F Pulse Rate 76 79 80 Respiratory Rate 15 19 21 Blood Pressure 123/65 115/53 L Pulse Oximetry 99 06/10/18 17:00 06/10/18 18:00 06/10/18 19:23 Temperature 99.4 F Pulse Rate 78 76 75 Respiratory Rate 15 20 Blood Pressure 123/64 Pulse Oximetry 98 98 06/10/18 20:00 06/10/18 22:00 06/11/18 00:00 Temperature 99.3 F 99 F Pulse Rate 76 76 67 Respiratory Rate 22 18 Blood Pressure 122/66 117/60 Pulse Oximetry 96 96 06/11/18 00:09 06/11/18 02:00 06/11/18 03:00 Temperature Pulse Rate 67 70 76 Respiratory Rate 22 18 Blood Pressure Pulse Oximetry 06/11/18 04:00 06/11/18 05:50 06/11/18 06:00 Temperature 99.0 F Pulse Rate 76 76 Respiratory Rate 18 14 Blood Pressure 134/63 Pulse Oximetry 95 06/11/18 07:41 06/11/18 11:58 Temperature Pulse Rate 96 H 84 Respiratory Rate 22 22 Blood Pressure Pulse Oximetry 95 Intake & Output 06/10/18 06/11/18 06/11/18 18:59 06:59 18:59 Intake Total 950 / 950 1400 / 1400 Output Total 650 / 650 1250 / 1250 Balance 300 / 300 150 / 150 Weight 97.6 kg Intake: IV 100 / 100 1100 / 1100 NS Inj 1,000 ML @ 50 mls/hr IV. 1000 / 1000 CONT .Q20H [facility] Rx#:[id number] Flexbumin 25% Inj 100 ML @ 60 100 / 100 100 / 100 mls/hr IV.SIG Q12H [facility] Rx#: [id number] Oral 700 / 700 200 / 200 Other 150 / 150 100 / 100 Rbc As-3 Leukoreduced Unit 150 / 150 [id number] Intake (Blood Product) Amt 0 / 0 Rbc As-3 Leukoreduced Unit 0 / 0 [id number] Output: Urine 1250 / 1250 Urine Amount (Catheter) 650 / 650 Indwelling Urethral Catheter 650 / 650 Other: Other Intake Source Rbc As-3 Leukoreduced Unit Saline Solution [id number] Date of Last Bowel Movement 06/09/18 06/09/18 Narrative: General Mild acute distress. HEENT extraocular movements are intact, clear oropharyngeal mucosa Cardiovascular S1-S2 audible Respiratory severe Decreased breath sounds bilateral, expiratory wheezing present no crackles. Abdomen soft, nontender, nondistended. Bowel sounds present.. Extremities no edema 2+ distal pulses in bilateral upper and lower extremities Neuro sensation is intact bilaterally. The patient is weak in all 4 of her extremities however is able to move them. - Urinary Catheter Management Indwelling Urethral Catheter Cath placed during this visit: yes Reason for continuing: Hourly intake/output Insertion date: 06/08/18 Insertion time: 16:15 Results - Labs CBC & Chem 7: 06/11/18 02:50 06/11/18 02:50 Laboratory Results - last 24 hr 06/10/18 06/10/18 06/11/18 12:56 21:19 01:05 WBC RBC Hgb Hct MCV MCH MCHC RDW Plt Count MPV Sodium Potassium Chloride Carbon Dioxide Anion Gap BUN Creatinine Estimated GFR POC Glucose 103 99 Random Glucose Calcium Blood Type A Positive Antibody Screen Negative MTS Gel Crossmatch See Detail Bld Prod Order Comment 06/11/18 06/11/1818 02:50 02:50 04:02 WBC 6.2 RBC 2.80 L Hgb 8.3 L Hct 25.1 L MCV 89.6 MCH 29.4 MCHC 32.9 RDW 15.8 Plt Count 161 MPV 8.0 Sodium 146 H Potassium 3.4 L Chloride 106 Carbon Dioxide 30.3 Anion Gap 10 BUN 12 Creatinine 2.70 H Estimated GFR 17 L POC Glucose 82 Random Glucose 74 Calcium 7.9 L Blood Type Antibody Screen MTS Gel Crossmatch Bld Prod Order Comment 06/11/18 06/11/18 09:14 13:17 WBC RBC Hgb Hct MCV MCH MCHC RDW Plt Count MPV Sodium Potassium Chloride Carbon Dioxide Anion Gap BUN Creatinine Estimated GFR POC Glucose 93 94 Random Glucose Calcium Blood Type Antibody Screen MTS Gel Crossmatch Bld Prod Order Comment Microbiology 06/08/18 17:45 Catheterized Urine Urine Culture - Final Lisbeth glabrata 06/05/18 19:50 Blood - Peripheral Aerobic Blood Culture - Final No growth in 5 days 06/05/18 19:50 Blood - Peripheral Anaerobic Blood Culture - Final No growth in 5 days 06/05/18 19:58 Blood - Peripheral Aerobic Blood Culture - Final No growth in 5 days 06/05/18 19:58 Blood - Peripheral Anaerobic Blood Culture - Final No growth in 5 days - Procedures central line placement. Assessment and Plan - Plan This patient is a 68-year-old female from a [facility]. She has a history of hypertension dyslipidemia and pulmonary embolus and was on Xarelto. She was brought into our emergency department after she was found to have systolic blood pressure in the 60s and was having dark colored stools. 1. Fungal UTI probable contamination with her worsening renal function and high suspicion for contamination and not real Bladder or kidney infection, no BSI I held this medicine at this time. Blood cultures are pending, urinalysis showed findings concerning for a fungal UTI. Will follow up on the urine culture. continue Fluconazole Patient had an increase in her serum creatinine today, the dose of fluconazole was renally adjusted. 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 2. Acute kidney injury possibly prerenal and medication induced. IV fluids switched to normal saline. Lisinopril held, today worsening to 2.7 recommended by Nephrology to continue IV fluids albumin and Lasix. asked for BNP to get the volume overload possible she has not got CHF. discontinued Lasix by Nephrology specialist, and today removed IV fluids. 3. Hemorrhagic shock secondary to GI bleed resolved, ASA on Hold, No signs of GI bleeding now. EGD and colonoscopy were done which showed severe erythematous gastritis as well as findings consistent with ischemic colitis Continue Protonix drip. Surgery recommending nonoperative management. 4. Ischemic colitis Off antibiotics, Non operative management by Surgical team. 5. Acute hypoxic respiratory failure secondary to COPD exacerbation, Continue Bronchodilator, Mucolytic incentive spirometry BiPAP as needed, Oxygen as needed. helpdesk specialist following. not improving condition, asked for new BNP. 6. Anxiety disorder, Benzodiazepines, 7. Peripheral neuropathy Continue gabapentin 8. Dyslipidemia Continue statin 9. Obesity strongly recommended diet and exercise as outpatient. 10. Hypokalemia replaced and following. Protonix for GI prophylaxis, no pharmacotherapy for DVT prophylaxis as the patient had a GI bleed. Continue PT patient was encouraged to participate in the physical therapy. Code Status: Full code. Discussed Condition With: Patient, nurse and Nephrology specialist Doctor Deyvi. Discharge Planning: Not yet clear for discharge.
--- NOTE | 2018-06-11 18:31 | P.PN ---
Subjective Interval history: On O2 2L. Awake and seems Comfortable. Renal profile noted. CR 2.7. Taking her diet OK. Physical Exam Vital signs: Vital Signs 06/10/18 19:23 06/10/18 20:00 06/10/18 22:00 Temperature 99.3 F Pulse Rate 75 76 76 Respiratory Rate 20 22 Blood Pressure 122/66 Pulse Oximetry 98 96 06/11/18 00:00 06/11/18 00:09 06/11/18 02:00 Temperature 99 F Pulse Rate 67 67 70 Respiratory Rate 18 22 Blood Pressure 117/60 Pulse Oximetry 96 06/11/18 03:00 06/11/18 04:00 06/11/18 05:50 Temperature 99.0 F Pulse Rate 76 76 Respiratory Rate 18 18 14 Blood Pressure 134/63 Pulse Oximetry 95 06/11/18 06:00 06/11/18 07:41 06/11/18 11:58 Temperature Pulse Rate 76 96 H 84 Respiratory Rate 22 22 Blood Pressure Pulse Oximetry 95 Intake & Output 06/10/18 06/11/18 06/11/18 18:59 06:59 18:59 Intake Total 950 / 950 1500 / 1500 Output Total 650 / 650 1250 / 1250 Balance 300 / 300 250 / 250 Weight 97.6 kg Intake: IV 100 / 100 1200 / 1200 NS Inj 1,000 ML @ 50 mls/hr IV. 1000 / 1000 CONT .Q20H [facility] Rx#:[id number] Flexbumin 25% Inj 100 ML @ 60 100 / 100 200 / 200 mls/hr IV.SIG Q12H [facility] Rx#: [id number] Oral 700 / 700 200 / 200 Other 150 / 150 100 / 100 Rbc As-3 Leukoreduced Unit 150 / 150 [id number] Intake (Blood Product) Amt 0 / 0 Rbc As-3 Leukoreduced Unit 0 / 0 [id number] Output: Urine 1250 / 1250 Urine Amount (Catheter) 650 / 650 Indwelling Urethral Catheter 650 / 650 Other: Other Intake Source Rbc As-3 Leukoreduced Unit Saline Solution [id number] Date of Last Bowel Movement 06/09/18 06/09/18 Narrative: Alert and awake GENERAL: Elderly W/F pale. SKIN: Warm and dry. HEAD: Atraumatic. Normocephalic. EYES: Pupils equal and round. No scleral icterus. No injection or drainage. ENT: No nasal bleeding or discharge. Mucous membranes pink and moist. NECK: Trachea midline. No JVD. CARDIOVASCULAR: Regular rate and rhythm. RESPIRATORY: No accessory muscle use. Few basal crackles to auscultation. Breath sounds equal bilaterally. GASTROINTESTINAL: Abdomen soft, non-tender, nondistended. Hepatic and splenic margins not palpable. MUSCULOSKELETAL: Extremities without clubbing, cyanosis, or edema. No obvious deformities. NEUROLOGICAL: Awake and alert. No obvious cranial nerve deficits. Motor grossly within normal limits. Normal speech. PSYCHIATRIC: Appropriate mood and affect. - Urinary Catheter Management Indwelling Urethral Catheter Cath placed during this visit: yes Reason for continuing: Hourly intake/output Insertion date: 05/20/18 Insertion time: 06:00 Results - Labs CBC & Chem 7: 06/11/18 02:50 06/11/18 02:50 Laboratory Results - last 24 hr 06/10/18 06/10/18 06/11/18 12:56 21:19 01:05 WBC RBC Hgb Hct MCV MCH MCHC RDW Plt Count MPV Sodium Potassium Chloride Carbon Dioxide Anion Gap BUN Creatinine Estimated GFR POC Glucose 103 99 Random Glucose Calcium Blood Type A Positive Antibody Screen Negative MTS Gel Crossmatch See Detail Bld Prod Order Comment 06/11/18 06/11/18 06/11/18 02:50 02:50 04:02 WBC 6.2 RBC 2.80 L Hgb 8.3 L Hct 25.1 L MCV 89.6 MCH 29.4 MCHC 32.9 RDW 15.8 Plt Count 161 MPV 8.0 Sodium 146 H Potassium 3.4 L Chloride 106 Carbon Dioxide 30.3 Anion Gap 10 BUN 12 Creatinine 2.70 H Estimated GFR 17 L POC Glucose 82 Random Glucose 74 Calcium 7.9 L Blood Type Antibody Screen MTS Gel Crossmatch Bld Prod Order Comment 06/11/18 06/11/18 06/11/18 09:14 13:17 17:14 WBC RBC Hgb Hct MCV MCH MCHC RDW Plt Count MPV Sodium Potassium Chloride Carbon Dioxide Anion Gap BUN Creatinine Estimated GFR POC Glucose 93 94 132 H Random Glucose Calcium Blood Type Antibody Screen MTS Gel Crossmatch Bld Prod Order Comment Microbiology 06/08/18 17:45 Catheterized Urine Urine Culture - Final Lisbeth glabrata - Procedures central line placement. Assessment and Plan - Assessment (1) GI bleed requiring more than 4 units of blood in 24 hours, ICU, or surgery Code(s): K92.2 - Gastrointestinal hemorrhage, unspecified Status: Acute (2) Anemia Code(s): D64.9 - Anemia, unspecified Status: Acute (3) Shock Code(s): R57.9 - Shock, unspecified Status: Acute (4) COPD (chronic obstructive pulmonary disease) Code(s): J44.9 - Chronic obstructive pulmonary disease, unspecified Status: Chronic (5) Major depression, recurrent Code(s): F33.9 - Major depressive disorder, recurrent, unspecified Status: Acute (6) Sepsis Code(s): A41.9 - Sepsis, unspecified organism Status: Acute (7) Atelectasis Code(s): J98.11 - Atelectasis Status: Acute - Plan 1. O2 at 2 L.and wean to RA. Keep sat >92. 2. transfer to tele 3. Duonebs qid prn. 4. IS bedside qid. 5. PT to help activity. 6. PFT in am. (4) COPD (chronic obstructive pulmonary disease) Qualifiers: COPD type: unspecified COPD Qualified Code(s): J44.9 - Chronic obstructive pulmonary disease, unspecified
[2018-06-11] MEDS: Insulin Detemir Inj 1,000 UNIT/10 ML Vial SQ SCH (21:48)
[2018-06-11] MEDS: RESP: Racemic Epinephrine 2.25% 0.5 ML Neb NEB PRN (22:05)
[2018-06-12] MEDS: Insulin NovoLOG Aspart Correctional Sugar Inj SQ SCH ×5 (00:17→20:44)
[2018-06-12] MEDS: Oral Hygiene Kit OROPHARYNG SCH ×4 (00:18→18:05)
[2018-06-12] MEDS: Acetaminophen 325 MG Tablet PO PRN (00:20)
[2018-06-12] MEDS: RESP: Racemic Epinephrine 2.25% 0.5 ML Neb NEB PRN ×3 (00:57→08:50)
[2018-06-12] MEDS: Albumin Human 25% Inj 100 ML IV.SIG SCH ×2 (05:00→17:58)
[2018-06-12 08:29] LABS: Carbon Dioxide 29.7 meq/L (21.0-32.0); Potassium 3.1 meq/L (3.5-5.1)
[2018-06-12] MEDS: Budesonide-Formoterol 160/4.5 MCG 6 GM Inhaler INH SCH ×2 (09:22→20:46)
[2018-06-12] MEDS: Morphine Inj 4 MG/ML Vial IV.PUSH PRN (09:22)
[2018-06-12] MEDS: Pantoprazole Inj 40 MG Vial IV.PUSH SCH ×2 (09:24→20:40)
[2018-06-12] MEDS: Gabapentin 100 MG Capsule PO SCH ×3 (09:24→18:05)
[2018-06-12] MEDS: traZODone 50 MG Tablet PO SCH (09:25)
[2018-06-12] MEDS: Mupirocin 2% Nasal Oint Topical Syringe EACH NARE SCH ×2 (09:25→20:45)
[2018-06-12] MEDS: Senna/Docusate Sodium 8.6/50 MG Tablet PO SCH ×2 (09:25→20:40)
[2018-06-12] MEDS: Carvedilol 12.5 MG Tablet PO SCH ×2 (09:25→22:44)
[2018-06-12] MEDS: Lactic Acid (Ammonium Lactate) 12% Lotion 225 GM Bottle TOPICAL SCH (09:26)
--- NOTE | 2018-06-12 11:06 | P.PN ---
Subjective Interval history: In respiratory distress today and possibly aspirated last PM. Has wheezing and cough. Anxious. On a Ventimask with sats only 84. Physical Exam Vital signs: Vital Signs 06/11/18 11:31 06/11/18 11:58 06/11/18 12:00 Temperature 99.1 F Pulse Rate 85 84 79 Respiratory Rate 17 22 16 Blood Pressure 146/59 H 141/63 H Pulse Oximetry 95 06/11/18 12:30 06/11/18 13:00 06/11/18 13:30 Temperature Pulse Rate 81 82 81 Respiratory Rate 18 27 H 13 Blood Pressure 131/60 135/59 L 125/57 L Pulse Oximetry 95 06/11/18 14:00 06/11/18 14:30 06/11/18 15:00 Temperature Pulse Rate 83 85 80 Respiratory Rate 27 H 15 18 Blood Pressure 107/78 118/65 115/55 L Pulse Oximetry 06/11/18 15:31 06/11/18 16:00 06/11/18 17:00 Temperature 99.9 F H Pulse Rate 82 84 84 Respiratory Rate 24 24 21 Blood Pressure 137/60 137/60 Pulse Oximetry 93 L 06/11/18 18:00 06/11/18 18:08 06/11/18 18:30 Temperature Pulse Rate 83 83 86 Respiratory Rate 20 21 23 Blood Pressure 127/60 118/56 L Pulse Oximetry 100 100 100 06/11/18 19:00 06/11/18 19:30 06/11/18 20:00 Temperature 100.3 F H Pulse Rate 84 85 84 Respiratory Rate 22 23 22 Blood Pressure 122/59 L 114/57 L 121/56 L Pulse Oximetry 100 93 L 94 L 06/11/18 20:30 06/11/18 21:00 06/11/18 21:13 Temperature Pulse Rate 84 83 Respiratory Rate 19 19 Blood Pressure 119/56 L 113/56 L Pulse Oximetry 92 L 91 L 97 06/11/18 21:30 06/11/18 21:40 06/11/18 22:00 Temperature Pulse Rate 93 H 93 H 84 Respiratory Rate 23 22 22 Blood Pressure 126/58 L 124/56 L Pulse Oximetry 91 L 94 L 06/11/18 22:05 06/11/18 22:30 06/11/18 23:00 Temperature Pulse Rate 85 81 81 Respiratory Rate 22 18 18 Blood Pressure 120/58 L 121/59 L Pulse Oximetry 92 L 92 L 06/11/18 23:30 06/12/18 00:00 06/12/18 00:30 Temperature 101 F H Pulse Rate 94 H 80 86 Respiratory Rate 18 19 20 Blood Pressure 128/59 L 138/58 L 144/61 H Pulse Oximetry 87 L 94 L 90 L 06/12/18 00:57 06/12/18 01:00 06/12/18 01:30 Temperature Pulse Rate 79 81 80 Respiratory Rate 18 19 18 Blood Pressure 124/57 L 127/58 L Pulse Oximetry 94 L 95 06/12/18 02:00 06/12/18 02:30 06/12/18 03:00 Temperature Pulse Rate 79 82 78 Respiratory Rate 18 18 18 Blood Pressure 119/55 L 114/57 L 115/57 L Pulse Oximetry 93 L 92 L 92 L 06/12/18 03:30 06/12/18 04:00 06/12/18 04:30 Temperature 98.7 F Pulse Rate 77 76 79 Respiratory Rate 18 18 18 Blood Pressure 115/55 L 112/55 L 130/58 L Pulse Oximetry 93 L 93 L 93 L 06/12/18 05:00 06/12/18 05:15 06/12/18 05:30 Temperature Pulse Rate 79 79 78 Respiratory Rate 19 22 20 Blood Pressure 111/55 L 123/58 L Pulse Oximetry 95 06/12/18 05:53 06/12/18 06:00 06/12/18 07:00 Temperature Pulse Rate 78 74 74 Respiratory Rate 18 16 Blood Pressure 138/63 Pulse Oximetry 96 06/12/18 07:44 06/12/18 08:53 Temperature Pulse Rate 87 Respiratory Rate 25 H Blood Pressure Pulse Oximetry 93 L Intake & Output 06/11/18 06/12/18 06/12/18 18:59 06:59 18:59 Intake Total 460 / 460 340 / 340 Output Total 300 / 300 400 / 400 Balance 160 / 160 -60 / -60 Weight 94.4 kg Intake: IV 100 / 100 Flexbumin 25% Inj 100 ML @ 60 100 / 100 mls/hr IV.SIG Q12H [facility] Rx#: [id number] Oral 360 / 360 240 / 240 Other 100 / 100 Output: Urine 300 / 300 Urine Amount (Catheter) 400 / 400 Indwelling Urethral Catheter 400 / 400 Other: Date of Last Bowel Movement 06/09/18 06/12/18 06/12/18 # Bowel Movements 1 1 Narrative: Alert and in Respiratory distress. GENERAL: Elderly W/F pale. SKIN: Cool and dry. HEAD: Atraumatic. Normocephalic. EYES: Pupils equal and round. No scleral icterus. No injection or drainage. ENT: No nasal bleeding or discharge. Mucous membranes pink and moist. NECK: Trachea midline. No JVD. CARDIOVASCULAR: Regular rate and rhythm. RESPIRATORY: Has accessory muscle use. Few basal crackles to auscultation. Extensive wheezing ++. Breath sounds equal bilaterally. GASTROINTESTINAL: Abdomen soft, non-tender, nondistended. Hepatic and splenic margins not palpable. MUSCULOSKELETAL: Extremities without clubbing, cyanosis, or edema. No obvious deformities. NEUROLOGICAL: Awake and alert. No obvious cranial nerve deficits. Motor grossly within normal limits. Normal speech. PSYCHIATRIC: Appropriate mood and affect. - Urinary Catheter Management Indwelling Urethral Catheter Cath placed during this visit: yes Reason for continuing: Hourly intake/output Insertion date: 06/08/18 Insertion time: 16:15 Results - Labs CBC & Chem 7: 06/11/18 02:50 06/12/18 04:33 Laboratory Results - last 24 hr 06/11/18 06/11/18 06/11/18 13:17 17:14 21:22 Sodium Potassium Chloride Carbon Dioxide Anion Gap BUN Creatinine Estimated GFR POC Glucose 94 132 H 101 Random Glucose Calcium 06/12/18 06/12/18 06/12/18 00:16 04:33 04:34 Sodium 142 Potassium 3.1 L Chloride 108 H Carbon Dioxide 29.7 Anion Gap 4 L BUN 12 Creatinine 2.76 H Estimated GFR 17 L POC Glucose 107 95 Random Glucose 81 Calcium 8.0 L 06/12/18 09:46 Sodium Potassium Chloride Carbon Dioxide Anion Gap BUN Creatinine Estimated GFR POC Glucose 101 Random Glucose Calcium Microbiology 06/08/18 17:45 Catheterized Urine Urine Culture - Final Lisbeth glabrata - Procedures central line placement. Assessment and Plan - Assessment (1) GI bleed requiring more than 4 units of blood in 24 hours, ICU, or surgery Code(s): K92.2 - Gastrointestinal hemorrhage, unspecified Status: Acute (2) Anemia Code(s): D64.9 - Anemia, unspecified Status: Acute (3) Shock Code(s): R57.9 - Shock, unspecified Status: Acute (4) COPD (chronic obstructive pulmonary disease) Code(s): J44.9 - Chronic obstructive pulmonary disease, unspecified Status: Chronic (5) Major depression, recurrent Code(s): F33.9 - Major depressive disorder, recurrent, unspecified Status: Acute (6) Sepsis Code(s): A41.9 - Sepsis, unspecified organism Status: Acute (7) Atelectasis Code(s): J98.11 - Atelectasis Status: Acute (8) Respiratory failure Code(s): J96.90 - Respiratory failure, unspecified, unspecified whether with hypoxia or hypercapnia Status: Acute (9) Aspiration pneumonia Code(s): J69.0 - Pneumonitis due to inhalation of food and vomit Status: Acute (10) Mixed personality disorder Code(s): F60.89 - Other specific personality disorders Status: Suspected - Plan 1. Place on BiPAP and titrate O2. 2. Add Solumedrol 40 Mg BID IV 3. Duonebs qid 4. Cont antibiotics 5. PT to help activity. 6. ABG and CBC and CXR today (4) COPD (chronic obstructive pulmonary disease) Qualifiers: COPD type: unspecified COPD Qualified Code(s): J44.9 - Chronic obstructive pulmonary disease, unspecified
--- NOTE | 2018-06-12 11:57 | XR ---
EXAM DATE: 06/12/2018 12:00 AM EDT AGE/SEX: 68 years / Female INDICATIONS: Pneumonia. CLINICAL DATA: This is the patient's subsequent encounter. Patient reports that signs and symptoms h ave been present for 2 weeks and indicates a pain score of Nonresponsive. MEDICAL/SURGICAL HISTORY: . Chronic obstructive pulmonary disease. Hypertension. Pulmonary embo li. . Cholecystectomy COMPARISON: [facility], CHEST 1V SINGLE AP, 06/05/2018. . FINDINGS: 2 portable frontal views of the chest show no significant interval change. Bibasilar infiltrates as w ell as tiny bilateral pleural effusions are unchanged. Heart is normal in size. Bony structures are u nremarkable. CONCLUSION: Unchanged bibasal infiltrates and small effusions. Electronically signed by: Sy Denis MD 06/12/2018 11:56 AM EDT
[2018-06-12] MEDS: Chlorhexidine 0.12% Oral Kit 15 ML UDC OROPHARYNG SCH ×2 (12:05→20:44)
[2018-06-12 12:06] LABS: Hematocrit 27.5 % (35.0-46.0); Hemoglobin 9.2 gm/dL (11.6-15.3); Mean Corpuscular HGB Conc 33.6 % (32.0-36.0); Mean Corpuscular Hemoglobin 29.8 pg (27.0-34.0); Mean Corpuscular Volume 88.7 fL (80.0-100.0); Mean Platelet Volume 7.9 fL (7.0-11.0); Platelet Count 176 th/mm3 (150-450); Red Cell Distribution Width 15.8 % (11.6-17.2); White Blood Count 9.2 th/mm3 (4.0-11.0)
[2018-06-12 12:39] LABS: ABG Base Excess 3.6 mmol/L (-2-2); ABG PCO2 46 mmHg (38-42); ABG PO2 106 mmHG (61-120)
--- NOTE | 2018-06-12 12:40 | P.PN ---
Subjective Interval history: This is a pleasant 68 y/o Female who was brought in from , has Hypertension, Hyperlipidemia, PE on Xarelto She was brought into our emergency department after she was found to have systolic blood pressure in the 60s and was having dark colored stools. 06/08: Seen in her bedroom continue with Shortness of breath, swollen legs, increased Creatinine level to 2.1 asked for Nephrology specialist following. 06/09: seen in her bedroom, in the presence of nurse Miss Aguillon, her renal function is worsened today to Creatinine 2.5 Nephrology specialist following, thinking in Hypoperfusion and Third spacing, Urinary sodium 7 pre renal azotemia, recommended to continue Lasix and albumin, to improve urine output, also may improve her respiratory function, 06/10: Stable in her bedroom, improving Clinically not yet ready to transfer to the floor. 06/11: Continue worsening her renal function, discussed at this time with doctor Carnes and recommended to remove IV fluids, yesterday has removed Lasix, clinically improving, and working with Physical Therapy. 06/12: found in respiratory distress, discussed with nurse Probable she had been aspirated during the night, recommended by teacher specialist, BiPAP and titrate Oxygen, Added Solu-Medrol 40 mg BID IV, Bronchodilator, CXR no change. Physical Exam Vital signs: Vital Signs 06/11/18 13:00 06/11/18 13:30 06/11/18 14:00 Temperature Pulse Rate 82 81 83 Respiratory Rate 27 H 13 27 H Blood Pressure 135/59 L 125/57 L 107/78 Pulse Oximetry 95 06/11/18 14:30 06/11/18 15:00 06/11/18 15:31 Temperature Pulse Rate 85 80 82 Respiratory Rate 15 18 24 Blood Pressure 118/65 115/55 L 137/60 Pulse Oximetry 06/11/18 16:00 06/11/18 17:00 06/11/18 18:00 Temperature 99.9 F H Pulse Rate 84 84 83 Respiratory Rate 24 21 20 Blood Pressure 137/60 Pulse Oximetry 93 L 100 06/11/18 18:08 06/11/18 18:30 06/11/18 19:00 Temperature Pulse Rate 83 86 84 Respiratory Rate 21 23 22 Blood Pressure 127/60 118/56 L 122/59 L Pulse Oximetry 100 100 100 06/11/18 19:30 06/11/18 20:00 06/11/18 20:30 Temperature 100.3 F H Pulse Rate 85 84 84 Respiratory Rate 23 22 19 Blood Pressure 114/57 L 121/56 L 119/56 L Pulse Oximetry 93 L 94 L 92 L 06/11/18 21:00 06/11/18 21:13 06/11/18 21:30 Temperature Pulse Rate 83 93 H Respiratory Rate 19 23 Blood Pressure 113/56 L 126/58 L Pulse Oximetry 91 L 97 91 L 06/11/18 21:40 06/11/18 22:00 06/11/18 22:05 Temperature Pulse Rate 93 H 84 85 Respiratory Rate 22 22 22 Blood Pressure 124/56 L Pulse Oximetry 94 L 06/11/18 22:30 06/11/18 23:00 06/11/18 23:30 Temperature Pulse Rate 81 81 94 H Respiratory Rate 18 18 18 Blood Pressure 120/58 L 121/59 L 128/59 L Pulse Oximetry 92 L 92 L 87 L 06/12/18 00:00 06/12/18 00:30 06/12/18 00:57 Temperature 101 F H Pulse Rate 80 86 79 Respiratory Rate 19 20 18 Blood Pressure 138/58 L 144/61 H Pulse Oximetry 94 L 90 L 06/12/18 01:00 06/12/18 01:30 06/12/18 02:00 Temperature Pulse Rate 81 80 79 Respiratory Rate 19 18 18 Blood Pressure 124/57 L 127/58 L 119/55 L Pulse Oximetry 94 L 95 93 L 06/12/18 02:30 06/12/18 03:00 06/12/18 03:30 Temperature Pulse Rate 82 78 77 Respiratory Rate 18 18 18 Blood Pressure 114/57 L 115/57 L 115/55 L Pulse Oximetry 92 L 92 L 93 L 06/12/18 04:00 06/12/18 04:30 06/12/18 05:00 Temperature 98.7 F Pulse Rate 76 79 79 Respiratory Rate 18 18 19 Blood Pressure 112/55 L 130/58 L 111/55 L Pulse Oximetry 93 L 93 L 06/12/18 05:15 06/12/18 05:30 06/12/18 05:53 Temperature Pulse Rate 79 78 78 Respiratory Rate 22 20 18 Blood Pressure 123/58 L Pulse Oximetry 95 06/12/18 06:00 06/12/18 07:00 06/12/18 07:44 Temperature Pulse Rate 74 74 Respiratory Rate 16 Blood Pressure 138/63 Pulse Oximetry 96 93 L 06/12/18 08:53 06/12/18 12:01 Temperature Pulse Rate 87 Respiratory Rate 25 H 20 Blood Pressure Pulse Oximetry Intake & Output 06/11/18 06/12/18 06/12/18 18:59 06:59 18:59 Intake Total 460 / 460 340 / 340 Output Total 300 / 300 400 / 400 Balance 160 / 160 -60 / -60 Weight 94.4 kg Intake: IV 100 / 100 Flexbumin 25% Inj 100 ML @ 60 100 / 100 mls/hr IV.SIG Q12H [facility] Rx#: [id number] Oral 360 / 360 240 / 240 Other 100 / 100 Output: Urine 300 / 300 Urine Amount (Catheter) 400 / 400 Indwelling Urethral Catheter 400 / 400 Other: Date of Last Bowel Movement 06/09/18 06/12/18 06/12/18 # Bowel Movements 1 1 Narrative: General Mild acute distress. HEENT extraocular movements are intact, clear oropharyngeal mucosa, on BiPAP at this time Cardiovascular S1-S2 audible Respiratory severe Decreased breath sounds bilateral, expiratory wheezing present no crackles. Abdomen soft, nontender, nondistended. Bowel sounds present.. Extremities no edema 2+ distal pulses in bilateral upper and lower extremities Neuro sensation is intact bilaterally. The patient is weak in all 4 of her extremities however is able to move them. - Urinary Catheter Management Indwelling Urethral Catheter Cath placed during this visit: yes Reason for continuing: Hourly intake/output Insertion date: 06/08/18 Insertion time: 16:15 Results - Labs CBC & Chem 7: 06/12/18 11:49 06/12/18 04:33 Laboratory Results - last 24 hr 06/11/18 06/11/18 06/11/18 13:17 17:14 21:22 WBC RBC Hgb Hct MCV MCH MCHC RDW Plt Count MPV Sodium Potassium Chloride Carbon Dioxide Anion Gap BUN Creatinine Estimated GFR POC Glucose 94 132 H 101 Random Glucose Calcium 06/12/18 06/12/18 06/12/18 00:16 04:33 04:34 WBC RBC Hgb Hct MCV MCH MCHC RDW Plt Count MPV Sodium 142 Potassium 3.1 L Chloride 108 H Carbon Dioxide 29.7 Anion Gap 4 L BUN 12 Creatinine 2.76 H Estimated GFR 17 L POC Glucose 107 95 Random Glucose 81 Calcium 8.0 L 06/12/18 06/12/18 06/12/18 09:46 11:49 12:21 WBC 9.2 RBC 3.10 L Hgb 9.2 L Hct 27.5 L MCV 88.7 MCH 29.8 MCHC 33.6 RDW 15.8 Plt Count 176 MPV 7.9 Sodium Potassium Chloride Carbon Dioxide Anion Gap BUN Creatinine Estimated GFR POC Glucose 101 95 Random Glucose Calcium Microbiology 06/08/18 17:45 Catheterized Urine Urine Culture - Final Lisbeth glabrata - Imaging Impressions Chest X-Ray 06/12/18 00:00 CONCLUSION: Unchanged bibasal infiltrates and small effusions. - Procedures central line placement. Assessment and Plan - Plan This patient is a 68-year-old female from a [facility]. She has a history of hypertension dyslipidemia and pulmonary embolus and was on Xarelto. She was brought into our emergency department after she was found to have systolic blood pressure in the 60s and was having dark colored stools. 1. Fungal UTI probable contamination with her worsening renal function and high suspicion for contamination and not real Bladder or kidney infection, no BSI I held this medicine at this time. Blood cultures are pending, urinalysis showed findings concerning for a fungal UTI. Will follow up on the urine culture. continue Fluconazole Patient had an increase in her serum creatinine today, the dose of fluconazole was renally adjusted. 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 2. Acute kidney injury possibly prerenal and medication induced. IV fluids switched to normal saline. Lisinopril held, today worsening to 2.7 recommended by Nephrology to continue IV fluids albumin and Lasix. asked for BNP to get the volume overload possible she has not got CHF. discontinued Lasix by Nephrology specialist, and today removed IV fluids. 3. Hemorrhagic shock secondary to GI bleed resolved, ASA on Hold, No signs of GI bleeding now. EGD and colonoscopy were done which showed severe erythematous gastritis as well as findings consistent with ischemic colitis Continue Protonix drip. Surgery recommending nonoperative management. 4. Ischemic colitis Off antibiotics, Non operative management by Surgical team. 5. End Stage COPD with Acute hypoxic respiratory failure secondary to COPD exacerbation, Continue Bronchodilator, Mucolytic incentive spirometry, on BiPAP at this time, Oxygen as needed. Doctor Madelyn following, not improving condition, worsening respiratory status today. 6. Anxiety disorder, Benzodiazepines, 7. Peripheral neuropathy Continue gabapentin 8. Dyslipidemia Continue statin 9. Obesity strongly recommended diet and exercise as outpatient. 10. Hypokalemia replaced and following. Poor short term prognosis will get Palliative care consult. Protonix for GI prophylaxis, no pharmacotherapy for DVT prophylaxis as the patient had a GI bleed. Continue PT patient was encouraged to participate in the physical therapy. Code Status: Full code. Discussed Condition With: Patient and nurse. Discharge Planning: Not yet clear for discharge.
[2018-06-12] MEDS ORDERED: Potassium Chlor 20 mEq Premix 20 MEQ/100 ML PIGGYBACK IV.SIG SCH (13:00)
--- NOTE | 2018-06-12 17:05 | P.PNNP ---
Subjective Interval history: Patient is short of breath on BiPAP Physical Exam Vital signs: Vital Signs 06/11/18 18:00 06/11/18 18:08 06/11/18 18:30 Temperature Pulse Rate 83 83 86 Respiratory Rate 20 21 23 Blood Pressure 127/60 118/56 L Pulse Oximetry 100 100 100 06/11/18 19:00 06/11/18 19:30 06/11/18 20:00 Temperature 100.3 F H Pulse Rate 84 85 84 Respiratory Rate 22 23 22 Blood Pressure 122/59 L 114/57 L 121/56 L Pulse Oximetry 100 93 L 94 L 06/11/18 20:30 06/11/18 21:00 06/11/18 21:13 Temperature Pulse Rate 84 83 Respiratory Rate 19 19 Blood Pressure 119/56 L 113/56 L Pulse Oximetry 92 L 91 L 97 06/11/18 21:30 06/11/18 21:40 06/11/18 22:00 Temperature Pulse Rate 93 H 93 H 84 Respiratory Rate 23 22 22 Blood Pressure 126/58 L 124/56 L Pulse Oximetry 91 L 94 L 06/11/18 22:05 06/11/18 22:30 06/11/18 23:00 Temperature Pulse Rate 85 81 81 Respiratory Rate 22 18 18 Blood Pressure 120/58 L 121/59 L Pulse Oximetry 92 L 92 L 06/11/18 23:30 06/12/18 00:00 06/12/18 00:30 Temperature 101 F H Pulse Rate 94 H 80 86 Respiratory Rate 18 19 20 Blood Pressure 128/59 L 138/58 L 144/61 H Pulse Oximetry 87 L 94 L 90 L 06/12/18 00:57 06/12/18 01:00 06/12/18 01:30 Temperature Pulse Rate 79 81 80 Respiratory Rate 18 19 18 Blood Pressure 124/57 L 127/58 L Pulse Oximetry 94 L 95 06/12/18 02:00 06/12/18 02:30 06/12/18 03:00 Temperature Pulse Rate 79 82 78 Respiratory Rate 18 18 18 Blood Pressure 119/55 L 114/57 L 115/57 L Pulse Oximetry 93 L 92 L 92 L 06/12/18 03:30 06/12/18 04:00 06/12/18 04:30 Temperature 98.7 F Pulse Rate 77 76 79 Respiratory Rate 18 18 18 Blood Pressure 115/55 L 112/55 L 130/58 L Pulse Oximetry 93 L 93 L 93 L 06/12/18 05:00 06/12/18 05:15 06/12/18 05:30 Temperature Pulse Rate 79 79 78 Respiratory Rate 19 22 20 Blood Pressure 111/55 L 123/58 L Pulse Oximetry 95 06/12/18 05:53 06/12/18 06:00 06/12/18 07:00 Temperature Pulse Rate 78 74 74 Respiratory Rate 18 16 Blood Pressure 138/63 Pulse Oximetry 96 06/12/18 07:44 06/12/18 08:53 06/12/18 12:01 Temperature Pulse Rate 87 Respiratory Rate 25 H 20 Blood Pressure Pulse Oximetry 93 L 06/12/18 15:29 06/12/18 15:38 Temperature Pulse Rate 97 H Respiratory Rate 21 Blood Pressure Pulse Oximetry 95 Intake & Output 06/11/18 06/12/18 06/12/18 18:59 06:59 18:59 Intake Total 460 / 460 340 / 340 Output Total 300 / 300 400 / 400 Balance 160 / 160 -60 / -60 Weight 94.4 kg Intake: IV 100 / 100 Flexbumin 25% Inj 100 ML @ 60 100 / 100 mls/hr IV.SIG Q12H [facility] Rx#: [id number] Oral 360 / 360 240 / 240 Other 100 / 100 Output: Urine 300 / 300 Urine Amount (Catheter) 400 / 400 Indwelling Urethral Catheter 400 / 400 Other: Date of Last Bowel Movement 06/09/18 06/12/18 06/12/18 # Bowel Movements 1 1 Narrative: Alert and in Respiratory distress. GENERAL: Elderly W/F pale. SKIN: Cool and dry. HEAD: Atraumatic. Normocephalic. EYES: Pupils equal and round. No scleral icterus. No injection or drainage. ENT: No nasal bleeding or discharge. Mucous membranes pink and moist. NECK: Trachea midline. No JVD. CARDIOVASCULAR: Regular rate and rhythm. RESPIRATORY: Has accessory muscle use. Few basal crackles to auscultation. Extensive wheezing ++. Breath sounds equal bilaterally. GASTROINTESTINAL: Abdomen soft, non-tender, nondistended. Hepatic and splenic margins not palpable. MUSCULOSKELETAL: Extremities without clubbing, cyanosis, or edema. No obvious deformities. NEUROLOGICAL: Awake and alert. No obvious cranial nerve deficits. Motor grossly within normal limits. Normal speech. PSYCHIATRIC: Appropriate mood and affect. - Urinary Catheter Management Indwelling Urethral Catheter Cath placed during this visit: yes Reason for continuing: Hourly intake/output Insertion date: 06/08/18 Insertion time: 16:15 Assessment and Plan - Assessment (1) STEPHIE (acute kidney injury) Code(s): N17.9 - Acute kidney failure, unspecified Status: Acute (2) GI bleed requiring more than 4 units of blood in 24 hours, ICU, or surgery Code(s): K92.2 - Gastrointestinal hemorrhage, unspecified Status: Acute (3) Anemia Code(s): D64.9 - Anemia, unspecified Status: Acute (4) Shock Code(s): R57.9 - Shock, unspecified Status: Acute (5) Sepsis Code(s): A41.9 - Sepsis, unspecified organism Status: Acute - Plan Patient is getting IV fluid however the urine output is not recorded correctly She is getting Diflucan for yeast infection Acute renal failure appears to be due to hypoperfusion of the kidney as a result of sepsis Creatinine is higher 2.7 urine output has been slowed down I will give Diamox 250 mg IV q. 12 hourly continue to replace potassium Follow BMP
[2018-06-12] MEDS: acetaZOLAMIDE Inj 250 MG in Sodium Chlor 0.9% Inj 50 ML IV.SIG SCH ×2 (18:30→20:38)
[2018-06-12] MEDS ORDERED: MethylPREDNISolone Sod Succinate Inj 40 MG/ML Vial IV.PUSH ONE (18:30)
[2018-06-12] MEDS: MethylPREDNISolone Sod Succinate Inj 40 MG/ML Vial IV.PUSH SCH (20:39)
[2018-06-12] MEDS: Polyvinyl Alcohol/Povidone PF Opth Drops 0.4 ML Dropperette EACH EYE SCH ×2 (20:41)
[2018-06-12] MEDS: Potassium Chlor 20 mEq Premix 20 MEQ/100 ML PIGGYBACK IV.SIG SCH (20:41)
[2018-06-12] MEDS: Insulin Detemir Inj 1,000 UNIT/10 ML Vial SQ SCH (21:00)
[2018-06-13] MEDS: Potassium Chlor 20 mEq Premix 20 MEQ/100 ML PIGGYBACK IV.SIG SCH (00:02)
[2018-06-13] MEDS: Oral Hygiene Kit OROPHARYNG SCH ×2 (00:02→05:01)
[2018-06-13] MEDS: Insulin NovoLOG Aspart Correctional Sugar Inj SQ SCH ×6 (00:02→20:29)
[2018-06-13] MEDS: Morphine Inj 4 MG/ML Vial IV.PUSH PRN ×5 (00:50→21:20)
[2018-06-13] MEDS: Albumin Human 25% Inj 100 ML IV.SIG SCH ×2 (05:00→15:36)
[2018-06-13 06:22] LABS: Calcium 8.7 mg/dL (8.5-10.1); Carbon Dioxide 24.8 meq/L (21.0-32.0); Potassium 4.1 meq/L (3.5-5.1)
--- NOTE | 2018-06-13 07:37 | P.PN ---
Subjective Interval history: Pt seen and examined for f/u GI bleed, STEPHIE, COPD with acute on chronic respiratory failure. D/W RN at the bedside, no new issues. She complains of diffuse abdominal pain, pain in her bilateral legs, and shortness of breath. She states her abdominal pain is the same as it was prior to coming to the hospital. She has two soft brown, nonbloody BMs overnight. She denies chest pain. She complains of wheezing. She complains of chronic pain in her legs and cries out when I gently squeeze her calves. Physical Exam Vital signs: Vital Signs 06/12/18 07:44 06/12/18 08:00 06/12/18 08:53 Temperature 98.1 F Pulse Rate 74 87 Respiratory Rate 17 25 H Blood Pressure 150/63 H Pulse Oximetry 93 L 92 L 06/12/18 09:00 06/12/18 09:30 06/12/18 10:00 Temperature Pulse Rate 100 H 99 H 87 Respiratory Rate Blood Pressure 166/70 H 161/73 H 151/65 H Pulse Oximetry 90 L 96 90 L 06/12/18 10:30 06/12/18 10:47 06/12/18 11:00 Temperature Pulse Rate 89 90 91 H Respiratory Rate 23 22 23 Blood Pressure 157/105 H 154/67 H 161/89 H Pulse Oximetry 86 L 82 L 79 L 06/12/18 11:31 06/12/18 12:00 06/12/18 12:01 Temperature 98.4 F Pulse Rate 89 82 82 Respiratory Rate 24 18 17 Blood Pressure 204/81 H 162/65 H 162/65 H Pulse Oximetry 94 L 99 100 06/12/18 12:30 06/12/18 13:00 06/12/18 13:30 Temperature Pulse Rate 84 83 83 Respiratory Rate 18 18 17 Blood Pressure 158/65 H 152/66 H 163/69 H Pulse Oximetry 97 98 98 06/12/18 14:00 06/12/18 14:30 06/12/18 15:00 Temperature Pulse Rate 83 83 83 Respiratory Rate 16 16 15 Blood Pressure 157/67 H 162/67 H 152/65 H Pulse Oximetry 96 97 97 06/12/18 15:29 06/12/18 15:38 06/12/18 16:00 Temperature 99.1 F Pulse Rate 97 H 93 H Respiratory Rate 21 27 H Blood Pressure 138/78 Pulse Oximetry 95 96 06/12/18 17:00 06/12/18 18:00 06/12/18 19:00 Temperature Pulse Rate 82 85 81 Respiratory Rate 33 H 20 17 Blood Pressure 132/62 133/60 148/63 H Pulse Oximetry 95 98 06/12/18 19:24 06/12/18 20:00 06/12/18 21:00 Temperature 101.7 F H Pulse Rate 90 80 80 Respiratory Rate 20 18 18 Blood Pressure 140/63 Pulse Oximetry 94 L 100 97 06/12/18 21:01 06/12/18 22:00 06/12/18 23:00 Temperature Pulse Rate 80 75 79 Respiratory Rate 18 18 17 Blood Pressure 171/74 H 139/64 142/65 H Pulse Oximetry 99 98 98 06/13/18 00:00 06/13/18 00:06 06/13/18 01:00 Temperature 99.1 F Pulse Rate 76 75 Respiratory Rate 20 28 H Blood Pressure 141/70 H 129/60 Pulse Oximetry 97 98 98 06/13/18 01:49 06/13/18 02:00 06/13/18 04:15 Temperature Pulse Rate 69 Respiratory Rate 19 Blood Pressure Pulse Oximetry 98 06/13/18 04:35 06/13/18 05:02 Temperature Pulse Rate 73 Respiratory Rate 15 Blood Pressure Pulse Oximetry 98 Intake & Output 06/12/18 06/13/18 06/13/18 18:59 06:59 18:59 Intake Total 675 / 675 Balance 675 / 675 Intake: IV 675 / 675 Ofirmev Inj 1,000 mg In 100 ml 100 / 100 @ 400 mls/hr IV.SIG Q6H PRN Rx# :[id number] Flexbumin 25% Inj 100 ML @ 60 100 / 100 mls/hr IV.SIG Q12H ANNE Rx#: [id number] Maxipime Inj 1,000 MG In NS Inj 200 / 200 100 ML @ 200 mls/hr IV.SIG Q12H ANNE Rx#:[id number] KCl 20 mEq Premix Inj 20 meq In 200 / 200 100 ml @ 50 mls/hr IV.SIG Q2H ANNE Rx#:[id number] Diamox Inj 250 MG In NS Inj 50 75 / 75 ML @ 100 mls/hr IV.SIG Q12HR ANNE Rx#:[id number] Other: Date of Last Bowel Movement 06/12/18 06/13/18 Narrative: GENERAL: Chronically ill-appearing elderly female sitting up in bed with mild shortness of breath otherwise in NAD. SKIN: Warm and dry. Pale. Ecchymoses over UE. HEENT: AT/NC. Pupils equal and round. Pale conjunctiva. MMM. NECK: Supple no tender LAD or JVD. HEART: RRR no m/r/g. LUNGS: Decreased breath sounds bilaterally with expiratory wheezing. Abdominal breathing. ABDOMEN: +BS, soft, nondistended. Generalized diffuse TTP. EXTREMITIES: No LE edema. Diminished pedal pulses. B/L calves supple but very tender to touch and there is some mild erythema in both posterior calves. NEURO: Awake and alert. - Urinary Catheter Management Indwelling Urethral Catheter Cath placed during this visit: yes Reason for continuing: Hourly intake/output Insertion date: 06/08/18 Insertion time: 16:15 Results - Labs CBC & Chem 7: 06/12/18 11:49 06/13/18 05:41 Laboratory Results - last 24 hr 06/12/18 06/12/18 06/12/18 04:33 09:46 11:49 WBC 9.2 RBC 3.10 L Hgb 9.2 L Hct 27.5 L MCV 88.7 MCH 29.8 MCHC 33.6 RDW 15.8 Plt Count 176 MPV 7.9 Puncture Site Patient Temperature O2 Saturation ABG pH ABG pCO2 ABG pO2 ABG HCO3 ABG O2 Content ABG Base Excess ABG Methemoglobin Spenser Test Hemoglobin Carboxyhemoglobin O2 Delivery Device Vent Setting Inspired O2 Critical Value Sodium 142 Potassium 3.1 L Chloride 108 H Carbon Dioxide 29.7 Anion Gap 4 L BUN 12 Creatinine 2.76 H Estimated GFR 17 L POC Glucose 101 Random Glucose 81 Calcium 8.0 L 06/12/18 06/12/18 06/12/18 12:21 12:34 17:53 WBC RBC Hgb Hct MCV MCH MCHC RDW Plt Count MPV Puncture Site Left radial Patient Temperature 98.6 O2 Saturation 96 ABG pH 7.40 ABG pCO2 46 H ABG pO2 106 ABG HCO3 28 H ABG O2 Content 11.3 L ABG Base Excess 3.6 H ABG Methemoglobin 1.6 Spenser Test Y Hemoglobin 8.3 L Carboxyhemoglobin 1.2 O2 Delivery Device Bipap Vent Setting 10 ipap/ 5 epap Inspired O2 50 Critical Value No Sodium Potassium Chloride Carbon Dioxide Anion Gap BUN Creatinine Estimated GFR POC Glucose 95 95 Random Glucose Calcium 06/12/18 06/12/18 06/13/18 20:43 23:57 04:59 WBC RBC Hgb Hct MCV MCH MCHC RDW Plt Count MPV Puncture Site Patient Temperature O2 Saturation ABG pH ABG pCO2 ABG pO2 ABG HCO3 ABG O2 Content ABG Base Excess ABG Methemoglobin Spenser Test Hemoglobin Carboxyhemoglobin O2 Delivery Device Vent Setting Inspired O2 Critical Value Sodium Potassium Chloride Carbon Dioxide Anion Gap BUN Creatinine Estimated GFR POC Glucose 96 102 121 H Random Glucose Calcium 06/13/18 05:41 WBC RBC Hgb Hct MCV MCH MCHC RDW Plt Count MPV Puncture Site Patient Temperature O2 Saturation ABG pH ABG pCO2 ABG pO2 ABG HCO3 ABG O2 Content ABG Base Excess ABG Methemoglobin Spenser Test Hemoglobin Carboxyhemoglobin O2 Delivery Device Vent Setting Inspired O2 Critical Value Sodium 143 Potassium 4.1 D Chloride 107 Carbon Dioxide 24.8 Anion Gap 11 BUN 19 H Creatinine 2.73 H Estimated GFR 17 L POC Glucose Random Glucose 124 H Calcium 8.7 - Imaging Impressions Chest X-Ray 06/12/18 00:00 CONCLUSION: Unchanged bibasal infiltrates and small effusions. - Procedures central line placement. Assessment and Plan - Assessment (1) STEPHIE (acute kidney injury) Code(s): N17.9 - Acute kidney failure, unspecified Status: Acute (2) GI hemorrhage Code(s): K92.2 - Gastrointestinal hemorrhage, unspecified Status: Resolved (3) Anemia Code(s): D64.9 - Anemia, unspecified Status: Acute (4) Respiratory failure Code(s): J96.90 - Respiratory failure, unspecified, unspecified whether with hypoxia or hypercapnia Status: Acute - Plan 68 year old female with history of COPD, HTN, HLD, and PE anticoagulated on Xarelto admitted from SNF on 05/20 for hemorrhagic shock secondary to GI bleeding. 06/13: Still with some SOB but distress seems to be improved compared to yesterday. Schedule DuoNebs. Increase gabapentin due to chronic, diffuse pain. Check Doppler U/S of B/L LE given significant calf tenderness. Will change Protonix to PO and continue to monitor. 1. STEPHIE - Creatinine and GFR essentially same today: 2.73 from 2.76 - UOP appears to be decreasing per EMR - Likely secondary to hypoperfusion from sepsis and possible medication related - Renal U/S normal - Nephrology following, recommending Diamox 250 mg IV BID - Albumin infusion per nephro - Renally dose meds and avoid nephrotoxic agents - Continue to closely monitor renal function 2. Acute on chronic respiratory failure, COPD - s/p intubation 05/20-05/21 - Acutely worsened on 06/12. ABG with normal pH, mildly elevated PCO2 and bicarb - Pulm following, added Solumedrol 40 mg IV BID and Cefepime - CXR 06/12 showed unchanged bibasilar infiltrates and small effusions - Change DuoNeb to Q4H SCHEDULED - Albuterol nebs PRN - BiPAP PRN - Titrate supplemental O2 - Continue Symbicort 3. GI bleed, resolved - H&H stable - Hemodynamically stable - Continue to hold anticoagulation - Change Protonix to PO - GI consulted earlier in course, s/p EGD/colonoscopy showing severe erythematous gastritis in the antrum and body and severe diverticulosis throughout the entire examined colon as well as large sized circumferential colitis in the sigmoid colon c/w ischemic colitis. Recommended repeat colonoscopy 1-2 months 4. Ischemic colitis, abdominal pain - Circumferential sigmoid colitis c/w ischemic colitis seen on colonoscopy - CTA abdomen demonstrated atherosclerosis with no major occlusions - General surgery consulted earlier in course, recommended medical management and resuscitation as needed for GI hemorrhage - OAC on hold secondary to hemorrhagic shock - Morphine PRN 5. Lisbeth UTI - Continue renally dosed Diflucan - Nystatin powder for inguinal mycosis 6. Peripheral neuropathy, chronic pain - Increase gabapentin to 200 mg Q8H - Continue Trazodone and tramadol PRN 7. HTN - Stable, continue amlodipine and Coreg 8. HLD - Continue statin 9. 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 Patient still with some shortness of breath requiring BiPAP at times. (3) Anemia Qualifiers: Other causes of anemia: acute posthemorrhagic (4) Respiratory failure Qualifiers: Chronicity: acute on chronic
[2018-06-13] MEDS: Gabapentin 100 MG Capsule PO SCH ×3 (08:51→17:25)
[2018-06-13] MEDS: traZODone 50 MG Tablet PO SCH ×2 (08:51→20:32)
[2018-06-13] MEDS: Carvedilol 12.5 MG Tablet PO SCH ×2 (08:51→20:31)
[2018-06-13] MEDS: Budesonide-Formoterol 160/4.5 MCG 6 GM Inhaler INH SCH ×2 (08:51→20:33)
[2018-06-13] MEDS: Mupirocin 2% Nasal Oint Topical Syringe EACH NARE SCH ×2 (08:52→20:29)
[2018-06-13] MEDS: Polyvinyl Alcohol/Povidone PF Opth Drops 0.4 ML Dropperette EACH EYE SCH ×2 (08:52→20:33)
[2018-06-13] MEDS: MethylPREDNISolone Sod Succinate Inj 40 MG/ML Vial IV.PUSH SCH ×2 (08:52→20:32)
[2018-06-13] MEDS: Lactic Acid (Ammonium Lactate) 12% Lotion 225 GM Bottle TOPICAL SCH (08:53)
[2018-06-13] MEDS: Pantoprazole Inj 40 MG Vial IV.PUSH SCH (08:53)
[2018-06-13] MEDS: Senna/Docusate Sodium 8.6/50 MG Tablet PO SCH ×2 (08:54→20:31)
--- NOTE | 2018-06-13 09:45 | P.PNNP ---
Subjective Interval history: Patient is alert, has mild SOB and cough, with nasal cannula. Physical Exam Vital signs: Vital Signs 06/12/18 10:00 06/12/18 10:30 06/12/18 10:47 Temperature Pulse Rate 87 89 90 Respiratory Rate 23 22 Blood Pressure 151/65 H 157/105 H 154/67 H Pulse Oximetry 90 L 86 L 82 L 06/12/18 11:00 06/12/18 11:31 06/12/18 12:00 Temperature 98.4 F Pulse Rate 91 H 89 82 Respiratory Rate 23 24 18 Blood Pressure 161/89 H 204/81 H 162/65 H Pulse Oximetry 79 L 94 L 99 06/12/18 12:01 06/12/18 12:30 06/12/18 13:00 Temperature Pulse Rate 82 84 83 Respiratory Rate 17 18 18 Blood Pressure 162/65 H 158/65 H 152/66 H Pulse Oximetry 100 97 98 06/12/18 13:30 06/12/18 14:00 06/12/18 14:30 Temperature Pulse Rate 83 83 83 Respiratory Rate 17 16 16 Blood Pressure 163/69 H 157/67 H 162/67 H Pulse Oximetry 98 96 97 06/12/18 15:00 06/12/18 15:29 06/12/18 15:38 Temperature Pulse Rate 83 97 H Respiratory Rate 15 21 Blood Pressure 152/65 H Pulse Oximetry 97 95 06/12/18 16:00 06/12/18 17:00 06/12/18 18:00 Temperature 99.1 F Pulse Rate 93 H 82 85 Respiratory Rate 27 H 33 H 20 Blood Pressure 138/78 132/62 133/60 Pulse Oximetry 96 95 06/12/18 19:00 06/12/18 19:24 06/12/18 20:00 Temperature 101.7 F H Pulse Rate 81 90 80 Respiratory Rate 17 20 18 Blood Pressure 148/63 H 140/63 Pulse Oximetry 98 94 L 100 06/12/18 21:00 06/12/18 21:01 06/12/18 22:00 Temperature Pulse Rate 80 80 75 Respiratory Rate 18 18 18 Blood Pressure 171/74 H 139/64 Pulse Oximetry 97 99 98 06/12/18 23:00 06/13/18 00:00 06/13/18 00:06 Temperature 99.1 F Pulse Rate 79 76 Respiratory Rate 17 20 Blood Pressure 142/65 H 141/70 H Pulse Oximetry 98 97 98 06/13/18 01:00 06/13/18 01:49 06/13/18 02:00 Temperature Pulse Rate 75 69 Respiratory Rate 28 H 19 16 Blood Pressure 129/60 115/58 L Pulse Oximetry 98 98 06/13/18 03:00 06/13/18 04:00 06/13/18 04:15 Temperature 97.8 F Pulse Rate 64 68 Respiratory Rate 13 15 Blood Pressure 107/52 L 147/67 H Pulse Oximetry 98 99 98 06/13/18 04:35 06/13/18 05:00 06/13/18 05:02 Temperature Pulse Rate 73 65 Respiratory Rate 15 15 Blood Pressure 134/61 Pulse Oximetry 99 98 06/13/18 06:00 06/13/18 07:00 06/13/18 07:40 Temperature Pulse Rate 65 64 Respiratory Rate 24 15 16 Blood Pressure 127/60 120/56 L Pulse Oximetry 99 97 06/13/18 07:49 06/13/18 08:00 Temperature 98 F Pulse Rate 66 Respiratory Rate Blood Pressure Pulse Oximetry 96 94 L Intake & Output 06/12/18 06/13/18 06/13/18 18:59 06:59 18:59 Intake Total 775 / 775 Output Total 425 / 425 Balance 350 / 350 Weight 95.3 kg Intake: IV 675 / 675 Ofirmev Inj 1,000 mg In 100 ml 100 / 100 @ 400 mls/hr IV.SIG Q6H PRN Rx# :[id number] Flexbumin 25% Inj 100 ML @ 60 100 / 100 mls/hr IV.SIG Q12H ANNE Rx#: [id number] Maxipime Inj 1,000 MG In NS Inj 200 / 200 100 ML @ 200 mls/hr IV.SIG Q12H ANNE Rx#:[id number] KCl 20 mEq Premix Inj 20 meq In 200 / 200 100 ml @ 50 mls/hr IV.SIG Q2H ANNE Rx#:[id number] Diamox Inj 250 MG In NS Inj 50 75 / 75 ML @ 100 mls/hr IV.SIG Q12HR ANNE Rx#:[id number] Oral 100 / 100 Output: Urine Amount (Catheter) 425 / 425 Indwelling Urethral Catheter 425 / 425 Other: Date of Last Bowel Movement 06/12/18 06/13/18 06/13/18 # Bowel Movements 2 Narrative: GENERAL: Chronically ill-appearing elderly female sitting up in bed with mild shortness of breath otherwise in NAD. SKIN: Warm and dry. Pale. Ecchymoses over UE. HEENT: AT/NC. Pupils equal and round. Pale conjunctiva. MMM. NECK: Supple no tender LAD or JVD. HEART: RRR no m/r/g. LUNGS: Decreased breath sounds bilaterally with expiratory wheezing. Abdominal breathing. ABDOMEN: +BS, soft, nondistended. Generalized diffuse TTP. EXTREMITIES: No LE edema. Diminished pedal pulses. B/L calves supple but very tender to touch and there is some mild erythema in both posterior calves. NEURO: Awake and alert. - Urinary Catheter Management Indwelling Urethral Catheter Cath placed during this visit: yes Reason for continuing: Hourly intake/output Insertion date: 06/08/18 Insertion time: 16:15 Assessment and Plan - Assessment (1) STEPHIE (acute kidney injury) Code(s): N17.9 - Acute kidney failure, unspecified Status: Acute (2) GI bleed requiring more than 4 units of blood in 24 hours, ICU, or surgery Code(s): K92.2 - Gastrointestinal hemorrhage, unspecified Status: Acute (3) Anemia Code(s): D64.9 - Anemia, unspecified Status: Acute Qualifiers: Other causes of anemia: acute posthemorrhagic (4) Shock Code(s): R57.9 - Shock, unspecified Status: Acute (5) Sepsis Code(s): A41.9 - Sepsis, unspecified organism Status: Acute - Plan Patient is getting IV fluid however the urine output is not recorded correctly She is getting Diflucan for yeast infection Acute renal failure appears to be due to hypoperfusion of the kidney as a result of sepsis Creatinine is now stable at 2.7. On Diamox 250 mg IV q. 12 hourly continue to replace potassium. K is normal, Follow BMP and the urine out put.
[2018-06-13] MEDS: acetaZOLAMIDE Inj 250 MG in Sodium Chlor 0.9% Inj 50 ML IV.SIG SCH ×2 (10:33→20:40)
--- NOTE | 2018-06-13 14:06 | US ---
EXAM DATE: 06/13/2018 12:00 AM EDT AGE/SEX: 68 years / Female INDICATIONS: Bilateral lower extremity pain. CLINICAL DATA: This is the patient's subsequent encounter. Patient reports that signs and symptoms h ave been present for 2 months and indicates a pain score of 6/10. MEDICAL/SURGICAL HISTORY: . Hypertension. Pulmonary embolism 2017. Anxiety. Edema. Chronic o bstructive pulmonary disease. Anterior urethral stricture. . Cholecystectomy. section. COMPARISON: [facility] [place] VENOUS DOPPLER LEG BI, 04/05/2018. . TECHNIQUE: Venous ultrasound of both lower extremities was performed from the inguinal ligament to t he proximal calf. Real-time, color Doppler and spectral tracing, compression and augmentation techni ques were used. FINDINGS: Right Leg: Normal compression of the deep venous system from the inguinal region to the proximal teri f. No echogenic clot is seen. Normal response of the venous system to augmentation and respiration. Left Leg: Normal compression of the deep venous system from the inguinal region to the proximal calf . No echogenic clot is seen. Normal response of the venous system to augmentation and respiration. Other: None. CONCLUSION: 1. The study is negative for bilateral lower extremity deep venous thrombosis. Electronically signed by: Sanket Regalado MD 06/13/2018 2:05 PM EDT
--- NOTE | 2018-06-13 15:12 | P.PN ---
Subjective Interval history: Alert and breathing better today. CR 2.7. On O2 at 5 L. Sats 96. No chest pains, or active GI bleed. Physical Exam Vital signs: Vital Signs 06/12/18 15:29 06/12/18 15:38 06/12/18 16:00 Temperature 99.1 F Pulse Rate 97 H 93 H Respiratory Rate 21 27 H Blood Pressure 138/78 Pulse Oximetry 95 96 06/12/18 17:00 06/12/18 18:00 06/12/18 19:00 Temperature Pulse Rate 82 85 81 Respiratory Rate 33 H 20 17 Blood Pressure 132/62 133/60 148/63 H Pulse Oximetry 95 98 06/12/18 19:24 06/12/18 20:00 06/12/18 21:00 Temperature 101.7 F H Pulse Rate 90 80 80 Respiratory Rate 20 18 18 Blood Pressure 140/63 Pulse Oximetry 94 L 100 97 06/12/18 21:01 06/12/18 22:00 06/12/18 23:00 Temperature Pulse Rate 80 75 79 Respiratory Rate 18 18 17 Blood Pressure 171/74 H 139/64 142/65 H Pulse Oximetry 99 98 98 06/13/18 00:00 06/13/18 00:06 06/13/18 01:00 Temperature 99.1 F Pulse Rate 76 75 Respiratory Rate 20 28 H Blood Pressure 141/70 H 129/60 Pulse Oximetry 97 98 98 06/13/18 01:49 06/13/18 02:00 06/13/18 03:00 Temperature Pulse Rate 69 64 Respiratory Rate 19 16 13 Blood Pressure 115/58 L 107/52 L Pulse Oximetry 98 98 06/13/18 04:00 06/13/18 04:15 06/13/18 04:35 Temperature 97.8 F Pulse Rate 68 73 Respiratory Rate 15 15 Blood Pressure 147/67 H Pulse Oximetry 99 98 06/13/18 05:00 06/13/18 05:02 06/13/18 06:00 Temperature Pulse Rate 65 65 Respiratory Rate 15 24 Blood Pressure 134/61 127/60 Pulse Oximetry 99 98 99 06/13/18 07:00 06/13/18 07:40 06/13/18 07:49 Temperature Pulse Rate 64 Respiratory Rate 15 16 Blood Pressure 120/56 L Pulse Oximetry 97 96 06/13/18 08:00 06/13/18 10:00 06/13/18 10:54 Temperature 98 F Pulse Rate 66 66 Respiratory Rate 16 Blood Pressure Pulse Oximetry 94 L 06/13/18 11:34 06/13/18 12:00 06/13/18 14:00 Temperature 98 F Pulse Rate 66 73 75 Respiratory Rate 26 H Blood Pressure 128/78 Pulse Oximetry 94 L 06/13/18 15:02 Temperature Pulse Rate 69 Respiratory Rate 21 Blood Pressure Pulse Oximetry Intake & Output 06/12/18 06/13/18 06/13/18 18:59 06:59 18:59 Intake Total 775 / 775 Output Total 425 / 425 Balance 350 / 350 Weight 95.3 kg Intake: IV 675 / 675 Ofirmev Inj 1,000 mg In 100 ml 100 / 100 @ 400 mls/hr IV.SIG Q6H PRN Rx# :[id number] Flexbumin 25% Inj 100 ML @ 60 100 / 100 mls/hr IV.SIG Q12H ANNE Rx#: [id number] Maxipime Inj 1,000 MG In NS Inj 200 / 200 100 ML @ 200 mls/hr IV.SIG Q12H ANNE Rx#:[id number] KCl 20 mEq Premix Inj 20 meq In 200 / 200 100 ml @ 50 mls/hr IV.SIG Q2H ANNE Rx#:[id number] Diamox Inj 250 MG In NS Inj 50 75 / 75 ML @ 100 mls/hr IV.SIG Q12HR ANNE Rx#:[id number] Oral 100 / 100 Output: Urine Amount (Catheter) 425 / 425 Indwelling Urethral Catheter 425 / 425 Other: Date of Last Bowel Movement 06/12/18 06/13/18 06/13/18 # Bowel Movements 2 Narrative: GENERAL: Chronically ill-appearing elderly female in NAD. SKIN: Warm and dry. Pale. Ecchymoses over UE. HEENT: Pupils equal and round. Pale conjunctiva. Throat clear. NECK: Supple no tender LAD or JVD. HEART: RRR no m/r/g. LUNGS: Decreased breath sounds bilaterally with Bilat expiratory wheezing. Abdominal breathing. ABDOMEN: +BS, soft, nondistended. EXTREMITIES: No LE edema. Diminished pedal pulses. NEURO: Awake and alert.No gross deficits. - Urinary Catheter Management Indwelling Urethral Catheter Cath placed during this visit: yes Reason for continuing: Hourly intake/output Insertion date: 06/08/18 Insertion time: 16:15 Results - Labs CBC & Chem 7: 06/12/18 11:49 06/13/18 10:02 Laboratory Results - last 24 hr 06/12/18 06/12/18 06/12/18 17:53 20:43 23:57 Sodium Potassium Chloride Carbon Dioxide Anion Gap BUN Creatinine Estimated GFR POC Glucose 95 96 102 Random Glucose Calcium 06/13/18 06/13/18 06/13/18 04:59 05:41 07:56 Sodium 143 Potassium 4.1 D Chloride 107 Carbon Dioxide 24.8 Anion Gap 11 BUN 19 H Creatinine 2.73 H Estimated GFR 17 L POC Glucose 121 H 152 H Random Glucose 124 H Calcium 8.7 06/13/18 06/13/18 10:02 12:07 Sodium Potassium 3.8 Chloride Carbon Dioxide Anion Gap BUN Creatinine Estimated GFR POC Glucose 192 H Random Glucose Calcium - Imaging Impressions Venous Doppler Study 06/13/18 00:00 CONCLUSION: 1. The study is negative for bilateral lower extremity deep venous thrombosis. - Procedures central line placement. Assessment and Plan - Assessment (1) GI bleed requiring more than 4 units of blood in 24 hours, ICU, or surgery Code(s): K92.2 - Gastrointestinal hemorrhage, unspecified Status: Acute (2) Anemia Code(s): D64.9 - Anemia, unspecified Status: Acute (3) Shock Code(s): R57.9 - Shock, unspecified Status: Acute (4) COPD (chronic obstructive pulmonary disease) Code(s): J44.9 - Chronic obstructive pulmonary disease, unspecified Status: Chronic (5) Major depression, recurrent Code(s): F33.9 - Major depressive disorder, recurrent, unspecified Status: Acute (6) Sepsis Code(s): A41.9 - Sepsis, unspecified organism Status: Acute (7) Atelectasis Code(s): J98.11 - Atelectasis Status: Acute (8) Respiratory failure Code(s): J96.90 - Respiratory failure, unspecified, unspecified whether with hypoxia or hypercapnia Status: Acute (9) Aspiration pneumonia Code(s): J69.0 - Pneumonitis due to inhalation of food and vomit Status: Acute (10) Mixed personality disorder Code(s): F60.89 - Other specific personality disorders Status: Suspected - Plan 1. Place on 5 L O2 with sats >90 2. Solumedrol 20 Mg BID IV 3. Duonebs qid and Q4H PRN 4. Cont antibiotics 5. PT to help activity. 6. CBC,BMP in am (2) Anemia Qualifiers: Other causes of anemia: acute posthemorrhagic (4) COPD (chronic obstructive pulmonary disease) Qualifiers: COPD type: unspecified COPD Qualified Code(s): J44.9 - Chronic obstructive pulmonary disease, unspecified (8) Respiratory failure Qualifiers: Chronicity: acute on chronic
[2018-06-13] MEDS: Insulin Detemir Inj 1,000 UNIT/10 ML Vial SQ SCH (20:32)
[2018-06-14] MEDS: Insulin NovoLOG Aspart Correctional Sugar Inj SQ SCH ×6 (00:57→20:16)
[2018-06-14] MEDS: Gabapentin 100 MG Capsule PO SCH ×3 (01:01→17:07)
[2018-06-14] MEDS: Albumin Human 25% Inj 100 ML IV.SIG SCH ×2 (03:49→16:44)
[2018-06-14 04:05] LABS: Hematocrit 23.7 % (35.0-46.0); Hemoglobin 7.8 gm/dL (11.6-15.3); Mean Corpuscular HGB Conc 32.9 % (32.0-36.0); Mean Corpuscular Hemoglobin 29.8 pg (27.0-34.0); Mean Corpuscular Volume 90.5 fL (80.0-100.0); Mean Platelet Volume 8.2 fL (7.0-11.0); Platelet Count 204 th/mm3 (150-450); Red Blood Count 2.61 mil/mm3 (4.00-5.30); Red Cell Distribution Width 15.9 % (11.6-17.2); White Blood Count 10.9 th/mm3 (4.0-11.0)
[2018-06-14 04:39] LABS: Calcium 8.4 mg/dL (8.5-10.1); Carbon Dioxide 27.8 meq/L (21.0-32.0); Potassium 3.7 meq/L (3.5-5.1)
[2018-06-14] MEDS: Carvedilol 12.5 MG Tablet PO SCH ×2 (08:42→20:14)
[2018-06-14] MEDS: Senna/Docusate Sodium 8.6/50 MG Tablet PO SCH ×2 (08:43→20:16)
[2018-06-14] MEDS: Mupirocin 2% Nasal Oint Topical Syringe EACH NARE SCH ×2 (08:43→20:13)
[2018-06-14] MEDS: Budesonide-Formoterol 160/4.5 MCG 6 GM Inhaler INH SCH ×2 (08:44→20:16)
[2018-06-14] MEDS: Lactic Acid (Ammonium Lactate) 12% Lotion 225 GM Bottle TOPICAL SCH (08:44)
[2018-06-14] MEDS: MethylPREDNISolone Sod Succinate Inj 40 MG/ML Vial IV.PUSH SCH ×2 (08:44→16:44)
[2018-06-14] MEDS: Polyvinyl Alcohol/Povidone PF Opth Drops 0.4 ML Dropperette EACH EYE SCH ×2 (08:44→20:12)
[2018-06-14] MEDS: acetaZOLAMIDE Inj 250 MG in Sodium Chlor 0.9% Inj 50 ML IV.SIG SCH ×2 (08:44→20:14)
[2018-06-14] MEDS: Morphine Inj 4 MG/ML Vial IV.PUSH PRN ×2 (09:19→12:57)
[2018-06-14] MEDS ORDERED: Acetaminophen 325 MG Tablet PO PRN (09:47)
[2018-06-14] MEDS ORDERED: Naloxone Inj 0.4 MG/ML Vial IV.PUSH PRN (09:47)
--- NOTE | 2018-06-14 09:51 | P.PNIM ---
Subjective Interval history: PATIENT STILL WHEEZING, COMPLAINS OF PAIN ALL OVER EVEN THOUGH JUST HAD 4MG IV MORPHINE FOLLOW UP GI bleed, acute kidney injury, COPD with acute on chronic respiratory failure, Has chronic pain in her legs positive wheezing We will add Mucinex Incentive spirometry Increase steroids Symbicort if she is not on Physical Exam Vital signs: Vital Signs 06/13/18 10:00 06/13/18 10:54 06/13/18 11:00 Temperature Pulse Rate 75 68 Respiratory Rate 22 16 15 Blood Pressure 129/60 127/60 Pulse Oximetry 94 L 93 L 06/13/18 11:34 06/13/18 12:00 06/13/18 12:01 Temperature 98 F Pulse Rate 66 67 67 Respiratory Rate 26 H 36 H 22 Blood Pressure 128/78 128/78 Pulse Oximetry 92 L 94 L 06/13/18 13:00 06/13/18 14:00 06/13/18 15:00 Temperature Pulse Rate 75 75 68 Respiratory Rate 36 H 27 H 23 Blood Pressure 122/72 123/57 L 119/57 L Pulse Oximetry 92 L 93 L 95 06/13/18 15:02 06/13/18 16:00 06/13/18 17:00 Temperature 98 F Pulse Rate 69 71 72 Respiratory Rate 21 26 H 16 Blood Pressure 113/54 L 115/56 L Pulse Oximetry 93 L 92 L 06/13/18 17:22 06/13/18 18:00 06/13/18 19:00 Temperature Pulse Rate 73 73 Respiratory Rate 16 20 18 Blood Pressure 123/59 L 126/67 Pulse Oximetry 97 100 06/13/18 19:57 06/13/18 19:58 06/13/18 20:00 Temperature 98.4 F Pulse Rate 75 77 Respiratory Rate 24 28 H Blood Pressure 128/59 L Pulse Oximetry 98 98 96 06/13/18 21:00 06/13/18 21:27 06/13/18 22:00 Temperature Pulse Rate 81 78 Respiratory Rate 24 24 Blood Pressure 125/59 L Pulse Oximetry 92 L 92 L 75 L 06/13/18 22:01 06/13/18 23:00 06/13/18 23:26 Temperature Pulse Rate 79 66 66 Respiratory Rate 28 H 25 H 22 Blood Pressure 101/52 L 136/60 Pulse Oximetry 87 L 95 06/14/18 00:00 06/14/18 01:00 06/14/18 02:00 Temperature 98.4 F Pulse Rate 64 66 67 Respiratory Rate 26 H 15 13 Blood Pressure 117/58 L 127/60 132/63 Pulse Oximetry 93 L 93 L 93 L 06/14/18 03:00 06/14/18 04:00 06/14/18 05:00 Temperature Pulse Rate 63 62 64 Respiratory Rate 13 26 H 27 H Blood Pressure 136/60 129/60 130/63 Pulse Oximetry 94 L 94 L 95 06/14/18 06:00 06/14/18 08:07 Temperature Pulse Rate 68 69 Respiratory Rate 18 Blood Pressure Pulse Oximetry 95 94 L Intake & Output 06/13/18 06/14/18 06/14/18 18:59 06:59 18:59 Intake Total 900 / 900 250 / 250 Output Total 425 / 425 450 / 450 Balance 475 / 475 -200 / -200 Weight 95.1 kg Intake: IV 250 / 250 150 / 150 Flexbumin 25% Inj 100 ML @ 60 100 / 100 mls/hr IV.SIG Q12H ANNE Rx#: [id number] Maxipime Inj 1,000 MG In NS Inj 100 / 100 100 / 100 100 ML @ 200 mls/hr IV.SIG Q12H ANNE Rx#:[id number] Diamox Inj 250 MG In NS Inj 50 50 / 50 50 / 50 ML @ 100 mls/hr IV.SIG Q12HR ANNE Rx#:[id number] Oral 650 / 650 100 / 100 Output: Urine Amount (Catheter) 425 / 425 450 / 450 Indwelling Urethral Catheter 425 / 425 450 / 450 Other: Date of Last Bowel Movement 06/13/18 06/13/18 Narrative: GENERAL: Chronically ill-appearing elderly female in [facility]. SKIN: Warm and dry. Pale. Ecchymoses over UE. HEENT: Pupils equal and round. Pale conjunctiva. Throat clear. NECK: Supple no tender LAD or JVD. HEART: RRR no m/r/g. LUNGS: Decreased breath sounds bilaterally with Bilat expiratory wheezing. Abdominal breathing. ABDOMEN: +BS, soft, nondistended. Obese EXTREMITIES: No LE edema. Diminished pedal pulses. NEURO: Awake and alert.No gross deficits. - Urinary Catheter Management Indwelling Urethral Catheter Cath placed during this visit: yes Reason for continuing: Hourly intake/output Insertion date: 06/08/18 Insertion time: 16:15 Results - Labs CBC & Chem 7: 06/14/18 03:35 06/14/18 03:35 Laboratory Results - last 24 hr 06/13/18 06/13/18 06/13/18 10:02 12:07 20:09 WBC RBC Hgb Hct MCV MCH MCHC RDW Plt Count MPV Sodium Potassium 3.8 Chloride Carbon Dioxide Anion Gap BUN Creatinine Estimated GFR POC Glucose 192 H 239 H Random Glucose Calcium 06/14/18 06/14/18 06/14/18 00:17 03:34 03:35 WBC 10.9 RBC 2.61 L Hgb 7.8 L Hct 23.7 L MCV 90.5 MCH 29.8 MCHC 32.9 RDW 15.9 Plt Count 204 MPV 8.2 Sodium Potassium Chloride Carbon Dioxide Anion Gap BUN Creatinine Estimated GFR POC Glucose 240 H 242 H Random Glucose Calcium 06/14/18 06/14/18 03:35 07:56 WBC RBC Hgb Hct MCV MCH MCHC RDW Plt Count MPV Sodium 144 Potassium 3.7 Chloride 108 H Carbon Dioxide 27.8 Anion Gap 8 BUN 33 H Creatinine 2.73 H Estimated GFR 17 L POC Glucose 238 H Random Glucose 222 H Calcium 8.4 L - Imaging Impressions Venous Doppler Study 06/13/18 00:00 CONCLUSION: 1. The study is negative for bilateral lower extremity deep venous thrombosis. - Procedures central line placement. Assessment and Plan - Assessment (1) STEPHIE (acute kidney injury) Code(s): N17.9 - Acute kidney failure, unspecified Status: Acute (2) GI hemorrhage Code(s): K92.2 - Gastrointestinal hemorrhage, unspecified Status: Resolved (3) Anemia Code(s): D64.9 - Anemia, unspecified Status: Acute (4) Respiratory failure Code(s): J96.90 - Respiratory failure, unspecified, unspecified whether with hypoxia or hypercapnia Status: Acute - Plan 68 year old female with history of COPD, HTN, HLD, and PE anticoagulated on Xarelto admitted from SNF on 05/20 for hemorrhagic shock secondary to GI bleeding. 06/13: Still with some SOB but distress seems to be improved compared to yesterday. Schedule DuoNebs. Increase gabapentin due to chronic, diffuse pain. Check Doppler U/S of B/L LE given significant calf tenderness. Will change Protonix to PO and continue to monitor. 06-14 ultrasounds of bilateral lower extremity are negative for DVTs AM LABS DW RN AND PT DC ULTRAM PO PERCOCETS FOR PAIN 1. STEPHIE - Creatinine and GFR essentially same today: 2.73 from 2.76 - UOP appears to be decreasing per EMR - Likely secondary to hypoperfusion from sepsis and possible medication related - Renal U/S normal - Nephrology following, recommending Diamox 250 mg IV BID - Albumin infusion per nephro - Renally dose meds and avoid nephrotoxic agents - Continue to closely monitor renal function 2. Acute on chronic respiratory failure, COPD - s/p intubation 05/20-05/21 - Acutely worsened on 06/12. ABG with normal pH, mildly elevated PCO2 and bicarb - Pulm following, added Solumedrol 40 mg IV BID and Cefepime - CXR 06/12 showed unchanged bibasilar infiltrates and small effusions - Change DuoNeb to Q4H SCHEDULED - Albuterol nebs PRN - BiPAP PRN - Titrate supplemental O2 - Continue Symbicort Add Mucinex Increase steroids 40MG SUBQ TID 3. GI bleed, resolved - H&H stable - Hemodynamically stable - Continue to hold anticoagulation - Change Protonix to PO - GI consulted earlier in course, s/p EGD/colonoscopy showing severe erythematous gastritis in the antrum and body and severe diverticulosis throughout the entire examined colon as well as large sized circumferential colitis in the sigmoid colon c/w ischemic colitis. Recommended repeat colonoscopy 1-2 months 4. Ischemic colitis, abdominal pain - Circumferential sigmoid colitis c/w ischemic colitis seen on colonoscopy - CTA abdomen demonstrated atherosclerosis with no major occlusions - General surgery consulted earlier in course, recommended medical management and resuscitation as needed for GI hemorrhage - OAC on hold secondary to hemorrhagic shock - Morphine PRN 5. Lisbeth UTI - Continue renally dosed Diflucan - Nystatin powder for inguinal mycosis 6. Peripheral neuropathy, chronic pain - Increase gabapentin to 200 mg Q8H - Continue Trazodone and tramadol PRN 7. HTN - Stable, continue amlodipine and Coreg 8. HLD - Continue statin 9. Physical deconditioning - Continue PT Acute on chronic pain will make sure she has extra morphine available DVT prophylaxis: SCDs, chemical anticoagulation C/I given GI bleed Code Status: FULL CODE Discussed Condition With: RN AND PT Discharge Planning: PENDING IMPROVEMENT AND CLEARANCE BY PULMONARY (3) Anemia Qualifiers: Other causes of anemia: acute posthemorrhagic (4) Respiratory failure Qualifiers: Chronicity: acute on chronic
[2018-06-14] MEDS: guaiFENesin 600 MG ER Tablet PO SCH ×2 (10:07→20:13)
--- NOTE | 2018-06-14 10:25 | P.PNNP ---
Subjective Interval history: Patient is alert, pain in legs improving. Physical Exam Vital signs: Vital Signs 06/13/18 10:54 06/13/18 11:00 06/13/18 11:34 Temperature Pulse Rate 68 66 Respiratory Rate 16 15 26 H Blood Pressure 127/60 Pulse Oximetry 93 L 06/13/18 12:00 06/13/18 12:01 06/13/18 13:00 Temperature 98 F Pulse Rate 67 67 75 Respiratory Rate 36 H 22 36 H Blood Pressure 128/78 128/78 122/72 Pulse Oximetry 92 L 94 L 92 L 06/13/18 14:00 06/13/18 15:00 06/13/18 15:02 Temperature Pulse Rate 75 68 69 Respiratory Rate 27 H 23 21 Blood Pressure 123/57 L 119/57 L Pulse Oximetry 93 L 95 06/13/18 16:00 06/13/18 17:00 06/13/18 17:22 Temperature 98 F Pulse Rate 71 72 Respiratory Rate 26 H 16 16 Blood Pressure 113/54 L 115/56 L Pulse Oximetry 93 L 92 L 06/13/18 18:00 06/13/18 19:00 06/13/18 19:57 Temperature Pulse Rate 73 73 Respiratory Rate 20 18 Blood Pressure 123/59 L 126/67 Pulse Oximetry 97 100 98 06/13/18 19:58 06/13/18 20:00 06/13/18 21:00 Temperature 98.4 F Pulse Rate 75 77 81 Respiratory Rate 24 28 H 24 Blood Pressure 128/59 L 125/59 L Pulse Oximetry 98 96 92 L 06/13/18 21:27 06/13/18 22:00 06/13/18 22:01 Temperature Pulse Rate 78 79 Respiratory Rate 24 28 H Blood Pressure 101/52 L Pulse Oximetry 92 L 75 L 87 L 06/13/18 23:00 06/13/18 23:26 06/14/18 00:00 Temperature 98.4 F Pulse Rate 66 66 64 Respiratory Rate 25 H 22 26 H Blood Pressure 136/60 117/58 L Pulse Oximetry 95 93 L 06/14/18 01:00 06/14/18 02:00 06/14/18 03:00 Temperature Pulse Rate 66 67 63 Respiratory Rate 15 13 13 Blood Pressure 127/60 132/63 136/60 Pulse Oximetry 93 L 93 L 94 L 06/14/18 04:00 06/14/18 05:00 06/14/18 06:00 Temperature Pulse Rate 62 64 68 Respiratory Rate 26 H 27 H Blood Pressure 129/60 130/63 Pulse Oximetry 94 L 95 95 06/14/18 08:07 Temperature Pulse Rate 69 Respiratory Rate 18 Blood Pressure Pulse Oximetry 94 L Intake & Output 06/13/18 06/14/18 06/14/18 18:59 06:59 18:59 Intake Total 900 / 900 250 / 250 Output Total 425 / 425 450 / 450 Balance 475 / 475 -200 / -200 Weight 95.1 kg Intake: IV 250 / 250 150 / 150 Flexbumin 25% Inj 100 ML @ 60 100 / 100 mls/hr IV.SIG Q12H ANNE Rx#: [id number] Maxipime Inj 1,000 MG In NS Inj 100 / 100 100 / 100 100 ML @ 200 mls/hr IV.SIG Q12H ANNE Rx#:[id number] Diamox Inj 250 MG In NS Inj 50 50 / 50 50 / 50 ML @ 100 mls/hr IV.SIG Q12HR ANNE Rx#:[id number] Oral 650 / 650 100 / 100 Output: Urine Amount (Catheter) 425 / 425 450 / 450 Indwelling Urethral Catheter 425 / 425 450 / 450 Other: Date of Last Bowel Movement 06/13/18 06/13/18 Narrative: GENERAL: Chronically ill-appearing elderly female in [place]. SKIN: Warm and dry. Pale. Ecchymoses over UE. HEENT: Pupils equal and round. Pale conjunctiva. Throat clear. NECK: Supple no tender LAD or JVD. HEART: RRR no m/r/g. LUNGS: Decreased breath sounds bilaterally with Bilat expiratory wheezing. Abdominal breathing. ABDOMEN: +BS, soft, nondistended. Obese EXTREMITIES: No LE edema. Diminished pedal pulses. NEURO: Awake and alert.No gross deficits. - Urinary Catheter Management Indwelling Urethral Catheter Cath placed during this visit: yes Reason for continuing: Hourly intake/output Insertion date: 06/08/18 Insertion time: 16:15 Assessment and Plan - Assessment (1) STEPHIE (acute kidney injury) Code(s): N17.9 - Acute kidney failure, unspecified Status: Acute (2) GI bleed requiring more than 4 units of blood in 24 hours, ICU, or surgery Code(s): K92.2 - Gastrointestinal hemorrhage, unspecified Status: Acute (3) Anemia Code(s): D64.9 - Anemia, unspecified Status: Acute Qualifiers: Other causes of anemia: acute posthemorrhagic (4) Shock Code(s): R57.9 - Shock, unspecified Status: Acute (5) Sepsis Code(s): A41.9 - Sepsis, unspecified organism Status: Acute - Plan Patient is getting IV fluid however the urine output is not recorded correctly She is getting Diflucan for yeast infection Acute renal failure appears to be due to hypoperfusion of the kidney as a result of sepsis Creatinine remain stable at 2.7. On Diamox 250 mg IV q. 12 hourly continue to replace potassium. K is normal, Follow BMP and the urine out put. K is 3.7, on replacement.
[2018-06-14] MEDS: oxyCODONE/Acetaminophen 10/325 Tablet PO PRN (10:31)
--- NOTE | 2018-06-14 14:38 | P.PN ---
Subjective Interval history: Better today and eating her lunch. On O2 3 L. Less cough and wheezing. Physical Exam Vital signs: Vital Signs 06/13/18 15:00 06/13/18 15:02 06/13/18 16:00 Temperature 98 F Pulse Rate 68 69 71 Respiratory Rate 23 21 26 H Blood Pressure 119/57 L 113/54 L Pulse Oximetry 95 93 L 06/13/18 17:00 06/13/18 17:22 06/13/18 18:00 Temperature Pulse Rate 72 73 Respiratory Rate 16 16 20 Blood Pressure 115/56 L 123/59 L Pulse Oximetry 92 L 97 06/13/18 19:00 06/13/18 19:57 06/13/18 19:58 Temperature Pulse Rate 73 75 Respiratory Rate 18 24 Blood Pressure 126/67 Pulse Oximetry 100 98 98 06/13/18 20:00 06/13/18 21:00 06/13/18 21:27 Temperature 98.4 F Pulse Rate 77 81 Respiratory Rate 28 H 24 Blood Pressure 128/59 L 125/59 L Pulse Oximetry 96 92 L 92 L 06/13/18 22:00 06/13/18 22:01 06/13/18 23:00 Temperature Pulse Rate 78 79 66 Respiratory Rate 24 28 H 25 H Blood Pressure 101/52 L 136/60 Pulse Oximetry 75 L 87 L 95 06/13/18 23:26 06/14/18 00:00 06/14/18 01:00 Temperature 98.4 F Pulse Rate 66 64 66 Respiratory Rate 22 26 H 15 Blood Pressure 117/58 L 127/60 Pulse Oximetry 93 L 93 L 06/14/18 02:00 06/14/18 03:00 06/14/18 04:00 Temperature Pulse Rate 67 63 62 Respiratory Rate 13 13 26 H Blood Pressure 132/63 136/60 129/60 Pulse Oximetry 93 L 94 L 94 L 06/14/18 05:00 06/14/18 06:00 06/14/18 07:00 Temperature Pulse Rate 64 62 62 Respiratory Rate 27 H 26 H 26 H Blood Pressure 130/63 135/63 134/64 Pulse Oximetry 95 95 95 06/14/18 08:00 06/14/18 08:07 06/14/18 09:00 Temperature 98.3 F Pulse Rate 73 69 76 Respiratory Rate 33 H 18 34 H Blood Pressure 144/69 H 133/60 Pulse Oximetry 94 L 94 L 93 L 06/14/18 10:00 06/14/18 11:00 06/14/18 12:00 Temperature 98.5 F Pulse Rate 64 61 59 L Respiratory Rate 19 25 H 13 Blood Pressure 132/64 130/63 130/62 Pulse Oximetry 94 L 93 L 95 06/14/18 12:22 Temperature Pulse Rate 68 Respiratory Rate 20 Blood Pressure Pulse Oximetry Intake & Output 06/13/18 06/14/18 06/14/18 18:59 06:59 18:59 Intake Total 900 / 900 250 / 250 250 / 250 Output Total 425 / 425 450 / 450 Balance 475 / 475 -200 / -200 250 / 250 Weight 95.1 kg Intake: IV 250 / 250 150 / 150 250 / 250 Flexbumin 25% Inj 100 ML @ 60 100 / 100 100 / 100 mls/hr IV.SIG Q12H ANNE Rx#: [id number] Maxipime Inj 1,000 MG In NS Inj 100 / 100 100 / 100 100 / 100 100 ML @ 200 mls/hr IV.SIG Q12H ANNE Rx#:[id number] Diamox Inj 250 MG In NS Inj 50 50 / 50 50 / 50 50 / 50 ML @ 100 mls/hr IV.SIG Q12HR ANNE Rx#:[id number] Oral 650 / 650 100 / 100 Output: Urine Amount (Catheter) 425 / 425 450 / 450 Indwelling Urethral Catheter 425 / 425 450 / 450 Other: Date of Last Bowel Movement 06/13/18 06/13/18 06/13/18 Narrative: GENERAL: Chronically ill-appearing elderly female in [place].Confused. SKIN: Warm and dry. Pale. Ecchymoses over UE. HEENT: Pupils equal and round. Pale conjunctiva. Throat clear. NECK: Supple no tender LAD or JVD. HEART: RRR no m/r/g. LUNGS: Decreased breath sounds bilaterally with expiratory wheezing. and basal crackles . ABDOMEN: +BS, soft, nondistended. Obese EXTREMITIES: 1 + LE edema. Diminished pedal pulses. NEURO: Awake and alert.No gross deficits. - Urinary Catheter Management Indwelling Urethral Catheter Cath placed during this visit: yes Reason for continuing: Hourly intake/output Insertion date: 06/08/18 Insertion time: 16:15 Results - Labs CBC & Chem 7: 06/14/18 03:35 06/14/18 03:35 Laboratory Results - last 24 hr 06/13/18 06/14/18 06/14/18 20:09 00:17 03:34 WBC RBC Hgb Hct MCV MCH MCHC RDW Plt Count MPV Sodium Potassium Chloride Carbon Dioxide Anion Gap BUN Creatinine Estimated GFR POC Glucose 239 H 240 H 242 H Random Glucose Calcium 06/14/18 06/14/18 06/14/18 03:35 03:35 07:56 WBC 10.9 RBC 2.61 L Hgb 7.8 L Hct 23.7 L MCV 90.5 MCH 29.8 MCHC 32.9 RDW 15.9 Plt Count 204 MPV 8.2 Sodium 144 Potassium 3.7 Chloride 108 H Carbon Dioxide 27.8 Anion Gap 8 BUN 33 H Creatinine 2.73 H Estimated GFR 17 L POC Glucose 238 H Random Glucose 222 H Calcium 8.4 L 06/14/18 12:56 WBC RBC Hgb Hct MCV MCH MCHC RDW Plt Count MPV Sodium Potassium Chloride Carbon Dioxide Anion Gap BUN Creatinine Estimated GFR POC Glucose 224 H Random Glucose Calcium - Procedures central line placement. Assessment and Plan - Assessment (1) GI bleed requiring more than 4 units of blood in 24 hours, ICU, or surgery Code(s): K92.2 - Gastrointestinal hemorrhage, unspecified Status: Acute (2) Anemia Code(s): D64.9 - Anemia, unspecified Status: Acute (3) Shock Code(s): R57.9 - Shock, unspecified Status: Acute (4) COPD (chronic obstructive pulmonary disease) Code(s): J44.9 - Chronic obstructive pulmonary disease, unspecified Status: Chronic (5) Major depression, recurrent Code(s): F33.9 - Major depressive disorder, recurrent, unspecified Status: Acute (6) Sepsis Code(s): A41.9 - Sepsis, unspecified organism Status: Acute (7) Atelectasis Code(s): J98.11 - Atelectasis Status: Acute (8) Respiratory failure Code(s): J96.90 - Respiratory failure, unspecified, unspecified whether with hypoxia or hypercapnia Status: Acute (9) Aspiration pneumonia Code(s): J69.0 - Pneumonitis due to inhalation of food and vomit Status: Acute (10) Mixed personality disorder Code(s): F60.89 - Other specific personality disorders Status: Suspected - Plan 1. Place on 3 L O2. 2. Solumedrol 40 Mg BID IV 3. Duonebs qid and Q4H PRN 4. Cont antibiotics Cefipime 5. PT to help activity. 6. CXR ,BMP in am 7. Symbicort 160/4.5 mcg , 2puffs BID (2) Anemia Qualifiers: Other causes of anemia: acute posthemorrhagic (4) COPD (chronic obstructive pulmonary disease) Qualifiers: COPD type: unspecified COPD Qualified Code(s): J44.9 - Chronic obstructive pulmonary disease, unspecified (8) Respiratory failure Qualifiers: Chronicity: acute on chronic
[2018-06-14] MEDS: traZODone 50 MG Tablet PO SCH (20:13)
[2018-06-14] MEDS: Insulin Detemir Inj 1,000 UNIT/10 ML Vial SQ SCH (20:15)
[2018-06-15] MEDS: Insulin NovoLOG Aspart Correctional Sugar Inj SQ SCH ×6 (00:10→22:19)
[2018-06-15] MEDS: MethylPREDNISolone Sod Succinate Inj 40 MG/ML Vial IV.PUSH SCH ×4 (00:10→22:09)
[2018-06-15] MEDS: Gabapentin 100 MG Capsule PO SCH ×3 (04:11→17:00)
[2018-06-15] MEDS: Albumin Human 25% Inj 100 ML IV.SIG SCH ×2 (04:12→16:49)
[2018-06-15 04:55] LABS: Baso % (Auto) 0.2 % (0.0-2.0); Hematocrit 24.6 % (35.0-46.0); Lymph # (Auto) 0.5 th/mm3 (1.0-4.8); Lymph % (Auto) 5.4 % (9.0-44.0); Mean Corpuscular HGB Conc 32.6 % (32.0-36.0); Mean Corpuscular Hemoglobin 29.4 pg (27.0-34.0); Mean Corpuscular Volume 90.4 fL (80.0-100.0); Mean Platelet Volume 8.3 fL (7.0-11.0); Mono # (Auto) 0.2 th/mm3 (0.0-0.9); Mono % (Auto) 2.3 % (0.0-8.0); Neut # (Auto) 9.3 th/mm3 (1.8-7.7); Neut % (Auto) 92.1 % (16.0-70.0); Platelet Count 251 th/mm3 (150-450); Red Blood Count 2.72 mil/mm3 (4.00-5.30); Red Cell Distribution Width 16.1 % (11.6-17.2); White Blood Count 10.1 th/mm3 (4.0-11.0)
[2018-06-15 05:23] LABS: Albumin 3.1 g/dL (3.4-5.0); Anion Gap 8 meq/L (5-15); Aspartate Aminotransferase 13 U/L (15-37); Blood Urea Nitrogen 41 mg/dL (7-18); Calcium 8.4 mg/dL (8.5-10.1); Carbon Dioxide 25.9 meq/L (21.0-32.0); Chloride 111 meq/L (98-107); Glomerular Filtration Rate 18 mL/min (>89); Glucose,Random 196 mg/dL (74-106); Potassium 3.9 meq/L (3.5-5.1); Sodium 145 meq/L (136-145)
[2018-06-15 05:35] LABS: Alanine Aminotransferase 17 U/L (10-53); Alkaline Phosphatase 123 U/L (45-117); Free T4 (Free Thyroxine) 0.81 ng/dL (0.76-1.46); Phosphorus 3.6 mg/dL (2.5-4.9); Thyroid Stimulating Hormone 0.507 uIU/mL (0.358-3.740)
--- NOTE | 2018-06-15 09:47 | P.PNIM ---
Subjective Interval history: 06-14 PATIENT STILL WHEEZING, COMPLAINS OF PAIN ALL OVER EVEN THOUGH JUST HAD 4MG IV MORPHINE FOLLOW UP GI bleed, acute kidney injury, COPD with acute on chronic respiratory failure, Has chronic pain in her legs positive wheezing We will add Mucinex Incentive spirometry Increase steroids Symbicort if she is not on 06-15 BREATHING A LITTLE BETTER CAN BE MOVED OUT OF ICU DW RN AND PT DOES NOT NEED TO BE IN ICU Physical Exam Vital signs: Vital Signs 06/14/18 10:00 06/14/18 11:00 06/14/18 12:00 Temperature 98.5 F Pulse Rate 64 61 59 L Respiratory Rate 19 25 H 13 Blood Pressure 132/64 130/63 130/62 Pulse Oximetry 94 L 93 L 95 06/14/18 12:22 06/14/18 14:00 06/14/18 16:00 Temperature Pulse Rate 68 61 68 Respiratory Rate 20 20 Blood Pressure 130/62 Pulse Oximetry 06/14/18 16:09 06/14/18 16:25 06/14/18 18:00 Temperature Pulse Rate 59 L 63 Respiratory Rate 24 Blood Pressure Pulse Oximetry 98 06/14/18 19:00 06/14/18 19:17 06/14/18 19:19 Temperature Pulse Rate 59 L Respiratory Rate 16 Blood Pressure Pulse Oximetry 98 98 06/14/18 20:00 06/14/18 22:00 06/14/18 22:10 Temperature 98.4 F Pulse Rate 60 59 L Respiratory Rate 13 Blood Pressure 122/58 L Pulse Oximetry 96 95 06/14/18 23:36 06/15/18 00:00 06/15/18 02:00 Temperature 98.2 F Pulse Rate 57 L 56 L 58 L Respiratory Rate 20 16 Blood Pressure 125/68 Pulse Oximetry 96 06/15/18 03:53 06/15/18 03:56 06/15/18 04:00 Temperature 97.9 F Pulse Rate 65 64 Respiratory Rate 16 14 Blood Pressure 124/58 L Pulse Oximetry 96 94 L 06/15/18 06:00 06/15/18 07:32 06/15/18 08:33 Temperature Pulse Rate 63 62 Respiratory Rate 13 Blood Pressure Pulse Oximetry 94 L 96 96 Intake & Output 06/14/18 06/15/18 06/15/18 18:59 06:59 18:59 Intake Total 850 / 850 350 / 350 Output Total 350 / 350 425 / 425 Balance 500 / 500 -75 / -75 Weight 97.6 kg Intake: IV 250 / 250 350 / 350 Flexbumin 25% Inj 100 ML @ 60 100 / 100 200 / 200 mls/hr IV.SIG Q12H ANNE Rx#: [id number] Maxipime Inj 1,000 MG In NS Inj 100 / 100 100 / 100 100 ML @ 200 mls/hr IV.SIG Q12H ANNE Rx#:[id number] Diamox Inj 250 MG In NS Inj 50 50 / 50 50 / 50 ML @ 100 mls/hr IV.SIG Q12HR ANNE Rx#:[id number] Oral 600 / 600 0 / 0 Output: Urine Amount (Catheter) 350 / 350 425 / 425 Indwelling Urethral Catheter 350 / 350 425 / 425 Other: Date of Last Bowel Movement 06/13/18 06/13/18 # Bowel Movements 0 Narrative: GENERAL: Chronically ill-appearing elderly female in NAD.Confused. SKIN: Warm and dry. Pale. Ecchymoses over UE. HEENT: Pupils equal and round. Pale conjunctiva. Throat clear. NECK: Supple no tender LAD or JVD. HEART: RRR no m/r/g. LUNGS: Decreased breath sounds bilaterally with expiratory wheezing. and basal crackles . ABDOMEN: +BS, soft, nondistended. Obese EXTREMITIES: 1 + LE edema. Diminished pedal pulses. NEURO: Awake and alert.No gross deficits. - Urinary Catheter Management Indwelling Urethral Catheter Cath placed during this visit: yes Reason for continuing: Hourly intake/output Insertion date: 06/08/18 Insertion time: 16:15 Results - Labs CBC & Chem 7: 06/15/18 03:26 06/15/18 03:26 Laboratory Results - last 24 hr 06/14/18 06/14/18 06/14/18 12:56 15:38 19:43 WBC RBC Hgb Hct MCV MCH MCHC RDW Plt Count MPV Neut % (Auto) Lymph % (Auto) [place] % (Auto) Eos % (Auto) Baso % (Auto) Neut # (Auto) Lymph # (Auto) [place] # (Auto) Eos # (Auto) Baso # (Auto) WBC Differential Differential Comment Sodium Potassium Chloride Carbon Dioxide Anion Gap BUN Creatinine Estimated GFR POC Glucose 224 H 231 H 216 H Random Glucose Calcium Phosphorus Total Bilirubin AST ALT Alkaline Phosphatase Total Protein Albumin TSH Free T4 06/14/18 06/15/18 06/15/18 23:45 03:26 03:26 WBC 10.1 RBC 2.72 L Hgb 8.0 L Hct 24.6 L MCV 90.4 MCH 29.4 MCHC 32.6 RDW 16.1 Plt Count 251 MPV 8.3 Neut % (Auto) 92.1 H Lymph % (Auto) 5.4 L [place] % (Auto) 2.3 Eos % (Auto) 0.0 Baso % (Auto) 0.2 Neut # (Auto) 9.3 H Lymph # (Auto) 0.5 L [place] # (Auto) 0.2 Eos # (Auto) 0.0 Baso # (Auto) 0.0 WBC Differential . Differential Comment Auto diff final Sodium 145 Potassium 3.9 Chloride 111 H Carbon Dioxide 25.9 Anion Gap 8 BUN 41 H Creatinine 2.69 H Estimated GFR 18 L POC Glucose 234 H Random Glucose 196 H Calcium 8.4 L Phosphorus 3.6 Total Bilirubin 0.3 AST 13 L ALT 17 Alkaline Phosphatase 123 H Total Protein 6.0 L Albumin 3.1 L TSH 0.507 Free T4 0.81 06/15/18 04:06 WBC RBC Hgb Hct MCV MCH MCHC RDW Plt Count MPV Neut % (Auto) Lymph % (Auto) [place] % (Auto) Eos % (Auto) Baso % (Auto) Neut # (Auto) Lymph # (Auto) [place] # (Auto) Eos # (Auto) Baso # (Auto) WBC Differential Differential Comment Sodium Potassium Chloride Carbon Dioxide Anion Gap BUN Creatinine Estimated GFR POC Glucose 221 H Random Glucose Calcium Phosphorus Total Bilirubin AST ALT Alkaline Phosphatase Total Protein Albumin TSH Free T4 - Imaging Abdomen X-Ray 05/20/18 02:10 CONCLUSION: Nonspecific, benign abdomen appearance. Abdomen/Pelvis CT 05/20/18 02:10 CONCLUSION: Rectal fecal impaction and likely mild proctitis Chest X-Ray 05/20/18 02:10 CONCLUSION: Negative examination. Chest X-Ray 05/20/18 05:29 CONCLUSION: Satisfactory endotracheal tube positioning. Slight bibasilar parenchymal opacities. Head CT 05/20/18 05:44 CONCLUSION: No acute intracranial findings . Chest X-Ray 05/20/18 08:57 CONCLUSION: 1. Left IJ central line in the mid SVC without pneumothorax. Head CT 05/21/18 19:41 CONCLUSION: 1. No acute findings. Stable exam since May 20. Chronic white matter ischemic changes. Retention cyst right maxillary sinus. . Chest X-Ray 05/23/18 06:00 CONCLUSION: Worsening bibasilar parenchymal consolidation. Interim extubation and nasogastric tube removal. Chest X-Ray 05/26/18 09:08 CONCLUSION: Improving bibasilar infiltrates and interstitial edema. Abdomen/Pelvis CTA 05/27/18 00:00 CONCLUSION: 1. There is severe atherosclerotic disease of the aorta. Atherosclerotic disease is present within the superior mesenteric artery but no high-grade stenosis or occlusion is visualized on the arterial side of the mesenteric vasculature. Please note that the venous mesenteric structures are not well evaluated on this examination timed for arterial enhancement. Additionally, there are no secondary findings to suggest mesenteric ischemia including no intramural air. 2. Wall thickening of the rectum suggesting a proctitis. 3. New small bilateral pleural effusions and new small volume of free fluid in the abdomen and pelvis. Also, anasarca is new. Chest X-Ray 05/28/18 23:38 CONCLUSION: 1. New right IJ line with tip at the atriocaval junction. No pneumothorax. 2. Mild atelectasis and tiny effusions at both lung bases not significantly changed. Chest X-Ray 05/29/18 00:00 CONCLUSION: No change mild atelectasis and small effusions at each lung base. Chest X-Ray 05/31/18 00:00 CONCLUSION: Stable chest x-ray with small bilateral pleural effusions with associated volume loss and/or airspace consolidation. Chest X-Ray 06/05/18 00:00 CONCLUSION: Mild parenchymal consolidation and small effusions at each lung base not significantly changed. Abdomen/Bladder Ultrasound 06/08/18 00:00 CONCLUSION: 1. Negative renal sonogram. No obstruction observed. Chest X-Ray 06/12/18 00:00 CONCLUSION: Unchanged bibasal infiltrates and small effusions. Venous Doppler Study 06/13/18 00:00 CONCLUSION: 1. The study is negative for bilateral lower extremity deep venous thrombosis. - Procedures central line placement. Assessment and Plan - Assessment (1) STEPHIE (acute kidney injury) Code(s): N17.9 - Acute kidney failure, unspecified Status: Acute (2) GI hemorrhage Code(s): K92.2 - Gastrointestinal hemorrhage, unspecified Status: Resolved (3) Anemia Code(s): D64.9 - Anemia, unspecified Status: Acute (4) Respiratory failure Code(s): J96.90 - Respiratory failure, unspecified, unspecified whether with hypoxia or hypercapnia Status: Acute - Plan 68 year old female with history of COPD, HTN, HLD, and PE anticoagulated on Xarelto admitted from SNF on 05/20 for hemorrhagic shock secondary to GI bleeding. 06/13: Still with some SOB but distress seems to be improved compared to yesterday. Schedule DuoNebs. Increase gabapentin due to chronic, diffuse pain. Check Doppler U/S of B/L LE given significant calf tenderness. Will change Protonix to PO and continue to monitor. 06-14 ultrasounds of bilateral lower extremity are negative for DVTs AM LABS DW RN AND PT DC ULTRAM PO PERCOCETS FOR PAIN 06-15 PAIN APPEARS BETTER CONTROLLED MOVE OUT OF ICU 1. STEPHIE - Creatinine and GFR essentially same today: 2.73 from 2.76 - UOP appears to be decreasing per EMR - Likely secondary to hypoperfusion from sepsis and possible medication related - Renal U/S normal - Nephrology following, recommending Diamox 250 mg IV BID - Albumin infusion per nephro - Renally dose meds and avoid nephrotoxic agents - Continue to closely monitor renal function 2. Acute on chronic respiratory failure, COPD - s/p intubation 05/20-05/21 - Acutely worsened on 06/12. ABG with normal pH, mildly elevated PCO2 and bicarb - Pulm following, added Solumedrol 40 mg IV BID and Cefepime - CXR 06/12 showed unchanged bibasilar infiltrates and small effusions - Change DuoNeb to Q4H SCHEDULED - Albuterol nebs PRN - BiPAP PRN - Titrate supplemental O2 - Continue Symbicort Add Mucinex Increase steroids 40MG SUBQ TID 3. GI bleed, resolved - H&H stable - Hemodynamically stable - Continue to hold anticoagulation - Change Protonix to PO - GI consulted earlier in course, s/p EGD/colonoscopy showing severe erythematous gastritis in the antrum and body and severe diverticulosis throughout the entire examined colon as well as large sized circumferential colitis in the sigmoid colon c/w ischemic colitis. Recommended repeat colonoscopy 1-2 months 4. Ischemic colitis, abdominal pain - Circumferential sigmoid colitis c/w ischemic colitis seen on colonoscopy - CTA abdomen demonstrated atherosclerosis with no major occlusions - General surgery consulted earlier in course, recommended medical management and resuscitation as needed for GI hemorrhage - OAC on hold secondary to hemorrhagic shock - Morphine PRN 5. Lisbeth UTI - Continue renally dosed Diflucan - Nystatin powder for inguinal mycosis 6. Peripheral neuropathy, chronic pain - Increase gabapentin to 200 mg Q8H - Continue Trazodone and tramadol PRN 7. HTN - Stable, continue amlodipine and Coreg 8. HLD - Continue statin 9. Physical deconditioning - Continue PT Acute on chronic pain will make sure she has extra morphine available DVT prophylaxis: SCDs, chemical anticoagulation C/I given GI bleed TRANSFER OUT OF ICU DW RN AND PT PT AND OT Code Status: FULL CODE Discussed Condition With: RN AND PT Discharge Planning: PENDING IMPROVEMENT AND CLEARANCE BY PULMONARY (3) Anemia Qualifiers: Other causes of anemia: acute posthemorrhagic (4) Respiratory failure Qualifiers: Chronicity: acute on chronic
[2018-06-15] MEDS: acetaZOLAMIDE Inj 250 MG in Sodium Chlor 0.9% Inj 50 ML IV.SIG SCH (10:50)
[2018-06-15] MEDS: Carvedilol 12.5 MG Tablet PO SCH ×2 (10:50→22:06)
[2018-06-15] MEDS: guaiFENesin 600 MG ER Tablet PO SCH ×2 (10:52→22:05)
[2018-06-15] MEDS: Polyvinyl Alcohol/Povidone PF Opth Drops 0.4 ML Dropperette EACH EYE SCH ×2 (10:53→22:08)
[2018-06-15] MEDS: Budesonide-Formoterol 160/4.5 MCG 6 GM Inhaler INH SCH ×2 (10:53→22:07)
[2018-06-15] MEDS: Mupirocin 2% Nasal Oint Topical Syringe EACH NARE SCH ×2 (10:54→22:04)
[2018-06-15] MEDS: Senna/Docusate Sodium 8.6/50 MG Tablet PO SCH ×2 (11:33→22:05)
[2018-06-15] MEDS: Lactic Acid (Ammonium Lactate) 12% Lotion 225 GM Bottle TOPICAL SCH (11:33)
--- NOTE | 2018-06-15 13:07 | P.PNNP ---
Subjective Interval history: remains in ICU Physical Exam Vital signs: Vital Signs 06/14/18 14:00 06/14/18 16:00 06/14/18 16:09 Temperature Pulse Rate 61 68 59 L Respiratory Rate 20 24 Blood Pressure 130/62 Pulse Oximetry 06/14/18 16:25 06/14/18 18:00 06/14/18 19:00 Temperature Pulse Rate 63 Respiratory Rate Blood Pressure Pulse Oximetry 98 98 06/14/18 19:17 06/14/18 19:19 06/14/18 20:00 Temperature 98.4 F Pulse Rate 59 L 60 Respiratory Rate 16 13 Blood Pressure 122/58 L Pulse Oximetry 98 96 06/14/18 22:00 06/14/18 22:10 06/14/18 23:36 Temperature Pulse Rate 59 L 57 L Respiratory Rate 20 Blood Pressure Pulse Oximetry 95 06/15/18 00:00 06/15/18 02:00 06/15/18 03:53 Temperature 98.2 F Pulse Rate 56 L 58 L Respiratory Rate 16 Blood Pressure 125/68 Pulse Oximetry 96 96 06/15/18 03:56 06/15/18 04:00 06/15/18 06:00 Temperature 97.9 F Pulse Rate 65 64 63 Respiratory Rate 16 14 Blood Pressure 124/58 L Pulse Oximetry 94 L 94 L 06/15/18 07:32 06/15/18 08:00 06/15/18 08:33 Temperature 98.0 F Pulse Rate 62 70 Respiratory Rate 13 15 Blood Pressure 142/65 H Pulse Oximetry 96 95 96 06/15/18 10:00 06/15/18 11:22 Temperature Pulse Rate 71 75 Respiratory Rate 18 Blood Pressure Pulse Oximetry Intake & Output 06/14/18 06/15/18 06/15/18 18:59 06:59 18:59 Intake Total 850 / 850 350 / 350 50 / 50 Output Total 350 / 350 425 / 425 Balance 500 / 500 -75 / -75 50 / 50 Weight 97.6 kg Intake: IV 250 / 250 350 / 350 50 / 50 Flexbumin 25% Inj 100 ML @ 60 100 / 100 200 / 200 mls/hr IV.SIG Q12H ANNE Rx#: [id number] Maxipime Inj 1,000 MG In NS Inj 100 / 100 100 / 100 100 ML @ 200 mls/hr IV.SIG Q12H ANNE Rx#:[id number] Diamox Inj 250 MG In NS Inj 50 50 / 50 50 / 50 50 / 50 ML @ 100 mls/hr IV.SIG Q12HR ANNE Rx#:[id number] Oral 600 / 600 0 / 0 Output: Urine Amount (Catheter) 350 / 350 425 / 425 Indwelling Urethral Catheter 350 / 350 425 / 425 Other: Date of Last Bowel Movement 06/13/18 06/13/18 06/13/18 # Bowel Movements 0 Narrative: GENERAL: Chronically ill-appearing elderly female in NAD.Confused. SKIN: Warm and dry. Pale. Ecchymoses over UE. HEENT: Pupils equal and round. Pale conjunctiva. Throat clear. NECK: Supple no tender LAD or JVD. HEART: RRR no m/r/g. LUNGS: Decreased breath sounds bilaterally with expiratory wheezing. and basal crackles . ABDOMEN: +BS, soft, nondistended. Obese EXTREMITIES: 1 + LE edema. Diminished pedal pulses. NEURO: Awake and alert.No gross deficits. - Urinary Catheter Management Indwelling Urethral Catheter Cath placed during this visit: yes Reason for continuing: Hourly intake/output Insertion date: 06/08/18 Insertion time: 16:15 Assessment and Plan - Assessment (1) STEPHIE (acute kidney injury) Code(s): N17.9 - Acute kidney failure, unspecified Status: Acute (2) GI bleed requiring more than 4 units of blood in 24 hours, ICU, or surgery Code(s): K92.2 - Gastrointestinal hemorrhage, unspecified Status: Acute (3) Anemia Code(s): D64.9 - Anemia, unspecified Status: Acute Qualifiers: Other causes of anemia: acute posthemorrhagic (4) Shock Code(s): R57.9 - Shock, unspecified Status: Acute (5) Sepsis Code(s): A41.9 - Sepsis, unspecified organism Status: Acute - Plan Patient is in ARF She is getting Diflucan for yeast infection Acute renal failure appears to be due to hypoperfusion of the kidney as a result of sepsis Creatinine remain stable at 2.6. On Diamox 250 mg IV q. 12 hourly continue to replace potassium. stop Diamox K is normal, Follow BMP and the urine out put. UOP 750 , king out give Lasix 40 mg PO daily
[2018-06-15 17:37] LABS: Hemoglobin A1c 6.6 % (4.3-6.0)
--- NOTE | 2018-06-15 18:35 | P.PN ---
Subjective Interval history: Doing better. On O2 N/C at 3 L. Good output. No active GI bleed. Physical Exam Vital signs: Vital Signs 06/14/18 19:00 06/14/18 19:17 06/14/18 19:19 Temperature Pulse Rate 59 L Respiratory Rate 16 Blood Pressure Pulse Oximetry 98 98 06/14/18 20:00 06/14/18 22:00 06/14/18 22:10 Temperature 98.4 F Pulse Rate 60 59 L Respiratory Rate 13 Blood Pressure 122/58 L Pulse Oximetry 96 95 06/14/18 23:36 06/15/18 00:00 06/15/18 02:00 Temperature 98.2 F Pulse Rate 57 L 56 L 58 L Respiratory Rate 20 16 Blood Pressure 125/68 Pulse Oximetry 96 06/15/18 03:53 06/15/18 03:56 06/15/18 04:00 Temperature 97.9 F Pulse Rate 65 64 Respiratory Rate 16 14 Blood Pressure 124/58 L Pulse Oximetry 96 94 L 06/15/18 06:00 06/15/18 07:32 06/15/18 08:00 Temperature 98.0 F Pulse Rate 63 62 70 Respiratory Rate 13 15 Blood Pressure 142/65 H Pulse Oximetry 94 L 96 95 06/15/18 08:33 06/15/18 10:00 06/15/18 11:22 Temperature Pulse Rate 71 75 Respiratory Rate 18 Blood Pressure Pulse Oximetry 96 06/15/18 12:00 06/15/18 14:00 06/15/18 15:52 Temperature 98.1 F Pulse Rate 69 67 75 Respiratory Rate 15 16 Blood Pressure 163/70 H Pulse Oximetry 95 Intake & Output 06/14/18 06/15/18 06/15/18 18:59 06:59 18:59 Intake Total 850 / 850 350 / 350 250 / 250 Output Total 350 / 350 425 / 425 Balance 500 / 500 -75 / -75 250 / 250 Weight 97.6 kg Intake: IV 250 / 250 350 / 350 250 / 250 Flexbumin 25% Inj 100 ML @ 60 100 / 100 200 / 200 100 / 100 mls/hr IV.SIG Q12H ANNE Rx#: [id number] Maxipime Inj 1,000 MG In NS Inj 100 / 100 100 / 100 100 / 100 100 ML @ 200 mls/hr IV.SIG Q12H ANNE Rx#:[id number] Diamox Inj 250 MG In NS Inj 50 50 / 50 50 / 50 50 / 50 ML @ 100 mls/hr IV.SIG Q12HR ANNE Rx#:[id number] Oral 600 / 600 0 / 0 Output: Urine Amount (Catheter) 350 / 350 425 / 425 Indwelling Urethral Catheter 350 / 350 425 / 425 Other: Date of Last Bowel Movement 06/13/18 06/13/18 06/13/18 # Bowel Movements 0 Narrative: GENERAL: Chronically ill-appearing elderly female in NAD.Confused. SKIN: Warm and dry. Pale. Ecchymoses over UE. HEENT: Pupils equal and round. Pale conjunctiva. Throat clear. NECK: Supple no tender LAD or JVD. HEART: RRR no m/r/g. LUNGS: Decreased breath sounds bilaterally with expiratory wheezing. and basal crackles . ABDOMEN: +BS, soft, nondistended. Obese and No organomegaly. EXTREMITIES: 1 + LE edema. Diminished pedal pulses. NEURO: Awake and alert.No gross deficits. - Urinary Catheter Management Indwelling Urethral Catheter Cath placed during this visit: yes, but has since been removed by the nurse Reason for continuing: Continue criteria not met Insertion date: 06/08/18 Insertion time: 16:15 Removal date: 06/15/18 Removal time: 12:00 Results - Labs CBC & Chem 7: 06/15/18 03:26 06/15/18 03:26 Laboratory Results - last 24 hr 06/14/18 06/14/18 06/15/18 19:43 23:45 03:26 WBC 10.1 RBC 2.72 L Hgb 8.0 L Hct 24.6 L MCV 90.4 MCH 29.4 MCHC 32.6 RDW 16.1 Plt Count 251 MPV 8.3 Neut % (Auto) 92.1 H Lymph % (Auto) 5.4 L [place] % (Auto) 2.3 Eos % (Auto) 0.0 Baso % (Auto) 0.2 Neut # (Auto) 9.3 H Lymph # (Auto) 0.5 L [place] # (Auto) 0.2 Eos # (Auto) 0.0 Baso # (Auto) 0.0 WBC Differential . Differential Comment Auto diff final Sodium Potassium Chloride Carbon Dioxide Anion Gap BUN Creatinine Estimated GFR POC Glucose 216 H 234 H Random Glucose Hemoglobin A1c Calcium Phosphorus Total Bilirubin AST ALT Alkaline Phosphatase Total Protein Albumin TSH Free T4 06/15/18 06/15/18 06/15/18 03:26 03:26 04:06 WBC RBC Hgb Hct MCV MCH MCHC RDW Plt Count MPV Neut % (Auto) Lymph % (Auto) [place] % (Auto) Eos % (Auto) Baso % (Auto) Neut # (Auto) Lymph # (Auto) [place] # (Auto) Eos # (Auto) Baso # (Auto) WBC Differential Differential Comment Sodium 145 Potassium 3.9 Chloride 111 H Carbon Dioxide 25.9 Anion Gap 8 BUN 41 H Creatinine 2.69 H Estimated GFR 18 L POC Glucose 221 H Random Glucose 196 H Hemoglobin A1c 6.6 H Calcium 8.4 L Phosphorus 3.6 Total Bilirubin 0.3 AST 13 L ALT 17 Alkaline Phosphatase 123 H Total Protein 6.0 L Albumin 3.1 L TSH 0.507 Free T4 0.81 06/15/18 06/15/18 06/15/18 11:01 13:20 16:28 WBC RBC Hgb Hct MCV MCH MCHC RDW Plt Count MPV Neut % (Auto) Lymph % (Auto) [place] % (Auto) Eos % (Auto) Baso % (Auto) Neut # (Auto) Lymph # (Auto) [place] # (Auto) Eos # (Auto) Baso # (Auto) WBC Differential Differential Comment Sodium Potassium Chloride Carbon Dioxide Anion Gap BUN Creatinine Estimated GFR POC Glucose 269 H 243 H 225 H Random Glucose Hemoglobin A1c Calcium Phosphorus Total Bilirubin AST ALT Alkaline Phosphatase Total Protein Albumin TSH Free T4 - Procedures central line placement. Assessment and Plan - Assessment (1) GI bleed requiring more than 4 units of blood in 24 hours, ICU, or surgery Code(s): K92.2 - Gastrointestinal hemorrhage, unspecified Status: Acute (2) Anemia Code(s): D64.9 - Anemia, unspecified Status: Acute (3) Shock Code(s): R57.9 - Shock, unspecified Status: Acute (4) COPD (chronic obstructive pulmonary disease) Code(s): J44.9 - Chronic obstructive pulmonary disease, unspecified Status: Chronic (5) Major depression, recurrent Code(s): F33.9 - Major depressive disorder, recurrent, unspecified Status: Acute (6) Sepsis Code(s): A41.9 - Sepsis, unspecified organism Status: Acute (7) Atelectasis Code(s): J98.11 - Atelectasis Status: Acute (8) Respiratory failure Code(s): J96.90 - Respiratory failure, unspecified, unspecified whether with hypoxia or hypercapnia Status: Acute (9) Aspiration pneumonia Code(s): J69.0 - Pneumonitis due to inhalation of food and vomit Status: Acute (10) Mixed personality disorder Code(s): F60.89 - Other specific personality disorders Status: Suspected - Plan 1. Cont on 3 L O2. 2. Taper Solumedrol to 40 Mg BID IV 3. Duonebs qid and Q4H PRN 4. Cont antibiotics Cefipime for 5 days 5. PT to help activity. 6. CBC ,BMP in am 7. Symbicort 160/4.5 mcg , 2puffs BID 8. Transfer to tele. (2) Anemia Qualifiers: Other causes of anemia: acute posthemorrhagic (4) COPD (chronic obstructive pulmonary disease) Qualifiers: COPD type: unspecified COPD Qualified Code(s): J44.9 - Chronic obstructive pulmonary disease, unspecified (8) Respiratory failure Qualifiers: Chronicity: acute on chronic
[2018-06-15] MEDS: traZODone 50 MG Tablet PO SCH (22:05)
[2018-06-15] MEDS: Insulin Detemir Inj 1,000 UNIT/10 ML Vial SQ SCH (22:06)
[2018-06-15] MEDS: oxyCODONE/Acetaminophen 10/325 Tablet PO PRN (22:30)
[2018-06-16] MEDS: Insulin NovoLOG Aspart Correctional Sugar Inj SQ SCH ×6 (00:36→20:35)
[2018-06-16] MEDS: Gabapentin 100 MG Capsule PO SCH ×3 (03:01→18:47)
[2018-06-16] MEDS: Albumin Human 25% Inj 100 ML IV.SIG SCH ×2 (03:45→15:55)
[2018-06-16 07:19] LABS: Baso % (Auto) 0.1 % (0.0-2.0); Hematocrit 22.7 % (35.0-46.0); Hemoglobin 7.6 gm/dL (11.6-15.3); Lymph # (Auto) 0.5 th/mm3 (1.0-4.8); Lymph % (Auto) 6.6 % (9.0-44.0); Mean Corpuscular HGB Conc 33.6 % (32.0-36.0); Mean Corpuscular Volume 89.2 fL (80.0-100.0); Mean Platelet Volume 8.4 fL (7.0-11.0); Mono # (Auto) 0.3 th/mm3 (0.0-0.9); Mono % (Auto) 3.9 % (0.0-8.0); Neut # (Auto) 7.1 th/mm3 (1.8-7.7); Neut % (Auto) 89.4 % (16.0-70.0); Platelet Count 259 th/mm3 (150-450); Red Blood Count 2.55 mil/mm3 (4.00-5.30); Red Cell Distribution Width 16.4 % (11.6-17.2); White Blood Count 7.9 th/mm3 (4.0-11.0)
[2018-06-16 07:52] LABS: Albumin 3.7 g/dL (3.4-5.0); Anion Gap 9 meq/L (5-15); Aspartate Aminotransferase 8 U/L (15-37); Blood Urea Nitrogen 49 mg/dL (7-18); Calcium 8.7 mg/dL (8.5-10.1); Carbon Dioxide 24.8 meq/L (21.0-32.0); Chloride 113 meq/L (98-107); Glomerular Filtration Rate 18 mL/min (>89); Glucose,Random 198 mg/dL (74-106); Magnesium 2.9 mg/dL (1.5-2.5); Potassium 3.9 meq/L (3.5-5.1); Sodium 147 meq/L (136-145)
[2018-06-16 07:59] LABS: Alanine Aminotransferase 17 U/L (10-53); Alkaline Phosphatase 103 U/L (45-117); Phosphorus 3.3 mg/dL (2.5-4.9); Total Protein 6.2 g/dL (6.4-8.2)
[2018-06-16] MEDS: guaiFENesin 600 MG ER Tablet PO SCH ×2 (08:32→20:34)
[2018-06-16] MEDS: Furosemide 40 MG Tablet PO SCH (08:32)
[2018-06-16] MEDS: Senna/Docusate Sodium 8.6/50 MG Tablet PO SCH ×2 (08:32→20:35)
[2018-06-16] MEDS: Mupirocin 2% Nasal Oint Topical Syringe EACH NARE SCH ×2 (08:33→20:36)
[2018-06-16] MEDS: MethylPREDNISolone Sod Succinate Inj 40 MG/ML Vial IV.PUSH SCH (08:33)
[2018-06-16] MEDS: Polyvinyl Alcohol/Povidone PF Opth Drops 0.4 ML Dropperette EACH EYE SCH ×2 (08:33→20:37)
[2018-06-16] MEDS: Lactic Acid (Ammonium Lactate) 12% Lotion 225 GM Bottle TOPICAL SCH (08:33)
[2018-06-16] MEDS: Carvedilol 12.5 MG Tablet PO SCH ×2 (08:36→20:34)
[2018-06-16] MEDS: Budesonide-Formoterol 160/4.5 MCG 6 GM Inhaler INH SCH ×2 (08:37→20:37)
--- NOTE | 2018-06-16 12:24 | P.PNIM ---
Subjective Interval history: 06-14 PATIENT STILL WHEEZING, COMPLAINS OF PAIN ALL OVER EVEN THOUGH JUST HAD 4MG IV MORPHINE FOLLOW UP GI bleed, acute kidney injury, COPD with acute on chronic respiratory failure, Has chronic pain in her legs positive wheezing We will add Mucinex Incentive spirometry Increase steroids Symbicort if she is not on 06-15 BREATHING A LITTLE BETTER CAN BE MOVED OUT OF ICU DW RN AND PT DOES NOT NEED TO BE IN ICU 06-16 SEEN ON FLOOR MOVED OUT OF ICU BREATHING BETTER AM LABS DW RN AND PT INCREASE ACTIVITY TRANSFUSE NEEDED Physical Exam Vital signs: Vital Signs 06/15/18 14:00 06/15/18 15:52 06/15/18 17:19 Temperature Pulse Rate 67 75 77 Respiratory Rate 16 Blood Pressure Pulse Oximetry 06/15/18 19:47 06/15/18 20:00 06/15/18 23:10 Temperature 97.4 F L Pulse Rate 77 69 77 Respiratory Rate 18 18 18 Blood Pressure 133/86 Pulse Oximetry 92 L 93 L 92 L 06/15/18 23:45 06/16/18 00:00 06/16/18 03:24 Temperature Pulse Rate 66 64 Respiratory Rate 18 15 Blood Pressure Pulse Oximetry 92 L 06/16/18 04:00 06/16/18 07:42 06/16/18 08:00 Temperature 97.9 F 98.4 F Pulse Rate 63 70 74 Respiratory Rate 12 20 18 Blood Pressure 140/65 152/75 H Pulse Oximetry 94 L 93 L 93 L 06/16/18 11:50 Temperature Pulse Rate 72 Respiratory Rate 20 Blood Pressure Pulse Oximetry Intake & Output 06/15/18 06/16/18 06/16/18 18:59 06:59 18:59 Intake Total 250 / 250 200 / 200 Output Total 250 / 250 Balance 250 / 250 -50 / -50 Weight 97.3 kg Intake: IV 250 / 250 200 / 200 Flexbumin 25% Inj 100 ML @ 60 100 / 100 100 / 100 mls/hr IV.SIG Q12H ANNE Rx#: [id number] Maxipime Inj 1,000 MG In NS Inj 100 / 100 100 / 100 100 ML @ 200 mls/hr IV.SIG Q12H ANNE Rx#:[id number] Diamox Inj 250 MG In NS Inj 50 50 / 50 ML @ 100 mls/hr IV.SIG Q12HR ANNE Rx#:[id number] Output: Urine 250 / 250 Other: Date of Last Bowel Movement 06/13/18 Narrative: GENERAL: Chronically ill-appearing elderly female in NAD.Confused. SKIN: Warm and dry. Pale. Ecchymoses over UE. HEENT: Pupils equal and round. Pale conjunctiva. Throat clear. NECK: Supple no tender LAD or JVD. HEART: RRR no m/r/g. LUNGS: Decreased breath sounds bilaterally with expiratory wheezing. and basal crackles . ABDOMEN: +BS, soft, nondistended. Obese and No organomegaly. EXTREMITIES: 1 + LE edema. Diminished pedal pulses. NEURO: Awake and alert.No gross deficits. - Urinary Catheter Management Indwelling Urethral Catheter Cath placed during this visit: yes, but has since been removed by the nurse Reason for continuing: Continue criteria not met Insertion date: 06/08/18 Insertion time: 16:15 Removal date: 06/15/18 Removal time: 12:00 Results - Labs CBC & Chem 7: 06/16/18 06:45 06/16/18 06:45 Laboratory Results - last 24 hr 06/15/18 06/15/18 06/15/18 03:26 13:20 16:28 WBC RBC Hgb Hct MCV MCH MCHC RDW Plt Count MPV Neut % (Auto) Lymph % (Auto) Walsh % (Auto) Eos % (Auto) Baso % (Auto) Neut # (Auto) Lymph # (Auto) Walsh # (Auto) Eos # (Auto) Baso # (Auto) WBC Differential Differential Comment Sodium Potassium Chloride Carbon Dioxide Anion Gap BUN Creatinine Estimated GFR POC Glucose 243 H 225 H Random Glucose Hemoglobin A1c 6.6 H Calcium Phosphorus Magnesium Total Bilirubin AST ALT Alkaline Phosphatase Total Protein Albumin 06/15/18 06/16/18 06/16/18 22:18 00:32 06:45 WBC 7.9 RBC 2.55 L Hgb 7.6 L Hct 22.7 L MCV 89.2 MCH 30.0 MCHC 33.6 RDW 16.4 Plt Count 259 MPV 8.4 Neut % (Auto) 89.4 H Lymph % (Auto) 6.6 L Walsh % (Auto) 3.9 Eos % (Auto) 0.0 Baso % (Auto) 0.1 Neut # (Auto) 7.1 Lymph # (Auto) 0.5 L Walsh # (Auto) 0.3 Eos # (Auto) 0.0 Baso # (Auto) 0.0 WBC Differential . Differential Comment Auto diff final Sodium Potassium Chloride Carbon Dioxide Anion Gap BUN Creatinine Estimated GFR POC Glucose 236 H 243 H Random Glucose Hemoglobin A1c Calcium Phosphorus Magnesium Total Bilirubin AST ALT Alkaline Phosphatase Total Protein Albumin 06/16/18 06:45 WBC RBC Hgb Hct MCV MCH MCHC RDW Plt Count MPV Neut % (Auto) Lymph % (Auto) Walsh % (Auto) Eos % (Auto) Baso % (Auto) Neut # (Auto) Lymph # (Auto) Walsh # (Auto) Eos # (Auto) Baso # (Auto) WBC Differential Differential Comment Sodium 147 H Potassium 3.9 Chloride 113 H Carbon Dioxide 24.8 Anion Gap 9 BUN 49 H Creatinine 2.64 H Estimated GFR 18 L POC Glucose Random Glucose 198 H Hemoglobin A1c Calcium 8.7 Phosphorus 3.3 Magnesium 2.9 H Total Bilirubin 0.4 AST 8 L ALT 17 Alkaline Phosphatase 103 Total Protein 6.2 L Albumin 3.7 D - Procedures central line placement. Assessment and Plan - Assessment (1) STEPHIE (acute kidney injury) Code(s): N17.9 - Acute kidney failure, unspecified Status: Acute (2) GI hemorrhage Code(s): K92.2 - Gastrointestinal hemorrhage, unspecified Status: Resolved (3) Anemia Code(s): D64.9 - Anemia, unspecified Status: Acute (4) Respiratory failure Code(s): J96.90 - Respiratory failure, unspecified, unspecified whether with hypoxia or hypercapnia Status: Acute - Plan 68 year old female with history of COPD, HTN, HLD, and PE anticoagulated on Xarelto admitted from [facility] on 05/20 for hemorrhagic shock secondary to GI bleeding. 06/13: Still with some SOB but distress seems to be improved compared to yesterday. Schedule DuoNebs. Increase gabapentin due to chronic, diffuse pain. Check Doppler U/S of B/L LE given significant calf tenderness. Will change Protonix to PO and continue to monitor. 06-14 ultrasounds of bilateral lower extremity are negative for DVTs AM LABS DW RN AND PT DC ULTRAM PO PERCOCETS FOR PAIN 10-15 PAIN APPEARS BETTER CONTROLLED MOVE OUT OF ICU 1. STEPHIE - Creatinine and GFR essentially same today: 2.73 from 2.76 - UOP appears to be decreasing per EMR - Likely secondary to hypoperfusion from sepsis and possible medication related - Renal U/S normal - Nephrology following, recommending Diamox 250 mg IV BID - Albumin infusion per nephro - Renally dose meds and avoid nephrotoxic agents - Continue to closely monitor renal function DEFER TO RENAL 2. Acute on chronic respiratory failure, COPD - s/p intubation 05/20-05/21 - Acutely worsened on 06/12. ABG with normal pH, mildly elevated PCO2 and bicarb - Pulm following, added Solumedrol 40 mg IV BID and Cefepime - CXR 06/12 showed unchanged bibasilar infiltrates and small effusions - Change DuoNeb to Q4H SCHEDULED - Albuterol nebs PRN - BiPAP PRN - Titrate supplemental O2 - Continue Symbicort Add Mucinex Increase steroids 40MG SUBQ TID DW PULMONARY 3. GI bleed, resolved - H&H stable - Hemodynamically stable - Continue to hold anticoagulation - Change Protonix to PO - GI consulted earlier in course, s/p EGD/colonoscopy showing severe erythematous gastritis in the antrum and body and severe diverticulosis throughout the entire examined colon as well as large sized circumferential colitis in the sigmoid colon c/w ischemic colitis. Recommended repeat colonoscopy 1-2 months 4. Ischemic colitis, abdominal pain - Circumferential sigmoid colitis c/w ischemic colitis seen on colonoscopy - CTA abdomen demonstrated atherosclerosis with no major occlusions - General surgery consulted earlier in course, recommended medical management and resuscitation as needed for GI hemorrhage - OAC on hold secondary to hemorrhagic shock - Morphine PRN 5. Lisbeth UTI - Continue renally dosed Diflucan - Nystatin powder for inguinal mycosis ADD DIFLUCAN 6. Peripheral neuropathy, chronic pain - Increase gabapentin to 200 mg Q8H - Continue Trazodone and tramadol PRN 7. HTN - Stable, continue amlodipine and Coreg 8. HLD - Continue statin 9. Physical deconditioning - Continue PT Acute on chronic pain will make sure she has extra morphine available DVT prophylaxis: SCDs, chemical anticoagulation C/I given GI bleed DW RN AND PT PT AND OT Code Status: FULL CODE Discussed Condition With: RN AND PT AND CM Discharge Planning: PENDING IMPROVEMENT AND CLEARANCE BY PULMONARY AND RENAL MAY NEED A TRANFUSION (3) Anemia Qualifiers: Other causes of anemia: acute posthemorrhagic (4) Respiratory failure Qualifiers: Chronicity: acute on chronic
--- NOTE | 2018-06-16 14:56 | P.PNNP ---
Subjective Interval history: Patient moved out of ICU Physical Exam Vital signs: Vital Signs 06/15/18 15:52 06/15/18 17:19 06/15/18 19:47 Temperature Pulse Rate 75 77 77 Respiratory Rate 16 18 Blood Pressure Pulse Oximetry 92 L 06/15/18 20:00 06/15/18 23:10 06/15/18 23:45 Temperature 97.4 F L Pulse Rate 69 77 Respiratory Rate 18 18 Blood Pressure 133/86 Pulse Oximetry 93 L 92 L 92 L 06/16/18 00:00 06/16/18 03:24 06/16/18 04:00 Temperature 97.9 F Pulse Rate 66 64 63 Respiratory Rate 18 15 12 Blood Pressure 140/65 Pulse Oximetry 94 L 06/16/18 07:42 06/16/18 08:00 06/16/18 11:50 Temperature 98.4 F Pulse Rate 70 74 72 Respiratory Rate 20 18 20 Blood Pressure 152/75 H Pulse Oximetry 93 L 93 L 06/16/18 12:00 06/16/18 13:35 Temperature 96.3 F L Pulse Rate 77 93 H Respiratory Rate 18 22 Blood Pressure 163/72 H Pulse Oximetry 92 L Intake & Output 06/15/18 06/16/18 06/16/18 18:59 06:59 18:59 Intake Total 250 / 250 200 / 200 Output Total 250 / 250 Balance 250 / 250 -50 / -50 Weight 97.3 kg Intake: IV 250 / 250 200 / 200 Flexbumin 25% Inj 100 ML @ 60 100 / 100 100 / 100 mls/hr IV.SIG Q12H ANNE Rx#: [id number] Maxipime Inj 1,000 MG In NS Inj 100 / 100 100 / 100 100 ML @ 200 mls/hr IV.SIG Q12H ANNE Rx#:[id number] Diamox Inj 250 MG In NS Inj 50 50 / 50 ML @ 100 mls/hr IV.SIG Q12HR ANNE Rx#:[id number] Output: Urine 250 / 250 Other: Date of Last Bowel Movement 06/13/18 Narrative: GENERAL: Chronically ill-appearing elderly female in NAD.Confused. SKIN: Warm and dry. Pale. Ecchymoses over UE. HEENT: Pupils equal and round. Pale conjunctiva. Throat clear. NECK: Supple no tender LAD or JVD. HEART: RRR no m/r/g. LUNGS: Decreased breath sounds bilaterally with expiratory wheezing. and basal crackles . ABDOMEN: +BS, soft, nondistended. Obese and No organomegaly. EXTREMITIES: 1 + LE edema. Diminished pedal pulses. NEURO: Awake and alert.No gross deficits. - Urinary Catheter Management Indwelling Urethral Catheter Cath placed during this visit: yes, but has since been removed by the nurse Reason for continuing: Continue criteria not met Insertion date: 06/08/18 Insertion time: 16:15 Removal date: 06/15/18 Removal time: 12:00 Assessment and Plan - Assessment (1) STEPHIE (acute kidney injury) Code(s): N17.9 - Acute kidney failure, unspecified Status: Acute (2) GI bleed requiring more than 4 units of blood in 24 hours, ICU, or surgery Code(s): K92.2 - Gastrointestinal hemorrhage, unspecified Status: Acute (3) Anemia Code(s): D64.9 - Anemia, unspecified Status: Acute Qualifiers: Other causes of anemia: acute posthemorrhagic (4) Shock Code(s): R57.9 - Shock, unspecified Status: Acute (5) Sepsis Code(s): A41.9 - Sepsis, unspecified organism Status: Acute - Plan Patient is in ARF She is getting Diflucan for yeast infection Acute renal failure appears to be due to hypoperfusion of the kidney as a result of sepsis Creatinine remain stable at 2.6. On Lasix Follow BMP and the urine out put. UOP 600 , king out Monitor
--- NOTE | 2018-06-16 19:04 | P.PN ---
Subjective Interval history: Doing well and is breathing easier. No chest pains.Able to take her diet well. Hgb is stable. Physical Exam Vital signs: Vital Signs 06/15/18 19:47 06/15/18 20:00 06/15/18 23:10 Temperature 97.4 F L Pulse Rate 77 69 77 Respiratory Rate 18 18 18 Blood Pressure 133/86 Pulse Oximetry 92 L 93 L 92 L 06/15/18 23:45 06/16/18 00:00 06/16/18 03:24 Temperature Pulse Rate 66 64 Respiratory Rate 18 15 Blood Pressure Pulse Oximetry 92 L 06/16/18 04:00 06/16/18 07:42 06/16/18 08:00 Temperature 97.9 F 98.4 F Pulse Rate 63 70 74 Respiratory Rate 12 20 18 Blood Pressure 140/65 152/75 H Pulse Oximetry 94 L 93 L 93 L 06/16/18 11:50 06/16/18 12:00 06/16/18 13:35 Temperature 96.3 F L Pulse Rate 72 77 93 H Respiratory Rate 20 18 22 Blood Pressure 163/72 H Pulse Oximetry 92 L 06/16/18 15:11 06/16/18 16:00 Temperature 98.1 F Pulse Rate 78 75 Respiratory Rate 18 18 Blood Pressure 154/68 H Pulse Oximetry 94 L Intake & Output 06/16/18 06/16/18 06/17/18 06:59 18:59 06:59 Intake Total 200 / 200 838 / 838 Output Total 250 / 250 300 / 300 Balance -50 / -50 538 / 538 Weight 97.3 kg Intake: IV 200 / 200 Flexbumin 25% Inj 100 ML @ 60 100 / 100 mls/hr IV.SIG Q12H ANNE Rx#: [id number] Maxipime Inj 1,000 MG In NS Inj 100 / 100 100 ML @ 200 mls/hr IV.SIG Q12H ANNE Rx#:[id number] Oral 838 / 838 Output: Urine 250 / 250 300 / 300 Other: # Voids 1 # Bowel Movements 1 Narrative: GENERAL: Chronically ill-appearing elderly female in NAD.Confused. SKIN: Warm and dry. Pale. HEENT: Pupils equal and round. Pale conjunctiva. Throat clear. NECK: Supple no tender LAD or JVD. HEART: RRR no m/r/g. LUNGS: Decreased breath sounds bilaterally with expiratory wheezing. and Occ basal crackles . ABDOMEN: +BS, soft, nondistended. Obese and No organomegaly. EXTREMITIES: 1 + LE edema. Diminished pedal pulses. NEURO: Awake and alert.No gross deficits. - Urinary Catheter Management Indwelling Urethral Catheter Cath placed during this visit: yes, but has since been removed by the nurse Reason for continuing: Continue criteria not met Insertion date: 06/08/18 Insertion time: 16:15 Removal date: 06/15/18 Removal time: 12:00 Results - Labs CBC & Chem 7: 06/16/18 06:45 06/16/18 06:45 Laboratory Results - last 24 hr 06/15/18 06/16/18 06/16/18 22:18 00:32 06:45 WBC 7.9 RBC 2.55 L Hgb 7.6 L Hct 22.7 L MCV 89.2 MCH 30.0 MCHC 33.6 RDW 16.4 Plt Count 259 MPV 8.4 Neut % (Auto) 89.4 H Lymph % (Auto) 6.6 L Louisa % (Auto) 3.9 Eos % (Auto) 0.0 Baso % (Auto) 0.1 Neut # (Auto) 7.1 Lymph # (Auto) 0.5 L Louisa # (Auto) 0.3 Eos # (Auto) 0.0 Baso # (Auto) 0.0 WBC Differential . Differential Comment Auto diff final Sodium Potassium Chloride Carbon Dioxide Anion Gap BUN Creatinine Estimated GFR POC Glucose 236 H 243 H Random Glucose Calcium Phosphorus Magnesium Total Bilirubin AST ALT Alkaline Phosphatase Total Protein Albumin 06/16/18 06/16/18 06/16/18 06:45 13:02 16:36 WBC RBC Hgb Hct MCV MCH MCHC RDW Plt Count MPV Neut % (Auto) Lymph % (Auto) Louisa % (Auto) Eos % (Auto) Baso % (Auto) Neut # (Auto) Lymph # (Auto) Louisa # (Auto) Eos # (Auto) Baso # (Auto) WBC Differential Differential Comment Sodium 147 H Potassium 3.9 Chloride 113 H Carbon Dioxide 24.8 Anion Gap 9 BUN 49 H Creatinine 2.64 H Estimated GFR 18 L POC Glucose 272 H 291 H Random Glucose 198 H Calcium 8.7 Phosphorus 3.3 Magnesium 2.9 H Total Bilirubin 0.4 AST 8 L ALT 17 Alkaline Phosphatase 103 Total Protein 6.2 L Albumin 3.7 D - Procedures central line placement. Assessment and Plan - Assessment (1) GI bleed requiring more than 4 units of blood in 24 hours, ICU, or surgery Code(s): K92.2 - Gastrointestinal hemorrhage, unspecified Status: Acute (2) Anemia Code(s): D64.9 - Anemia, unspecified Status: Acute (3) Shock Code(s): R57.9 - Shock, unspecified Status: Acute (4) COPD (chronic obstructive pulmonary disease) Code(s): J44.9 - Chronic obstructive pulmonary disease, unspecified Status: Chronic (5) Major depression, recurrent Code(s): F33.9 - Major depressive disorder, recurrent, unspecified Status: Acute (6) Sepsis Code(s): A41.9 - Sepsis, unspecified organism Status: Acute (7) Atelectasis Code(s): J98.11 - Atelectasis Status: Acute (8) Respiratory failure Code(s): J96.90 - Respiratory failure, unspecified, unspecified whether with hypoxia or hypercapnia Status: Acute (9) Aspiration pneumonia Code(s): J69.0 - Pneumonitis due to inhalation of food and vomit Status: Acute (10) Mixed personality disorder Code(s): F60.89 - Other specific personality disorders Status: Suspected - Plan 1. Cont on 3 L O2. 2. D/C Solumedrol 3. Duonebs qid and Q4H PRN 4. Cont antibiotics till am. 5. PT to help activity. 6. Add prednisone 10 mg BID X 5 days 7. Symbicort 160/4.5 mcg , 2puffs BID 8. Transfer to Rehab. (2) Anemia Qualifiers: Other causes of anemia: acute posthemorrhagic (4) COPD (chronic obstructive pulmonary disease) Qualifiers: COPD type: unspecified COPD Qualified Code(s): J44.9 - Chronic obstructive pulmonary disease, unspecified (8) Respiratory failure Qualifiers: Chronicity: acute on chronic
[2018-06-16] MEDS: oxyCODONE/Acetaminophen 10/325 Tablet PO PRN (20:34)
[2018-06-16] MEDS: predniSONE 10 MG Tablet PO SCH (20:35)
[2018-06-16] MEDS: Insulin Detemir Inj 1,000 UNIT/10 ML Vial SQ SCH (20:36)
[2018-06-16] MEDS: traZODone 50 MG Tablet PO SCH (20:40)
[2018-06-17] MEDS: Insulin NovoLOG Aspart Correctional Sugar Inj SQ SCH ×6 (01:06→21:29)
[2018-06-17] MEDS: Gabapentin 100 MG Capsule PO SCH ×3 (02:11→17:20)
[2018-06-17] MEDS: Albumin Human 25% Inj 100 ML IV.SIG SCH ×2 (04:31→17:13)
[2018-06-17 08:20] LABS: Hemoglobin 7.9 gm/dL (11.6-15.3); Lymph # (Auto) 0.7 th/mm3 (1.0-4.8); Lymph % (Auto) 9.9 % (9.0-44.0); Mean Corpuscular HGB Conc 31.8 % (32.0-36.0); Mean Corpuscular Hemoglobin 28.9 pg (27.0-34.0); Mean Platelet Volume 8.7 fL (7.0-11.0); Mono # (Auto) 0.6 th/mm3 (0.0-0.9); Mono % (Auto) 7.8 % (0.0-8.0); Neut # (Auto) 6.1 th/mm3 (1.8-7.7); Neut % (Auto) 82.3 % (16.0-70.0); Platelet Count 279 th/mm3 (150-450); Red Blood Count 2.74 mil/mm3 (4.00-5.30); Red Cell Distribution Width 16.8 % (11.6-17.2); White Blood Count 7.4 th/mm3 (4.0-11.0)
[2018-06-17] MEDS: Mupirocin 2% Nasal Oint Topical Syringe EACH NARE SCH ×2 (09:00→21:28)
[2018-06-17 09:04] LABS: Alanine Aminotransferase 20 U/L (10-53); Alkaline Phosphatase 98 U/L (45-117); Anion Gap 8 meq/L (5-15); Aspartate Aminotransferase 8 U/L (15-37); Blood Urea Nitrogen 63 mg/dL (7-18); Calcium 8.7 mg/dL (8.5-10.1); Carbon Dioxide 24.7 meq/L (21.0-32.0); Chloride 114 meq/L (98-107); Glomerular Filtration Rate 17 mL/min (>89); Glucose,Random 218 mg/dL (74-106); Lymphocytes 18 % (9-44); Magnesium 2.9 mg/dL (1.5-2.5); Metamyelocytes 1 % (0-1); Monocytes 4 % (0-8); Myelocytes 2 % (0-0); Phosphorus 3.3 mg/dL (2.5-4.9); Potassium 4.1 meq/L (3.5-5.1); Sodium 147 meq/L (136-145); Tallied Nucleated RBC 1 (0-0); Total Protein 6.5 g/dL (6.4-8.2)
[2018-06-17 09:05] LABS: Platelet Estimate Normal (Normal); Platelet Morphology Normal (Normal)
[2018-06-17 09:06] LABS: Burr Cells 1+; Ovalocytes 1+
[2018-06-17] MEDS: guaiFENesin 600 MG ER Tablet PO SCH ×2 (09:08→21:29)
[2018-06-17] MEDS: Carvedilol 12.5 MG Tablet PO SCH ×2 (09:08→21:28)
[2018-06-17] MEDS: oxyCODONE/Acetaminophen 10/325 Tablet PO PRN (09:08)
[2018-06-17] MEDS: Senna/Docusate Sodium 8.6/50 MG Tablet PO SCH ×2 (09:08→21:29)
[2018-06-17] MEDS: predniSONE 10 MG Tablet PO SCH ×2 (09:08→21:28)
[2018-06-17] MEDS: Lactic Acid (Ammonium Lactate) 12% Lotion 225 GM Bottle TOPICAL SCH (09:09)
[2018-06-17] MEDS: Furosemide 40 MG Tablet PO SCH (09:09)
[2018-06-17] MEDS: Budesonide-Formoterol 160/4.5 MCG 6 GM Inhaler INH SCH ×2 (09:10→21:29)
[2018-06-17] MEDS: Polyvinyl Alcohol/Povidone PF Opth Drops 0.4 ML Dropperette EACH EYE SCH ×2 (09:10→21:29)
--- NOTE | 2018-06-17 09:19 | XR ---
EXAM DATE: 06/17/2018 12:00 AM EDT AGE/SEX: 68 years / Female INDICATIONS: Edema. Shortness of breath. CLINICAL DATA: This is the patient's subsequent encounter. Patient reports that signs and symptoms h ave been present for 1 week and indicates a pain score of 0/10. MEDICAL/SURGICAL HISTORY: . Chronic obstructive pulmonary disease. Hypertension. Pulmonary emb joanie. Cholecystectomy. [place] [facility] [place]. . FINDINGS: Heart is enlarged. Moderate bibasilar parenchymal changes present. Minimal interstitial edema. Trace pleural effusion on the right. The portion of the bony skeleton visualized is unremarkable. CONCLUSION: Cardiomegaly with probable moderate congestive failure. There is some improvement from comparison. Electronically signed by: Anant Urbina MD 06/17/2018 9:18 AM EDT
--- NOTE | 2018-06-17 10:28 | P.PNIM ---
Subjective Interval history: Follow up. Patient sitting in bed eating breakfast. No new complaints. Discussed with RN, no new issues. She denies any chest pain, sob, or abdominal pain. Physical Exam Vital signs: Vital Signs 06/16/18 11:50 06/16/18 12:00 06/16/18 13:35 Temperature 96.3 F L Pulse Rate 72 77 93 H Respiratory Rate 20 18 22 Blood Pressure 163/72 H Pulse Oximetry 92 L 06/16/18 15:11 06/16/18 16:00 06/16/18 19:00 Temperature 98.1 F Pulse Rate 78 75 88 Respiratory Rate 18 18 22 Blood Pressure 154/68 H Pulse Oximetry 94 L 94 L 06/16/18 20:00 06/16/18 21:28 06/17/18 00:00 Temperature 97.7 F 97.8 F Pulse Rate 71 58 L Respiratory Rate 20 20 Blood Pressure 135/80 151/69 H Pulse Oximetry 95 95 96 06/17/18 00:34 06/17/18 00:36 06/17/18 04:00 Temperature 97.8 F Pulse Rate 60 56 L Respiratory Rate 10 L 18 Blood Pressure 164/78 H Pulse Oximetry 93 L 94 L 06/17/18 05:12 06/17/18 07:28 06/17/18 08:00 Temperature 97.5 F L Pulse Rate 62 68 63 Respiratory Rate 12 18 20 Blood Pressure 179/77 H Pulse Oximetry 96 95 Intake & Output 06/16/18 06/17/18 06/17/18 18:59 06:59 18:59 Intake Total 938 / 938 200 / 200 Output Total 300 / 300 1100 / 1100 Balance 638 / 638 -900 / -900 Weight 96.6 kg Intake: IV 100 / 100 200 / 200 Flexbumin 25% Inj 100 ML @ 60 100 / 100 mls/hr IV.SIG Q12H ANNE Rx#: [id number] Maxipime Inj 1,000 MG In NS Inj 100 / 100 100 / 100 100 ML @ 200 mls/hr IV.SIG Q12H ANNE Rx#:[id number] Oral 838 / 838 0 / 0 Output: Urine 300 / 300 1100 / 1100 Other: # Voids 1 Date of Last Bowel Movement 06/13/18 # Bowel Movements 1 0 Narrative: GENERAL: Chronically ill-appearing elderly female in NAD.Confused. SKIN: Warm and dry. Pale. HEENT: Pupils equal and round. Pale conjunctiva. Throat clear. NECK: Supple no tender LAD or JVD. HEART: RRR no m/r/g. LUNGS: Decreased breath sounds bilaterally with expiratory wheezing. and Occ basal crackles . ABDOMEN: +BS, soft, nondistended. Obese and No organomegaly. EXTREMITIES: 1 + LE edema. Diminished pedal pulses. NEURO: Awake and alert.No gross deficits. - Urinary Catheter Management Indwelling Urethral Catheter Cath placed during this visit: yes, but has since been removed by the nurse Reason for continuing: Continue criteria not met Insertion date: 06/08/18 Insertion time: 16:15 Removal date: 06/15/18 Removal time: 12:00 Results - Labs CBC & Chem 7: 06/17/18 07:42 06/17/18 07:42 Laboratory Results - last 24 hr 06/16/18 06/16/18 06/17/18 13:02 16:36 07:42 WBC 7.4 RBC 2.74 L Hgb 7.9 L Hct 25.0 L MCV 91.0 MCH 28.9 MCHC 31.8 L RDW 16.8 Plt Count 279 MPV 8.7 Prelim Diff (Auto) Slide review pending Neut % (Auto) 82.3 H Lymph % (Auto) 9.9 [place] % (Auto) 7.8 Eos % (Auto) 0.0 Baso % (Auto) 0.0 Neut # (Auto) 6.1 Lymph # (Auto) 0.7 L [place] # (Auto) 0.6 Eos # (Auto) 0.0 Baso # (Auto) 0.0 WBC Differential Manual diff final Seg Neuts % (Manual) 70 Band Neuts % (Manual) 5 Lymphocytes % (Manual) 18 Monocytes % (Manual) 4 Metamyelocytes % (Man) 1 Myelocytes % (Man) 2 H Abs Neuts (Manual) 5.8 Nucleated RBCs/100 WBC 1 H Differential Comment . Platelet Estimate Normal Platelet Morphology Normal Ovalocytes 1+ H [place] Cells 1+ H Sodium Potassium Chloride Carbon Dioxide Anion Gap BUN Creatinine Estimated GFR POC Glucose 272 H 291 H Random Glucose Calcium Phosphorus Magnesium Total Bilirubin AST ALT Alkaline Phosphatase Total Protein Albumin 06/17/18 06/17/18 07:42 08:13 WBC RBC Hgb Hct MCV MCH MCHC RDW Plt Count MPV Prelim Diff (Auto) Neut % (Auto) Lymph % (Auto) [place] % (Auto) Eos % (Auto) Baso % (Auto) Neut # (Auto) Lymph # (Auto) [place] # (Auto) Eos # (Auto) Baso # (Auto) WBC Differential Seg Neuts % (Manual) Band Neuts % (Manual) Lymphocytes % (Manual) Monocytes % (Manual) Metamyelocytes % (Man) Myelocytes % (Man) Abs Neuts (Manual) Nucleated RBCs/100 WBC Differential Comment Platelet Estimate Platelet Morphology Ovalocytes [place] Cells Sodium 147 H Potassium 4.1 Chloride 114 H Carbon Dioxide 24.7 Anion Gap 8 BUN 63 H Creatinine 2.71 H Estimated GFR 17 L POC Glucose 226 H Random Glucose 218 H Calcium 8.7 Phosphorus 3.3 Magnesium 2.9 H Total Bilirubin 0.4 AST 8 L ALT 20 Alkaline Phosphatase 98 Total Protein 6.5 Albumin 4.0 - Imaging Impressions Chest X-Ray 06/17/18 00:00 CONCLUSION: Cardiomegaly with probable moderate congestive failure. There is some improvement from comparison. - Procedures central line placement. Assessment and Plan - Assessment (1) STEPHIE (acute kidney injury) Code(s): N17.9 - Acute kidney failure, unspecified Status: Acute (2) GI hemorrhage Code(s): K92.2 - Gastrointestinal hemorrhage, unspecified Status: Resolved (3) Anemia Code(s): D64.9 - Anemia, unspecified Status: Acute (4) Respiratory failure Code(s): J96.90 - Respiratory failure, unspecified, unspecified whether with hypoxia or hypercapnia Status: Acute - Plan 68 year old female with history of COPD, HTN, HLD, and PE anticoagulated on Xarelto admitted from [facility] on 05/20 for hemorrhagic shock secondary to GI bleeding. STEPHIE - Creatinine and GFR essentially same today: 2.71 from 2.76 - Likely secondary to hypoperfusion from sepsis and possible medication related - Renal U/S normal - Nephrology following, recommending Diamox 250 mg IV BID - Albumin infusion per nephro - Renally dose meds and avoid nephrotoxic agents - Continue to closely monitor renal function Acute on chronic respiratory failure, COPD -s/p intubation 05/20-05/21 -Acutely worsened on 06/12. ABG with normal pH, mildly elevated PCO2 and bicarb -Pulm following, treated with solumedrol, changed to prednisone 10 mg BID for 5 days -CXR 06/12 showed unchanged bibasilar infiltrates and small effusions -Change DuoNeb to Q4H SCHEDULED -BiPAP PRN -Titrate supplemental O2 -Continue Symbicort -Add Mucinex -Increase steroids 40MG SUBQ TID -PULMONARY following GI bleed, resolved -H&H stable -Hemodynamically stable -Continue to hold anticoagulation -Change Protonix to PO -GI consulted earlier in course, s/p EGD/colonoscopy showing severe erythematous gastritis in the antrum and body and severe diverticulosis throughout the entire examined colon as well as large sized circumferential colitis in the sigmoid colon c/w ischemic colitis. Recommended repeat colonoscopy 1-2 months Ischemic colitis, abdominal pain -Circumferential sigmoid colitis c/w ischemic colitis seen on colonoscopy -CTA abdomen demonstrated atherosclerosis with no major occlusions -General surgery consulted earlier in course, recommended medical management and resuscitation as needed for GI hemorrhage -OAC on hold secondary to hemorrhagic shock -Morphine PRN Lisbeth UTI -Continue renally dosed Diflucan -Nystatin powder for inguinal mycosis -Cont DIFLUCAN Peripheral neuropathy, chronic pain -Increase gabapentin to 200 mg Q8H -Continue Trazodone and tramadol PRN HTN -Stable, continue amlodipine and Coreg HLD -Continue statin Physical deconditioning -Continue PT -Patient will need a SNF Acute on chronic pain will make sure she has extra morphine available DVT prophylaxis: SCDs, chemical anticoagulation C/I given GI bleed Discussed Condition With: Patient will need snf placement once cleared by pulm and nephrology (3) Anemia Qualifiers: Other causes of anemia: acute posthemorrhagic (4) Respiratory failure Qualifiers: Chronicity: acute on chronic
--- NOTE | 2018-06-17 18:28 | P.PN ---
Subjective Interval history: Stable and alert and on O2 2L. Good Output and CXR still shows edema. Overall better Physical Exam Vital signs: Vital Signs 06/16/18 19:00 06/16/18 20:00 06/16/18 21:28 Temperature 97.7 F Pulse Rate 88 71 Respiratory Rate 22 20 Blood Pressure 135/80 Pulse Oximetry 94 L 95 95 06/17/18 00:00 06/17/18 00:34 06/17/18 00:36 Temperature 97.8 F Pulse Rate 58 L 60 Respiratory Rate 20 10 L Blood Pressure 151/69 H Pulse Oximetry 96 93 L 06/17/18 04:00 06/17/18 05:12 06/17/18 07:28 Temperature 97.8 F Pulse Rate 56 L 62 68 Respiratory Rate 18 12 18 Blood Pressure 164/78 H Pulse Oximetry 94 L 96 06/17/18 08:00 06/17/18 11:12 06/17/18 12:00 Temperature 97.5 F L 97.8 F Pulse Rate 63 58 L 61 Respiratory Rate 20 18 20 Blood Pressure 179/77 H 142/75 H Pulse Oximetry 95 95 06/17/18 16:00 Temperature 97.6 F Pulse Rate 70 Respiratory Rate 18 Blood Pressure 140/72 Pulse Oximetry 96 Intake & Output 06/16/18 06/17/18 06/17/18 18:59 06:59 18:59 Intake Total 938 / 938 200 / 200 200 / 200 Output Total 300 / 300 1100 / 1100 Balance 638 / 638 -900 / -900 200 / 200 Weight 96.6 kg Intake: IV 100 / 100 200 / 200 200 / 200 Flexbumin 25% Inj 100 ML @ 60 100 / 100 100 / 100 mls/hr IV.SIG Q12H ANNE Rx#: [id number] Maxipime Inj 1,000 MG In NS Inj 100 / 100 100 / 100 100 / 100 100 ML @ 200 mls/hr IV.SIG Q12H ANNE Rx#:[id number] Oral 838 / 838 0 / 0 Output: Urine 300 / 300 1100 / 1100 Other: # Voids 1 Date of Last Bowel Movement 06/13/18 # Bowel Movements 1 0 Narrative: GENERAL: Chronically ill-appearing elderly female in NAD.Confused. SKIN: Warm and dry. Pale. HEENT: Pupils equal and round. Pale conjunctiva. Throat clear. NECK: Supple no tender LAD or JVD. HEART: RRR no m/r/g. LUNGS: Decreased breath sounds bilaterally with Occ basal crackles . ABDOMEN: +BS, soft, nondistended. Obese and No organomegaly. EXTREMITIES: 1 + LE edema. Diminished pedal pulses. NEURO: Awake and alert.No gross deficits. - Urinary Catheter Management Indwelling Urethral Catheter Cath placed during this visit: yes, but has since been removed by the nurse Reason for continuing: Continue criteria not met Insertion date: 06/08/18 Insertion time: 16:15 Removal date: 06/15/18 Removal time: 12:00 Results - Labs CBC & Chem 7: 06/17/18 07:42 06/17/18 07:42 Laboratory Results - last 24 hr 06/17/18 06/17/18 06/17/18 07:42 07:42 08:13 WBC 7.4 RBC 2.74 L Hgb 7.9 L Hct 25.0 L MCV 91.0 MCH 28.9 MCHC 31.8 L RDW 16.8 Plt Count 279 MPV 8.7 Prelim Diff (Auto) Slide review pending Neut % (Auto) 82.3 H Lymph % (Auto) 9.9 [place] % (Auto) 7.8 Eos % (Auto) 0.0 Baso % (Auto) 0.0 Neut # (Auto) 6.1 Lymph # (Auto) 0.7 L [place] # (Auto) 0.6 Eos # (Auto) 0.0 Baso # (Auto) 0.0 WBC Differential Manual diff final Seg Neuts % (Manual) 70 Band Neuts % (Manual) 5 Lymphocytes % (Manual) 18 Monocytes % (Manual) 4 Metamyelocytes % (Man) 1 Myelocytes % (Man) 2 H Abs Neuts (Manual) 5.8 Nucleated RBCs/100 WBC 1 H Differential Comment . Platelet Estimate Normal Platelet Morphology Normal Ovalocytes 1+ H [place] Cells 1+ H Sodium 147 H Potassium 4.1 Chloride 114 H Carbon Dioxide 24.7 Anion Gap 8 BUN 63 H Creatinine 2.71 H Estimated GFR 17 L POC Glucose 226 H Random Glucose 218 H Calcium 8.7 Phosphorus 3.3 Magnesium 2.9 H Total Bilirubin 0.4 AST 8 L ALT 20 Alkaline Phosphatase 98 Total Protein 6.5 Albumin 4.0 06/17/18 06/17/18 12:18 17:12 WBC RBC Hgb Hct MCV MCH MCHC RDW Plt Count MPV Prelim Diff (Auto) Neut % (Auto) Lymph % (Auto) [place] % (Auto) Eos % (Auto) Baso % (Auto) Neut # (Auto) Lymph # (Auto) [place] # (Auto) Eos # (Auto) Baso # (Auto) WBC Differential Seg Neuts % (Manual) Band Neuts % (Manual) Lymphocytes % (Manual) Monocytes % (Manual) Metamyelocytes % (Man) Myelocytes % (Man) Abs Neuts (Manual) Nucleated RBCs/100 WBC Differential Comment Platelet Estimate Platelet Morphology Ovalocytes [place] Cells Sodium Potassium Chloride Carbon Dioxide Anion Gap BUN Creatinine Estimated GFR POC Glucose 212 H 225 H Random Glucose Calcium Phosphorus Magnesium Total Bilirubin AST ALT Alkaline Phosphatase Total Protein Albumin - Imaging Impressions Chest X-Ray 06/17/18 00:00 CONCLUSION: Cardiomegaly with probable moderate congestive failure. There is some improvement from comparison. - Procedures central line placement. Assessment and Plan - Assessment (1) GI bleed requiring more than 4 units of blood in 24 hours, ICU, or surgery Code(s): K92.2 - Gastrointestinal hemorrhage, unspecified Status: Acute (2) Anemia Code(s): D64.9 - Anemia, unspecified Status: Acute (3) Shock Code(s): R57.9 - Shock, unspecified Status: Acute (4) COPD (chronic obstructive pulmonary disease) Code(s): J44.9 - Chronic obstructive pulmonary disease, unspecified Status: Chronic (5) Major depression, recurrent Code(s): F33.9 - Major depressive disorder, recurrent, unspecified Status: Acute (6) Sepsis Code(s): A41.9 - Sepsis, unspecified organism Status: Acute (7) Atelectasis Code(s): J98.11 - Atelectasis Status: Acute (8) Respiratory failure Code(s): J96.90 - Respiratory failure, unspecified, unspecified whether with hypoxia or hypercapnia Status: Acute (9) Aspiration pneumonia Code(s): J69.0 - Pneumonitis due to inhalation of food and vomit Status: Acute (10) Mixed personality disorder Code(s): F60.89 - Other specific personality disorders Status: Suspected - Plan 1. Cont on 3 L O2. 2. Restrict fluid. 3. Duonebs qid and Q4H PRN 4. BMP in am 5. PT to help activity. 6. Cont prednisone 10 mg BID X 4 days 7. Symbicort 160/4.5 mcg , 2puffs BID 8. Transfer to Rehab. (2) Anemia Qualifiers: Other causes of anemia: acute posthemorrhagic (4) COPD (chronic obstructive pulmonary disease) Qualifiers: COPD type: unspecified COPD Qualified Code(s): J44.9 - Chronic obstructive pulmonary disease, unspecified (8) Respiratory failure Qualifiers: Chronicity: acute on chronic
--- NOTE | 2018-06-17 18:44 | P.PNNP ---
Subjective Interval history: feels tired Physical Exam Vital signs: Vital Signs 06/16/18 19:00 06/16/18 20:00 06/16/18 21:28 Temperature 97.7 F Pulse Rate 88 71 Respiratory Rate 22 20 Blood Pressure 135/80 Pulse Oximetry 94 L 95 95 06/17/18 00:00 06/17/18 00:34 06/17/18 00:36 Temperature 97.8 F Pulse Rate 58 L 60 Respiratory Rate 20 10 L Blood Pressure 151/69 H Pulse Oximetry 96 93 L 06/17/18 04:00 06/17/18 05:12 06/17/18 07:28 Temperature 97.8 F Pulse Rate 56 L 62 68 Respiratory Rate 18 12 18 Blood Pressure 164/78 H Pulse Oximetry 94 L 96 06/17/18 08:00 06/17/18 11:12 06/17/18 12:00 Temperature 97.5 F L 97.8 F Pulse Rate 63 58 L 61 Respiratory Rate 20 18 20 Blood Pressure 179/77 H 142/75 H Pulse Oximetry 95 95 06/17/18 16:00 Temperature 97.6 F Pulse Rate 70 Respiratory Rate 18 Blood Pressure 140/72 Pulse Oximetry 96 Intake & Output 06/16/18 06/17/18 06/17/18 18:59 06:59 18:59 Intake Total 938 / 938 200 / 200 200 / 200 Output Total 300 / 300 1100 / 1100 Balance 638 / 638 -900 / -900 200 / 200 Weight 96.6 kg Intake: IV 100 / 100 200 / 200 200 / 200 Flexbumin 25% Inj 100 ML @ 60 100 / 100 100 / 100 mls/hr IV.SIG Q12H ANNE Rx#: [id number] Maxipime Inj 1,000 MG In NS Inj 100 / 100 100 / 100 100 / 100 100 ML @ 200 mls/hr IV.SIG Q12H ANNE Rx#:[id number] Oral 838 / 838 0 / 0 Output: Urine 300 / 300 1100 / 1100 Other: # Voids 1 Date of Last Bowel Movement 06/13/18 # Bowel Movements 1 0 Narrative: GENERAL: Chronically ill-appearing elderly female in NAD.Confused. SKIN: Warm and dry. Pale. HEENT: Pupils equal and round. Pale conjunctiva. Throat clear. NECK: Supple no tender LAD or JVD. HEART: RRR no m/r/g. LUNGS: Decreased breath sounds bilaterally with Occ basal crackles . ABDOMEN: +BS, soft, nondistended. Obese and No organomegaly. EXTREMITIES: 1 + LE edema. Diminished pedal pulses. NEURO: Awake and alert.No gross deficits. - Urinary Catheter Management Indwelling Urethral Catheter Cath placed during this visit: yes, but has since been removed by the nurse Reason for continuing: Continue criteria not met Insertion date: 06/08/18 Insertion time: 16:15 Removal date: 06/15/18 Removal time: 12:00 Assessment and Plan - Assessment (1) STEPHIE (acute kidney injury) Code(s): N17.9 - Acute kidney failure, unspecified Status: Acute (2) GI bleed requiring more than 4 units of blood in 24 hours, ICU, or surgery Code(s): K92.2 - Gastrointestinal hemorrhage, unspecified Status: Acute (3) Anemia Code(s): D64.9 - Anemia, unspecified Status: Acute Qualifiers: Other causes of anemia: acute posthemorrhagic (4) Shock Code(s): R57.9 - Shock, unspecified Status: Acute (5) Sepsis Code(s): A41.9 - Sepsis, unspecified organism Status: Acute - Plan Patient is in ARF on dilfucan Acute renal failure appears to be due to hypoperfusion of the kidney as a result of sepsis Creatinine 2.7. On Lasix Follow BMP and the urine out put. UOP ? Monitor
[2018-06-17] MEDS: Insulin Detemir Inj 1,000 UNIT/10 ML Vial SQ SCH (21:28)
[2018-06-17] MEDS: traZODone 50 MG Tablet PO SCH (21:28)
[2018-06-18] MEDS: Insulin NovoLOG Aspart Correctional Sugar Inj SQ SCH ×6 (01:16→21:20)
[2018-06-18] MEDS: Gabapentin 100 MG Capsule PO SCH ×3 (01:16→19:06)
[2018-06-18] MEDS: Albumin Human 25% Inj 100 ML IV.SIG SCH ×2 (04:10→15:10)
[2018-06-18 06:15] LABS: Baso % (Auto) 0.2 % (0.0-2.0); Eos % (Auto) 0.1 % (0.0-4.0); Hematocrit 24.9 % (35.0-46.0); Lymph # (Auto) 0.6 th/mm3 (1.0-4.8); Lymph % (Auto) 8.5 % (9.0-44.0); Mean Corpuscular Hemoglobin 29.3 pg (27.0-34.0); Mean Corpuscular Volume 91.4 fL (80.0-100.0); Mean Platelet Volume 8.6 fL (7.0-11.0); Mono # (Auto) 0.4 th/mm3 (0.0-0.9); Mono % (Auto) 5.3 % (0.0-8.0); Neut # (Auto) 6.5 th/mm3 (1.8-7.7); Neut % (Auto) 85.9 % (16.0-70.0); Platelet Count 289 th/mm3 (150-450); Red Blood Count 2.73 mil/mm3 (4.00-5.30); Red Cell Distribution Width 17.2 % (11.6-17.2); White Blood Count 7.5 th/mm3 (4.0-11.0)
[2018-06-18 06:34] LABS: Calcium 8.7 mg/dL (8.5-10.1); Carbon Dioxide 23.9 meq/L (21.0-32.0); Potassium 4.3 meq/L (3.5-5.1)
[2018-06-18 07:54] LABS: Lymphocytes 6 % (9-44); Metamyelocytes 2 % (0-1); Monocytes 9 % (0-8)
[2018-06-18 07:55] LABS: Platelet Estimate Normal (Normal); Platelet Morphology Normal (Normal)
[2018-06-18] MEDS: Mupirocin 2% Nasal Oint Topical Syringe EACH NARE SCH ×2 (09:08→20:02)
[2018-06-18] MEDS: oxyCODONE/Acetaminophen 10/325 Tablet PO PRN (09:09)
[2018-06-18] MEDS: Senna/Docusate Sodium 8.6/50 MG Tablet PO SCH ×2 (09:10→20:36)
[2018-06-18] MEDS: Furosemide 40 MG Tablet PO SCH (09:10)
[2018-06-18] MEDS: predniSONE 10 MG Tablet PO SCH (09:10)
[2018-06-18] MEDS: Carvedilol 12.5 MG Tablet PO SCH ×2 (09:10→20:35)
[2018-06-18] MEDS: guaiFENesin 600 MG ER Tablet PO SCH ×2 (09:10→20:36)
[2018-06-18] MEDS: Lactic Acid (Ammonium Lactate) 12% Lotion 225 GM Bottle TOPICAL SCH (09:11)
[2018-06-18] MEDS: Polyvinyl Alcohol/Povidone PF Opth Drops 0.4 ML Dropperette EACH EYE SCH ×2 (09:11→21:20)
[2018-06-18] MEDS: Budesonide-Formoterol 160/4.5 MCG 6 GM Inhaler INH SCH ×2 (09:11→21:20)
--- NOTE | 2018-06-18 11:54 | P.PN ---
Subjective Interval history: awake and alert but in distress- paradoxical breathing, can barely talk decreased breath sounds few basal rales telemetry sinus 70s Physical Exam Vital signs: Vital Signs 06/17/18 12:00 06/17/18 16:00 06/17/18 20:00 Temperature 97.8 F 97.6 F 97.8 F Pulse Rate 61 70 74 Respiratory Rate 20 17 16 Blood Pressure 142/75 H 140/72 141/72 H Pulse Oximetry 95 96 92 L 06/17/18 20:44 06/17/18 22:00 06/17/18 22:23 Temperature Pulse Rate 74 74 Respiratory Rate 25 H Blood Pressure Pulse Oximetry 97 06/18/18 00:00 06/18/18 02:00 06/18/18 04:00 Temperature 98.0 F 98.2 F Pulse Rate 64 64 57 L Respiratory Rate 16 16 Blood Pressure 159/73 H 152/72 H Pulse Oximetry 97 98 06/18/18 06:00 06/18/18 08:00 06/18/18 08:20 Temperature 98.9 F Pulse Rate 57 L 103 H 80 Respiratory Rate 20 20 Blood Pressure Pulse Oximetry 93 L 94 L 06/18/18 10:00 Temperature Pulse Rate 103 H Respiratory Rate Blood Pressure Pulse Oximetry Intake & Output 06/17/18 06/18/18 06/18/18 18:59 06:59 18:59 Intake Total 520 / 520 340 / 340 100 / 100 Output Total 800 / 800 1300 / 1300 Balance -280 / -280 -960 / -960 100 / 100 Weight 95.4 kg Intake: IV 200 / 200 100 / 100 100 / 100 Flexbumin 25% Inj 100 ML @ 60 100 / 100 100 / 100 100 / 100 mls/hr IV.SIG Q12H ANNE Rx#: [id number] Maxipime Inj 1,000 MG In NS Inj 100 / 100 100 ML @ 200 mls/hr IV.SIG Q12H ANNE Rx#:[id number] Oral 320 / 320 240 / 240 Output: Urine 800 / 800 1300 / 1300 Other: Date of Last Bowel Movement 06/13/18 # Bowel Movements 0 Narrative: Chronically ill-appearing elderly female in NAD.Confused. SKIN: Warm and dry. Pale. HEENT: Pupils equal and round. Pale conjunctiva. Throat clear. NECK: Supple no tender LAD or JVD. HEART: RRR no m/r/g. LUNGS: Decreased air entry, few basal rales ABDOMEN: +BS, soft, nondistended. Obese and No organomegaly. EXTREMITIES: 1 + LE edema. Diminished pedal pulses. NEURO: Awake and alert.No gross deficits. - Urinary Catheter Management Indwelling Urethral Catheter Cath placed during this visit: yes, but has since been removed by the nurse Reason for continuing: Continue criteria not met Insertion date: 06/08/18 Insertion time: 16:15 Removal date: 06/15/18 Removal time: 12:00 Results - Labs CBC & Chem 7: 06/18/18 05:24 06/18/18 05:24 Laboratory Results - last 24 hr 06/17/18 06/17/18 06/18/18 12:18 17:12 05:24 WBC 7.5 RBC 2.73 L Hgb 8.0 L Hct 24.9 L MCV 91.4 MCH 29.3 MCHC 32.0 RDW 17.2 Plt Count 289 MPV 8.6 Prelim Diff (Auto) Slide review pending Neut % (Auto) 85.9 H Lymph % (Auto) 8.5 L [place] % (Auto) 5.3 Eos % (Auto) 0.1 Baso % (Auto) 0.2 Neut # (Auto) 6.5 Lymph # (Auto) 0.6 L [place] # (Auto) 0.4 Eos # (Auto) 0.0 Baso # (Auto) 0.0 WBC Differential Manual diff final Seg Neuts % (Manual) 80 H Band Neuts % (Manual) 3 Lymphocytes % (Manual) 6 L Monocytes % (Manual) 9 H Metamyelocytes % (Man) 2 H Abs Neuts (Manual) 6.4 Differential Comment . Platelet Estimate Normal Platelet Morphology Normal Sodium Potassium Chloride Carbon Dioxide Anion Gap BUN Creatinine Estimated GFR POC Glucose 212 H 225 H Random Glucose Calcium 06/18/18 06/18/18 05:24 07:42 WBC RBC Hgb Hct MCV MCH MCHC RDW Plt Count MPV Prelim Diff (Auto) Neut % (Auto) Lymph % (Auto) [place] % (Auto) Eos % (Auto) Baso % (Auto) Neut # (Auto) Lymph # (Auto) [place] # (Auto) Eos # (Auto) Baso # (Auto) WBC Differential Seg Neuts % (Manual) Band Neuts % (Manual) Lymphocytes % (Manual) Monocytes % (Manual) Metamyelocytes % (Man) Abs Neuts (Manual) Differential Comment Platelet Estimate Platelet Morphology Sodium 148 H Potassium 4.3 Chloride 115 H Carbon Dioxide 23.9 Anion Gap 9 BUN 65 H Creatinine 2.47 H Estimated GFR 19 L POC Glucose 174 H Random Glucose 171 H Calcium 8.7 - Procedures central line placement. Assessment and Plan - Assessment (1) STEPHIE (acute kidney injury) Code(s): N17.9 - Acute kidney failure, unspecified Status: Acute (2) GI hemorrhage Code(s): K92.2 - Gastrointestinal hemorrhage, unspecified Status: Resolved (3) Anemia Code(s): D64.9 - Anemia, unspecified Status: Acute (4) Respiratory failure Code(s): J96.90 - Respiratory failure, unspecified, unspecified whether with hypoxia or hypercapnia Status: Acute - Plan 68 years old female Acute respiratory failure- on top of chronic respiratory faiure-- paradoxical breathing - stat ABG- show acute respiratory acidosis - ph 7.27, pC02 55, HC03- 22 02 sat 91 - stat cxr- increase infiltrates- CHF pattern, no pneumothorax - stat BNP 1048 - Lasix 40 mg IV x 1 now - on po Prednisone- change to IV steroids in IMC - transfer to [facility] bed-for close monitoring going 513- spoke to Dr. Michaels- [facility] consult - may require intubation if no improvement with BiPAP (3) Anemia Qualifiers: Other causes of anemia: acute posthemorrhagic (4) Respiratory failure Qualifiers: Chronicity: acute on chronic
[2018-06-18 12:04] LABS: ABG Base Excess -1.5 mmol/L (-2-2); ABG PCO2 55 mmHg (38-42); ABG PO2 73 mmHg (61-120)
[2018-06-18] MEDS ORDERED: Dexmedetomidine Inj 200 MCG in Sodium Chlor 0.9% Inj 48 ML IV.CONT PRN (12:22)
--- NOTE | 2018-06-18 12:24 | P.PNCC ---
Subjective Subjective Remarks/Hospital Course: 68-year-old female, with past medical history significant for COPD, PE, on blood thinners, presented initially with complaint of GI bleed. Per EMS report they were called to the senior care for respiratory distress. On their arrival they state that she was not in respiratory distress but she was hypotensive with a systolic blood pressure in the 60s and delayed cap refill. Blood sugar was within normal limits. They noted dark bloody stools. They were able to secure an IV and route did give her about 350 cc of fluids prior to arrival. Her last blood pressure prior to arrival was in the 110s systolic. Patient was able to say that her abdomen hurts but was not answering too many more questions, she denied chest pain, shortness of breath. The CT of the abdomen showed only large amount of stool in the bowel and the patient passed a large volume of stool after manual disimpaction. Shortly after this she has lost consciousness, became unresponsive with GCS of 3 requiring emergent intubation for an airway protection by ED attending. 05/20: Patient still became more hypotensive. Receiving 2 units PRBCs and K Centra 4500 units x1 now. Minimal response on the ventilator. Did withdraw to vigorous stimuli/sternal rub. Afebrile. 05/21: Currently resting in bed in no acute distress. Plan for extubation today. Hemoglobins remained stable. 05/22: Afebrile. Currently on 8 L nasal cannula. Will provide 1 dose of bumetanide and attempt to diurese. Discontinue IV fluids. CT brain overnight revealed no acute intracranial findings. Subjective: 05/29 Critical care medicine reconsulted for hemorrhagic shock. Patient underwent EGD/colonoscopy on 05/27 that demonstrated severe erythematous gastritis of gastric body and antrum, diverticulosis, large circumferential colitis in sigmoid colon. CTA 05/27 demonstrates atherosclerosis in the SMA without high-grade stenosis. She does have a history of pulmonary embolism that was treated with Xarelto. Her Xarelto had been on hold due to GI bleeding but was resumed today. This afternoon she began having large dark bowel movements with clots. She has crampy abdominal pain. She is nauseated but not vomiting. Hemoglobin dropped from 10.7 this morning to 7.[address] Castro has been consulted for evaluation of ischemic colitis. Upon his evaluation he found her hypotensive with a MAP of 50 and thus has requested critical care medicine consult due to hemorrhagic shock. I am placing art line and central line. She was started on Levophed [facility] reconsult note 06/18/18: 68 years old female who has multiple medical problems as above, admitted since . [facility] reconsulted for acute respiratory distress and impending respiratory failure with hypoxia. Evaluated by Dr. Garner on the floor stat ABG showed ph 7.27, pC02 55, PO2 73 02 sat 91 on 5 L nasal cannula. Patient was in severe respiratory distress, IV Lasix 40 mg given and patient was transferred to ICU. I evaluated patient immediately. Patient is tachypneic lethargic but wakes up easily. Chest x-ray shows bibasilar right more than left infiltrates indicating probable pneumonia. I will initiated patient on BiPAP 12/5 titrate FiO2 to keep saturation more than 90%. I will also hold prednisone start IV Solu-Medrol 60 mg every 8 hours continue breathing treatments and Symbicort. Broad-spectrum antibiotics with Zosyn and Zyvox until cultures are back check sputum urine and blood culture Objective Vital Signs / I&O: Vital Signs 06/17/18 16:00 06/17/18 20:00 06/17/18 20:44 Temperature 97.6 F 97.8 F Pulse Rate 70 74 74 Respiratory Rate 17 16 25 H Blood Pressure 140/72 141/72 H Pulse Oximetry 96 92 L 06/17/18 22:00 06/17/18 22:23 06/18/18 00:00 Temperature 98.0 F Pulse Rate 74 64 Respiratory Rate 16 Blood Pressure 159/73 H Pulse Oximetry 97 97 06/18/18 02:00 06/18/18 04:00 06/18/18 06:00 Temperature 98.2 F Pulse Rate 64 57 L 57 L Respiratory Rate 16 Blood Pressure 152/72 H Pulse Oximetry 98 06/18/18 08:00 06/18/18 08:20 06/18/18 10:00 Temperature 98.9 F Pulse Rate 103 H 80 103 H Respiratory Rate 20 20 Blood Pressure Pulse Oximetry 93 L 94 L 06/18/18 11:59 Temperature Pulse Rate 74 Respiratory Rate 20 Blood Pressure Pulse Oximetry Intake & Output 06/17/18 06/18/18 06/18/18 18:59 06:59 18:59 Intake Total 520 / 520 340 / 340 100 / 100 Output Total 800 / 800 1300 / 1300 Balance -280 / -280 -960 / -960 100 / 100 Weight 95.4 kg Intake: IV 200 / 200 100 / 100 100 / 100 Flexbumin 25% Inj 100 ML @ 60 100 / 100 100 / 100 100 / 100 mls/hr IV.SIG Q12H ANNE Rx#: [id number] Maxipime Inj 1,000 MG In NS Inj 100 / 100 100 ML @ 200 mls/hr IV.SIG Q12H ANNE Rx#:[id number] Oral 320 / 320 240 / 240 Output: Urine 800 / 800 1300 / 1300 Other: Date of Last Bowel Movement 06/13/18 # Bowel Movements 0 Result Diagrams: 06/18/18 05:24 06/18/18 05:24 Objective Remarks: GENERAL: 68-year-old female sitting [place] in [facility], anxious just started on BiPAP SKIN: Warm and dry. No rash HEAD: Atraumatic. Normocephalic. EYES: Pupils equal and round. No scleral icterus. ENT: No nasal bleeding or discharge. BiPAP mask limits exam NECK: Trachea midline. No JVD. CARDIOVASCULAR: Regular rate and rhythm. S1, S2 no S4. 1/6 systolic murmur left sternal border. RESPIRATORY: Tachypneic using accessory muscle use. Diminished air entry at the bases with bibasilar crackles bilateral expiratory wheezes GASTROINTESTINAL: Abdomen mildly distended, mild diffuse tenderness MUSCULOSKELETAL: Trace to 1+ edema bilateral lower extremities. NEUROLOGICAL: Alert awake lethargic. Moves all extremities no focal deficits Assessment and Plan - Problem List (1) Hemorrhagic shock Code(s): R57.8 - Other shock Status: Acute (2) Mesenteric ischemia Code(s): K55.9 - Vascular disorder of intestine, unspecified Status: Acute (3) Gastritis Code(s): K29.70 - Gastritis, unspecified, without bleeding Status: Acute (4) Anticoagulated Code(s): Z79.01 - retirement (current) use of anticoagulants Status: Acute (5) Obesity Code(s): E66.9 - Obesity, unspecified Status: Chronic (6) STEPHIE (acute kidney injury) Code(s): N17.9 - Acute kidney failure, unspecified Status: Acute (7) HLD (hyperlipidemia) Code(s): E78.5 - Hyperlipidemia, unspecified Status: Chronic (8) Chronic steroid use Status: Chronic (9) Hx pulmonary embolism Code(s): Z86.711 - Personal history of pulmonary embolism Status: Resolved (10) COPD (chronic obstructive pulmonary disease) Code(s): J44.9 - Chronic obstructive pulmonary disease, unspecified Status: Chronic (11) Acute blood loss anemia Code(s): D62 - Acute posthemorrhagic anemia Status: Acute - Assessment and Plan Plan: Plan: Neuro/Psych: Metabolic encephalopathy Depression/anxiety disorder NOS Peripheral neuropathy Currently lethargic due to hypercapnia will watch closely for airway protection Use Ativan and morphine PRN for anxiety and pain Precedex if needed for BiPAP synchrony Continue renally dosed gabapentin CT brain 05/20 and 05/21 revealed no acute intracranial findings CV: Mild pulmonary edema Essential hypertension Hyperlipidemia Questionable atrial septal defect on echocardiogram 04/18 2D echocardiogram time revealed EF 65-30%. LVH. Essentially normal pulmonary arterial pressures. Continue hydralazine and amlodipine and Lasix. Given 40 mg IV Lasix prior to transfer to ICU On atorvastatin 40 mg daily for dyslipidemia. Holding anticoagulation and antiplatelet therapy BNP >1000 Resp: Acute hypoxemic and hypercarbic respiratory failure Right lower lobe pneumonia COPD with acute exacerbation History of pulmonary embolism on chronic rivaroxaban Initiated on BiPAP 08/05 with repeat gas 30 minutes Hold prednisone start IV Solu-Medrol 60 every 8 hours Broad-spectrum antibiotics Extubated 05/21 previously Albuterol/ipratropium aerosols every 4 hours with albuterol aerosols every 2 as needed for dyspnea Continue budesonide/formoterol 160/4.52 puffs twice daily GI/HEME: Ischemic colitis, colonoscopy 05/[address] Porter Severe erythematous gastritis, esophagitis on EGD 05/27 GI bleeding Fecal impaction, resolved Disimpacted in the ED. Hypoalbuminemia Elevated lipase of unclear significance Continue Protonix 40 mg twice daily N.p.o. except meds until respiratory rachel stabilizes CT abdomen pelvis 05/27no pneumatosis. There is SMA atherosclerosis without high-grade stenosis. EGD and colonoscopy 05/27 demonstrated severe erythematous gastritis, esophagitis , diverticulitis, sigmoid ischemic colitis. Developed acute GI bleeding with hemorrhagic shock on 05/28 after receiving dose of Xarelto. Xarelto held since. . Endo: Hyperglycemia Chronic prednisone use - On solumedrol 60 mg IV q8 . Bedside glucose every 4 hours with medium dose insulin sliding scale as indicated. FEN/Renal: Acute kidney injury History of anterior urethral stricture Baseline creatinine around 1.1. now 2.6 Nephrology following and continue Lasix CT abdomen/pelvis revealed no hydronephrosis. Negative urine eosinophils. Avoid nephrotoxic medication. ID: Healthcare associated pneumonia Sepsis Lisbeth glabrata UTI Start Zosyn and Zyvox, check blood urine and sputum culture Urine culture 06/08/2018 had been positive for Lisbeth glabrata and patient had been on Diflucan (Even though C Glabrata) Repeat urine culture if positive for Lisbeth glabrata change to micafungin Access -PIV Prophylaxis -GI -pantoprazole 40 BID -DVT-SCD/holding pharmacological prophylaxis in light of GI bleed Patient is critically ill with sepsis pneumonia and acute hypercapnic and hypoxemic respiratory failure. At high risk of decompensation on BiPAP requiring endotracheal intubation. Continue supportive care with BiPAP steroids broad-spectrum antibiotics. . Critical care time 40 minutes exclusive of separately billable procedures per Code Status: Full Discussed Condition With: Dr. Garner, bedside RN (10) COPD (chronic obstructive pulmonary disease) Qualifiers: COPD type: unspecified COPD Qualified Code(s): J44.9 - Chronic obstructive pulmonary disease, unspecified
[2018-06-18] MEDS ORDERED: Piperacil/Tazo 2.25 GM Premix 50 ML IV.SIG SCH (12:30)
[2018-06-18 12:59] LABS: ABG Base Excess -0.9 mmol/L (-2-2); ABG PCO2 44 mmHg (38-42); ABG PO2 74 mmHG (61-120)
[2018-06-18] MEDS: MethylPREDNISolone Sod Succinate Inj 125 MG/2 ML Vial IV.PUSH SCH ×2 (13:36→21:21)
--- NOTE | 2018-06-18 15:09 | P.PNNP ---
Subjective Interval history: IMC due to shortness of breath given Lasix on Bipap Physical Exam Vital signs: Vital Signs 06/17/18 16:00 06/17/18 20:00 06/17/18 20:44 Temperature 97.6 F 97.8 F Pulse Rate 70 74 74 Respiratory Rate 17 16 25 H Blood Pressure 140/72 141/72 H Pulse Oximetry 96 92 L 06/17/18 22:00 06/17/18 22:23 06/18/18 00:00 Temperature 98.0 F Pulse Rate 74 64 Respiratory Rate 16 Blood Pressure 159/73 H Pulse Oximetry 97 97 06/18/18 02:00 06/18/18 04:00 06/18/18 06:00 Temperature 98.2 F Pulse Rate 64 57 L 57 L Respiratory Rate 16 Blood Pressure 152/72 H Pulse Oximetry 98 06/18/18 08:00 06/18/18 08:20 06/18/18 10:00 Temperature 98.9 F Pulse Rate 103 H 80 103 H Respiratory Rate 20 20 Blood Pressure Pulse Oximetry 93 L 94 L 06/18/18 11:59 06/18/18 12:00 06/18/18 12:20 Temperature 97.7 F Pulse Rate 74 54 L 73 Respiratory Rate 20 20 23 Blood Pressure 158/69 H 186/81 H Pulse Oximetry 93 L 90 L Intake & Output 06/17/18 06/18/18 06/18/18 18:59 06:59 18:59 Intake Total 520 / 520 340 / 340 100 / 100 Output Total 800 / 800 1300 / 1300 Balance -280 / -280 -960 / -960 100 / 100 Weight 95.4 kg Intake: IV 200 / 200 100 / 100 100 / 100 Flexbumin 25% Inj 100 ML @ 60 100 / 100 100 / 100 100 / 100 mls/hr IV.SIG Q12H ANNE Rx#: [id number] Maxipime Inj 1,000 MG In NS Inj 100 / 100 100 ML @ 200 mls/hr IV.SIG Q12H ANNE Rx#:[id number] Oral 320 / 320 240 / 240 Output: Urine 800 / 800 1300 / 1300 Other: Date of Last Bowel Movement 06/13/18 # Bowel Movements 0 Narrative: Chronically ill-appearing elderly female in NAD.Confused. SKIN: Warm and dry. Pale. HEENT: Pupils equal and round. Pale conjunctiva. Throat clear. NECK: Supple no tender LAD or JVD. HEART: RRR no m/r/g. LUNGS: Decreased air entry, few basal rales ABDOMEN: +BS, soft, nondistended. Obese and No organomegaly. EXTREMITIES: 1 + LE edema. Diminished pedal pulses. NEURO: Awake and alert.No gross deficits. - Urinary Catheter Management Indwelling Urethral Catheter Cath placed during this visit: yes, but has since been removed by the nurse Reason for continuing: Continue criteria not met Insertion date: 06/08/18 Insertion time: 16:15 Removal date: 06/15/18 Removal time: 12:00 Assessment and Plan - Assessment (1) STEPHIE (acute kidney injury) Code(s): N17.9 - Acute kidney failure, unspecified Status: Acute (2) GI bleed requiring more than 4 units of blood in 24 hours, ICU, or surgery Code(s): K92.2 - Gastrointestinal hemorrhage, unspecified Status: Acute (3) Anemia Code(s): D64.9 - Anemia, unspecified Status: Acute Qualifiers: Other causes of anemia: acute posthemorrhagic (4) Shock Code(s): R57.9 - Shock, unspecified Status: Acute (5) Sepsis Code(s): A41.9 - Sepsis, unspecified organism Status: Acute - Plan Patient had pneumonia, and back to ICU on Bipap Patient is in ARF on dilfucan/zyvox/zosyn Acute renal failure appears to be due to hypoperfusion of the kidney as a result of sepsis Creatinine 2.4. On Lasix Follow BMP and the urine out put.
[2018-06-18] MEDS: Piperacil/Tazo 2.25 GM Premix 50 ML IV.SIG SCH ×2 (15:10→21:25)
[2018-06-18] MEDS: Morphine Inj 4 MG/ML Vial IV.PUSH PRN ×2 (19:06→23:07)
--- NOTE | 2018-06-18 19:37 | P.PN ---
Subjective Interval history: Was in respiratory distress this am and now in ICU and On BiPAP 12/5 CM , 50 % FIO2 Alert and anxious. CXR shows basal infiltrates. ABG shows Hypercarbia. Physical Exam Vital signs: Vital Signs 06/17/18 20:00 06/17/18 20:44 06/17/18 22:00 Temperature 97.8 F Pulse Rate 74 74 74 Respiratory Rate 16 25 H Blood Pressure 141/72 H Pulse Oximetry 92 L 06/17/18 22:23 06/18/18 00:00 06/18/18 02:00 Temperature 98.0 F Pulse Rate 64 64 Respiratory Rate 16 Blood Pressure 159/73 H Pulse Oximetry 97 97 06/18/18 04:00 06/18/18 06:00 06/18/18 08:00 Temperature 98.2 F 98.9 F Pulse Rate 57 L 57 L 103 H Respiratory Rate 16 20 Blood Pressure 152/72 H Pulse Oximetry 98 93 L 06/18/18 08:20 06/18/18 10:00 06/18/18 11:59 Temperature Pulse Rate 80 103 H 74 Respiratory Rate 20 20 Blood Pressure Pulse Oximetry 94 L 06/18/18 12:00 06/18/18 12:20 06/18/18 14:00 Temperature 97.7 F Pulse Rate 68 73 66 Respiratory Rate 20 23 18 Blood Pressure 158/69 H 186/81 H Pulse Oximetry 93 L 90 L 06/18/18 15:36 06/18/18 15:47 06/18/18 16:00 Temperature 98.1 F Pulse Rate 69 66 Respiratory Rate 24 20 Blood Pressure 178/78 H Pulse Oximetry 98 97 06/18/18 18:00 Temperature Pulse Rate 74 Respiratory Rate Blood Pressure Pulse Oximetry Intake & Output 06/18/18 06/18/18 06/19/18 06:59 18:59 06:59 Intake Total 340 / 340 150 / 150 Output Total 1300 / 1300 800 / 800 Balance -960 / -960 -650 / -650 Weight 95.4 kg Intake: IV 100 / 100 150 / 150 Flexbumin 25% Inj 100 ML @ 60 100 / 100 100 / 100 mls/hr IV.SIG Q12H ANNE Rx#: [id number] Zosyn 2.25 GM Premix 50 ML @ 50 / 50 100 mls/hr IV.SIG Q8H ANNE Rx#: [id number] Oral 240 / 240 0 / 0 Output: Urine 1300 / 1300 800 / 800 Other: Date of Last Bowel Movement 06/13/18 06/18/18 Narrative: Chronically ill-appearing elderly female in resp distress.Confused. SKIN: Warm and dry. Pale. HEENT: Pupils equal and round. Pale conjunctiva. Throat clear. NECK: Supple no tender LAD or JVD. HEART: RRR no m/r/g. LUNGS: Decreased air entry, Bi basal rales and wheezes. ABDOMEN: +BS, soft, nondistended. Obese and No organomegaly. EXTREMITIES: 1 + LE edema. Diminished pedal pulses. NEURO: Awake and alert. No gross deficits. - Urinary Catheter Management Indwelling Urethral Catheter Cath placed during this visit: yes, but has since been removed by the nurse Reason for continuing: Continue criteria not met Insertion date: 06/08/18 Insertion time: 16:15 Removal date: 06/15/18 Removal time: 12:00 Results - Labs CBC & Chem 7: 06/18/18 05:24 06/18/18 05:24 Laboratory Results - last 24 hr 06/18/18 06/18/18 06/18/18 05:24 05:24 05:24 WBC 7.5 RBC 2.73 L Hgb 8.0 L Hct 24.9 L MCV 91.4 MCH 29.3 MCHC 32.0 RDW 17.2 Plt Count 289 MPV 8.6 Prelim Diff (Auto) Slide review pending Neut % (Auto) 85.9 H Lymph % (Auto) 8.5 L Lake % (Auto) 5.3 Eos % (Auto) 0.1 Baso % (Auto) 0.2 Neut # (Auto) 6.5 Lymph # (Auto) 0.6 L Lake # (Auto) 0.4 Eos # (Auto) 0.0 Baso # (Auto) 0.0 WBC Differential Manual diff final Seg Neuts % (Manual) 80 H Band Neuts % (Manual) 3 Lymphocytes % (Manual) 6 L Monocytes % (Manual) 9 H Metamyelocytes % (Man) 2 H Abs Neuts (Manual) 6.4 Differential Comment . Platelet Estimate Normal Platelet Morphology Normal Puncture Site Patient Temperature O2 Saturation ABG pH ABG pCO2 ABG pO2 ABG HCO3 ABG O2 Content ABG Base Excess ABG Methemoglobin Spenser Test Hemoglobin Carboxyhemoglobin O2 Delivery Device Liter Flow Inspired O2 Critical Value Sodium 148 H Potassium 4.3 Chloride 115 H Carbon Dioxide 23.9 Anion Gap 9 BUN 65 H Creatinine 2.47 H Estimated GFR 19 L POC Glucose Random Glucose 171 H Calcium 8.7 B-Natriuretic Peptide 1089 H 06/18/18 06/18/18 06/18/18 07:42 11:55 12:50 WBC RBC Hgb Hct MCV MCH MCHC RDW Plt Count MPV Prelim Diff (Auto) Neut % (Auto) Lymph % (Auto) Lake % (Auto) Eos % (Auto) Baso % (Auto) Neut # (Auto) Lymph # (Auto) Lake # (Auto) Eos # (Auto) Baso # (Auto) WBC Differential Seg Neuts % (Manual) Band Neuts % (Manual) Lymphocytes % (Manual) Monocytes % (Manual) Metamyelocytes % (Man) Abs Neuts (Manual) Differential Comment Platelet Estimate Platelet Morphology Puncture Site Left radial Right radial Patient Temperature 98.6 98.6 O2 Saturation 91 93 ABG pH 7.27 L* 7.35 L ABG pCO2 55 H* 44 H ABG pO2 73 74 ABG HCO3 25 24 ABG O2 Content 10.9 L 10.7 L ABG Base Excess -1.5 -0.9 ABG Methemoglobin 1.3 1.6 Spenser Test Present Present Hemoglobin 8.5 L 8.2 L Carboxyhemoglobin 1.1 1.1 O2 Delivery Device Nasal cannula Bipap 18ipap/5epap Liter Flow 4.00 Inspired O2 35 Critical Value Yes No Sodium Potassium Chloride Carbon Dioxide Anion Gap BUN Creatinine Estimated GFR POC Glucose 174 H Random Glucose Calcium B-Natriuretic Peptide 06/18/18 16:46 WBC RBC Hgb Hct MCV MCH MCHC RDW Plt Count MPV Prelim Diff (Auto) Neut % (Auto) Lymph % (Auto) Lake % (Auto) Eos % (Auto) Baso % (Auto) Neut # (Auto) Lymph # (Auto) Lake # (Auto) Eos # (Auto) Baso # (Auto) WBC Differential Seg Neuts % (Manual) Band Neuts % (Manual) Lymphocytes % (Manual) Monocytes % (Manual) Metamyelocytes % (Man) Abs Neuts (Manual) Differential Comment Platelet Estimate Platelet Morphology Puncture Site Patient Temperature O2 Saturation ABG pH ABG pCO2 ABG pO2 ABG HCO3 ABG O2 Content ABG Base Excess ABG Methemoglobin Spenser Test Hemoglobin Carboxyhemoglobin O2 Delivery Device Liter Flow Inspired O2 Critical Value Sodium Potassium Chloride Carbon Dioxide Anion Gap BUN Creatinine Estimated GFR POC Glucose 243 H Random Glucose Calcium B-Natriuretic Peptide - Procedures central line placement. Assessment and Plan - Assessment (1) GI bleed requiring more than 4 units of blood in 24 hours, ICU, or surgery Code(s): K92.2 - Gastrointestinal hemorrhage, unspecified Status: Acute (2) Anemia Code(s): D64.9 - Anemia, unspecified Status: Acute (3) Shock Code(s): R57.9 - Shock, unspecified Status: Acute (4) COPD (chronic obstructive pulmonary disease) Code(s): J44.9 - Chronic obstructive pulmonary disease, unspecified Status: Chronic (5) Major depression, recurrent Code(s): F33.9 - Major depressive disorder, recurrent, unspecified Status: Acute (6) Sepsis Code(s): A41.9 - Sepsis, unspecified organism Status: Acute (7) Atelectasis Code(s): J98.11 - Atelectasis Status: Acute (8) Respiratory failure Code(s): J96.90 - Respiratory failure, unspecified, unspecified whether with hypoxia or hypercapnia Status: Acute (9) Aspiration pneumonia Code(s): J69.0 - Pneumonitis due to inhalation of food and vomit Status: Acute (10) Mixed personality disorder Code(s): F60.89 - Other specific personality disorders Status: Suspected - Plan 1. Cont on BiPAP12/5 and wean FIO2 to 40 % 2. CXR in am. 3. Duonebs qid and Q4H PRN 4. CBC BMP in am 5. Will cont Antibiotics Zyvox/Zosyn 6. Solumedrol 60 mg IV Q8H 7. Symbicort 160/4.5 mcg , 2puffs BID 8. Swallow Evaluation. (2) Anemia Qualifiers: Other causes of anemia: acute posthemorrhagic (4) COPD (chronic obstructive pulmonary disease) Qualifiers: COPD type: unspecified COPD Qualified Code(s): J44.9 - Chronic obstructive pulmonary disease, unspecified (8) Respiratory failure Qualifiers: Chronicity: acute on chronic
[2018-06-18] MEDS: Labetalol HCl Inj 100 MG/20 ML Vial IV.PUSH PRN (20:00)
[2018-06-18] MEDS ORDERED: hydrALAZINE HCl Inj 20 MG/ML Vial IV.PUSH PRN (20:29)
[2018-06-18] MEDS: traZODone 50 MG Tablet PO SCH (20:35)
[2018-06-18] MEDS: hydrALAZINE HCl Inj 20 MG/ML Vial IV.PUSH PRN (22:28)
[2018-06-19] MEDS: Insulin NovoLOG Aspart Correctional Sugar Inj SQ SCH ×6 (00:47→22:34)
[2018-06-19] MEDS: Gabapentin 100 MG Capsule PO SCH ×3 (01:31→17:40)
[2018-06-19] MEDS: hydrALAZINE HCl Inj 20 MG/ML Vial IV.PUSH PRN ×2 (02:12→06:18)
[2018-06-19] MEDS: Labetalol HCl Inj 100 MG/20 ML Vial IV.PUSH PRN ×2 (03:38→20:34)
[2018-06-19] MEDS: Albumin Human 25% Inj 100 ML IV.SIG SCH ×2 (03:42→17:40)
[2018-06-19] MEDS: Morphine Inj 4 MG/ML Vial IV.PUSH PRN ×3 (03:49→21:00)
[2018-06-19] MEDS: MethylPREDNISolone Sod Succinate Inj 125 MG/2 ML Vial IV.PUSH SCH (05:47)
[2018-06-19] MEDS: Piperacil/Tazo 2.25 GM Premix 50 ML IV.SIG SCH ×3 (05:47→23:35)
[2018-06-19] MEDS: Mupirocin 2% Nasal Oint Topical Syringe EACH NARE SCH ×3 (06:24→22:22)
--- NOTE | 2018-06-19 08:53 | XR ---
EXAM DATE: 06/18/2018 11:48 AM EDT AGE/SEX: 68 years / Female INDICATIONS: Short of breath. CLINICAL DATA: This is the patient's subsequent encounter. Patient reports that signs and symptoms h ave been present for 4 - 6 days and indicates a pain score of 0/10. MEDICAL/SURGICAL HISTORY: None. Chronic obstructive pulmonary disease. Hypertension. Pulmonary emboli. Cholecystectomy. COMPARISON: [facility] [place], CHEST 1V SINGLE AP, 06/17/2018. . FINDINGS: Persistent patchy airspace consolidation in the lower lobes with likely trace bilateral pleural effus ions. Diffuse interstitial prominence with indistinct central pulmonary vascularity. Cardiac silhouet te is marginally enlarged. Remainder of exam is unchanged. CONCLUSION: 1. Persistent pulmonary edema pattern with probable small bilateral pleural effusions. Electronically signed by: Sanket Regalado MD 06/18/2018 12:13 PM EDT
[2018-06-19] MEDS: Polyvinyl Alcohol/Povidone PF Opth Drops 0.4 ML Dropperette EACH EYE SCH ×2 (09:17→22:22)
[2018-06-19] MEDS: Budesonide-Formoterol 160/4.5 MCG 6 GM Inhaler INH SCH ×2 (09:17→22:21)
[2018-06-19] MEDS: Carvedilol 12.5 MG Tablet PO SCH ×2 (09:45→20:45)
[2018-06-19] MEDS: Lactic Acid (Ammonium Lactate) 12% Lotion 225 GM Bottle TOPICAL SCH (09:46)
[2018-06-19] MEDS: Furosemide 40 MG Tablet PO SCH (09:47)
[2018-06-19] MEDS: Senna/Docusate Sodium 8.6/50 MG Tablet PO SCH ×2 (09:48→20:45)
[2018-06-19] MEDS: guaiFENesin 600 MG ER Tablet PO SCH ×2 (09:48→20:45)
--- NOTE | 2018-06-19 11:50 | P.PN ---
Subjective Interval history: She is confused. Needs a swallow test. On a N/C 4L. Used BiPAP last PM. Physical Exam Vital signs: Vital Signs 06/18/18 11:59 06/18/18 12:00 06/18/18 12:20 Temperature 97.7 F Pulse Rate 74 68 73 Respiratory Rate 20 20 23 Blood Pressure 158/69 H 186/81 H Pulse Oximetry 93 L 90 L 06/18/18 14:00 06/18/18 15:36 06/18/18 15:47 Temperature Pulse Rate 66 69 Respiratory Rate 18 24 Blood Pressure Pulse Oximetry 98 06/18/18 16:00 06/18/18 18:00 06/18/18 19:18 Temperature 98.1 F Pulse Rate 66 74 69 Respiratory Rate 20 15 Blood Pressure 178/78 H Pulse Oximetry 97 100 06/18/18 19:30 06/18/18 20:00 06/18/18 22:00 Temperature 98.6 F Pulse Rate 70 59 L Respiratory Rate 17 Blood Pressure 190/81 H Pulse Oximetry 100 100 06/18/18 23:13 06/19/18 00:00 06/19/18 00:30 Temperature 98.6 F Pulse Rate 77 61 Respiratory Rate 19 11 L Blood Pressure 166/73 H Pulse Oximetry 99 99 06/19/18 01:30 06/19/18 02:00 06/19/18 02:30 Temperature Pulse Rate 58 L 60 66 Respiratory Rate 11 L 11 L 11 L Blood Pressure 173/75 H 176/72 H 167/70 H Pulse Oximetry 99 98 98 06/19/18 03:00 06/19/18 03:30 06/19/18 04:00 Temperature 98.7 F Pulse Rate 67 62 72 Respiratory Rate 11 L 11 L 12 Blood Pressure 174/74 H 176/74 H Pulse Oximetry 99 99 98 06/19/18 04:15 06/19/18 06:00 06/19/18 06:42 Temperature Pulse Rate 65 Respiratory Rate Blood Pressure Pulse Oximetry 98 99 06/19/18 08:06 06/19/18 11:39 Temperature Pulse Rate 69 82 Respiratory Rate 10 L 22 Blood Pressure Pulse Oximetry 98 Intake & Output 06/18/18 06/19/18 06/19/18 18:59 06:59 18:59 Intake Total 500 / 500 50 / 50 Output Total 800 / 800 2000 / 1999 Balance -300 / -300 -1951 / -1951 Weight 90.9 kg Intake: IV 500 / 500 50 / 50 Flexbumin 25% Inj 100 ML @ 60 150 / 150 mls/hr IV.SIG Q12H ANNE Rx#: [id number] Zyvox 600 mg Premix 300 ML @ 300 / 300 300 mls/hr IV.SIG Q12H ANNE Rx#: [id number] Zosyn 2.25 GM Premix 50 ML @ 50 / 50 50 / 50 100 mls/hr IV.SIG Q8H ANNE Rx#: [id number] Oral 0 / 0 0 / 0 Output: Urine 800 / 800 1999 Other: Date of Last Bowel Movement 06/18/18 06/18/18 # Bowel Movements 1 Narrative: Chronically ill-appearing elderly female in NAD.Confused. SKIN: Cool and dry. Pale. HEENT: Pupils equal and round. Pale conjunctiva. Throat clear. NECK: Supple no tender LAD or JVD. HEART: RRR no m/r/g. LUNGS: Decreased air entry, BI basal crackles and Wheezes ABDOMEN: +BS, soft, nondistended. Obese and No organomegaly. EXTREMITIES: 1 + LE edema. Diminished pedal pulses. NEURO: Awake and alert.No gross deficits. - Urinary Catheter Management Indwelling Urethral Catheter Cath placed during this visit: yes, but has since been removed by the nurse Reason for continuing: Continue criteria not met Insertion date: 06/08/18 Insertion time: 16:15 Removal date: 06/15/18 Removal time: 12:00 Results - Labs CBC & Chem 7: 06/18/18 05:24 06/18/18 05:24 Laboratory Results - last 24 hr 06/18/18 06/18/18 06/18/18 05:24 11:55 12:50 Puncture Site Left radial Right radial Patient Temperature 98.6 98.6 O2 Saturation 91 93 ABG pH 7.27 L* 7.35 L ABG pCO2 55 H* 44 H ABG pO2 73 74 ABG HCO3 25 24 ABG O2 Content 10.9 L 10.7 L ABG Base Excess -1.5 -0.9 ABG Methemoglobin 1.3 1.6 Spenser Test Present Present Hemoglobin 8.5 L 8.2 L Carboxyhemoglobin 1.1 1.1 O2 Delivery Device Nasal cannula Bipap 18ipap/5epap Liter Flow 4.00 Inspired O2 35 Critical Value Yes No POC Glucose B-Natriuretic Peptide 1089 H 06/18/18 06/18/18 06/19/18 16:46 19:48 00:42 Puncture Site Patient Temperature O2 Saturation ABG pH ABG pCO2 ABG pO2 ABG HCO3 ABG O2 Content ABG Base Excess ABG Methemoglobin Spenser Test Hemoglobin Carboxyhemoglobin O2 Delivery Device Liter Flow Inspired O2 Critical Value POC Glucose 243 H 275 H 281 H B-Natriuretic Peptide 06/19/18 03:51 Puncture Site Patient Temperature O2 Saturation ABG pH ABG pCO2 ABG pO2 ABG HCO3 ABG O2 Content ABG Base Excess ABG Methemoglobin Spenser Test Hemoglobin Carboxyhemoglobin O2 Delivery Device Liter Flow Inspired O2 Critical Value POC Glucose 308 H B-Natriuretic Peptide Microbiology 06/18/18 14:00 Blood - Peripheral Aerobic Blood Culture - Preliminary No growth in 1 day 06/18/18 14:00 Blood - Peripheral Anaerobic Blood Culture - Preliminary No growth in 1 day 06/18/18 13:54 Blood - Peripheral Aerobic Blood Culture - Preliminary No growth in 1 day 06/18/18 13:54 Blood - Peripheral Anaerobic Blood Culture - Preliminary No growth in 1 day - Imaging Impressions Chest X-Ray 06/18/18 11:48 CONCLUSION: 1. Persistent pulmonary edema pattern with probable small bilateral pleural effusions. - Procedures central line placement. Assessment and Plan - Assessment (1) GI bleed requiring more than 4 units of blood in 24 hours, ICU, or surgery Code(s): K92.2 - Gastrointestinal hemorrhage, unspecified Status: Acute (2) Anemia Code(s): D64.9 - Anemia, unspecified Status: Acute (3) Shock Code(s): R57.9 - Shock, unspecified Status: Acute (4) COPD (chronic obstructive pulmonary disease) Code(s): J44.9 - Chronic obstructive pulmonary disease, unspecified Status: Chronic (5) Major depression, recurrent Code(s): F33.9 - Major depressive disorder, recurrent, unspecified Status: Acute (6) Sepsis Code(s): A41.9 - Sepsis, unspecified organism Status: Acute (7) Atelectasis Code(s): J98.11 - Atelectasis Status: Acute (8) Respiratory failure Code(s): J96.90 - Respiratory failure, unspecified, unspecified whether with hypoxia or hypercapnia Status: Acute (9) Aspiration pneumonia Code(s): J69.0 - Pneumonitis due to inhalation of food and vomit Status: Acute (10) Mixed personality disorder Code(s): F60.89 - Other specific personality disorders Status: Suspected - Plan 1. Cont on BiPAP12/5 and wean FIO2 to 35 % at HS and PRN 2. CBC, BMP in am. 3. Duonebs qid and Q4H PRN 4. PT evaluation 5. Will cont Antibiotics Zyvox/Zosyn 6. Solumedrol 40 mg IV Q8H 7. Symbicort 160/4.5 mcg , 2puffs BID 8. Swallow Evaluation. (2) Anemia Qualifiers: Other causes of anemia: acute posthemorrhagic (4) COPD (chronic obstructive pulmonary disease) Qualifiers: COPD type: unspecified COPD Qualified Code(s): J44.9 - Chronic obstructive pulmonary disease, unspecified (8) Respiratory failure Qualifiers: Chronicity: acute on chronic
[2018-06-19 12:32] LABS: Calcium 9.1 mg/dL (8.5-10.1); Carbon Dioxide 28.3 meq/L (21.0-32.0); Magnesium 2.8 mg/dL (1.5-2.5); Phosphorus 3.3 mg/dL (2.5-4.9); Potassium 3.3 meq/L (3.5-5.1)
--- NOTE | 2018-06-19 14:48 | P.PNCC ---
Subjective Subjective Remarks/Hospital Course: 68-year-old female, with past medical history significant for COPD, PE, on blood thinners, presented initially with complaint of GI bleed. Per EMS report they were called to the residential for respiratory distress. On their arrival they state that she was not in respiratory distress but she was hypotensive with a systolic blood pressure in the 60s and delayed cap refill. Blood sugar was within normal limits. They noted dark bloody stools. They were able to secure an IV and route did give her about 350 cc of fluids prior to arrival. Her last blood pressure prior to arrival was in the 110s systolic. Patient was able to say that her abdomen hurts but was not answering too many more questions, she denied chest pain, shortness of breath. The CT of the abdomen showed only large amount of stool in the bowel and the patient passed a large volume of stool after manual disimpaction. Shortly after this she has lost consciousness, became unresponsive with GCS of 3 requiring emergent intubation for an airway protection by ED attending. 05/20: Patient still became more hypotensive. Receiving 2 units PRBCs and K Centra 4500 units x1 now. Minimal response on the ventilator. Did withdraw to vigorous stimuli/sternal rub. Afebrile. 05/21: Currently resting in bed in no acute distress. Plan for extubation today. Hemoglobins remained stable. 05/22: Afebrile. Currently on 8 L nasal cannula. Will provide 1 dose of bumetanide and attempt to diurese. Discontinue IV fluids. CT brain overnight revealed no acute intracranial findings. 05/29 Critical care medicine reconsulted for hemorrhagic shock. Patient underwent EGD/colonoscopy on 05/27 that demonstrated severe erythematous gastritis of gastric body and antrum, diverticulosis, large circumferential colitis in sigmoid colon. CTA 05/27 demonstrates atherosclerosis in the SMA without high-grade stenosis. She does have a history of pulmonary embolism that was treated with Xarelto. Her Xarelto had been on hold due to GI bleeding but was resumed today. This afternoon she began having large dark bowel movements with clots. She has crampy abdominal pain. She is nauseated but not vomiting. Hemoglobin dropped from 10.7 this morning to 7.[address] Castro has been consulted for evaluation of ischemic colitis. Upon his evaluation he found her hypotensive with a MAP of 50 and thus has requested critical care medicine consult due to hemorrhagic shock. I am placing art line and central line. She was started on Levophed [facility] reconsult note 06/18/18: 68 years old female who has multiple medical problems as above, admitted since . [facility] reconsulted for acute respiratory distress and impending respiratory failure with hypoxia. Evaluated by Dr. Garner on the floor stat ABG showed ph 7.27, pC02 55, PO2 73 02 sat 91 on 5 L nasal cannula. Patient was in severe respiratory distress, IV Lasix 40 mg given and patient was transferred to ICU. I evaluated patient immediately. Patient is tachypneic lethargic but wakes up easily. Chest x-ray shows bibasilar right more than left infiltrates indicating probable pneumonia. I will initiated patient on BiPAP 12/5 titrate FiO2 to keep saturation more than 90%. I will also hold prednisone start IV Solu-Medrol 60 mg every 8 hours continue breathing treatments and Symbicort. Broad-spectrum antibiotics with Zosyn and Zyvox until cultures are back check sputum urine and blood culture Subjective: 06/19: Currently on 3 L nasal cannula. X-ray appears to be pulmonary edema with small pleural effusion. Will give 1 additional dose of furosemide 40 mg IV x1 now. Creatinine slowly normalizing. Objective Vital Signs / I&O: Vital Signs 06/18/18 15:36 06/18/18 15:47 06/18/18 16:00 Temperature 98.1 F Pulse Rate 69 66 Respiratory Rate 24 20 Blood Pressure 178/78 H Pulse Oximetry 98 97 06/18/18 18:00 06/18/18 19:18 06/18/18 19:30 Temperature Pulse Rate 74 69 Respiratory Rate 15 Blood Pressure Pulse Oximetry 100 100 06/18/18 20:00 06/18/18 22:00 06/18/18 23:13 Temperature 98.6 F Pulse Rate 70 59 L 77 Respiratory Rate 17 19 Blood Pressure 190/81 H Pulse Oximetry 100 06/19/18 00:00 06/19/18 00:30 06/19/18 01:30 Temperature 98.6 F Pulse Rate 61 58 L Respiratory Rate 11 L 11 L Blood Pressure 166/73 H 173/75 H Pulse Oximetry 99 99 99 06/19/18 02:00 06/19/18 02:30 06/19/18 03:00 Temperature Pulse Rate 60 66 67 Respiratory Rate 11 L 11 L 11 L Blood Pressure 176/72 H 167/70 H 174/74 H Pulse Oximetry 98 98 99 06/19/18 03:30 06/19/18 04:00 06/19/18 04:15 Temperature 98.7 F Pulse Rate 62 72 Respiratory Rate 11 L 12 Blood Pressure 176/74 H Pulse Oximetry 99 98 98 06/19/18 06:00 06/19/18 06:42 06/19/18 08:00 Temperature 98.5 F Pulse Rate 65 64 Respiratory Rate 11 L Blood Pressure 170/72 H Pulse Oximetry 99 99 06/19/18 08:06 06/19/18 10:00 06/19/18 11:39 Temperature Pulse Rate 69 10 L 82 Respiratory Rate 10 L 22 Blood Pressure Pulse Oximetry 98 06/19/18 11:52 Temperature Pulse Rate Respiratory Rate Blood Pressure Pulse Oximetry 95 Intake & Output 06/18/18 06/19/18 06/19/18 18:59 06:59 18:59 Intake Total 500 / 500 50 / 50 Output Total 800 / 800 1999 Balance -300 / -300 -1950 / -1950 Weight 90.9 kg Intake: IV 500 / 500 50 / 50 Flexbumin 25% Inj 100 ML @ 60 150 / 150 mls/hr IV.SIG Q12H ANNE Rx#: [id number] Zyvox 600 mg Premix 300 ML @ 300 / 300 300 mls/hr IV.SIG Q12H ANNE Rx#: [id number] Zosyn 2.25 GM Premix 50 ML @ 50 / 50 50 / 50 100 mls/hr IV.SIG Q8H ANNE Rx#: [id number] Oral 0 / 0 0 / 0 Output: Urine 800 / 800 1999 Other: Date of Last Bowel Movement 06/18/18 06/18/18 # Bowel Movements 1 Result Diagrams: 06/18/18 05:24 06/19/18 11:20 Other Results: Microbiology 06/18/18 14:00 Blood - Peripheral Aerobic Blood Culture - Preliminary No growth in 1 day 06/18/18 14:00 Blood - Peripheral Anaerobic Blood Culture - Preliminary No growth in 1 day 06/18/18 13:54 Blood - Peripheral Aerobic Blood Culture - Preliminary No growth in 1 day 06/18/18 13:54 Blood - Peripheral Anaerobic Blood Culture - Preliminary No growth in 1 day 06/08/18 17:45 Catheterized Urine Urine Culture - Final Lisbeth glabrata 06/05/18 19:50 Blood - Peripheral Aerobic Blood Culture - Final No growth in 5 days 06/05/18 19:50 Blood - Peripheral Anaerobic Blood Culture - Final No growth in 5 days 06/05/18 19:58 Blood - Peripheral Aerobic Blood Culture - Final No growth in 5 days 06/05/18 19:58 Blood - Peripheral Anaerobic Blood Culture - Final No growth in 5 days 06/06/18 06:15 Catheterized Urine Urine Culture - Final Lisbeth glabrata 05/29/18 04:40 Blood - Peripheral Aerobic Blood Culture - Final No growth in 5 days 05/29/18 04:40 Blood - Peripheral Anaerobic Blood Culture - Final No growth in 5 days 05/29/18 04:40 Blood - Peripheral Aerobic Blood Culture - Final No growth in 5 days 05/29/18 04:40 Blood - Peripheral Anaerobic Blood Culture - Final No growth in 5 days 05/28/18 18:40 Stool Stool Occult Blood (SARAHI) - Final Hemoccult positive 05/20/18 03:15 Blood - Peripheral Aerobic Blood Culture - Final No growth in 5 days 05/20/18 03:15 Blood - Peripheral Anaerobic Blood Culture - Final No growth in 5 days 05/20/18 03:10 Blood - Peripheral Aerobic Blood Culture - Final No growth in 5 days 05/20/18 03:10 Blood - Peripheral Anaerobic Blood Culture - Final No growth in 5 days 05/20/18 16:35 Sputum - Endotracheal Gram Stain - Final 05/20/18 16:35 Sputum - Endotracheal Sputum Culture - Final No growth in 48 hours 05/20/18 15:30 Nasal Wash Influenza Types A,B Antigen - Final Negative for FLU A and B antigen Infection due to influenza A or B cannot be ruled out since the antigen present in the sample may be below the detection limit of the test. Imaging: Abdomen X-Ray 05/20/18 02:10 CONCLUSION: Nonspecific, benign abdomen appearance. Abdomen/Pelvis CT 05/20/18 02:10 CONCLUSION: Rectal fecal impaction and likely mild proctitis Chest X-Ray 05/20/18 02:10 CONCLUSION: Negative examination. Chest X-Ray 05/20/18 05:29 CONCLUSION: Satisfactory endotracheal tube positioning. Slight bibasilar parenchymal opacities. Head CT 05/20/18 05:44 CONCLUSION: No acute intracranial findings . Chest X-Ray 05/20/18 08:57 CONCLUSION: 1. Left IJ central line in the mid SVC without pneumothorax. Head CT 05/21/18 19:41 CONCLUSION: 1. No acute findings. Stable exam since May 20. Chronic white matter ischemic changes. Retention cyst right maxillary sinus. . Chest X-Ray 05/23/18 06:00 CONCLUSION: Worsening bibasilar parenchymal consolidation. Interim extubation and nasogastric tube removal. Chest X-Ray 05/26/18 09:08 CONCLUSION: Improving bibasilar infiltrates and interstitial edema. Abdomen/Pelvis CTA 05/27/18 00:00 CONCLUSION: 1. There is severe atherosclerotic disease of the aorta. Atherosclerotic disease is present within the superior mesenteric artery but no high-grade stenosis or occlusion is visualized on the arterial side of the mesenteric vasculature. Please note that the venous mesenteric structures are not well evaluated on this examination timed for arterial enhancement. Additionally, there are no secondary findings to suggest mesenteric ischemia including no intramural air. 2. Wall thickening of the rectum suggesting a proctitis. 3. New small bilateral pleural effusions and new small volume of free fluid in the abdomen and pelvis. Also, anasarca is new. Chest X-Ray 05/28/18 23:38 CONCLUSION: 1. New right IJ line with tip at the atriocaval junction. No pneumothorax. 2. Mild atelectasis and tiny effusions at both lung bases not significantly changed. Chest X-Ray 05/29/18 00:00 CONCLUSION: No change mild atelectasis and small effusions at each lung base. Chest X-Ray 05/31/18 00:00 CONCLUSION: Stable chest x-ray with small bilateral pleural effusions with associated volume loss and/or airspace consolidation. Chest X-Ray 06/05/18 00:00 CONCLUSION: Mild parenchymal consolidation and small effusions at each lung base not significantly changed. Abdomen/Bladder Ultrasound 06/08/18 00:00 CONCLUSION: 1. Negative renal sonogram. No obstruction observed. Chest X-Ray 06/12/18 00:00 CONCLUSION: Unchanged bibasal infiltrates and small effusions. Venous Doppler Study 06/13/18 00:00 CONCLUSION: 1. The study is negative for bilateral lower extremity deep venous thrombosis. Chest X-Ray 06/17/18 00:00 CONCLUSION: Cardiomegaly with probable moderate congestive failure. There is some improvement from comparison. Chest X-Ray 06/18/18 11:48 CONCLUSION: 1. Persistent pulmonary edema pattern with probable small bilateral pleural effusions. Objective Remarks: GENERAL: 68-year-old female sitting [place] [facility] SKIN: Warm and dry. No rash HEAD: Atraumatic. Normocephalic. EYES: Pupils equal and round. No scleral icterus. ENT: No nasal bleeding or discharge. NECK: Trachea midline. No JVD. CARDIOVASCULAR: Regular rate and rhythm. S1, S2 no S4. 1/6 systolic murmur left sternal border. RESPIRATORY: Diminished air entry at the bases with bibasilar crackles bilateral expiratory wheezes use. GASTROINTESTINAL: Abdomen mildly distended, mild diffuse tenderness MUSCULOSKELETAL: Trace to 1+ edema bilateral lower extremities. NEUROLOGICAL: Alert awake strength appears equal symmetric.. Moves all extremities no focal deficits Assessment and Plan - Assessment and Plan Plan: Neuro/Psych: Metabolic encephalopathy Depression/anxiety disorder NOS Peripheral neuropathy Chronic benzodiazepine use on alprazolam 0.5 mg twice daily at home Currently lethargic due to hypercapnia will watch closely for airway protection Oxycodone/acetaminophen 10/325 1 to 2 tabs as needed for pain Dexmedetomidine drip if needed for BiPAP synchrony Continue renally dosed gabapentin currently 200 mg every [address] brain 05/20 and 05/21 revealed no acute intracranial findings CV: Mild pulmonary edema Essential hypertension Hyperlipidemia Questionable atrial septal defect on echocardiogram 04/18 2D echocardiogram time revealed EF 65%. LVH. Essentially normal pulmonary arterial pressures. Continue hydralazine 100 mg 3 times daily, carvedilol 25 mg twice daily and amlodipine 10 mg daily and furosemide 40 mg p.o. daily. Given 40 mg IV Lasix prior to transfer to ICU On atorvastatin 40 mg daily for dyslipidemia. Holding anticoagulation and antiplatelet therapy due to bleeding BNP >1000 Resp: Acute hypoxemic and hypercarbic respiratory failure Right lower lobe pneumonia COPD with acute exacerbation History of pulmonary embolism on chronic rivaroxaban Initiated on BiPAP 08/05. Currently he is a cannula 3 L Hold prednisone 2 mg twice daily continue methylprednisolone succinate wean to 40 mg every 8 hours Extubated 05/21 previously Albuterol/ipratropium aerosols every 4 hours with albuterol aerosols every 2 as needed for dyspnea Continue budesonide/formoterol 160/4.52 puffs twice daily GI/HEME: Ischemic colitis, colonoscopy 05/[address] Porter Severe erythematous gastritis, esophagitis on EGD 05/27 GI bleeding Fecal impaction, resolved Disimpacted in the ED. Hypoalbuminemia Elevated lipase of unclear significance Continue pantoprazole 40 mg twice daily N.p.o. except meds until respiratory rachel stabilizes. Speech therapy to evaluate today CT abdomen pelvis 05/27no pneumatosis. There is SMA atherosclerosis without high-grade stenosis. EGD and colonoscopy 05/27 demonstrated severe erythematous gastritis, esophagitis , diverticulitis, sigmoid ischemic colitis. Developed acute GI bleeding with hemorrhagic shock on 05/28 after receiving dose of Xarelto. Xarelto held since. . Endo: Hyperglycemia Chronic prednisone use -prednisone 10 mg twice daily. Bedside glucose every AC/at bedtime with medium dose insulin sliding scale aspart insulin as indicated. On insulin detemir 5 units at night FEN/Renal: Acute kidney injury History of anterior urethral stricture Baseline creatinine around 1.1. now 2.27 Nephrology following and continue furosemide 40 mg by mouth daily. 1 additional 40 mg IV x1 now.. Also on scheduled albumin 25 g every [address] abdomen/pelvis revealed no hydronephrosis. Negative urine eosinophils. Avoid nephrotoxic medication. ID: Healthcare associated pneumonia Sepsis Lisbeth glabrata UTI Start piperacillin/tazobactam and linezolid #2, check blood urine and sputum culture Urine culture 06/08/2018 had been positive for Lisbeth glabrata and patient had been on Diflucan (Even though C Glabrata) Repeat urine culture if positive for Lisbeth glabrata change to micafungin Access -PIV. Central line if indicated Prophylaxis -GI -pantoprazole 40 BID -DVT-SCD/holding pharmacological prophylaxis in light of GI bleed Level 2 follow-up.
[2018-06-19] MEDS: MethylPREDNISolone Sod Succinate Inj 40 MG/ML Vial IV.PUSH SCH ×2 (15:16→22:20)
[2018-06-19] MEDS ORDERED: ALPRAZolam 0.25 MG Tablet PO PRN (17:04)
--- NOTE | 2018-06-19 17:21 | P.PNNP ---
Subjective Interval history: Patient remains on BiPAP confused Physical Exam Vital signs: Vital Signs 06/18/18 18:00 06/18/18 19:18 06/18/18 19:30 Temperature Pulse Rate 74 69 Respiratory Rate 15 Blood Pressure Pulse Oximetry 100 100 06/18/18 20:00 06/18/18 22:00 06/18/18 23:13 Temperature 98.6 F Pulse Rate 70 59 L 77 Respiratory Rate 17 19 Blood Pressure 190/81 H Pulse Oximetry 100 06/19/18 00:00 06/19/18 00:30 06/19/18 01:30 Temperature 98.6 F Pulse Rate 61 58 L Respiratory Rate 11 L 11 L Blood Pressure 166/73 H 173/75 H Pulse Oximetry 99 99 99 06/19/18 02:00 06/19/18 02:30 06/19/18 03:00 Temperature Pulse Rate 60 66 67 Respiratory Rate 11 L 11 L 11 L Blood Pressure 176/72 H 167/70 H 174/74 H Pulse Oximetry 98 98 99 06/19/18 03:30 06/19/18 04:00 06/19/18 04:15 Temperature 98.7 F Pulse Rate 62 72 Respiratory Rate 11 L 12 Blood Pressure 176/74 H Pulse Oximetry 99 98 98 06/19/18 06:00 06/19/18 06:42 06/19/18 08:00 Temperature 98.5 F Pulse Rate 65 64 Respiratory Rate 11 L Blood Pressure 170/72 H Pulse Oximetry 99 99 06/19/18 08:06 06/19/18 10:00 06/19/18 11:39 Temperature Pulse Rate 69 10 L 82 Respiratory Rate 10 L 22 Blood Pressure Pulse Oximetry 98 06/19/18 11:52 06/19/18 15:25 06/19/18 15:36 Temperature Pulse Rate 92 H Respiratory Rate 26 H Blood Pressure Pulse Oximetry 95 97 Intake & Output 06/18/18 06/19/18 06/19/18 18:59 06:59 18:59 Intake Total 500 / 500 500 / 500 Output Total 800 / 800 2000 / 2000 Balance -300 / -300 -1500 / -1500 Weight 90.9 kg Intake: IV 500 / 500 500 / 500 Flexbumin 25% Inj 100 ML @ 60 150 / 150 100 / 100 mls/hr IV.SIG Q12H [facility] Rx#: [id number] Zyvox 600 mg Premix 300 ML @ 300 / 300 300 / 300 300 mls/hr IV.SIG Q12H [facility] Rx#: [id number] Zosyn 2.25 GM Premix 50 ML @ 50 / 50 100 / 100 100 mls/hr IV.SIG Q8H [facility] Rx#: [id number] Oral 0 / 0 0 / 0 Output: Urine 800 / 800 1999 / 1999 Other: Date of Last Bowel Movement 06/18/18 06/18/18 # Bowel Movements 1 Narrative: Chronically ill-appearing elderly female in NAD.Confused. SKIN: Cool and dry. Pale. HEENT: Pupils equal and round. Pale conjunctiva. Throat clear. NECK: Supple no tender LAD or JVD. HEART: RRR no m/r/g. LUNGS: Decreased air entry, BI basal crackles and Wheezes ABDOMEN: +BS, soft, nondistended. Obese and No organomegaly. EXTREMITIES: 1 + LE edema. Diminished pedal pulses. NEURO: Awake confused - Urinary Catheter Management Indwelling Urethral Catheter Cath placed during this visit: yes, but has since been removed by the nurse Reason for continuing: Continue criteria not met Insertion date: 06/08/18 Insertion time: 16:15 Removal date: 06/15/18 Removal time: 12:00 Assessment and Plan - Assessment (1) STEPHIE (acute kidney injury) Code(s): N17.9 - Acute kidney failure, unspecified Status: Deleted (2) GI bleed requiring more than 4 units of blood in 24 hours, ICU, or surgery Code(s): K92.2 - Gastrointestinal hemorrhage, unspecified Status: Acute (3) Anemia Code(s): D64.9 - Anemia, unspecified Status: Acute Qualifiers: Other causes of anemia: acute posthemorrhagic (4) Shock Code(s): R57.9 - Shock, unspecified Status: Acute (5) Sepsis Code(s): A41.9 - Sepsis, unspecified organism Status: Acute - Plan Patient had pneumonia, and back to ICU on Bipap Patient is in ARF on dilfucan/zyvox/zosyn Acute renal failure appears to be due to hypoperfusion of the kidney as a result of sepsis Creatinine 2.2. Given Lasix potassium replaced Try Bumex drip possibility of dialysis discussed with staff She did not responded to Lasix and creatinine did decline With attempt to diurese over the weekend see if she continues to improve Need to contact family and discuss the possibility of dialysis if conservative approach fails Follow BMP and the urine out put.
[2018-06-19] MEDS: Bumetanide Inj 25 MG/100 ML BAG IV.CONT SCH (18:24)
[2018-06-19] MEDS: traZODone 50 MG Tablet PO SCH (20:45)
[2018-06-20] MEDS: Morphine Inj 4 MG/ML Vial IV.PUSH PRN ×3 (00:58→08:55)
[2018-06-20] MEDS: Labetalol HCl Inj 100 MG/20 ML Vial IV.PUSH PRN ×4 (00:59→22:37)
[2018-06-20] MEDS: Gabapentin 100 MG Capsule PO SCH ×3 (01:00→18:34)
[2018-06-20] MEDS: hydrALAZINE HCl Inj 20 MG/ML Vial IV.PUSH PRN ×3 (03:23→23:24)
[2018-06-20] MEDS: Albumin Human 25% Inj 100 ML IV.SIG SCH ×2 (03:28→16:00)
--- NOTE | 2018-06-20 04:06 | XR ---
EXAM DATE: 06/20/2018 6:00 AM EDT AGE/SEX: 68 years / Female INDICATIONS: Shortness of breath, possible pulmonary disease. CLINICAL DATA: This is the patient's subsequent encounter. Patient reports that signs and symptoms h ave been present for 1 week and indicates a pain score of 0/10. MEDICAL/SURGICAL HISTORY: Chronic obstructive pulmonary disease. Hypertension. PE. Cholecyste ctomy. COMPARISON: [facility] [place], CHEST 1V SINGLE AP, 06/18/2018. . FINDINGS: A single AP view of the chest demonstrates cardiomegaly and bibasilar airspace disease. Osseous stru ctures are intact. CONCLUSION: 1. Bibasilar airspace disease. 2. Cardiomegaly Electronically signed by: Jack Marshall MD 06/20/2018 4:05 AM EDT
[2018-06-20] MEDS: MethylPREDNISolone Sod Succinate Inj 40 MG/ML Vial IV.PUSH SCH ×3 (05:07→21:08)
[2018-06-20] MEDS: Piperacil/Tazo 2.25 GM Premix 50 ML IV.SIG SCH ×3 (05:07→21:08)
[2018-06-20] MEDS: Furosemide 40 MG Tablet PO SCH (08:55)
[2018-06-20] MEDS: Mupirocin 2% Nasal Oint Topical Syringe EACH NARE SCH ×2 (08:55→20:23)
[2018-06-20] MEDS: Carvedilol 12.5 MG Tablet PO SCH ×2 (08:55→20:22)
[2018-06-20] MEDS: Senna/Docusate Sodium 8.6/50 MG Tablet PO SCH ×2 (08:56→20:23)
[2018-06-20] MEDS: Lactic Acid (Ammonium Lactate) 12% Lotion 225 GM Bottle TOPICAL SCH (08:57)
[2018-06-20] MEDS: Polyvinyl Alcohol/Povidone PF Opth Drops 0.4 ML Dropperette EACH EYE SCH ×2 (08:57→20:24)
[2018-06-20] MEDS: guaiFENesin 600 MG ER Tablet PO SCH ×2 (08:57→20:22)
[2018-06-20] MEDS: Budesonide-Formoterol 160/4.5 MCG 6 GM Inhaler INH SCH ×2 (08:58→20:24)
[2018-06-20] MEDS: Insulin NovoLOG Aspart Correctional Sugar Inj SQ SCH ×4 (08:58→21:08)
[2018-06-20] MEDS ORDERED: Insulin Detemir Inj 1,000 UNIT/10 ML Vial SQ SCH (09:45)
--- NOTE | 2018-06-20 09:48 | P.PNCC ---
Subjective Subjective Remarks/Hospital Course: 68-year-old female, with past medical history significant for COPD, PE, on blood thinners, presented initially with complaint of GI bleed. Per EMS report they were called to the snf for respiratory distress. On their arrival they state that she was not in respiratory distress but she was hypotensive with a systolic blood pressure in the 60s and delayed cap refill. Blood sugar was within normal limits. They noted dark bloody stools. They were able to secure an IV and route did give her about 350 cc of fluids prior to arrival. Her last blood pressure prior to arrival was in the 110s systolic. Patient was able to say that her abdomen hurts but was not answering too many more questions, she denied chest pain, shortness of breath. The CT of the abdomen showed only large amount of stool in the bowel and the patient passed a large volume of stool after manual disimpaction. Shortly after this she has lost consciousness, became unresponsive with GCS of 3 requiring emergent intubation for an airway protection by ED attending. 05/20: Patient still became more hypotensive. Receiving 2 units PRBCs and K Centra 4500 units x1 now. Minimal response on the ventilator. Did withdraw to vigorous stimuli/sternal rub. Afebrile. 05/21: Currently resting in bed in no acute distress. Plan for extubation today. Hemoglobins remained stable. 05/22: Afebrile. Currently on 8 L nasal cannula. Will provide 1 dose of bumetanide and attempt to diurese. Discontinue IV fluids. CT brain overnight revealed no acute intracranial findings. 05/29 Critical care medicine reconsulted for hemorrhagic shock. Patient underwent EGD/colonoscopy on 05/27 that demonstrated severe erythematous gastritis of gastric body and antrum, diverticulosis, large circumferential colitis in sigmoid colon. CTA 05/27 demonstrates atherosclerosis in the SMA without high-grade stenosis. She does have a history of pulmonary embolism that was treated with Xarelto. Her Xarelto had been on hold due to GI bleeding but was resumed today. This afternoon she began having large dark bowel movements with clots. She has crampy abdominal pain. She is nauseated but not vomiting. Hemoglobin dropped from 10.7 this morning to 7.[address] Castro has been consulted for evaluation of ischemic colitis. Upon his evaluation he found her hypotensive with a MAP of 50 and thus has requested critical care medicine consult due to hemorrhagic shock. I am placing art line and central line. She was started on Levophed 06/18: 68 years old female who has multiple medical problems as above, admitted since 05/19/18. [facility] reconsulted for acute respiratory distress and impending respiratory failure with hypoxia. Evaluated by Dr. Garner on the floor stat ABG showed ph 7.27, pC02 55, PO2 73 02 sat 91 on 5 L nasal cannula. Patient was in severe respiratory distress, IV Lasix 40 mg given and patient was transferred to ICU. I evaluated patient immediately. Patient is tachypneic lethargic but wakes up easily. Chest x-ray shows bibasilar right more than left infiltrates indicating probable pneumonia. I will initiated patient on BiPAP 12/5 titrate FiO2 to keep saturation more than 90%. I will also hold prednisone start IV Solu-Medrol 60 mg every 8 hours continue breathing treatments and Symbicort. Broad-spectrum antibiotics with Zosyn and Zyvox until cultures are back check sputum urine and blood culture 06/19: Currently on 3 L nasal cannula. X-ray appears to be pulmonary edema with small pleural effusion. Will give 1 additional dose of furosemide 40 mg IV x1 now. Creatinine slowly normalizing. Subjective 06/20: Intermittently on and off BiPAP. Currently on bumetanide drip at 0.5 mg an hour. Diuresing nicely 1800 cc past 24 hours. Intermittently confused. Tolerating diet. Blood sugars are elevated. Objective Vital Signs / I&O: Vital Signs 06/19/18 10:00 06/19/18 11:39 06/19/18 11:52 Temperature Pulse Rate 71 82 Respiratory Rate 22 Blood Pressure Pulse Oximetry 95 06/19/18 12:00 06/19/18 14:00 06/19/18 15:00 Temperature 99.2 F Pulse Rate 80 80 86 Respiratory Rate 16 19 Blood Pressure 168/74 H Pulse Oximetry 99 91 L 06/19/18 15:25 06/19/18 15:36 06/19/18 16:00 Temperature 99.0 F Pulse Rate 92 H 76 Respiratory Rate 26 H 13 Blood Pressure 102/96 H Pulse Oximetry 97 99 10/19/18 18:00 06/19/18 19:00 06/19/18 19:30 Temperature Pulse Rate 77 75 79 Respiratory Rate 15 16 Blood Pressure 161/71 H 177/71 H Pulse Oximetry 97 97 06/19/18 20:00 06/19/18 20:04 06/19/18 20:30 Temperature 99.3 F Pulse Rate 82 81 79 Respiratory Rate 20 18 15 Blood Pressure 177/72 H 195/73 H Pulse Oximetry 93 L 96 99 06/19/18 20:40 06/19/18 21:00 06/19/18 22:00 Temperature Pulse Rate 87 82 73 Respiratory Rate 36 H 30 H 17 Blood Pressure 161/71 H Pulse Oximetry 93 L 93 L 95 06/19/18 23:00 06/20/18 00:00 06/20/18 00:43 Temperature Pulse Rate 66 69 71 Respiratory Rate 21 18 16 Blood Pressure 175/74 H Pulse Oximetry 95 94 L 95 06/20/18 01:00 06/20/18 01:30 06/20/18 02:00 Temperature Pulse Rate 72 73 76 Respiratory Rate 15 17 16 Blood Pressure 163/71 H 164/73 H 164/67 H Pulse Oximetry 95 95 94 L 06/20/18 02:30 06/20/18 03:00 06/20/18 03:30 Temperature Pulse Rate 73 78 81 Respiratory Rate 16 18 37 H Blood Pressure 161/70 H 173/72 H 150/65 H Pulse Oximetry 94 L 94 L 95 06/20/18 04:00 06/20/18 04:07 06/20/18 06:00 Temperature 98.7 F Pulse Rate 87 83 70 Respiratory Rate 46 H 16 Blood Pressure 167/72 H Pulse Oximetry 94 L 95 06/20/18 08:00 06/20/18 08:46 Temperature Pulse Rate 81 81 Respiratory Rate 25 H Blood Pressure Pulse Oximetry 95 Intake & Output 06/19/18 06/20/18 06/20/18 18:59 06:59 18:59 Intake Total 410 / 410 983 / 983 Output Total 2325 / 2325 950 / 950 Balance -1914 / -1914 33 / 33 Weight 88.1 kg Intake: IV 350 / 350 623 / 623 Bumex Inj 25 mg In 100 ml @ 0.5 23 / 23 MG/HR 2 mls/hr IV.CONT .Q24H [facility] Rx#:[id number] Flexbumin 25% Inj 100 ML @ 60 200 / 200 mls/hr IV.SIG Q12H [facility] Rx#: [id number] Zyvox 600 mg Premix 300 ML @ 300 / 300 300 / 300 300 mls/hr IV.SIG Q12H [facility] Rx#: [id number] Zosyn 2.25 GM Premix 50 ML @ 50 / 50 100 / 100 100 mls/hr IV.SIG Q8H [facility] Rx#: [id number] Oral 30 / 30 360 / 360 Other 30 / 30 Output: Urine 950 / 950 Urine Amount (Catheter) 1750 / 1750 Indwelling Urethral Catheter 1750 / 1750 Urine Amount (Stoma) 525 / 525 Nephrostomy Tube 525 / 525 Gastric Drainage 50 / 50 Oral Orogastric Tube 50 / 50 Other: # Incontinent Voids 2 Date of Last Bowel Movement 06/18/18 06/19/18 06/19/18 # Bowel Movements 1 # Incontinent Bowel Movements 1 1 Result Diagrams: 06/18/18 05:24 06/19/18 11:20 Other Results: Microbiology 06/18/18 14:00 Blood - Peripheral Aerobic Blood Culture - Preliminary No growth in 1 day 06/18/18 14:00 Blood - Peripheral Anaerobic Blood Culture - Preliminary No growth in 1 day 06/18/18 13:54 Blood - Peripheral Aerobic Blood Culture - Preliminary No growth in 1 day 06/18/18 13:54 Blood - Peripheral Anaerobic Blood Culture - Preliminary No growth in 1 day 06/08/18 17:45 Catheterized Urine Urine Culture - Final Lisbeth glabrata 06/05/18 19:50 Blood - Peripheral Aerobic Blood Culture - Final No growth in 5 days 06/05/18 19:50 Blood - Peripheral Anaerobic Blood Culture - Final No growth in 5 days 06/05/18 19:58 Blood - Peripheral Aerobic Blood Culture - Final No growth in 5 days 06/05/18 19:58 Blood - Peripheral Anaerobic Blood Culture - Final No growth in 5 days 06/06/18 06:15 Catheterized Urine Urine Culture - Final Lisbeth glabrata 05/29/18 04:40 Blood - Peripheral Aerobic Blood Culture - Final No growth in 5 days 05/29/18 04:40 Blood - Peripheral Anaerobic Blood Culture - Final No growth in 5 days 05/29/18 04:40 Blood - Peripheral Aerobic Blood Culture - Final No growth in 5 days 05/29/18 04:40 Blood - Peripheral Anaerobic Blood Culture - Final No growth in 5 days 05/28/18 18:40 Stool Stool Occult Blood (SARAHI) - Final Hemoccult positive 05/20/18 03:15 Blood - Peripheral Aerobic Blood Culture - Final No growth in 5 days 05/20/18 03:15 Blood - Peripheral Anaerobic Blood Culture - Final No growth in 5 days 05/20/18 03:10 Blood - Peripheral Aerobic Blood Culture - Final No growth in 5 days 05/20/18 03:10 Blood - Peripheral Anaerobic Blood Culture - Final No growth in 5 days 05/20/18 16:35 Sputum - Endotracheal Gram Stain - Final 05/20/18 16:35 Sputum - Endotracheal Sputum Culture - Final No growth in 48 hours 05/20/18 15:30 Nasal Wash Influenza Types A,B Antigen - Final Negative for FLU A and B antigen Infection due to influenza A or B cannot be ruled out since the antigen present in the sample may be below the detection limit of the test. Imaging: Abdomen X-Ray 05/20/18 02:10 CONCLUSION: Nonspecific, benign abdomen appearance. Abdomen/Pelvis CT 05/20/18 02:10 CONCLUSION: Rectal fecal impaction and likely mild proctitis Chest X-Ray 05/20/18 02:10 CONCLUSION: Negative examination. Chest X-Ray 05/20/18 05:29 CONCLUSION: Satisfactory endotracheal tube positioning. Slight bibasilar parenchymal opacities. Head CT 05/20/18 05:44 CONCLUSION: No acute intracranial findings . Chest X-Ray 05/20/18 08:57 CONCLUSION: 1. Left IJ central line in the mid SVC without pneumothorax. Head CT 05/21/18 19:41 CONCLUSION: 1. No acute findings. Stable exam since May 20. Chronic white matter ischemic changes. Retention cyst right maxillary sinus. . Chest X-Ray 05/23/18 06:00 CONCLUSION: Worsening bibasilar parenchymal consolidation. Interim extubation and nasogastric tube removal. Chest X-Ray 05/26/18 09:08 CONCLUSION: Improving bibasilar infiltrates and interstitial edema. Abdomen/Pelvis CTA 05/27/18 00:00 CONCLUSION: 1. There is severe atherosclerotic disease of the aorta. Atherosclerotic disease is present within the superior mesenteric artery but no high-grade stenosis or occlusion is visualized on the arterial side of the mesenteric vasculature. Please note that the venous mesenteric structures are not well evaluated on this examination timed for arterial enhancement. Additionally, there are no secondary findings to suggest mesenteric ischemia including no intramural air. 2. Wall thickening of the rectum suggesting a proctitis. 3. New small bilateral pleural effusions and new small volume of free fluid in the abdomen and pelvis. Also, anasarca is new. Chest X-Ray 05/28/18 23:38 CONCLUSION: 1. New right IJ line with tip at the atriocaval junction. No pneumothorax. 2. Mild atelectasis and tiny effusions at both lung bases not significantly changed. Chest X-Ray 05/29/18 00:00 CONCLUSION: No change mild atelectasis and small effusions at each lung base. Chest X-Ray 05/31/18 00:00 CONCLUSION: Stable chest x-ray with small bilateral pleural effusions with associated volume loss and/or airspace consolidation. Chest X-Ray 06/05/18 00:00 CONCLUSION: Mild parenchymal consolidation and small effusions at each lung base not significantly changed. Abdomen/Bladder Ultrasound 06/08/18 00:00 CONCLUSION: 1. Negative renal sonogram. No obstruction observed. Chest X-Ray 06/12/18 00:00 CONCLUSION: Unchanged bibasal infiltrates and small effusions. Venous Doppler Study 06/13/18 00:00 CONCLUSION: 1. The study is negative for bilateral lower extremity deep venous thrombosis. Chest X-Ray 06/17/18 00:00 CONCLUSION: Cardiomegaly with probable moderate congestive failure. There is some improvement from comparison. Chest X-Ray 06/18/18 11:48 CONCLUSION: 1. Persistent pulmonary edema pattern with probable small bilateral pleural effusions. Chest X-Ray 06/20/18 06:00 CONCLUSION: 1. Bibasilar airspace disease. 2. Cardiomegaly Objective Remarks: GENERAL: 68-year-old female sitting up in [facility] bed. SKIN: Warm and dry. No rash HEAD: Atraumatic. Normocephalic. EYES: Pupils equal and round. No scleral icterus. ENT: No nasal bleeding or discharge. NECK: Trachea midline. No JVD. CARDIOVASCULAR: Regular rate and rhythm. S1, S2 no S4. 1/6 systolic murmur left sternal border. RESPIRATORY: Diminished air entry at the bases with bibasilar crackles bilateral expiratory wheezes use. GASTROINTESTINAL: Abdomen mildly distended, mild diffuse tenderness MUSCULOSKELETAL: Trace to 1+ edema bilateral lower extremities. NEUROLOGICAL: Alert awake strength appears equal symmetric.. Moves all extremities spontaneously. No focal neurological deficits. Assessment and Plan - Assessment and Plan Plan: Neuro/Psych: Metabolic encephalopathy Depression/anxiety disorder NOS Peripheral neuropathy Chronic benzodiazepine use on alprazolam 0.5 mg twice daily at home Currently lethargic due to hypercapnia will watch closely for airway protection Oxycodone/acetaminophen 10/325 1 to 2 tabs as needed for pain Dexmedetomidine drip if needed for BiPAP synchrony Continue renally dosed gabapentin currently 200 mg every [address] brain 05/20 and 05/21 revealed no acute intracranial findings Alprazolam 0.25 mg every 6 hours as needed anxiety. CV: Mild pulmonary edema Essential hypertension Hyperlipidemia Questionable atrial septal defect on echocardiogram 04/18 2D echocardiogram time revealed EF 65%. LVH. Essentially normal pulmonary arterial pressures. Continue hydralazine 100 mg 3 times daily, carvedilol 25 mg twice daily and amlodipine 10 mg daily and furosemide 40 mg p.o. daily. Started on bumetanide drip at 0.5 mg/h per nephrology attempt to diurese. On atorvastatin 40 mg daily for dyslipidemia. Holding anticoagulation and antiplatelet therapy due to bleeding BNP >1000 Resp: Acute hypoxemic and hypercarbic respiratory failure Right lower lobe pneumonia COPD with acute exacerbation History of pulmonary embolism on chronic rivaroxaban Initiated on BiPAP 08/05. Currently she is on cannula 4 L Hold prednisone 20 mg twice daily continue methylprednisolone succinate wean to 40 mg every 8 hours Extubated 05/21 previously Albuterol/ipratropium aerosols every 6 hours with albuterol aerosols every 2 as needed for dyspnea Continue budesonide/formoterol 160/4.5 2 puffs twice daily GI/HEME: Ischemic colitis, colonoscopy 05/[address] Porter Severe erythematous gastritis, esophagitis on EGD 05/27 GI bleeding Fecal impaction, resolved Disimpacted in the ED. Hypoalbuminemia Elevated lipase of unclear significance Continue pantoprazole 40 mg twice daily ADA diet 2000/mechanical soft with chopped meats CT abdomen pelvis 05/27no pneumatosis. There is SMA atherosclerosis without high-grade stenosis. EGD and colonoscopy 05/27 demonstrated severe erythematous gastritis, esophagitis , diverticulitis, sigmoid ischemic colitis. Developed acute GI bleeding with hemorrhagic shock on 05/28 after receiving dose of Xarelto. Xarelto held since. . Endo: Hyperglycemia Chronic prednisone use -prednisone 10 mg twice daily. Bedside glucose every AC/at bedtime with medium dose insulin sliding scale aspart insulin as indicated. On insulin detemir 10 units subcu twice daily will be started today FEN/Renal: Acute kidney injury History of anterior urethral stricture Baseline creatinine around 1.1. Today 2.27. This a.m. is pending. Nephrology following and switched to bumetanide drip at 0.5 mg an hour. Also on scheduled albumin [address] every [address] abdomen/pelvis revealed no hydronephrosis. Negative urine eosinophils. Avoid nephrotoxic medication. ID: Healthcare associated pneumonia Sepsis Lisbeth glabrata UTI Start piperacillin/tazobactam and linezolid #3, check blood urine and sputum culture Urine culture 06/08/2018 had been positive for Lisbeth glabrata and patient had been on Diflucan (Even though C Glabrata) Repeat urine culture if positive for Lisbeth glabrata change to micafungin Access -PIV. Central line if indicated Prophylaxis -GI -pantoprazole 40 BID -DVT-SCD/holding pharmacological prophylaxis in light of GI bleed Level 2 follow-up.
--- NOTE | 2018-06-20 12:01 | P.PNNP ---
Subjective Interval history: Patient lethargic Physical Exam Vital signs: Vital Signs 06/19/18 12:00 06/19/18 14:00 06/19/18 15:00 Temperature 99.2 F Pulse Rate 80 80 86 Respiratory Rate 16 19 Blood Pressure 168/74 H Pulse Oximetry 99 91 L 06/19/18 15:25 06/19/18 15:36 06/19/18 16:00 Temperature 99.0 F Pulse Rate 92 H 76 Respiratory Rate 26 H 13 Blood Pressure 102/96 H Pulse Oximetry 97 99 06/19/18 18:00 06/19/18 19:00 06/19/18 19:30 Temperature Pulse Rate 77 75 79 Respiratory Rate 15 16 Blood Pressure 161/71 H 177/71 H Pulse Oximetry 97 97 06/19/18 20:00 06/19/18 20:04 06/19/18 20:30 Temperature 99.3 F Pulse Rate 82 81 79 Respiratory Rate 20 18 15 Blood Pressure 177/72 H 195/73 H Pulse Oximetry 93 L 96 99 06/19/18 20:40 06/19/18 21:00 06/19/18 22:00 Temperature Pulse Rate 87 82 73 Respiratory Rate 36 H 30 H 17 Blood Pressure 161/71 H Pulse Oximetry 93 L 93 L 95 06/19/18 23:00 06/20/18 00:00 06/20/18 00:43 Temperature Pulse Rate 66 69 71 Respiratory Rate 21 18 16 Blood Pressure 175/74 H Pulse Oximetry 95 94 L 95 06/20/18 01:00 06/20/18 01:30 06/20/18 02:00 Temperature Pulse Rate 72 73 76 Respiratory Rate 15 17 16 Blood Pressure 163/71 H 164/73 H 164/67 H Pulse Oximetry 95 95 94 L 06/20/18 02:30 06/20/18 03:00 06/20/18 03:30 Temperature Pulse Rate 73 78 81 Respiratory Rate 16 18 37 H Blood Pressure 161/70 H 173/72 H 150/65 H Pulse Oximetry 94 L 94 L 95 06/20/18 04:00 06/20/18 04:07 06/20/18 06:00 Temperature 98.7 F Pulse Rate 87 83 70 Respiratory Rate 46 H 16 Blood Pressure 167/72 H Pulse Oximetry 94 L 95 06/20/18 08:00 06/20/18 08:46 06/20/18 09:00 Temperature 99 F Pulse Rate 81 81 61 Respiratory Rate 26 H 25 H Blood Pressure 169/71 H Pulse Oximetry 98 95 06/20/18 10:00 06/20/18 11:54 Temperature Pulse Rate 75 74 Respiratory Rate 18 Blood Pressure Pulse Oximetry Intake & Output 06/19/18 06/20/18 06/20/18 18:59 06:59 18:59 Intake Total 410 / 410 983 / 983 Output Total 2325 / 2325 950 / 950 Balance -1915 / -1915 33 / 33 Weight 88.1 kg Intake: IV 350 / 350 623 / 623 Bumex Inj 25 mg In 100 ml @ 0.5 23 / 23 MG/HR 2 mls/hr IV.CONT .Q24H [facility] Rx#:[id number] Flexbumin 25% Inj 100 ML @ 60 200 / 200 mls/hr IV.SIG Q12H [facility] Rx#: [id number] Zyvox 600 mg Premix 300 ML @ 300 / 300 300 / 300 300 mls/hr IV.SIG Q12H [facility] Rx#: [id number] Zosyn 2.25 GM Premix 50 ML @ 50 / 50 100 / 100 100 mls/hr IV.SIG Q8H [facility] Rx#: [id number] Oral 30 / 30 360 / 360 Other 30 / 30 Output: Urine 950 / 950 Urine Amount (Catheter) 1750 / 1750 Indwelling Urethral Catheter 1750 / 1750 Urine Amount (Stoma) 525 / 525 Nephrostomy Tube 525 / 525 Gastric Drainage 50 / 50 Oral Orogastric Tube 50 / 50 Other: # Incontinent Voids 2 Date of Last Bowel Movement 06/18/18 06/19/18 06/19/18 # Bowel Movements 1 # Incontinent Bowel Movements 1 1 - Constitutional no acute distress - Routine HEENT Exam Head: Present: normocephalic Eye: Present: EOMI ENT: Present: mucous membranes moist - Routine Neck Exam Present: supple - Routine Respiratory Exam Present: decreased breath sounds - Routine Cardiovascular Exam Present: RRR - Routine Abdominal Exam Present: soft - Routine Extremities Exam Present: pulses intact - Routine Skin Exam Present: intact - Routine Neurological Exam Present: alert - Routine Psychiatric Exam Present: unable to assess - Urinary Catheter Management Indwelling Urethral Catheter Cath placed during this visit: yes, but has since been removed by the nurse Reason for continuing: Continue criteria not met Insertion date: 06/08/18 Insertion time: 16:15 Removal date: 06/15/18 Removal time: 12:00 Assessment and Plan - Assessment (1) STEPHIE (acute kidney injury) Code(s): N17.9 - Acute kidney failure, unspecified Status: Deleted (2) GI bleed requiring more than 4 units of blood in 24 hours, ICU, or surgery Code(s): K92.2 - Gastrointestinal hemorrhage, unspecified Status: Acute (3) Anemia Code(s): D64.9 - Anemia, unspecified Status: Acute Qualifiers: Other causes of anemia: acute posthemorrhagic (4) Shock Code(s): R57.9 - Shock, unspecified Status: Acute (5) Sepsis Code(s): A41.9 - Sepsis, unspecified organism Status: Acute - Plan Patient had pneumonia, and back to ICU on Bipap Patient is in ARF on dilfucan/zyvox/zosyn Acute renal failure appears to be due to hypoperfusion of the kidney as a result of sepsis Creatinine 2.2. Given Lasix potassium replaced Try Bumex drip possibility of dialysis discussed with staff She did not responded to Lasix and creatinine did decline --- Patient on bumex 0.5mg/hour and albumin, with 1.7L UOP/24 hours Creatinine 2.2 yesterday K 3.3 yesterday, Na 147 yesterday Will recheck labs, continue on bumex drip for now. Need to contact family and discuss the possibility of dialysis if conservative approach fails Follow BMP and the urine out put.
[2018-06-20 13:19] LABS: Baso % (Auto) 0.4 % (0.0-2.0); Eos % (Auto) 0.1 % (0.0-4.0); Hematocrit 25.8 % (35.0-46.0); Hemoglobin 8.4 gm/dL (11.6-15.3); Lymph # (Auto) 0.6 th/mm3 (1.0-4.8); Lymph % (Auto) 4.4 % (9.0-44.0); Mean Corpuscular HGB Conc 32.5 % (32.0-36.0); Mean Corpuscular Hemoglobin 29.2 pg (27.0-34.0); Mean Corpuscular Volume 89.9 fL (80.0-100.0); Mono # (Auto) 0.4 th/mm3 (0.0-0.9); Neut # (Auto) 11.9 th/mm3 (1.8-7.7); Neut % (Auto) 92.1 % (16.0-70.0); Platelet Count 297 th/mm3 (150-450); Red Blood Count 2.88 mil/mm3 (4.00-5.30); White Blood Count 12.9 th/mm3 (4.0-11.0)
[2018-06-20 13:51] LABS: Alanine Aminotransferase 18 U/L (10-53); Albumin 4.2 g/dL (3.4-5.0); Alkaline Phosphatase 82 U/L (45-117); Anion Gap 12 meq/L (5-15); Aspartate Aminotransferase 6 U/L (15-37); Blood Urea Nitrogen 70 mg/dL (7-18); Chloride 108 meq/L (98-107); Glomerular Filtration Rate 19 mL/min (>89); Glucose,Random 284 mg/dL (74-106); Magnesium 2.5 mg/dL (1.5-2.5); Phosphorus 3.1 mg/dL (2.5-4.9); Sodium 148 meq/L (136-145); Total Protein 6.6 g/dL (6.4-8.2)
[2018-06-20 13:57] LABS: Potassium 2.8 meq/L (3.5-5.1)
[2018-06-20 13:58] LABS: Lymphocytes 5 % (9-44); Metamyelocytes 1 % (0-1); Monocytes 3 % (0-8); Myelocytes 2 % (0-0); Platelet Estimate Normal (Normal)
[2018-06-20 13:59] LABS: Ovalocytes 1+
[2018-06-20] MEDS ORDERED: Potassium Chloride 25 MEQ Effervescent Tablet PO ONE (14:30)
--- NOTE | 2018-06-20 14:59 | P.PN ---
Subjective Interval history: ALERT NO SOB Physical Exam Vital signs: Vital Signs 06/19/18 15:00 06/19/18 15:25 06/19/18 15:36 Temperature Pulse Rate 86 92 H Respiratory Rate 19 26 H Blood Pressure Pulse Oximetry 91 L 97 06/19/18 16:00 06/19/18 18:00 06/19/18 19:00 Temperature 99.0 F Pulse Rate 76 77 75 Respiratory Rate 13 15 Blood Pressure 102/96 H 161/71 H Pulse Oximetry 99 97 06/19/18 19:30 06/19/18 20:00 06/19/18 20:04 Temperature 99.3 F Pulse Rate 79 82 81 Respiratory Rate 16 20 18 Blood Pressure 177/71 H 177/72 H Pulse Oximetry 97 93 L 96 06/19/18 20:30 06/19/18 20:40 06/19/18 21:00 Temperature Pulse Rate 79 87 82 Respiratory Rate 15 36 H 30 H Blood Pressure 195/73 H 161/71 H Pulse Oximetry 99 93 L 93 L 06/19/18 22:00 06/19/18 23:00 06/20/18 00:00 Temperature Pulse Rate 73 66 69 Respiratory Rate 17 21 18 Blood Pressure Pulse Oximetry 95 95 94 L 06/20/18 00:43 06/20/18 01:00 06/20/18 01:30 Temperature Pulse Rate 71 72 73 Respiratory Rate 16 15 17 Blood Pressure 175/74 H 163/71 H 164/73 H Pulse Oximetry 95 95 95 06/20/18 02:00 06/20/18 02:30 06/20/18 03:00 Temperature Pulse Rate 76 73 78 Respiratory Rate 16 16 18 Blood Pressure 164/67 H 161/70 H 173/72 H Pulse Oximetry 94 L 94 L 94 L 06/20/18 03:30 06/20/18 04:00 06/20/18 04:07 Temperature 98.7 F Pulse Rate 81 87 83 Respiratory Rate 37 H 46 H 16 Blood Pressure 150/65 H 167/72 H Pulse Oximetry 95 94 L 95 06/20/18 06:00 06/20/18 07:00 06/20/18 07:15 Temperature Pulse Rate 70 72 69 Respiratory Rate 14 15 Blood Pressure 169/71 H Pulse Oximetry 95 94 L 06/20/18 07:30 06/20/18 07:45 06/20/18 08:00 Temperature 99 F Pulse Rate 81 69 72 Respiratory Rate 13 14 13 Blood Pressure 180/74 H Pulse Oximetry 97 98 98 06/20/18 08:15 06/20/18 08:30 06/20/18 08:45 Temperature Pulse Rate 78 75 82 Respiratory Rate 17 15 20 Blood Pressure Pulse Oximetry 97 95 96 06/20/18 08:46 06/20/18 09:00 06/20/18 09:15 Temperature Pulse Rate 81 84 78 Respiratory Rate 25 H 33 H 15 Blood Pressure 167/78 H Pulse Oximetry 95 95 92 L 06/20/18 09:30 06/20/18 09:45 06/20/18 10:00 Temperature Pulse Rate 76 77 74 Respiratory Rate 15 15 14 Blood Pressure 176/70 H Pulse Oximetry 91 L 92 L 94 L 06/20/18 10:15 06/20/18 10:30 06/20/18 10:45 Temperature Pulse Rate 74 76 78 Respiratory Rate 14 15 15 Blood Pressure Pulse Oximetry 95 94 L 96 06/20/18 11:00 06/20/18 11:15 06/20/18 11:30 Temperature Pulse Rate 75 69 91 H Respiratory Rate 15 14 29 H Blood Pressure 160/72 H Pulse Oximetry 96 96 90 L 06/20/18 11:45 06/20/18 11:54 06/20/18 12:00 Temperature 98.4 F Pulse Rate 77 74 77 Respiratory Rate 30 H 18 19 Blood Pressure 163/102 H Pulse Oximetry 97 98 06/20/18 12:05 06/20/18 12:46 Temperature Pulse Rate 79 70 Respiratory Rate 32 H 22 Blood Pressure 202/83 H Pulse Oximetry 98 Intake & Output 06/19/18 06/20/18 06/20/18 18:59 06:59 18:59 Intake Total 410 / 410 983 / 983 Output Total 2325 / 2325 950 / 950 Balance -1914 / -1915 33 / 33 Weight 88.1 kg Intake: IV 350 / 350 623 / 623 Bumex Inj 25 mg In 100 ml @ 0.5 23 / 23 MG/HR 2 mls/hr IV.CONT .Q24H [facility] Rx#:[id number] Flexbumin 25% Inj 100 ML @ 60 200 / 200 mls/hr IV.SIG Q12H [facility] Rx#: [id number] Zyvox 600 mg Premix 300 ML @ 300 / 300 300 / 300 300 mls/hr IV.SIG Q12H [facility] Rx#: [id number] Zosyn 2.25 GM Premix 50 ML @ 50 / 50 100 / 100 100 mls/hr IV.SIG Q8H [facility] Rx#: [id number] Oral 30 / 30 360 / 360 Other 30 / 30 Output: Urine 950 / 950 Urine Amount (Catheter) 1750 / 1750 Indwelling Urethral Catheter 1750 / 1750 Urine Amount (Stoma) 525 / 525 Nephrostomy Tube 525 / 525 Gastric Drainage 50 / 50 Oral Orogastric Tube 50 / 50 Other: # Incontinent Voids 2 Date of Last Bowel Movement 06/18/18 06/19/18 06/19/18 # Bowel Movements 1 # Incontinent Bowel Movements 1 1 Narrative: Chronically ill-appearing elderly female in NAD.Confused. SKIN: Cool and dry. Pale. HEENT: Pupils equal and round. Pale conjunctiva. Throat clear. NECK: Supple no tender LAD or JVD. HEART: RRR no m/r/g. LUNGS: Decreased air entry, BI basal crackles and Wheezes ABDOMEN: +BS, soft, nondistended. Obese and No organomegaly. EXTREMITIES: 1 + LE edema. Diminished pedal pulses. NEURO: Awake confused - Urinary Catheter Management Indwelling Urethral Catheter Cath placed during this visit: yes, but has since been removed by the nurse Reason for continuing: Continue criteria not met Insertion date: 06/08/18 Insertion time: 16:15 Removal date: 06/15/18 Removal time: 12:00 Results - Labs CBC & Chem 7: 06/20/18 12:41 06/20/18 12:41 Laboratory Results - last 24 hr 06/19/18 06/19/18 06/19/18 19:35 20:55 22:27 WBC RBC Hgb Hct MCV MCH MCHC RDW Plt Count MPV Prelim Diff (Auto) Neut % (Auto) Lymph % (Auto) [place] % (Auto) Eos % (Auto) Baso % (Auto) Neut # (Auto) Lymph # (Auto) [place] # (Auto) Eos # (Auto) Baso # (Auto) WBC Differential Seg Neuts % (Manual) Band Neuts % (Manual) Lymphocytes % (Manual) Monocytes % (Manual) Metamyelocytes % (Man) Myelocytes % (Man) Abs Neuts (Manual) Differential Comment Platelet Estimate Platelet Morphology Ovalocytes Sodium Potassium Chloride Carbon Dioxide Anion Gap BUN Creatinine Estimated GFR POC Glucose 352 H 321 H Random Glucose Calcium Phosphorus Magnesium Total Bilirubin AST ALT Alkaline Phosphatase Total Protein Albumin Nasal Screen MRSA (PCR) Not detected 06/20/18 06/20/18 06/20/18 01:07 08:44 11:21 WBC RBC Hgb Hct MCV MCH MCHC RDW Plt Count MPV Prelim Diff (Auto) Neut % (Auto) Lymph % (Auto) [place] % (Auto) Eos % (Auto) Baso % (Auto) Neut # (Auto) Lymph # (Auto) [place] # (Auto) Eos # (Auto) Baso # (Auto) WBC Differential Seg Neuts % (Manual) Band Neuts % (Manual) Lymphocytes % (Manual) Monocytes % (Manual) Metamyelocytes % (Man) Myelocytes % (Man) Abs Neuts (Manual) Differential Comment Platelet Estimate Platelet Morphology Ovalocytes Sodium Potassium Chloride Carbon Dioxide Anion Gap BUN Creatinine Estimated GFR POC Glucose 328 H 398 H 359 H Random Glucose Calcium Phosphorus Magnesium Total Bilirubin AST ALT Alkaline Phosphatase Total Protein Albumin Nasal Screen MRSA (PCR) 06/20/18 06/20/18 06/20/18 11:22 12:41 12:41 WBC 12.9 H RBC 2.88 L Hgb 8.4 L Hct 25.8 L MCV 89.9 MCH 29.2 MCHC 32.5 RDW 17.0 Plt Count 297 MPV 9.0 Prelim Diff (Auto) Slide review pending Neut % (Auto) 92.1 H Lymph % (Auto) 4.4 L [place] % (Auto) 3.0 Eos % (Auto) 0.1 Baso % (Auto) 0.4 Neut # (Auto) 11.9 H Lymph # (Auto) 0.6 L [place] # (Auto) 0.4 Eos # (Auto) 0.0 Baso # (Auto) 0.0 WBC Differential Manual diff final Seg Neuts % (Manual) 86 H Band Neuts % (Manual) 3 Lymphocytes % (Manual) 5 L Monocytes % (Manual) 3 Metamyelocytes % (Man) 1 Myelocytes % (Man) 2 H Abs Neuts (Manual) 11.9 H Differential Comment . Platelet Estimate Normal Platelet Morphology Enlarged H Ovalocytes 1+ H Sodium 148 H Potassium 2.8 L* Chloride 108 H Carbon Dioxide 28.0 Anion Gap 12 BUN 70 H Creatinine 2.49 H Estimated GFR 19 L POC Glucose 377 H Random Glucose 284 H Calcium 9.0 Phosphorus 3.1 Magnesium 2.5 Total Bilirubin 0.6 AST 6 L ALT 18 Alkaline Phosphatase 82 Total Protein 6.6 Albumin 4.2 Nasal Screen MRSA (PCR) Microbiology 06/18/18 14:00 Blood - Peripheral Aerobic Blood Culture - Preliminary No growth in 2 days 06/18/18 14:00 Blood - Peripheral Anaerobic Blood Culture - Preliminary No growth in 2 days 06/18/18 13:54 Blood - Peripheral Aerobic Blood Culture - Preliminary No growth in 2 days 06/18/18 13:54 Blood - Peripheral Anaerobic Blood Culture - Preliminary No growth in 2 days - Imaging Impressions Chest X-Ray 06/20/18 06:00 CONCLUSION: 1. Bibasilar airspace disease. 2. Cardiomegaly - Procedures central line placement. Assessment and Plan - Plan RESPIRATORY FAILURE PNA PLAN O2 NEEDED/BIPAP ANTIBX INCREASE ACTIVITY
[2018-06-20] MEDS ORDERED: Clevidipine Inj 25 MG/50 ML VIAL IV.CONT PRN (17:13)
[2018-06-20] MEDS: Morphine Sulfate Inj 2 MG/ML Vial IV.PUSH PRN ×2 (18:34→21:40)
[2018-06-20] MEDS: Bumetanide Inj 25 MG/100 ML BAG IV.CONT SCH (18:48)
[2018-06-20] MEDS: traZODone 50 MG Tablet PO SCH (20:23)
[2018-06-21] MEDS: Labetalol HCl Inj 100 MG/20 ML Vial IV.PUSH PRN ×4 (00:05→09:11)
[2018-06-21] MEDS: Morphine Sulfate Inj 2 MG/ML Vial IV.PUSH PRN ×2 (00:13→04:59)
[2018-06-21] MEDS: Gabapentin 100 MG Capsule PO SCH ×3 (01:42→17:22)
[2018-06-21] MEDS: Albumin Human 25% Inj 100 ML IV.SIG SCH ×2 (03:38→15:56)
--- NOTE | 2018-06-21 03:54 | XR ---
EXAM DATE: 06/21/2018 6:00 AM EDT AGE/SEX: 68 years / Female INDICATIONS: Shortness of breath, possible pulmonary disease. CLINICAL DATA: This is the patient's subsequent encounter. Patient reports that signs and symptoms h ave been present for 1 week and indicates a pain score of Nonresponsive. MEDICAL/SURGICAL HISTORY: Chronic obstructive pulmonary disease. Hypertension. PE. Cholecyste ctomy. COMPARISON: [facility] – [place], CHEST 1V SINGLE AP, 06/20/2018. . FINDINGS: A single AP view of the chest demonstrates bibasilar densities. Heart mildly enlarged. Upper lungs ar e clear. Osseous structures are intact. CONCLUSION: Persistent bibasilar consolidation. Electronically signed by: Jack Marshall MD 06/21/2018 3:52 AM EDT
[2018-06-21] MEDS: MethylPREDNISolone Sod Succinate Inj 40 MG/ML Vial IV.PUSH SCH ×2 (05:00→20:43)
[2018-06-21] MEDS: Piperacil/Tazo 2.25 GM Premix 50 ML IV.SIG SCH ×3 (05:00→22:13)
[2018-06-21] MEDS: hydrALAZINE HCl Inj 20 MG/ML Vial IV.PUSH PRN ×2 (05:04→22:13)
[2018-06-21 07:43] LABS: Alanine Aminotransferase 17 U/L (10-53); Albumin 4.3 g/dL (3.4-5.0); Alkaline Phosphatase 65 U/L (45-117); Anion Gap 12 meq/L (5-15); Aspartate Aminotransferase 12 U/L (15-37); Blood Urea Nitrogen 74 mg/dL (7-18); Calcium 8.8 mg/dL (8.5-10.1); Carbon Dioxide 30.3 meq/L (21.0-32.0); Chloride 104 meq/L (98-107); Glomerular Filtration Rate 20 mL/min (>89); Glucose,Random 317 mg/dL (74-106); Magnesium 2.3 mg/dL (1.5-2.5); Phosphorus 3.7 mg/dL (2.5-4.9); Potassium 3.6 meq/L (3.5-5.1); Sodium 146 meq/L (136-145); Total Protein 6.5 g/dL (6.4-8.2)
[2018-06-21] MEDS: Carvedilol 12.5 MG Tablet PO SCH ×2 (08:33→20:41)
[2018-06-21] MEDS: Mupirocin 2% Nasal Oint Topical Syringe EACH NARE SCH ×2 (08:34→20:41)
[2018-06-21] MEDS: guaiFENesin 600 MG ER Tablet PO SCH ×2 (08:34→20:40)
[2018-06-21] MEDS: Senna/Docusate Sodium 8.6/50 MG Tablet PO SCH ×2 (08:34→20:41)
[2018-06-21] MEDS: Insulin NovoLOG Aspart Correctional Sugar Inj SQ SCH ×4 (08:45→20:42)
[2018-06-21] MEDS: Lactic Acid (Ammonium Lactate) 12% Lotion 225 GM Bottle TOPICAL SCH (08:46)
[2018-06-21] MEDS: Budesonide-Formoterol 160/4.5 MCG 6 GM Inhaler INH SCH ×2 (08:46→20:43)
[2018-06-21] MEDS: Polyvinyl Alcohol/Povidone PF Opth Drops 0.4 ML Dropperette EACH EYE SCH ×2 (08:48→20:44)
[2018-06-21 09:18] LABS: Baso % (Auto) 0.3 % (0.0-2.0); Hematocrit 24.7 % (35.0-46.0); Hemoglobin 8.4 gm/dL (11.6-15.3); Lymph # (Auto) 0.5 th/mm3 (1.0-4.8); Lymph % (Auto) 3.5 % (9.0-44.0); Mean Corpuscular HGB Conc 33.9 % (32.0-36.0); Mean Corpuscular Hemoglobin 30.1 pg (27.0-34.0); Mean Corpuscular Volume 88.8 fL (80.0-100.0); Mean Platelet Volume 9.1 fL (7.0-11.0); Mono # (Auto) 0.4 th/mm3 (0.0-0.9); Mono % (Auto) 3.2 % (0.0-8.0); Neut # (Auto) 12.1 th/mm3 (1.8-7.7); Platelet Count 265 th/mm3 (150-450); Red Blood Count 2.78 mil/mm3 (4.00-5.30); Red Cell Distribution Width 17.2 % (11.6-17.2)
[2018-06-21 10:14] LABS: Lymphocytes 3 % (9-44); Metamyelocytes 4 % (0-1); Monocytes 2 % (0-8); Ovalocytes 1+; Platelet Estimate Normal (Normal); Platelet Morphology Normal (Normal)
--- NOTE | 2018-06-21 10:44 | P.PNNP ---
Subjective Interval history: remains tired, increased UOP Physical Exam Vital signs: Vital Signs 06/20/18 10:45 06/20/18 11:00 06/20/18 11:15 Temperature Pulse Rate 78 75 69 Respiratory Rate 15 15 14 Blood Pressure 160/72 H Pulse Oximetry 96 96 96 06/20/18 11:30 06/20/18 11:45 06/20/18 11:54 Temperature Pulse Rate 91 H 77 74 Respiratory Rate 29 H 30 H 18 Blood Pressure 163/102 H Pulse Oximetry 90 L 97 06/20/18 12:00 06/20/18 12:05 06/20/18 12:15 Temperature 98.4 F Pulse Rate 77 79 72 Respiratory Rate 19 32 H 26 H Blood Pressure 202/83 H 198/82 H Pulse Oximetry 98 98 98 06/20/18 12:28 06/20/18 12:30 06/20/18 12:45 Temperature Pulse Rate 75 69 70 Respiratory Rate 27 H 25 H 25 H Blood Pressure 184/75 H Pulse Oximetry 98 98 98 06/20/18 12:46 06/20/18 13:00 06/20/18 13:15 Temperature Pulse Rate 70 64 64 Respiratory Rate 22 19 21 Blood Pressure 171/84 H Pulse Oximetry 95 96 06/20/18 13:30 06/20/18 13:45 06/20/18 14:00 Temperature Pulse Rate 64 62 63 Respiratory Rate 23 21 23 Blood Pressure 183/81 H Pulse Oximetry 95 96 94 L 06/20/18 14:15 06/20/18 14:30 06/20/18 14:45 Temperature Pulse Rate 68 71 64 Respiratory Rate 14 16 22 Blood Pressure 182/88 H 184/78 H Pulse Oximetry 96 96 96 06/20/18 15:00 06/20/18 15:15 06/20/18 15:30 Temperature Pulse Rate 63 64 65 Respiratory Rate 24 22 22 Blood Pressure 150/64 H Pulse Oximetry 96 97 97 06/20/18 15:45 06/20/18 15:50 06/20/18 15:52 Temperature Pulse Rate 66 63 Respiratory Rate 24 18 Blood Pressure Pulse Oximetry 96 06/20/18 16:00 06/20/18 16:15 06/20/18 16:30 Temperature 98.5 F Pulse Rate 68 66 65 Respiratory Rate 20 13 24 Blood Pressure 167/72 H Pulse Oximetry 96 98 97 06/20/18 16:45 06/20/18 17:00 06/20/18 17:01 Temperature Pulse Rate 69 64 64 Respiratory Rate 19 16 20 Blood Pressure 196/77 H Pulse Oximetry 97 97 99 06/20/18 17:15 18 17:16 06/20/18 17:30 Temperature Pulse Rate 71 71 63 Respiratory Rate 15 20 13 Blood Pressure 184/83 H Pulse Oximetry 97 97 97 06/20/18 17:45 06/20/18 17:46 06/20/18 18:00 Temperature Pulse Rate 70 63 68 Respiratory Rate 16 12 Blood Pressure Pulse Oximetry 97 97 06/20/18 18:15 06/20/18 18:48 06/20/18 19:00 Temperature Pulse Rate 66 72 Respiratory Rate 12 18 22 Blood Pressure Pulse Oximetry 98 97 06/20/18 19:15 06/20/18 19:30 06/20/18 19:45 Temperature Pulse Rate 68 66 67 Respiratory Rate 26 H 24 23 Blood Pressure Pulse Oximetry 98 97 97 06/20/18 20:00 06/20/18 20:06 06/20/18 20:15 Temperature 97.9 F Pulse Rate 72 71 65 Respiratory Rate 27 H 18 22 Blood Pressure Pulse Oximetry 97 97 98 06/20/18 20:30 06/20/18 20:45 06/20/18 21:00 Temperature Pulse Rate 79 73 66 Respiratory Rate 23 25 H 23 Blood Pressure Pulse Oximetry 95 96 95 06/20/18 21:15 06/20/18 21:28 06/20/18 21:30 Temperature Pulse Rate 68 71 71 Respiratory Rate 23 19 15 Blood Pressure 162/70 H 164/72 H Pulse Oximetry 95 96 95 06/20/18 21:45 06/20/18 22:00 06/20/18 22:15 Temperature Pulse Rate 63 63 61 Respiratory Rate 11 L 11 L 11 L Blood Pressure 167/74 H Pulse Oximetry 97 97 98 06/20/18 22:30 06/20/18 22:45 06/20/18 23:00 Temperature Pulse Rate 64 62 64 Respiratory Rate 13 12 12 Blood Pressure 180/77 H 171/75 H Pulse Oximetry 98 98 99 06/20/18 23:15 06/20/18 23:30 06/20/18 23:45 Temperature Pulse Rate 62 61 68 Respiratory Rate 13 12 14 Blood Pressure 156/67 H Pulse Oximetry 98 98 99 06/21/18 00:00 06/21/18 00:15 06/21/18 00:30 Temperature 98.7 F Pulse Rate 68 63 62 Respiratory Rate 13 11 L 12 Blood Pressure 180/73 H Pulse Oximetry 99 97 98 06/21/18 00:31 06/21/18 00:45 06/21/18 01:00 Temperature Pulse Rate 62 61 61 Respiratory Rate 12 11 L 11 L Blood Pressure 144/67 H 139/63 Pulse Oximetry 98 98 98 06/21/18 01:15 06/21/18 01:30 06/21/18 01:45 Temperature Pulse Rate 62 74 66 Respiratory Rate 11 L 33 H 17 Blood Pressure Pulse Oximetry 97 91 L 97 06/21/18 02:00 06/21/18 02:15 06/21/18 02:30 Temperature Pulse Rate 63 62 62 Respiratory Rate 19 21 21 Blood Pressure 162/68 H Pulse Oximetry 97 98 98 06/21/18 02:45 06/21/18 03:00 06/21/18 03:01 Temperature Pulse Rate 61 61 62 Respiratory Rate 14 11 L 13 Blood Pressure 160/72 H Pulse Oximetry 97 98 98 06/21/18 03:15 06/21/18 03:30 06/21/18 03:45 Temperature Pulse Rate 63 61 61 Respiratory Rate 11 L 15 19 Blood Pressure Pulse Oximetry 98 97 97 06/21/18 04:00 06/21/18 04:03 06/21/18 06:00 Temperature 98.7 F Pulse Rate 65 66 68 Respiratory Rate 14 16 Blood Pressure 182/74 H 175/69 H Pulse Oximetry 98 98 06/21/18 06:11 06/21/18 08:58 Temperature Pulse Rate 73 Respiratory Rate 22 Blood Pressure Pulse Oximetry 97 98 Intake & Output 06/20/18 06/21/18 06/21/18 18:59 06:59 18:59 Intake Total 767 / 767 410 / 410 Output Total 1100 / 1100 2250 / 2250 Balance -333 / -333 -1840 / -1840 Weight 85 kg Intake: IV 527 / 527 50 / 50 Bumex Inj 25 mg In 100 ml @ 0.5 77 / 77 MG/HR 2 mls/hr IV.CONT .Q24H [facility] Rx#:[id number] Flexbumin 25% Inj 100 ML @ 60 100 / 100 mls/hr IV.SIG Q12H [facility] Rx#: [id number] Zyvox 600 mg Premix 300 ML @ 300 / 300 300 mls/hr IV.SIG Q12H [facility] Rx#: [id number] Zosyn 2.25 GM Premix 50 ML @ 50 / 50 50 / 50 100 mls/hr IV.SIG Q8H ANNE Rx#: [id number] Oral 240 / 240 360 / 360 Output: Urine 1100 / 1100 2250 / 2250 Other: # Incontinent Voids 2 Date of Last Bowel Movement 06/19/18 06/20/18 # Bowel Movements 0 0 - Constitutional no acute distress - Routine HEENT Exam Head: Present: normocephalic Eye: Present: EOMI ENT: Present: mucous membranes moist - Routine Neck Exam Present: supple - Routine Respiratory Exam Present: decreased breath sounds - Routine Cardiovascular Exam Present: RRR - Routine Abdominal Exam Present: soft - Routine Skin Exam Present: intact - Routine Neurological Exam Present: alert - Detailed Neurological Exam: Coma Scale Eye Opening: Spontaneous - Routine Psychiatric Exam Present: normal affect - Urinary Catheter Management Indwelling Urethral Catheter Cath placed during this visit: yes, but has since been removed by the nurse Reason for continuing: Continue criteria not met Insertion date: 06/08/18 Insertion time: 16:15 Removal date: 06/15/18 Removal time: 12:00 Assessment and Plan - Assessment (1) STEPHIE (acute kidney injury) Code(s): N17.9 - Acute kidney failure, unspecified Status: Deleted (2) GI bleed requiring more than 4 units of blood in 24 hours, ICU, or surgery Code(s): K92.2 - Gastrointestinal hemorrhage, unspecified Status: Acute (3) Anemia Code(s): D64.9 - Anemia, unspecified Status: Acute Qualifiers: Other causes of anemia: acute posthemorrhagic (4) Shock Code(s): R57.9 - Shock, unspecified Status: Acute (5) Sepsis Code(s): A41.9 - Sepsis, unspecified organism Status: Acute - Plan Patient had pneumonia, and back to ICU on Bipap Patient is in ARF on dilfucan/zyvox/zosyn Acute renal failure appears to be due to hypoperfusion of the kidney as a result of sepsis Creatinine 2.2. Given Lasix potassium replaced Try Bumex drip possibility of dialysis discussed with staff She did not responded to Lasix and creatinine did decline --- Patient on bumex 0.5mg/hour and albumin, with 3.3L UOP/24 hours Creatinine 2.49 -> 2.4 Monitor K, stable today. Good response to bumex, continue on bumex drip for now. Need to contact family and discuss the possibility of dialysis if conservative approach fails Follow BMP and the urine out put.
--- NOTE | 2018-06-21 12:43 | P.PNCC ---
Subjective Subjective Remarks/Hospital Course: 68-year-old female, with past medical history significant for COPD, PE, on blood thinners, presented initially with complaint of GI bleed. Per EMS report they were called to the residential for respiratory distress. On their arrival they state that she was not in respiratory distress but she was hypotensive with a systolic blood pressure in the 60s and delayed cap refill. Blood sugar was within normal limits. They noted dark bloody stools. They were able to secure an IV and route did give her about 350 cc of fluids prior to arrival. Her last blood pressure prior to arrival was in the 110s systolic. Patient was able to say that her abdomen hurts but was not answering too many more questions, she denied chest pain, shortness of breath. The CT of the abdomen showed only large amount of stool in the bowel and the patient passed a large volume of stool after manual disimpaction. Shortly after this she has lost consciousness, became unresponsive with GCS of 3 requiring emergent intubation for an airway protection by ED attending. 05/20: Patient still became more hypotensive. Receiving 2 units PRBCs and K Centra 4500 units x1 now. Minimal response on the ventilator. Did withdraw to vigorous stimuli/sternal rub. Afebrile. 05/21: Currently resting in bed in no acute distress. Plan for extubation today. Hemoglobins remained stable. 05/22: Afebrile. Currently on 8 L nasal cannula. Will provide 1 dose of bumetanide and attempt to diurese. Discontinue IV fluids. CT brain overnight revealed no acute intracranial findings. 05/29 Critical care medicine reconsulted for hemorrhagic shock. Patient underwent EGD/colonoscopy on 05/27 that demonstrated severe erythematous gastritis of gastric body and antrum, diverticulosis, large circumferential colitis in sigmoid colon. CTA 05/27 demonstrates atherosclerosis in the SMA without high-grade stenosis. She does have a history of pulmonary embolism that was treated with Xarelto. Her Xarelto had been on hold due to GI bleeding but was resumed today. This afternoon she began having large dark bowel movements with clots. She has crampy abdominal pain. She is nauseated but not vomiting. Hemoglobin dropped from 10.7 this morning to 7.[address] Castro has been consulted for evaluation of ischemic colitis. Upon his evaluation he found her hypotensive with a MAP of 50 and thus has requested critical care medicine consult due to hemorrhagic shock. I am placing art line and central line. She was started on Levophed 06/18: 68 years old female who has multiple medical problems as above, admitted since 05/19/18. [facility] reconsulted for acute respiratory distress and impending respiratory failure with hypoxia. Evaluated by Dr. Garner on the floor stat ABG showed ph 7.27, pC02 55, PO2 73 02 sat 91 on 5 L nasal cannula. Patient was in severe respiratory distress, IV Lasix 40 mg given and patient was transferred to ICU. I evaluated patient immediately. Patient is tachypneic lethargic but wakes up easily. Chest x-ray shows bibasilar right more than left infiltrates indicating probable pneumonia. I will initiated patient on BiPAP 12/5 titrate FiO2 to keep saturation more than 90%. I will also hold prednisone start IV Solu-Medrol 60 mg every 8 hours continue breathing treatments and Symbicort. Broad-spectrum antibiotics with Zosyn and Zyvox until cultures are back check sputum urine and blood culture 06/19: Currently on 3 L nasal cannula. X-ray appears to be pulmonary edema with small pleural effusion. Will give 1 additional dose of furosemide 40 mg IV x1 now. Creatinine slowly normalizing. 06/20: Intermittently on and off BiPAP. Currently on bumetanide drip at 0.5 mg an hour. Diuresing nicely 1800 cc past 24 hours. Intermittently confused. Tolerating diet. Blood sugars are elevated. Subjective 06/21: Remains on nasal cannula. Remains on bumetanide drip at 0.5 mg an hour. Diuresed approximately 2100 cc past 24 hours. Complaining of generalized pain. Blood sugars remain elevated. Objective Vital Signs / I&O: Vital Signs 06/20/18 12:45 06/20/18 12:46 06/20/18 13:00 Temperature Pulse Rate 70 70 64 Respiratory Rate 25 H 22 19 Blood Pressure 171/84 H Pulse Oximetry 98 95 06/20/18 13:15 06/20/18 13:30 06/20/18 13:45 Temperature Pulse Rate 64 64 62 Respiratory Rate 21 23 21 Blood Pressure Pulse Oximetry 96 95 96 06/20/18 14:00 06/20/18 14:15 06/20/18 14:30 Temperature Pulse Rate 63 68 71 Respiratory Rate 23 14 16 Blood Pressure 183/81 H 182/88 H 184/78 H Pulse Oximetry 94 L 96 96 06/20/18 14:45 06/20/18 15:00 06/20/18 15:15 Temperature Pulse Rate 64 63 64 Respiratory Rate 22 24 22 Blood Pressure 150/64 H Pulse Oximetry 96 96 97 06/20/18 15:30 06/20/18 15:45 06/20/18 15:50 Temperature Pulse Rate 65 66 63 Respiratory Rate 22 24 Blood Pressure Pulse Oximetry 97 96 06/20/18 15:52 06/20/18 16:00 06/20/18 16:15 Temperature 98.5 F Pulse Rate 68 66 Respiratory Rate 18 20 13 Blood Pressure 167/72 H Pulse Oximetry 96 98 06/20/18 16:30 06/20/18 16:45 06/20/18 17:00 Temperature Pulse Rate 65 69 64 Respiratory Rate 24 19 16 Blood Pressure Pulse Oximetry 97 97 97 06/20/18 17:01 06/20/18 17:15 06/20/18 17:16 Temperature Pulse Rate 64 71 71 Respiratory Rate 20 15 20 Blood Pressure 196/77 H 184/83 H Pulse Oximetry 99 97 97 06/20/18 17:30 06/20/18 17:45 06/20/18 17:46 Temperature Pulse Rate 63 70 63 Respiratory Rate 13 16 Blood Pressure Pulse Oximetry 97 97 06/20/18 18:00 06/20/18 18:15 06/20/18 18:48 Temperature Pulse Rate 68 66 Respiratory Rate 12 12 18 Blood Pressure Pulse Oximetry 97 98 06/20/18 19:00 06/20/18 19:15 06/20/18 19:30 Temperature Pulse Rate 72 68 66 Respiratory Rate 22 26 H 24 Blood Pressure Pulse Oximetry 97 98 97 06/20/18 19:45 06/20/18 20:00 06/20/18 20:06 Temperature 97.9 F Pulse Rate 67 72 71 Respiratory Rate 23 27 H 18 Blood Pressure Pulse Oximetry 97 97 97 06/20/18 20:15 06/20/18 20:30 06/20/18 20:45 Temperature Pulse Rate 65 79 73 Respiratory Rate 22 23 25 H Blood Pressure Pulse Oximetry 98 95 96 06/20/18 21:00 06/20/18 21:15 06/20/18 21:28 Temperature Pulse Rate 66 68 71 Respiratory Rate 23 23 19 Blood Pressure 162/70 H Pulse Oximetry 95 95 96 06/20/18 21:30 06/20/18 21:45 06/20/18 22:00 Temperature Pulse Rate 71 63 63 Respiratory Rate 15 11 L 11 L Blood Pressure 164/72 H 167/74 H Pulse Oximetry 95 97 97 06/20/18 22:15 06/20/18 22:30 06/20/18 22:45 Temperature Pulse Rate 61 64 62 Respiratory Rate 11 L 13 12 Blood Pressure 180/77 H Pulse Oximetry 98 98 98 06/20/18 23:00 06/20/18 23:15 06/20/18 23:30 Temperature Pulse Rate 64 62 61 Respiratory Rate 12 13 12 Blood Pressure 171/75 H 156/67 H Pulse Oximetry 99 98 98 06/20/18 23:45 06/21/18 00:00 06/21/18 00:15 Temperature 98.7 F Pulse Rate 68 68 63 Respiratory Rate 14 13 11 L Blood Pressure 180/73 H Pulse Oximetry 99 99 97 06/21/18 00:30 06/21/18 00:31 06/21/18 00:45 Temperature Pulse Rate 62 62 61 Respiratory Rate 12 12 11 L Blood Pressure 144/67 H Pulse Oximetry 98 98 98 06/21/18 01:00 06/21/18 01:15 06/21/18 01:30 Temperature Pulse Rate 61 62 74 Respiratory Rate 11 L 11 L 33 H Blood Pressure 139/63 Pulse Oximetry 98 97 91 L 06/21/18 01:45 06/21/18 02:00 06/21/18 02:15 Temperature Pulse Rate 66 63 62 Respiratory Rate 17 19 21 Blood Pressure 162/68 H Pulse Oximetry 97 97 98 06/21/18 02:30 06/21/18 02:45 06/21/18 03:00 Temperature Pulse Rate 62 61 61 Respiratory Rate 21 14 11 L Blood Pressure Pulse Oximetry 98 97 98 06/21/18 03:01 06/21/18 03:15 06/21/18 03:30 Temperature Pulse Rate 62 63 61 Respiratory Rate 13 11 L 15 Blood Pressure 160/72 H Pulse Oximetry 98 98 97 06/21/18 03:45 06/21/18 04:00 06/21/18 04:03 Temperature 98.7 F Pulse Rate 61 65 66 Respiratory Rate 19 14 16 Blood Pressure 182/74 H 175/69 H Pulse Oximetry 97 98 98 06/21/18 06:00 06/21/18 06:11 06/21/18 08:58 Temperature Pulse Rate 68 73 Respiratory Rate 22 Blood Pressure Pulse Oximetry 97 98 Intake & Output 06/20/18 06/21/18 06/21/18 18:59 06:59 18:59 Intake Total 767 / 767 410 / 410 Output Total 1100 / 1100 2250 / 2250 Balance -333 / -333 -1840 / -1840 Weight 85 kg Intake: IV 527 / 527 50 / 50 Bumex Inj 25 mg In 100 ml @ 0.5 77 / 77 MG/HR 2 mls/hr IV.CONT .Q24H ANNE Rx#:[id number] Flexbumin 25% Inj 100 ML @ 60 100 / 100 mls/hr IV.SIG Q12H ANNE Rx#: [id number] Zyvox 600 mg Premix 300 ML @ 300 / 300 300 mls/hr IV.SIG Q12H ANNE Rx#: [id number] Zosyn 2.25 GM Premix 50 ML @ 50 / 50 50 / 50 100 mls/hr IV.SIG Q8H ANNE Rx#: [id number] Oral 240 / 240 360 / 360 Output: Urine 1100 / 1100 2250 / 2250 Other: # Incontinent Voids 2 Date of Last Bowel Movement 06/19/18 06/20/18 # Bowel Movements 0 0 Result Diagrams: 06/21/18 08:43 06/21/18 05:58 Other Results: Microbiology 06/18/18 14:00 Blood - Peripheral Aerobic Blood Culture - Preliminary No growth in 3 days 06/18/18 14:00 Blood - Peripheral Anaerobic Blood Culture - Preliminary No growth in 3 days 06/18/18 13:54 Blood - Peripheral Aerobic Blood Culture - Preliminary No growth in 3 days 06/18/18 13:54 Blood - Peripheral Anaerobic Blood Culture - Preliminary No growth in 3 days 06/08/18 17:45 Catheterized Urine Urine Culture - Final Lisbeth glabrata 06/05/18 19:50 Blood - Peripheral Aerobic Blood Culture - Final No growth in 5 days 06/05/18 19:50 Blood - Peripheral Anaerobic Blood Culture - Final No growth in 5 days 06/05/18 19:58 Blood - Peripheral Aerobic Blood Culture - Final No growth in 5 days 06/05/18 19:58 Blood - Peripheral Anaerobic Blood Culture - Final No growth in 5 days 06/06/18 06:15 Catheterized Urine Urine Culture - Final Lisbeth glabrata 05/29/18 04:40 Blood - Peripheral Aerobic Blood Culture - Final No growth in 5 days 05/29/18 04:40 Blood - Peripheral Anaerobic Blood Culture - Final No growth in 5 days 05/29/18 04:40 Blood - Peripheral Aerobic Blood Culture - Final No growth in 5 days 05/29/18 04:40 Blood - Peripheral Anaerobic Blood Culture - Final No growth in 5 days 05/28/18 18:40 Stool Stool Occult Blood (SARAHI) - Final Hemoccult positive 05/20/18 03:15 Blood - Peripheral Aerobic Blood Culture - Final No growth in 5 days 05/20/18 03:15 Blood - Peripheral Anaerobic Blood Culture - Final No growth in 5 days 05/20/18 03:10 Blood - Peripheral Aerobic Blood Culture - Final No growth in 5 days 05/20/18 03:10 Blood - Peripheral Anaerobic Blood Culture - Final No growth in 5 days 05/20/18 16:35 Sputum - Endotracheal Gram Stain - Final 05/20/18 16:35 Sputum - Endotracheal Sputum Culture - Final No growth in 48 hours 05/20/18 15:30 Nasal Wash Influenza Types A,B Antigen - Final Negative for FLU A and B antigen Infection due to influenza A or B cannot be ruled out since the antigen present in the sample may be below the detection limit of the test. Imaging: Abdomen X-Ray 05/20/18 02:10 CONCLUSION: Nonspecific, benign abdomen appearance. Abdomen/Pelvis CT 05/20/18 02:10 CONCLUSION: Rectal fecal impaction and likely mild proctitis Chest X-Ray 05/20/18 02:10 CONCLUSION: Negative examination. Chest X-Ray 05/20/18 05:29 CONCLUSION: Satisfactory endotracheal tube positioning. Slight bibasilar parenchymal opacities. Head CT 05/20/18 05:44 CONCLUSION: No acute intracranial findings . Chest X-Ray 05/20/18 08:57 CONCLUSION: 1. Left IJ central line in the mid SVC without pneumothorax. Head CT 05/21/18 19:41 CONCLUSION: 1. No acute findings. Stable exam since May 20. Chronic white matter ischemic changes. Retention cyst right maxillary sinus. . Chest X-Ray 05/23/18 06:00 CONCLUSION: Worsening bibasilar parenchymal consolidation. Interim extubation and nasogastric tube removal. Chest X-Ray 05/26/18 09:08 CONCLUSION: Improving bibasilar infiltrates and interstitial edema. Abdomen/Pelvis CTA 05/27/18 00:00 CONCLUSION: 1. There is severe atherosclerotic disease of the aorta. Atherosclerotic disease is present within the superior mesenteric artery but no high-grade stenosis or occlusion is visualized on the arterial side of the mesenteric vasculature. Please note that the venous mesenteric structures are not well evaluated on this examination timed for arterial enhancement. Additionally, there are no secondary findings to suggest mesenteric ischemia including no intramural air. 2. Wall thickening of the rectum suggesting a proctitis. 3. New small bilateral pleural effusions and new small volume of free fluid in the abdomen and pelvis. Also, anasarca is new. Chest X-Ray 05/28/18 23:38 CONCLUSION: 1. New right IJ line with tip at the atriocaval junction. No pneumothorax. 2. Mild atelectasis and tiny effusions at both lung bases not significantly changed. Chest X-Ray 05/29/18 00:00 CONCLUSION: No change mild atelectasis and small effusions at each lung base. Chest X-Ray 05/31/18 00:00 CONCLUSION: Stable chest x-ray with small bilateral pleural effusions with associated volume loss and/or airspace consolidation. Chest X-Ray 06/05/18 00:00 CONCLUSION: Mild parenchymal consolidation and small effusions at each lung base not significantly changed. Abdomen/Bladder Ultrasound 06/08/18 00:00 CONCLUSION: 1. Negative renal sonogram. No obstruction observed. Chest X-Ray 06/12/18 00:00 CONCLUSION: Unchanged bibasal infiltrates and small effusions. Venous Doppler Study 06/13/18 00:00 CONCLUSION: 1. The study is negative for bilateral lower extremity deep venous thrombosis. Chest X-Ray 06/17/18 00:00 CONCLUSION: Cardiomegaly with probable moderate congestive failure. There is some improvement from comparison. Chest X-Ray 06/18/18 11:48 CONCLUSION: 1. Persistent pulmonary edema pattern with probable small bilateral pleural effusions. Chest X-Ray 06/20/18 06:00 CONCLUSION: 1. Bibasilar airspace disease. 2. Cardiomegaly Chest X-Ray 06/21/18 06:00 CONCLUSION: Persistent bibasilar consolidation. Objective Remarks: GENERAL: 68-year-old female sitting up in [facility] bed in no acute distress but confused. SKIN: Warm and dry. No rash HEAD: Atraumatic. Normocephalic. EYES: Pupils equal and round. No scleral icterus. ENT: No nasal bleeding or discharge. NECK: Trachea midline. No JVD. CARDIOVASCULAR: Regular rate and rhythm. S1, S2 no S4. 1/6 systolic murmur left sternal border. RESPIRATORY: Diminished air entry at the bases with bibasilar crackles bilateral expiratory wheezes use. GASTROINTESTINAL: Abdomen mildly distended, mild diffuse tenderness MUSCULOSKELETAL: Trace to 1+ edema bilateral lower extremities.. Complaining of tenderness. Negative Doppler ultrasound 06/13 NEUROLOGICAL: Alert awake strength appears equal symmetric.. Moves all extremities spontaneously. No focal neurological deficits. Assessment and Plan - Assessment and Plan Plan: Neuro/Psych: Metabolic encephalopathy Depression/anxiety disorder NOS Peripheral neuropathy Chronic benzodiazepine use on alprazolam 0.5 mg twice daily at home Currently lethargic due to hypercapnia will watch closely for airway protection Oxycodone/acetaminophen 10/325 1 to 2 tabs as needed for pain Dexmedetomidine drip if needed for BiPAP synchrony Continue renally dosed gabapentin currently 200 mg every [address] brain 05/20 and 05/21 revealed no acute intracranial findings Alprazolam 0.25 mg every 6 hours as needed anxiety. CV: Mild pulmonary edema Essential hypertension Hyperlipidemia Questionable atrial septal defect on echocardiogram 04/18 2D echocardiogram time revealed EF 65%. LVH. Essentially normal pulmonary arterial pressures. Continue hydralazine 100 mg 3 times daily, carvedilol 25 mg twice daily and amlodipine 10 mg daily and isosorbide dinitrate 20 mg 3 times daily Started on bumetanide drip at 0.5 mg/h per nephrology attempt to diurese. On atorvastatin 40 mg daily for dyslipidemia. Holding anticoagulation and antiplatelet therapy due to bleeding per GI recommendations Resp: Acute hypoxemic and hypercarbic respiratory failure Right lower lobe pneumonia COPD with acute exacerbation History of pulmonary embolism on chronic rivaroxaban Initiated on BiPAP 08/05. Currently she is on cannula 3 L Hold prednisone 20 mg twice daily continue methylprednisolone succinate wean to 40 mg every 12 hours Extubated 05/21 previously Albuterol/ipratropium aerosols every 6 hours with albuterol aerosols every 2 as needed for dyspnea Continue budesonide/formoterol 160/4.5 2 puffs twice daily GI/HEME: Ischemic colitis, colonoscopy 05/[address] Porter Severe erythematous gastritis, esophagitis on EGD 05/27 GI bleeding Fecal impaction, resolved Disimpacted in the ED. Hypoalbuminemia Elevated lipase of unclear significance Continue pantoprazole 40 mg twice daily ADA diet 2000/mechanical soft with chopped meats CT abdomen pelvis 05/27no pneumatosis. There is SMA atherosclerosis without high-grade stenosis. EGD and colonoscopy 05/27 demonstrated severe erythematous gastritis, esophagitis , diverticulitis, sigmoid ischemic colitis. Developed acute GI bleeding with hemorrhagic shock on 05/28 after receiving dose of rivaroxaban. Held since Endo: Hyperglycemia Chronic prednisone use -prednisone 10 mg twice daily. Bedside glucose every AC/at bedtime with medium dose insulin sliding scale aspart insulin as indicated. On insulin detemir 10 units subcu twice daily continued FEN/Renal: Acute kidney injury History of anterior urethral stricture Baseline creatinine around 1.1. Today 2.4. This a.m. is pending. Nephrology following and switched to bumetanide drip at 0.5 mg an hour. Also on scheduled albumin 25 [address] every [address] abdomen/pelvis revealed no hydronephrosis. Negative urine eosinophils. Avoid nephrotoxic medication. ID: Healthcare associated pneumonia Sepsis Lisbeth glabrata UTI Start piperacillin/tazobactam and linezolid #4, follow-up blood urine and sputum culture Urine culture 06/08/2018 had been positive for Lisbeth glabrata and patient had been on Diflucan (Even though C Glabrata) Repeat urine culture if positive for Lisbeth glabrata change to micafungin Access -PIV. Central line if indicated Prophylaxis -GI -pantoprazole 40 BID -DVT-SCD/holding pharmacological prophylaxis in light of GI bleed Level 2 follow-up.
[2018-06-21] MEDS: ALPRAZolam 0.25 MG Tablet PO PRN (15:56)
--- NOTE | 2018-06-21 16:55 | P.PN ---
Subjective Interval history: ALERT NAD Physical Exam Vital signs: Vital Signs 06/20/18 17:00 06/20/18 17:01 06/20/18 17:15 Temperature Pulse Rate 64 64 71 Respiratory Rate 16 20 15 Blood Pressure 196/77 H Pulse Oximetry 97 99 97 06/20/18 17:16 18 17:30 06/20/18 17:45 Temperature Pulse Rate 71 63 70 Respiratory Rate 20 13 16 Blood Pressure 184/83 H Pulse Oximetry 97 97 97 06/20/18 17:46 06/20/18 18:00 06/20/18 18:15 Temperature Pulse Rate 63 68 66 Respiratory Rate 12 12 Blood Pressure Pulse Oximetry 97 98 06/20/18 18:48 06/20/18 19:00 06/20/18 19:15 Temperature Pulse Rate 72 68 Respiratory Rate 18 22 26 H Blood Pressure Pulse Oximetry 97 98 06/20/18 19:30 06/20/18 19:45 06/20/18 20:00 Temperature 97.9 F Pulse Rate 66 67 72 Respiratory Rate 24 23 27 H Blood Pressure Pulse Oximetry 97 97 97 06/20/18 20:06 06/20/18 20:15 06/20/18 20:30 Temperature Pulse Rate 71 65 79 Respiratory Rate 18 22 23 Blood Pressure Pulse Oximetry 97 98 95 06/20/18 20:45 06/20/18 21:00 06/20/18 21:15 Temperature Pulse Rate 73 66 68 Respiratory Rate 25 H 23 23 Blood Pressure Pulse Oximetry 96 95 95 06/20/18 21:28 06/20/18 21:30 06/20/18 21:45 Temperature Pulse Rate 71 71 63 Respiratory Rate 19 15 11 L Blood Pressure 162/70 H 164/72 H Pulse Oximetry 96 95 97 06/20/18 22:00 06/20/18 22:15 06/20/18 22:30 Temperature Pulse Rate 63 61 64 Respiratory Rate 11 L 11 L 13 Blood Pressure 167/74 H 180/77 H Pulse Oximetry 97 98 98 06/20/18 22:45 06/20/18 23:00 06/20/18 23:15 Temperature Pulse Rate 62 64 62 Respiratory Rate 12 12 13 Blood Pressure 171/75 H Pulse Oximetry 98 99 98 06/20/18 23:30 06/20/18 23:45 06/21/18 00:00 Temperature 98.7 F Pulse Rate 61 68 68 Respiratory Rate 12 14 13 Blood Pressure 156/67 H 180/73 H Pulse Oximetry 98 99 99 06/21/18 00:15 06/21/18 00:30 06/21/18 00:31 Temperature Pulse Rate 63 62 62 Respiratory Rate 11 L 12 12 Blood Pressure 144/67 H Pulse Oximetry 97 98 98 06/21/18 00:45 06/21/18 01:00 06/21/18 01:15 Temperature Pulse Rate 61 61 62 Respiratory Rate 11 L 11 L 11 L Blood Pressure 139/63 Pulse Oximetry 98 98 97 06/21/18 01:30 06/21/18 01:45 06/21/18 02:00 Temperature Pulse Rate 74 66 63 Respiratory Rate 33 H 17 19 Blood Pressure 162/68 H Pulse Oximetry 91 L 97 97 06/21/18 02:15 06/21/18 02:30 06/21/18 02:45 Temperature Pulse Rate 62 62 61 Respiratory Rate 21 21 14 Blood Pressure Pulse Oximetry 98 98 97 06/21/18 03:00 06/21/18 03:01 06/21/18 03:15 Temperature Pulse Rate 61 62 63 Respiratory Rate 11 L 13 11 L Blood Pressure 160/72 H Pulse Oximetry 98 98 98 06/21/18 03:30 06/21/18 03:45 06/21/18 04:00 Temperature 98.7 F Pulse Rate 61 61 65 Respiratory Rate 15 19 14 Blood Pressure 182/74 H Pulse Oximetry 97 97 98 06/21/18 04:03 06/21/18 06:00 06/21/18 06:11 Temperature Pulse Rate 66 68 Respiratory Rate 16 Blood Pressure 175/69 H Pulse Oximetry 98 97 06/21/18 07:45 06/21/18 08:00 06/21/18 08:15 Temperature 98.6 F Pulse Rate 67 70 70 Respiratory Rate 25 H 19 18 Blood Pressure 180/77 H Pulse Oximetry 97 98 98 06/21/18 08:17 06/21/18 08:30 06/21/18 08:45 Temperature Pulse Rate 72 70 75 Respiratory Rate 31 H 24 28 H Blood Pressure 182/77 H 177/75 H Pulse Oximetry 98 97 96 06/21/18 08:58 06/21/18 09:00 06/21/18 09:01 Temperature Pulse Rate 73 71 71 Respiratory Rate 22 15 15 Blood Pressure 202/80 H Pulse Oximetry 98 97 97 06/21/18 09:07 06/21/18 09:15 06/21/18 09:30 Temperature Pulse Rate 68 75 68 Respiratory Rate 15 22 17 Blood Pressure 180/77 H 174/76 H Pulse Oximetry 97 95 94 L 06/21/18 09:45 06/21/18 10:00 06/21/18 10:15 Temperature Pulse Rate 71 68 66 Respiratory Rate 15 10 L 11 L Blood Pressure 188/79 H Pulse Oximetry 95 95 89 L 06/21/18 10:30 06/21/18 10:45 06/21/18 11:00 Temperature Pulse Rate 66 63 64 Respiratory Rate 15 10 L 13 Blood Pressure 173/73 H 168/74 H Pulse Oximetry 92 L 91 L 97 06/21/18 11:15 06/21/18 11:30 06/21/18 11:45 Temperature Pulse Rate 63 65 63 Respiratory Rate 12 16 13 Blood Pressure 163/81 H Pulse Oximetry 97 98 97 06/21/18 12:00 06/21/18 12:15 06/21/18 12:30 Temperature 98.9 F Pulse Rate 62 64 65 Respiratory Rate 11 L 11 L 12 Blood Pressure 168/71 H 193/77 H Pulse Oximetry 98 98 98 06/21/18 12:44 06/21/18 12:45 06/21/18 13:00 Temperature Pulse Rate 67 66 64 Respiratory Rate 13 12 12 Blood Pressure 173/74 H 192/79 H Pulse Oximetry 97 97 98 06/21/18 13:05 06/21/18 13:15 06/21/18 13:30 Temperature Pulse Rate 64 71 64 Respiratory Rate 12 14 11 L Blood Pressure 178/77 H Pulse Oximetry 98 96 97 06/21/18 13:31 06/21/18 13:45 06/21/18 13:57 Temperature Pulse Rate 63 65 69 Respiratory Rate 11 L 22 22 Blood Pressure 165/70 H Pulse Oximetry 97 96 06/21/18 14:00 06/21/18 14:01 Temperature Pulse Rate 66 64 Respiratory Rate 18 13 Blood Pressure 155/65 H Pulse Oximetry 98 98 Intake & Output 06/20/18 06/21/18 06/21/18 18:59 06:59 18:59 Intake Total 767 / 767 860 / 860 Output Total 1100 / 1100 2250 / 2250 Balance -333 / -333 -1390 / -1390 Weight 85 kg Intake: IV 527 / 527 500 / 500 Bumex Inj 25 mg In 100 ml @ 0.5 77 / 77 MG/HR 2 mls/hr IV.CONT .Q24H ANNE Rx#:[id number] Flexbumin 25% Inj 100 ML @ 60 100 / 100 100 / 100 mls/hr IV.SIG Q12H ANNE Rx#: [id number] Zyvox 600 mg Premix 300 ML @ 300 / 300 300 / 300 300 mls/hr IV.SIG Q12H ANNE Rx#: [id number] Zosyn 2.25 GM Premix 50 ML @ 50 / 50 100 / 100 100 mls/hr IV.SIG Q8H ANNE Rx#: [id number] Oral 240 / 240 360 / 360 Output: Urine 1100 / 1100 2250 / 2250 Other: # Incontinent Voids 2 Date of Last Bowel Movement 06/19/18 06/20/18 06/20/18 # Bowel Movements 0 0 Narrative: Chronically ill-appearing elderly female in NAD.Confused. SKIN: Cool and dry. Pale. HEENT: Pupils equal and round. Pale conjunctiva. Throat clear. NECK: Supple no tender LAD or JVD. HEART: RRR no m/r/g. LUNGS: Decreased air entry, BI basal crackles and Wheezes ABDOMEN: +BS, soft, nondistended. Obese and No organomegaly. EXTREMITIES: 1 + LE edema. Diminished pedal pulses. NEURO: Awake confused - Urinary Catheter Management Indwelling Urethral Catheter Cath placed during this visit: yes, but has since been removed by the nurse Reason for continuing: Continue criteria not met Insertion date: 06/08/18 Insertion time: 16:15 Removal date: 06/15/18 Removal time: 12:00 Results - Labs CBC & Chem 7: 06/21/18 08:43 06/21/18 05:58 Laboratory Results - last 24 hr 06/20/18 06/20/18 06/21/18 18:21 20:58 05:58 WBC RBC Hgb Hct MCV MCH MCHC RDW Plt Count MPV Prelim Diff (Auto) Neut % (Auto) Lymph % (Auto) Gila % (Auto) Eos % (Auto) Baso % (Auto) Neut # (Auto) Lymph # (Auto) Gila # (Auto) Eos # (Auto) Baso # (Auto) WBC Differential Seg Neuts % (Manual) Band Neuts % (Manual) Lymphocytes % (Manual) Monocytes % (Manual) Metamyelocytes % (Man) Abs Neuts (Manual) Differential Comment Platelet Estimate Platelet Morphology Ovalocytes Sodium 146 H Potassium 3.6 D Chloride 104 Carbon Dioxide 30.3 Anion Gap 12 BUN 74 H Creatinine 2.40 H Estimated GFR 20 L POC Glucose 328 H 282 H Random Glucose 317 H Calcium 8.8 Phosphorus 3.7 Magnesium 2.3 Total Bilirubin 0.7 AST 12 L ALT 17 Alkaline Phosphatase 65 Total Protein 6.5 Albumin 4.3 06/21/18 06/21/18 06/21/18 08:40 08:43 12:47 WBC 13.0 H RBC 2.78 L Hgb 8.4 L Hct 24.7 L MCV 88.8 MCH 30.1 MCHC 33.9 RDW 17.2 Plt Count 265 MPV 9.1 Prelim Diff (Auto) Slide review pending Neut % (Auto) 93.0 H Lymph % (Auto) 3.5 L Gila % (Auto) 3.2 Eos % (Auto) 0.0 Baso % (Auto) 0.3 Neut # (Auto) 12.1 H Lymph # (Auto) 0.5 L Gila # (Auto) 0.4 Eos # (Auto) 0.0 Baso # (Auto) 0.0 WBC Differential Manual diff final Seg Neuts % (Manual) 83 H Band Neuts % (Manual) 8 H Lymphocytes % (Manual) 3 L Monocytes % (Manual) 2 Metamyelocytes % (Man) 4 H Abs Neuts (Manual) 12.4 H Differential Comment . Platelet Estimate Normal Platelet Morphology Normal Ovalocytes 1+ H Sodium Potassium Chloride Carbon Dioxide Anion Gap BUN Creatinine Estimated GFR POC Glucose 359 H 295 H Random Glucose Calcium Phosphorus Magnesium Total Bilirubin AST ALT Alkaline Phosphatase Total Protein Albumin Microbiology 06/18/18 14:00 Blood - Peripheral Aerobic Blood Culture - Preliminary No growth in 3 days 06/18/18 14:00 Blood - Peripheral Anaerobic Blood Culture - Preliminary No growth in 3 days 06/18/18 13:54 Blood - Peripheral Aerobic Blood Culture - Preliminary No growth in 3 days 06/18/18 13:54 Blood - Peripheral Anaerobic Blood Culture - Preliminary No growth in 3 days - Imaging Impressions Chest X-Ray 10/21/18 06:00 CONCLUSION: Persistent bibasilar consolidation. - Procedures central line placement. Assessment and Plan - Plan RESPIRATORY FAILURE PNA PLEURAL EFFUSION PLAN O2 NEEDED/BIPAP ANTIBX INCREASE ACTIVITY
[2018-06-21] MEDS: traZODone 50 MG Tablet PO SCH (20:41)
[2018-06-22] MEDS: Gabapentin 100 MG Capsule PO SCH ×3 (02:40→17:45)
[2018-06-22] MEDS: hydrALAZINE HCl Inj 20 MG/ML Vial IV.PUSH PRN (02:40)
[2018-06-22] MEDS: ALPRAZolam 0.25 MG Tablet PO PRN (02:41)
[2018-06-22] MEDS: Albumin Human 25% Inj 100 ML IV.SIG SCH (04:25)
[2018-06-22] MEDS: oxyCODONE/Acetaminophen 10/325 Tablet PO PRN (05:53)
[2018-06-22] MEDS: Piperacil/Tazo 2.25 GM Premix 50 ML IV.SIG SCH ×3 (05:53→21:11)
[2018-06-22 07:07] LABS: Hematocrit 24.3 % (35.0-46.0); Hemoglobin 8.2 gm/dL (11.6-15.3); Mean Corpuscular HGB Conc 33.6 % (32.0-36.0); Mean Corpuscular Hemoglobin 29.7 pg (27.0-34.0); Mean Corpuscular Volume 88.4 fL (80.0-100.0); Mean Platelet Volume 9.1 fL (7.0-11.0); Platelet Count 238 th/mm3 (150-450); Red Blood Count 2.75 mil/mm3 (4.00-5.30); Red Cell Distribution Width 16.9 % (11.6-17.2); White Blood Count 12.3 th/mm3 (4.0-11.0)
[2018-06-22 07:24] LABS: Albumin 4.4 g/dL (3.4-5.0); Anion Gap 13 meq/L (5-15); Aspartate Aminotransferase 5 U/L (15-37); Blood Urea Nitrogen 84 mg/dL (7-18); Calcium 8.9 mg/dL (8.5-10.1); Carbon Dioxide 34.1 meq/L (21.0-32.0); Chloride 97 meq/L (98-107); Glomerular Filtration Rate 20 mL/min (>89); Glucose,Random 372 mg/dL (74-106); Magnesium 2.2 mg/dL (1.5-2.5); Potassium 3.2 meq/L (3.5-5.1); Sodium 144 meq/L (136-145)
[2018-06-22 07:28] LABS: Alanine Aminotransferase 17 U/L (10-53); Alkaline Phosphatase 62 U/L (45-117); Phosphorus 4.2 mg/dL (2.5-4.9); Total Protein 6.6 g/dL (6.4-8.2)
[2018-06-22] MEDS: Mupirocin 2% Nasal Oint Topical Syringe EACH NARE SCH ×2 (09:15→21:12)
[2018-06-22] MEDS: Insulin NovoLOG Aspart Correctional Sugar Inj SQ SCH ×4 (09:15→21:13)
[2018-06-22] MEDS: Carvedilol 12.5 MG Tablet PO SCH ×2 (09:15→21:13)
[2018-06-22] MEDS: Lactic Acid (Ammonium Lactate) 12% Lotion 225 GM Bottle TOPICAL SCH (09:16)
[2018-06-22] MEDS: Senna/Docusate Sodium 8.6/50 MG Tablet PO SCH ×2 (09:16→21:12)
[2018-06-22] MEDS: Budesonide-Formoterol 160/4.5 MCG 6 GM Inhaler INH SCH ×2 (09:16→21:14)
[2018-06-22] MEDS: Polyvinyl Alcohol/Povidone PF Opth Drops 0.4 ML Dropperette EACH EYE SCH ×2 (09:16→21:14)
[2018-06-22] MEDS: MethylPREDNISolone Sod Succinate Inj 40 MG/ML Vial IV.PUSH SCH ×2 (09:16→21:12)
[2018-06-22] MEDS: guaiFENesin 600 MG ER Tablet PO SCH ×2 (09:16→21:12)
[2018-06-22] MEDS: Labetalol HCl Inj 100 MG/20 ML Vial IV.PUSH PRN (09:34)
--- NOTE | 2018-06-22 11:04 | P.PNNP ---
Subjective Interval history: Patient remains weak swelling of the legs is improved on nasal cannula O2 Physical Exam Vital signs: Vital Signs 06/21/18 11:15 06/21/18 11:30 06/21/18 11:45 Temperature Pulse Rate 63 65 63 Respiratory Rate 12 16 13 Blood Pressure 163/81 H Pulse Oximetry 97 98 97 06/21/18 12:00 06/21/18 12:15 06/21/18 12:30 Temperature 98.9 F Pulse Rate 62 64 65 Respiratory Rate 11 L 11 L 12 Blood Pressure 168/71 H 193/77 H Pulse Oximetry 98 98 98 06/21/18 12:44 06/21/18 12:45 06/21/18 13:00 Temperature Pulse Rate 67 66 64 Respiratory Rate 13 12 12 Blood Pressure 173/74 H 192/79 H Pulse Oximetry 97 97 98 06/21/18 13:05 06/21/18 13:15 06/21/18 13:30 Temperature Pulse Rate 64 71 64 Respiratory Rate 12 14 11 L Blood Pressure 178/77 H Pulse Oximetry 98 96 97 06/21/18 13:31 06/21/18 13:45 06/21/18 13:57 Temperature Pulse Rate 63 65 69 Respiratory Rate 11 L 22 22 Blood Pressure 165/70 H Pulse Oximetry 97 96 06/21/18 14:00 06/21/18 14:01 06/21/18 14:15 Temperature Pulse Rate 66 64 66 Respiratory Rate 18 13 12 Blood Pressure 155/65 H Pulse Oximetry 98 98 90 L 06/21/18 14:30 06/21/18 14:31 06/21/18 14:41 Temperature Pulse Rate 63 63 69 Respiratory Rate 21 19 28 H Blood Pressure 178/71 H 177/79 H Pulse Oximetry 97 97 96 06/21/18 14:45 06/21/18 14:51 06/21/18 14:57 Temperature Pulse Rate 66 65 63 Respiratory Rate 20 12 13 Blood Pressure 181/98 H 162/73 H Pulse Oximetry 96 97 97 06/21/18 15:00 06/21/18 15:15 06/21/18 15:30 Temperature Pulse Rate 63 68 66 Respiratory Rate 10 L 20 14 Blood Pressure 172/71 H Pulse Oximetry 97 96 96 06/21/18 15:31 06/21/18 15:45 06/21/18 15:48 Temperature Pulse Rate 65 63 63 Respiratory Rate 18 12 10 L Blood Pressure 172/75 H 168/111 H Pulse Oximetry 96 97 97 06/21/18 16:00 06/21/18 16:15 06/21/18 16:30 Temperature 98.4 F Pulse Rate 65 63 63 Respiratory Rate 9 L 10 L 24 Blood Pressure 182/93 H Pulse Oximetry 97 98 98 06/21/18 16:31 06/21/18 16:45 06/21/18 16:47 Temperature Pulse Rate 62 63 63 Respiratory Rate 16 11 L 11 L Blood Pressure 186/78 H 178/76 H Pulse Oximetry 98 98 98 06/21/18 17:00 06/21/18 18:00 06/21/18 20:00 Temperature 97.7 F Pulse Rate 62 64 69 Respiratory Rate 12 14 Blood Pressure 163/72 H 188/118 H Pulse Oximetry 98 96 06/21/18 20:26 06/21/18 22:00 06/22/18 00:00 Temperature 98 F Pulse Rate 67 58 L 57 L Respiratory Rate 16 25 H Blood Pressure 133/62 Pulse Oximetry 97 99 06/22/18 02:00 06/22/18 03:00 06/22/18 03:15 Temperature Pulse Rate 59 L 67 62 Respiratory Rate 16 11 L Blood Pressure 161/70 H Pulse Oximetry 97 98 06/22/18 03:30 06/22/18 03:45 06/22/18 04:00 Temperature 97.7 F Pulse Rate 63 62 62 Respiratory Rate 12 12 12 Blood Pressure 152/66 H 154/72 H Pulse Oximetry 98 98 98 06/22/18 04:15 06/22/18 04:30 06/22/18 04:45 Temperature Pulse Rate 62 66 66 Respiratory Rate 12 22 20 Blood Pressure 168/70 H Pulse Oximetry 98 97 98 06/22/18 05:00 06/22/18 05:15 06/22/18 05:30 Temperature Pulse Rate 68 70 66 Respiratory Rate 23 14 16 Blood Pressure 174/74 H 169/79 H Pulse Oximetry 98 99 98 06/22/18 05:45 06/22/18 06:00 06/22/18 06:15 Temperature Pulse Rate 64 68 76 Respiratory Rate 12 30 H 34 H Blood Pressure 194/75 H Pulse Oximetry 99 98 95 06/22/18 06:25 06/22/18 06:30 06/22/18 06:31 Temperature Pulse Rate 66 65 64 Respiratory Rate 16 12 10 L Blood Pressure 162/72 H Pulse Oximetry 99 99 06/22/18 06:45 06/22/18 07:00 06/22/18 07:15 Temperature Pulse Rate 62 62 61 Respiratory Rate 9 L 11 L 10 L Blood Pressure 150/67 H Pulse Oximetry 97 97 97 06/22/18 07:30 06/22/18 07:45 06/22/18 07:59 Temperature Pulse Rate 63 61 Respiratory Rate 11 L 10 L Blood Pressure 168/71 H Pulse Oximetry 97 97 98 06/22/18 08:00 06/22/18 08:15 06/22/18 08:30 Temperature Pulse Rate 60 61 60 Respiratory Rate 8 L 11 L 10 L Blood Pressure 150/66 H Pulse Oximetry 98 98 98 06/22/18 08:31 06/22/18 08:45 06/22/18 09:00 Temperature Pulse Rate 60 61 66 Respiratory Rate 9 L 9 L 19 Blood Pressure 183/74 H Pulse Oximetry 99 98 97 06/22/18 09:01 06/22/18 09:15 06/22/18 09:30 Temperature Pulse Rate 66 67 69 Respiratory Rate 25 H 20 16 Blood Pressure 174/74 H Pulse Oximetry 98 98 98 06/22/18 09:31 06/22/18 09:45 06/22/18 10:00 Temperature Pulse Rate 70 63 63 Respiratory Rate 16 18 21 Blood Pressure 207/79 H Pulse Oximetry 98 98 99 06/22/18 10:01 06/22/18 10:15 Temperature Pulse Rate 61 61 Respiratory Rate 12 16 Blood Pressure 175/74 H Pulse Oximetry 100 99 Intake & Output 06/21/18 06/22/18 06/22/18 18:59 06:59 18:59 Intake Total 800 / 800 980 / 980 Output Total 1650 / 1650 1200 / 1200 Balance -850 / -850 -220 / -220 Weight 85 kg Intake: IV 450 / 450 500 / 500 Flexbumin 25% Inj 100 ML @ 60 100 / 100 100 / 100 mls/hr IV.SIG Q12H ANNE Rx#: [id number] Zyvox 600 mg Premix 300 ML @ 300 / 300 300 / 300 300 mls/hr IV.SIG Q12H ANNE Rx#: [id number] Zosyn 2.25 GM Premix 50 ML @ 50 / 50 100 / 100 100 mls/hr IV.SIG Q8H ANNE Rx#: [id number] Oral 350 / 350 480 / 480 Output: Urine 1650 / 1650 1200 / 1200 Other: # Incontinent Voids 1 Date of Last Bowel Movement 06/19/18 06/22/18 06/22/18 # Bowel Movements 0 2 Narrative: Chronically ill-appearing elderly female in NAD.Confused. SKIN: Cool and dry. Pale. HEENT: Pupils equal and round. Pale conjunctiva. Throat clear. NECK: Supple no tender LAD or JVD. HEART: RRR no m/r/g. LUNGS: Decreased air entry, BI basal crackles and Wheezes ABDOMEN: +BS, soft, nondistended. Obese and No organomegaly. EXTREMITIES: 1 + LE edema. Diminished pedal pulses. NEURO: Awake confused - Urinary Catheter Management Indwelling Urethral Catheter Cath placed during this visit: yes, but has since been removed by the nurse Reason for continuing: Continue criteria not met Insertion date: 06/08/18 Insertion time: 16:15 Removal date: 06/15/18 Removal time: 12:00 Assessment and Plan - Assessment (1) STEPHIE (acute kidney injury) Code(s): N17.9 - Acute kidney failure, unspecified Status: Deleted (2) GI bleed requiring more than 4 units of blood in 24 hours, ICU, or surgery Code(s): K92.2 - Gastrointestinal hemorrhage, unspecified Status: Acute (3) Anemia Code(s): D64.9 - Anemia, unspecified Status: Acute Qualifiers: Other causes of anemia: acute posthemorrhagic (4) Shock Code(s): R57.9 - Shock, unspecified Status: Acute (5) Sepsis Code(s): A41.9 - Sepsis, unspecified organism Status: Acute - Plan Patient had pneumonia, and back to ICU on Bipap Patient is in ARF on zyvox/zosyn Acute renal failure appears to be due to hypoperfusion of the kidney as a result of sepsis Creatinine 2.4. Stop Bumex drip as creatinine is elevated urine output 2.8 L Stop albumin --- K been replaced Follow BMP and the urine out put.
[2018-06-22] MEDS ORDERED: Insulin Detemir Inj 1,000 UNIT/10 ML Vial SQ SCH (12:00)
--- NOTE | 2018-06-22 13:05 | P.PNCC ---
Subjective Subjective Remarks/Hospital Course: 68-year-old female, with past medical history significant for COPD, PE, on blood thinners, presented initially with complaint of GI bleed. Per EMS report they were called to the [facility] for respiratory distress. On their arrival they state that she was not in respiratory distress but she was hypotensive with a systolic blood pressure in the 60s and delayed cap refill. Blood sugar was within normal limits. They noted dark bloody stools. They were able to secure an IV and route did give her about 350 cc of fluids prior to arrival. Her last blood pressure prior to arrival was in the 110s systolic. Patient was able to say that her abdomen hurts but was not answering too many more questions, she denied chest pain, shortness of breath. The CT of the abdomen showed only large amount of stool in the bowel and the patient passed a large volume of stool after manual disimpaction. Shortly after this she has lost consciousness, became unresponsive with GCS of 3 requiring emergent intubation for an airway protection by ED attending. 05/20: Patient still became more hypotensive. Receiving 2 units PRBCs and K Centra 4500 units x1 now. Minimal response on the ventilator. Did withdraw to vigorous stimuli/sternal rub. Afebrile. 05/21: Currently resting in bed in no acute distress. Plan for extubation today. Hemoglobins remained stable. 05/22: Afebrile. Currently on 8 L nasal cannula. Will provide 1 dose of bumetanide and attempt to diurese. Discontinue IV fluids. CT brain overnight revealed no acute intracranial findings. 05/29 Critical care medicine reconsulted for hemorrhagic shock. Patient underwent EGD/colonoscopy on 05/27 that demonstrated severe erythematous gastritis of gastric body and antrum, diverticulosis, large circumferential colitis in sigmoid colon. CTA 05/27 demonstrates atherosclerosis in the SMA without high-grade stenosis. She does have a history of pulmonary embolism that was treated with Xarelto. Her Xarelto had been on hold due to GI bleeding but was resumed today. This afternoon she began having large dark bowel movements with clots. She has crampy abdominal pain. She is nauseated but not vomiting. Hemoglobin dropped from 10.7 this morning to 7.[address] Castro has been consulted for evaluation of ischemic colitis. Upon his evaluation he found her hypotensive with a MAP of 50 and thus has requested critical care medicine consult due to hemorrhagic shock. I am placing art line and central line. She was started on Levophed 06/18: 68 years old female who has multiple medical problems as above, admitted since 05/19/18. [facility] reconsulted for acute respiratory distress and impending respiratory failure with hypoxia. Evaluated by Dr. Garner on the floor stat ABG showed ph 7.27, pC02 55, PO2 73 02 sat 91 on 5 L nasal cannula. Patient was in severe respiratory distress, IV Lasix 40 mg given and patient was transferred to ICU. I evaluated patient immediately. Patient is tachypneic lethargic but wakes up easily. Chest x-ray shows bibasilar right more than left infiltrates indicating probable pneumonia. I will initiated patient on BiPAP 12/5 titrate FiO2 to keep saturation more than 90%. I will also hold prednisone start IV Solu-Medrol 60 mg every 8 hours continue breathing treatments and Symbicort. Broad-spectrum antibiotics with Zosyn and Zyvox until cultures are back check sputum urine and blood culture 06/19: Currently on 3 L nasal cannula. X-ray appears to be pulmonary edema with small pleural effusion. Will give 1 additional dose of furosemide 40 mg IV x1 now. Creatinine slowly normalizing. 06/20: Intermittently on and off BiPAP. Currently on bumetanide drip at 0.5 mg an hour. Diuresing nicely 1800 cc past 24 hours. Intermittently confused. Tolerating diet. Blood sugars are elevated. 06/21: Remains on nasal cannula. Remains on bumetanide drip at 0.5 mg an hour. Diuresed approximately 2100 cc past 24 hours. Complaining of generalized pain. Blood sugars remain elevated. Subjective 06/22: Afebrile. Bumetanide drip discontinued along with albumin. Diuresed approximately 2800 cc. Hold meds are currently being restarted. Objective Vital Signs / I&O: Vital Signs 06/21/18 13:05 06/21/18 13:15 06/21/18 13:30 Temperature Pulse Rate 64 71 64 Respiratory Rate 12 14 11 L Blood Pressure 178/77 H Pulse Oximetry 98 96 97 06/21/18 13:31 06/21/18 13:45 06/21/18 13:57 Temperature Pulse Rate 63 65 69 Respiratory Rate 11 L 22 22 Blood Pressure 165/70 H Pulse Oximetry 97 96 06/21/18 14:00 06/21/18 14:01 06/21/18 14:15 Temperature Pulse Rate 66 64 66 Respiratory Rate 18 13 12 Blood Pressure 155/65 H Pulse Oximetry 98 98 90 L 06/21/18 14:30 06/21/18 14:31 06/21/18 14:41 Temperature Pulse Rate 63 63 69 Respiratory Rate 21 19 28 H Blood Pressure 178/71 H 177/79 H Pulse Oximetry 97 97 96 06/21/18 14:45 06/21/18 14:51 06/21/18 14:57 Temperature Pulse Rate 66 65 63 Respiratory Rate 20 12 13 Blood Pressure 181/98 H 162/73 H Pulse Oximetry 96 97 97 06/21/18 15:00 06/21/18 15:15 06/21/18 15:30 Temperature Pulse Rate 63 68 66 Respiratory Rate 10 L 20 14 Blood Pressure 172/71 H Pulse Oximetry 97 96 96 06/21/18 15:31 06/21/18 15:45 06/21/18 15:48 Temperature Pulse Rate 65 63 63 Respiratory Rate 18 12 10 L Blood Pressure 172/75 H 168/111 H Pulse Oximetry 96 97 97 06/21/18 16:00 06/21/18 16:15 06/21/18 16:30 Temperature 98.4 F Pulse Rate 65 63 63 Respiratory Rate 9 L 10 L 24 Blood Pressure 182/93 H Pulse Oximetry 97 98 98 06/21/18 16:31 06/21/18 16:45 06/21/18 16:47 Temperature Pulse Rate 62 63 63 Respiratory Rate 16 11 L 11 L Blood Pressure 186/78 H 178/76 H Pulse Oximetry 98 98 98 06/21/18 17:00 06/21/18 18:00 06/21/18 20:00 Temperature 97.7 F Pulse Rate 62 64 69 Respiratory Rate 12 14 Blood Pressure 163/72 H 188/118 H Pulse Oximetry 98 96 06/21/18 20:26 06/21/18 22:00 06/22/18 00:00 Temperature 98 F Pulse Rate 67 58 L 57 L Respiratory Rate 16 25 H Blood Pressure 133/62 Pulse Oximetry 97 99 10/22/18 02:00 06/22/18 03:00 06/22/18 03:15 Temperature Pulse Rate 59 L 67 62 Respiratory Rate 16 11 L Blood Pressure 161/70 H Pulse Oximetry 97 98 06/22/18 03:30 06/22/18 03:45 06/22/18 04:00 Temperature 97.7 F Pulse Rate 63 62 62 Respiratory Rate 12 12 12 Blood Pressure 152/66 H 154/72 H Pulse Oximetry 98 98 98 06/22/18 04:15 06/22/18 04:30 06/22/18 04:45 Temperature Pulse Rate 62 66 66 Respiratory Rate 12 22 20 Blood Pressure 168/70 H Pulse Oximetry 98 97 98 06/22/18 05:00 06/22/18 05:15 06/22/18 05:30 Temperature Pulse Rate 68 70 66 Respiratory Rate 23 14 16 Blood Pressure 174/74 H 169/79 H Pulse Oximetry 98 99 98 06/22/18 05:45 06/22/18 06:00 06/22/18 06:15 Temperature Pulse Rate 64 68 76 Respiratory Rate 12 30 H 34 H Blood Pressure 194/75 H Pulse Oximetry 99 98 95 06/22/18 06:25 06/22/18 06:30 06/22/18 06:31 Temperature Pulse Rate 66 65 64 Respiratory Rate 16 12 10 L Blood Pressure 162/72 H Pulse Oximetry 99 99 06/22/18 06:45 06/22/18 07:00 06/22/18 07:15 Temperature Pulse Rate 62 62 61 Respiratory Rate 9 L 11 L 10 L Blood Pressure 150/67 H Pulse Oximetry 97 97 97 06/22/18 07:30 06/22/18 07:45 06/22/18 07:59 Temperature Pulse Rate 63 61 Respiratory Rate 11 L 10 L Blood Pressure 168/71 H Pulse Oximetry 97 97 98 06/22/18 08:00 06/22/18 08:15 06/22/18 08:30 Temperature Pulse Rate 60 61 60 Respiratory Rate 8 L 11 L 10 L Blood Pressure 150/66 H Pulse Oximetry 98 98 98 06/22/18 08:31 06/22/18 08:45 06/22/18 09:00 Temperature Pulse Rate 60 61 66 Respiratory Rate 9 L 9 L 19 Blood Pressure 183/74 H Pulse Oximetry 99 98 97 06/22/18 09:01 10/22/18 09:15 06/22/18 09:30 Temperature Pulse Rate 66 67 69 Respiratory Rate 25 H 20 16 Blood Pressure 174/74 H Pulse Oximetry 98 98 98 06/22/18 09:31 06/22/18 09:45 06/22/18 10:00 Temperature Pulse Rate 70 63 63 Respiratory Rate 16 18 21 Blood Pressure 207/79 H Pulse Oximetry 98 98 99 06/22/18 10:01 06/22/18 10:15 Temperature Pulse Rate 61 61 Respiratory Rate 12 16 Blood Pressure 175/74 H Pulse Oximetry 100 99 Intake & Output 06/21/18 06/22/18 06/22/18 18:59 06:59 18:59 Intake Total 800 / 800 980 / 980 Output Total 1650 / 1650 1200 / 1200 Balance -850 / -850 -220 / -220 Weight 85 kg Intake: IV 450 / 450 500 / 500 Flexbumin 25% Inj 100 ML @ 60 100 / 100 100 / 100 mls/hr IV.SIG Q12H ANNE Rx#: [id number] Zyvox 600 mg Premix 300 ML @ 300 / 300 300 / 300 300 mls/hr IV.SIG Q12H ANNE Rx#: [id number] Zosyn 2.25 GM Premix 50 ML @ 50 / 50 100 / 100 100 mls/hr IV.SIG Q8H ANNE Rx#: [id number] Oral 350 / 350 480 / 480 Output: Urine 1650 / 1650 1200 / 1200 Other: # Incontinent Voids 1 Date of Last Bowel Movement 06/19/18 06/22/18 06/22/18 # Bowel Movements 0 2 Result Diagrams: 06/22/18 06:33 06/22/18 06:33 Other Results: Microbiology 06/18/18 14:00 Blood - Peripheral Aerobic Blood Culture - Preliminary No growth in 4 days 06/18/18 14:00 Blood - Peripheral Anaerobic Blood Culture - Preliminary No growth in 4 days 06/18/18 13:54 Blood - Peripheral Aerobic Blood Culture - Preliminary No growth in 4 days 06/18/18 13:54 Blood - Peripheral Anaerobic Blood Culture - Preliminary No growth in 4 days 06/08/18 17:45 Catheterized Urine Urine Culture - Final Lisbeth glabrata 06/05/18 19:50 Blood - Peripheral Aerobic Blood Culture - Final No growth in 5 days 06/05/18 19:50 Blood - Peripheral Anaerobic Blood Culture - Final No growth in 5 days 06/05/18 19:58 Blood - Peripheral Aerobic Blood Culture - Final No growth in 5 days 06/05/18 19:58 Blood - Peripheral Anaerobic Blood Culture - Final No growth in 5 days 06/06/18 06:15 Catheterized Urine Urine Culture - Final Lisbeth glabrata 05/29/18 04:40 Blood - Peripheral Aerobic Blood Culture - Final No growth in 5 days 05/29/18 04:40 Blood - Peripheral Anaerobic Blood Culture - Final No growth in 5 days 05/29/18 04:40 Blood - Peripheral Aerobic Blood Culture - Final No growth in 5 days 05/29/18 04:40 Blood - Peripheral Anaerobic Blood Culture - Final No growth in 5 days 05/28/18 18:40 Stool Stool Occult Blood (SARAHI) - Final Hemoccult positive 05/20/18 03:15 Blood - Peripheral Aerobic Blood Culture - Final No growth in 5 days 05/20/18 03:15 Blood - Peripheral Anaerobic Blood Culture - Final No growth in 5 days 05/20/18 03:10 Blood - Peripheral Aerobic Blood Culture - Final No growth in 5 days 05/20/18 03:10 Blood - Peripheral Anaerobic Blood Culture - Final No growth in 5 days 05/20/18 16:35 Sputum - Endotracheal Gram Stain - Final 05/20/18 16:35 Sputum - Endotracheal Sputum Culture - Final No growth in 48 hours 05/20/18 15:30 Nasal Wash Influenza Types A,B Antigen - Final Negative for FLU A and B antigen Infection due to influenza A or B cannot be ruled out since the antigen present in the sample may be below the detection limit of the test. Imaging: ITS Impressions Abdomen X-Ray 05/20/18 02:10 CONCLUSION: Nonspecific, benign abdomen appearance. Abdomen/Pelvis CT 05/20/18 02:10 CONCLUSION: Rectal fecal impaction and likely mild proctitis Head CT 05/21/18 19:41 CONCLUSION: 1. No acute findings. Stable exam since May 20. Chronic white matter ischemic changes. Retention cyst right maxillary sinus. . Abdomen/Pelvis CTA 05/27/18 00:00 CONCLUSION: 1. There is severe atherosclerotic disease of the aorta. Atherosclerotic disease is present within the superior mesenteric artery but no high-grade stenosis or occlusion is visualized on the arterial side of the mesenteric vasculature. Please note that the venous mesenteric structures are not well evaluated on this examination timed for arterial enhancement. Additionally, there are no secondary findings to suggest mesenteric ischemia including no intramural air. 2. Wall thickening of the rectum suggesting a proctitis. 3. New small bilateral pleural effusions and new small volume of free fluid in the abdomen and pelvis. Also, anasarca is new. Abdomen/Bladder Ultrasound 06/08/18 00:00 CONCLUSION: 1. Negative renal sonogram. No obstruction observed. Venous Doppler Study 06/13/18 00:00 CONCLUSION: 1. The study is negative for bilateral lower extremity deep venous thrombosis. Chest X-Ray 06/21/18 06:00 CONCLUSION: Persistent bibasilar consolidation. Objective Remarks: GENERAL: 68-year-old female sitting up in [facility] bed in no acute distress but confused. SKIN: Warm and dry. No rash HEAD: Atraumatic. Normocephalic. EYES: Pupils equal and round. No scleral icterus. ENT: No nasal bleeding or discharge. NECK: Trachea midline. No JVD. CARDIOVASCULAR: Regular rate and rhythm. S1, S2 no S4. 1/6 systolic murmur left sternal border. RESPIRATORY: Diminished air entry at the bases with bibasilar crackles bilateral expiratory wheezes use. GASTROINTESTINAL: Abdomen mildly distended, mild diffuse tenderness MUSCULOSKELETAL: Trace to 1+ edema bilateral lower extremities.. Complaining of tenderness. Negative Doppler ultrasound 06/13 NEUROLOGICAL: Alert awake strength appears equal symmetric.. Moves all extremities spontaneously. No significant focal neurological deficits. Assessment and Plan - Assessment and Plan Plan: Neuro/Psych: Metabolic encephalopathy Depression/anxiety disorder NOS Peripheral neuropathy Chronic benzodiazepine use on alprazolam 0.5 mg twice daily at home Oxycodone/acetaminophen 10/325 1 to 2 tabs as needed for pain Continue renally dosed gabapentin currently 200 mg every [address] brain 05/20 and 05/21 revealed no acute intracranial findings Alprazolam 0.25 mg every 6 hours as needed anxiety. CV: Mild pulmonary edema Essential hypertension Hyperlipidemia Questionable atrial septal defect on echocardiogram 04/18 2D echocardiogram time revealed EF 65%. LVH. Essentially normal pulmonary arterial pressures. Continue hydralazine 100 mg 3 times daily, carvedilol 25 mg twice daily and amlodipine 5 mg daily and isosorbide dinitrate 20 mg 3 times daily Started on bumetanide drip at 0.5 mg/h per nephrology attempt to diurese. Discontinue 06/22 On atorvastatin 40 mg daily for dyslipidemia. Holding anticoagulation and antiplatelet therapy due to bleeding per GI recommendations Resp: Acute hypoxemic and hypercarbic respiratory failure Right lower lobe pneumonia COPD with acute exacerbation History of pulmonary embolism on chronic rivaroxaban Initiated on BiPAP 08/05. Currently she is on cannula 3 L Hold prednisone 20 mg twice daily continue methylprednisolone succinate wean to 40 mg every 12 hours Extubated 05/21 previously Albuterol/ipratropium aerosols every 6 hours with albuterol aerosols every 2 as needed for dyspnea Continue budesonide/formoterol 160/4.5 2 puffs twice daily GI/HEME: Ischemic colitis, colonoscopy 05/[address] Porter Severe erythematous gastritis, esophagitis on EGD 05/27 GI bleeding Fecal impaction, resolved Disimpacted in the ED. Hypoalbuminemia Elevated lipase of unclear significance Continue pantoprazole 40 mg twice daily ADA diet 2000/mechanical soft with chopped meats CT abdomen pelvis 05/27no pneumatosis. There is SMA atherosclerosis without high-grade stenosis. EGD and colonoscopy 05/27 demonstrated severe erythematous gastritis, esophagitis , diverticulitis, sigmoid ischemic colitis. Developed acute GI bleeding with hemorrhagic shock on 05/28 after receiving dose of rivaroxaban. Held since Endo: Hyperglycemia Chronic prednisone use -prednisone 10 mg twice daily. Bedside glucose every AC/at bedtime with medium dose insulin sliding scale aspart insulin as indicated. On insulin detemir 10 units subcu twice daily continued FEN/Renal: Acute kidney injury History of anterior urethral stricture Baseline creatinine around 1.1. Today 2.4. CT abdomen/pelvis revealed no hydronephrosis. Negative urine eosinophils. Avoid nephrotoxic medication. ID: Healthcare associated pneumonia Sepsis Lisbeth glabrata UTI Start piperacillin/tazobactam and linezolid #4, follow-up blood urine and sputum culture Urine culture 06/08/2018 had been positive for Lisbeth glabrata and patient had been on Diflucan (Even though C Glabrata) Repeat urine culture if positive for Lisbeth glabrata change to micafungin Access -PIV. Central line if indicated Prophylaxis -GI -pantoprazole 40 BID -DVT-SCD/holding pharmacological prophylaxis in light of GI bleed Level 2 follow-up.
[2018-06-22] MEDS: Insulin Detemir Inj 1,000 UNIT/10 ML Vial SQ SCH ×2 (13:08→21:13)
[2018-06-22] MEDS: amLODIPine 5 MG Tablet PO SCH (13:08)
[2018-06-22] MEDS: Bumetanide Inj 25 MG/100 ML BAG IV.CONT SCH (18:41)
--- NOTE | 2018-06-22 18:58 | P.PN ---
Subjective Interval history: Alert and comfortable. On O2 3 L. Good output with Bumex. CXR stable with basal infiltrates. Physical Exam Vital signs: Vital Signs 06/21/18 20:00 06/21/18 20:26 06/21/18 22:00 Temperature 97.7 F Pulse Rate 69 67 58 L Respiratory Rate 14 16 Blood Pressure 188/118 H Pulse Oximetry 96 97 06/22/18 00:00 06/22/18 02:00 06/22/18 03:00 Temperature 98 F Pulse Rate 57 L 59 L 67 Respiratory Rate 25 H 16 Blood Pressure 133/62 161/70 H Pulse Oximetry 99 97 06/22/18 03:15 06/22/18 03:30 06/22/18 03:45 Temperature Pulse Rate 62 63 62 Respiratory Rate 11 L 12 12 Blood Pressure 152/66 H Pulse Oximetry 98 98 98 06/22/18 04:00 06/22/18 04:15 06/22/18 04:30 Temperature 97.7 F Pulse Rate 62 62 66 Respiratory Rate 12 12 22 Blood Pressure 154/72 H 168/70 H Pulse Oximetry 98 98 97 06/22/18 04:45 06/22/18 05:00 06/22/18 05:15 Temperature Pulse Rate 66 68 70 Respiratory Rate 20 23 14 Blood Pressure 174/74 H Pulse Oximetry 98 98 99 06/22/18 05:30 06/22/18 05:45 06/22/18 06:00 Temperature Pulse Rate 66 64 68 Respiratory Rate 16 12 30 H Blood Pressure 169/79 H 194/75 H Pulse Oximetry 98 99 98 06/22/18 06:15 06/22/18 06:25 06/22/18 06:30 Temperature Pulse Rate 76 66 65 Respiratory Rate 34 H 16 12 Blood Pressure Pulse Oximetry 95 99 06/22/18 06:31 06/22/18 06:45 06/22/18 07:00 Temperature Pulse Rate 64 62 62 Respiratory Rate 10 L 9 L 11 L Blood Pressure 162/72 H 150/67 H Pulse Oximetry 99 97 97 06/22/18 07:15 06/22/18 07:30 06/22/18 07:45 Temperature Pulse Rate 61 63 61 Respiratory Rate 10 L 11 L 10 L Blood Pressure 168/71 H Pulse Oximetry 97 97 97 06/22/18 07:59 06/22/18 08:00 06/22/18 08:15 Temperature Pulse Rate 60 61 Respiratory Rate 8 L 11 L Blood Pressure 150/66 H Pulse Oximetry 98 98 98 06/22/18 08:30 06/22/18 08:31 06/22/18 08:45 Temperature Pulse Rate 60 60 61 Respiratory Rate 10 L 9 L 9 L Blood Pressure 183/74 H Pulse Oximetry 98 99 98 06/22/18 09:00 06/22/18 09:01 06/22/18 09:15 Temperature Pulse Rate 66 66 67 Respiratory Rate 19 25 H 20 Blood Pressure 174/74 H Pulse Oximetry 97 98 98 06/22/18 09:30 06/22/18 09:31 06/22/18 09:45 Temperature Pulse Rate 69 70 63 Respiratory Rate 16 16 18 Blood Pressure 207/79 H Pulse Oximetry 98 98 98 06/22/18 10:00 06/22/18 10:01 06/22/18 10:15 Temperature Pulse Rate 63 61 61 Respiratory Rate 21 12 16 Blood Pressure 175/74 H Pulse Oximetry 99 100 99 06/22/18 10:30 06/22/18 10:31 06/22/18 10:45 Temperature Pulse Rate 61 61 61 Respiratory Rate 19 19 19 Blood Pressure 165/68 H 179/74 H Pulse Oximetry 99 100 100 06/22/18 11:00 06/22/18 11:15 06/22/18 11:30 Temperature Pulse Rate 66 61 62 Respiratory Rate 22 17 17 Blood Pressure 179/74 H Pulse Oximetry 100 100 100 06/22/18 11:31 06/22/18 11:45 06/22/18 12:00 Temperature Pulse Rate 62 67 64 Respiratory Rate 20 24 16 Blood Pressure 177/73 H 187/75 H Pulse Oximetry 100 99 99 06/22/18 12:15 06/22/18 12:30 06/22/18 12:31 Temperature Pulse Rate 63 67 63 Respiratory Rate 22 27 H 21 Blood Pressure 163/71 H Pulse Oximetry 100 99 98 06/22/18 12:45 06/22/18 13:00 06/22/18 13:01 Temperature Pulse Rate 69 64 63 Respiratory Rate 24 23 21 Blood Pressure 132/59 L Pulse Oximetry 99 99 99 06/22/18 13:15 06/22/18 13:17 06/22/18 13:30 Temperature Pulse Rate 66 67 65 Respiratory Rate 26 H 21 14 Blood Pressure 126/60 Pulse Oximetry 98 100 06/22/18 13:45 06/22/18 14:00 06/22/18 14:15 Temperature Pulse Rate 64 64 63 Respiratory Rate 13 10 L 10 L Blood Pressure 147/60 H Pulse Oximetry 97 97 98 06/22/18 14:30 06/22/18 14:45 06/22/18 15:00 Temperature Pulse Rate 64 63 64 Respiratory Rate 11 L 9 L 12 Blood Pressure 125/58 L Pulse Oximetry 97 98 98 06/22/18 15:01 06/22/18 15:15 06/22/18 15:30 Temperature Pulse Rate 64 63 66 Respiratory Rate 10 L 13 20 Blood Pressure 107/53 L 165/69 H Pulse Oximetry 98 98 98 06/22/18 15:45 06/22/18 16:00 06/22/18 16:15 Temperature Pulse Rate 65 68 69 Respiratory Rate 22 24 28 H Blood Pressure 148/67 H Pulse Oximetry 98 97 97 06/22/18 16:30 06/22/18 16:45 06/22/18 17:00 Temperature Pulse Rate 66 65 66 Respiratory Rate 24 23 18 Blood Pressure 134/61 144/63 H Pulse Oximetry 98 97 98 06/22/18 17:15 06/22/18 17:30 06/22/18 17:45 Temperature Pulse Rate 63 74 66 Respiratory Rate 13 26 H 12 Blood Pressure Pulse Oximetry 99 91 L 98 06/22/18 18:00 06/22/18 18:15 06/22/18 18:30 Temperature Pulse Rate 69 65 70 Respiratory Rate 13 11 L 15 Blood Pressure 134/63 139/60 Pulse Oximetry 89 L 89 L 98 06/22/18 18:41 Temperature Pulse Rate 79 Respiratory Rate 20 Blood Pressure Pulse Oximetry Intake & Output 06/21/18 06/22/18 06/22/18 18:59 06:59 18:59 Intake Total 800 / 800 980 / 980 400 / 400 Output Total 1650 / 1650 1200 / 1200 1400 / 1400 Balance -850 / -850 -220 / -220 -1000 / -1000 Weight 85 kg Intake: IV 450 / 450 500 / 500 400 / 400 Bumex Inj 25 mg In 100 ml @ 0.5 50 / 50 MG/HR 2 mls/hr IV.CONT .Q24H [facility] Rx#:[id number] Flexbumin 25% Inj 100 ML @ 60 100 / 100 100 / 100 mls/hr IV.SIG Q12H [facility] Rx#: [id number] Zyvox 600 mg Premix 300 ML @ 300 / 300 300 / 300 300 / 300 300 mls/hr IV.SIG Q12H [facility] Rx#: [id number] Zosyn 2.25 GM Premix 50 ML @ 50 / 50 100 / 100 50 / 50 100 mls/hr IV.SIG Q8H [facility] Rx#: [id number] Oral 350 / 350 480 / 480 Output: Urine 1650 / 1650 1200 / 1200 1400 / 1400 Other: # Incontinent Voids 1 Date of Last Bowel Movement 06/19/18 06/22/18 06/22/18 # Bowel Movements 0 2 Narrative: Chronically ill-appearing elderly female in NAD.Confused. SKIN: Cool and dry. Pale. HEENT: Pupils equal and round. Pale conjunctiva. Throat clear. NECK: Supple no tender LAD or JVD. HEART: RRR no m/r/g. LUNGS: Decreased air entry, BI basal crackles and occ Wheezes ABDOMEN: +BS, soft, nondistended. Obese and No organomegaly. EXTREMITIES: 1 + LE edema. Diminished pedal pulses. NEURO: Awake confused. No focal deficits. - Urinary Catheter Management Indwelling Urethral Catheter Cath placed during this visit: yes, but has since been removed by the nurse Reason for continuing: Continue criteria not met Insertion date: 06/08/18 Insertion time: 16:15 Removal date: 06/15/18 Removal time: 12:00 Results - Labs CBC & Chem 7: 06/22/18 06:33 06/22/18 06:33 Laboratory Results - last 24 hr 06/21/18 06/22/18 06/22/18 19:57 06:33 06:33 WBC 12.3 H RBC 2.75 L Hgb 8.2 L Hct 24.3 L MCV 88.4 MCH 29.7 MCHC 33.6 RDW 16.9 Plt Count 238 MPV 9.1 Sodium 144 Potassium 3.2 L Chloride 97 L Carbon Dioxide 34.1 H Anion Gap 13 BUN 84 H Creatinine 2.42 H Estimated GFR 20 L POC Glucose 289 H Random Glucose 372 H Calcium 8.9 Phosphorus 4.2 Magnesium 2.2 Total Bilirubin 0.8 AST 5 L ALT 17 Alkaline Phosphatase 62 Total Protein 6.6 Albumin 4.4 10/22/18 10/22/18 10/22/18 09:08 12:26 17:37 WBC RBC Hgb Hct MCV MCH MCHC RDW Plt Count MPV Sodium Potassium Chloride Carbon Dioxide Anion Gap BUN Creatinine Estimated GFR POC Glucose 405 H 326 H 351 H Random Glucose Calcium Phosphorus Magnesium Total Bilirubin AST ALT Alkaline Phosphatase Total Protein Albumin Microbiology 06/18/18 14:00 Blood - Peripheral Aerobic Blood Culture - Preliminary No growth in 4 days 06/18/18 14:00 Blood - Peripheral Anaerobic Blood Culture - Preliminary No growth in 4 days 06/18/18 13:54 Blood - Peripheral Aerobic Blood Culture - Preliminary No growth in 4 days 06/18/18 13:54 Blood - Peripheral Anaerobic Blood Culture - Preliminary No growth in 4 days - Procedures central line placement. Assessment and Plan - Assessment (1) GI bleed requiring more than 4 units of blood in 24 hours, ICU, or surgery Code(s): K92.2 - Gastrointestinal hemorrhage, unspecified Status: Acute (2) Anemia Code(s): D64.9 - Anemia, unspecified Status: Acute (3) Shock Code(s): R57.9 - Shock, unspecified Status: Acute (4) Major depression, recurrent Code(s): F33.9 - Major depressive disorder, recurrent, unspecified Status: Acute (5) Sepsis Code(s): A41.9 - Sepsis, unspecified organism Status: Acute (6) Atelectasis Code(s): J98.11 - Atelectasis Status: Acute (7) Respiratory failure Code(s): J96.90 - Respiratory failure, unspecified, unspecified whether with hypoxia or hypercapnia Status: Acute (8) Aspiration pneumonia Code(s): J69.0 - Pneumonitis due to inhalation of food and vomit Status: Acute (9) Mixed personality disorder Code(s): F60.89 - Other specific personality disorders Status: Suspected - Plan 1. O2 3 L N/C 2. CBC, BMP in am. 3. Duonebs qid and Q4H PRN 4. PT evaluation 5. Will cont Antibiotics Zosyn/ Zyvox. 6. Taper Solumedrol to 20 mg BID 7. Symbicort 160/4.5 mcg , 2puffs BID 8. CXR in am (2) Anemia Qualifiers: Other causes of anemia: acute posthemorrhagic (7) Respiratory failure Qualifiers: Chronicity: acute on chronic
[2018-06-22] MEDS: traZODone 50 MG Tablet PO SCH (21:12)
[2018-06-23] MEDS: Gabapentin 100 MG Capsule PO SCH ×3 (02:19→18:32)
[2018-06-23] MEDS: Morphine Sulfate Inj 2 MG/ML Vial IV.PUSH PRN ×2 (06:19→19:45)
[2018-06-23] MEDS: Piperacil/Tazo 2.25 GM Premix 50 ML IV.SIG SCH (06:20)
[2018-06-23 07:39] LABS: Alanine Aminotransferase 20 U/L (10-53); Albumin 4.4 g/dL (3.4-5.0); Alkaline Phosphatase 76 U/L (45-117); Anion Gap 11 meq/L (5-15); Aspartate Aminotransferase 13 U/L (15-37); Blood Urea Nitrogen 86 mg/dL (7-18); Calcium 9.4 mg/dL (8.5-10.1); Carbon Dioxide 32.1 meq/L (21.0-32.0); Chloride 96 meq/L (98-107); Glomerular Filtration Rate 20 mL/min (>89); Glucose,Random 263 mg/dL (74-106); Magnesium 2.3 mg/dL (1.5-2.5); Phosphorus 3.5 mg/dL (2.5-4.9); Potassium 4.6 meq/L (3.5-5.1); Sodium 139 meq/L (136-145); Total Protein 7.4 g/dL (6.4-8.2)
[2018-06-23] MEDS: amLODIPine 5 MG Tablet PO SCH (09:11)
[2018-06-23] MEDS: MethylPREDNISolone Sod Succinate Inj 40 MG/ML Vial IV.PUSH SCH (09:11)
[2018-06-23] MEDS: Carvedilol 12.5 MG Tablet PO SCH ×2 (09:12→21:03)
[2018-06-23] MEDS: Insulin NovoLOG Aspart Correctional Sugar Inj SQ SCH ×4 (09:12→21:05)
[2018-06-23] MEDS: guaiFENesin 600 MG ER Tablet PO SCH ×2 (09:12→21:03)
[2018-06-23] MEDS: Insulin Detemir Inj 1,000 UNIT/10 ML Vial SQ SCH ×2 (09:12→21:04)
[2018-06-23] MEDS: Senna/Docusate Sodium 8.6/50 MG Tablet PO SCH ×2 (09:12→21:05)
[2018-06-23] MEDS: Budesonide-Formoterol 160/4.5 MCG 6 GM Inhaler INH SCH ×2 (09:13→21:05)
[2018-06-23] MEDS: Polyvinyl Alcohol/Povidone PF Opth Drops 0.4 ML Dropperette EACH EYE SCH ×2 (09:13→21:04)
[2018-06-23] MEDS: Mupirocin 2% Nasal Oint Topical Syringe EACH NARE SCH ×2 (10:08→21:03)
[2018-06-23] MEDS: Lactic Acid (Ammonium Lactate) 12% Lotion 225 GM Bottle TOPICAL SCH (10:08)
[2018-06-23 11:01] LABS: Hematocrit 29.9 % (35.0-46.0); Mean Corpuscular HGB Conc 33.5 % (32.0-36.0); Mean Corpuscular Hemoglobin 29.7 pg (27.0-34.0); Mean Corpuscular Volume 88.7 fL (80.0-100.0); Mean Platelet Volume 9.1 fL (7.0-11.0); Platelet Count 245 th/mm3 (150-450); Red Blood Count 3.37 mil/mm3 (4.00-5.30); Red Cell Distribution Width 17.3 % (11.6-17.2); White Blood Count 17.4 th/mm3 (4.0-11.0)
--- NOTE | 2018-06-23 12:30 | P.PN ---
Subjective Interval history: Much improved and on O2 2 l. No wheezing. Physical Exam Vital signs: Vital Signs 06/22/18 12:30 06/22/18 12:31 06/22/18 12:45 Temperature Pulse Rate 67 63 69 Respiratory Rate 27 H 21 24 Blood Pressure 163/71 H Pulse Oximetry 99 98 99 06/22/18 13:00 06/22/18 13:01 06/22/18 13:15 Temperature Pulse Rate 64 63 66 Respiratory Rate 23 21 26 H Blood Pressure 132/59 L Pulse Oximetry 99 99 98 06/22/18 13:17 06/22/18 13:30 06/22/18 13:45 Temperature Pulse Rate 67 65 64 Respiratory Rate 21 14 13 Blood Pressure 126/60 Pulse Oximetry 100 97 06/22/18 14:00 06/22/18 14:15 06/22/18 14:30 Temperature Pulse Rate 64 63 64 Respiratory Rate 10 L 10 L 11 L Blood Pressure 147/60 H 125/58 L Pulse Oximetry 97 98 97 06/22/18 14:45 06/22/18 15:00 06/22/18 15:01 Temperature Pulse Rate 63 64 64 Respiratory Rate 9 L 12 10 L Blood Pressure 107/53 L Pulse Oximetry 98 98 98 06/22/18 15:15 06/22/18 15:30 06/22/18 15:45 Temperature Pulse Rate 63 66 65 Respiratory Rate 13 20 22 Blood Pressure 165/69 H Pulse Oximetry 98 98 98 06/22/18 16:00 06/22/18 16:15 06/22/18 16:30 Temperature Pulse Rate 68 69 66 Respiratory Rate 24 28 H 24 Blood Pressure 148/67 H 134/61 Pulse Oximetry 97 97 98 06/22/18 16:45 06/22/18 17:00 06/22/18 17:15 Temperature Pulse Rate 65 66 63 Respiratory Rate 23 18 13 Blood Pressure 144/63 H Pulse Oximetry 97 98 99 06/22/18 17:30 06/22/18 17:45 06/22/18 18:00 Temperature Pulse Rate 74 66 69 Respiratory Rate 26 H 12 13 Blood Pressure 134/63 Pulse Oximetry 91 L 98 89 L 06/22/18 18:15 06/22/18 18:30 06/22/18 18:41 Temperature Pulse Rate 65 70 79 Respiratory Rate 11 L 15 20 Blood Pressure 139/60 Pulse Oximetry 89 L 98 06/22/18 20:00 06/22/18 20:20 06/22/18 20:30 Temperature 98.0 F Pulse Rate 63 62 Respiratory Rate 20 11 L Blood Pressure Pulse Oximetry 98 96 06/22/18 20:45 06/22/18 21:00 06/22/18 21:01 Temperature Pulse Rate 62 62 62 Respiratory Rate 11 L 11 L 11 L Blood Pressure 130/58 L Pulse Oximetry 97 96 96 06/22/18 21:15 06/22/18 21:30 06/22/18 21:45 Temperature Pulse Rate 63 65 62 Respiratory Rate 13 10 L 11 L Blood Pressure 146/65 H Pulse Oximetry 97 97 98 06/22/18 22:00 06/22/18 22:15 06/22/18 22:30 Temperature Pulse Rate 62 61 70 Respiratory Rate 12 12 11 L Blood Pressure 146/62 H 162/70 H Pulse Oximetry 97 98 98 06/22/18 22:45 06/22/18 23:00 06/22/18 23:01 Temperature Pulse Rate 61 61 61 Respiratory Rate 11 L 11 L 12 Blood Pressure 142/60 H Pulse Oximetry 98 98 98 06/22/18 23:15 06/22/18 23:30 06/22/18 23:45 Temperature Pulse Rate 62 61 60 Respiratory Rate 11 L 11 L 12 Blood Pressure 146/68 H Pulse Oximetry 97 98 99 06/23/18 00:00 06/23/18 00:15 06/23/18 00:30 Temperature Pulse Rate 63 61 62 Respiratory Rate 11 L 10 L 11 L Blood Pressure 165/70 H Pulse Oximetry 97 98 98 06/23/18 00:31 06/23/18 00:45 06/23/18 01:00 Temperature Pulse Rate 62 62 68 Respiratory Rate 11 L 11 L 12 Blood Pressure 167/67 H 173/71 H Pulse Oximetry 98 98 97 06/23/18 01:15 06/23/18 01:30 06/23/18 01:31 Temperature Pulse Rate 66 64 80 Respiratory Rate 22 14 20 Blood Pressure 161/65 H Pulse Oximetry 97 97 97 06/23/18 01:45 06/23/18 02:00 06/23/18 02:01 Temperature Pulse Rate 63 60 64 Respiratory Rate 12 14 16 Blood Pressure 143/62 H Pulse Oximetry 98 98 98 06/23/18 02:15 06/23/18 02:30 06/23/18 02:45 Temperature Pulse Rate 65 60 61 Respiratory Rate 22 14 19 Blood Pressure 146/65 H Pulse Oximetry 96 99 93 L 06/23/18 03:00 06/23/18 03:15 06/23/18 03:30 Temperature Pulse Rate 60 60 59 L Respiratory Rate 12 12 11 L Blood Pressure 160/68 H Pulse Oximetry 94 L 94 L 94 L 06/23/18 03:31 06/23/18 03:45 06/23/18 04:00 Temperature Pulse Rate 60 58 L 62 Respiratory Rate 11 L 11 L 14 Blood Pressure 159/70 H 160/70 H Pulse Oximetry 94 L 95 95 06/23/18 04:15 06/23/18 04:30 06/23/18 04:45 Temperature Pulse Rate 60 59 L 62 Respiratory Rate 12 22 14 Blood Pressure 141/64 H Pulse Oximetry 93 L 96 96 06/23/18 05:00 06/23/18 05:01 06/23/18 05:15 Temperature Pulse Rate 61 61 61 Respiratory Rate 13 14 21 Blood Pressure 187/79 H Pulse Oximetry 96 95 98 06/23/18 05:19 06/23/18 05:30 06/23/18 05:45 Temperature Pulse Rate 64 69 70 Respiratory Rate 17 36 H 30 H Blood Pressure 137/70 Pulse Oximetry 98 93 L 93 L 06/23/18 06:00 06/23/18 06:01 06/23/18 06:15 Temperature Pulse Rate 62 61 62 Respiratory Rate 17 21 19 Blood Pressure 183/84 H Pulse Oximetry 98 98 95 06/23/18 06:30 06/23/18 06:44 06/23/18 06:45 Temperature Pulse Rate 61 60 60 Respiratory Rate 12 13 16 Blood Pressure 162/70 H Pulse Oximetry 96 98 97 06/23/18 07:00 06/23/18 07:15 06/23/18 07:30 Temperature Pulse Rate 60 59 L 59 L Respiratory Rate 13 19 16 Blood Pressure 139/66 Pulse Oximetry 97 96 96 06/23/18 07:45 06/23/18 08:00 06/23/18 08:01 Temperature Pulse Rate 59 L 61 60 Respiratory Rate 11 L 12 13 Blood Pressure 172/72 H Pulse Oximetry 98 98 98 06/23/18 08:15 06/23/18 08:30 06/23/18 08:45 Temperature Pulse Rate 60 60 60 Respiratory Rate 11 L 12 12 Blood Pressure Pulse Oximetry 98 97 98 06/23/18 09:00 06/23/18 09:01 06/23/18 09:13 Temperature Pulse Rate 60 60 75 Respiratory Rate 15 14 20 Blood Pressure 160/72 H Pulse Oximetry 98 98 98 06/23/18 09:15 06/23/18 09:30 06/23/18 09:45 Temperature Pulse Rate 63 69 65 Respiratory Rate 15 23 12 Blood Pressure Pulse Oximetry 99 98 96 06/23/18 10:00 06/23/18 10:01 06/23/18 10:15 Temperature Pulse Rate 68 67 90 Respiratory Rate 23 25 H 22 Blood Pressure 131/60 Pulse Oximetry 94 L 93 L 97 Intake & Output 06/22/18 06/23/18 06/23/18 18:59 06:59 18:59 Intake Total 400 / 400 880 / 880 Output Total 1400 / 1400 1000 / 1000 Balance -1000 / -1000 -120 / -120 Weight 80.1 kg Intake: IV 400 / 400 400 / 400 Bumex Inj 25 mg In 100 ml @ 0.5 50 / 50 MG/HR 2 mls/hr IV.CONT .Q24H [facility] Rx#:[id number] Zyvox 600 mg Premix 300 ML @ 300 / 300 300 / 300 300 mls/hr IV.SIG Q12H [facility] Rx#: [id number] Zosyn 2.25 GM Premix 50 ML @ 50 / 50 100 / 100 100 mls/hr IV.SIG Q8H [facility] Rx#: [id number] Oral 480 / 480 Output: Urine 1400 / 1400 1000 / 1000 Other: # Voids 3 Date of Last Bowel Movement 06/22/18 06/22/18 06/22/18 # Incontinent Bowel Movements 1 Narrative: Chronically ill-appearing elderly female in NAD.Confused. SKIN: Cool and dry. Pale. HEENT: Pupils equal and round. Pale conjunctiva. Throat clear. NECK: Supple no tender LAD or JVD. HEART: RRR no m/r/g. LUNGS: Few BI basal crackles and occ Wheezes ABDOMEN: +BS, soft, nondistended. Obese and No organomegaly. EXTREMITIES: No edema. Diminished pedal pulses. NEURO: Awake confused. No focal deficits. - Urinary Catheter Management Indwelling Urethral Catheter Cath placed during this visit: yes, but has since been removed by the nurse Reason for continuing: Continue criteria not met Insertion date: 06/08/18 Insertion time: 16:15 Removal date: 06/15/18 Removal time: 12:00 Results - Labs CBC & Chem 7: 06/23/18 10:38 06/23/18 06:29 Laboratory Results - last 24 hr 06/22/18 06/22/18 06/22/18 12:26 17:37 20:47 WBC RBC Hgb Hct MCV MCH MCHC RDW Plt Count MPV Sodium Potassium Chloride Carbon Dioxide Anion Gap BUN Creatinine Estimated GFR POC Glucose 326 H 351 H 294 H Random Glucose Calcium Phosphorus Magnesium Total Bilirubin AST ALT Alkaline Phosphatase Total Protein Albumin 06/23/18 06/23/18 06/23/18 06:29 09:05 10:38 WBC 17.4 H RBC 3.37 L Hgb 10.0 L Hct 29.9 L MCV 88.7 MCH 29.7 MCHC 33.5 RDW 17.3 H Plt Count 245 MPV 9.1 Sodium 139 Potassium 4.6 D Chloride 96 L Carbon Dioxide 32.1 H Anion Gap 11 BUN 86 H Creatinine 2.36 H Estimated GFR 20 L POC Glucose 257 H Random Glucose 263 H D Calcium 9.4 Phosphorus 3.5 Magnesium 2.3 Total Bilirubin 0.9 AST 13 L ALT 20 Alkaline Phosphatase 76 Total Protein 7.4 D Albumin 4.4 Microbiology 06/18/18 14:00 Blood - Peripheral Aerobic Blood Culture - Final No growth in 5 days 06/18/18 14:00 Blood - Peripheral Anaerobic Blood Culture - Final No growth in 5 days 06/18/18 13:54 Blood - Peripheral Aerobic Blood Culture - Final No growth in 5 days 06/18/18 13:54 Blood - Peripheral Anaerobic Blood Culture - Final No growth in 5 days - Procedures central line placement. Assessment and Plan - Assessment (1) GI bleed requiring more than 4 units of blood in 24 hours, ICU, or surgery Code(s): K92.2 - Gastrointestinal hemorrhage, unspecified Status: Acute (2) Anemia Code(s): D64.9 - Anemia, unspecified Status: Acute (3) Shock Code(s): R57.9 - Shock, unspecified Status: Acute (4) Major depression, recurrent Code(s): F33.9 - Major depressive disorder, recurrent, unspecified Status: Acute (5) Sepsis Code(s): A41.9 - Sepsis, unspecified organism Status: Acute (6) Atelectasis Code(s): J98.11 - Atelectasis Status: Acute (7) Respiratory failure Code(s): J96.90 - Respiratory failure, unspecified, unspecified whether with hypoxia or hypercapnia Status: Acute (8) Aspiration pneumonia Code(s): J69.0 - Pneumonitis due to inhalation of food and vomit Status: Acute (9) Mixed personality disorder Code(s): F60.89 - Other specific personality disorders Status: Suspected - Plan 1. O2 2 L N/C 2. Labs in am 3. Duonebs qid and Q4H PRN 4. PT evaluation 5. Will cont Antibiotics . 6. D/C Solumedrol 7. Symbicort 160/4.5 mcg , 2puffs BID 8. Add prednisone 10 mg BID (2) Anemia Qualifiers: Other causes of anemia: acute posthemorrhagic (7) Respiratory failure Qualifiers: Chronicity: acute on chronic
--- NOTE | 2018-06-23 12:55 | P.PNCC ---
Subjective Subjective Remarks/Hospital Course: 68-year-old female, with past medical history significant for COPD, PE, on blood thinners, presented initially with complaint of GI bleed. Per EMS report they were called to the skilled nursing for respiratory distress. On their arrival they state that she was not in respiratory distress but she was hypotensive with a systolic blood pressure in the 60s and delayed cap refill. Blood sugar was within normal limits. They noted dark bloody stools. They were able to secure an IV and route did give her about 350 cc of fluids prior to arrival. Her last blood pressure prior to arrival was in the 110s systolic. Patient was able to say that her abdomen hurts but was not answering too many more questions, she denied chest pain, shortness of breath. The CT of the abdomen showed only large amount of stool in the bowel and the patient passed a large volume of stool after manual disimpaction. Shortly after this she has lost consciousness, became unresponsive with GCS of 3 requiring emergent intubation for an airway protection by ED attending. 05/20: Patient still became more hypotensive. Receiving 2 units PRBCs and K Centra 4500 units x1 now. Minimal response on the ventilator. Did withdraw to vigorous stimuli/sternal rub. Afebrile. 05/21: Currently resting in bed in no acute distress. Plan for extubation today. Hemoglobins remained stable. 05/22: Afebrile. Currently on 8 L nasal cannula. Will provide 1 dose of bumetanide and attempt to diurese. Discontinue IV fluids. CT brain overnight revealed no acute intracranial findings. 05/29 Critical care medicine reconsulted for hemorrhagic shock. Patient underwent EGD/colonoscopy on 05/27 that demonstrated severe erythematous gastritis of gastric body and antrum, diverticulosis, large circumferential colitis in sigmoid colon. CTA 05/27 demonstrates atherosclerosis in the SMA without high-grade stenosis. She does have a history of pulmonary embolism that was treated with Xarelto. Her Xarelto had been on hold due to GI bleeding but was resumed today. This afternoon she began having large dark bowel movements with clots. She has crampy abdominal pain. She is nauseated but not vomiting. Hemoglobin dropped from 10.7 this morning to 7.[address] Castro has been consulted for evaluation of ischemic colitis. Upon his evaluation he found her hypotensive with a MAP of 50 and thus has requested critical care medicine consult due to hemorrhagic shock. I am placing art line and central line. She was started on Levophed 06/18: 68 years old female who has multiple medical problems as above, admitted since 05/19/18. [facility] [place] reconsulted for acute respiratory distress and impending respiratory failure with hypoxia. Evaluated by Dr. Garner on the floor stat ABG showed ph 7.27, pC02 55, PO2 73 02 sat 91 on 5 L nasal cannula. Patient was in severe respiratory distress, IV Lasix 40 mg given and patient was transferred to ICU. I evaluated patient immediately. Patient is tachypneic lethargic but wakes up easily. Chest x-ray shows bibasilar right more than left infiltrates indicating probable pneumonia. I will initiated patient on BiPAP 12/5 titrate FiO2 to keep saturation more than 90%. I will also hold prednisone start IV Solu-Medrol 60 mg every 8 hours continue breathing treatments and Symbicort. Broad-spectrum antibiotics with Zosyn and Zyvox until cultures are back check sputum urine and blood culture 06/19: Currently on 3 L nasal cannula. X-ray appears to be pulmonary edema with small pleural effusion. Will give 1 additional dose of furosemide 40 mg IV x1 now. Creatinine slowly normalizing. 06/20: Intermittently on and off BiPAP. Currently on bumetanide drip at 0.5 mg an hour. Diuresing nicely 1800 cc past 24 hours. Intermittently confused. Tolerating diet. Blood sugars are elevated. 06/21: Remains on nasal cannula. Remains on bumetanide drip at 0.5 mg an hour. Diuresed approximately 2100 cc past 24 hours. Complaining of generalized pain. Blood sugars remain elevated. 06/22: Afebrile. Bumetanide drip discontinued along with albumin. Diuresed approximately 2800 cc. Hold meds are currently being restarted. Subjective 06/23: Afebrile. Remains on nasal cannula. Receiving as needed narcotics and benzodiazepines. Objective Vital Signs / I&O: Vital Signs 06/22/18 13:00 06/22/18 13:01 06/22/18 13:15 Temperature Pulse Rate 64 63 66 Respiratory Rate 23 21 26 H Blood Pressure 132/59 L Pulse Oximetry 99 99 98 06/22/18 13:17 06/22/18 13:30 06/22/18 13:45 Temperature Pulse Rate 67 65 64 Respiratory Rate 21 14 13 Blood Pressure 126/60 Pulse Oximetry 100 97 06/22/18 14:00 06/22/18 14:15 06/22/18 14:30 Temperature Pulse Rate 64 63 64 Respiratory Rate 10 L 10 L 11 L Blood Pressure 147/60 H 125/58 L Pulse Oximetry 97 98 97 06/22/18 14:45 06/22/18 15:00 06/22/18 15:01 Temperature Pulse Rate 63 64 64 Respiratory Rate 9 L 12 10 L Blood Pressure 107/53 L Pulse Oximetry 98 98 98 06/22/18 15:15 06/22/18 15:30 06/22/18 15:45 Temperature Pulse Rate 63 66 65 Respiratory Rate 13 20 22 Blood Pressure 165/69 H Pulse Oximetry 98 98 98 06/22/18 16:00 06/22/18 16:15 06/22/18 16:30 Temperature Pulse Rate 68 69 66 Respiratory Rate 24 28 H 24 Blood Pressure 148/67 H 134/61 Pulse Oximetry 97 97 98 06/22/18 16:45 06/22/18 17:00 06/22/18 17:15 Temperature Pulse Rate 65 66 63 Respiratory Rate 23 18 13 Blood Pressure 144/63 H Pulse Oximetry 97 98 99 06/22/18 17:30 06/22/18 17:45 06/22/18 18:00 Temperature Pulse Rate 74 66 69 Respiratory Rate 26 H 12 13 Blood Pressure 134/63 Pulse Oximetry 91 L 98 89 L 06/22/18 18:15 06/22/18 18:30 06/22/18 18:41 Temperature Pulse Rate 65 70 79 Respiratory Rate 11 L 15 20 Blood Pressure 139/60 Pulse Oximetry 89 L 98 06/22/18 20:00 06/22/18 20:20 06/22/18 20:30 Temperature 98.0 F Pulse Rate 63 62 Respiratory Rate 20 11 L Blood Pressure Pulse Oximetry 98 96 06/22/18 20:45 06/22/18 21:00 06/22/18 21:01 Temperature Pulse Rate 62 62 62 Respiratory Rate 11 L 11 L 11 L Blood Pressure 130/58 L Pulse Oximetry 97 96 96 10/22/18 21:15 06/22/18 21:30 06/22/18 21:45 Temperature Pulse Rate 63 65 62 Respiratory Rate 13 10 L 11 L Blood Pressure 146/65 H Pulse Oximetry 97 97 98 06/22/18 22:00 06/22/18 22:15 06/22/18 22:30 Temperature Pulse Rate 62 61 70 Respiratory Rate 12 12 11 L Blood Pressure 146/62 H 162/70 H Pulse Oximetry 97 98 98 06/22/18 22:45 06/22/18 23:00 06/22/18 23:01 Temperature Pulse Rate 61 61 61 Respiratory Rate 11 L 11 L 12 Blood Pressure 142/60 H Pulse Oximetry 98 98 98 06/22/18 23:15 06/22/18 23:30 06/22/18 23:45 Temperature Pulse Rate 62 61 60 Respiratory Rate 11 L 11 L 12 Blood Pressure 146/68 H Pulse Oximetry 97 98 99 06/23/18 00:00 06/23/18 00:15 06/23/18 00:30 Temperature Pulse Rate 63 61 62 Respiratory Rate 11 L 10 L 11 L Blood Pressure 165/70 H Pulse Oximetry 97 98 98 06/23/18 00:31 06/23/18 00:45 06/23/18 01:00 Temperature Pulse Rate 62 62 68 Respiratory Rate 11 L 11 L 12 Blood Pressure 167/67 H 173/71 H Pulse Oximetry 98 98 97 06/23/18 01:15 06/23/18 01:30 06/23/18 01:31 Temperature Pulse Rate 66 64 80 Respiratory Rate 22 14 20 Blood Pressure 161/65 H Pulse Oximetry 97 97 97 06/23/18 01:45 06/23/18 02:00 06/23/18 02:01 Temperature Pulse Rate 63 60 64 Respiratory Rate 12 14 16 Blood Pressure 143/62 H Pulse Oximetry 98 98 98 06/23/18 02:15 06/23/18 02:30 06/23/18 02:45 Temperature Pulse Rate 65 60 61 Respiratory Rate 22 14 19 Blood Pressure 146/65 H Pulse Oximetry 96 99 93 L 06/23/18 03:00 06/23/18 03:15 06/23/18 03:30 Temperature Pulse Rate 60 60 59 L Respiratory Rate 12 12 11 L Blood Pressure 160/68 H Pulse Oximetry 94 L 94 L 94 L 06/23/18 03:31 06/23/18 03:45 06/23/18 04:00 Temperature Pulse Rate 60 58 L 62 Respiratory Rate 11 L 11 L 14 Blood Pressure 159/70 H 160/70 H Pulse Oximetry 94 L 95 95 06/23/18 04:15 06/23/18 04:30 06/23/18 04:45 Temperature Pulse Rate 60 59 L 62 Respiratory Rate 12 22 14 Blood Pressure 141/64 H Pulse Oximetry 93 L 96 96 06/23/18 05:00 06/23/18 05:01 06/23/18 05:15 Temperature Pulse Rate 61 61 61 Respiratory Rate 13 14 21 Blood Pressure 187/79 H Pulse Oximetry 96 95 98 06/23/18 05:19 06/23/18 05:30 06/23/18 05:45 Temperature Pulse Rate 64 69 70 Respiratory Rate 17 36 H 30 H Blood Pressure 137/70 Pulse Oximetry 98 93 L 93 L 06/23/18 06:00 06/23/18 06:01 06/23/18 06:15 Temperature Pulse Rate 62 61 62 Respiratory Rate 17 21 19 Blood Pressure 183/84 H Pulse Oximetry 98 98 95 06/23/18 06:30 06/23/18 06:44 06/23/18 06:45 Temperature Pulse Rate 61 60 60 Respiratory Rate 12 13 16 Blood Pressure 162/70 H Pulse Oximetry 96 98 97 06/23/18 07:00 06/23/18 07:15 06/23/18 07:30 Temperature Pulse Rate 60 59 L 59 L Respiratory Rate 13 19 16 Blood Pressure 139/66 Pulse Oximetry 97 96 96 06/23/18 07:45 06/23/18 08:00 06/23/18 08:01 Temperature Pulse Rate 59 L 61 60 Respiratory Rate 11 L 12 13 Blood Pressure 172/72 H Pulse Oximetry 98 98 98 06/23/18 08:15 06/23/18 08:30 06/23/18 08:45 Temperature Pulse Rate 60 60 60 Respiratory Rate 11 L 12 12 Blood Pressure Pulse Oximetry 98 97 98 06/23/18 09:00 06/23/18 09:01 06/23/18 09:13 Temperature Pulse Rate 60 60 75 Respiratory Rate 15 14 20 Blood Pressure 160/72 H Pulse Oximetry 98 98 98 06/23/18 09:15 06/23/18 09:30 06/23/18 09:45 Temperature Pulse Rate 63 69 65 Respiratory Rate 15 23 12 Blood Pressure Pulse Oximetry 99 98 96 06/23/18 10:00 06/23/18 10:01 06/23/18 10:15 Temperature Pulse Rate 68 67 90 Respiratory Rate 23 25 H 22 Blood Pressure 131/60 Pulse Oximetry 94 L 93 L 97 Intake & Output 06/22/18 06/23/18 06/23/18 18:59 06:59 18:59 Intake Total 400 / 400 880 / 880 Output Total 1400 / 1400 1000 / 1000 Balance -1000 / -1000 -120 / -120 Weight 80.1 kg Intake: IV 400 / 400 400 / 400 Bumex Inj 25 mg In 100 ml @ 0.5 50 / 50 MG/HR 2 mls/hr IV.CONT .Q24H ANNE Rx#:[id number] Zyvox 600 mg Premix 300 ML @ 300 / 300 300 / 300 300 mls/hr IV.SIG Q12H ANNE Rx#: [id number] Zosyn 2.25 GM Premix 50 ML @ 50 / 50 100 / 100 100 mls/hr IV.SIG Q8H ANNE Rx#: [id number] Oral 480 / 480 Output: Urine 1400 / 1400 1000 / 1000 Other: # Voids 3 Date of Last Bowel Movement 06/22/18 06/22/18 06/22/18 # Incontinent Bowel Movements 1 Result Diagrams: 06/23/18 10:38 06/23/18 06:29 Other Results: Microbiology 06/18/18 14:00 Blood - Peripheral Aerobic Blood Culture - Final No growth in 5 days 06/18/18 14:00 Blood - Peripheral Anaerobic Blood Culture - Final No growth in 5 days 06/18/18 13:54 Blood - Peripheral Aerobic Blood Culture - Final No growth in 5 days 06/18/18 13:54 Blood - Peripheral Anaerobic Blood Culture - Final No growth in 5 days 06/08/18 17:45 Catheterized Urine Urine Culture - Final Lisbeth glabrata 06/05/18 19:50 Blood - Peripheral Aerobic Blood Culture - Final No growth in 5 days 06/05/18 19:50 Blood - Peripheral Anaerobic Blood Culture - Final No growth in 5 days 06/05/18 19:58 Blood - Peripheral Aerobic Blood Culture - Final No growth in 5 days 06/05/18 19:58 Blood - Peripheral Anaerobic Blood Culture - Final No growth in 5 days 06/06/18 06:15 Catheterized Urine Urine Culture - Final Lisbeth glabrata 05/29/18 04:40 Blood - Peripheral Aerobic Blood Culture - Final No growth in 5 days 05/29/18 04:40 Blood - Peripheral Anaerobic Blood Culture - Final No growth in 5 days 05/29/18 04:40 Blood - Peripheral Aerobic Blood Culture - Final No growth in 5 days 05/29/18 04:40 Blood - Peripheral Anaerobic Blood Culture - Final No growth in 5 days 05/28/18 18:40 Stool Stool Occult Blood (SARAHI) - Final Hemoccult positive 05/20/18 03:15 Blood - Peripheral Aerobic Blood Culture - Final No growth in 5 days 05/20/18 03:15 Blood - Peripheral Anaerobic Blood Culture - Final No growth in 5 days 05/20/18 03:10 Blood - Peripheral Aerobic Blood Culture - Final No growth in 5 days 05/20/18 03:10 Blood - Peripheral Anaerobic Blood Culture - Final No growth in 5 days 05/20/18 16:35 Sputum - Endotracheal Gram Stain - Final 05/20/18 16:35 Sputum - Endotracheal Sputum Culture - Final No growth in 48 hours 05/20/18 15:30 Nasal Wash Influenza Types A,B Antigen - Final Negative for FLU A and B antigen Infection due to influenza A or B cannot be ruled out since the antigen present in the sample may be below the detection limit of the test. Imaging: Abdomen X-Ray 05/20/18 02:10 CONCLUSION: Nonspecific, benign abdomen appearance. Abdomen/Pelvis CT 05/20/18 02:10 CONCLUSION: Rectal fecal impaction and likely mild proctitis Chest X-Ray 05/20/18 02:10 CONCLUSION: Negative examination. Chest X-Ray 05/20/18 05:29 CONCLUSION: Satisfactory endotracheal tube positioning. Slight bibasilar parenchymal opacities. Head CT 05/20/18 05:44 CONCLUSION: No acute intracranial findings . Chest X-Ray 05/20/18 08:57 CONCLUSION: 1. Left IJ central line in the mid SVC without pneumothorax. Head CT 05/21/18 19:41 CONCLUSION: 1. No acute findings. Stable exam since May 20. Chronic white matter ischemic changes. Retention cyst right maxillary sinus. . Chest X-Ray 05/23/18 06:00 CONCLUSION: Worsening bibasilar parenchymal consolidation. Interim extubation and nasogastric tube removal. Chest X-Ray 05/26/18 09:08 CONCLUSION: Improving bibasilar infiltrates and interstitial edema. Abdomen/Pelvis CTA 05/27/18 00:00 CONCLUSION: 1. There is severe atherosclerotic disease of the aorta. Atherosclerotic disease is present within the superior mesenteric artery but no high-grade stenosis or occlusion is visualized on the arterial side of the mesenteric vasculature. Please note that the venous mesenteric structures are not well evaluated on this examination timed for arterial enhancement. Additionally, there are no secondary findings to suggest mesenteric ischemia including no intramural air. 2. Wall thickening of the rectum suggesting a proctitis. 3. New small bilateral pleural effusions and new small volume of free fluid in the abdomen and pelvis. Also, anasarca is new. Chest X-Ray 05/28/18 23:38 CONCLUSION: 1. New right IJ line with tip at the atriocaval junction. No pneumothorax. 2. Mild atelectasis and tiny effusions at both lung bases not significantly changed. Chest X-Ray 05/29/18 00:00 CONCLUSION: No change mild atelectasis and small effusions at each lung base. Chest X-Ray 05/31/18 00:00 CONCLUSION: Stable chest x-ray with small bilateral pleural effusions with associated volume loss and/or airspace consolidation. Chest X-Ray 06/05/18 00:00 CONCLUSION: Mild parenchymal consolidation and small effusions at each lung base not significantly changed. Abdomen/Bladder Ultrasound 06/08/18 00:00 CONCLUSION: 1. Negative renal sonogram. No obstruction observed. Chest X-Ray 06/12/18 00:00 CONCLUSION: Unchanged bibasal infiltrates and small effusions. Venous Doppler Study 06/13/18 00:00 CONCLUSION: 1. The study is negative for bilateral lower extremity deep venous thrombosis. Chest X-Ray 06/17/18 00:00 CONCLUSION: Cardiomegaly with probable moderate congestive failure. There is some improvement from comparison. Chest X-Ray 06/18/18 11:48 CONCLUSION: 1. Persistent pulmonary edema pattern with probable small bilateral pleural effusions. Chest X-Ray 06/20/18 06:00 CONCLUSION: 1. Bibasilar airspace disease. 2. Cardiomegaly Chest X-Ray 06/21/18 06:00 CONCLUSION: Persistent bibasilar consolidation. Objective Remarks: GENERAL: 68-year-old female sitting up in [facility] bed in no acute distress but confused. SKIN: Warm and dry. No rash HEAD: Atraumatic. Normocephalic. EYES: Pupils equal and round. No scleral icterus. ENT: No nasal bleeding or discharge. NECK: Trachea midline. No JVD. CARDIOVASCULAR: Regular rate and rhythm. S1, S2 no S4. 1/6 systolic murmur left sternal border. RESPIRATORY: Diminished air entry at the bases with bibasilar crackles bilateral expiratory wheezes use. GASTROINTESTINAL: Abdomen mildly distended, mild diffuse tenderness MUSCULOSKELETAL: Trace to 1+ edema bilateral lower extremities.. Complaining of tenderness. Negative Doppler ultrasound 06/13 NEUROLOGICAL: Alert awake strength appears equal symmetric.. Moves all extremities spontaneously. No significant focal neurological deficits. Assessment and Plan - Assessment and Plan Plan: Neuro/Psych: Metabolic encephalopathy Depression/anxiety disorder NOS Peripheral neuropathy Chronic benzodiazepine use on alprazolam 0.5 mg twice daily at home Oxycodone/acetaminophen 10/325 1 to 2 tabs as needed for pain Continue renally dosed gabapentin currently 200 mg every [address] brain 05/20 and 05/21 revealed no acute intracranial findings Alprazolam 0.25 mg every 6 hours as needed anxiety. CV: Mild pulmonary edema Essential hypertension Hyperlipidemia Questionable atrial septal defect on echocardiogram 04/18 2D echocardiogram time revealed EF 65%. LVH. Essentially normal pulmonary arterial pressures. Continue hydralazine 100 mg 3 times daily, carvedilol 25 mg twice daily and amlodipine 5 mg daily and isosorbide dinitrate 20 mg 3 times daily Started on bumetanide drip at 0.5 mg/h per nephrology attempt to diurese. Discontinue 06/22 On atorvastatin 40 mg daily for dyslipidemia. Holding anticoagulation and antiplatelet therapy due to bleeding per GI recommendations Resp: Acute hypoxemic and hypercarbic respiratory failure Right lower lobe pneumonia COPD with acute exacerbation History of pulmonary embolism on chronic rivaroxaban Initiated on BiPAP 08/05. Currently she is on cannula 3 L Hold prednisone 20 mg twice daily continue methylprednisolone succinate wean to 20 mg every 12 hours and discontinued 06/23 Extubated 05/21 previously Albuterol/ipratropium aerosols every 6 hours with albuterol aerosols every 2 as needed for dyspnea Continue budesonide/formoterol 160/4.5 2 puffs twice daily GI/HEME: Ischemic colitis, colonoscopy 05/[address] Porter Severe erythematous gastritis, esophagitis on EGD 05/27 GI bleeding Fecal impaction, resolved Disimpacted in the ED. Hypoalbuminemia Elevated lipase of unclear significance Leukocytosis Normocytic anemia Continue pantoprazole 40 mg twice daily ADA diet 1999/mechanical soft with chopped meats CT abdomen pelvis 05/27no pneumatosis. There is SMA atherosclerosis without high-grade stenosis. EGD and colonoscopy 05/27 demonstrated severe erythematous gastritis, esophagitis , diverticulitis, sigmoid ischemic colitis. Developed acute GI bleeding with hemorrhagic shock on 05/28 after receiving dose of rivaroxaban. Held since Endo: Hyperglycemia Chronic prednisone use -prednisone 10 mg twice daily. Bedside glucose every AC/at bedtime with medium dose insulin sliding scale aspart insulin as indicated. On insulin detemir 8 units subcu twice daily continued FEN/Renal: Acute kidney injury History of anterior urethral stricture Baseline creatinine around 1.1. Today 2.4. Is stable. Noted increasing BUN CT abdomen/pelvis revealed no hydronephrosis. Negative urine eosinophils. Avoid nephrotoxic medication. ID: Healthcare associated pneumonia Sepsis Lisbeth glabrata UTI Start piperacillin/tazobactam and linezolid #4, follow-up blood urine and sputum culture Urine culture 06/08/2018 had been positive for Lisbeth glabrata and patient had been on Diflucan (Even though C Glabrata) Repeat urine culture if positive for Lisbeth glabrata change to micafungin Access -PIV. Central line if indicated Prophylaxis -GI -pantoprazole 40 BID -DVT-SCD/holding pharmacological prophylaxis in light of GI bleed Level 2 follow-up.
[2018-06-23] MEDS: Piperacil/Tazo 3.375 GM Premix 50 ML IV.SIG SCH ×2 (15:27→18:32)
--- NOTE | 2018-06-23 15:35 | P.PNNP ---
Subjective Interval history: Patient on nasal cannula O2 feels tired Physical Exam Vital signs: Vital Signs 06/22/18 15:45 06/22/18 16:00 06/22/18 16:15 Temperature Pulse Rate 65 68 69 Respiratory Rate 22 24 28 H Blood Pressure 148/67 H Pulse Oximetry 98 97 97 06/22/18 16:30 06/22/18 16:45 06/22/18 17:00 Temperature Pulse Rate 66 65 66 Respiratory Rate 24 23 18 Blood Pressure 134/61 144/63 H Pulse Oximetry 98 97 98 06/22/18 17:15 06/22/18 17:30 06/22/18 17:45 Temperature Pulse Rate 63 74 66 Respiratory Rate 13 26 H 12 Blood Pressure Pulse Oximetry 99 91 L 98 06/22/18 18:00 06/22/18 18:15 06/22/18 18:30 Temperature Pulse Rate 69 65 70 Respiratory Rate 13 11 L 15 Blood Pressure 134/63 139/60 Pulse Oximetry 89 L 89 L 98 06/22/18 18:41 06/22/18 20:00 06/22/18 20:20 Temperature Pulse Rate 79 63 Respiratory Rate 20 20 Blood Pressure Pulse Oximetry 98 06/22/18 20:30 06/22/18 20:45 06/22/18 21:00 Temperature 98.0 F Pulse Rate 62 62 62 Respiratory Rate 11 L 11 L 11 L Blood Pressure Pulse Oximetry 96 97 96 06/22/18 21:01 06/22/18 21:15 06/22/18 21:30 Temperature Pulse Rate 62 63 65 Respiratory Rate 11 L 13 10 L Blood Pressure 130/58 L 146/65 H Pulse Oximetry 96 97 97 06/22/18 21:45 06/22/18 22:00 06/22/18 22:15 Temperature Pulse Rate 62 62 61 Respiratory Rate 11 L 12 12 Blood Pressure 146/62 H Pulse Oximetry 98 97 98 06/22/18 22:30 06/22/18 22:45 06/22/18 23:00 Temperature Pulse Rate 70 61 61 Respiratory Rate 11 L 11 L 11 L Blood Pressure 162/70 H Pulse Oximetry 98 98 98 06/22/18 23:01 06/22/18 23:15 06/22/18 23:30 Temperature Pulse Rate 61 62 61 Respiratory Rate 12 11 L 11 L Blood Pressure 142/60 H 146/68 H Pulse Oximetry 98 97 98 06/22/18 23:45 06/23/18 00:00 06/23/18 00:15 Temperature Pulse Rate 60 63 61 Respiratory Rate 12 11 L 10 L Blood Pressure 165/70 H Pulse Oximetry 99 97 98 06/23/18 00:30 06/23/18 00:31 06/23/18 00:45 Temperature Pulse Rate 62 62 62 Respiratory Rate 11 L 11 L 11 L Blood Pressure 167/67 H Pulse Oximetry 98 98 98 06/23/18 01:00 06/23/18 01:15 06/23/18 01:30 Temperature Pulse Rate 68 66 64 Respiratory Rate 12 22 14 Blood Pressure 173/71 H Pulse Oximetry 97 97 97 06/23/18 01:31 06/23/18 01:45 06/23/18 02:00 Temperature Pulse Rate 80 63 60 Respiratory Rate 20 12 14 Blood Pressure 161/65 H Pulse Oximetry 97 98 98 06/23/18 02:01 06/23/18 02:15 06/23/18 02:30 Temperature Pulse Rate 64 65 60 Respiratory Rate 16 22 14 Blood Pressure 143/62 H 146/65 H Pulse Oximetry 98 96 99 06/23/18 02:45 06/23/18 03:00 06/23/18 03:15 Temperature Pulse Rate 61 60 60 Respiratory Rate 19 12 12 Blood Pressure 160/68 H Pulse Oximetry 93 L 94 L 94 L 06/23/18 03:30 06/23/18 03:31 06/23/18 03:45 Temperature Pulse Rate 59 L 60 58 L Respiratory Rate 11 L 11 L 11 L Blood Pressure 159/70 H Pulse Oximetry 94 L 94 L 95 06/23/18 04:00 06/23/18 04:15 06/23/18 04:30 Temperature Pulse Rate 62 60 59 L Respiratory Rate 14 12 22 Blood Pressure 160/70 H 141/64 H Pulse Oximetry 95 93 L 96 06/23/18 04:45 06/23/18 05:00 06/23/18 05:01 Temperature Pulse Rate 62 61 61 Respiratory Rate 14 13 14 Blood Pressure 187/79 H Pulse Oximetry 96 96 95 06/23/18 05:15 06/23/18 05:19 06/23/18 05:30 Temperature Pulse Rate 61 64 69 Respiratory Rate 21 17 36 H Blood Pressure 137/70 Pulse Oximetry 98 98 93 L 06/23/18 05:45 06/23/18 06:00 06/23/18 06:01 Temperature Pulse Rate 70 62 61 Respiratory Rate 30 H 17 21 Blood Pressure 183/84 H Pulse Oximetry 93 L 98 98 06/23/18 06:15 06/23/18 06:30 06/23/18 06:44 Temperature Pulse Rate 62 61 60 Respiratory Rate 19 12 13 Blood Pressure 162/70 H Pulse Oximetry 95 96 98 06/23/18 06:45 06/23/18 07:00 06/23/18 07:15 Temperature Pulse Rate 60 60 59 L Respiratory Rate 16 13 19 Blood Pressure 139/66 Pulse Oximetry 97 97 96 06/23/18 07:30 06/23/18 07:45 06/23/18 08:00 Temperature Pulse Rate 59 L 59 L 61 Respiratory Rate 16 11 L 12 Blood Pressure Pulse Oximetry 96 98 98 06/23/18 08:01 06/23/18 08:15 06/23/18 08:30 Temperature Pulse Rate 60 60 60 Respiratory Rate 13 11 L 12 Blood Pressure 172/72 H Pulse Oximetry 98 98 97 06/23/18 08:45 06/23/18 09:00 06/23/18 09:01 Temperature Pulse Rate 60 60 60 Respiratory Rate 12 15 14 Blood Pressure 160/72 H Pulse Oximetry 98 98 98 06/23/18 09:13 06/23/18 09:15 06/23/18 09:30 Temperature Pulse Rate 75 63 69 Respiratory Rate 20 15 23 Blood Pressure Pulse Oximetry 98 99 98 06/23/18 09:45 06/23/18 10:00 06/23/18 10:01 Temperature Pulse Rate 65 68 67 Respiratory Rate 12 23 25 H Blood Pressure 131/60 Pulse Oximetry 96 94 L 93 L 06/23/18 10:15 06/23/18 13:39 Temperature Pulse Rate 90 80 Respiratory Rate 22 22 Blood Pressure Pulse Oximetry 97 Intake & Output 06/22/18 06/23/18 06/23/18 18:59 06:59 18:59 Intake Total 400 / 400 880 / 880 Output Total 1400 / 1400 1000 / 1000 Balance -1000 / -1000 -120 / -120 Weight 80.1 kg Intake: IV 400 / 400 400 / 400 Bumex Inj 25 mg In 100 ml @ 0.5 50 / 50 MG/HR 2 mls/hr IV.CONT .Q24H ANNE Rx#:[id number] Zyvox 600 mg Premix 300 ML @ 300 / 300 300 / 300 300 mls/hr IV.SIG Q12H ANNE Rx#: [id number] Zosyn 2.25 GM Premix 50 ML @ 50 / 50 100 / 100 100 mls/hr IV.SIG Q8H ANNE Rx#: [id number] Oral 480 / 480 Output: Urine 1400 / 1400 1000 / 1000 Other: # Voids 3 Date of Last Bowel Movement 06/22/18 06/22/18 06/22/18 # Incontinent Bowel Movements 1 Narrative: Chronically ill-appearing elderly female in NAD.Confused. SKIN: Cool and dry. Pale. HEENT: Pupils equal and round. Pale conjunctiva. Throat clear. NECK: Supple no tender LAD or JVD. HEART: RRR no m/r/g. LUNGS: Few BI basal crackles and occ Wheezes ABDOMEN: +BS, soft, nondistended. Obese and No organomegaly. EXTREMITIES: No edema. Diminished pedal pulses. NEURO: Awake confused. No focal deficits. - Urinary Catheter Management Indwelling Urethral Catheter Cath placed during this visit: yes, but has since been removed by the nurse Reason for continuing: Continue criteria not met Insertion date: 06/08/18 Insertion time: 16:15 Removal date: 06/15/18 Removal time: 12:00 Assessment and Plan - Assessment (1) GI bleed requiring more than 4 units of blood in 24 hours, ICU, or surgery Code(s): K92.2 - Gastrointestinal hemorrhage, unspecified Status: Acute (2) Anemia Code(s): D64.9 - Anemia, unspecified Status: Acute Qualifiers: Other causes of anemia: acute posthemorrhagic (3) Shock Code(s): R57.9 - Shock, unspecified Status: Acute (4) Sepsis Code(s): A41.9 - Sepsis, unspecified organism Status: Acute - Plan Patient had pneumonia, and back to ICU on Bipap Patient is in ARF on zyvox/zosyn Acute renal failure appears to be due to hypoperfusion of the kidney as a result of sepsis Creatinine 2.3. urine output 2.4 L --- Follow BMP and the urine out put.
[2018-06-23] MEDS: traZODone 50 MG Tablet PO SCH (21:03)
[2018-06-23] MEDS: predniSONE 10 MG Tablet PO SCH (21:04)
[2018-06-24 02:01] LABS: Magnesium 2.3 mg/dL (1.5-2.5); Phosphorus 3.5 mg/dL (2.5-4.9)
[2018-06-24] MEDS: Piperacil/Tazo 3.375 GM Premix 50 ML IV.SIG SCH ×4 (02:23→17:21)
[2018-06-24] MEDS: Gabapentin 100 MG Capsule PO SCH ×3 (03:58→17:21)
[2018-06-24] MEDS: Morphine Sulfate Inj 2 MG/ML Vial IV.PUSH PRN ×3 (04:07→21:19)
[2018-06-24 05:39] LABS: Hemoglobin 9.8 gm/dL (11.6-15.3); Mean Corpuscular HGB Conc 33.7 % (32.0-36.0); Mean Corpuscular Hemoglobin 29.7 pg (27.0-34.0); Mean Corpuscular Volume 88.1 fL (80.0-100.0); Mean Platelet Volume 9.5 fL (7.0-11.0); Platelet Count 212 th/mm3 (150-450); Red Blood Count 3.29 mil/mm3 (4.00-5.30); Red Cell Distribution Width 17.5 % (11.6-17.2)
[2018-06-24 06:15] LABS: Alanine Aminotransferase 15 U/L (10-53); Alkaline Phosphatase 66 U/L (45-117); Anion Gap 8 meq/L (5-15); Aspartate Aminotransferase 9 U/L (15-37); Blood Urea Nitrogen 89 mg/dL (7-18); Carbon Dioxide 37.5 meq/L (21.0-32.0); Chloride 97 meq/L (98-107); Glomerular Filtration Rate 23 mL/min (>89); Glucose,Random 221 mg/dL (74-106); Magnesium 2.3 mg/dL (1.5-2.5); Phosphorus 3.7 mg/dL (2.5-4.9); Potassium 3.7 meq/L (3.5-5.1); Sodium 142 meq/L (136-145); Total Protein 6.4 g/dL (6.4-8.2)
[2018-06-24] MEDS: guaiFENesin 600 MG ER Tablet PO SCH ×2 (08:52→20:08)
[2018-06-24] MEDS: Carvedilol 12.5 MG Tablet PO SCH ×2 (08:52→20:08)
[2018-06-24 08:53] LABS: Lymphocytes 7 % (9-44); Monocytes 4 % (0-8); Myelocytes 2 % (0-0); Platelet Estimate Normal (Normal); Platelet Morphology Normal (Normal)
[2018-06-24] MEDS: Insulin Detemir Inj 1,000 UNIT/10 ML Vial SQ SCH ×2 (08:53→20:09)
[2018-06-24] MEDS: predniSONE 10 MG Tablet PO SCH ×2 (08:53→20:08)
[2018-06-24] MEDS: Mupirocin 2% Nasal Oint Topical Syringe EACH NARE SCH ×2 (08:53→20:08)
[2018-06-24] MEDS: amLODIPine 5 MG Tablet PO SCH (08:53)
[2018-06-24] MEDS: Insulin NovoLOG Aspart Correctional Sugar Inj SQ SCH ×4 (08:53→20:09)
[2018-06-24] MEDS: Polyvinyl Alcohol/Povidone PF Opth Drops 0.4 ML Dropperette EACH EYE SCH ×2 (08:54→20:09)
[2018-06-24] MEDS: Budesonide-Formoterol 160/4.5 MCG 6 GM Inhaler INH SCH ×2 (08:54→20:09)
[2018-06-24] MEDS: Senna/Docusate Sodium 8.6/50 MG Tablet PO SCH ×2 (08:54→20:09)
[2018-06-24] MEDS: Lactic Acid (Ammonium Lactate) 12% Lotion 225 GM Bottle TOPICAL SCH (09:53)
--- NOTE | 2018-06-24 12:37 | P.PNCC ---
Subjective Subjective Remarks/Hospital Course: 68-year-old female, with past medical history significant for COPD, PE, on blood thinners, presented initially with complaint of GI bleed. Per EMS report they were called to the senior living for respiratory distress. On their arrival they state that she was not in respiratory distress but she was hypotensive with a systolic blood pressure in the 60s and delayed cap refill. Blood sugar was within normal limits. They noted dark bloody stools. They were able to secure an IV and route did give her about 350 cc of fluids prior to arrival. Her last blood pressure prior to arrival was in the 110s systolic. Patient was able to say that her abdomen hurts but was not answering too many more questions, she denied chest pain, shortness of breath. The CT of the abdomen showed only large amount of stool in the bowel and the patient passed a large volume of stool after manual disimpaction. Shortly after this she has lost consciousness, became unresponsive with GCS of 3 requiring emergent intubation for an airway protection by ED attending. 05/20: Patient still became more hypotensive. Receiving 2 units PRBCs and K Centra 4500 units x1 now. Minimal response on the ventilator. Did withdraw to vigorous stimuli/sternal rub. Afebrile. 05/21: Currently resting in bed in no acute distress. Plan for extubation today. Hemoglobins remained stable. 05/22: Afebrile. Currently on 8 L nasal cannula. Will provide 1 dose of bumetanide and attempt to diurese. Discontinue IV fluids. CT brain overnight revealed no acute intracranial findings. 05/29 Critical care medicine reconsulted for hemorrhagic shock. Patient underwent EGD/colonoscopy on 05/27 that demonstrated severe erythematous gastritis of gastric body and antrum, diverticulosis, large circumferential colitis in sigmoid colon. CTA 05/27 demonstrates atherosclerosis in the SMA without high-grade stenosis. She does have a history of pulmonary embolism that was treated with Xarelto. Her Xarelto had been on hold due to GI bleeding but was resumed today. This afternoon she began having large dark bowel movements with clots. She has crampy abdominal pain. She is nauseated but not vomiting. Hemoglobin dropped from 10.7 this morning to 7.[address] Castro has been consulted for evaluation of ischemic colitis. Upon his evaluation he found her hypotensive with a MAP of 50 and thus has requested critical care medicine consult due to hemorrhagic shock. I am placing art line and central line. She was started on Levophed 06/18: 68 years old female who has multiple medical problems as above, admitted since 05/19/18. [facility] reconsulted for acute respiratory distress and impending respiratory failure with hypoxia. Evaluated by Dr. Garner on the floor stat ABG showed ph 7.27, pC02 55, PO2 73 02 sat 91 on 5 L nasal cannula. Patient was in severe respiratory distress, IV Lasix 40 mg given and patient was transferred to ICU. I evaluated patient immediately. Patient is tachypneic lethargic but wakes up easily. Chest x-ray shows bibasilar right more than left infiltrates indicating probable pneumonia. I will initiated patient on BiPAP 12/5 titrate FiO2 to keep saturation more than 90%. I will also hold prednisone start IV Solu-Medrol 60 mg every 8 hours continue breathing treatments and Symbicort. Broad-spectrum antibiotics with Zosyn and Zyvox until cultures are back check sputum urine and blood culture 06/19: Currently on 3 L nasal cannula. X-ray appears to be pulmonary edema with small pleural effusion. Will give 1 additional dose of furosemide 40 mg IV x1 now. Creatinine slowly normalizing. 06/20: Intermittently on and off BiPAP. Currently on bumetanide drip at 0.5 mg an hour. Diuresing nicely 1800 cc past 24 hours. Intermittently confused. Tolerating diet. Blood sugars are elevated. 06/21: Remains on nasal cannula. Remains on bumetanide drip at 0.5 mg an hour. Diuresed approximately 2100 cc past 24 hours. Complaining of generalized pain. Blood sugars remain elevated. 06/22: Afebrile. Bumetanide drip discontinued along with albumin. Diuresed approximately 2800 cc. Hold meds are currently being restarted. 06/23: Afebrile. Remains on nasal cannula. Receiving as needed narcotics and benzodiazepines. Subjective 06/24: Afebrile. Remains on nasal cannula. Appears. Creatinine slowly normalizing currently 2.1. No real changes over the past 24 hours. Objective Vital Signs / I&O: Vital Signs 06/23/18 12:45 06/23/18 13:00 06/23/18 13:01 Pulse Rate 61 62 61 Respiratory Rate 12 17 17 Blood Pressure 127/60 Pulse Oximetry 99 98 98 06/23/18 13:15 06/23/18 13:30 06/23/18 13:39 Pulse Rate 61 69 80 Respiratory Rate 13 20 22 Blood Pressure Pulse Oximetry 98 97 06/23/18 13:45 06/23/18 14:00 06/23/18 14:15 Pulse Rate 64 66 69 Respiratory Rate 11 L 12 19 Blood Pressure 114/57 L Pulse Oximetry 100 97 95 06/23/18 14:30 06/23/18 14:45 06/23/18 15:00 Pulse Rate 66 66 64 Respiratory Rate 15 10 L 11 L Blood Pressure 119/59 L Pulse Oximetry 96 96 96 06/23/18 15:15 06/23/18 15:30 06/23/18 15:45 Pulse Rate 64 65 63 Respiratory Rate 11 L 16 13 Blood Pressure Pulse Oximetry 96 96 97 06/23/18 16:00 06/23/18 16:15 06/23/18 16:30 Pulse Rate 62 63 63 Respiratory Rate 13 13 12 Blood Pressure 113/53 L Pulse Oximetry 97 97 97 06/23/18 19:30 06/23/18 19:45 06/23/18 20:00 Pulse Rate 67 69 66 Respiratory Rate 12 16 12 Blood Pressure 131/61 Pulse Oximetry 99 98 99 06/23/18 20:15 06/23/18 20:30 06/23/18 20:35 Pulse Rate 68 66 Respiratory Rate 13 12 20 Blood Pressure Pulse Oximetry 99 100 06/23/18 20:45 06/23/18 21:00 06/23/18 21:01 Pulse Rate 63 64 68 Respiratory Rate 12 12 21 Blood Pressure 127/60 Pulse Oximetry 100 100 100 06/23/18 21:15 06/23/18 21:30 06/23/18 21:45 Pulse Rate 65 64 66 Respiratory Rate 11 L 11 L 13 Blood Pressure Pulse Oximetry 100 100 100 06/23/18 22:00 06/23/18 22:15 06/23/18 22:30 Pulse Rate 63 62 62 Respiratory Rate 14 13 11 L Blood Pressure 128/57 L Pulse Oximetry 98 99 98 06/23/18 22:45 10/23/18 23:00 06/23/18 23:15 Pulse Rate 63 64 65 Respiratory Rate 12 14 14 Blood Pressure 147/64 H Pulse Oximetry 98 98 98 06/23/18 23:30 06/23/18 23:45 06/24/18 00:00 Pulse Rate 61 63 71 Respiratory Rate 12 11 L 14 Blood Pressure 150/65 H Pulse Oximetry 98 98 98 06/24/18 00:15 06/24/18 00:30 06/24/18 00:45 Pulse Rate 60 59 L 60 Respiratory Rate 12 11 L 11 L Blood Pressure Pulse Oximetry 98 98 98 06/24/18 01:00 06/24/18 01:01 06/24/18 01:15 Pulse Rate 61 60 59 L Respiratory Rate 11 L 11 L 11 L Blood Pressure 144/69 H Pulse Oximetry 99 99 99 06/24/18 01:30 06/24/18 01:45 06/24/18 02:00 Pulse Rate 70 61 64 Respiratory Rate 13 10 L 10 L Blood Pressure Pulse Oximetry 98 98 97 06/24/18 02:01 06/24/18 02:15 06/24/18 02:30 Pulse Rate 63 65 64 Respiratory Rate 11 L 12 12 Blood Pressure 166/69 H Pulse Oximetry 97 97 98 06/24/18 02:45 06/24/18 03:00 06/24/18 03:01 Pulse Rate 62 65 65 Respiratory Rate 10 L 19 30 H Blood Pressure 167/70 H Pulse Oximetry 98 98 97 06/24/18 03:15 06/24/18 03:30 06/24/18 03:45 Pulse Rate 64 62 62 Respiratory Rate 13 14 12 Blood Pressure Pulse Oximetry 99 98 98 06/24/18 04:00 06/24/18 04:01 06/24/18 04:15 Pulse Rate 66 65 63 Respiratory Rate 20 20 11 L Blood Pressure 154/73 H Pulse Oximetry 99 97 99 06/24/18 04:30 06/24/18 04:45 06/24/18 05:00 Pulse Rate 73 67 66 Respiratory Rate 22 13 10 L Blood Pressure 160/74 H Pulse Oximetry 97 99 96 06/24/18 05:15 06/24/18 05:30 06/24/18 05:45 Pulse Rate 65 64 78 Respiratory Rate 21 14 11 L Blood Pressure Pulse Oximetry 95 95 95 06/24/18 06:00 06/24/18 06:15 06/24/18 06:30 Pulse Rate 77 65 70 Respiratory Rate 20 15 11 L Blood Pressure 152/93 H Pulse Oximetry 96 95 95 06/24/18 06:45 06/24/18 07:00 06/24/18 07:15 Pulse Rate 64 64 69 Respiratory Rate 13 19 21 Blood Pressure 175/72 H 175/72 H Pulse Oximetry 98 97 97 06/24/18 07:30 06/24/18 07:45 06/24/18 08:00 Pulse Rate 67 65 64 Respiratory Rate 24 12 11 L Blood Pressure 141/60 H 141/60 H Pulse Oximetry 95 93 L 89 L 06/24/18 08:15 06/24/18 08:30 06/24/18 08:45 Pulse Rate 66 66 72 Respiratory Rate 21 16 22 Blood Pressure Pulse Oximetry 91 L 93 L 96 06/24/18 09:00 06/24/18 09:01 06/24/18 09:15 Pulse Rate 74 72 74 Respiratory Rate 14 13 31 H Blood Pressure 186/79 H 186/79 H Pulse Oximetry 97 98 88 L 06/24/18 09:27 06/24/18 09:30 06/24/18 09:45 Pulse Rate 68 70 68 Respiratory Rate 15 16 14 Blood Pressure Pulse Oximetry 100 88 L 100 06/24/18 10:00 06/24/18 10:01 06/24/18 11:50 Pulse Rate 73 72 70 Respiratory Rate 14 12 16 Blood Pressure 147/65 H 147/65 H Pulse Oximetry 99 99 Intake & Output 06/23/18 06/24/18 06/24/18 18:59 06:59 18:59 Intake Total 400 / 400 290 / 290 350 / 350 Output Total 1300 / 1300 700 / 700 Balance -900 / -900 -410 / -410 350 / 350 Weight 80.4 kg Intake: IV 400 / 400 50 / 50 350 / 350 Zyvox 600 mg Premix 300 ML @ 300 / 300 300 / 300 300 mls/hr IV.SIG Q12H ANNE Rx#: [id number] Zosyn 3.375 GM Premix 50 ML @ 100 / 100 50 / 50 50 / 50 100 mls/hr IV.SIG Q6H ANNE Rx#: [id number] Oral 240 / 240 Output: Urine 1300 / 1300 700 / 700 Other: Date of Last Bowel Movement 06/22/18 06/23/18 06/23/18 # Bowel Movements 1 Result Diagrams: 06/24/18 04:53 06/24/18 04:53 Other Results: Microbiology 06/18/18 14:00 Blood - Peripheral Aerobic Blood Culture - Final No growth in 5 days 06/18/18 14:00 Blood - Peripheral Anaerobic Blood Culture - Final No growth in 5 days 06/18/18 13:54 Blood - Peripheral Aerobic Blood Culture - Final No growth in 5 days 06/18/18 13:54 Blood - Peripheral Anaerobic Blood Culture - Final No growth in 5 days 06/08/18 17:45 Catheterized Urine Urine Culture - Final Lisbeth glabrata 06/05/18 19:50 Blood - Peripheral Aerobic Blood Culture - Final No growth in 5 days 06/05/18 19:50 Blood - Peripheral Anaerobic Blood Culture - Final No growth in 5 days 06/05/18 19:58 Blood - Peripheral Aerobic Blood Culture - Final No growth in 5 days 06/05/18 19:58 Blood - Peripheral Anaerobic Blood Culture - Final No growth in 5 days 06/06/18 06:15 Catheterized Urine Urine Culture - Final Lisbeth glabrata 05/29/18 04:40 Blood - Peripheral Aerobic Blood Culture - Final No growth in 5 days 05/29/18 04:40 Blood - Peripheral Anaerobic Blood Culture - Final No growth in 5 days 05/29/18 04:40 Blood - Peripheral Aerobic Blood Culture - Final No growth in 5 days 05/29/18 04:40 Blood - Peripheral Anaerobic Blood Culture - Final No growth in 5 days 05/28/18 18:40 Stool Stool Occult Blood (SARAHI) - Final Hemoccult positive 05/20/18 03:15 Blood - Peripheral Aerobic Blood Culture - Final No growth in 5 days 05/20/18 03:15 Blood - Peripheral Anaerobic Blood Culture - Final No growth in 5 days 05/20/18 03:10 Blood - Peripheral Aerobic Blood Culture - Final No growth in 5 days 05/20/18 03:10 Blood - Peripheral Anaerobic Blood Culture - Final No growth in 5 days 05/20/18 16:35 Sputum - Endotracheal Gram Stain - Final 05/20/18 16:35 Sputum - Endotracheal Sputum Culture - Final No growth in 48 hours 05/20/18 15:30 Nasal Wash Influenza Types A,B Antigen - Final Negative for FLU A and B antigen Infection due to influenza A or B cannot be ruled out since the antigen present in the sample may be below the detection limit of the test. Imaging: Abdomen X-Ray 05/20/18 02:10 CONCLUSION: Nonspecific, benign abdomen appearance. Abdomen/Pelvis CT 05/20/18 02:10 CONCLUSION: Rectal fecal impaction and likely mild proctitis Chest X-Ray 05/20/18 02:10 CONCLUSION: Negative examination. Chest X-Ray 05/20/18 05:29 CONCLUSION: Satisfactory endotracheal tube positioning. Slight bibasilar parenchymal opacities. Head CT 05/20/18 05:44 CONCLUSION: No acute intracranial findings . Chest X-Ray 05/20/18 08:57 CONCLUSION: 1. Left IJ central line in the mid SVC without pneumothorax. Head CT 05/21/18 19:41 CONCLUSION: 1. No acute findings. Stable exam since May 20. Chronic white matter ischemic changes. Retention cyst right maxillary sinus. . Chest X-Ray 05/23/18 06:00 CONCLUSION: Worsening bibasilar parenchymal consolidation. Interim extubation and nasogastric tube removal. Chest X-Ray 05/26/18 09:08 CONCLUSION: Improving bibasilar infiltrates and interstitial edema. Abdomen/Pelvis CTA 05/27/18 00:00 CONCLUSION: 1. There is severe atherosclerotic disease of the aorta. Atherosclerotic disease is present within the superior mesenteric artery but no high-grade stenosis or occlusion is visualized on the arterial side of the mesenteric vasculature. Please note that the venous mesenteric structures are not well evaluated on this examination timed for arterial enhancement. Additionally, there are no secondary findings to suggest mesenteric ischemia including no intramural air. 2. Wall thickening of the rectum suggesting a proctitis. 3. New small bilateral pleural effusions and new small volume of free fluid in the abdomen and pelvis. Also, anasarca is new. Chest X-Ray 05/28/18 23:38 CONCLUSION: 1. New right IJ line with tip at the atriocaval junction. No pneumothorax. 2. Mild atelectasis and tiny effusions at both lung bases not significantly changed. Chest X-Ray 05/29/18 00:00 CONCLUSION: No change mild atelectasis and small effusions at each lung base. Chest X-Ray 05/31/18 00:00 CONCLUSION: Stable chest x-ray with small bilateral pleural effusions with associated volume loss and/or airspace consolidation. Chest X-Ray 06/05/18 00:00 CONCLUSION: Mild parenchymal consolidation and small effusions at each lung base not significantly changed. Abdomen/Bladder Ultrasound 06/08/18 00:00 CONCLUSION: 1. Negative renal sonogram. No obstruction observed. Chest X-Ray 06/12/18 00:00 CONCLUSION: Unchanged bibasal infiltrates and small effusions. Venous Doppler Study 06/13/18 00:00 CONCLUSION: 1. The study is negative for bilateral lower extremity deep venous thrombosis. Chest X-Ray 06/17/18 00:00 CONCLUSION: Cardiomegaly with probable moderate congestive failure. There is some improvement from comparison. Chest X-Ray 06/18/18 11:48 CONCLUSION: 1. Persistent pulmonary edema pattern with probable small bilateral pleural effusions. Chest X-Ray 06/20/18 06:00 CONCLUSION: 1. Bibasilar airspace disease. 2. Cardiomegaly Chest X-Ray 06/21/18 06:00 CONCLUSION: Persistent bibasilar consolidation. Objective Remarks: GENERAL: 68-year-old female sitting up in [facility] bed in no acute distress SKIN: Warm and dry. No rash HEAD: Atraumatic. Normocephalic. EYES: Pupils equal and round. No scleral icterus. ENT: No nasal bleeding or discharge. NECK: Trachea midline. No JVD. CARDIOVASCULAR: Regular rate and rhythm. S1, S2 no S4. 1/6 systolic murmur left sternal border. RESPIRATORY: Diminished air entry at the bases with bibasilar crackles bilateral expiratory wheezes use. GASTROINTESTINAL: Abdomen mildly distended, mild diffuse tenderness MUSCULOSKELETAL: Trace to 1+ edema bilateral lower extremities.. Complaining of tenderness. Negative Doppler ultrasound 06/13 NEUROLOGICAL: Alert awake strength appears equal symmetric.. Moves all extremities spontaneously. No significant focal neurological deficits. Assessment and Plan - Assessment and Plan Plan: Neuro/Psych: Metabolic encephalopathy Depression/anxiety disorder NOS Peripheral neuropathy Chronic benzodiazepine use on alprazolam 0.5 mg twice daily at home Oxycodone/acetaminophen 10/325 1 to 2 tabs as needed for pain Continue renally dosed gabapentin currently 200 mg every [address] brain 05/20 and 05/21 revealed no acute intracranial findings Alprazolam 0.25 mg every 6 hours as needed anxiety. CV: Mild pulmonary edema Essential hypertension Hyperlipidemia Questionable atrial septal defect on echocardiogram 04/18 2D echocardiogram time revealed EF 65%. LVH. Essentially normal pulmonary arterial pressures. Continue hydralazine 100 mg 3 times daily, carvedilol 25 mg twice daily and amlodipine 5 mg daily and isosorbide dinitrate 20 mg 3 times daily Started on bumetanide drip at 0.5 mg/h per nephrology attempt to diurese. Discontinue 06/22 On atorvastatin 40 mg daily for dyslipidemia. Holding anticoagulation and antiplatelet therapy due to bleeding per GI recommendations Resp: Acute hypoxemic and hypercarbic respiratory failure Right lower lobe pneumonia COPD with acute exacerbation History of pulmonary embolism on chronic rivaroxaban Initiated on BiPAP 08/05. Currently she is on cannula 3 L Hold prednisone 20 mg twice daily continue methylprednisolone succinate wean to 20 mg every 12 hours and discontinued 06/23 Extubated 05/21 previously Albuterol/ipratropium aerosols every 6 hours with albuterol aerosols every 2 as needed for dyspnea Continue budesonide/formoterol 160/4.5 2 puffs twice daily GI/HEME: Ischemic colitis, colonoscopy 05/[address] Porter Severe erythematous gastritis, esophagitis on EGD 05/27 GI bleeding Fecal impaction, resolved Disimpacted in the ED. Hypoalbuminemia Elevated lipase of unclear significance Leukocytosis Normocytic anemia Continue pantoprazole 40 mg twice daily ADA diet 2000/mechanical soft with chopped meats CT abdomen pelvis 05/27no pneumatosis. There is SMA atherosclerosis without high-grade stenosis. EGD and colonoscopy 05/27 demonstrated severe erythematous gastritis, esophagitis , diverticulitis, sigmoid ischemic colitis. Developed acute GI bleeding with hemorrhagic shock on 05/28 after receiving dose of rivaroxaban. Held since Endo: Hyperglycemia Chronic prednisone use -prednisone 10 mg twice daily. Bedside glucose every AC/at bedtime with medium dose insulin sliding scale aspart insulin as indicated. On insulin detemir 8 units subcu twice daily continued FEN/Renal: Acute kidney injury History of anterior urethral stricture Baseline creatinine around 1.1. Today 2.4. Is stable. Noted increasing BUN CT abdomen/pelvis revealed no hydronephrosis. Negative urine eosinophils. Avoid nephrotoxic medication. ID: Healthcare associated pneumonia Sepsis Lisbeth glabrata UTI Start piperacillin/tazobactam and linezolid #4, follow-up blood urine and sputum culture Urine culture 06/08/2018 had been positive for Lisbeth glabrata and patient had been on Diflucan (Even though C Glabrata) Repeat urine culture if positive for Lisbeth glabrata change to micafungin Access -PIV. Central line if indicated Prophylaxis -GI -pantoprazole 40 BID -DVT-SCD/holding pharmacological prophylaxis in light of GI bleed Level 2 follow-up.. Stable from critical care standpoint. Assign care to hospitalist in a.m. 06/25
--- NOTE | 2018-06-24 13:00 | P.PN ---
Subjective Interval history: She is stable on O2 2L. No SOB at rest. Renal profile is better. Physical Exam Vital signs: Vital Signs 06/23/18 13:00 06/23/18 13:01 06/23/18 13:15 Pulse Rate 62 61 61 Respiratory Rate 17 17 13 Blood Pressure 127/60 Pulse Oximetry 98 98 98 06/23/18 13:30 06/23/18 13:39 06/23/18 13:45 Pulse Rate 69 80 64 Respiratory Rate 20 22 11 L Blood Pressure Pulse Oximetry 97 100 06/23/18 14:00 06/23/18 14:15 06/23/18 14:30 Pulse Rate 66 69 66 Respiratory Rate 12 19 15 Blood Pressure 114/57 L Pulse Oximetry 97 95 96 06/23/18 14:45 06/23/18 15:00 06/23/18 15:15 Pulse Rate 66 64 64 Respiratory Rate 10 L 11 L 11 L Blood Pressure 119/59 L Pulse Oximetry 96 96 96 06/23/18 15:30 06/23/18 15:45 06/23/18 16:00 Pulse Rate 65 63 62 Respiratory Rate 16 13 13 Blood Pressure 113/53 L Pulse Oximetry 96 97 97 06/23/18 16:15 06/23/18 16:30 06/23/18 19:30 Pulse Rate 63 63 67 Respiratory Rate 13 12 12 Blood Pressure Pulse Oximetry 97 97 99 06/23/18 19:45 06/23/18 20:00 06/23/18 20:15 Pulse Rate 69 66 68 Respiratory Rate 16 12 13 Blood Pressure 131/61 Pulse Oximetry 98 99 99 06/23/18 20:30 06/23/18 20:35 06/23/18 20:45 Pulse Rate 66 63 Respiratory Rate 12 20 12 Blood Pressure Pulse Oximetry 100 100 06/23/18 21:00 06/23/18 21:01 06/23/18 21:15 Pulse Rate 64 68 65 Respiratory Rate 12 21 11 L Blood Pressure 127/60 Pulse Oximetry 100 100 100 06/23/18 21:30 06/23/18 21:45 06/23/18 22:00 Pulse Rate 64 66 63 Respiratory Rate 11 L 13 14 Blood Pressure 128/57 L Pulse Oximetry 100 100 98 06/23/18 22:15 06/23/18 22:30 06/23/18 22:45 Pulse Rate 62 62 63 Respiratory Rate 13 11 L 12 Blood Pressure Pulse Oximetry 99 98 98 06/23/18 23:00 06/23/18 23:15 06/23/18 23:30 Pulse Rate 64 65 61 Respiratory Rate 14 14 12 Blood Pressure 147/64 H Pulse Oximetry 98 98 98 06/23/18 23:45 06/24/18 00:00 06/24/18 00:15 Pulse Rate 63 71 60 Respiratory Rate 11 L 14 12 Blood Pressure 150/65 H Pulse Oximetry 98 98 98 06/24/18 00:30 06/24/18 00:45 06/24/18 01:00 Pulse Rate 59 L 60 61 Respiratory Rate 11 L 11 L 11 L Blood Pressure Pulse Oximetry 98 98 99 06/24/18 01:01 06/24/18 01:15 06/24/18 01:30 Pulse Rate 60 59 L 70 Respiratory Rate 11 L 11 L 13 Blood Pressure 144/69 H Pulse Oximetry 99 99 98 06/24/18 01:45 06/24/18 02:00 06/24/18 02:01 Pulse Rate 61 64 63 Respiratory Rate 10 L 10 L 11 L Blood Pressure 166/69 H Pulse Oximetry 98 97 97 06/24/18 02:15 06/24/18 02:30 06/24/18 02:45 Pulse Rate 65 64 62 Respiratory Rate 12 12 10 L Blood Pressure Pulse Oximetry 97 98 98 06/24/18 03:00 06/24/18 03:01 06/24/18 03:15 Pulse Rate 65 65 64 Respiratory Rate 19 30 H 13 Blood Pressure 167/70 H Pulse Oximetry 98 97 99 06/24/18 03:30 06/24/18 03:45 06/24/18 04:00 Pulse Rate 62 62 66 Respiratory Rate 14 12 20 Blood Pressure Pulse Oximetry 98 98 99 06/24/18 04:01 06/24/18 04:15 06/24/18 04:30 Pulse Rate 65 63 73 Respiratory Rate 20 11 L 22 Blood Pressure 154/73 H Pulse Oximetry 97 99 97 06/24/18 04:45 06/24/18 05:00 06/24/18 05:15 Pulse Rate 67 66 65 Respiratory Rate 13 10 L 21 Blood Pressure 160/74 H Pulse Oximetry 99 96 95 06/24/18 05:30 06/24/18 05:45 06/24/18 06:00 Pulse Rate 64 78 77 Respiratory Rate 14 11 L 20 Blood Pressure 152/93 H Pulse Oximetry 95 95 96 06/24/18 06:15 06/24/18 06:30 06/24/18 06:45 Pulse Rate 65 70 64 Respiratory Rate 15 11 L 13 Blood Pressure 175/72 H Pulse Oximetry 95 95 98 06/24/18 07:00 06/24/18 07:15 06/24/18 07:30 Pulse Rate 64 69 67 Respiratory Rate 19 21 24 Blood Pressure 175/72 H Pulse Oximetry 97 97 95 06/24/18 07:45 06/24/18 08:00 06/24/18 08:15 Pulse Rate 65 64 66 Respiratory Rate 12 11 L 21 Blood Pressure 141/60 H 141/60 H Pulse Oximetry 93 L 89 L 91 L 06/24/18 08:30 06/24/18 08:45 06/24/18 09:00 Pulse Rate 66 72 74 Respiratory Rate 16 22 14 Blood Pressure 186/79 H Pulse Oximetry 93 L 96 97 06/24/18 09:01 06/24/18 09:15 06/24/18 09:27 Pulse Rate 72 74 68 Respiratory Rate 13 31 H 15 Blood Pressure 186/79 H Pulse Oximetry 98 88 L 100 06/24/18 09:30 06/24/18 09:45 06/24/18 10:00 Pulse Rate 70 68 73 Respiratory Rate 16 14 14 Blood Pressure 147/65 H Pulse Oximetry 88 L 100 99 06/24/18 10:01 06/24/18 11:50 Pulse Rate 72 70 Respiratory Rate 12 16 Blood Pressure 147/65 H Pulse Oximetry 99 Intake & Output 06/23/18 06/24/18 06/24/18 18:59 06:59 18:59 Intake Total 400 / 400 290 / 290 350 / 350 Output Total 1300 / 1300 700 / 700 Balance -900 / -900 -410 / -410 350 / 350 Weight 80.4 kg Intake: IV 400 / 400 50 / 50 350 / 350 Zyvox 600 mg Premix 300 ML @ 300 / 300 300 / 300 300 mls/hr IV.SIG Q12H ANNE Rx#: [id number] Zosyn 3.375 GM Premix 50 ML @ 100 / 100 50 / 50 50 / 50 100 mls/hr IV.SIG Q6H ANNE Rx#: [id number] Oral 240 / 240 Output: Urine 1300 / 1300 700 / 700 Other: Date of Last Bowel Movement 06/22/18 06/23/18 06/23/18 # Bowel Movements 1 Narrative: Chronically ill-appearing elderly female in NAD. SKIN: Cool and Pale. HEENT: Pupils equal and round. Pale conjunctiva. Throat clear. NECK: Supple no tender LAD or JVD. HEART: RRR no m/r/g. LUNGS: Few BI basal crackles and no Wheezes ABDOMEN: +BS, soft, nondistended. Obese and No organomegaly. EXTREMITIES: No edema. Diminished pedal pulses. NEURO: Awake confused. No focal deficits. - Urinary Catheter Management Indwelling Urethral Catheter Cath placed during this visit: yes, but has since been removed by the nurse Reason for continuing: Continue criteria not met Insertion date: 06/08/18 Insertion time: 16:15 Removal date: 06/15/18 Removal time: 12:00 Results - Labs CBC & Chem 7: 06/24/18 04:53 06/24/18 04:53 Laboratory Results - last 24 hr 06/23/18 06/23/18 06/24/18 17:52 19:44 00:20 WBC RBC Hgb Hct MCV MCH MCHC RDW Plt Count MPV Prelim Diff (Auto) WBC Differential Seg Neuts % (Manual) Band Neuts % (Manual) Lymphocytes % (Manual) Monocytes % (Manual) Myelocytes % (Man) Abs Neuts (Manual) Differential Comment Platelet Estimate Platelet Morphology Sodium Potassium Chloride Carbon Dioxide Anion Gap BUN Creatinine Estimated GFR POC Glucose 319 H 273 H Random Glucose Calcium Phosphorus 3.5 Magnesium 2.3 Total Bilirubin AST ALT Alkaline Phosphatase Total Protein Albumin 06/24/18 06/24/18 06/24/18 04:53 04:53 08:33 WBC 11.0 RBC 3.29 L Hgb 9.8 L Hct 29.0 L MCV 88.1 MCH 29.7 MCHC 33.7 RDW 17.5 H Plt Count 212 MPV 9.5 Prelim Diff (Auto) Manual diff required WBC Differential Manual diff final Seg Neuts % (Manual) 84 H Band Neuts % (Manual) 3 Lymphocytes % (Manual) 7 L Monocytes % (Manual) 4 Myelocytes % (Man) 2 H Abs Neuts (Manual) 9.8 H Differential Comment . Platelet Estimate Normal Platelet Morphology Normal Sodium 142 Potassium 3.7 D Chloride 97 L Carbon Dioxide 37.5 H Anion Gap 8 BUN 89 H Creatinine 2.10 H Estimated GFR 23 L POC Glucose 248 H Random Glucose 221 H Calcium 9.0 Phosphorus 3.7 Magnesium 2.3 Total Bilirubin 0.8 AST 9 L ALT 15 Alkaline Phosphatase 66 Total Protein 6.4 D Albumin 4.0 Microbiology 06/18/18 14:00 Blood - Peripheral Aerobic Blood Culture - Final No growth in 5 days 06/18/18 14:00 Blood - Peripheral Anaerobic Blood Culture - Final No growth in 5 days 06/18/18 13:54 Blood - Peripheral Aerobic Blood Culture - Final No growth in 5 days 06/18/18 13:54 Blood - Peripheral Anaerobic Blood Culture - Final No growth in 5 days - Procedures central line placement. Assessment and Plan - Assessment (1) GI bleed requiring more than 4 units of blood in 24 hours, ICU, or surgery Code(s): K92.2 - Gastrointestinal hemorrhage, unspecified Status: Acute (2) Anemia Code(s): D64.9 - Anemia, unspecified Status: Acute (3) Shock Code(s): R57.9 - Shock, unspecified Status: Acute (4) Major depression, recurrent Code(s): F33.9 - Major depressive disorder, recurrent, unspecified Status: Acute (5) Sepsis Code(s): A41.9 - Sepsis, unspecified organism Status: Acute (6) Atelectasis Code(s): J98.11 - Atelectasis Status: Acute (7) Respiratory failure Code(s): J96.90 - Respiratory failure, unspecified, unspecified whether with hypoxia or hypercapnia Status: Acute (8) Aspiration pneumonia Code(s): J69.0 - Pneumonitis due to inhalation of food and vomit Status: Acute (9) Mixed personality disorder Code(s): F60.89 - Other specific personality disorders Status: Suspected - Plan 1. O2 2 L N/C 2. IS at bedside q3h 3. Duonebs qid and Q4H PRN 4. PT evaluation 5. Will cont Antibiotics . 6. Chest Xray in am 7. Symbicort 160/4.5 mcg , 2puffs BID 8. Cont prednisone 10 mg BID (2) Anemia Qualifiers: Other causes of anemia: acute posthemorrhagic (7) Respiratory failure Qualifiers: Chronicity: acute on chronic
--- NOTE | 2018-06-24 13:38 | P.PNNP ---
Subjective Interval history: Patient feels tired Physical Exam Vital signs: Vital Signs 06/23/18 13:39 06/23/18 13:45 06/23/18 14:00 Pulse Rate 80 64 66 Respiratory Rate 22 11 L 12 Blood Pressure 114/57 L Pulse Oximetry 100 97 06/23/18 14:15 06/23/18 14:30 06/23/18 14:45 Pulse Rate 69 66 66 Respiratory Rate 19 15 10 L Blood Pressure Pulse Oximetry 95 96 96 06/23/18 15:00 06/23/18 15:15 06/23/18 15:30 Pulse Rate 64 64 65 Respiratory Rate 11 L 11 L 16 Blood Pressure 119/59 L Pulse Oximetry 96 96 96 06/23/18 15:45 06/23/18 16:00 06/23/18 16:15 Pulse Rate 63 62 63 Respiratory Rate 13 13 13 Blood Pressure 113/53 L Pulse Oximetry 97 97 97 06/23/18 16:30 06/23/18 19:30 06/23/18 19:45 Pulse Rate 63 67 69 Respiratory Rate 12 12 16 Blood Pressure Pulse Oximetry 97 99 98 06/23/18 20:00 06/23/18 20:15 06/23/18 20:30 Pulse Rate 66 68 66 Respiratory Rate 12 13 12 Blood Pressure 131/61 Pulse Oximetry 99 99 100 06/23/18 20:35 06/23/18 20:45 06/23/18 21:00 Pulse Rate 63 64 Respiratory Rate 20 12 12 Blood Pressure Pulse Oximetry 100 100 06/23/18 21:01 06/23/18 21:15 06/23/18 21:30 Pulse Rate 68 65 64 Respiratory Rate 21 11 L 11 L Blood Pressure 127/60 Pulse Oximetry 100 100 100 06/23/18 21:45 06/23/18 22:00 06/23/18 22:15 Pulse Rate 66 63 62 Respiratory Rate 13 14 13 Blood Pressure 128/57 L Pulse Oximetry 100 98 99 06/23/18 22:30 06/23/18 22:45 06/23/18 23:00 Pulse Rate 62 63 64 Respiratory Rate 11 L 12 14 Blood Pressure 147/64 H Pulse Oximetry 98 98 98 06/23/18 23:15 06/23/18 23:30 06/23/18 23:45 Pulse Rate 65 61 63 Respiratory Rate 14 12 11 L Blood Pressure Pulse Oximetry 98 98 98 10/24/18 00:00 06/24/18 00:15 06/24/18 00:30 Pulse Rate 71 60 59 L Respiratory Rate 14 12 11 L Blood Pressure 150/65 H Pulse Oximetry 98 98 98 06/24/18 00:45 06/24/18 01:00 06/24/18 01:01 Pulse Rate 60 61 60 Respiratory Rate 11 L 11 L 11 L Blood Pressure 144/69 H Pulse Oximetry 98 99 99 06/24/18 01:15 06/24/18 01:30 06/24/18 01:45 Pulse Rate 59 L 70 61 Respiratory Rate 11 L 13 10 L Blood Pressure Pulse Oximetry 99 98 98 06/24/18 02:00 06/24/18 02:01 06/24/18 02:15 Pulse Rate 64 63 65 Respiratory Rate 10 L 11 L 12 Blood Pressure 166/69 H Pulse Oximetry 97 97 97 06/24/18 02:30 06/24/18 02:45 06/24/18 03:00 Pulse Rate 64 62 65 Respiratory Rate 12 10 L 19 Blood Pressure Pulse Oximetry 98 98 98 06/24/18 03:01 06/24/18 03:15 06/24/18 03:30 Pulse Rate 65 64 62 Respiratory Rate 30 H 13 14 Blood Pressure 167/70 H Pulse Oximetry 97 99 98 06/24/18 03:45 06/24/18 04:00 06/24/18 04:01 Pulse Rate 62 66 65 Respiratory Rate 12 20 20 Blood Pressure 154/73 H Pulse Oximetry 98 99 97 06/24/18 04:15 06/24/18 04:30 06/24/18 04:45 Pulse Rate 63 73 67 Respiratory Rate 11 L 22 13 Blood Pressure Pulse Oximetry 99 97 99 06/24/18 05:00 06/24/18 05:15 06/24/18 05:30 Pulse Rate 66 65 64 Respiratory Rate 10 L 21 14 Blood Pressure 160/74 H Pulse Oximetry 96 95 95 06/24/18 05:45 06/24/18 06:00 06/24/18 06:15 Pulse Rate 78 77 65 Respiratory Rate 11 L 20 15 Blood Pressure 152/93 H Pulse Oximetry 95 96 95 06/24/18 06:30 06/24/18 06:45 06/24/18 07:00 Pulse Rate 70 64 64 Respiratory Rate 11 L 13 19 Blood Pressure 175/72 H 175/72 H Pulse Oximetry 95 98 97 06/24/18 07:15 06/24/18 07:30 06/24/18 07:45 Pulse Rate 69 67 65 Respiratory Rate 21 24 12 Blood Pressure 141/60 H Pulse Oximetry 97 95 93 L 06/24/18 08:00 06/24/18 08:15 06/24/18 08:30 Pulse Rate 64 66 66 Respiratory Rate 11 L 21 16 Blood Pressure 141/60 H Pulse Oximetry 89 L 91 L 93 L 06/24/18 08:45 06/24/18 09:00 06/24/18 09:01 Pulse Rate 72 74 72 Respiratory Rate 22 14 13 Blood Pressure 186/79 H 186/79 H Pulse Oximetry 96 97 98 06/24/18 09:15 06/24/18 09:27 06/24/18 09:30 Pulse Rate 74 68 70 Respiratory Rate 31 H 15 16 Blood Pressure Pulse Oximetry 88 L 100 88 L 06/24/18 09:45 06/24/18 10:00 06/24/18 10:01 Pulse Rate 68 73 72 Respiratory Rate 14 14 12 Blood Pressure 147/65 H 147/65 H Pulse Oximetry 100 99 99 06/24/18 11:50 Pulse Rate 70 Respiratory Rate 16 Blood Pressure Pulse Oximetry Intake & Output 06/23/18 06/24/18 06/24/18 18:59 06:59 18:59 Intake Total 400 / 400 290 / 290 350 / 350 Output Total 1300 / 1300 700 / 700 Balance -900 / -900 -410 / -410 350 / 350 Weight 80.4 kg Intake: IV 400 / 400 50 / 50 350 / 350 Zyvox 600 mg Premix 300 ML @ 300 / 300 300 / 300 300 mls/hr IV.SIG Q12H ANNE Rx#: [id number] Zosyn 3.375 GM Premix 50 ML @ 100 / 100 50 / 50 50 / 50 100 mls/hr IV.SIG Q6H ANNE Rx#: [id number] Oral 240 / 240 Output: Urine 1300 / 1300 700 / 700 Other: Date of Last Bowel Movement 06/22/18 06/23/18 06/23/18 # Bowel Movements 1 Narrative: Chronically ill-appearing elderly female in NAD. SKIN: Cool and Pale. HEENT: Pupils equal and round. Pale conjunctiva. Throat clear. NECK: Supple no tender LAD or JVD. HEART: RRR no m/r/g. LUNGS: Few BI basal crackles and no Wheezes ABDOMEN: +BS, soft, nondistended. Obese and No organomegaly. EXTREMITIES: No edema. Diminished pedal pulses. NEURO: Awake confused. No focal deficits. - Urinary Catheter Management Indwelling Urethral Catheter Cath placed during this visit: yes, but has since been removed by the nurse Reason for continuing: Continue criteria not met Insertion date: 06/08/18 Insertion time: 16:15 Removal date: 06/15/18 Removal time: 12:00 Assessment and Plan - Assessment (1) GI bleed requiring more than 4 units of blood in 24 hours, ICU, or surgery Code(s): K92.2 - Gastrointestinal hemorrhage, unspecified Status: Acute (2) Anemia Code(s): D64.9 - Anemia, unspecified Status: Acute Qualifiers: Other causes of anemia: acute posthemorrhagic (3) Shock Code(s): R57.9 - Shock, unspecified Status: Acute (4) Sepsis Code(s): A41.9 - Sepsis, unspecified organism Status: Acute - Plan Patient had pneumonia, and back to ICU on Bipap Patient is in ARF on zyvox/zosyn Acute renal failure appears to be due to hypoperfusion of the kidney as a result of sepsis Creatinine 2.1. urine output 2 L --- Follow BMP and the urine out put.
[2018-06-24] MEDS: traZODone 50 MG Tablet PO SCH (20:08)
[2018-06-25] MEDS: Piperacil/Tazo 3.375 GM Premix 50 ML IV.SIG SCH ×3 (00:07→13:52)
[2018-06-25 00:12] LABS: Baso # (Auto) 0.1 th/mm3 (0.0-0.2); Baso % (Auto) 0.5 % (0.0-2.0); Hematocrit 26.4 % (35.0-46.0); Hemoglobin 8.5 gm/dL (11.6-15.3); Lymph # (Auto) 0.7 th/mm3 (1.0-4.8); Lymph % (Auto) 4.8 % (9.0-44.0); Mean Corpuscular HGB Conc 32.3 % (32.0-36.0); Mean Corpuscular Hemoglobin 28.8 pg (27.0-34.0); Mean Corpuscular Volume 89.3 fL (80.0-100.0); Mean Platelet Volume 9.3 fL (7.0-11.0); Mono % (Auto) 6.9 % (0.0-8.0); Neut # (Auto) 13.2 th/mm3 (1.8-7.7); Neut % (Auto) 87.8 % (16.0-70.0); Platelet Count 188 th/mm3 (150-450); Red Blood Count 2.96 mil/mm3 (4.00-5.30); Red Cell Distribution Width 17.2 % (11.6-17.2)
[2018-06-25 00:43] LABS: Alanine Aminotransferase 15 U/L (10-53); Albumin 3.4 g/dL (3.4-5.0); Alkaline Phosphatase 56 U/L (45-117); Anion Gap 8 meq/L (5-15); Aspartate Aminotransferase 6 U/L (15-37); Blood Urea Nitrogen 94 mg/dL (7-18); Calcium 8.5 mg/dL (8.5-10.1); Carbon Dioxide 37.5 meq/L (21.0-32.0); Chloride 100 meq/L (98-107); Glomerular Filtration Rate 26 mL/min (>89); Glucose,Random 180 mg/dL (74-106); Magnesium 2.2 mg/dL (1.5-2.5); Phosphorus 3.6 mg/dL (2.5-4.9); Potassium 3.5 meq/L (3.5-5.1); Sodium 145 meq/L (136-145); Total Protein 5.5 g/dL (6.4-8.2)
[2018-06-25 00:46] LABS: Lymphocytes 9 % (9-44); Metamyelocytes 3 % (0-1); Monocytes 7 % (0-8); Platelet Estimate Normal (Normal); Platelet Morphology Normal (Normal); Promyelocyte 1 % (0-0)
[2018-06-25] MEDS: Gabapentin 100 MG Capsule PO SCH ×3 (01:52→18:00)
[2018-06-25] MEDS: Morphine Sulfate Inj 2 MG/ML Vial IV.PUSH PRN ×5 (01:52→21:17)
--- NOTE | 2018-06-25 04:50 | XR ---
EXAM DATE: 06/25/2018 6:00 AM EDT AGE/SEX: 68 years / Female INDICATIONS: Shortness of breath, possible pulmonary disease. CLINICAL DATA: This is the patient's subsequent encounter. Patient reports that signs and symptoms h ave been present for 1 week and indicates a pain score of 0/10. MEDICAL/SURGICAL HISTORY: Chronic obstructive pulmonary disease. Hypertension. PE. Cholecyste ctomy. [place] [facility] [place]. . FINDINGS: The heart size is normal. There is mild increased density at the bases which appears to be improving. There is minimal blunting of the left costophrenic angle. CONCLUSION: Improving bibasilar areas of consolidation or atelectasis. Electronically signed by: Brando Courtney MD 06/25/2018 4:49 AM EDT
[2018-06-25 05:39] LABS: Alanine Aminotransferase 15 U/L (10-53); Albumin 3.3 g/dL (3.4-5.0); Anion Gap 8 meq/L (5-15); Aspartate Aminotransferase 9 U/L (15-37); Blood Urea Nitrogen 86 mg/dL (7-18); Calcium 8.5 mg/dL (8.5-10.1); Carbon Dioxide 36.6 meq/L (21.0-32.0); Chloride 97 meq/L (98-107); Glomerular Filtration Rate 27 mL/min (>89); Glucose,Random 206 mg/dL (74-106); Magnesium 2.2 mg/dL (1.5-2.5); Phosphorus 3.7 mg/dL (2.5-4.9); Potassium 3.6 meq/L (3.5-5.1); Sodium 142 meq/L (136-145)
[2018-06-25 05:41] LABS: Alkaline Phosphatase 56 U/L (45-117); Total Protein 5.5 g/dL (6.4-8.2)
[2018-06-25] MEDS: Insulin NovoLOG Aspart Correctional Sugar Inj SQ SCH ×4 (07:46→21:47)
[2018-06-25] MEDS: Budesonide-Formoterol 160/4.5 MCG 6 GM Inhaler INH SCH ×2 (08:00→23:25)
[2018-06-25] MEDS: Insulin Detemir Inj 1,000 UNIT/10 ML Vial SQ SCH ×2 (08:00→21:27)
[2018-06-25] MEDS: predniSONE 10 MG Tablet PO SCH (09:38)
[2018-06-25] MEDS: amLODIPine 5 MG Tablet PO SCH (09:38)
[2018-06-25] MEDS: Carvedilol 12.5 MG Tablet PO SCH ×2 (09:39→21:47)
--- NOTE | 2018-06-25 10:55 | P.PNNP ---
Subjective Interval history: Patient feels better, complain of nausea and weakness Physical Exam Vital signs: Vital Signs 06/24/18 11:00 06/24/18 11:15 06/24/18 11:30 Temperature Pulse Rate 67 66 68 Respiratory Rate 11 L 13 12 Blood Pressure 123/58 L Pulse Oximetry 100 100 100 06/24/18 11:45 06/24/18 11:50 06/24/18 12:00 Temperature Pulse Rate 72 70 69 Respiratory Rate 14 16 13 Blood Pressure 125/58 L Pulse Oximetry 100 100 06/24/18 12:15 06/24/18 12:30 06/24/18 12:45 Temperature Pulse Rate 65 65 63 Respiratory Rate 12 12 13 Blood Pressure Pulse Oximetry 100 100 100 06/24/18 13:00 06/24/18 13:15 06/24/18 13:30 Temperature Pulse Rate 71 71 67 Respiratory Rate 12 11 L 11 L Blood Pressure 145/66 H Pulse Oximetry 99 99 100 06/24/18 13:45 06/24/18 14:00 06/24/18 14:15 Temperature Pulse Rate 65 68 66 Respiratory Rate 12 11 L 13 Blood Pressure 134/64 Pulse Oximetry 99 100 99 06/24/18 14:30 06/24/18 14:45 06/24/18 15:00 Temperature Pulse Rate 65 64 64 Respiratory Rate 12 12 12 Blood Pressure 117/58 L Pulse Oximetry 99 99 98 06/24/18 15:15 06/24/18 15:30 06/24/18 15:45 Temperature Pulse Rate 64 64 63 Respiratory Rate 13 13 13 Blood Pressure Pulse Oximetry 98 97 98 06/24/18 16:00 06/24/18 16:15 06/24/18 16:30 Temperature Pulse Rate 63 64 69 Respiratory Rate 12 13 11 L Blood Pressure 123/58 L Pulse Oximetry 98 98 98 06/24/18 16:45 06/24/18 17:00 06/24/18 17:01 Temperature Pulse Rate 70 68 67 Respiratory Rate 25 H 13 14 Blood Pressure 158/70 H Pulse Oximetry 95 98 98 06/24/18 17:15 06/24/18 17:30 06/24/18 17:45 Temperature Pulse Rate 66 69 69 Respiratory Rate 20 21 14 Blood Pressure Pulse Oximetry 99 95 90 L 06/24/18 18:00 06/24/18 18:15 06/24/18 18:30 Temperature Pulse Rate 70 67 67 Respiratory Rate 11 L 11 L 10 L Blood Pressure 119/59 L Pulse Oximetry 92 L 97 96 06/24/18 18:39 06/24/18 18:45 06/24/18 19:00 Temperature Pulse Rate 65 67 Respiratory Rate 18 11 L 13 Blood Pressure 123/60 Pulse Oximetry 97 96 06/24/18 19:14 06/24/18 19:15 06/24/18 19:30 Temperature Pulse Rate 68 67 65 Respiratory Rate 16 13 11 L Blood Pressure Pulse Oximetry 99 99 100 06/24/18 19:45 06/24/18 20:00 06/24/18 20:15 Temperature 98.3 F Pulse Rate 68 66 71 Respiratory Rate 11 L 10 L 13 Blood Pressure 122/56 L Pulse Oximetry 98 99 98 06/24/18 20:30 06/24/18 20:45 06/24/18 21:00 Temperature Pulse Rate 66 63 67 Respiratory Rate 13 11 L 12 Blood Pressure 104/61 Pulse Oximetry 100 100 92 L 06/24/18 21:15 06/24/18 21:30 06/24/18 21:45 Temperature Pulse Rate 64 62 62 Respiratory Rate 11 L 12 11 L Blood Pressure Pulse Oximetry 100 100 100 06/24/18 22:00 06/24/18 22:15 06/24/18 22:30 Temperature Pulse Rate 62 62 65 Respiratory Rate 12 12 12 Blood Pressure 109/53 L Pulse Oximetry 99 100 100 06/24/18 22:45 06/24/18 23:00 06/24/18 23:15 Temperature Pulse Rate 65 63 63 Respiratory Rate 11 L 11 L 12 Blood Pressure 91/46 L Pulse Oximetry 96 96 96 06/24/18 23:30 06/24/18 23:45 06/25/18 00:00 Temperature 98.6 F Pulse Rate 61 62 63 Respiratory Rate 12 12 11 L Blood Pressure Pulse Oximetry 99 100 97 06/25/18 00:01 06/25/18 00:15 06/25/18 00:30 Temperature Pulse Rate 63 61 63 Respiratory Rate 11 L 11 L 14 Blood Pressure 118/59 L Pulse Oximetry 97 100 100 06/25/18 00:45 06/25/18 01:00 06/25/18 01:15 Temperature Pulse Rate 63 62 61 Respiratory Rate 11 L 11 L 12 Blood Pressure 128/58 L Pulse Oximetry 99 100 96 06/25/18 01:30 06/25/18 01:45 06/25/18 02:00 Temperature Pulse Rate 61 60 63 Respiratory Rate 12 12 11 L Blood Pressure 131/70 Pulse Oximetry 98 99 97 06/25/18 02:15 06/25/18 02:30 06/25/18 02:45 Temperature Pulse Rate 64 61 61 Respiratory Rate 22 10 L 10 L Blood Pressure Pulse Oximetry 95 97 93 L 06/25/18 03:00 06/25/18 03:15 06/25/18 03:30 Temperature Pulse Rate 62 61 62 Respiratory Rate 11 L 12 11 L Blood Pressure 132/60 Pulse Oximetry 95 96 95 06/25/18 03:45 06/25/18 04:00 06/25/18 04:15 Temperature 98 F Pulse Rate 58 L 61 60 Respiratory Rate 12 12 12 Blood Pressure 140/62 Pulse Oximetry 94 L 94 L 92 L 06/25/18 04:30 06/25/18 04:45 06/25/18 05:00 Temperature Pulse Rate 62 63 68 Respiratory Rate 12 12 28 H Blood Pressure 156/72 H Pulse Oximetry 93 L 94 L 92 L 06/25/18 05:15 06/25/18 06:00 06/25/18 08:46 Temperature Pulse Rate 67 62 64 Respiratory Rate 12 12 Blood Pressure Pulse Oximetry 93 L 97 Intake & Output 06/24/18 06/25/18 06/25/18 18:59 06:59 18:59 Intake Total 750 / 750 1240 / 1240 Output Total 1300 / 1300 Balance -550 / -550 1240 / 1240 Weight 79 kg Intake: IV 750 / 750 400 / 400 Zyvox 600 mg Premix 300 ML @ 600 / 600 300 / 300 300 mls/hr IV.SIG Q12H ANNE Rx#: [id number] Zosyn 3.375 GM Premix 50 ML @ 150 / 150 100 / 100 100 mls/hr IV.SIG Q6H ANNE Rx#: [id number] Oral 840 / 840 Output: Urine 1300 / 1300 Other: # Incontinent Voids 2 Date of Last Bowel Movement 06/23/18 06/23/18 # Bowel Movements 2 Narrative: Chronically ill-appearing elderly female in NAD. SKIN: Cool and Pale. HEENT: Pupils equal and round. Pale conjunctiva. Throat clear. NECK: Supple no tender LAD or JVD. HEART: RRR no m/r/g. LUNGS: Few BI basal crackles and no Wheezes ABDOMEN: +BS, soft, nondistended. Obese and No organomegaly. EXTREMITIES: No edema. Diminished pedal pulses. NEURO: Awake confused. No focal deficits. - Urinary Catheter Management Indwelling Urethral Catheter Cath placed during this visit: yes, but has since been removed by the nurse Reason for continuing: Continue criteria not met Insertion date: 06/08/18 Insertion time: 16:15 Removal date: 06/15/18 Removal time: 12:00 Assessment and Plan - Assessment (1) GI bleed requiring more than 4 units of blood in 24 hours, ICU, or surgery Code(s): K92.2 - Gastrointestinal hemorrhage, unspecified Status: Acute (2) Anemia Code(s): D64.9 - Anemia, unspecified Status: Acute Qualifiers: Other causes of anemia: acute posthemorrhagic (3) Shock Code(s): R57.9 - Shock, unspecified Status: Acute (4) Sepsis Code(s): A41.9 - Sepsis, unspecified organism Status: Acute - Plan Patient had pneumonia, and back to ICU on Bipap Patient is in ARF on zyvox/zosyn Acute renal failure appears to be due to hypoperfusion of the kidney as a result of sepsis Creatinine 1.8. urine output 1.3 L --- Follow BMP and the urine out put.
--- NOTE | 2018-06-25 11:46 | P.PNIM ---
Subjective Interval history: Patient reports she is feeling okay today except for feeling tired and weak. Physical Exam Vital signs: Vital Signs 06/24/18 11:50 06/24/18 12:00 06/24/18 12:15 Temperature Pulse Rate 70 69 65 Respiratory Rate 16 13 12 Blood Pressure 125/58 L Pulse Oximetry 100 100 06/24/18 12:30 06/24/18 12:45 06/24/18 13:00 Temperature Pulse Rate 65 63 71 Respiratory Rate 12 13 12 Blood Pressure 145/66 H Pulse Oximetry 100 100 99 06/24/18 13:15 06/24/18 13:30 06/24/18 13:45 Temperature Pulse Rate 71 67 65 Respiratory Rate 11 L 11 L 12 Blood Pressure Pulse Oximetry 99 100 99 06/24/18 14:00 06/24/18 14:15 06/24/18 14:30 Temperature Pulse Rate 68 66 65 Respiratory Rate 11 L 13 12 Blood Pressure 134/64 Pulse Oximetry 100 99 99 06/24/18 14:45 06/24/18 15:00 06/24/18 15:15 Temperature Pulse Rate 64 64 64 Respiratory Rate 12 12 13 Blood Pressure 117/58 L Pulse Oximetry 99 98 98 06/24/18 15:30 06/24/18 15:45 06/24/18 16:00 Temperature Pulse Rate 64 63 63 Respiratory Rate 13 13 12 Blood Pressure 123/58 L Pulse Oximetry 97 98 98 06/24/18 16:15 06/24/18 16:30 06/24/18 16:45 Temperature Pulse Rate 64 69 70 Respiratory Rate 13 11 L 25 H Blood Pressure Pulse Oximetry 98 98 95 06/24/18 17:00 06/24/18 17:01 06/24/18 17:15 Temperature Pulse Rate 68 67 66 Respiratory Rate 13 14 20 Blood Pressure 158/70 H Pulse Oximetry 98 98 99 06/24/18 17:30 06/24/18 17:45 06/24/18 18:00 Temperature Pulse Rate 69 69 70 Respiratory Rate 21 14 11 L Blood Pressure 119/59 L Pulse Oximetry 95 90 L 92 L 06/24/18 18:15 06/24/18 18:30 06/24/18 18:39 Temperature Pulse Rate 67 67 Respiratory Rate 11 L 10 L 18 Blood Pressure Pulse Oximetry 97 96 06/24/18 18:45 06/24/18 19:00 06/24/18 19:14 Temperature Pulse Rate 65 67 68 Respiratory Rate 11 L 13 16 Blood Pressure 123/60 Pulse Oximetry 97 96 99 06/24/18 19:15 06/24/18 19:30 06/24/18 19:45 Temperature Pulse Rate 67 65 68 Respiratory Rate 13 11 L 11 L Blood Pressure Pulse Oximetry 99 100 98 06/24/18 20:00 06/24/18 20:15 06/24/18 20:30 Temperature 98.3 F Pulse Rate 66 71 66 Respiratory Rate 10 L 13 13 Blood Pressure 122/56 L Pulse Oximetry 99 98 100 06/24/18 20:45 06/24/18 21:00 06/24/18 21:15 Temperature Pulse Rate 63 67 64 Respiratory Rate 11 L 12 11 L Blood Pressure 104/61 Pulse Oximetry 100 92 L 100 06/24/18 21:30 06/24/18 21:45 06/24/18 22:00 Temperature Pulse Rate 62 62 62 Respiratory Rate 12 11 L 12 Blood Pressure 109/53 L Pulse Oximetry 100 100 99 06/24/18 22:15 06/24/18 22:30 06/24/18 22:45 Temperature Pulse Rate 62 65 65 Respiratory Rate 12 12 11 L Blood Pressure Pulse Oximetry 100 100 96 06/24/18 23:00 06/24/18 23:15 06/24/18 23:30 Temperature Pulse Rate 63 63 61 Respiratory Rate 11 L 12 12 Blood Pressure 91/46 L Pulse Oximetry 96 96 99 06/24/18 23:45 06/25/18 00:00 06/25/18 00:01 Temperature 98.6 F Pulse Rate 62 63 63 Respiratory Rate 12 11 L 11 L Blood Pressure 118/59 L Pulse Oximetry 100 97 97 06/25/18 00:15 06/25/18 00:30 06/25/18 00:45 Temperature Pulse Rate 61 63 63 Respiratory Rate 11 L 14 11 L Blood Pressure Pulse Oximetry 100 100 99 06/25/18 01:00 06/25/18 01:15 06/25/18 01:30 Temperature Pulse Rate 62 61 61 Respiratory Rate 11 L 12 12 Blood Pressure 128/58 L Pulse Oximetry 100 96 98 06/25/18 01:45 06/25/18 02:00 06/25/18 02:15 Temperature Pulse Rate 60 63 64 Respiratory Rate 12 11 L 22 Blood Pressure 131/70 Pulse Oximetry 99 97 95 06/25/18 02:30 06/25/18 02:45 06/25/18 03:00 Temperature Pulse Rate 61 61 62 Respiratory Rate 10 L 10 L 11 L Blood Pressure 132/60 Pulse Oximetry 97 93 L 95 06/25/18 03:15 06/25/18 03:30 06/25/18 03:45 Temperature Pulse Rate 61 62 58 L Respiratory Rate 12 11 L 12 Blood Pressure Pulse Oximetry 96 95 94 L 06/25/18 04:00 06/25/18 04:15 06/25/18 04:30 Temperature 98 F Pulse Rate 61 60 62 Respiratory Rate 12 12 12 Blood Pressure 140/62 Pulse Oximetry 94 L 92 L 93 L 06/25/18 04:45 06/25/18 05:00 06/25/18 05:15 Temperature Pulse Rate 63 68 67 Respiratory Rate 12 28 H 12 Blood Pressure 156/72 H Pulse Oximetry 94 L 92 L 93 L 06/25/18 06:00 06/25/18 08:46 06/25/18 11:28 Temperature Pulse Rate 62 64 83 Respiratory Rate 12 12 Blood Pressure Pulse Oximetry 97 Intake & Output 06/24/18 06/25/18 06/25/18 18:59 06:59 18:59 Intake Total 750 / 750 1240 / 1240 Output Total 1300 / 1300 Balance -550 / -550 1240 / 1240 Weight 79 kg Intake: IV 750 / 750 400 / 400 Zyvox 600 mg Premix 300 ML @ 600 / 600 300 / 300 300 mls/hr IV.SIG Q12H ANNE Rx#: [id number] Zosyn 3.375 GM Premix 50 ML @ 150 / 150 100 / 100 100 mls/hr IV.SIG Q6H ANNE Rx#: [id number] Oral 840 / 840 Output: Urine 1300 / 1300 Other: # Incontinent Voids 2 Date of Last Bowel Movement 06/23/18 06/23/18 # Bowel Movements 2 Narrative: Chronically ill-appearing elderly female in NAD. SKIN: Warm and Pale. HEENT: Pupils equal and round. Pale conjunctiva. Throat clear. NECK: Supple no tender LAD or JVD. HEART: RRR no m/r/g. LUNGS: Few basal crackles and no Wheezes ABDOMEN: +BS, soft, nondistended. Obese and No organomegaly. EXTREMITIES: No edema. Diminished pedal pulses. NEURO: Awake and oriented . No focal deficits. - Urinary Catheter Management Indwelling Urethral Catheter Cath placed during this visit: yes, but has since been removed by the nurse Reason for continuing: Continue criteria not met Insertion date: 06/08/18 Insertion time: 16:15 Removal date: 06/15/18 Removal time: 12:00 Results - Labs CBC & Chem 7: 06/25/18 13:06 06/25/18 04:09 Laboratory Results - last 24 hr 06/24/18 06/24/18 06/24/18 17:57 20:08 23:55 WBC 15.0 H RBC 2.96 L Hgb 8.5 L Hct 26.4 L MCV 89.3 MCH 28.8 MCHC 32.3 RDW 17.2 Plt Count 188 MPV 9.3 Prelim Diff (Auto) Slide review pending Neut % (Auto) 87.8 H Lymph % (Auto) 4.8 L Randall % (Auto) 6.9 Eos % (Auto) 0.0 Baso % (Auto) 0.5 Neut # (Auto) 13.2 H Lymph # (Auto) 0.7 L Randall # (Auto) 1.0 H Eos # (Auto) 0.0 Baso # (Auto) 0.1 WBC Differential Manual diff final Seg Neuts % (Manual) 79 H Band Neuts % (Manual) 1 Lymphocytes % (Manual) 9 Monocytes % (Manual) 7 Metamyelocytes % (Man) 3 H Promyelocytes % (Man) 1 H Abs Neuts (Manual) 12.6 H Differential Comment . Platelet Estimate Normal Platelet Morphology Normal Keratocytes Occ H Sodium Potassium Chloride Carbon Dioxide Anion Gap BUN Creatinine Estimated GFR POC Glucose 287 H 232 H Random Glucose Calcium Phosphorus Magnesium Total Bilirubin AST ALT Alkaline Phosphatase Total Protein Albumin 06/24/18 06/25/18 06/25/18 23:55 04:09 07:22 WBC RBC Hgb Hct MCV MCH MCHC RDW Plt Count MPV Prelim Diff (Auto) Neut % (Auto) Lymph % (Auto) Randall % (Auto) Eos % (Auto) Baso % (Auto) Neut # (Auto) Lymph # (Auto) Randall # (Auto) Eos # (Auto) Baso # (Auto) WBC Differential Seg Neuts % (Manual) Band Neuts % (Manual) Lymphocytes % (Manual) Monocytes % (Manual) Metamyelocytes % (Man) Promyelocytes % (Man) Abs Neuts (Manual) Differential Comment Platelet Estimate Platelet Morphology Keratocytes Sodium 145 142 Potassium 3.5 3.6 Chloride 100 97 L Carbon Dioxide 37.5 H 36.6 H Anion Gap 8 8 BUN 94 H 86 H Creatinine 1.92 H 1.85 H Estimated GFR 26 L 27 L POC Glucose 250 H Random Glucose 180 H 206 H Calcium 8.5 8.5 Phosphorus 3.6 3.7 Magnesium 2.2 2.2 Total Bilirubin 0.6 0.6 AST 6 L 9 L ALT 15 15 Alkaline Phosphatase 56 56 Total Protein 5.5 L D 5.5 L Albumin 3.4 D 3.3 L - Imaging Impressions Chest X-Ray 06/25/18 06:00 CONCLUSION: Improving bibasilar areas of consolidation or atelectasis. - Procedures central line placement. Assessment and Plan - Assessment (1) STEPHIE (acute kidney injury) Code(s): N17.9 - Acute kidney failure, unspecified Status: Acute (2) GI hemorrhage Code(s): K92.2 - Gastrointestinal hemorrhage, unspecified Status: Resolved (3) Anemia Code(s): D64.9 - Anemia, unspecified Status: Acute (4) Respiratory failure Code(s): J96.90 - Respiratory failure, unspecified, unspecified whether with hypoxia or hypercapnia Status: Acute - Plan 68-year-old female with medical history significant for COPD, PE, on blood thinners, presented initially with complaint of GI bleed. Patient with prolonged hospital stay secondary to respiratory failure, hemorrhagic shock.: Ischemic colitis, colonoscopy 05/[address] Porter Severe erythematous gastritis, esophagitis on EGD 05/27 GI bleeding Fecal impaction, resolved Disimpacted in the ED. Hypoalbuminemia Elevated lipase of unclear significance Leukocytosis Normocytic anemia Continue pantoprazole 40 mg twice daily ADA diet 1999/mechanical soft with chopped meats CT abdomen pelvis 05/27no pneumatosis. There is SMA atherosclerosis without high-grade stenosis. EGD and colonoscopy 05/27 demonstrated severe erythematous gastritis, esophagitis , diverticulitis, sigmoid ischemic colitis. Developed acute GI bleeding with hemorrhagic shock on 05/28 after receiving dose of rivaroxaban. Held since H&H stable today. Will monitor for 1 more day. Metabolic encephalopathy Depression/anxiety disorder NOS Peripheral neuropathy Chronic benzodiazepine use on alprazolam 0.5 mg twice daily at home Oxycodone/acetaminophen 1 to 2 tabs as needed for pain Continue renally dosed gabapentin currently 200 mg every [address] brain 05/20 and 05/21 revealed no acute intracranial findings Alprazolam 0.25 mg every 6 hours as needed anxiety. Mild pulmonary edema Essential hypertension Hyperlipidemia Questionable atrial septal defect on echocardiogram 04/18 Hypovolemia shock from GI bleeding. 2D echocardiogram time revealed EF 65%. LVH. Essentially normal pulmonary arterial pressures. Continue hydralazine 100 mg 3 times daily, carvedilol 25 mg twice daily and amlodipine 5 mg daily and isosorbide dinitrate 20 mg 3 times daily Started on bumetanide drip at 0.5 mg/h per nephrology attempt to diurese. Discontinue 06/22 On atorvastatin 40 mg daily for dyslipidemia. Holding anticoagulation and antiplatelet therapy due to bleeding per GI recommendations Patient received blood transfusion. H&H stable. Acute hypoxemic and hypercarbic respiratory failure Right lower lobe pneumonia COPD with acute exacerbation History of pulmonary embolism on chronic rivaroxaban Initially treated with BiPAP 08/05. Currently stable on nasal cannula. On oral prednisone Extubated 05/21 previously Albuterol/ipratropium aerosols every 6 hours with albuterol aerosols every 2 as needed for dyspnea Continue budesonide/formoterol 160/4.5 2 puffs twice daily Hyperglycemia Chronic prednisone use - Bedside glucose every AC/at bedtime with medium dose insulin sliding scale aspart insulin as indicated. On insulin detemir 8 units subcu twice daily continued Acute kidney injury: Secondary to sepsis and prerenal azotemia. History of anterior urethral stricture Appreciate nephrology following. Renal functions improving. CT abdomen/pelvis revealed no hydronephrosis. Negative urine eosinophils. Avoid nephrotoxic medication. Healthcare associated pneumonia Sepsis Lisbeth glabrata UTI Patient has been on piperacillin/tazobactam and linezolid for pneumonia about 5 days.. Blood culture is negative. Transition to Augmentin and continue Zyvox Urine culture 06/08/2018 had been positive for Lisbeth glabrata. On micafungin. Plan to transition to high-dose fluconazole 800 mg daily for 7 more days Prophylaxis -GI -pantoprazole 40 BID -DVT-SCD/holding pharmacological prophylaxis in light of GI bleed Discharge Planning: Plan to DC to [facility] tomorrow. (3) Anemia Qualifiers: Other causes of anemia: acute posthemorrhagic (4) Respiratory failure Qualifiers: Chronicity: acute on chronic
--- NOTE | 2018-06-25 13:00 | P.PN ---
Subjective Interval history: c/O nausea. On O2 2 L now. No respiratory distress. Labs done. Physical Exam Vital signs: Vital Signs 06/24/18 13:00 06/24/18 13:15 06/24/18 13:30 Temperature Pulse Rate 71 71 67 Respiratory Rate 12 11 L 11 L Blood Pressure 145/66 H Pulse Oximetry 99 99 100 06/24/18 13:45 06/24/18 14:00 06/24/18 14:15 Temperature Pulse Rate 65 68 66 Respiratory Rate 12 11 L 13 Blood Pressure 134/64 Pulse Oximetry 99 100 99 06/24/18 14:30 06/24/18 14:45 06/24/18 15:00 Temperature Pulse Rate 65 64 64 Respiratory Rate 12 12 12 Blood Pressure 117/58 L Pulse Oximetry 99 99 98 06/24/18 15:15 06/24/18 15:30 06/24/18 15:45 Temperature Pulse Rate 64 64 63 Respiratory Rate 13 13 13 Blood Pressure Pulse Oximetry 98 97 98 06/24/18 16:00 06/24/18 16:15 06/24/18 16:30 Temperature Pulse Rate 63 64 69 Respiratory Rate 12 13 11 L Blood Pressure 123/58 L Pulse Oximetry 98 98 98 06/24/18 16:45 06/24/18 17:00 06/24/18 17:01 Temperature Pulse Rate 70 68 67 Respiratory Rate 25 H 13 14 Blood Pressure 158/70 H Pulse Oximetry 95 98 98 06/24/18 17:15 06/24/18 17:30 06/24/18 17:45 Temperature Pulse Rate 66 69 69 Respiratory Rate 20 21 14 Blood Pressure Pulse Oximetry 99 95 90 L 06/24/18 18:00 06/24/18 18:15 06/24/18 18:30 Temperature Pulse Rate 70 67 67 Respiratory Rate 11 L 11 L 10 L Blood Pressure 119/59 L Pulse Oximetry 92 L 97 96 06/24/18 18:39 06/24/18 18:45 06/24/18 19:00 Temperature Pulse Rate 65 67 Respiratory Rate 18 11 L 13 Blood Pressure 123/60 Pulse Oximetry 97 96 06/24/18 19:14 06/24/18 19:15 06/24/18 19:30 Temperature Pulse Rate 68 67 65 Respiratory Rate 16 13 11 L Blood Pressure Pulse Oximetry 99 99 100 06/24/18 19:45 06/24/18 20:00 06/24/18 20:15 Temperature 98.3 F Pulse Rate 68 66 71 Respiratory Rate 11 L 10 L 13 Blood Pressure 122/56 L Pulse Oximetry 98 99 98 06/24/18 20:30 06/24/18 20:45 06/24/18 21:00 Temperature Pulse Rate 66 63 67 Respiratory Rate 13 11 L 12 Blood Pressure 104/61 Pulse Oximetry 100 100 92 L 06/24/18 21:15 06/24/18 21:30 06/24/18 21:45 Temperature Pulse Rate 64 62 62 Respiratory Rate 11 L 12 11 L Blood Pressure Pulse Oximetry 100 100 100 06/24/18 22:00 06/24/18 22:15 06/24/18 22:30 Temperature Pulse Rate 62 62 65 Respiratory Rate 12 12 12 Blood Pressure 109/53 L Pulse Oximetry 99 100 100 06/24/18 22:45 06/24/18 23:00 06/24/18 23:15 Temperature Pulse Rate 65 63 63 Respiratory Rate 11 L 11 L 12 Blood Pressure 91/46 L Pulse Oximetry 96 96 96 06/24/18 23:30 06/24/18 23:45 06/25/18 00:00 Temperature 98.6 F Pulse Rate 61 62 63 Respiratory Rate 12 12 11 L Blood Pressure Pulse Oximetry 99 100 97 06/25/18 00:01 06/25/18 00:15 06/25/18 00:30 Temperature Pulse Rate 63 61 63 Respiratory Rate 11 L 11 L 14 Blood Pressure 118/59 L Pulse Oximetry 97 100 100 06/25/18 00:45 06/25/18 01:00 06/25/18 01:15 Temperature Pulse Rate 63 62 61 Respiratory Rate 11 L 11 L 12 Blood Pressure 128/58 L Pulse Oximetry 99 100 96 06/25/18 01:30 06/25/18 01:45 06/25/18 02:00 Temperature Pulse Rate 61 60 63 Respiratory Rate 12 12 11 L Blood Pressure 131/70 Pulse Oximetry 98 99 97 06/25/18 02:15 06/25/18 02:30 06/25/18 02:45 Temperature Pulse Rate 64 61 61 Respiratory Rate 22 10 L 10 L Blood Pressure Pulse Oximetry 95 97 93 L 06/25/18 03:00 06/25/18 03:15 06/25/18 03:30 Temperature Pulse Rate 62 61 62 Respiratory Rate 11 L 12 11 L Blood Pressure 132/60 Pulse Oximetry 95 96 95 06/25/18 03:45 06/25/18 04:00 06/25/18 04:15 Temperature 98 F Pulse Rate 58 L 61 60 Respiratory Rate 12 12 12 Blood Pressure 140/62 Pulse Oximetry 94 L 94 L 92 L 06/25/18 04:30 06/25/18 04:45 06/25/18 05:00 Temperature Pulse Rate 62 63 68 Respiratory Rate 12 12 28 H Blood Pressure 156/72 H Pulse Oximetry 93 L 94 L 92 L 06/25/18 05:15 06/25/18 06:00 06/25/18 08:46 Temperature Pulse Rate 67 62 64 Respiratory Rate 12 12 Blood Pressure Pulse Oximetry 93 L 97 06/25/18 11:28 Temperature Pulse Rate 83 Respiratory Rate 12 Blood Pressure Pulse Oximetry Intake & Output 06/24/18 06/25/18 06/25/18 18:59 06:59 18:59 Intake Total 750 / 750 1240 / 1240 Output Total 1300 / 1300 Balance -550 / -550 1240 / 1240 Weight 79 kg Intake: IV 750 / 750 400 / 400 Zyvox 600 mg Premix 300 ML @ 600 / 600 300 / 300 300 mls/hr IV.SIG Q12H ANNE Rx#: [id number] Zosyn 3.375 GM Premix 50 ML @ 150 / 150 100 / 100 100 mls/hr IV.SIG Q6H ANNE Rx#: [id number] Oral 840 / 840 Output: Urine 1300 / 1300 Other: # Incontinent Voids 2 Date of Last Bowel Movement 06/23/18 06/23/18 # Bowel Movements 2 Narrative: Chronically ill-appearing elderly female in NAD. SKIN: Warm and Pale. HEENT: Pupils equal and round. Pale conjunctiva. Throat clear. NECK: Supple no tender LAD or JVD. HEART: RRR no m/r/g. LUNGS: Few basal crackles and no Wheezes ABDOMEN: +BS, soft, nondistended. Obese and No organomegaly. EXTREMITIES: No edema. Diminished pedal pulses. NEURO: Awake and oriented . No focal deficits. - Urinary Catheter Management Indwelling Urethral Catheter Cath placed during this visit: yes, but has since been removed by the nurse Reason for continuing: Continue criteria not met Insertion date: 06/08/18 Insertion time: 16:15 Removal date: 06/15/18 Removal time: 12:00 Results - Labs CBC & Chem 7: 06/24/18 23:55 06/25/18 04:09 Laboratory Results - last 24 hr 06/24/18 06/24/18 06/24/18 17:57 20:08 23:55 WBC 15.0 H RBC 2.96 L Hgb 8.5 L Hct 26.4 L MCV 89.3 MCH 28.8 MCHC 32.3 RDW 17.2 Plt Count 188 MPV 9.3 Prelim Diff (Auto) Slide review pending Neut % (Auto) 87.8 H Lymph % (Auto) 4.8 L Zapata % (Auto) 6.9 Eos % (Auto) 0.0 Baso % (Auto) 0.5 Neut # (Auto) 13.2 H Lymph # (Auto) 0.7 L Z[place] # (Auto) 1.0 H Eos # (Auto) 0.0 Baso # (Auto) 0.1 WBC Differential Manual diff final Seg Neuts % (Manual) 79 H Band Neuts % (Manual) 1 Lymphocytes % (Manual) 9 Monocytes % (Manual) 7 Metamyelocytes % (Man) 3 H Promyelocytes % (Man) 1 H Abs Neuts (Manual) 12.6 H Differential Comment . Platelet Estimate Normal Platelet Morphology Normal Keratocytes Occ H Sodium Potassium Chloride Carbon Dioxide Anion Gap BUN Creatinine Estimated GFR POC Glucose 287 H 232 H Random Glucose Calcium Phosphorus Magnesium Total Bilirubin AST ALT Alkaline Phosphatase Total Protein Albumin 06/24/18 06/25/18 06/25/18 23:55 04:09 07:22 WBC RBC Hgb Hct MCV MCH MCHC RDW Plt Count MPV Prelim Diff (Auto) Neut % (Auto) Lymph % (Auto) Zapata % (Auto) Eos % (Auto) Baso % (Auto) Neut # (Auto) Lymph # (Auto) Zapata # (Auto) Eos # (Auto) Baso # (Auto) WBC Differential Seg Neuts % (Manual) Band Neuts % (Manual) Lymphocytes % (Manual) Monocytes % (Manual) Metamyelocytes % (Man) Promyelocytes % (Man) Abs Neuts (Manual) Differential Comment Platelet Estimate Platelet Morphology Keratocytes Sodium 145 142 Potassium 3.5 3.6 Chloride 100 97 L Carbon Dioxide 37.5 H 36.6 H Anion Gap 8 8 BUN 94 H 86 H Creatinine 1.92 H 1.85 H Estimated GFR 26 L 27 L POC Glucose 250 H Random Glucose 180 H 206 H Calcium 8.5 8.5 Phosphorus 3.6 3.7 Magnesium 2.2 2.2 Total Bilirubin 0.6 0.6 AST 6 L 9 L ALT 15 15 Alkaline Phosphatase 56 56 Total Protein 5.5 L D 5.5 L Albumin 3.4 D 3.3 L 06/25/18 11:44 WBC RBC Hgb Hct MCV MCH MCHC RDW Plt Count MPV Prelim Diff (Auto) Neut % (Auto) Lymph % (Auto) Zapata % (Auto) Eos % (Auto) Baso % (Auto) Neut # (Auto) Lymph # (Auto) Zapata # (Auto) Eos # (Auto) Baso # (Auto) WBC Differential Seg Neuts % (Manual) Band Neuts % (Manual) Lymphocytes % (Manual) Monocytes % (Manual) Metamyelocytes % (Man) Promyelocytes % (Man) Abs Neuts (Manual) Differential Comment Platelet Estimate Platelet Morphology Keratocytes Sodium Potassium Chloride Carbon Dioxide Anion Gap BUN Creatinine Estimated GFR POC Glucose 197 H Random Glucose Calcium Phosphorus Magnesium Total Bilirubin AST ALT Alkaline Phosphatase Total Protein Albumin - Imaging Impressions Chest X-Ray 06/25/18 06:00 CONCLUSION: Improving bibasilar areas of consolidation or atelectasis. - Procedures central line placement. Assessment and Plan - Assessment (1) GI bleed requiring more than 4 units of blood in 24 hours, ICU, or surgery Code(s): K92.2 - Gastrointestinal hemorrhage, unspecified Status: Acute (2) Anemia Code(s): D64.9 - Anemia, unspecified Status: Acute (3) Shock Code(s): R57.9 - Shock, unspecified Status: Acute (4) Major depression, recurrent Code(s): F33.9 - Major depressive disorder, recurrent, unspecified Status: Acute (5) Sepsis Code(s): A41.9 - Sepsis, unspecified organism Status: Acute (6) Atelectasis Code(s): J98.11 - Atelectasis Status: Acute (7) Respiratory failure Code(s): J96.90 - Respiratory failure, unspecified, unspecified whether with hypoxia or hypercapnia Status: Acute (8) Aspiration pneumonia Code(s): J69.0 - Pneumonitis due to inhalation of food and vomit Status: Acute (9) Mixed personality disorder Code(s): F60.89 - Other specific personality disorders Status: Suspected - Plan 1. O2 2 L N/C PRN 2. IS at bedside q3h 3. Duonebs qid and Q4H PRN 4. PT evaluation 5. Will cont Antibiotics . 6. CBC,BMP 7. Symbicort 160/4.5 mcg , 2puffs BID 8. Taper prednisone 15 mg daily (2) Anemia Qualifiers: Other causes of anemia: acute posthemorrhagic (7) Respiratory failure Qualifiers: Chronicity: acute on chronic
[2018-06-25 13:20] LABS: Hematocrit 29.5 % (35.0-46.0); Hemoglobin 9.5 gm/dL (11.6-15.3); Mean Corpuscular HGB Conc 32.3 % (32.0-36.0); Mean Corpuscular Hemoglobin 29.1 pg (27.0-34.0); Mean Corpuscular Volume 90.2 fL (80.0-100.0); Mean Platelet Volume 9.6 fL (7.0-11.0); Platelet Count 175 th/mm3 (150-450); Red Blood Count 3.27 mil/mm3 (4.00-5.30); Red Cell Distribution Width 17.5 % (11.6-17.2); White Blood Count 16.2 th/mm3 (4.0-11.0)
[2018-06-25] MEDS: guaiFENesin 600 MG ER Tablet PO SCH ×2 (13:51→21:26)
[2018-06-25] MEDS: Senna/Docusate Sodium 8.6/50 MG Tablet PO SCH ×2 (13:51→21:26)
[2018-06-25] MEDS: Mupirocin 2% Nasal Oint Topical Syringe EACH NARE SCH ×2 (14:20→21:47)
[2018-06-25] MEDS: Lactic Acid (Ammonium Lactate) 12% Lotion 225 GM Bottle TOPICAL SCH (14:20)
[2018-06-25] MEDS: Polyvinyl Alcohol/Povidone PF Opth Drops 0.4 ML Dropperette EACH EYE SCH ×2 (14:22→21:28)
[2018-06-25] MEDS: traZODone 50 MG Tablet PO SCH (21:27)
[2018-06-25] MEDS: Linezolid 600 MG Tablet PO SCH (21:29)
[2018-06-25] MEDS: Amoxicillin/Clavulanate 875/125 MG Tablet PO SCH (21:47)
[2018-06-26] MEDS: Gabapentin 100 MG Capsule PO SCH (01:59)
[2018-06-26] MEDS: oxyCODONE/Acetaminophen 10/325 Tablet PO PRN ×2 (02:37→08:30)
[2018-06-26 06:16] LABS: Hematocrit 24.7 % (35.0-46.0); Hemoglobin 8.1 gm/dL (11.6-15.3); Mean Corpuscular HGB Conc 32.9 % (32.0-36.0); Mean Corpuscular Hemoglobin 29.4 pg (27.0-34.0); Mean Corpuscular Volume 89.2 fL (80.0-100.0); Mean Platelet Volume 10.1 fL (7.0-11.0); Platelet Count 134 th/mm3 (150-450); Red Blood Count 2.77 mil/mm3 (4.00-5.30); Red Cell Distribution Width 17.3 % (11.6-17.2); White Blood Count 7.4 th/mm3 (4.0-11.0)
[2018-06-26 06:39] LABS: Calcium 8.5 mg/dL (8.5-10.1); Carbon Dioxide 34.9 meq/L (21.0-32.0); Potassium 3.2 meq/L (3.5-5.1)
--- NOTE | 2018-06-26 08:28 | P.DS ---
Date of admission: 05/20/18 04:45 Primary care physician: Dakota Azevedo MD Brief History from admission: HPI as documented by the admitting provider: 68-year-old female, with past medical history significant for COPD, PE, on blood thinners, presented initially with complaint of GI bleed. Per EMS report they were called to the care home for respiratory distress. On their arrival they state that she was not in respiratory distress but she was hypotensive with a systolic blood pressure in the 60s and delayed cap refill. Blood sugar was within normal limits. They noted dark bloody stools. They were able to secure an IV and route did give her about 350 cc of fluids prior to arrival. Her last blood pressure prior to arrival was in the 110s systolic. Patient was able to say that her abdomen hurts but was not answering too many more questions, she denied chest pain, shortness of breath. The CT of the abdomen showed only large amount of stool in the bowel and the patient passed a large volume of stool after manual disimpaction. Shortly after this she has lost consciousness, became unresponsive with GCS of 3 requiring emergent intubation for an airway protection by ED attending. Patient update on day of discharge: Patient reports she is feeling okay today. Tired but no acute distress. DS: Diagnosis - Discharge Diagnosis (1) STEPHIE (acute kidney injury) Status: Acute (2) Anemia Status: Acute (3) Respiratory failure Status: Acute DS: Medications - Discharge Medications Prescriptions: amoxicillin-pot clavulanate 1 tab PO Q12HR #14 tab oxycodone-acetaminophen 1 tab PO Q6H PRN #12 tab PRN Reason: Pain (Scale Score 7-10) DS: Summary Hospital Course: 68-year-old female with medical history significant for COPD, PE, on blood thinners, presented initially with complaint of GI bleed. Patient with prolonged hospital stay secondary to respiratory failure, hemorrhagic shock. Evaluation and treatment course detailed below: Ischemic colitis, colonoscopy 05/[address] Porter Severe erythematous gastritis, esophagitis on EGD 05/27 GI bleeding Fecal impaction, resolved Disimpacted in the ED. Hypoalbuminemia Elevated lipase of unclear significance Leukocytosis Normocytic anemia Continue pantoprazole 40 mg twice daily ADA diet 2000/mechanical soft with chopped meats CT abdomen pelvis 05/27no pneumatosis. There is SMA atherosclerosis without high-grade stenosis. EGD and colonoscopy 05/27 demonstrated severe erythematous gastritis, esophagitis , diverticulitis, sigmoid ischemic colitis. Developed acute GI bleeding with hemorrhagic shock on 05/28 after receiving dose of rivaroxaban. Held since H&H stable stabilized. Metabolic encephalopathy Depression/anxiety disorder NOS Peripheral neuropathy Chronic benzodiazepine use on alprazolam 0.5 mg twice daily at home Oxycodone/acetaminophen 10/325 1 to 2 tabs as needed for pain Continue renally dosed gabapentin currently 200 mg every [address] brain 05/20 and 05/21 revealed no acute intracranial findings Alprazolam 0.25 mg every 6 hours as needed anxiety. Mild pulmonary edema Essential hypertension Hyperlipidemia Questionable atrial septal defect on echocardiogram 04/18 Hypovolemia shock from GI bleeding. 2D echocardiogram time revealed EF 65%. LVH. Essentially normal pulmonary arterial pressures. Continue hydralazine 100 mg 3 times daily, carvedilol 25 mg twice daily and amlodipine 5 mg daily and isosorbide dinitrate 20 mg 3 times daily Started on bumetanide drip at 0.5 mg/h per nephrology attempt to diurese. Discontinue 06/22 On atorvastatin 40 mg daily for dyslipidemia. Holding anticoagulation and antiplatelet therapy due to bleeding per GI recommendations Patient received blood transfusion. H&H stable. Acute hypoxemic and hypercarbic respiratory failure Right lower lobe pneumonia COPD with acute exacerbation History of pulmonary embolism on chronic rivaroxaban Initially treated with BiPAP 08/05. Currently stable on nasal cannula. On oral prednisone Extubated 05/21 previously Albuterol/ipratropium aerosols every 6 hours with albuterol aerosols every 2 as needed for dyspnea Continue budesonide/formoterol 160/4.5 2 puffs twice daily Hyperglycemia Chronic prednisone use - Bedside glucose every AC/at bedtime with medium dose insulin sliding scale aspart insulin as indicated. On insulin detemir 8 units subcu twice daily continued Acute kidney injury: Secondary to sepsis and prerenal azotemia. History of anterior urethral stricture Appreciate nephrology following. Renal functions improving. CT abdomen/pelvis revealed no hydronephrosis. Negative urine eosinophils. Avoid nephrotoxic medication. Healthcare associated pneumonia Sepsis Lisbeth glabrata UTI Patient has been on piperacillin/tazobactam and linezolid for pneumonia about 5 days.. Blood culture is negative. Transition to Augmentin and continue Zyvox Urine culture 06/08/2018 had been positive for Lisbeth glabrata. On micafungin. She was transitioned to high-dose fluconazole. - Time Spent with Patient Total time spent providing and/or coordinating discharge services: Greater than 30 minutes - Quality: VTE Deep Vein Thrombosis/Pulmonary Embolism Present on Admission: No Exam Vital signs: Vital Signs 06/25/18 08:46 06/25/18 10:00 06/25/18 11:28 Temperature Pulse Rate 64 64 83 Respiratory Rate 12 12 Blood Pressure Pulse Oximetry 97 06/25/18 12:00 06/25/18 13:30 06/25/18 13:45 Temperature 98.0 F Pulse Rate 64 62 70 Respiratory Rate 14 11 L 13 Blood Pressure 127/60 Pulse Oximetry 93 L 94 L 91 L 06/25/18 14:00 06/25/18 14:15 06/25/18 14:30 Temperature Pulse Rate 67 66 66 Respiratory Rate 11 L 15 10 L Blood Pressure 133/58 L Pulse Oximetry 84 L 91 L 87 L 06/25/18 14:45 06/25/18 15:00 06/25/18 15:01 Temperature Pulse Rate 64 64 64 Respiratory Rate 10 L 10 L 11 L Blood Pressure 117/58 L Pulse Oximetry 95 95 95 06/25/18 15:15 06/25/18 15:30 06/25/18 15:45 Temperature Pulse Rate 68 66 72 Respiratory Rate 11 L 11 L 21 Blood Pressure Pulse Oximetry 91 L 95 83 L 06/25/18 16:00 06/25/18 16:15 06/25/18 16:30 Temperature 98.3 F Pulse Rate 66 65 65 Respiratory Rate 9 L 11 L 11 L Blood Pressure 125/54 L Pulse Oximetry 95 06/25/18 16:45 06/25/18 17:00 06/25/18 17:15 Temperature Pulse Rate 65 69 65 Respiratory Rate 12 8 L 11 L Blood Pressure 108/52 L Pulse Oximetry 100 97 06/25/18 17:30 06/25/18 17:45 06/25/18 18:00 Temperature Pulse Rate 71 69 72 Respiratory Rate 12 12 20 Blood Pressure 117/56 L Pulse Oximetry 98 94 L 06/25/18 18:06 06/25/18 18:15 06/25/18 18:30 Temperature Pulse Rate 67 66 Respiratory Rate 15 13 11 L Blood Pressure Pulse Oximetry 06/25/18 18:38 06/25/18 18:45 06/25/18 19:00 Temperature Pulse Rate 69 69 Respiratory Rate 16 21 11 L Blood Pressure Pulse Oximetry 06/25/18 19:01 06/25/18 19:15 06/25/18 19:30 Temperature Pulse Rate 70 73 70 Respiratory Rate 12 15 14 Blood Pressure 125/56 L Pulse Oximetry 93 L 06/25/18 19:45 06/25/18 20:00 06/25/18 20:01 Temperature 99.1 F Pulse Rate 68 71 71 Respiratory Rate 10 L 18 16 Blood Pressure 118/49 L Pulse Oximetry 90 L 91 L 95 06/25/18 20:15 06/25/18 20:30 06/25/18 20:45 Temperature Pulse Rate 70 70 65 Respiratory Rate 17 11 L 12 Blood Pressure Pulse Oximetry 95 89 L 94 L 06/25/18 21:00 06/25/18 21:15 06/25/18 21:30 Temperature Pulse Rate 69 66 69 Respiratory Rate 13 12 18 Blood Pressure 106/51 L Pulse Oximetry 93 L 94 L 93 L 06/25/18 21:45 06/25/18 21:47 06/25/18 22:00 Temperature Pulse Rate 66 75 Respiratory Rate 10 L 15 20 Blood Pressure Pulse Oximetry 94 L 92 L 06/25/18 22:01 06/25/18 22:15 06/25/18 22:30 Temperature Pulse Rate 73 64 64 Respiratory Rate 17 10 L 11 L Blood Pressure 112/71 Pulse Oximetry 92 L 89 L 87 L 06/25/18 22:45 06/25/18 23:00 06/25/18 23:15 Temperature Pulse Rate 64 63 60 Respiratory Rate 12 10 L 11 L Blood Pressure 129/59 L Pulse Oximetry 96 97 97 06/25/18 23:30 06/25/18 23:45 06/26/18 00:00 Temperature 99 F Pulse Rate 60 59 L 63 Respiratory Rate 12 11 L 12 Blood Pressure 101/55 L Pulse Oximetry 97 98 97 06/26/18 00:15 06/26/18 00:30 06/26/18 00:45 Temperature Pulse Rate 59 L 59 L 59 L Respiratory Rate 11 L 12 12 Blood Pressure Pulse Oximetry 97 97 96 06/26/18 01:00 06/26/18 01:15 06/26/18 01:30 Temperature Pulse Rate 58 L 59 L 63 Respiratory Rate 11 L 11 L 13 Blood Pressure 95/49 L Pulse Oximetry 96 96 95 06/26/18 01:45 06/26/18 02:00 06/26/18 02:15 Temperature Pulse Rate 63 71 68 Respiratory Rate 13 13 19 Blood Pressure 143/62 H Pulse Oximetry 95 94 L 92 L 06/26/18 02:30 06/26/18 02:45 06/26/18 03:00 Temperature Pulse Rate 64 63 63 Respiratory Rate 12 10 L 12 Blood Pressure Pulse Oximetry 93 L 93 L 94 L 06/26/18 03:01 06/26/18 03:15 06/26/18 03:30 Temperature Pulse Rate 62 59 L 64 Respiratory Rate 11 L 11 L 10 L Blood Pressure 118/58 L Pulse Oximetry 94 L 94 L 94 L 06/26/18 03:45 06/26/18 03:49 06/26/18 04:00 Temperature 98 F Pulse Rate 61 63 Respiratory Rate 9 L 15 Blood Pressure 119/54 L Pulse Oximetry 93 L 95 94 L 06/26/18 06:00 Temperature Pulse Rate 68 Respiratory Rate Blood Pressure Pulse Oximetry Intake & Output 06/25/18 06/26/18 06/26/18 18:59 06:59 18:59 Intake Total 720 / 720 400 / 400 Output Total 550 / 550 400 / 400 Balance 170 / 170 0 / 0 Weight 80.4 kg Intake: Oral 720 / 720 400 / 400 Output: Urine 550 / 550 400 / 400 Other: # Incontinent Voids 3 Date of Last Bowel Movement 06/23/18 06/23/18 # Bowel Movements 0 Narrative: Chronically ill-appearing elderly female in [facility]. SKIN: Warm and Pale. HEENT: Pupils equal and round. Pale conjunctiva. Throat clear. NECK: Supple no tender LAD or JVD. HEART: RRR no m/r/g. LUNGS: Few basal crackles and no Wheezes ABDOMEN: +BS, soft, nondistended. Obese and No organomegaly. EXTREMITIES: No edema. Diminished pedal pulses. NEURO: Awake and oriented . No focal deficits. Results Procedures completed during hospitalization: central line placement. Completed studies during hospitalization: Pending at discharge 05/27/18 07:49 Surgical [PTH] Routine Labs on day of discharge: Labs from last 24 hours 06/26/18 06/26/18 06/25/18 04:25 04:25 21:24 WBC 7.4 D RBC 2.77 L Hgb 8.1 L Hct 24.7 L MCV 89.2 MCH 29.4 MCHC 32.9 RDW 17.3 H Plt Count 134 L MPV 10.1 Sodium 144 Potassium 3.2 L Chloride 100 Carbon Dioxide 34.9 H Anion Gap 9 BUN 78 H Creatinine 1.81 H Estimated GFR 28 L POC Glucose 268 H Random Glucose 110 H Calcium 8.5 06/25/18 06/25/18 06/25/18 18:03 15:47 13:06 WBC 16.2 H RBC 3.27 L Hgb 9.5 L Hct 29.5 L MCV 90.2 MCH 29.1 MCHC 32.3 RDW 17.5 H Plt Count 175 MPV 9.6 Sodium Potassium Chloride Carbon Dioxide Anion Gap BUN Creatinine Estimated GFR POC Glucose 315 H 331 H Random Glucose Calcium 06/25/18 11:44 WBC RBC Hgb Hct MCV MCH MCHC RDW Plt Count MPV Sodium Potassium Chloride Carbon Dioxide Anion Gap BUN Creatinine Estimated GFR POC Glucose 197 H Random Glucose Calcium - Impressions ITS Impressions Abdomen X-Ray 05/20/18 02:10 CONCLUSION: Nonspecific, benign abdomen appearance. Abdomen/Pelvis CT 05/20/18 02:10 CONCLUSION: Rectal fecal impaction and likely mild proctitis Head CT 05/21/18 19:41 CONCLUSION: 1. No acute findings. Stable exam since May 20. Chronic white matter ischemic changes. Retention cyst right maxillary sinus. . Abdomen/Pelvis CTA 05/27/18 00:00 CONCLUSION: 1. There is severe atherosclerotic disease of the aorta. Atherosclerotic disease is present within the superior mesenteric artery but no high-grade stenosis or occlusion is visualized on the arterial side of the mesenteric vasculature. Please note that the venous mesenteric structures are not well evaluated on this examination timed for arterial enhancement. Additionally, there are no secondary findings to suggest mesenteric ischemia including no intramural air. 2. Wall thickening of the rectum suggesting a proctitis. 3. New small bilateral pleural effusions and new small volume of free fluid in the abdomen and pelvis. Also, anasarca is new. Abdomen/Bladder Ultrasound 06/08/18 00:00 CONCLUSION: 1. Negative renal sonogram. No obstruction observed. Venous Doppler Study 06/13/18 00:00 CONCLUSION: 1. The study is negative for bilateral lower extremity deep venous thrombosis. Chest X-Ray 06/25/18 06:00 CONCLUSION: Improving bibasilar areas of consolidation or atelectasis. Discharge Plan - Discharge Disposition Patient Disposition: 03 Discharge to SNF - Discharge Condition Condition: Stable - Discharge Order Discharge Orders: Discharge Order (Routine); Ordered 06/26/18 Ordered By: Felipe Jackson - Physicians Team Primary Care Provider: Dakota Aezvedo V Attending Provider: Felipe Jackson Other Providers: Julián Navarro MD ; [facility] ; [facility], [facility] ; [facility] ; Cathie Porter MD ; Brando Gruber MD ; Pat Avendano MD ; [facility] ; [facility] ; Maria Isabel Carnes MD ; Brooke Michaels MD
[2018-06-26] MEDS: Amoxicillin/Clavulanate 875/125 MG Tablet PO SCH (08:31)
[2018-06-26] MEDS: Carvedilol 12.5 MG Tablet PO SCH (08:31)
[2018-06-26] MEDS: guaiFENesin 600 MG ER Tablet PO SCH (08:31)
[2018-06-26] MEDS: Linezolid 600 MG Tablet PO SCH (08:31)
[2018-06-26] MEDS: Budesonide-Formoterol 160/4.5 MCG 6 GM Inhaler INH SCH (08:32)
[2018-06-26] MEDS: Senna/Docusate Sodium 8.6/50 MG Tablet PO SCH (08:32)
[2018-06-26] MEDS: Polyvinyl Alcohol/Povidone PF Opth Drops 0.4 ML Dropperette EACH EYE SCH (08:32)
[2018-06-26] MEDS: Lactic Acid (Ammonium Lactate) 12% Lotion 225 GM Bottle TOPICAL SCH (08:32)
[2018-06-26] MEDS: Mupirocin 2% Nasal Oint Topical Syringe EACH NARE SCH (08:38)
[2018-06-26] MEDS: Insulin Detemir Inj 1,000 UNIT/10 ML Vial SQ SCH (08:38)
[2018-06-26] MEDS ORDERED: predniSONE 5 MG Tablet PO SCH (09:00)
[2018-06-26 09:26] LABS: Hematocrit 27.7 % (35.0-46.0); Hemoglobin 8.9 gm/dL (11.6-15.3)
--- NOTE | 2018-06-26 10:09 | P.PNNP ---
Subjective Interval history: Patient getting ready to be moved to rehabilitation Physical Exam Vital signs: Vital Signs 06/25/18 11:28 06/25/18 12:00 06/25/18 13:30 Temperature 98.0 F Pulse Rate 83 64 62 Respiratory Rate 12 14 11 L Blood Pressure 127/60 Pulse Oximetry 93 L 94 L 06/25/18 13:45 06/25/18 14:00 06/25/18 14:15 Temperature Pulse Rate 70 67 66 Respiratory Rate 13 11 L 15 Blood Pressure 133/58 L Pulse Oximetry 91 L 84 L 91 L 06/25/18 14:30 06/25/18 14:45 06/25/18 15:00 Temperature Pulse Rate 66 64 64 Respiratory Rate 10 L 10 L 10 L Blood Pressure Pulse Oximetry 87 L 95 95 06/25/18 15:01 06/25/18 15:15 06/25/18 15:30 Temperature Pulse Rate 64 68 66 Respiratory Rate 11 L 11 L 11 L Blood Pressure 117/58 L Pulse Oximetry 95 91 L 95 06/25/18 15:45 06/25/18 16:00 06/25/18 16:15 Temperature 98.3 F Pulse Rate 72 66 65 Respiratory Rate 21 9 L 11 L Blood Pressure 125/54 L Pulse Oximetry 83 L 95 06/25/18 16:30 06/25/18 16:45 06/25/18 17:00 Temperature Pulse Rate 65 65 69 Respiratory Rate 11 L 12 8 L Blood Pressure 108/52 L Pulse Oximetry 100 06/25/18 17:15 06/25/18 17:30 06/25/18 17:45 Temperature Pulse Rate 65 71 69 Respiratory Rate 11 L 12 12 Blood Pressure Pulse Oximetry 97 98 94 L 06/25/18 18:00 06/25/18 18:06 06/25/18 18:15 Temperature Pulse Rate 72 67 Respiratory Rate 20 15 13 Blood Pressure 117/56 L Pulse Oximetry 06/25/18 18:30 06/25/18 18:38 06/25/18 18:45 Temperature Pulse Rate 66 69 Respiratory Rate 11 L 16 21 Blood Pressure Pulse Oximetry 06/25/18 19:00 06/25/18 19:01 06/25/18 19:15 Temperature Pulse Rate 69 70 73 Respiratory Rate 11 L 12 15 Blood Pressure 125/56 L Pulse Oximetry 06/25/18 19:30 06/25/18 19:45 10/25/18 20:00 Temperature 99.1 F Pulse Rate 70 68 71 Respiratory Rate 14 10 L 18 Blood Pressure 118/49 L Pulse Oximetry 93 L 90 L 91 L 06/25/18 20:01 06/25/18 20:15 06/25/18 20:30 Temperature Pulse Rate 71 70 70 Respiratory Rate 16 17 11 L Blood Pressure Pulse Oximetry 95 95 89 L 06/25/18 20:45 06/25/18 21:00 06/25/18 21:15 Temperature Pulse Rate 65 69 66 Respiratory Rate 12 13 12 Blood Pressure 106/51 L Pulse Oximetry 94 L 93 L 94 L 06/25/18 21:30 06/25/18 21:45 06/25/18 21:47 Temperature Pulse Rate 69 66 Respiratory Rate 18 10 L 15 Blood Pressure Pulse Oximetry 93 L 94 L 06/25/18 22:00 06/25/18 22:01 06/25/18 22:15 Temperature Pulse Rate 75 73 64 Respiratory Rate 20 17 10 L Blood Pressure 112/71 Pulse Oximetry 92 L 92 L 89 L 06/25/18 22:30 06/25/18 22:45 06/25/18 23:00 Temperature Pulse Rate 64 64 63 Respiratory Rate 11 L 12 10 L Blood Pressure 129/59 L Pulse Oximetry 87 L 96 97 06/25/18 23:15 06/25/18 23:30 06/25/18 23:45 Temperature Pulse Rate 60 60 59 L Respiratory Rate 11 L 12 11 L Blood Pressure Pulse Oximetry 97 97 98 06/26/18 00:00 06/26/18 00:15 06/26/18 00:30 Temperature 99 F Pulse Rate 63 59 L 59 L Respiratory Rate 12 11 L 12 Blood Pressure 101/55 L Pulse Oximetry 97 97 97 06/26/18 00:45 06/26/18 01:00 06/26/18 01:15 Temperature Pulse Rate 59 L 58 L 59 L Respiratory Rate 12 11 L 11 L Blood Pressure 95/49 L Pulse Oximetry 96 96 96 06/26/18 01:30 06/26/18 01:45 06/26/18 02:00 Temperature Pulse Rate 63 63 71 Respiratory Rate 13 13 13 Blood Pressure 143/62 H Pulse Oximetry 95 95 94 L 06/26/18 02:15 06/26/18 02:30 06/26/18 02:45 Temperature Pulse Rate 68 64 63 Respiratory Rate 19 12 10 L Blood Pressure Pulse Oximetry 92 L 93 L 93 L 06/26/18 03:00 06/26/18 03:01 06/26/18 03:15 Temperature Pulse Rate 63 62 59 L Respiratory Rate 12 11 L 11 L Blood Pressure 118/58 L Pulse Oximetry 94 L 94 L 94 L 06/26/18 03:30 06/26/18 03:45 06/26/18 03:49 Temperature Pulse Rate 64 61 Respiratory Rate 10 L 9 L Blood Pressure Pulse Oximetry 94 L 93 L 95 06/26/18 04:00 06/26/18 06:00 06/26/18 08:00 Temperature 98 F Pulse Rate 63 68 62 Respiratory Rate 15 19 Blood Pressure 119/54 L Pulse Oximetry 94 L 97 06/26/18 08:01 06/26/18 08:38 06/26/18 09:00 Temperature 98.3 F Pulse Rate 65 86 71 Respiratory Rate 17 20 20 Blood Pressure 149/63 H 168/67 H Pulse Oximetry 94 L 96 88 L Intake & Output 06/25/18 06/26/18 06/26/18 18:59 06:59 18:59 Intake Total 720 / 720 400 / 400 Output Total 550 / 550 400 / 400 Balance 170 / 170 0 / 0 Weight 80.4 kg Intake: Oral 720 / 720 400 / 400 Output: Urine 550 / 550 400 / 400 Other: # Incontinent Voids 3 Date of Last Bowel Movement 06/23/18 06/23/18 06/23/18 # Bowel Movements 0 Narrative: Chronically ill-appearing elderly female in [facility]. SKIN: Warm and Pale. HEENT: Pupils equal and round. Pale conjunctiva. Throat clear. NECK: Supple no tender LAD or JVD. HEART: RRR no m/r/g. LUNGS: Few basal crackles and no Wheezes ABDOMEN: +BS, soft, nondistended. Obese and No organomegaly. EXTREMITIES: No edema. Diminished pedal pulses. NEURO: Awake and oriented . No focal deficits. - Urinary Catheter Management Indwelling Urethral Catheter Cath placed during this visit: yes, but has since been removed by the nurse Reason for continuing: Continue criteria not met Insertion date: 06/08/18 Insertion time: 16:15 Removal date: 06/15/18 Removal time: 12:00 Assessment and Plan - Assessment (1) GI bleed requiring more than 4 units of blood in 24 hours, ICU, or surgery Code(s): K92.2 - Gastrointestinal hemorrhage, unspecified Status: Acute (2) Anemia Code(s): D64.9 - Anemia, unspecified Status: Acute Qualifiers: Other causes of anemia: acute posthemorrhagic (3) Shock Code(s): R57.9 - Shock, unspecified Status: Acute (4) Sepsis Code(s): A41.9 - Sepsis, unspecified organism Status: Acute - Plan Patient had pneumonia, and back to ICU on Bipap Patient is in ARF on zyvox/zosyn Acute renal failure appears to be due to hypoperfusion of the kidney as a result of sepsis Creatinine 1.8. Okay to discharge and follow-up as outpatient --- Follow BMP and the urine out put.
== END 2018-06-26 10:15 ==
LOC: NEPE 02:05 → NEDA 04:45 → HIMC 06:25 → N04 06-15 15:35 → HIMC 06-18 12:25
PROVIDERS: ADMIT Family Medicine; ATTEND Family Medicine
PROC: COLONOS (2018-05-27 14:14)
PROC: PANENDO (2018-05-27 14:14)